=== PATIENT | female | born 1950 | race Caucasian/White ===

== ENCOUNTER → 2019-06-10 08:50 | Outpatient (BNVA) | payer MEDICARE, SELFPAY | PROVIDERS: Family Provider Electrodiagnostic Medicine; PCP Electrodiagnostic Medicine; Visit Provider Specialist | DX: Z48.89 Encounter for other specified surgical aftercare (principal); Z96.642 Presence of left artificial hip joint | CPT/HCPCS: 73502 ==

== ENCOUNTER 2019-07-02 06:00 | Outpatient (CLI) | payer MEDICARE, SELFPAY | END 2019-07-02 08:00 | disposition home or self-care (01) | LOC: CCL 01-14 12:26 | PROVIDERS: Family Provider Electrodiagnostic Medicine; PCP Electrodiagnostic Medicine; Visit Provider Internal Medicine Cardiovascular Disease | DX: I20.0 Unstable angina (principal); I10 Essential (primary) hypertension; E78.5 Hyperlipidemia, unspecified | CPT/HCPCS: J1644; J2001 ==

== ENCOUNTER 2019-07-02 12:22 | Observation (INO) | payer MEDICARE, SELFPAY ==
[2019-07-02] VITALS (30 sets, daily range): BP systolic 105–143; BP diastolic 52–80; PULSE 55–84; RESP 11–23; TEMP 36.7–36.9; O2SAT 89–98; BMI 26.9
--- NOTE | 2019-07-02 09:00 | XACV_ITS ---
Ht: 163 cm Wt: 71 kg BSA: 1.81 m2 Gender: Female : 1950 Any Known Allergies: No known allergies Exam Priority: Routine Procedure(s): Procedure Description: Diagnostic procedure Procedure Description: PCI procedure Procedure Description: Left Heart Catheterization Procedure Description: Drug Eluting Coronary Stent Procedure Description: PTCA Procedure Description: Miscellaneous Procedure Description: ACT Procedure Description: Coronary Angiography Diagnostic Cath Status: Elective Diagnostic Findings CX has 0% stenosis. RCA has 0% stenosis. LM: Mild 30% stenosis, ROSA: 3 flow. pLAD to Mid Left Anterior Descending Coronary Artery: Moderate 60% stenosis, ROSA: 3 flow. 1st Diagonal Coronary Artery: Severe 90% stenosis, ROSA: 2 flow. Coronary angiography shows right dominance. PCI Status: Elective PCI Indication: New Onset Angina <= 2 months Interventional Findings 1st Diagonal Coronary Artery: 90% stenosis treated with AB MINI TREK 2.00X6 RX BALLOON, T R BOBBY 2.25X8 SAMREEN, and MDT R BOBBY 2.25X12 SAMREEN. 0% residual stenosis, ROSA: 3 flow. Please note that these 2 stents were placed in overlapping fashion due to distal remnant significant stenosis after placing for stent. Both these stents were then postdilated with stent balloon at high MIRELLA. Wire was then crossed into mid LAD. Bifurcating mid LAD was then dilated with noncompliant M.D EUPHORA 2.5x6 millimeters balloon at 12 MIRELLA. Excellent angiographic result with ROSA-3 flow was achieved in both diagonal and mid to distal LAD. Conclusions There is moderate coronary artery disease with two vessel disease. 1st Diagonal Coronary Artery was treated with Balloon and two Drug Eluting Stent. Recommendations 1-Return to inpatient for close monitoring and routine cath care2-Risk factor modification for secondary prevention3-Statin and aspirin 81 mg life-long, if tolerated4-Continue Plavix 75mg p.o. daily for at least one year. We will assess at the end of one year again to continue if further or not5-Continue optimal medical management6-Follow up with Dr. Anna in four weeks and your primary care in 10 days. Pressures Phase:Rest AO : 95 mmHg / 64 mmHg ( 78 mmHg ) @ 5:16:00 AM 103 mmHg / 71 mmHg ( 86 mmHg ) @ 5:16:00 AM 93 mmHg / 59 mmHg ( 75 mmHg ) @ 5:19:00 AM 109 mmHg / 62 mmHg ( 81 mmHg ) @ 5:27:00 AM 92 mmHg / 60 mmHg ( 76 mmHg ) @ 5:42:00 AM 115 mmHg / 68 mmHg ( 88 mmHg ) @ 5:48:00 AM 106 mmHg / 61 mmHg ( 80 mmHg ) @ 5:57:00 AM Clinical Evaluation EBL: 5mL-10mL Procedural Details ns bolus stopped 142ml infused. Cardiovascular Instability: No. [facility] time/date stamp having techinal issues. All documentation and procudure done on 07/02/2019. Start time 0945. Correct Patient: Yes; Correct Procedure: Yes; Correct Site: Yes; Correct Patient Position: Yes; Correct Supplies: Yes; Dried Flammable Prep: Yes; Blood Products Available: No;. [id number]. Procedure Consent Obtained. Pre-Procedure Time Out. Identified patient by full name and date of as verbalized by the patient/guarantor. Does the consent match the physician's order: Yes. Accurate & Complete Informed Consent: Yes. Inpatient/Outpatient History & Physical on Chart: Yes. If H&P is completed, is and addenduem needed: N/A; If yes, is the addendum complete: N/A. Visualize and Verify Site with Patient/Guarantor: N/A. Relevant Radiology Images available: Yes. Pre-op teaching completed and patient verbalized understanding. The risks, benefits, and alternatives of sedation and/or procedure were discussed by physician. The patient agrees to continue. Procedure started. Current diagnosis: Unstable angina. PERRLA. 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 Lungs clear x 5 lobes. IV Site on Arrival: 20 gauge in the left anticubital. IV Fluids: 0.9% NaCl at KVO. 0 mL infused prior to analytical lab technician. Pre Procedural Pulses: bilateral dorsalis pedis was 2+. Pre Procedural Pulses: bilateral posterior tibial was 2+. Pre Procedural Pulses: bilateral radial was 2+. Oxygen started at 2liters/min via nasal canula. right groin was prepped with chloroprep then draped in the usual sterile fashion. right radial was prepped with chloroprep then draped in the usual sterile fashion. Physician notified. Correct patient, site and procedure confirmed by cath team. Physician arrived. Equipment: 6F - Radial. Cardiac Cath Pack. ACIST Manifold Kit Model BT 2000. Heparinized Saline (2 units/mL), 1000 mL bag. Baseline sample Acquired. HR: 60 BPM. Physician scrubbed in. Immediate Pre-Procedure Time Out. Lidocaine 1% infiltrated to the right radial. Arterial access obtained. A 5 [place] citizen TIG catheter in over wire. Multiple views taken of left coronary artery. Catheter redirected to the RCA. Multiple views taken of right coronary artery. Catheter out. Inventory is My Dentistgar XT .014 190cm [address] Guidewire. 6 [place] citizen XB 3 guide catheter was inserted over the wire. [place] guidewire was advanced through the guide catheter to lesion in the diaganol. Inflation number : 1 A AB MINI TREK 2.00X6 RX BALLOON was prepped and advanced across the 1st Diag , then inflated to 8 MIRELLA for 0:10 seconds. Inflation number: 2 The AB MINI TREK 2.00X6 RX BALLOON was reinflated across the 1st Diag, to 8 MIRELLA for 0:08 seconds. Inflation number: 3 The AB MINI TREK 2.00X6 RX BALLOON was reinflated across the 1st Diag, to 10 MIRELLA for 0:10 seconds. Inflation number: 4 The AB MINI TREK 2.00X6 RX BALLOON was reinflated across the 1st Diag, to 12 MIRELLA for 0:14 seconds. Patient's family updated. Results checked. Balloon out. Inflation Number : 5 A MDT R BOBBY 2.25X8 SAMREEN -Lot Number#[id number] exp 12-04-2020 was prepped and advanced across the 1st Diag. The stent was deployed at 12 MIRELLA for 0:08 seconds. Inflation number: 6 The stent balloon was then re-inflated across the 1st Diag to 12 MIRELLA for 0:06 seconds. Inflation number: 7 The stent balloon was then re-inflated across the 1st Diag to 14 MIRELLA for 0:11 seconds. Stent balloon out over wire. [place] repositioned to distal LAD. Wire out. Inflation number : 1 A MDT NC EUPHORA RX 2.66M50SW BALLOON was prepped and advanced across the Mid LAD , then inflated to 14 MIRELLA for 0:10 seconds. ACT drawn. Results 328 seconds. Therapeutic limits - pre-heparin administration 90-150 seconds and monitoring heparin during a vascular procedure >250 seconds. Inflation Number : 8 A MDT R BOBBY 2.25X12 SAMREEN -Lot Number#[id number] exp 03-07-2020 was prepped and advanced across the 1st Diag. The stent was deployed at 16 MIRELLA for 0:16 seconds. Inflation number: 9 The stent balloon was then re-inflated across the 1st Diag to 0 MIRELLA for 0:00 seconds. Inflation number: 10 The stent balloon was then re-inflated across the 1st Diag to 16 MIRELLA for 0:04 seconds. Guide catheter out. A TR Band was successful obtaining hemostatsis at the Right Radial artery insertion site. TR band placed. Hemostasis obtained. Post Procedure: Pulses reassessed and unchanged. PERRLA. 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 No VTE prophylaxis required. Total IV fluids: 209 mL. Fluoro: 15:40. Contrast type used: Omnipaque 300 mgI/mL, 500 mL bottle. Medication's Wasted: Nitro = 49.4 mg. Medication's Wasted: Heparin = 4000 units. Medication's Wasted: Lidocaine 1% = 18 mL. Complications: none. Estimated blood loss: 5mL-10mL. Procedure completed. Patient transferred by wheelchair to 1st floor. Post-op diagnosis: obstructive disease of diag. PCI Indication: New Onset Angina. [facility] Clinical Fraility Score: 4: Vulnerable. Librarian Helper Indications: New Onset Angina. Chest Pain Symptom Assessment: Typical Angina Symptoms. Vital chart was stopped. Site: Right Radial artery Sheath Size: 6 Fr Hemostasis Method: TR Band Hemostasis Success: Successful Procedure Medications Start: 11:03 AM Stop: : AM Medication: Versed Amount: 1 mg Route: I.V. Start: 11:03 AM Stop: : AM Medication: Fentanyl Amount: 25 mcg Route: I.V. Start: 11: AM Stop: : AM Medication: Versed Amount: 1 mg Route: I.V. Start: 11: AM Stop: : AM Medication: Fentanyl Amount: 25 mcg Route: I.V. Start: 11:15 AM Stop: :15 AM Medication: Heparin Amount: 5000 units Route: I.V. Start: 11:23 AM Stop: :23 AM Medication: Heparin Amount: 2000 units Route: I.V. Start: 11:27 AM Stop: :27 AM Medication: Versed Amount: 1 mg Route: I.V. Start: 11:27 AM Stop: 11:27 AM Medication: Fentanyl Amount: 25 mcg Route: I.V. Start: 11:38 AM Stop: 11:38 AM Medication: 0.9% Saline Amount: 250 ml Route: I.V. bolus Start: 11:48 AM Stop: 11:48 AM Medication: Nitrogylcerin Amount: 200 mcg Route: I.C. Start: 11:50 AM Stop: 11:50 AM Medication: Versed Amount: 1 mg Route: I.V. Start: 11:50 AM Stop: 11:50 AM Medication: Fentanyl Amount: 25 mcg Route: I.V. Start: 11:57 AM Stop: 11:57 AM Medication: Nitrogylcerin Amount: 200 mcg Route: I.C. I, the attending physician, have reviewed and verified all procedure medications. Yes, all medications given per verbal order History/Risk Factors Hypertension: Yes Dyslipidemia: Yes Peripheral Arterial Disease (PAD): No Myocardial Infarction (TN): No Obesity: No Renal Disease: No Tobacco Use: Never Prior Interventions PCI: Yes CABG: No Valve Surgery: No Date of PCI: 11/17/2017 Report Signatures Finalized by:Rafa Anna MD on 07/16/2019 1:10:57 PM
[2019-07-02] MEDS: diphenhydrAMINE 50 mg Capsule PO (09:38)
[2019-07-02 09:48] LABS: Hematocrit 39.5 % (37.0-47.0); Hemoglobin 12.9 g/dL (11.5-15.3); Mean Corpuscular HGB Conc 32.7 g/dL (30.0-36.0); Mean Corpuscular Hemoglobin 30.8 pg (28.0-34.0); Mean Corpuscular Volume 94.3 fL (81-99); Mean Platelet Volume 9.3 fL (7.4-10.4); Platelet Count 325 10^3/cmm (130-400); Red Blood Count 4.19 10^6/uL (4.1-5.3); Red Cell Distribution Width 13.4 % (12.1-15.1); White Blood Count 4.9 10^3/uL (4.0-10.0)
[2019-07-02 10:01] LABS: Anion Gap 16.3 (5-19); Blood Urea Nitrogen 24 mg/dL (8-23); Calcium 9.9 mg/dL (8.5-10.5); Carbon Dioxide 29 mmol/L (22-29); Chloride 97 mmol/L (98-107); Glucose 95 mg/dL (74-106); Osmolality Calculated 283 mOsm/kg (285-295); Potassium 4.3 mmol/L (3.5-5.1); Sodium 138 mmol/L (136-145)
[2019-07-02 10:18] LABS: INR 0.99 (0.8-1.2)
[2019-07-02 10:38] LABS: Absolute Eosinophils 0.1 10^3/cmm (0.0-0.7); Absolute Segmented Neutrophil 3.6 10/cmm (1.6-7.1); Band Neutrophils Absolute 0.2 10^3/cmm (0.0-1.2); Eosinophils 3 %; Lymphocytes 12 %; Monocytes Absolute 0.2 10^3/cmm (0.1-0.6); Platelet Estimate Normal (Normal); Segmented Neutrophils 75 %; Total Cells Counted 100 (0-100)
[2019-07-02] MEDS: sertraline 50 mg Tablet 25 MG PO (14:57)
[2019-07-02] MEDS: atorvastatin 40 mg Tablet 20 MG PO (14:58)
[2019-07-02] MEDS: meloxicam 7.5 mg tablet 15 MG PO (14:58)
[2019-07-02] MEDS: clopidogrel 75 mg Tablet PO (14:58)
[2019-07-02] MEDS: docusate sodium 100 mg Capsule PO (14:58)
[2019-07-02] MEDS: aspirin 81 mg EC Tablet PO (14:58)
[2019-07-02] MEDS: FUROsemide 40 mg Tablet PO (17:26)
[2019-07-02] MEDS: levETIRAcetam 500 mg Tablet PO (17:27)
--- NOTE | 2019-07-02 20:10 | PC.NURSE ---
2 CC REMOVED FROM TR BAND PER PROTOCOL FOR TR BAND REMOVAL, WILL CONTINUE TO MONITOR SITE. CALL LIGHT WITHIN REACH. CARE CONTINUED.
[2019-07-02] MEDS: ropinirole 1 mg Tablet 5 MG PO (21:01)
--- NOTE | 2019-07-02 21:30 | PC.NURSE ---
2 CC's of air removed from patient's TR band, patient tolerating well, no oozing or blood at site. Will continue to monitor patient and call light within reach. Care continued.
--- NOTE | 2019-07-02 22:30 | PC.NURSE ---
Removed 3 CC's of air from TR band, site is clean without blood, no swelling noted at this time. Call light within reach. Care continued.
--- NOTE | 2019-07-02 23:56 | PC.NURSE ---
Patient had small episode of emesis of what appeared orange in color and particles of food. Cool rag applied to forehead of patient, notified Dr. Byrd verbally, received new order for Zofran IVP. Call light within reach. Care Continued.
[2019-07-03] MEDS: ondansetron 2 mg/ML SDV 2 mL 4 MG IVP (00:12)
[2019-07-03 03:14] VITALS: BP 123/56; PULSE 65; RESP 19; TEMP 36.9; O2SAT 90
[2019-07-03] MEDS: isosorbide mononitrate ER 60 mg Tablet PO (06:01)
[2019-07-03 07:37] VITALS: BP 93/50; PULSE 67; RESP 18; TEMP 36.6; O2SAT 93
[2019-07-03] MEDS: docusate sodium 100 mg Capsule PO (08:55)
[2019-07-03] MEDS: meloxicam 7.5 mg tablet 15 MG PO (08:55)
[2019-07-03] MEDS: sertraline 50 mg Tablet 25 MG PO (08:56)
[2019-07-03] MEDS: pantoprazole DR 40 mg Tablet PO (08:56)
[2019-07-03] MEDS: metoprolol succinate ER (24 HR) 25 mg Tablet 12.5 MG PO (08:56)
[2019-07-03] MEDS: aspirin 81 mg EC Tablet PO (08:56)
[2019-07-03] MEDS: levETIRAcetam 500 mg Tablet PO (08:56)
[2019-07-03] MEDS: clopidogrel 75 mg Tablet PO (08:56)
[2019-07-03] MEDS: FUROsemide 40 mg Tablet PO (08:56)
[2019-07-03] MEDS: atorvastatin 40 mg Tablet 20 MG PO (08:57)
--- NOTE | 2019-07-03 11:04 | PC.CHAP ---
Pastoral Care Encounter/Spiritual Assessment Type of Contact [] Declined housing specialist visit [] Patient/Family/Request visit [] Outpatient visit [] Follow-up visit [] Physician referral [] Code/Alert [x] Routine visit [] Staff referral [] Actively dying [] Patient sleeping [] Family support [] [] Out of room [] Palliative care [] [] Receiving care in room [] Pre-surgical visit [] Trauma [] Long length of stay [] ICU visit [] Other: Relational/Emotional Strength [] Patient feels connected with others/family/visitors/staff [] Distress [] Loneliness/isolation [] Abandonment Spirituality of Patient [x] Person of Sarah [] Attends Shinto of their Sarah [x] Believes in Prayer [] Reads Bible or Scientologist materials [] There are Spiritual issues to be addressed Mechanical Laboratory Technician Interventions [x] Prayer [] Active listening [] Non-anxious presence [] Spiritual/emotional support [] Crisis/trauma care [] Spiritual counseling [] Bereavement support [] Provided bereavement packet [] Provided Bible/devotional materials [] Provided toy/stuffed animal, coloring book to patient or family member [] Provided Communion [] Anointing/[place] [] Salvation [x] Completed spiritual assessment [] Other: Impact on Illness or Injury [] Angry [] Fearful [] Anxious [] Often cries [] Exhaustion [] Unable to work [] Unable to attend cheondoism [] Unable to walk/stand [] Unable to read [] Unable to drive [] Unable to eat/drink [] Unable to sleep [] Unable to be with family [] Patient intubated [] Other: Summary Patient expecting to leave unit today. Patients sister present to help take her home. Time spent with patient 15 min
[2019-07-03 12:00] VITALS: BP 109/46; PULSE 71; RESP 18; O2SAT 91
--- NOTE | 2019-07-03 13:46 | P.SS_ITS ---
Short Stay Summary Providers Date of Admit/Discharge: 07/03/19 Attending Provider: Rafa Anna MD Primary Care Provider: Justin Chapman DO Chief Complaint: Unstable angina HPI History of Present Illness Karina Leija is a 69 year old female Past medical history significant for coronary artery disease history of prior proximal to mid LAD stent, history of nonobstructive disease of diagonal branch, History of hypertension, history of hyperlipidemia, history of aortic valve mild to moderate stenosis and mild insufficiency underwent coronary angiogram yesterday for Worsening of angina despite of optimization of medicine. She was found to have ostial and proximal significant 90 and 75% diagonal branch disease which has worsened from the prior coronary angiogram couple of years ago. She was treated with balloon angioplasty followed by 2 overlapping drug-eluting stent from ostial to proximal diagonal branch. Excellent angiographic result with ROSA-3 flow was achieved. LAD stent was widely patent. She has 30% distal left main. Circumflex and RCA has luminal irregularities. Patient tolerated procedure well without any post op complication. She was kept overnight for any possible complication. This morning she is doing fine from a cardiac perspective denies chest pain PND orthopnea. She has mild bruising of the right wrist otherwise stable. She is being discharged. Home Meds/Allergies Home Medications and Allergies Home Medications Medication Instructions Recorded Confirmed Type acetaminophen 500 mg tablet 1,000 mg PO .prn PRN tab 06/10/19 07/02/19 History aspirin 81 mg tablet,delayed 81 mg PO ONCE 06/10/19 07/02/19 History release clopidogrel 75 mg tablet 75 mg PO ONCE 06/10/19 07/02/19 History docusate sodium 100 mg capsule 100 mg PO ONCE cap 06/10/19 07/02/19 History isosorbide mononitrate 60 mg 60 mg PO QAM 06/10/19 07/02/19 History tablet,extended release 24 hr levetiracetam 500 mg tablet 500 mg PO BID 06/10/19 07/02/19 History magnesium 400 mg PO ONCE 06/10/19 07/02/19 History meloxicam 15 mg tablet 15 mg PO ONCE 06/10/19 07/02/19 History omeprazole 40 mg capsule,delayed 40 mg PO ONCE cap 06/10/19 07/02/19 History release potassium chloride 20 mEq 20 meq PO ONCE tab 06/10/19 07/02/19 History tablet,extended release sertraline 25 mg tablet 25 mg PO Q24H 06/10/19 07/02/19 History simvastatin 20 mg tablet 20 mg PO ONCE 06/10/19 07/02/19 History furosemide 40 mg tablet 40 mg PO BID 06/20/19 07/02/19 History ropinirole 5 mg tablet 5 mg PO QDAY 06/20/19 07/02/19 History Allergies Allergy/AdvReac Type Severity Reaction Status Date / Time No Known Allergies Allergy Verified 07/02/19 10:00 PFSH Acute PFSH: Statuses (acute, chronic, etc) shown below reflect problem list status as previously entered and may not be historically accurate Medical History (Updated 07/03/19 @ 13:54 by Rafa Anna MD) Angina pectoris (Acute) Status post PCI to diagonal branch. No more angina Aortic stenosis, mild (Acute) Stable CAD (coronary artery disease), [place] coronary artery (Acute) Diagonal branch for significant ostial and proximal diagonal lesion. It was treated with 2 overlapping drug-eluting stents Primary osteoarthritis of both hips (Acute) Surgical History History of total hip arthroplasty (Acute) Family History Grandmother CAD (coronary artery disease) Hypertension Father CAD (coronary artery disease) Cancer Diabetes Hypertension Lung disease Mother Cancer Dementia Diabetes Hypertension Daughter Chronic kidney disease (CKD) eldest Hypertension Daughter Chronic kidney disease (CKD) third child Sister Hyperlipidemia all sisters Hypertension Lung disease Unknown Suicide maternal aunt-GSW- mid 40s Denies family history of Clotting disorder Psychiatric illness Anesthesia complication Bleeding disorder Family history of premature coronary artery disease Stroke Social History Smoking and tobacco status: never smoked Second hand smoke exposure: No Alcohol intake: never Vitals/I&O/Wt Last Vital Signs Temp 97.8 F 07/03/19 07:37 Pulse 71 07/03/19 12:00 Resp 18 07/03/19 12:00 BP 109/46 07/03/19 12:00 Pulse Ox 91 07/03/19 12:00 07/02/19 07/03/19 07/03/19 22:59 06:59 14:59 Intake Total 240 / 240 0 / 240 360 / 360 Output Total 4 / 4 60 / 64 Balance 236 / 236 -60 / 176 360 / 360 Weight last 48 hrs Weight 157 lb Physical Exam Narrative: EXAM NARRATIVE: GENERAL: Patient is alert, awake and oriented x3. NECK: No jugular vein distension. HEENT: No cyanosis. No icterus. No pallor. HEART: Regular S1 and S2. 2/6 systolic and 80 diastolic murmur, rub or gallop. LUNGS: Clear to auscultate bilaterally. ABDOMEN: Soft, nontender and nondistended. Positive bowel sounds. No guarding, rebound or tenderness. CENTRAL NERVOUS SYSTEM: Grossly nonfocal. EXTREMITIES: Lower extremities without edema bilaterally. Right wrist mild bruising Hospital Course Admission Diagnoses: Angina unstable Coronary artery disease Hypertension Aortic stenosis Hospital Course: As above Discharge Summary: As above SSS Data Data Completed and Pending: Pending at discharge Category Date Time Status MATERIAL ATTENDANT request for service Routin e Exams 07/02/19 09:00 Taken Diagnoses at Discharge Discharge Diagnosis (1) CAD (coronary artery disease), [place] coronary artery: Status: Acute Problem details: Diagonal branch for significant ostial and proximal diagonal lesion. It was treated with 2 overlapping drug-eluting stents (2) Aortic stenosis, mild: Status: Acute Problem details: Stable (3) Angina pectoris: Status: Acute Problem details: Status post PCI to diagonal branch. No more angina Discharge Plan Discharge Patient Disposition: Home, Self-Care Condition: Stable Prescriptions: Continued ropinirole [Requip] 5 mg tablet 5 mg PO QDAY RF: 0 furosemide 40 mg tablet 40 mg PO BID RF: 0 metoprolol succinate 25 mg capsule,sprinkle,ER 24hr 12.5 mg PO QDAY Qty: 30 RF: 3 nitroglycerin 0.4 mg tablet, sublingual 0.4 mg SUBLINGUAL Q5M PRN (Reason: chest pain) Qty: 30 RF: 2 sertraline [Zoloft] 25 mg tablet 25 mg PO Q24H RF: 0 isosorbide mononitrate 60 mg tablet extended release 24 hr 60 mg PO QAM RF: 0 clopidogrel 75 mg tablet 75 mg PO ONCE RF: 0 potassium chloride 20 mEq tablet extended release 20 meq PO ONCE RF: 0 aspirin 81 mg tablet,delayed release (DR/EC) 81 mg PO ONCE RF: 0 magnesium 400 mg PO ONCE RF: 0 simvastatin 20 mg tablet 20 mg PO ONCE RF: 0 docusate sodium [Colace] 100 mg capsule 100 mg PO ONCE RF: 0 meloxicam 15 mg tablet 15 mg PO ONCE RF: 0 levetiracetam 500 mg tablet 500 mg PO BID RF: 0 omeprazole 40 mg capsule,delayed release(DR/EC) 40 mg PO ONCE RF: 0 acetaminophen [Tylenol Extra Strength] 500 mg tablet 1,000 mg PO .prn PRN (Reason: Pain) RF: 0 Discharge Orders: Discharge Order (Routine); Ordered 07/03/19 Ordered By: Rafa Anna Discharge Diet: Cardiac Discharge Activity: Resume usual activity Activity Restrictions/Additional Instructions: No lifting Or driving with right Hand next 2 days. Follow-up with Chelsie Gamble cardiology nurse Practitioner in [address] Anna in 3 months. Continue Plavix for at least 2 years Attestations Medical Necessity Statement*: Patient can be discharged home today Time Spent in Patient Care*: less than 30 min Quality Metrics Clinical Quality Measures: During this hospital stay, did patient experience: None Coding Level of Care Code New Pt Acute Utilization Management Um Nurse for Chg Fwd Patient Type New History Expanded Problem Focused Exam Expanded Problem Focused Medical Decision Making Moderate Complexity Diagnoses CAD (coronary artery disease), [place] coronary artery I25.10 Aortic stenosis, mild I35.0 Angina pectoris I20.9
[2019-07-03 14:40] VITALS: BP 109/46; PULSE 71; RESP 18; O2SAT 91
== END 2019-07-03 15:17 | disposition home or self-care (01) ==
LOC: CSU 12:24
PROVIDERS: Admitting Provider Internal Medicine Cardiovascular Disease; Family Provider Electrodiagnostic Medicine; PCP Electrodiagnostic Medicine; Visit Provider Internal Medicine Cardiovascular Disease
DX: I25.110 Atherosclerotic heart disease of native coronary artery with unstable angina pectoris (principal); I35.0 Nonrheumatic aortic (valve) stenosis; Z79.82 Long term (current) use of aspirin; Z82.49 Family history of ischemic heart disease and other diseases of the circulatory system; Z83.3 Family history of diabetes mellitus; I10 Essential (primary) hypertension
CPT/HCPCS: 12345; 36415; 80048; 85007; 85027; 85347; 85610; 93454; 96375; C1725; C1769; C1874; C1887; C1894; C9600; G0378; J1644; J2250; J2405; J3010; J3490; J7030; Q0163; Q9967

== ENCOUNTER → 2019-07-10 11:50 | Outpatient (BNVA) | payer MEDICARE, SELFPAY | PROVIDERS: Family Provider Electrodiagnostic Medicine; PCP Electrodiagnostic Medicine; Visit Provider Nurse Practitioner Family | DX: I25.10 Atherosclerotic heart disease of native coronary artery without angina pectoris (principal); I35.0 Nonrheumatic aortic (valve) stenosis; I20.9 Angina pectoris, unspecified | CPT/HCPCS: 80048 ==

== ENCOUNTER 2019-07-11 14:35 | Emergency (ER) | payer MEDICARE, SELFPAY ==
[2019-07-11 14:36] VITALS: BP 118/73; PULSE 75; RESP 18; TEMP 36.8; O2SAT 97; BMI 26.4
--- NOTE | 2019-07-11 14:40 | ED_ITS ---
Entered by Yulia Agustin, acting as scribe for Cinthia Newsome MD HPI - Chest Pain General: Chief Complaint: Chest Pain Stated Complaint: CHEST PRESSURE Time Seen by Provider: 07/11/19 14:39 Source: patient and RN notes reviewed Mode of arrival: EMS Limitations: no limitations History of Present Illness: HPI narrative: 69 yo female presents to ED with complaints of chest pain. She said the pain radiates up to L shoulder and into her L jaw. She states Nitro helped relieve the pain. She had 2 stents placed 2 weeks ago. She said she has tunnel vision. She said it began about 0900 this morning when she woke and the pain has worsened throughout day. She says that she has been having similar chest pain since the stents - but today it didn't go away as it normally does. complaint: chest pain Pertinent past history: coronary artery disease and other (stents placed 2 weeks ago) Onset (ago): hour(s) (5.5) Timing of current episode: constant Prior episodes: Yes Onset: during rest Pain location: substernal Pain radiation: jaw/teeth and left shoulder Severity: moderate Quality: similar to prior OK Relieving factors: nitroglycerin Exacerbating factors: exertion Context: recent surgery (2 stents placed 2 weeks ago) Associated symptoms: Reports abdominal pain; Deny diaphoresis, dyspnea or fever(s) Treatment prior to arrival: nitroglycerin Risk Factors: Thoracic aortic dissection risk factors: none Review of Systems Const: Denies: fever, chills, change in appetite, night sweats or diaphoresis Eyes: Denies: change in vision ENMT: Denies: throat pain or ear pain Card: Denies: swelling of feet/ankles, shortness of breath on exertion or shortness of breath when lying down Resp: Denies: shortness of breath or productive cough GI: Reports: abdominal pain : Denies: flank pain or difficulty urinating Musc: Denies: back pain Skin/Breast: Denies: rash Neuro: Denies: headache, numbness in extremities or weakness in extremities Psych: Denies: depression Endo: Denies: excessive thirst Clement/Lymph: Denies: easy bruising [facility] ED PFSH: Medical History (Updated 07/11/19 @ 17:50 by Cinthia Newsome MD) Angina pectoris Status post PCI to diagonal branch. No more angina Aortic stenosis, mild Stable CAD (coronary artery disease), [place] coronary artery Diagonal branch for significant ostial and proximal diagonal lesion. It was treated with 2 overlapping drug-eluting stents Primary osteoarthritis of both hips Surgical History (Updated 07/10/19 @ 11:04 by Monalisa Brown RN) History of total hip arthroplasty Social History (Updated 07/10/19 @ 11:04 by Monalisa Brown RN) Smoking and tobacco status: former smoker Second hand smoke exposure: Yes Alcohol intake: never Physical Exam Const: COMMON NORMALS: no apparent distress, oriented x3 and alert GENERAL APPEARANCE: cooperative and well developed; not in distress and not diaphoretic ORIENTATION/CONSCIOUSNESS: Yes awake, Yes oriented to person, Yes oriented to place and Yes oriented to time HENMT: COMMON NORMALS: normocephalic, head/scalp atraumatic, external ears normal, external nose normal and moist oral mucous membranes HEAD & SCALP: normocephalic and atraumatic FACE & SINUS: normal facial exam; no facial tenderness NOSE: external nose normal EXTERNAL EAR: Yes external ears normal MOUTH: oral and palatal mucosa normal, lip normal and tongue normal TEETH & GINGIVA: no abnormal tooth and associated gingiva THROAT: posterior oropharynx normal and uvula midline Eye: COMMON NORMALS: PERRL and EOMs intact bilaterally PUPIL: Yes PERRL Neck/C-Spine: COMMON NORMALS: full ROM, supple and no JVD GENERAL: Yes normal visual inspection and Yes trachea midline CERVICAL SPINE: No cervical spine tenderness Lymph: LYMPHATIC: no lymphadenopathy noted Chest: COMMONS NORMALS: inspection of chest normal Resp: COMMON NORMALS: normal respiratory effort, no use of accessory muscles and clear to auscultation bilaterally EFFORT & INSPECTION: Yes able to speak in complete sentences and Yes symmetric chest movement AUSCULTATION: clear to auscultation bilaterally Cardio: COMMON NORMALS: no JVD, regular rate, regular rhythm, no gallops and peripheral pulses 2+ throughout RATE: regular rate RHYTHM: regular rhythm HEART SOUNDS: murmur systolic (2) PERIPHERAL PULSES: pulses 2+ throughout GI: COMMON NORMALS: normal to inspection, nondistended, normoactive bowel sounds, soft to palpation and non-tender PALPATION: Yes soft Back/Pelvis: COMMON NORMALS: thoracic and lumbar spine normal to inspection and thoraco-lumbar ROM normal Extremity: COMMON NORMALS: normal to inspection, full ROM and normal capillary refill Neuro: COMMON NORMALS: oriented x3, CN's II-XII intact bilaterally, moves all extremities, no focal motor deficits and no sensory deficits noted SENSORIUM/ORIENTATION: Yes alert, Yes oriented to person, Yes oriented to place and Yes oriented to time Psych: COMMON NORMALS: mental status grossly normal, thought process normal, cooperative, affect normal, speech normal and activity/motor behavior normal SPEECH: Yes normal speech THOUGHT PROCESS: normal thought process Skin: COMMON NORMALS: no rashes or lesions noted and skin turgor normal GENERAL SKIN EXAM: no rashes or lesions noted and turgor normal Course ED course: Patient with recent stents. She has been having intermittent chest pains since then. She saw the DEVELOPMENT SCIENTIST for cardiology yesterday and things were fine. She is taking all of her medications as prescribed. Her EKGs and troponins here are reassuring and she is feeling better on re-evaluation. She will contact Dr. Anna if the symptoms continue. Vital Signs: Vital signs: Vital Signs Temperature 98.2 F 07/11/19 14:36 Pulse Rate 75 07/11/19 18:05 Respiratory Rate 20 H 07/11/19 18:05 Blood Pressure 108/52 07/11/19 18:05 Pulse Oximetry 94 07/11/19 18:05 MDM - Chest Pain Lab Data: Labs: Lab Results 07/11/19 07/11/19 07/11/19 Range/Units 14:22 14:22 14:22 WBC 4.8 (4.0-10.0) 10^3/ uL RBC 3.89 L (4.1-5.3) 10^6/u L Hgb 11.9 (11.5-15.3) g/dL Hct 36.9 L (37.0-47.0) % MCV 94.9 (81-99) fL MCH 30.6 (28.0-34.0) pg MCHC 32.2 (30.0-36.0) g/dL RDW 13.4 (12.1-15.1) % Plt Count 332 (130-400) 10^3/c mm MPV 9.3 (7.4-10.4) fL Neut % (Auto) 63.7 % Lymph % (Auto) 23.3 % Evangeline % (Auto) 8.7 % Eos % (Auto) 3.3 % Baso % (Auto) 0.8 % Neut # (Auto) 3.1 (1.8-7.7) 10^3/u L Lymph # (Auto) 1.1 (0.8-4.8) 10^3/u L Evangeline # (Auto) 0.4 (0.2-0.9) 10^3/u L Eos # (Auto) 0.2 (0.0-0.8) 10^3/u L Baso # (Auto) 0.0 (0.0-0.1) 10^3/u L Nucleated RBC % (a uto) 0 % Nucleated RBCs # 0.0 /100WBC PT 13.20 (10.5-13.3) SECO NDS INR 0.98 (0.8-1.2) Sodium 136 (136-145) mmol/L Potassium 4.7 (3.5-5.1) mmol/L Chloride 98 (98-107) mmol/L Carbon Dioxide 27 (22-29) mmol/L Anion Gap 15.7 (5-19) BUN 24 H (8-23) mg/dL Creatinine 1.2 H (0.5-0.9) mg/dL Glucose 82 (65-115) mg/dL Calcium 9.6 (8.5-10.5) mg/dL Total Bilirubin 0.2 (0.15-1.2) mg/dL AST 17 (0-32) U/L ALT 8 (0-33) U/L Alkaline Phosphata se 185 H (35-105) IU/L Troponin T Baselin e Troponin T 120 Min [place] (0-10) ng/mL Delta Troponin T (0-10) ABS# NT-Pro-B Natriuret Pep 584 H (0-125) pg/mL Total Protein 7.3 (6.6-8.7) g/dL Albumin 4.6 (3.5-5.2) g/dL Globulin 2.7 (1.3-4.6) g/dL Lipase 43 (13-60) U/L Urine Color (Yellow) Urine Appearance (CLEAR) Urine pH (5-7) Ur Specific Gravit y (1.005-1.030) Urine Protein (Negative) Urine Glucose (UA) (Normal) Urine Ketones (Negative) Urine Occult Blood (Negative) Urine Nitrate (Negative) Urine Bilirubin (NEGATIVE) Urine Urobilinogen (Negative) mg/dL Ur Leukocyte Sinai ase (Negative) 07/11/19 07/11/19 07/11/19 Range/Units 14:22 16:31 16:32 WBC (4.0-10.0) 10^3/ uL RBC (4.1-5.3) 10^6/u L Hgb (11.5-15.3) g/dL Hct (37.0-47.0) % MCV (81-99) fL MCH (28.0-34.0) pg MCHC (30.0-36.0) g/dL RDW (12.1-15.1) % Plt Count (130-400) 10^3/c mm MPV (7.4-10.4) fL Neut % (Auto) % Lymph % (Auto) % Evangeline % (Auto) % Eos % (Auto) % Baso % (Auto) % Neut # (Auto) (1.8-7.7) 10^3/u L Lymph # (Auto) (0.8-4.8) 10^3/u L Evangeline # (Auto) (0.2-0.9) 10^3/u L Eos # (Auto) (0.0-0.8) 10^3/u L Baso # (Auto) (0.0-0.1) 10^3/u L Nucleated RBC % (a uto) % Nucleated RBCs # /100WBC PT (10.5-13.3) SECO NDS INR (0.8-1.2) Sodium (136-145) mmol/L Potassium (3.5-5.1) mmol/L Chloride (98-107) mmol/L Carbon Dioxide (22-29) mmol/L Anion Gap (5-19) BUN (8-23) mg/dL Creatinine (0.5-0.9) mg/dL Glucose (65-115) mg/dL Calcium (8.5-10.5) mg/dL Total Bilirubin (0.15-1.2) mg/dL AST (0-32) U/L ALT (0-33) U/L Alkaline Phosphata se (35-105) IU/L Troponin T Heidi prieto 19.18 Troponin T 120 Min [place] 17.03 H (0-10) ng/mL Delta Troponin T -1.97 L (0-10) ABS# NT-Pro-B Natriuret Pep (0-125) pg/mL Total Protein (6.6-8.7) g/dL Albumin (3.5-5.2) g/dL Globulin (1.3-4.6) g/dL Lipase (13-60) U/L Urine Color Straw (Yellow) Urine Appearance Clear (CLEAR) Urine pH 5 (5-7) Ur Specific Gravit y 1.010 (1.005-1.030) Urine Protein Neg (Negative) Urine Glucose (UA) Norm (Normal) Urine Ketones Negative (Negative) Urine Occult Blood Neg (Negative) Urine Nitrate Negative (Negative) Urine Bilirubin Neg (NEGATIVE) Urine Urobilinogen Norm (Negative) mg/dL Ur Leukocyte Sinai ase Negative (Negative) Imaging Data^: CXR: Radiologist's impression: [place] [address] XRay Report Signed Patient: Karina Leija #: [id number] : 8Acct#:[id number] Age/Sex: 69 / FADM Date: 07/11/19 Loc: [facility]/Bed: Attending Dr: Ordering Provider/Ordering MD: Cinthia Newsome MD Date of Service: 07/11/19 Procedure(s): XR chest 1V portable [id number] Accession Number(s): [id number] Report Number: [id number] PROCEDURE INFORMATION: Exam: XR Chest, 1 View Exam date and time: 07/11/2019 3:02 PM Age: 69 years old Clinical indication: Pain; Chest pressure; Prior surgery; Surgery type: RT breast ca/removal; Additional info: Chest pain TECHNIQUE: Imaging protocol: XR of the chest Views: 1 view. COMPARISON: CR Chest 2 views* [id number] 03/15/2019 1:40 PM FINDINGS: Lungs: Nonspecific interstitial thickening. No consolidation. Pleural space: Unremarkable. No pleural effusion. No pneumothorax. Heart/Mediastinum: Unremarkable. No cardiomegaly. Vasculature: Tortuosity of the thoracic aorta. Bones/joints: No acute findings. XR/XR chest 1V portable [id number] IMPRESSION: No acute findings. Dictated By:Catracho Mackey MD Signed By:Catracho Mackey MDSigned Date/Time:07/11/19 1602 DD/ EKG Data^: EKG 1: EKG interpretation date: 07/11/19 EKG interpretation time: 14:54 Interpretation: 65 HR, normal intervals, normal axis, normal ST segments Discharge Plan Discharge Patient Disposition: Home, Self-Care Clinical Impression: Chest pain Condition: Stable Prescriptions: No Action ropinirole [Requip] 5 mg tablet 5 mg PO QDAY RF: 0 furosemide 40 mg tablet 40 mg PO BID RF: 0 metoprolol succinate 25 mg capsule,sprinkle,ER 24hr 12.5 mg PO QDAY Qty: 30 RF: 3 nitroglycerin 0.4 mg tablet, sublingual 0.4 mg SUBLINGUAL Q5M PRN (Reason: chest pain) Qty: 30 RF: 2 sertraline [Zoloft] 25 mg tablet 25 mg PO Q24H RF: 0 isosorbide mononitrate 60 mg tablet extended release 24 hr 60 mg PO QAM RF: 0 clopidogrel 75 mg tablet 75 mg PO ONCE RF: 0 potassium chloride 20 mEq tablet extended release 20 meq PO ONCE RF: 0 aspirin 81 mg tablet,delayed release (DR/EC) 81 mg PO ONCE RF: 0 magnesium 400 mg PO ONCE RF: 0 simvastatin 20 mg tablet 20 mg PO ONCE RF: 0 docusate sodium [Colace] 100 mg capsule 100 mg PO ONCE RF: 0 meloxicam 15 mg tablet 15 mg PO ONCE RF: 0 levetiracetam 500 mg tablet 500 mg PO BID RF: 0 omeprazole 40 mg capsule,delayed release(DR/EC) 40 mg PO ONCE RF: 0 acetaminophen [Tylenol Extra Strength] 500 mg tablet 1,000 mg PO .prn PRN (Reason: Pain) RF: 0 Referrals: Rafa Anna MD [Physician] - (Call if symptoms continue) Justin Chapman DO [Primary Care Provider] - Patient Instructions: Chest Pain (ED) Activity Restrictions/Additional Instructions: Continue the diet, medication and activities recommended after your stents. Call Dr. Anna's office if symptoms continue. Return to the ED if new or worse symptoms occur. Discharge Date/Time: 07/11/19 18:07 Coding Level of Care Code ED Patient Care for Chg Fwd Exam Problem Focused The documentation recorded by the Nikole marin Valerie R, accurately reflects the service I personally performed and the decisions made by , Cinthia Newsome MD
--- NOTE | 2019-07-11 14:45 | ECG_ITS ---
Measurements Intervals [place] Rate: 65 P: 37 TN: 152 QRS: 39 QRSD: 93 T: 57 QT: 384 QTc: 402 SINUS RHYTHM POSSIBLE LEFT ATRIAL ENLARGEMENT [-0.1mV P WAVE IN V1/V2] Compared to ECG 03/15/2019 13:02:19 No significant changes Electronically Signed On 07-11-2019 20:41:29 [employer] by Rafa Anna M.D. [id number] f
--- NOTE | 2019-07-11 14:45 | XRR_ITS ---
PROCEDURE INFORMATION: Exam: XR Chest, 1 View Exam date and time: 07/11/2019 3:02 PM Age: 69 years old Clinical indication: Pain; Chest pressure; Prior surgery; Surgery type: RT breast ca/removal; Additional info: Chest pain TECHNIQUE: Imaging protocol: XR of the chest Views: 1 view. COMPARISON: CR Chest 2 views* [id number] 03/15/2019 1:40 PM FINDINGS: Lungs: Nonspecific interstitial thickening. No consolidation. Pleural space: Unremarkable. No pleural effusion. No pneumothorax. Heart/Mediastinum: Unremarkable. No cardiomegaly. Vasculature: Tortuosity of the thoracic aorta. Bones/joints: No acute findings. XR/XR chest 1V portable [id number] IMPRESSION: No acute findings.
[2019-07-11 15:11] LABS: Basophils % 0.8 %; Eosinophils # 0.2 10^3/uL (0.0-0.8); Eosinophils % 3.3 %; Hematocrit 36.9 % (37.0-47.0); Hemoglobin 11.9 g/dL (11.5-15.3); Lymphocytes # 1.1 10^3/uL (0.8-4.8); Lymphocytes % 23.3 %; Mean Corpuscular HGB Conc 32.2 g/dL (30.0-36.0); Mean Corpuscular Hemoglobin 30.6 pg (28.0-34.0); Mean Corpuscular Volume 94.9 fL (81-99); Mean Platelet Volume 9.3 fL (7.4-10.4); Monocytes # 0.4 10^3/uL (0.2-0.9); Monocytes % 8.7 %; Neutrophils # 3.1 10^3/uL (1.8-7.7); Neutrophils % 63.7 %; Nucleated Red Blood Cells % 0 %; Platelet Count 332 10^3/cmm (130-400); Red Blood Count 3.89 10^6/uL (4.1-5.3); Red Cell Distribution Width 13.4 % (12.1-15.1); White Blood Count 4.8 10^3/uL (4.0-10.0)
[2019-07-11 15:18] VITALS: O2SAT 97
[2019-07-11 15:20] LABS: INR 0.98 (0.8-1.2)
[2019-07-11 15:31] LABS: Troponin(5th) Baseline 19.18
[2019-07-11 15:40] LABS: Alanine Aminotransferase 8 U/L (0-33); Albumin Level 4.6 g/dL (3.5-5.2); Alkaline Phosphatase 185 IU/L (35-105); Anion Gap 15.7 (5-19); Aspartate Amino Transferase 17 U/L (0-32); Blood Urea Nitrogen 24 mg/dL (8-23); Calcium 9.6 mg/dL (8.5-10.5); Carbon Dioxide 27 mmol/L (22-29); Chloride 98 mmol/L (98-107); Globulin 2.7 g/dL (1.3-4.6); Glucose 82 mg/dL (65-115); Lipase 43 U/L (13-60); NT Pro B Type Natriuretic Pept 584 pg/mL (0-125); Potassium 4.7 mmol/L (3.5-5.1); Sodium 136 mmol/L (136-145); Total Bilirubin 0.2 mg/dL (0.15-1.2); Total Protein 7.3 g/dL (6.6-8.7)
--- NOTE | 2019-07-11 16:45 | ECG_ITS ---
Measurements Intervals [place] Rate: 65 P: 31 KS: 167 QRS: 23 QRSD: 94 T: 52 QT: 410 QTc: 428 SINUS RHYTHM POSSIBLE LEFT ATRIAL ENLARGEMENT [-0.1mV P WAVE IN V1/V2] Compared to ECG 03/15/2019 13:02:19 No significant changes Electronically Signed On 07-11-2019 20:43:27 SIGN DESIGNER by Rafa Anna M.D. [id number] f
[2019-07-11 17:01] LABS: Troponin 5 2HR 17.03 ng/mL (0-10)
[2019-07-11 17:03] LABS: Add Urine Microscopic? NO
[2019-07-11 17:05] LABS: Bilirubin Urine Neg (NEGATIVE); Blood Urine Neg (Negative); Glucose Urine UA Norm (Normal); Ketones Urine Negative (Negative); Leukocyte Esterase Urine Negative (Negative); Nitrate Urine Negative (Negative); Protein Urine Neg (Negative); Urine Appearance Clear (CLEAR); Urine Color Straw (Yellow); Urobilinogen Urine Norm (Negative); pH Urine 5 (5-7)
[2019-07-11 17:09] LABS: Troponin 5 2HR Delta -1.97 ABS# (0-10)
[2019-07-11 18:05] VITALS: BP 108/52; PULSE 75; RESP 20; O2SAT 94
--- NOTE | 2019-07-12 15:15 | DCPLANNER ---
health safety manager had message to schedule a follow up appointment for patient with [facility]. health safety manager called [facility], spoke with Kelsea, and gave clinic patients information. Kelsea called rehabilitation caseworker back and stated that when clinic called patient to schedule appointment, that patient stated that she did not need to be seen at this time, but if patient felt like she needed to be seen she would call and make an appointment. Patient does have an appointment scheduled in September.
== END 2019-07-11 18:07 | disposition home or self-care (01) ==
PROVIDERS: Emergency Provider Emergency Medicine; Family Provider Electrodiagnostic Medicine; PCP Electrodiagnostic Medicine
DX: R07.9 Chest pain, unspecified (principal); I25.10 Atherosclerotic heart disease of native coronary artery without angina pectoris; Z87.891 Personal history of nicotine dependence; Z95.5 Presence of coronary angioplasty implant and graft
CPT/HCPCS: 36415; 71045; 80053; 81003; 83690; 83880; 84484; 85025; 85610; 93005; 99283; 99284; A9270

== ENCOUNTER 2019-08-06 12:10 | Outpatient (CLI) | payer MEDICARE, SELFPAY ==
--- NOTE | 2019-08-06 12:17 | XR_ITS ---
WS: [id number] THORACIC SPINE TECHNIQUE: 3 views of the thoracic spine CLINICAL INFORMATION: VERTEBRAL FRACTURE, BACK PAIN THORACIC REGION COMPARISON: None. FINDINGS: Osteopenia. Mild thoracic curve. Mild thoracic kyphosis. No acute appearing compression fractures. Di sc space heights vertebral body heights relatively well-preserved. Mild spondylitic changes cervical spine with anterolisthesis C3 on C4. XR/XR thoracic spine 3V* [id number] IMPRESSION: No acute thoracic spine findings
== END 2019-08-06 12:11 | disposition home or self-care (01) ==
LOC: RADWPI 12:14
PROVIDERS: Family Provider Electrodiagnostic Medicine; PCP Electrodiagnostic Medicine; Visit Provider Electrodiagnostic Medicine
DX: M54.6 Pain in thoracic spine (principal)
CPT/HCPCS: 72072

== ENCOUNTER 2019-08-14 13:29 | Observation (INO) | payer MEDICARE, SELFPAY ==
[2019-08-14] VITALS (11 sets, daily range): BP systolic 114–152; BP diastolic 60–87; PULSE 73–85; RESP 16–20; TEMP 36.4–36.9; O2SAT 91–97; BMI 25.7
--- NOTE | 2019-08-14 13:46 | CT_ITS ---
WS: [id number] CT HEAD TECHNIQUE: Noncontrast CT of the head obtained from the skullbase to the vertex. CLINICAL INFORMATION: syncope COMPARISON: January 22, 2017 DLP: 732.[address] scans at [facility] use at least one of these dose optimization techniques: automat ed exposure control; mA and/or kV adjustment per patient size (includes targeted exams where dose is matched to clinical indication); or iterative reconstruction. FINDINGS: No evidence of intracranial hemorrhage or mass effect. Ventricular system and basal cisterns are eugene nt. Mild small vessel changes with mild parenchymal volume loss. No extra-axial fluid collections. No evidence of mass or mass effect. Normal panda-white differentiation. Paranasal sinuses and mastoid air cells are well aerated. .Normal visualized soft tissues. Notified Daren Valdez MD at 08/14/2019 2:[address]/CT head wo con* [id number] IMPRESSION: 1. No evidence of intracranial hemorrhage or mass effect. 2. Mild small vessel changes with mild parenchymal volume loss. 3. No acute intracranial findings.
--- NOTE | 2019-08-14 13:46 | XR_ITS ---
WS: [id number] XR chest 1V portable [id number] REASON FOR EXAM: syncope FINDINGS: Elevation of the left hemidiaphragm. The heart is not enlarged interface with the mediastinum normal. The lung faith are clear there is no pneumonia, pleural effusion, pulmonary edema, pneumothorax, or mass effect. The hilum and apices normal. XR/XR chest 1V portable [id number] IMPRESSION: Negative chest for acute pathology. Elevation of the left hemidiaphragm.
--- NOTE | 2019-08-14 13:48 | ECG_ITS ---
Measurements Intervals [place] Rate: 78 P: 43 IN: 151 QRS: 12 QRSD: 94 T: 53 QT: 378 QTc: 433 SINUS RHYTHM POSSIBLE LEFT ATRIAL ENLARGEMENT [-0.1mV P WAVE IN V1/V2] Compared to ECG 07/11/2019 17:22:58 No significant changes Electronically Signed On 08-15-2019 12:41:31 CDT by Festus Anna [id number]
[2019-08-14 14:01] LABS: Basophils % 0.3 %; Eosinophils % 0.3 %; Hematocrit 37.1 % (37.0-47.0); Hemoglobin 12.2 g/dL (11.5-15.3); Lymphocytes # 0.7 10^3/uL (0.8-4.8); Lymphocytes % 9.4 %; Mean Corpuscular HGB Conc 32.9 g/dL (30.0-36.0); Mean Corpuscular Hemoglobin 30.7 pg (28.0-34.0); Mean Corpuscular Volume 93.5 fL (81-99); Mean Platelet Volume 8.9 fL (7.4-10.4); Monocytes # 0.1 10^3/uL (0.2-0.9); Monocytes % 1.6 %; Neutrophils # 6.6 10^3/uL (1.8-7.7); Neutrophils % 87.5 %; Nucleated Red Blood Cells % 0 %; Platelet Count 324 10^3/cmm (130-400); Red Blood Count 3.97 10^6/uL (4.1-5.3); Red Cell Distribution Width 13.2 % (12.1-15.1); White Blood Count 7.6 10^3/uL (4.0-10.0)
--- NOTE | 2019-08-14 14:01 | W.ED.GENADLT ---
HPI - General Adult General: Chief complaint: General Medical Stated complaint: SYNCOPE Time Seen by Provider: 08/14/19 13:32 Source: patient and EMS Mode of arrival: EMS Limitations: no limitations History of Present Illness: HPI narrative: Karina is a 69-year-old female who states she has had numbness to her right side of the last 5 to 6 days. She states she is also had some weakness and difficulty walking. Patient was at clinic today for a checkup and had a syncopal event where she passed out for 5 minutes. She states she had a mild headache and chest pain before the event. She has no symptoms currently besides the numbness. She states she had multiple syncopal events recently. She did have stents placed 2 months ago. Onset (ago): day(s) Radiation: non-radiation Severity: mild Relieving factors: none Exacerbating factors: none Associated symptoms: Deny chest pain, dyspnea, headache(s), nausea, rash or vomiting Review of Systems Const: Denies: fever, chills, body aches or change in appetite Eyes: Denies: blurry vision or eye discomfort ENMT: Denies: throat pain or dental pain Card: Denies: chest pain Resp: Denies: shortness of breath GI: Denies: abdominal pain, nausea, vomiting or diarrhea : Denies: painful urination Musc: Denies: neck pain or back pain Skin/Breast: Denies: rash Neuro: Reports: numbness in extremities; Denies: headache Psych: Denies: depression Clement/Lymph: Denies: easy bruising All/Imm: Denies: hives PFS ED PFSH: Medical History (Updated 08/14/19 @ 17:44 by Daren Valdez MD) Angina pectoris Status post PCI to diagonal branch. No more angina Aortic stenosis, mild Stable CAD (coronary artery disease), [place] coronary artery Diagonal branch for significant ostial and proximal diagonal lesion. It was treated with 2 overlapping drug-eluting stents HLD (hyperlipidemia) Obesity Primary osteoarthritis of both hips Surgical History (Updated 07/12/19 @ 12:40 by PAWAN Fernández) History of total hip arthroplasty Hx of appendectomy Hx of hysterectomy Hx of right mastectomy Social History Smoking and tobacco status: former smoker Second hand smoke exposure: Yes Alcohol intake: never Physical Exam Const: COMMON NORMALS: no apparent distress, oriented x3 and healthy appearing HENMT: COMMON NORMALS: normocephalic and head/scalp atraumatic HEAD & SCALP: normocephalic and atraumatic Eye: COMMON NORMALS: PERRL and EOMs intact bilaterally PUPIL: Yes PERRL Neck/C-Spine: COMMON NORMALS: full ROM and supple Chest: COMMONS NORMALS: inspection of chest normal and palpation of chest normal Resp: COMMON NORMALS: normal respiratory effort, no retractions, no use of accessory muscles and clear to auscultation bilaterally AUSCULTATION: clear to auscultation bilaterally Cardio: COMMON NORMALS: regular rate, regular rhythm and no murmurs RATE: regular rate RHYTHM: regular rhythm GI: COMMON NORMALS: normal to inspection, nondistended, normoactive bowel sounds, soft to palpation, non-tender and no masses PALPATION: Yes soft Extremity: COMMON NORMALS: normal to inspection and full ROM Neuro: COMMON NORMALS: oriented x3, moves all extremities and no focal motor deficits Psych: COMMON NORMALS: mental status grossly normal, thought process normal and cooperative THOUGHT PROCESS: normal thought process Skin: COMMON NORMALS: no rashes or lesions noted and no wounds GENERAL SKIN EXAM: no rashes or lesions noted Course Vital Signs: Vital signs: Vital Signs Temperature 98.4 F 08/14/19 13:31 Pulse Rate 82 08/14/19 14:12 Respiratory Rate 16 08/14/19 14:12 Blood Pressure 135/74 08/14/19 13:31 Pulse Oximetry 93 08/14/19 14:12 MDM - General Adult MDM Narrative: Medical decision making narrative: Patient presents here with paresthesias that have improved her right side with weakness. She also had a long syncopal event today as well. Her initial lab work and CT had all are normal. Her paresthesias been going on for 5 to 6 days and she is not a candidate for TPA. I spoke to hospitalist and will admit for observation. Lab Data: Labs: Lab Results 08/14/19 08/14/19 08/14/19 Range/Units 13:15 13:15 13:15 WBC 7.6 (4.0-10.0) 10^3/ uL RBC 3.97 L (4.1-5.3) 10^6/u L Hgb 12.2 (11.5-15.3) g/dL Hct 37.1 (37.0-47.0) % MCV 93.5 (81-99) fL MCH 30.7 (28.0-34.0) pg MCHC 32.9 (30.0-36.0) g/dL RDW 13.2 (12.1-15.1) % Plt Count 324 (130-400) 10^3/c mm MPV 8.9 (7.4-10.4) fL Neut % (Auto) 87.5 % Lymph % (Auto) 9.4 % [place] % (Auto) 1.6 % Eos % (Auto) 0.3 % Baso % (Auto) 0.3 % Neut # (Auto) 6.6 (1.8-7.7) 10^3/u L Lymph # (Auto) 0.7 L (0.8-4.8) 10^3/u L [place] # (Auto) 0.1 L (0.2-0.9) 10^3/u L Eos # (Auto) 0.0 (0.0-0.8) 10^3/u L Baso # (Auto) 0.0 (0.0-0.1) 10^3/u L Nucleated RBC % (a uto) 0 % Nucleated RBCs # 0.0 /100WBC PT 13.20 (10.5-13.3) SECO NDS INR 0.97 (0.8-1.2) Sodium 136 (136-145) mmol/L Potassium 4.3 (3.5-5.1) mmol/L Chloride 96 L (98-107) mmol/L Carbon Dioxide 26 (22-29) mmol/L Anion Gap 18.3 (5-19) BUN 17 (8-23) mg/dL Creatinine 1.0 H (0.5-0.9) mg/dL Glucose 139 H (65-115) mg/dL Calculated Osmolal ity 281 L (285-295) mOsm/k g Calcium 8.9 (8.5-10.5) mg/dL Total Bilirubin 0.2 (0.15-1.2) mg/dL AST 18 (0-32) U/L ALT 13 (0-33) U/L Alkaline Phosphata se 157 H (35-105) IU/L Troponin T Baselin e (0-10) ng/mL Troponin T 120 Min [place] (0-10) ng/mL Delta Troponin T (0-10) ABS# Total Protein 7.5 (6.6-8.7) g/dL Albumin 4.2 (3.5-5.2) g/dL Globulin 3.3 (1.3-4.6) g/dL 08/14/19 08/14/19 Range/Units 13:15 15:13 WBC (4.0-10.0) 10^3/ uL RBC (4.1-5.3) 10^6/u L Hgb (11.5-15.3) g/dL Hct (37.0-47.0) % MCV (81-99) fL MCH (28.0-34.0) pg MCHC (30.0-36.0) g/dL RDW (12.1-15.1) % Plt Count (130-400) 10^3/c mm MPV (7.4-10.4) fL Neut % (Auto) % Lymph % (Auto) % [place] % (Auto) % Eos % (Auto) % Baso % (Auto) % Neut # (Auto) (1.8-7.7) 10^3/u L Lymph # (Auto) (0.8-4.8) 10^3/u L [place] # (Auto) (0.2-0.9) 10^3/u L Eos # (Auto) (0.0-0.8) 10^3/u L Baso # (Auto) (0.0-0.1) 10^3/u L Nucleated RBC % (a uto) % Nucleated RBCs # /100WBC PT (10.5-13.3) SECO NDS INR (0.8-1.2) Sodium (136-145) mmol/L Potassium (3.5-5.1) mmol/L Chloride (98-107) mmol/L Carbon Dioxide (22-29) mmol/L Anion Gap (5-19) BUN (8-23) mg/dL Creatinine (0.5-0.9) mg/dL Glucose (65-115) mg/dL Calculated Osmolal ity (285-295) mOsm/k g Calcium (8.5-10.5) mg/dL Total Bilirubin (0.15-1.2) mg/dL AST (0-32) U/L ALT (0-33) U/L Alkaline Phosphata se (35-105) IU/L Troponin T Baselin e 8 (0-10) ng/mL Troponin T 120 Min [place] 7.37 (0-10) ng/mL Delta Troponin T -0.63 L (0-10) ABS# Total Protein (6.6-8.7) g/dL Albumin (3.5-5.2) g/dL Globulin (1.3-4.6) g/dL Imaging Data^: CXR: Radiologist's impression: [place] [address] XRay Report Signed Patient: Karina Leija Unit #: [id number] : 1950 Age/Sex: 69 / F ADM Date: 08/14/19 Loc: ER Room/Bed: Attending Dr: Ordering Provider/Ordering MD: Daren Valdez MD Date of Service: 08/14/19 Procedure(s): XR chest 1V portable 14142 Accession Number(s): [id number] Report Number: [id number] WS: [id number] XR chest 1V portable [id number] REASON FOR EXAM: syncope FINDINGS: Elevation of the left hemidiaphragm. The heart is not enlarged interface with the mediastinum normal. The lung faith are clear there is no pneumonia, pleural effusion, pulmonary edema, pneumothorax, or mass effect. The hilum and apices normal. XR/XR chest 1V portable [id number] IMPRESSION: Negative chest for acute pathology. Elevation of the left hemidiaphragm. CT Head: Attestation: I personally reviewed and interpreted this imaging study as follows: Radiologist's impression: [address] [address] [address] Scan Report Signed Patient: Karina Leija Unit #: [id number] : 1950 Age/Sex: 69 / F ADM Date: 08/14/19 Loc: ER Room/Bed: Attending Dr: Ordering Provider/Ordering MD: Daren Valdez MD Date of Service: 08/14/19 Procedure(s): CT head wo con* [id number] Accession Number(s): [id number] Report Number: [id number] WS: [id number] CT HEAD TECHNIQUE: Noncontrast CT of the head obtained from the skullbase to the vertex. CLINICAL INFORMATION: syncope COMPARISON: January 22, 2017 DLP: 732.[address] scans at [facility] use at least one of these dose optimization techniques: automated exposure control; mA and/or kV adjustment per patient size (includes targeted exams where dose is matched to clinical indication); or iterative reconstruction. FINDINGS: No evidence of intracranial hemorrhage or mass effect. Ventricular system and basal cisterns are patent. Mild small vessel changes with mild parenchymal volume loss. No extra-axial fluid collections. No evidence of mass or mass effect. Normal panda-white differentiation. Paranasal sinuses and mastoid air cells are well aerated. .Normal visualized soft tissues. Notified Daren Valdez MD at 08/14/2019 2:[address]/CT head wo con* [id number] IMPRESSION: 1. No evidence of intracranial hemorrhage or mass effect. 2. Mild small vessel changes with mild parenchymal volume loss. 3. No acute intracranial findings. CT Chest: Attestation: I personally reviewed and interpreted this imaging study as follows: Radiologist's impression: [place] [address] CT Scan Report Signed Patient: Karina Leija Unit #: [id number] : 1950 Age/Sex: 69 / F ADM Date: 08/14/19 Loc: ER Room/Bed: Attending Dr: Ordering Provider/Ordering MD: Daren Valdez MD Date of Service: 08/14/19 Procedure(s): CT abdomen pelvis w con* [id number] Accession Number(s): [id number] Report Number: [id number] PROCEDURE INFORMATION: Exam: CT Abdomen And Pelvis With Contrast Exam date and time: 08/14/2019 4:05 PM Age: 69 years old Clinical indication: Other: Knot under RT ribs; Prior surgery; Surgery date: 6+ months; Surgery type: Appy, hysto, adore hips; Additional info: Pain TECHNIQUE: Imaging protocol: Computed tomography of the abdomen and pelvis with intravenous contrast. Total DLP: 858.34 mGy-cm Radiation optimization: All CT scans at this facility use at least one of these dose optimization techniques: automated exposure control; mA and/or kV adjustment per patient size (includes targeted exams where dose is matched to clinical indication); or iterative reconstruction. 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 No follow-up needed. Bibasilar interseptal and interlobular thickening consistent with senile fibrosis. Heart: Cardiac size upper limits of normal. Liver: Unremarkable. No mass. Gallbladder and bile ducts: Gallbladder without cholelithiasis. No gallbladder wall thickening or pericholecystic fluid. No intra or extrahepatic biliary ectasia. Pancreas: Pancreas unremarkable. No visible pancreatic ductal ectasia. Spleen: Normal. No splenomegaly. Adrenals: Adrenal glands unremarkable. Kidneys and ureters: Kidneys unremarkable. No visible hydronephrosis or hydroureter. No visible nephrolithiasis or ureteral stone. Stomach and bowel: Nonobstructive bowel pattern. No visible evidence of significant diverticulosis coli or evidence acute diverticulitis. Markedly redundant colon. No visible adynamic or reactive ileus. Small hiatal hernia. Heavy fecal residue consistent with constipation. Appendix: Appendix not visualized presumed surgically absent. Intraperitoneal space: No visible free intraperitoneal ascites. No free fluid the pelvis. Vasculature: The abdominal aorta is nonaneurysmal. Moderately advanced arterial sclerotic disease. Lymph nodes: No visible panniculitis/mesenteritis or mesenteric lymphadenitis/lymphadenopathy. No visible retroperitoneal lymphadenopathy. Bladder: Bladder as imaged grossly unremarkable. No visible bladder stone. Reproductive: Status post hysterectomy. Bones/joints: Extensive metal artifact from bilateral hip prostheses limits assessment of the pelvis. No visible rib fracture within the field of view. No visible pathology at the site of ?knot under right ribs?. Rare bone island. Bilateral hip prostheses. Facet arthrosis L3 through S1 bilaterally. No visible osteolytic or osteoblastic destructive process. Soft tissues: Status post right mastectomy. CT/CT abdomen pelvis w con* [id number] IMPRESSION: 1. No visible evidence of acute abdominal or pelvic pathologic process. 2. Constipation. 3. Several non urgent, nonemergent, chronic, and age related findings discussed in text above. EKG Data^: EKG 1: Attestation: I personally reviewed and interpreted this EKG as follows: EKG interpretation date: 08/14/19 EKG interpretation time: 14:15 Interpretation: nsr hr [address] or t wave abnormalities qrs 94 qtc 412 Computer generated interpretation: Chest X-Ray 08/14/19 13:46 IMPRESSION: Negative chest for acute pathology. Elevation of the left hemidiaphragm. Head CT 08/14/19 13:46 IMPRESSION: 1. No evidence of intracranial hemorrhage or mass effect. 2. Mild small vessel changes with mild parenchymal volume loss. 3. No acute intracranial findings. Abdomen/Pelvis CT 08/14/19 15:47 IMPRESSION: 1. No visible evidence of acute abdominal or pelvic pathologic process. 2. Constipation. 3. Several non urgent, nonemergent, chronic, and age related findings discussed in text above. Radiation Dose CTDIVOL = (mGy): DLP = 858.34 (mGy-cm) EKG 2: Attestation: I personally reviewed and interpreted this EKG as follows: EKG interpretation date: 08/14/19 EKG interpretation time: 16:21 Interpretation: nsr hr [address] or t wave abnormalities qrs 89 qtc 418 Computer generated interpretation: Chest X-Ray 08/14/19 13:46 IMPRESSION: Negative chest for acute pathology. Elevation of the left hemidiaphragm. Head CT 08/14/19 13:46 IMPRESSION: 1. No evidence of intracranial hemorrhage or mass effect. 2. Mild small vessel changes with mild parenchymal volume loss. 3. No acute intracranial findings. Abdomen/Pelvis CT 08/14/19 15:47 IMPRESSION: 1. No visible evidence of acute abdominal or pelvic pathologic process. 2. Constipation. 3. Several non urgent, nonemergent, chronic, and age related findings discussed in text above. Radiation Dose CTDIVOL = (mGy): DLP = 858.34 (mGy-cm) Discharge Plan Discharge Patient Disposition: Home, Self-Care Clinical Impression: Paresthesia Syncope Qualifiers: Syncope type: unspecified Qualified Code(s): R55 - Syncope and collapse Condition: Stable Prescriptions: No Action ropinirole [Requip] 5 mg tablet 0.5 mg PO QDAY RF: 0 furosemide 40 mg tablet 40 mg PO BID RF: 0 nitroglycerin 0.4 mg tablet, sublingual 0.4 mg SUBLINGUAL Q5M PRN (Reason: chest pain) Qty: 30 RF: 2 isosorbide mononitrate 60 mg tablet extended release 24 hr 60 mg PO QAM RF: 0 clopidogrel 75 mg tablet 75 mg PO DAILY RF: 0 potassium chloride 20 mEq tablet extended release 10 meq PO DAILY RF: 0 aspirin 81 mg tablet,delayed release (DR/EC) 81 mg PO DAILY RF: 0 magnesium 400 mg PO DAILY RF: 0 simvastatin 20 mg tablet 20 mg PO DAILY RF: 0 docusate sodium [Colace] 100 mg capsule 100 mg PO DAILY RF: 0 meloxicam 15 mg tablet 15 mg PO DAILY RF: 0 levetiracetam 500 mg tablet 500 mg PO BID RF: 0 omeprazole 40 mg capsule,delayed release(DR/EC) 40 mg PO DAILY RF: 0 acetaminophen [Tylenol Extra Strength] 500 mg tablet 1,000 mg PO .prn PRN (Reason: Pain) RF: 0 sucralfate 1 gram Tablet 1 g PO DAILY RF: 0 prednisone 20 mg Tablet 20 mg PO BID RF: 0 tramadol 50 mg Tablet 50 mg PO TID PRN (Reason: Pain) RF: 0 hydrochlorothiazide 12.5 mg Tablet 12.5 mg PO DAILY RF: 0 metoprolol succinate 25 mg capsule,sprinkle,ER 24hr 12.5 mg PO DAILY RF: 0 Referrals: Justin Chapman DO [Primary Care Provider] - Coding Level of Care Code 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
[2019-08-14 14:12] LABS: INR 0.97 (0.8-1.2)
[2019-08-14 14:16] LABS: Troponin(5th) Baseline 8 ng/mL (0-10)
[2019-08-14 14:17] LABS: Alanine Aminotransferase 13 U/L (0-33); Albumin Level 4.2 g/dL (3.5-5.2); Alkaline Phosphatase 157 IU/L (35-105); Anion Gap 18.3 (5-19); Aspartate Amino Transferase 18 U/L (0-32); Blood Urea Nitrogen 17 mg/dL (8-23); Calcium 8.9 mg/dL (8.5-10.5); Carbon Dioxide 26 mmol/L (22-29); Chloride 96 mmol/L (98-107); Globulin 3.3 g/dL (1.3-4.6); Glucose 139 mg/dL (65-115); Osmolality Calculated 281 mOsm/kg (285-295); Potassium 4.3 mmol/L (3.5-5.1); Sodium 136 mmol/L (136-145); Total Bilirubin 0.2 mg/dL (0.15-1.2); Total Protein 7.5 g/dL (6.6-8.7)
[2019-08-14 15:33] LABS: Troponin 5 2HR 7.37 ng/mL (0-10)
[2019-08-14 15:45] LABS: Troponin 5 2HR Delta -0.63 ABS# (0-10)
--- NOTE | 2019-08-14 15:47 | CTR_ITS ---
PROCEDURE INFORMATION: Exam: CT Abdomen And Pelvis With Contrast Exam date and time: 08/14/2019 4:05 PM Age: 69 years old Clinical indication: Other: Knot under RT ribs; Prior surgery; Surgery date: 6+ months; Surgery type: Appy, hysto, adore hips; Additional info: Pain TECHNIQUE: Imaging protocol: Computed tomography of the abdomen and pelvis with intravenous contrast. Total DLP: 858.34 mGy-cm Radiation optimization: All CT scans at this facility use at least one of these dose optimization techniques: automated exposure control; mA and/or kV adjustment per patient size (includes targeted exams where dose is matched to clinical indication); or iterative reconstruction. 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 No follow-up needed. Bibasilar interseptal and interlobular thickening consistent with senile fibrosis. Heart: Cardiac size upper limits of normal. Liver: Unremarkable. No mass. Gallbladder and bile ducts: Gallbladder without cholelithiasis. No gallbladder wall thickening or pericholecystic fluid. No intra or extrahepatic biliary ectasia. Pancreas: Pancreas unremarkable. No visible pancreatic ductal ectasia. Spleen: Normal. No splenomegaly. Adrenals: Adrenal glands unremarkable. Kidneys and ureters: Kidneys unremarkable. No visible hydronephrosis or hydroureter. No visible nephrolithiasis or ureteral stone. Stomach and bowel: Nonobstructive bowel pattern. No visible evidence of significant diverticulosis coli or evidence acute diverticulitis. Markedly redundant colon. No visible adynamic or reactive ileus. Small hiatal hernia. Heavy fecal residue consistent with constipation. Appendix: Appendix not visualized presumed surgically absent. Intraperitoneal space: No visible free intraperitoneal ascites. No free fluid the pelvis. Vasculature: The abdominal aorta is nonaneurysmal. Moderately advanced arterial sclerotic disease. Lymph nodes: No visible panniculitis/mesenteritis or mesenteric lymphadenitis/lymphadenopathy. No visible retroperitoneal lymphadenopathy. Bladder: Bladder as imaged grossly unremarkable. No visible bladder stone. Reproductive: Status post hysterectomy. Bones/joints: Extensive metal artifact from bilateral hip prostheses limits assessment of the pelvis. No visible rib fracture within the field of view. No visible pathology at the site of ?knot under right ribs?. Rare bone island. Bilateral hip prostheses. Facet arthrosis L3 through S1 bilaterally. No visible osteolytic or osteoblastic destructive process. Soft tissues: Status post right mastectomy. CT/CT abdomen pelvis w con* [id number] IMPRESSION: 1. No visible evidence of acute abdominal or pelvic pathologic process. 2. Constipation. 3. Several non urgent, nonemergent, chronic, and age related findings discussed in text above. Radiation Dose CTDIVOL = (mGy): DLP = 858.34 (mGy-cm)
--- NOTE | 2019-08-14 15:48 | ECG_ITS ---
Measurements Intervals [place] Rate: 74 P: 17 NV: 148 QRS: 14 QRSD: 89 T: 49 QT: 391 QTc: 435 SINUS RHYTHM Compared to ECG 07/11/2019 17:22:58 No significant changes Electronically Signed On 08-15-2019 12:46:47 CDT by Festus Anna [email or web address]
[2019-08-14] MEDS: iodixanol 320 mg/mL 100mL Btl IV (16:24)
--- NOTE | 2019-08-14 18:08 | USCV_ITS ---
Karina Leija Age: 69 Gender: F : 1950 Exam Date: 08/14/2019 19:21 Ordering Phys: Maninder Byrd MD Technologist: Elva Henry [place] [facility] [place]NC[place] Risk Factors: Previous Vascular Surgery: Right Brachial BP: / Left Brachial BP: / Right Left Velocity (cm/s) Spectral Plaque Velocity (cm/s) Spectral Plaque Syst/Diast Broadening Syst/Diast Broadening 61.70/ 16.50 Prox CCA 72.90 / 19.20 59.50/ 15.40 Mid CCA 44.90 / 11.40 52.90/ 14.30 Distal CCA 40.60 / 8.60 50.40/ 16.60 Prox ICA 67.70 / 20.00 61.90/ 20.90 Mid ICA 56.30 / 20.00 66.20/ 20.90 Distal ICA 60.10 / 18.30 61.90 ECA 79.90 1.11 ICA/CCA 1.51 Antegrade Vertebral Antegrade 28.30/ 10.10 cm/s 23.10/ 9.60 cm/s Tri Subclavian Tri 73.90 73.80 CONCLUSIONS Right ICA stenosis <50%. Mild atheromatous plaque right carotid bulb/ICA. Left ICA stenosis <50%. Mild atheromatous plaque left carotid bulb/ICA. Normal antegrade Doppler flow noted in the right vertebral artery. Normal antegrade Doppler flow noted in the left vertebral artery. Savage Rodriguez MD (Electronically Signed) Final Date: 15 August 2019 11:57 S
--- NOTE | 2019-08-14 18:08 | USCV_ITS ---
Karina Leija Age: 69 Gender: F : 1950 Exam Date: 08/14/2019 19:09 Ordering Phys: Maninder Byrd MD Technologist: Elva Henry Exam Location: [facility] – [place] Indication: SYNCOPE BP: / HR: 75 Rhythm: Sinus Technical Quality: Adequate MEASUREMENTS (Male / Female) Normal Values 2D ECHO LV Diastolic Diameter PLAX 3.4 cm 4.2 - 5.9 / 3.9 - 5.3 cm LV Systolic Diameter PLAX 2.4 cm LV Chamber Size 3.5 cm IVS Diastolic Thickness 0.8 cm 0.6 - 1.0 / 0.6 - 0.9 cm IVS Systolic Thickness 1.2 cm LVPW Diastolic Thickness 1.6 cm 0.6 - 1.0 / 0.6 - 0.9 cm LVPW Systolic Thickness 1.7 cm RV Chamber Size 1.8 cm LVOT Diameter 2.0 cm LV Ejection Fraction 2D Teich 58.3 % LV Ejection Fraction MOD 2C 76.7 % LV Ejection Fraction 2C AL 77.9 % LA Diameter 4.2 cm LA Width 3.1 cm LA Height 3.6 cm RA Width 3.0 cm RA Height 4.0 cm Aorta at Sinotubular Diameter 3.0 cm M-MODE LV Diastolic Diameter MM 5.1 cm 4.2 - 5.9 / 3.9 - 5.3 cm LV Systolic Diameter MM 3.1 cm LV Ejection Fraction MM Teich 68.2 % IVS Diastolic Thickness MM 0.8 cm 0.6 - 1.0 / 0.6 - 0.9 cm IVS Systolic Thickness MM 1.1 cm LVPW Diastolic Thickness MM 0.6 cm 0.6 - 1.0 / 0.6 - 0.9 cm LVPW Systolic Thickness MM 1.1 cm Aortic Annulus Diameter 3.1 cm LA Ao Ratio MM 1.3 MV E Point Septal Separation 0.5 cm DOPPLER AV Peak Velocity 225.0 cm/s LVOT Peak Velocity 106.0 cm/s AV Area Cont Eq vti 1.9 cm squared AV Area Cont Eq pk 1.5 cm squared MV Area PHT 5.5 cm squared Mitral E to A Ratio 0.8 MV E' Velocity 11.0 cm/s Mitral E to MV E' Ratio 8.8 Mitral E to LV E' Lateral Ratio 8.1 Mitral E to LV E' Septal Ratio 9.8 TR Peak Velocity 313.0 cm/s TR Peak Gradient 39.2 mmHg TR Mean Velocity 202.8 cm/s TR Mean Gradient 17.6 mmHg TR Velocity Time Integral 97.2 cm TV Peak E Velocity 70.0 cm/s Right Atrial Pressure 3.0 mmHg Pulmonary Artery Systolic Pressu 42.2 mmHg PV Peak Velocity 80.0 cm/s RV Acceleration Time 0.2 s RV Ejection Time 0.5 s RV AcT/ET 0.4 FINDINGS Left Ventricle Normal left ventricular size, systolic function and wall thickness, with no regional wall motion abnormalities. Normal left ventricular wall thickness. Normal LV function 65% Right Ventricle The right ventricle is normal in size and function. Right Atrium The right atrium is normal in size. Left Atrium The left atrium is normal in size. Mitral Valve Structurally normal mitral valve without significant stenosis or prolapse. There is trace mitral regurgitation. Aortic Valve There is trace aortic regurgitation. Mild aortic valve calcification. Thickened aortic valve. Mild aortic valve stenosis. ZOYA 1.5 cm2 by continuity equation based on peak velocity. Tricuspid Valve Structurally normal tricuspid valve without significant stenosis or regurgitation. Pulmonary artery systolic pressure is normal. Pulmonic Valve Structurally normal pulmonic valve without significant stenosis. There is no pulmonic regurgitation. Pericardium Normal pericardium without effusion. Aorta Normal ascending aorta dimension. CONCLUSIONS Normal LV size and ejection fraction of 65 %. No gross wall motion abnormalities. No significant wall motion abnormalities. Mild aortic stenosis with trace aortic regurgitation No pericardial effusion Elizabeth Anna MD (Electronically Signed) Final Date: 15 August 2019 09:54 S
--- NOTE | 2019-08-14 18:09 | P.HP_ITS ---
Providers/Chief Complaint Primary Care Provider: Justin Chapman DO Chief Complaint: SYNCOPE History of Present Illness Karina Leija is a 69 year old female with a past medical history of CAD status post stenting to LAD D, recent history of stenting x2 to diagonal branch, hypertension, hyperlipidemia, mild to moderate aortic stenosis, mild aortic insufficiency, history of syncope, history of transient ischemic attacks, history of right-sided breast cancer status post chemo and radiation, chronic kidney disease, chronic venous insufficiency, chronic normocytic anemia, depression, history of seizure disorder who presents to the emergency room due to complaints of right-sided weakness, right-sided numbness, right-sided facial droop, slurring of her speech, right-sided blurry vision, syncopal episode. Patient presents with her sister, who helps in the history taking. Patient states that she lives in [facility], she lives in apartment complex, has nursing help once or twice a week, is quite independent. Of sign ificance her recent medical history, patient had a cardiac catheterization in June [address] Dennis due to chest pain, had stenting x2, overlap, of the diagonal artery. Patient states that last night at 2 AM, she woke up, and she had severe back pain, she got up to the side of the bed, she noticed that the right side of her face, the right arm, the right leg felt numb, numbness and tingling, felt weak, she had blurriness of her right eye. She thought nothing of her symptoms, and stayed in bed for about 30 minutes, then went up to use the bathroom, while getting to the bathroom, she used a wall for ambulation, felt unsteady on her feet, felt that right arm, right leg, the right side of her body, right face felt numb, weak, she felt that she had right facial droop, she used the bathroom without difficulty, got out of the bathroom, went to the living room, and sat in her chair. She stated that she had persistent right-sided weakness, right-sided facial droop, right-sided blurring of her vision, but again thought nothing of her symptoms. She stayed awake between 230 and 1130, stated that her symptoms wax and wane, but she was able to make coffee, watch TV, cleaning around the h ouse, able to meet with her friends, they had no issues in terms of slurring of her speech, no facial droop. When her daughter arrived at 1130, she may be noticed some slurring of her speech, but nothing out of the ordinary, she helped her on the house, they had lunch. Then due to her back pain, they made a appointment with her primary care physician, and they set up for the appointment, she was able to go to the car, she is able to get the car able to walk, but noticing some right-sided weakness, right-sided blurring of her vision, which she said that was probably the the most severe during the last few hours. But no falls, no stumbling. Patient's sister states that a few times when speaking to her over the phone, she is noticed slurring of her speech. This Monday, when she spoke to her sister over the phone, she noticed that she had slurring of her speech, she pleaded with her to come to the hospital, but patient refused. In the emergency room, patient reports that she still has some right-sided numbness, right-sided numbness of her face, she has blurry vision on the right side, no significant weakness, no trouble swallowing. Patient states that she has had transient ischemic attacks in the past, many, last transient ischemic attack was many years ago, she states that she has had this numbness and tingling on the right side of intermittently for the past year, the last significant episode was about a year ago, she did not seek medical attention. Syncopal episode: Patient states that she has had syncopal episodes in the past, last a couple episode she was actually admitted to [facility], she is not sure in terms of the work-up. She actually had syncopal episodes before and after her cardiac catheterization on June 2019. This syncopal episode, happened at her physician's office, in front of her the physician her sister. Patient stated that she felt that she was going to pass out, she felt lightheaded, felt dizzy, no chest pain, no palpitations, no vertigo, no diaphoresis, no sweating, no chest pain. Patient was sitting in the chair, when she passed out, she was caught by her sister, who slowly descended her to the floor, the episode lasted for 4 minutes, patient was not not responding, had a pulse, was breathing appropriately, no shaking, no tremor, no tongue biting, no urinary incontinence, no bowel incontinence, her eyes were closed, the ambulance was called, but after roughly 4 minutes, patient came to consciousness, no post ictal confusion, was answering all questions appropriately, and no significant complaints, was wondering what was happening. I am not sure if they measured a blood sugar. Patient has also been complaining of chest pain, and shortness of breath for the last few months. Patient does have a history of aortic stenosis, since her stent placement, she states that she is been having intermittent episodes substernal chest pain, shortness of breath with minimal exertion, she has not reported any of her symptoms to her physician or her sister. For her back pain, patient stated that about 2 weeks ago, she was reaching for object, which was heavy, she had sudden onset of lumbar pain, and since then she has had lower lumbar pain, states in the lower back, has spinal tenderness, no popping, no clicking, no sciatica, no urinary bowel incontinence, no saddle or perianal anesthesia. Review of Systems Const: Denies: fever, chills, fatigue or malaise Eyes: Reports: change in vision, blurry vision and blind spots ENMT: Denies: throat pain or nasal congestion Card: Reports: chest pain, palpitations and lightheadedness Resp: Reports: shortness of breath; Denies: productive cough, non-productive cough or wheezing GI: Denies: abdominal pain, nausea, vomiting, vomiting blood, diarrhea, constipation, blood in stool or black tarry stool : Denies: flank pain, painful urination or urinary frequency Musc: Denies: neck pain or back pain Skin/Breast: Denies: rash Neuro: Reports: numbness in extremities, weakness in extremities, changes in sensation, difficulty walking, dizziness and slurred speech; Denies: headache or vertigo Psych: Denies: anxiety or depression Endo: Denies: excessive urination or excessive thirst Medications/Allergies Home Medications Medication Instructions Recorded Confirmed Last Taken Type hydrochlorothiazide 12.5 mg PO DAILY 08/14/19 08/14/19 08/14/19 History metoprolol succinate 12.5 mg PO DAILY 08/14/19 08/14/19 08/14/19 History prednisone 20 mg PO BID 08/14/19 08/14/19 08/14/19 History sucralfate 1 g PO DAILY 08/14/19 08/14/19 08/14/19 History tramadol 50 mg PO TID PRN 08/14/19 08/14/19 08/14/19 History Allergies Allergy/AdvReac Type Severity Reaction Status Date / Time No Known Allergies Allergy Verified 07/02/19 10:00 PFSH Acute PFSH: Medical History (Updated 08/14/19 @ 18:36 by Maninder Byrd MD) Angina pectoris Status post PCI to diagonal branch. No more angina Aortic stenosis, mild Stable CAD (coronary artery disease), [place] coronary artery Diagonal branch for significant ostial and proximal diagonal lesion. It was treated with 2 overlapping drug-eluting stents HLD (hyperlipidemia) Obesity Primary osteoarthritis of both hips Surgical History (Updated 07/12/19 @ 12:40 by PAWAN Fernández) History of total hip arthroplasty Hx of appendectomy Hx of hysterectomy Hx of right mastectomy Social History Smoking and tobacco status: former smoker Second hand smoke exposure: Yes Alcohol intake: never Vitals/I&O/Wt Last Vital Signs Temp 98.4 F 08/14/19 13:31 Pulse 82 08/14/19 14:12 Resp 16 08/14/19 14:12 BP 135/74 08/14/19 13:31 Pulse Ox 93 08/14/19 14:12 Weight last 48 hrs Weight 68.039 kg Physical Exam Const: COMMON NORMALS: no apparent distress and oriented x3 GENERAL APPEAR ANCE: cooperative and comfortable HENMT: COMMON NORMALS: normocephalic HEAD & SCALP: normocephalic Eye: COMMON NORMALS: PERRL, EOMs intact bilaterally and no papilledema GENERAL EYE: normal appearance of both eyes PUPIL: Yes PERRL DIRECT OPHTHALMOSCOPY: Yes no papilledema Neck/C-Spine: COMMON NORMALS: full ROM, no lymphadenopathy, no JVD and thyroid normal THYROID: thyroid normal Lymph: LYMPHATIC: no lymphadenopathy noted Resp: COMMON NORMALS: normal respiratory effort, no retractions, no use of accessory muscles and clear to auscultation bilaterally AUSCULTATION: clear to auscultation bilaterally Cardio: COMMON NORMALS: no JVD, regular rate, regular rhythm, S1 normal heart sound, S2 normal heart sound, no gallops and no clicks RATE: regular rate RHYTHM: regular rhythm HEART SOUNDS: S1 normal, S2 normal and murmur continuous and systolic GI: COMMON NORMALS: normal to inspection, nondistended, normoactive bowel sounds, soft to palpation, non-tender and no hepatosplenomegaly PALPATION: Yes soft and Yes no hepatosplenomegaly Extremity: COMMON NORMALS: normal to inspection, full ROM and no pedal edema Neuro: COMMON NORMALS: oriented x3, CN's II-XII intact bilaterally, moves all extremities and no focal motor deficits SENSORIUM/ORIENTATION: Yes alert, Yes oriented to person, Yes oriented to place and Yes oriented to time COORDINATION/BALANCE: [id number] test normal, [id number] test normal and rapid alternating mvmt lower ext normal SPEECH: speech normal MOTOR EXAM: strength 5/5 throughout COORDINATION: [id number] test normal COMATOSE PATIENT: corneal reflex present OTHER: Has right facial droop, mild Has right facial numbness Has right homonymous hemianopsia Psych: COMMON NORMALS: mental status grossly normal, thought process normal and cooperative THOUGHT PROCESS: normal thought process Data : 08/14/19 13:15 08/14/19 13:15 A&P Assessment and plan (1) Left-sided cerebrovascular accident (CVA): -Has right facial numbness, has right facial droop, has right arm numbness hemianopsia -NIH stroke score of 4, greater than 12 hours since admission, not TPA candidate -Patient is on aspirin, Plavix -Patient symptoms along with syncope, sounds a lot like atrial fibrillation causing embolic strokes -No stroke code was called in the emergency room Plan: -Admit to general medical floors, stroke protocol -Bedside swallow eval, cardiac diet -CTA head and neck, carotid ultrasound, cardiac echo -Telemetry monitoring, and highly suspect of atrial fibrillation -Patient is on aspirin, Plavix -High-dose statin, atorvastatin 80 mg -Gentle IV hydration at 75 cc an hour -Allow for permissive hypertension for the next 48 to 72 hours, only treat if systolic blood pressure greater than 220, diastolic blood pressure greater than 120 -Physical therapy, observational therapy, case management consult -A1c, lipid panel -Patient is a full code, Lovenox for DVT prophylaxis Status: Acute Code(s): I63.9 - Cerebral infarction, unspecified (2) Syncope: -Patient has had multiple syncopal episodes -We will do orthostatic vitals tomorrow -Syncopal episodes could be related to atrial fibrillation and or aortic wes nosis -We will repeat echocardiogram to evaluate aortic valve as patient has been having syncope, angina, dyspnea -Continue telemetry monitoring, monitor troponins Status: Acute Code(s): R55 - Syncope and collapse (3) Right homonymous hemianopsia: Status: Acute Code(s): H53.461 - Homonymous bilateral field defects, right side (4) Aortic stenosis, mild: Status: Acute Code(s): I35.0 - Nonrheumatic aortic (valve) stenosis (5) Angina pectoris: Status: Acute Code(s): I20.9 - Angina pectoris, unspecified (6) CAD (coronary artery disease), [place] coronary artery: Status: Acute Qualifiers: [place] vs. transplanted heart: [place] heart Associated angina: angina presence unspecified Qualified Code(s): I25.10 - Atherosclerotic heart disease of [place] coronary artery without angina pectoris Code(s): I25.10 - Atherosclerotic heart disease of [place] coronary artery without angina pectoris (7) History of total hip arthroplasty: Status: Acute Qualifiers: Laterality: bilateral Qualified Code(s): Z96.643 - Presence of artificial hip joint, bilateral Code(s): Z96.649 - Presence of unspecified artificial hip joint (8) Primary osteoarthritis of both hips: Status: Acute Code(s): M16.0 - Bilateral primary osteoarthritis of hip (9) Acute back pain: -Has spinal tenderness -Pain control with morphine -We will do CT lumbar spine Status: Acute Code(s): M54.9 - Dorsalgia, unspecified Attestations Medical Necessity Statement*: Patient has hospitalization, outpatient with observation, for CVA, syncope Coding Level of Care Code Acute [employer] for [facility] Diagnoses Left-sided cerebrovascular accident (CVA) I63.9 Syncope R55 Right homonymous hemianopsia H53.461 Aortic stenosis, mild I35.0 Angina pectoris I20.9 CAD (coronary artery disease), [place] coronary artery I25.10 [place] vs. transplanted heart: [place] heart Associated angina: angina presence unspecified History of total hip arthroplasty Z96.643 Laterality: bilateral Primary osteoarthritis of both hips M16.0 Acute back pain M54.9
--- NOTE | 2019-08-14 19:48 | ECG_ITS ---
Measurements Intervals [place] Rate: 77 P: 50 NV: 164 QRS: 12 QRSD: 92 T: 50 QT: 371 QTc: 422 SINUS RHYTHM Compared to ECG 07/11/2019 17:22:58 No significant changes Electronically Signed On 08-17-2019 14:51:31 CDT by Rebecca Berger M.D. [email or web address]
[2019-08-14 19:59] LABS: Thyroid Stimulating Hormone 2.68 uIU/mL (0.27-4.20)
[2019-08-14] MEDS: ropinirole 1 mg Tablet 0.5 MG PO (21:04)
[2019-08-14] MEDS: sodium chloride 0.9% 1,000 ML 75 ML IV (21:04)
[2019-08-14] MEDS: atorvastatin 40 mg Tablet 80 MG PO (21:05)
[2019-08-14] MEDS: enoxaparin 40 mg/0.4 mL Syringe SUBCUT (21:05)
[2019-08-15 04:00] VITALS: BP 159/76; PULSE 73; RESP 20; TEMP 36.7; O2SAT 96
[2019-08-15 05:32] LABS: Basophils % 0.3 %; Eosinophils % 0.3 %; Hemoglobin 12.7 g/dL (11.5-15.3); Lymphocytes # 1.5 10^3/uL (0.8-4.8); Lymphocytes % 17.3 %; Mean Corpuscular HGB Conc 32.6 g/dL (30.0-36.0); Mean Corpuscular Hemoglobin 30.9 pg (28.0-34.0); Mean Corpuscular Volume 94.9 fL (81-99); Mean Platelet Volume 9.1 fL (7.4-10.4); Monocytes # 0.6 10^3/uL (0.2-0.9); Neutrophils # 6.7 10^3/uL (1.8-7.7); Neutrophils % 74.8 %; Nucleated Red Blood Cells % 0 %; Platelet Count 312 10^3/cmm (130-400); Red Blood Count 4.11 10^6/uL (4.1-5.3); Red Cell Distribution Width 13.3 % (12.1-15.1); White Blood Count 8.9 10^3/uL (4.0-10.0)
[2019-08-15 05:44] LABS: Alanine Aminotransferase 16 U/L (0-33); Albumin Level 4.3 g/dL (3.5-5.2); Alkaline Phosphatase 150 IU/L (35-105); Anion Gap 18.2 (5-19); Blood Urea Nitrogen 18 mg/dL (8-23); Calcium 9.8 mg/dL (8.5-10.5); Carbon Dioxide 24 mmol/L (22-29); Chloride 98 mmol/L (98-107); Creatinine Clr Calc Pharmacy 54.3378; Globulin 2.7 g/dL (1.3-4.6); Glucose 89 mg/dL (65-115); Magnesium 2.7 mg/dL (1.7-2.3); Osmolality Calculated 278 mOsm/kg (285-295); Phosphorus 3.3 mg/dL (2.5-4.5); Potassium 4.2 mmol/L (3.5-5.1); Sodium 136 mmol/L (136-145); Total Bilirubin 0.2 mg/dL (0.15-1.2)
[2019-08-15 05:50] LABS: Estmated Average Glucose 97
[2019-08-15 06:22] LABS: Chol HDL Ratio 4.59 mg/dL (0.0-4.40); Cholesterol 257 mg/dL (0-200); HDL Cholesterol 56 mg/dL (60-100); LDL Cholesterol Calculated 159 mg/dL (50-129); LDL HDL Ratio 2.84 RATIO (0.00-3.22); Triglycerides 209 mg/dL (0-150)
[2019-08-15 06:39] LABS: Aspartate Amino Transferase 22 U/L (0-32)
[2019-08-15 08:00] VITALS: BP 153/73; PULSE 82; RESP 20; TEMP 36.7; O2SAT 98
--- NOTE | 2019-08-15 09:00 | CT_ITS ---
WS: [id number] CTA HEAD AND NECK TECHNIQUE: Contrast enhanced CTA of the head and neck with coronal and sagittal reformatted images an d maximum intensity projection (MIP) images. NASCET criteria utilized. CLINICAL INFORMATION: CVA DLP: 2119.[address] scans at [facility] use at least one of these dose optimization techniques: automat ed exposure control; mA and/or kV adjustment per patient size (includes targeted exams where dose is matched to clinical indication); or iterative reconstruction. FINDINGS: RIGHT: Right common carotid artery is patent. No significant right ICA stenosis. ICA is patent to the skull base. LEFT: Left common carotid artery is patent. Left proximal ICA stenosis with calcified atheromatous di sease measuring approximately 40%. Left ICA is patent to the skull base. INTRACRANIAL CTA: Right dominant vertebral artery. Smaller but patent left vertebral artery. Basilar artery is patent. Normal vascularity to the [employer] territory bilaterally. Cavernous carotid calcification. Normal vascularity to the ANDREZ and MCA territories bilaterally. No ev idence of high-grade proximal stenosis or aneurysm. Dural venous sinuses are patent. Reversal normal cervical lordosis. Mastoid air cells are well aerated. Paranasal sinuses are well aerated. A few secretions in the left maxillary sinus. Fibrosis in the right greater than left lung apices. CT/CT angio headneck* [id number] IMPRESSION: 1. Left proximal ICA stenosis measuring 40%. Left ICA is patent to the skull b ase. 2. No significant right ICA stenosis. 3. Unremarkable intracranial [place] of [place]. 4. Vertebral arteries and proximal basilar artery are patent.
--- NOTE | 2019-08-15 09:00 | CT_ITS ---
WS: [id number] CT LUMBAR SPINE TECHNIQUE: Noncontrast CT of the lumbar spine with coronal and sagittal reformatted images. CLINICAL INFORMATION: back pain COMPARISON: None. DLP: 2216.[address] scans at [facility] use at least one of these dose optimization techniques: automat ed exposure control; mA and/or kV adjustment per patient size (includes targeted exams where dose is matched to clinical indication); or iterative reconstruction. FINDINGS: Mild lumbar curve. No acute compression. No high-grade central canal stenosis. L1-L2: Mild annular bulging. Small central protrusion. Slight effacement of ventral thecal sac. Spina l canal and foramen are patent. L2-L3: Mild annular bulging. Mild facet arthropathy. Spinal canal and foramen are patent. L3-L4: Mild annular bulging with mild central canal stenosis. Moderate facet arthropathy. Mild left a nd no significant right foraminal narrowing. L4-L5: Mild annular bulging. Moderate central canal stenosis. Moderate facet arthropathy. Foramen are patent. L5-S1: Mild annular bulging with slight effacement of ventral thecal sac. Left eccentric disc bulging with mild left and no significant right foraminal narrowing. Moderate facet arthropathy. Ligament fl avum hypertrophy. Visualized pelvic bony structures: Normal. Paravertebral soft tissues: Normal. CT/CT lumbar spine wo con* [id number] IMPRESSION: 1. No acute compression fractures. No high-grade central canal stenosis. 2. Mild central canal stenosis L3-L4 and moderate central canal stenosis L4-5. 3. Tiny central protrusion L1-2 with slight effacement of ventral thecal sac. 4. Mild left L3-4 foraminal narrowing. 5. Left eccentric disc osteophyte complex slightly encroaches on the far exiti ng left L5 nerve root. 6. Moderate facet arthropathy L3-L5.
[2019-08-15] MEDS: iodixanol 320 mg/mL 100mL Btl IV (09:03)
[2019-08-15] MEDS: aspirin 81 mg EC Tablet PO (09:38)
[2019-08-15] MEDS: magnesium oxide 400 mg tablet PO (09:38)
[2019-08-15] MEDS: sucralfate 1 gm Tablet PO (09:38)
[2019-08-15] MEDS: pantoprazole DR 40 mg Tablet PO (09:38)
[2019-08-15] MEDS: docusate sodium 100 mg Capsule PO (09:38)
[2019-08-15] MEDS: atorvastatin 40 mg Tablet 80 MG PO (09:38)
[2019-08-15] MEDS: clopidogrel 75 mg Tablet PO (09:38)
[2019-08-15] MEDS: levETIRAcetam 500 mg Tablet PO (09:38)
[2019-08-15] MEDS: sodium chloride 0.9% 1,000 ML 75 ML IV (11:29)
--- NOTE | 2019-08-15 11:48 | PM.MISC ---
Miscellaneous Note Note: Dr. Byrd called me because this patient is in the hospital with stroke symptoms of facial numbness. She had an episode of loss of consciousness that was observed at her family physician office. It does not sound like it was a seizure. She had a seizure many years ago that was generalized tonic-clonic and has been on Keppra ever since and that has never been reevaluated. Her CT angiogram shows 40% stenosis of the left carotid and her CT scan of the head shows white matter disease on the left. I agreed to see her within several weeks of discharge. I recommended an MRI of the brain and Dr. Byrd plans a event detector.
[2019-08-15 12:00] VITALS: BP 144/71; PULSE 82; RESP 18; TEMP 36.6; O2SAT 98
[2019-08-15 12:19] VITALS: BP 144/71; PULSE 82; RESP 18; TEMP 36.6; O2SAT 98
--- NOTE | 2019-08-15 18:47 | PM.DCS ---
Discharge Providers Date of Admission: 08/14/19 16:49 Date of Discharge: August 15, 2019 Attending Provider at Admission: Maninder Byrd MD Attending Provider at Discharge: Maninder Byrd MD Primary Care Provider: Justin Chapman DO Diagnoses at Discharge Discharge Diagnosis (1) Left-sided cerebrovascular accident (CVA): Status: Acute (2) Syncope: Status: Acute (3) Right homonymous hemianopsia: Status: Acute (4) Aortic stenosis, mild: Status: Acute Problem details: Stable (5) Angina pectoris: Status: Acute Problem details: Status post PCI to diagonal branch. No more angina (6) CAD (coronary artery disease), [place] coronary artery: Status: Acute Problem details: Diagonal branch for significant ostial and proximal diagonal lesion. It was treated with 2 overlapping drug-eluting stents Qualifiers: [place] vs. transplanted heart: [place] heart Associated angina: angina presence unspecified Qualified Code(s): I25.10 - Atherosclerotic heart disease of [place] coronary artery without angina pectoris (7) History of total hip arthroplasty: Status: Acute Qualifiers: Laterality: bilateral Qualified Code(s): Z96.643 - Presence of artificial hip joint, bilateral (8) Primary osteoarthritis of both hips: Status: Acute (9) Acute back pain: Status: Acute Reason for Visit Reason for Visit: Reason For Visit: SYNCOPE Hospital Course Discharge Summary: Karina Leija is a 69 year old female with a past medical history of CAD status post stenting to LAD D, recent history of stenting x2 to diagonal branch, hypertension, hyperlipidemia, mild to moderate aortic stenosis, mild aortic insufficiency, history of syncope, history of transient ischemic attacks, history of right-sided breast cancer status post chemo and radiation, chronic kidney disease, chronic venous insufficiency, chronic normocytic anemia, depression, history of seizure disorder who presents to the emergency room due to complaints of right-sided weakness, right-sided numbness, right-sided facial droop, slurring of her speech, right-sided blurry vision, syncopal episode. Patient presents with her sister, who helps in the history taking. Patient states that she lives in [facility], she lives in apartment complex, has nursing help once or twice a week, is quite independent. Of significance her recent medical history, patient had a cardiac catheterization in June [address] Dennis due to chest pain, had stenting x2, overlap, of the diagonal artery. Patient states that last night at 2 AM, she woke up, and she had severe back pain, she got up to the side of the bed, she noticed that the right side of her face, the right arm, the right leg felt numb, numbness and tingling, felt weak, she had blurriness of her right eye. She thought nothing of her symptoms, and stayed in bed for about 30 minutes, then went up to use the bathroom, while getting to the bathroom, she used a wall for ambulation, felt unsteady on her feet, felt that right arm, right leg, the right side of her body, right face felt numb, weak, she felt that she had right facial droop, she used the bathroom without difficulty, got out of the bathroom, went to the living room, and sat in her chair. She stated that she had persistent right-sided weakness, right-sided facial droop, right-sided blurring of her vision, but again thought nothing of her symptoms. She stayed awake between 230 and 1130, stated that her symptoms wax and wane, but she was able to make coffee, watch TV, cleaning around the house, able to meet with her friends, they had no issues in terms of slurring of her speech, no facial droop. When her daughter arrived at 1130, she may be noticed some slurring of her speech, but nothing out of the ordinary, she helped her on the house, they had lunch. Then due to her back pain, they made a appointment with her primary care physician, and they set up for the appointment, she was able to go to the car, she is able to get the car able to walk, but noticing some right-sided weakness, right-sided blurring of her vision, which she said that was probably the the most severe during the last few hours. But no falls, no stumbling. Patient's sister states that a few times when speaking to her over the phone, she is noticed slurring of her speech. This Monday, when she spoke to her sister over the phone, she noticed that she had slurring of her speech, she pleaded with her to come to the hospital, but patient refused. In the emergency room, patient reports that she still has some right-sided numbness, right-sided numbness of her face, she has blurry vision on the right side, no significant weakness, no trouble swallowing. Patient states that she has had transient ischemic attacks in the past, many, last transient ischemic attack was many years ago, she states that she has had this numbness and tingling on the right side of intermittently for the past year, the last significant episode was about a year ago, she did not seek medical attention. Syncopal episode: Patient states that she has had syncopal episodes in the past, last a couple episode she was actually admitted to [facility], she is not sure in terms of the work-up. She actually had syncopal episodes before and after her cardiac catheterization on June 2019. This syncopal episode, happened at her physician's office, in front of her the physician her sister. Patient stated that she felt that she was going to pass out, she felt lightheaded, felt dizzy, no chest pain, no palpitations, no vertigo, no diaphoresis, no sweating, no chest pain. Patient was sitting in the chair, when she passed out, she was caught by her sister, who slowly descended her to the floor, the episode lasted for 4 minutes, patient was not not responding, had a pulse, was breathing appropriately, no shaking, no tremor, no tongue biting, no urinary incontinence, no bowel incontinence, her eyes were closed, the ambulance was called, but after roughly 4 minutes, patient came to consciousness, no postictal confusion, was answering all questions appropriately, and no significant complaints, was wondering what was happening. I am not sure if they measured a blood sugar. Patient has also been complaining of chest pain, and shortness of breath for the last few months. Patient does have a history of aortic stenosis, since her stent placement, she states that she is been having intermittent episodes substernal chest pain, shortness of breath with minimal exertion, she has not reported any of her symptoms to her physician or her sister. For her back pain, patient stated that about 2 weeks ago, she was reaching for object, which was heavy, she had sudden onset of lumbar pain, and since then she has had lower lumbar pain, states in the lower back, has spinal tenderness, no popping, no clicking, no sciatica, no urinary bowel incontinence, no saddle or perianal anesthesia. Unfortunately no stroke was called in the emergency room, NIH stroke score was 4 during my examination, she had a mild right facial droop, right facial numbness, right homonymous hemianopsia, CT head was negative for intracranial bleed, unfortunately I could not do a CTA of the head and neck on her admission as patient had already received a CT of abdomen with contrast, and radiology advised that there is a high risk of contrast-induced nephropathy with a double doses of contrast in [address] head and neck showed left proximal ICA stenosis measuring 40%, carotid ultrasound showed right EAC stenosis less than 50%, left ICA stenosis less than 50%, echocardiogram showed ejection fraction 65%, no wall motion abnormalities, mild aortic stenosis. Patient's telemetry monitoring, EKG showed no evidence of atrial fibrillation or arrhythmia. Patient was admitted for 24 hours, received IV hydration, allowed for permissive hypertension, had telemetry monitoring, passed her swallow eval, received PT OT. Patient continues have right facial numbness, and right homonymous hemianopsia. Patient was discharged with instructions to hold blood pressure medications, and to allow for permissive hypertension for the next 24 hours, she can reinstitute her blood pressure medications tomorrow, if her systolic blood pressures greater than 220 or diastolic blood pressures greater than 120, she can take her metoprolol 12.5 mg once daily. Unfortunately patient's symptoms occurred on aspirin and Plavix, she was discharged on aspirin and Plavix, and high-dose statin. I did speak to Dr. Duncan about the case, who will kindly see the patient in the next week Patient had episodes of lightheadedness, dizziness, syncope, previous episodes of TIA, such as slurring of her speech, which I highly suspect are atrial fibrillation events, and embolic strokes. Patient was discharged with a 30-day event monitor, with close follow-up with cardiology in 1 month. Patient was advised that if she were to have recurrent syncope episode, strokelike symptoms call 911. For patient's syncopal episode, I highly suspect that this was an atrial fibrillation event, unfortunately no EKG was obtained, could also be related to her aortic stenosis, however echocardiogram only showed mild aortic stenosis. Patient was discharged with a threat monitoring analyst as above. Patient is on seizure medications, for a history of tonic-clonic seizures many years ago, has been on Keppra for many years, no reported seizure-like episode during her syncopal episode. For patient's back pain, CT of the lumbar spine showed . No acute compression fractures. No high-grade central canal stenosis. 2. Mild central canal stenosis L3-L4 and moderate central canal stenosis L4-5. 3. Tiny central protrusion L1-2 with slight effacement of ventral thecal sac. 4. Mild left L3-4 foraminal narrowing. 5. Left eccentric disc osteophyte complex slightly encroaches on the far exiting left L5 nerve root. 6. Moderate facet arthropathy L3-L5. Patient was advised to follow-up with her primary care provider for interventions for her back pain, is already on tramadol. Physical Exam Const: COMMON NORMALS: no apparent distress, oriented x3 and alert GENERAL APPEARANCE: cooperative and comfortable ORIENTATION/CONSCIOUSNESS: Yes oriented to person, Yes oriented to place and Yes oriented to time HENMT: COMMON NORMALS: normocephalic HEAD & SCALP: normocephalic Eye: COMMON NORMALS: PERRL, EOMs intact bilaterally and no papilledema GENERAL EYE: normal appearance of both eyes PUPIL: Yes PERRL DIRECT OPHTHALMOSCOPY: Yes no papilledema Neck/C-Spine: COMMON NORMALS: full ROM, no lymphadenopathy, no JVD and thyroid normal THYROID: thyroid normal Lymph: LYMPHATIC: no lymphadenopathy noted Resp: COMMON NORMALS: normal respiratory effort, no retractions, no use of accessory muscles and clear to auscultation bilaterally AUSCULTATION: clear to auscultation bilaterally Cardio: COMMON NORMALS: no JVD, regular rate, regular rhythm, S1 normal heart sound, S2 normal heart sound, no gallops and no clicks RATE: regular rate RHYTHM: regular rhythm HEART SOUNDS: S1 normal, S2 normal and murmur continuous and systolic GI: COMMON NORMALS: normal to inspection, nondistended, normoactive bowel sounds, soft to palpation, non-tender and no hepatosplenomegaly PALPATION: Yes soft and Yes no hepatosplenomegaly Extremity: COMMON NORMALS: normal to inspection, full ROM and no pedal edema Neuro: COMMON NORMALS: oriented x3, CN's II-XII intact bilaterally, moves all extremities and no focal motor deficits SENSORIUM/ORIENTATION: Yes alert, Yes oriented to person, Yes oriented to place and Yes oriented to time COORDINATION/BALANCE: awcedm-lr-tbls test normal, afte-ve-appl test normal and rapid alternating mvmt lower ext normal SPEECH: speech normal MOTOR EXAM: strength 5/5 throughout COORDINATION: iwjfpc-ez-vvmg test normal, iafo-jp-rzdb test normal and rapid alternating movement LE normal COMATOSE PATIENT: corneal reflex present OTHER: Has right facial numbness Has right homonymous hemianopsia Psych: COMMON NORMALS: mental status grossly normal, thought process normal and cooperative THOUGHT PROCESS: normal thought process Discharge Data Data Completed and Pending: Completed Studies During Hospitalization Category Date Time Status CT abdomen pelvis w con* [id number] Urge nt Cat Scan 08/14/19 15:[address] angio headneck * [id number] Urge nt Cat Scan 08/15/19 09:[address] head wo con* [id number] Urgent Cat Scan 08/14/19 13:[address] lumbar spine w o con* [id number] Urgen t Cat Scan 08/15/19 09:00 Completed XR chest 1V cyndy ble [id number] Urgent Exams 08/14/19 13:46 Completed CV carotid duplex BI* [id number] Urgent Ultrasound 08/14/19 18:08 Completed CV echo complete* [id number] Urgent Ultrasound 08/14/19 18:08 Completed Labs from last 24 hours 08/15/19 08/15/19 08/15/19 04:38 04:38 04:38 WBC RBC Hgb Hct MCV MCH MCHC RDW Plt Count MPV Neut % (Auto) Lymph % (Auto) [place] % (Auto) Eos % (Auto) Baso % (Auto) Neut # (Auto) Lymph # (Auto) [place] # (Auto) Eos # (Auto) Baso # (Auto) Nucleated RBC % (a uto) Nucleated RBCs # Sodium 136 Potassium 4.2 Chloride 98 Carbon Dioxide 24 Anion Gap 18.2 BUN 18 Creatinine 0.9 Glucose 89 Estimat Average Gl ucose 97 Hemoglobin A1c 5.0 Calculated Osmolal ity 278 L Calcium 9.8 Phosphorus 3.3 Magnesium 2.7 H Total Bilirubin 0.2 AST 22 ALT 16 Alkaline Phosphata se 150 H Total Protein 7.0 Albumin 4.3 Globulin 2.7 Triglycerides 209 H Cholesterol 257 H LDL Cholesterol, C alc 159 H HDL Cholesterol 56 L LDL/HDL Ratio 2.84 Cholesterol/HDL Ra chani 4.59 H TSH 08/15/19 08/14/19 04:38 15:13 WBC 8.9 RBC 4.11 Hgb 12.7 Hct 39.0 MCV 94.9 MCH 30.9 MCHC 32.6 RDW 13.3 Plt Count 312 MPV 9.1 Neut % (Auto) 74.8 Lymph % (Auto) 17.3 [place] % (Auto) 7.0 Eos % (Auto) 0.3 Baso % (Auto) 0.3 Neut # (Auto) 6.7 Lymph # (Auto) 1.5 [place] # (Auto) 0.6 Eos # (Auto) 0.0 Baso # (Auto) 0.0 Nucleated RBC % (a uto) 0 Nucleated RBCs # 0.0 Sodium Potassium Chloride Carbon Dioxide Anion Gap BUN Creatinine Glucose Estimat Average Gl ucose Hemoglobin A1c Calculated Osmolal ity Calcium Phosphorus Magnesium Total Bilirubin AST ALT Alkaline Phosphata se Total Protein Albumin Globulin Triglycerides Cholesterol LDL Cholesterol, C alc HDL Cholesterol LDL/HDL Ratio Cholesterol/HDL Ra chani TSH 2.68 Vitals: Last Vital Signs Temp 97.9 F 08/15/19 12:19 Pulse 82 08/15/19 12:19 Resp 18 08/15/19 12:19 BP 144/71 08/15/19 12:19 Pulse Ox 98 08/15/19 12:19 Discharge Plan Discharge Patient Disposition: Home, Self-Care Condition: Stable Prescriptions: New atorvastatin 40 mg Tablet 80 mg PO DAILY 30 Days Qty: 30 RF: 0 Continued ropinirole [Requip] 5 mg tablet 0.5 mg PO QDAY RF: 0 nitroglycerin 0.4 mg tablet, sublingual 0.4 mg SUBLINGUAL Q5M PRN (Reason: chest pain) Qty: 30 RF: 2 clopidogrel 75 mg tablet 75 mg PO DAILY RF: 0 potassium chloride 20 mEq tablet extended release 10 meq PO DAILY RF: 0 aspirin 81 mg tablet,delayed release (DR/EC) 81 mg PO DAILY RF: 0 magnesium 400 mg PO DAILY RF: 0 docusate sodium [Colace] 100 mg capsule 100 mg PO DAILY RF: 0 levetiracetam 500 mg tablet 500 mg PO BID RF: 0 omeprazole 40 mg capsule,delayed release(DR/EC) 40 mg PO DAILY RF: 0 acetaminophen [Tylenol Extra Strength] 500 mg tablet 1,000 mg PO .prn PRN (Reason: Pain) RF: 0 sucralfate 1 gram Tablet 1 g PO DAILY RF: 0 tramadol 50 mg Tablet 50 mg PO TID PRN (Reason: Pain) RF: 0 Held furosemide 40 mg tablet 40 mg PO BID RF: 0 Hold Instructions: Resume on 08/16/19. isosorbide mononitrate 60 mg tablet extended release 24 hr 60 mg PO QAM RF: 0 Hold Instructions: Resume on 08/16/19. hydrochlorothiazide 12.5 mg Tablet 12.5 mg PO DAILY RF: 0 Hold Instructions: Resume on 08/16/19. metoprolol succinate 25 mg capsule,sprinkle,ER 24hr 12.5 mg PO DAILY RF: 0 Hold Instructions: Resume on 08/16/19. Discontinued simvastatin 20 mg tablet 20 mg PO DAILY RF: 0 meloxicam 15 mg tablet 15 mg PO DAILY RF: 0 prednisone 20 mg Tablet 20 mg PO BID RF: 0 Discharge Orders: Discharge Order (Routine); Ordered 08/15/19 Ordered By: Maninder Byrd Other Ambulatory Orders: Complete Blood Count w/Auto (Routine) Timeframe: 1 Week Location: Determined by Patient Ordered By: Maninder Byrd Comprehensive Metabolic Panel (Routine) Timeframe: 1 Week Facility: [facility] - Location: Lab - Main Lab Ordered By: Maninder Byrd MR head wo con* [id number] (Routine) Timeframe: 1 Week Facility: [facility] - Location: Radiology [facility] Ordered By: Maninder Byrd Event Recorder, Cardiac (Routine) Timeframe: 1 Day Facility: [facility] - Location: [facility] Outpatients - Acute Ordered By: Maninder Byrd Referrals: Keara Duncan MD [Physician] - 08/27/19 8:30 am Jason Obrien MD [Physician] - 09/02/19 4:30 pm Rafa Anna MD [Physician] - 09/23/19 2:30 pm Justin Chapman DO [Primary Care Provider] - 08/22/19 10:50 am Discharge Diet: Cardiac Discharge Activity: Resume usual activity Patient Instructions: Atorvastatin (By mouth), Syncope (DC), Ischemic Stroke (GEN), Chronic Hypertension (GEN), Self Care Measures After a Stroke (GEN) Activity Restrictions/Additional Instructions: -Please follow-up with primary care provider next week -Please hold all blood pressure medications until tomorrow, and reinstitute tomorrow -If you have recurrent strokelike symptoms call 911 -Please wear event recorder for the next 30 days -Follow-up with Dr. Duncan in the next few weeks -Follow-up with Dr. Campa in 1 month Discharge Date/Time: 08/15/19 14:06 Discharge Attestations Time Spent in Discharge Care*: less than 30 min Quality Metrics Clinical Quality Measures During this hospital stay, did patient experience: Stroke Contraindication to Antithrombotic: Antithrombotic prescribed Contraindication to Anticoagulation: Overlap treatment not indicated Contraindication to Statin: Statin prescribed Coding Level of Care Code Acute [place] [employer] Specialist for Chg Fwd Diagnoses Left-sided cerebrovascular accident (CVA) I63.9 Syncope R55 Right homonymous hemianopsia H53.461 Aortic stenosis, mild I35.0 Angina pectoris I20.9 CAD (coronary artery disease), [place] coronary artery I25.10 [place] vs. transplanted heart: [place] heart Associated angina: angina presence unspecified History of total hip arthroplasty Z96.643 Laterality: bilateral Primary osteoarthritis of both hips M16.0 Acute back pain M54.9
== END 2019-08-15 14:06 | disposition home or self-care (01) ==
LOC: ER 17:44 → MEDSURG 18:42
PROVIDERS: Admitting Provider Family Medicine; Emergency Provider Emergency Medicine; Family Provider Electrodiagnostic Medicine; PCP Electrodiagnostic Medicine; Visit Provider Family Medicine
DX: I63.9 Cerebral infarction, unspecified (principal); R55 Syncope and collapse; H53.461 Homonymous bilateral field defects, right side; I25.119 Atherosclerotic heart disease of native coronary artery with unspecified angina pectoris; I35.0 Nonrheumatic aortic (valve) stenosis; Z96.649 Presence of unspecified artificial hip joint; Z96.643 Presence of artificial hip joint, bilateral; M16.0 Bilateral primary osteoarthritis of hip; M54.9 Dorsalgia, unspecified; E78.5 Hyperlipidemia, unspecified; E66.9 Obesity, unspecified; Z68.25 Body mass index [BMI] 25.0-25.9, adult; Z87.891 Personal history of nicotine dependence
CPT/HCPCS: 12345; 36415; 70450; 70496; 70498; 71045; 72131; 74177; 80053; 80061; 83036; 83735; 84100; 84443; 84484; 85025; 85610; 93005; 93010; 93306; 93880; 94664; 96372; 97116; 97161; 97165; 99283; G0378; J1650; J7030; Q9967

== ENCOUNTER 2019-08-16 13:20 | Inpatient (IN) | payer MEDICARE, SELFPAY ==
[2019-08-16] VITALS (10 sets, daily range): BP systolic 114–144; BP diastolic 61–71; PULSE 66–84; RESP 16; TEMP 36.8; O2SAT 95–96; BMI 25.7
--- NOTE | 2019-08-16 13:35 | ED_ITS ---
Entered by Carmen Leahy, acting as scribe for HPI - Neuro Symptoms/Deficit General: Chief Complaint: Chest Pain Stated Complaint: numbness rt side Time Seen by Provider: 08/16/19 13:36 Source: patient and family Mode of arrival: ambulatory Limitations: no limitations History of Present Illness: HPI Narrative: 69 yo female presents with numbness and weakness to the R side. pt states she was recently admitted and discharged yesterday for a CVA. pt has had three episodes of syncope in the last 24 hours. She is a very poor historian and spent the first part of her interview saying she has chest pain for 3 days and even pointed to her sternal region as where the pain is. She was worked up for a CVA during her admission and the most significant findi ng was mild internal carotid artery stenosis. Symptoms have been ongoing for 2 days. Onset (ago): day(s) (2 days ago) Timing confirmed by: family member Location: right arm and right leg History of same: No Severity: moderate Quality: weak (R sided) and numb (R side) Relieving factors: none Exacerbating factors: none Context: gradual onset Associated symptoms: Reports chest pain; Deny nausea or vomiting Treatments Prior to Arrival: none Review of Systems General: Reports: 10 or more systems reviewed and unremarkable except in HPI and below Const: Denies: fever, chills or body aches Eyes: Denies: change in vision or blurry vision ENMT: Denies: throat pain, enlarged tonsils, painful swallowing, hoarseness, mouth pain or swelling of lips/tongue Card: Reports: chest pain Resp: Denies: shortness of breath, productive cough or non-productive cough GI: Denies: abdominal pain, nausea or vomiting : Denies: flank pain, difficulty urinating, painful urination, urinary frequency, urinary urgency or urinary hesitancy Musc: Denies: neck pain, back pain or extremity swelling Skin/Breast: Denies: rash, itching or redness Neuro: Reports: numbness in extremities, weakness in extremities and dizziness Endo: Denies: excessive urination, excessive thirst or tired all the time [facility] ED PFSH: Medical History Angina pectoris Status post PCI to diagonal branch. No more angina Aortic stenosis, mild Stable CAD (coronary artery disease), mechoopda coronary artery Diagonal branch for significant ostial and proximal diagonal lesion. It was treated with 2 overlapping drug-eluting stents HLD (hyperlipidemia) Obesity Primary osteoarthritis of both hips Surgical History History of total hip arthroplasty Hx of appendectomy Hx of hysterectomy Hx of right mastectomy Family History Grandmother CAD (coronary artery disease) Hypertension Father CAD (coronary artery disease) Cancer Diabetes Hypertension Lung disease Mother Cancer Dementia Diabetes Hypertension Daughter Chronic kidney disease (CKD) eldest Hypertension Daughter Chronic kidney disease (CKD) third child Sister Hyperlipidemia all sisters Hypertension Lung disease Unknown Suicide maternal aunt-GSW- mid 40s Denies family history of Clotting disorder Psychiatric illness Anesthesia complication Bleeding disorder Family history of premature coronary artery disease Stroke Social History Smoking and tobacco status: former smoker Second hand smoke exposure: Yes Alcohol intake: never Physical Exam Const: COMMON NORMALS: no apparent distress, average body habitus, oriented x3, no limitations, healthy appearing, alert and well nourished HENMT: COMMON NORMALS: normocephalic, head/scalp atraumatic and moist oral mucous membranes HEAD & SCALP: normocephalic and atraumatic Eye: COMMON NORMALS: PERRL, EOMs intact bilaterally, conjunctivae normal and no scleral icterus CONJUNCTIVA: Yes conjunctivae normal PUPIL: Yes PERRL Neck/C-Spine: COMMON NORMALS: full ROM, supple, no meningeal signs, no JVD and no carotid bruits Chest: COMMONS NORMALS: inspection of chest normal and palpation of chest normal Resp: COMMON NORMALS: normal respiratory effort, no retractions, no use of accessory muscles, clear to auscultation bilaterally and percussion normal AUSCULTATION: clear to auscultation bilaterally PERCUSSION: percussion normal Cardio: COMMON NORMALS: no JVD, regular rate, regular rhythm, S1 normal heart sound, S2 normal heart sound, no gallops, no clicks, no murmurs, no rub and peripheral pulses 2+ throughout RATE: regular rate RHYTHM: regular rhythm HEART SOUNDS: S1 normal and S2 normal PERIPHERAL PULSES: pulses 2+ throughout GI: COMMON NORMALS: normal to inspection, nondistended, normoactive bowel sounds, soft to palpation, non-tender, no hepatosplenomegaly, no masses and no bruits PALPATION: Yes soft and Yes no hepatosplenomegaly : COMMON NORMALS: Yes no CVA tenderness BLADDER/KIDNEY EXAM: Yes no CVA tenderness Back/Pelvis: COMMON NORMALS: no CVA tenderness Extremity: COMMON NORMALS: normal to inspection, full ROM, normal capillary refill, no calf tenderness and no pedal edema Neuro: COMMON NORMALS: oriented x3 SENSORIUM/ORIENTATION: Yes alert MENINGEAL SIGNS: Yes no meningeal signs Skin: COMMON NORMALS: no rashes or lesions noted, no wounds, skin turgor normal, no jaundice, no petechiae and no mottling GENERAL SKIN EXAM: no rashes or lesions noted and turgor normal Course Consultations: Consultation #1: Dr. Eddy, hospitalist. She kindly accepted patient to her service Vital Signs: Vital signs: Vital Signs Temperature 98.2 F 08/16/19 13:32 Pulse Rate 66 08/16/19 22:59 Respiratory Rate 16 08/16/19 22:59 Blood Pressure 144/65 08/16/19 22:59 Pulse Oximetry 96 08/16/19 22:59 MDM - Neuro Symptoms/Deficit MDM Narrative: Medical decision making narrative: 69-year-old female patient who presents to the emergency department with right-sided numbness and chest pain. The patient symptoms are nonspecific but she has also had several syncopal episodes. She was admitted 2 days ago and discharged yesterday from this facility for the same symptoms. She had an extensive work-up and yielded unremarkable findings. The patient has an appointment with the neurologist next week. I attempted to discharge this patient home but she felt really unsafe going home by herself. After discussion with hospitalist it was agreed to admit her overnight for observation. The patient had symptomatic orthostatic signs. She felt very lightheaded when she was sitting up for her orthostatic vital signs. Medical Records: Attestation: I reviewed the patient's medical records. Lab Data: Attestation: I reviewed the patient's lab results. Labs: Lab Results 08/16/19 08/16/19 08/16/19 Range/Units 13:58 14:29 14:29 WBC 6.9 (4.0-10.0) 10^3/ uL RBC 4.07 L (4.1-5.3) 10^6/u L Hgb 12.4 (11.5-15.3) g/dL Hct 38.1 (37.0-47.0) % MCV 93.6 (81-99) fL MCH 30.5 (28.0-34.0) pg MCHC 32.5 (30.0-36.0) g/dL RDW 13.5 (12.1-15.1) % Plt Count 318 (130-400) 10^3/c mm MPV 8.9 (7.4-10.4) fL Neut % (Auto) 91.3 % Lymph % (Auto) 6.5 % Hemphill % (Auto) 1.3 % Eos % (Auto) 0.3 % Baso % (Auto) 0.3 % Neut # (Auto) 6.3 (1.8-7.7) 10^3/u L Lymph # (Auto) 0.5 L (0.8-4.8) 10^3/u L Hemphill # (Auto) 0.1 L (0.2-0.9) 10^3/u L Eos # (Auto) 0.0 (0.0-0.8) 10^3/u L Baso # (Auto) 0.0 (0.0-0.1) 10^3/u L Nucleated RBC % (a uto) 0 % Nucleated RBCs # 0.0 /100WBC D-Dimer 1.20 H (0-0.59) ug/mIFE U Sodium (136-145) mmol/L Potassium (3.5-5.1) mmol/L Chloride (98-107) mmol/L Carbon Dioxide (22-29) mmol/L Anion Gap (5-19) BUN (8-23) mg/dL Creatinine (0.5-0.9) mg/dL Glucose (65-115) mg/dL Calculated Osmolal ity (285-295) mOsm/k g Calcium (8.5-10.5) mg/dL Total Bilirubin (0.15-1.2) mg/dL AST (0-32) U/L ALT (0-33) U/L Alkaline Phosphata se (35-105) IU/L Troponin I 6 Hour (0-10) ng/mL Troponin I Hi Sens Del (0-12) ng/L Troponin T Baselin e (0-10) ng/mL Troponin T 120 Min [place] (0-10) ng/mL Delta Troponin T (0-10) ABS# Total Protein (6.6-8.7) g/dL Albumin (3.5-5.2) g/dL Globulin (1.3-4.6) g/dL Urine Color Straw (Yellow) Urine Appearance Clear (CLEAR) Urine pH 5 (5-7) Ur Specific Gravit y 1.005 (1.005-1.030) Urine Protein Neg (Negative) Urine Glucose (UA) Norm (Normal) Urine Ketones Negative (Negative) Urine Blood Neg (Negative) Urine Nitrate Negative (Negative) Urine Bilirubin Neg (NEGATIVE) Urine Urobilinogen Norm (Negative) mg/dL Ur Leukocyte Sinai ase Negative (Negative) 08/16/19 08/16/19 08/16/19 Range/Units 14:29 14:29 16:44 WBC (4.0-10.0) 10^3/ uL RBC (4.1-5.3) 10^6/u L Hgb (11.5-15.3) g/dL Hct (37.0-47.0) % MCV (81-99) fL MCH (28.0-34.0) pg MCHC (30.0-36.0) g/dL RDW (12.1-15.1) % Plt Count (130-400) 10^3/c mm MPV (7.4-10.4) fL Neut % (Auto) % Lymph % (Auto) % Hemphill % (Auto) % Eos % (Auto) % Baso % (Auto) % Neut # (Auto) (1.8-7.7) 10^3/u L Lymph # (Auto) (0.8-4.8) 10^3/u L Hemphill # (Auto) (0.2-0.9) 10^3/u L Eos # (Auto) (0.0-0.8) 10^3/u L Baso # (Auto) (0.0-0.1) 10^3/u L Nucleated RBC % (a uto) % Nucleated RBCs # /100WBC D-Dimer (0-0.59) ug/mIFE U Sodium 138 (136-145) mmol/L Potassium 4.5 (3.5-5.1) mmol/L Chloride 99 (98-107) mmol/L Carbon Dioxide 27 (22-29) mmol/L Anion Gap 16.5 (5-19) BUN 19 (8-23) mg/dL Creatinine 1.2 H (0.5-0.9) mg/dL Glucose 128 H (65-115) mg/dL Calculated Osmolal ity 284 L (285-295) mOsm/k g Calcium 9.2 (8.5-10.5) mg/dL Total Bilirubin 0.3 (0.15-1.2) mg/dL AST 18 (0-32) U/L ALT 15 (0-33) U/L Alkaline Phosphata se 139 H (35-105) IU/L Troponin I 6 Hour (0-10) ng/mL Troponin I Hi Sens Del (0-12) ng/L Troponin T Baselin e 11 H (0-10) ng/mL Troponin T 120 Min [place] 8.68 (0-10) ng/mL Delta Troponin T -2.32 L (0-10) ABS# Total Protein 6.7 (6.6-8.7) g/dL Albumin 4.3 (3.5-5.2) g/dL Globulin 2.4 (1.3-4.6) g/dL Urine Color (Yellow) Urine Appearance (CLEAR) Urine pH (5-7) Ur Specific Gravit y (1.005-1.030) Urine Protein (Negative) Urine Glucose (UA) (Normal) Urine Ketones (Negative) Urine Blood (Negative) Urine Nitrate (Negative) Urine Bilirubin (NEGATIVE) Urine Urobilinogen (Negative) mg/dL Ur Leukocyte Sinai ase (Negative) 08/16/19 Range/Units 20:45 WBC (4.0-10.0) 10^3/ uL RBC (4.1-5.3) 10^6/u L Hgb (11.5-15.3) g/dL Hct (37.0-47.0) % MCV (81-99) fL MCH (28.0-34.0) pg MCHC (30.0-36.0) g/dL RDW (12.1-15.1) % Plt Count (130-400) 10^3/c mm MPV (7.4-10.4) fL Neut % (Auto) % Lymph % (Auto) % Hemphill % (Auto) % Eos % (Auto) % Baso % (Auto) % Neut # (Auto) (1.8-7.7) 10^3/u L Lymph # (Auto) (0.8-4.8) 10^3/u L Hemphill # (Auto) (0.2-0.9) 10^3/u L Eos # (Auto) (0.0-0.8) 10^3/u L Baso # (Auto) (0.0-0.1) 10^3/u L Nucleated RBC % (a uto) % Nucleated RBCs # /100WBC D-Dimer (0-0.59) ug/mIFE U Sodium (136-145) mmol/L Potassium (3.5-5.1) mmol/L Chloride (98-107) mmol/L Carbon Dioxide (22-29) mmol/L Anion Gap (5-19) BUN (8-23) mg/dL Creatinine (0.5-0.9) mg/dL Glucose (65-115) mg/dL Calculated Osmolal ity (285-295) mOsm/k g Calcium (8.5-10.5) mg/dL Total Bilirubin (0.15-1.2) mg/dL AST (0-32) U/L ALT (0-33) U/L Alkaline Phosphata se (35-105) IU/L Troponin I 6 Hour 7.68 (0-10) ng/mL Troponin I Hi Sens Del -3.32 L (0-12) ng/L Troponin T Baselin e (0-10) ng/mL Troponin T 120 Min [place] (0-10) ng/mL Delta Troponin T (0-10) ABS# Total Protein (6.6-8.7) g/dL Albumin (3.5-5.2) g/dL Globulin (1.3-4.6) g/dL Urine Color (Yellow) Urine Appearance (CLEAR) Urine pH (5-7) Ur Specific Gravit y (1.005-1.030) Urine Protein (Negative) Urine Glucose (UA) (Normal) Urine Ketones (Negative) Urine Blood (Negative) Urine Nitrate (Negative) Urine Bilirubin (NEGATIVE) Urine Urobilinogen (Negative) mg/dL Ur Leukocyte Sinai ase (Negative) Imaging Data^: CXR: Radiologist's impression: [place] [address] XRay Report Signed Patient: Karina Leija #: [id number] : 1950cct#:[id number] Age/Sex: 69 / FADM Date: 08/16/19 Loc: ERRoom/Bed: Attending Dr: Ordering Provider/Ordering MD: Azam Godinez MD, [facility] Date of Service: 08/16/19 Procedure(s): XR chest 1V portable [id number] Accession Number(s): [id number] Report Number: [id number] WS: [id number] XR chest 1V portable [id number] REASON FOR EXAM: weakness FINDINGS: The cardiac silhouette is not enlarged. The lung faith are well aerated. There is no pneumonia, pleural effusion, pulmonary edema, mass effect, or pneumothorax. A monitor is seen across the chest wall. Line the hilum and apices normal. No osseous abnormalities. XR/XR chest 1V portable [id number] IMPRESSION: Negative chest for acute findings. Dictated By:Mumtaz Hutchison DO Signed By:Mumtaz Hutchison DOSigned Date/Time:08/16/[address] Head: Radiologist's impression: [place] [address] CT Scan Report Signed Patient: Karina Leija #: [id number] : 8Acct#:[id number] Age/Sex: 69 / FADM Date: 08/16/19 Loc: ERRoom/Bed: Attending Dr: Ordering Provider/Ordering MD: Azam Godinez MD, [facility] Date of Service: 08/16/19 Procedure(s): CT head wo con* [id number] Accession Number(s): [id number] Report Number: [id number] PROCEDURE INFORMATION: Exam: CT Head Without Contrast Exam date and time: 08/16/2019 1:51 PM Age: 69 years old Clinical indication: Syncope and collapse; Patient HX: Multiple syncopal episodes. C/O right side weakness. ; Additional info: Weakness, syncope TECHNIQUE: Imaging protocol: Computed tomography of the head without contrast. Total DLP: 721.07 mGy-cm Radiation optimization: All CT scans at this facility use at least one of these dose optimization techniques: automated exposure control; mA and/or kV adjustment per patient size (includes targeted exams where dose is matched to clinical indication); or iterative reconstruction. COMPARISON: CT head wo con* [id number] 08/14/2019 2:29 PM, CT head wo con* [id number] 01/22/2017 6:04:34 PM FINDINGS: Brain: There is no acute intracranial hemorrhage. No extra-axial fluid collection. No evidence of acute infarct. Church white differentiation is intact. There is no evidence of mass. There is no mass effect or midline shift. Ventricles: No ventriculomegaly. Bones/joints: No acute skull fracture. Small skull lucencies are stable, compared to 01/22/2017. Occipital lucency likely arachnoid granulation. Sinuses: Unremarkable as visualized. No acute sinusitis. Mastoid air cells: No significant mastoid effusion. Soft tissues: Unremarkable as visualized. CT/CT head wo con* [id number] IMPRESSION: No evidence of acute intracranial abnormality. Radiation Dose CTDIVOL = (mGy): DLP = 721.07 (mGy-cm) Dictated By:Kassidy Diaz MD Signed By:Kassidy Diaz MDSigned Date/Time:08/16/19 1429 EKG Data^: EKG 1: Attestation: I personally reviewed and interpreted this EKG as follows: EKG interpretation date: 08/16/19 EKG interpretation time: 13:36 Prior EKG tracings: not available for review Interpretation: Normal sinus rhythm. Heart rate [address] changes. Normal axis EKG 2: Attestation: I personally reviewed and interpreted this EKG as follows: EKG interpretation date: 08/16/19 EKG interpretation time: 15:36 Prior EKG tracings: available for review Interpretation: Unchanged from earlier today EKG 3: Attestation: I personally reviewed and interpreted this EKG as follows: EKG interpretation date: 08/16/19 EKG interpretation time: 20:03 Prior EKG tracings: available for review Interpretation: Unchanged from earlier today Discharge Plan Discharge Patient Disposition: Placed in Observation Clinical Impression: Syncope Qualifiers: Syncope type: unspecified Qualified Code(s): R55 - Syncope and collapse Coding Level of Care Code 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
--- NOTE | 2019-08-16 13:48 | ECG_ITS ---
Measurements Intervals [place] Rate: 82 P: 19 VT: 151 QRS: 8 QRSD: 101 T: 56 QT: 357 QTc: 417 SINUS RHYTHM POSSIBLE LEFT ATRIAL ENLARGEMENT [-0.1mV P WAVE IN V1/V2] Compared to ECG 08/14/2019 15:48:14 No significant changes Electronically Signed On 08-17-2019 8:03:52 CDT by Festus Anna [id number] f
--- NOTE | 2019-08-16 13:48 | XR_ITS ---
WS: [id number] XR chest 1V portable [id number] REASON FOR EXAM: weakness FINDINGS: The cardiac silhouette is not enlarged. The lung faith are well aerated. There is no pneumonia, pleural effusion, pulmonary edema, mass effe ct, or pneumothorax. A monitor is seen across the chest wall. Line the hilum and apices normal. No osseous abnormalities. XR/XR chest 1V portable [id number] IMPRESSION: Negative chest for acute findings.
--- NOTE | 2019-08-16 13:48 | CTR_ITS ---
PROCEDURE INFORMATION: Exam: CT Head Without Contrast Exam date and time: 08/16/2019 1:51 PM Age: 69 years old Clinical indication: Syncope and collapse; Patient HX: Multiple syncopal episodes. C/O right side weakness. ; Additional info: Weakness, syncope TECHNIQUE: Imaging protocol: Computed tomography of the head without contrast. Total DLP: 721.07 mGy-cm Radiation optimization: All CT scans at this facility use at least one of these dose optimization techniques: automated exposure control; mA and/or kV adjustment per patient size (includes targeted exams where dose is matched to clinical indication); or iterative reconstruction. COMPARISON: CT head wo con* [id number] 08/14/2019 2:29 PM, CT head wo con* [id number] 01/22/2017 6:04:34 PM FINDINGS: Brain: There is no acute intracranial hemorrhage. No extra-axial fluid collection. No evidence of acute infarct. Church white differentiation is intact. There is no evidence of mass. There is no mass effect or midline shift. Ventricles: No ventriculomegaly. Bones/joints: No acute skull fracture. Small skull lucencies are stable, compared to 01/22/2017. Occipital lucency likely arachnoid granulation. Sinuses: Unremarkable as visualized. No acute sinusitis. Mastoid air cells: No significant mastoid effusion. Soft tissues: Unremarkable as visualized. CT/CT head wo con* [id number] IMPRESSION: No evidence of acute intracranial abnormality. Radiation Dose CTDIVOL = (mGy): DLP = 721.07 (mGy-cm)
[2019-08-16 14:05] LABS: Add Urine Microscopic? NO
[2019-08-16 14:09] LABS: Bilirubin Urine Neg (NEGATIVE); Blood Urine Neg (Negative); Glucose Urine UA Norm (Normal); Ketones Urine Negative (Negative); Leukocyte Esterase Urine Negative (Negative); Nitrate Urine Negative (Negative); Protein Urine Neg (Negative); Specific Gravity, Urine 1.005 (1.005-1.030); Urine Appearance Clear (CLEAR); Urine Color Straw (Yellow); Urobilinogen Urine Norm (Negative); pH Urine 5 (5-7)
[2019-08-16 14:42] LABS: Basophils % 0.3 %; Eosinophils % 0.3 %; Hematocrit 38.1 % (37.0-47.0); Hemoglobin 12.4 g/dL (11.5-15.3); Lymphocytes # 0.5 10^3/uL (0.8-4.8); Lymphocytes % 6.5 %; Mean Corpuscular HGB Conc 32.5 g/dL (30.0-36.0); Mean Corpuscular Hemoglobin 30.5 pg (28.0-34.0); Mean Corpuscular Volume 93.6 fL (81-99); Mean Platelet Volume 8.9 fL (7.4-10.4); Monocytes # 0.1 10^3/uL (0.2-0.9); Monocytes % 1.3 %; Neutrophils # 6.3 10^3/uL (1.8-7.7); Neutrophils % 91.3 %; Nucleated Red Blood Cells % 0 %; Platelet Count 318 10^3/cmm (130-400); Red Blood Count 4.07 10^6/uL (4.1-5.3); Red Cell Distribution Width 13.5 % (12.1-15.1); White Blood Count 6.9 10^3/uL (4.0-10.0)
--- NOTE | 2019-08-16 14:50 | PC.NURSE ---
Pt unable to stand without dizziness and tunnel vision.
[2019-08-16 14:59] LABS: Alanine Aminotransferase 15 U/L (0-33); Albumin Level 4.3 g/dL (3.5-5.2); Alkaline Phosphatase 139 IU/L (35-105); Anion Gap 16.5 (5-19); Aspartate Amino Transferase 18 U/L (0-32); Blood Urea Nitrogen 19 mg/dL (8-23); Calcium 9.2 mg/dL (8.5-10.5); Carbon Dioxide 27 mmol/L (22-29); Chloride 99 mmol/L (98-107); Globulin 2.4 g/dL (1.3-4.6); Glucose 128 mg/dL (65-115); Osmolality Calculated 284 mOsm/kg (285-295); Potassium 4.5 mmol/L (3.5-5.1); Sodium 138 mmol/L (136-145); Total Bilirubin 0.3 mg/dL (0.15-1.2); Total Protein 6.7 g/dL (6.6-8.7)
[2019-08-16 15:01] LABS: Troponin(5th) Baseline 11 ng/mL (0-10)
--- NOTE | 2019-08-16 15:48 | ECG_ITS ---
Measurements Intervals [place] Rate: 75 P: 32 NH: 152 QRS: 4 QRSD: 102 T: 57 QT: 379 QTc: 423 SINUS RHYTHM POSSIBLE LEFT ATRIAL ENLARGEMENT [-0.1mV P WAVE IN V1/V2] Compared to ECG 08/14/2019 15:48:14 No significant changes Electronically Signed On 08-17-2019 8:10:55 CDT by Festus Anna [id number] f
[2019-08-16] MEDS: sodium chloride 0.9% 1,000 ML 999 ML IV (16:08)
[2019-08-16 17:05] LABS: Troponin 5 2HR 8.68 ng/mL (0-10)
--- NOTE | 2019-08-16 17:07 | CTR_ITS ---
PROCEDURE INFORMATION: Exam: CT Angiography Chest With Contrast Exam date and time: 08/16/2019 5:08 PM Age: 69 years old Clinical indication: Shortness of breath; Prior surgery; Surgery date: <1 month; Surgery type: Monitor; Patient HX: C/O SOB TECHNIQUE: Imaging protocol: Computed tomographic angiography of the chest with intravenous contrast. 3D rendering: MIP and/or 3D reconstructed images were created by the technologist. Total DLP: 496.29 mGy-cm Radiation optimization: All CT scans at this facility use at least one of these dose optimization techniques: automated exposure control; mA and/or kV adjustment per patient size (includes targeted exams where dose is matched to clinical indication); or iterative reconstruction. Contrast material: VISI 320; Contrast volume: 95 ml; Contrast route: 20G; COMPARISON: CTA Chest-Pulmonary Emb [id number] 08/31/2017 10:44 PM FINDINGS: Pulmonary arteries: There is no evidence of filling defects within the pulmonary arterial circulation to suggest pulmonary embolism. Aorta: Unremarkable. No aortic aneurysm. No aortic dissection. Lungs: There is mild dependent density in the lungs in keeping with atelectasis. Pleural space: There is mild apical pleural thickening on the right. Heart: There is moderate cardiomegaly. There is moderate atherosclerotic calcification of the coronary arteries. Intraperitoneal space: There is mild thickening of the interlobular septa which is suggestive of fluid overload or congestive failure. Lymph nodes: There are some calcified granulomas in the right middle lobe and some calcified mediastinal lymph nodes in keeping with old granulomatous disease. Bones/joints: Unremarkable. No acute fracture. Soft tissues: Unremarkable. CT/CT angio chest PE protcl [id number] IMPRESSION: 1. Findings suggesting mild CHF. 2. No evidence of pulmonary embolism. 3. Coronary artery disease Radiation Dose CTDIVOL = (mGy): DLP = 496.29 (mGy-cm)
[2019-08-16 17:11] LABS: Troponin 5 2HR Delta -2.32 ABS# (0-10)
--- NOTE | 2019-08-16 17:31 | PC.NURSE ---
Pt returned from CT
[2019-08-16] MEDS: iodixanol 320 mg/mL 100mL Btl IV (17:36)
--- NOTE | 2019-08-16 19:48 | ECG_ITS ---
Measurements Intervals [place] Rate: 71 P: 38 MO: 146 QRS: 42 QRSD: 97 T: 77 QT: 404 QTc: 439 SINUS RHYTHM INCOMPLETE RIGHT BUNDLE BRANCH BLOCK [90+ ms QRS DURATION, TERMINAL R IN V1/V2, 40 40 40 40+ ms S IN I/aVL/V4/V5/V6] Compared to ECG 08/14/2019 15:48:14 Incomplete right bundle-branch block now present Electronically Signed On 08-17-2019 8:10:37 CDT by Festus Anna [id number]
[2019-08-16 21:26] LABS: Troponin 5 6HR 7.68 ng/mL (0-10)
[2019-08-16 21:34] LABS: Troponin 5 6HR Delta -3.32 ng/L (0-12)
--- NOTE | 2019-08-16 22:38 | P.HP_ITS ---
Providers/Chief Complaint Admitting Physician: Swati Eddy MD Primary Care Provider: Justin Chapman DO Chief Complaint: numbness rt side History of Present Illness Karina Leija is a 69 year old female with a past medical history of CAD status post stenting to LAD D, recent history of stenting x2 to diagonal branch, hypertension, hyperlipidemia, mild to moderate aortic stenosis, mild aortic insufficiency, history of syncope, history of transient ischemic attacks, history of right-sided breast cancer status post chemo and radiation, chronic kidney disease, chronic venous insufficiency, chronic normocytic anemia, depression, history of seizure disorder who presents to the emergency room due to 3 episodes of witnessed syncope today. She as recently admitted for R sided w eakness and numbness and discharged on 08/14 with a holter monitor and advise to hold her BP medications. For details, please see discharge summary from 08/[address] Byrd. She returns with 3 episodes of witnessed syncope today while sitting. Holter monitor report from 08/14 shows sinus rhythm. No c/o chest pain/dyspnea. C/o palpitations. She did not stop her BP medications as instructed stating she did not understand the discharge instrcutions. Review of Systems General: Reports: 10 or more systems reviewed and unremarkable except in HPI and below Const: Denies: fever, chills or body aches Eyes: Denies: change in vision, blurry vision or photophobia ENMT: Reports: hoarseness; Denies: throat pain, enlarged tonsils, painful swallowing or nasal congestion Card: Denies: chest pain, palpitations, irregular heart rhythm, edema, swell ing of feet/ankles, lightheadedness, pre-syncope, shortness of breath on exertion or shortness of breath when lying down Resp: Denies: shortness of breath, productive cough, non-productive cough, wheezing, stridor, pain on inspiration, change in phlegm color, coughing up blood or chest congestion GI: Denies: abdominal pain, nausea, vomiting, vomiting blood, coffee grounds in vomit, difficulty swallowing, heartburn/indigestion, diarrhea, constipation, cramping, change in stool character, blood in stool or black tarry stool : Denies: flank pain, difficulty urinating, painful urination, urinary frequency, urinary urgency, urinary hesitancy or blood in urine Musc: Denies: neck pain, back pain, extremity pain, joint swelling, joint warmth or deformity Neuro: Reports: dizziness; Denies: headache, numbness in extremities, weakness in extremities, changes in sensation, difficulty walking, frequent falls, vertigo, behavioral changes, slurred speech or seizure-like activity Psych: Denies: anxiety, depression, suicidal ideation or homicidal ideation Endo: Denies: excessive urination, excessive thirst, tired all the time, cold intolerance or hot flashes Clement/Lymph: Denies: easy bruising or easy bleeding Medications/Allergies Home Medications Medication Instructions Recorded Confirmed Last Taken Type ferrous sulfate 325 mg PO DAILY 08/16/19 08/16/19 08/16/19 History furosemide [Lasix] 40 mg PO BID 08/16/19 08/16/19 08/16/19 History hydrochlorothiazide 12.5 mg PO DAILY 08/16/19 08/16/19 08/16/19 History isosorbide mononitrate 60 mg PO DAILY 08/16/19 08/16/19 08/16/19 History meloxicam 15 mg PO DAILY 08/16/19 08/16/19 08/16/19 History metoprolol succinate 12.5 mg PO DAILY 08/16/19 08/16/19 08/16/19 History sertraline 25 mg PO DAILY 08/16/19 08/16/19 08/16/19 History Allergies Allergy/AdvReac Type Severity Reaction Status Date / Time No Known Allergies Allergy Verified 07/02/19 10:00 PFSH Acute PFSH: Medical History Angina pectoris Status post PCI to diagonal branch. No more angina Aortic stenosis, mild Stable CAD (coronary artery disease), [place] coronary artery Diagonal branch for significant ostial and proximal diagonal lesion. It was treated with 2 overlapping drug-eluting stents HLD (hyperlipidemia) Obesity Primary osteoarthritis of both hips Surgical History History of total hip arthroplasty Hx of appendectomy Hx of hysterectomy Hx of right mastectomy Family History Grandmother CAD (coronary artery disease) Hypertension Father CAD (coronary artery disease) Cancer Diabetes Hypertension Lung disease Mother Cancer Dementia Diabetes Hypertension Daughter Chronic kidney disease (CKD) eldest Hypertension Daughter Chronic kidney disease (CKD) third child Sister Hyperlipidemia all sisters Hypertension Lung disease Unknown Suicide maternal aunt-GSW- mid 40s Denies family history of Clotting disorder Psychiatric illness Anesthesia complication Bleeding disorder Family history of premature coronary artery disease Stroke Social History Smoking and tobacco status: former smoker Second hand smoke exposure: Yes Alcohol intake: never Vitals/I&O/Wt Last Vital Signs Temp 98.2 F 08/16/19 13:32 Pulse 78 08/16/19 21:00 Resp 16 08/16/19 21:00 BP 114/63 08/16/19 21:00 Pulse Ox 95 08/16/19 20:00 Weight last 48 hrs Weight 68.039 kg Physical Exam Narrative: EXAM NARRATIVE: GEN: Awake, alert and oriented, no acute distress CVS: S1S2 N RS: CTA B/L except crackles over RUL Abd: Soft, nt/nd , bs+ SUSTAINABILITY PURCHASING AGENT: no focal neuro deficits Data : 08/16/19 14:29 08/16/19 14:29 A&P Assessment and plan (1) Syncope: Status: Acute Code(s): R55 - Syncope and collapse Additional A&P Information Observe in med/surg on telemetry I discussed extensively with the patient that she recently had an extensive work up for syncope without any gross abnormalities detected. On attempting to sit and principal research economist the ER patient was c/o dizziness to the point orthostatsic could not be measured. Suspect orthostatic hypotension. there are no acute St-t changes. troponins are with negative deltas. Electrolytes are WNL No fever. I discussed with the patient the option of going home and stopping BP medications and keeping her discharge plan since there does not appear to be any acutely worsened symptoms at this present time, however paient and family is extremely scared to return home and would wish to stay in the hospital to monitor overnight. 1. Recent CVA : continue ASA, Plavix 2.. HTN: Hold antihypertensives for now Contiue telemtery monitoring Mid aortic stenosis h/o CAD Full code Dvt ppx: Scd Attestations Medical Necessity Statement*: under observation, less than 2 midnight for above Coding Level of Care Code Acute Director Of Litigation for [facility] Fwd Diagnoses Syncope R55
[2019-08-17] VITALS (8 sets, daily range): BP systolic 110–161; BP diastolic 61–83; PULSE 60–79; RESP 16–18; TEMP 36.4–36.8; O2SAT 93–99
[2019-08-17] MEDS: sodium chloride 0.9% 1,000 ML 75 ML IV ×2 (02:25→16:08)
[2019-08-17] MEDS: docusate sodium 100 mg Capsule PO (10:00)
[2019-08-17] MEDS: clopidogrel 75 mg Tablet PO (10:00)
[2019-08-17] MEDS: magnesium oxide 400 mg tablet PO (10:00)
[2019-08-17] MEDS: pantoprazole DR 40 mg Tablet PO (10:00)
[2019-08-17] MEDS: sertraline 50 mg Tablet 25 MG PO (10:00)
[2019-08-17] MEDS: levETIRAcetam 500 mg Tablet 1000 MG PO (10:00)
[2019-08-17] MEDS: atorvastatin 40 mg Tablet 80 MG PO (10:00)
[2019-08-17] MEDS: sucralfate 1 gm Tablet PO (10:00)
[2019-08-17] MEDS: aspirin 81 mg EC Tablet PO (10:05)
--- NOTE | 2019-08-17 15:17 | PC.CHAP ---
Pastoral Care Encounter/Spiritual Assessment Type of Contact [] Declined pulper operator visit [] Patient/Family/Request visit [] Outpatient visit [] Follow-up visit [] Physician referral [] Code/Alert [X] Routine visit [] Staff referral [] Actively dying [] Patient sleeping [] Family support [] [] Out of room [] Palliative care [] [] Receiving care in room [] Pre-surgical visit [] Trauma [] Long length of stay [] ICU visit [] Other: Relational/Emotional Strength [] Patient feels connected with others/family/visitors/staff [] Distress [] Loneliness/isolation [] Abandonment Spirituality of Patient [] Person of Sarah [] Attends Episcopalian of their Sarah [] Believes in Prayer [] Reads Bible or Muslim materials [] There are Spiritual issues to be addressed Computer Security Specialist Interventions [] Prayer [] Active listening [] Non-anxious presence [] Spiritual/emotional support [] Crisis/trauma care [] Spiritual counseling [] Bereavement support [] Provided bereavement packet [] Provided Bible/devotional materials [] Provided toy/stuffed animal, coloring book to patient or family member [] Provided Communion [] Anointing/[place] [] Salvation [] Completed spiritual assessment [] Other: Impact on Illness or Injury [] Angry [] Fearful [] Anxious [] Often cries [] Exhaustion [] Unable to work [] Unable to attend yarsani [] Unable to walk/stand [] Unable to read [] Unable to drive [] Unable to eat/drink [] Unable to sleep [] Unable to be with family [] Patient intubated [] Other: Summary Time spent with patient
--- NOTE | 2019-08-17 15:46 | PM.PN ---
Subjective Subjective: Interval history: Patient stated that she passed 3 more times at home, and she forgot to hold her blood pressure medications, she does not remember passing out, no reported seizure-like activity, states that her facial droop is minimal, still has some paresthesias on the right side of her face, still has right homonymous hemianopsia Vitals/I&O/Wt Last Vital Signs Temp 98.2 F 08/17/19 15:41 Pulse 71 08/17/19 15:41 Resp 16 08/17/19 15:41 BP 122/62 08/17/19 15:41 Pulse Ox 94 08/17/19 15:41 08/17/19 08/17/19 08/17/19 06:59 14:59 22:59 Intake Total 240 / 240 240 / 240 Output Total Balance 239 / 239 240 / 240 Weight last 48 hrs Weight 68.039 kg Physical Exam Narrative: EXAM NARRATIVE: Right facial paresthesias, right homonymous hemianopsia Const: COMMON NORMALS: no apparent distress and oriented x3 HENMT: COMMON NORMALS: normocephalic HEAD & SCALP: normocephalic Neck/C-Spine: COMMON NORMALS: no JVD Resp: COMMON NORMALS: normal respiratory effort, no retractions, no use of accessory muscles and clear to auscultation bilaterally AUSCULTATION: clear to auscultation bilaterally Cardio: COMMON NORMALS: no JVD, regular rate, regular rhythm, S1 normal heart sound and S2 normal heart sound RATE: regular rate RHYTHM: regular rhythm HEART SOUNDS: S1 normal and S2 normal GI: COMMON NORMALS: normal to inspection, nondistended, normoactive bowel sounds, soft to palpation, non-tender, no hepatosplenomegaly, no masses and no bruits PALPATION: Yes soft and Yes no hepatosplenomegaly Extremity: COMMON NORMALS: normal capillary refill, no clubbing, cyanosis or edema, no calf tenderness and no pedal edema Neuro: COMMON NORMALS: oriented x3 Psych: COMMON NORMALS: mental status grossly normal Data : 08/16/19 14:29 08/16/19 14:29 A&P Assessment and plan (1) Syncope: -Etiology unclear at this time -We will order an MRI of the brain, EEG -Orthostatic vitals starting tomorrow -Seizure precautions, aspiration precautions, one-on-one sitter -We will see if I can get her event monitor interrogated Status: Acute Qualifiers: Syncope type: unspecified Qualified Code(s): R55 - Syncope and collapse Code(s): R55 - Syncope and collapse (2) Acute back pain: Continue pain control Status: Acute Code(s): M54.9 - Dorsalgia, unspecified (3) Right homonymous hemianopsia: Status: Acute Code(s): H53.461 - Homonymous bilateral field defects, right side (4) Left-sided cerebrovascular accident (CVA): Continue aspirin and Plavix pt ot Status: Acute Code(s): I63.9 - Cerebral infarction, unspecified (5) Paresthesia: Status: Acute Code(s): R20.2 - Paresthesia of skin (6) Aortic stenosis, mild: Status: Acute Code(s): I35.0 - Nonrheumatic aortic (valve) stenosis (7) Angina pectoris: Status: Acute Code(s): I20.9 - Angina pectoris, unspecified (8) CAD (coronary artery disease), [place] coronary artery: Status: Acute Qualifiers: [place] vs. transplanted heart: [place] heart Associated angina: angina presence unspecified Qualified Code(s): I25.10 - Atherosclerotic heart disease of [place] coronary artery without angina pectoris Code(s): I25.10 - Atherosclerotic heart disease of [place] coronary artery without angina pectoris (9) Seizure: -coutinue keppra Status: Acute Code(s): R56.9 - Unspecified convulsions Attestations Medical Necessity Statement*: Requires continued hospitalization due to syncope Coding Level of Care Code Acute Route Inspector for [facility] Fwd Diagnoses Syncope R55 Syncope type: unspecified Acute back pain M54.9 Right homonymous hemianopsia H53.461 Left-sided cerebrovascular accident (CVA) I63.9 Paresthesia R20.2 Aortic stenosis, mild I35.0 Angina pectoris I20.9 CAD (coronary artery disease), [place] coronary artery I25.10 [place] vs. transplanted heart: [place] heart Associated angina: angina presence unspecified Seizure R56.9
[2019-08-17] MEDS: ropinirole 0.25 mg Tablet 0.5 MG PO (22:46)
--- NOTE | 2019-08-17 23:13 | PC.NURSE ---
status pt told COMMERCIAL INTELLIGENCE MANAGER she had a pounding headache. by the time UNIQUE Jhaveri was able to walk out of room to tell this nurse about pt's headache, UNIQUE Jhaveri called back into room then notified this nurse that pt had fainted. this nurse entered room to find pt resting in bed, UNIQUE Howard sitting 1:1 stated pt had been out for one minute. this nurse addressed pt by name and pt immediately opened eyes. neurological check was done and everything WNL. this nurse asked pt if there was anything that had lead up to event. pt stated, My head started pounding then everything went dark and I had numbness in my face and tongue. this nurse touched different areas of pt's face. pt stated she had feeling on her forehead, however she was unable to feel this nurse touching her cheeks. pt stated she was unable to feel this nurse touching any of her right extremities but had feeling on her left side. after two minutes, pt was regaining feeling on her right side.
[2019-08-18] VITALS (10 sets, daily range): BP systolic 95–156; BP diastolic 54–89; PULSE 62–97; RESP 17–20; TEMP 36.4–37.3; O2SAT 65–96
[2019-08-18 06:27] LABS: Basophils % 0.5 %; Eosinophils # 0.1 10^3/uL (0.0-0.8); Hematocrit 36.5 % (37.0-47.0); Hemoglobin 12.1 g/dL (11.5-15.3); Lymphocytes # 0.9 10^3/uL (0.8-4.8); Lymphocytes % 14.6 %; Mean Corpuscular HGB Conc 33.2 g/dL (30.0-36.0); Mean Corpuscular Hemoglobin 30.3 pg (28.0-34.0); Mean Corpuscular Volume 91.5 fL (81-99); Mean Platelet Volume 9.3 fL (7.4-10.4); Monocytes # 0.4 10^3/uL (0.2-0.9); Monocytes % 5.5 %; Neutrophils # 4.9 10^3/uL (1.8-7.7); Neutrophils % 77.2 %; Nucleated Red Blood Cells % 0 %; Platelet Count 174 10^3/cmm (130-400); Red Blood Count 3.99 10^6/uL (4.1-5.3); Red Cell Distribution Width 13.3 % (12.1-15.1); White Blood Count 6.4 10^3/uL (4.0-10.0)
[2019-08-18 06:34] LABS: Alanine Aminotransferase 13 U/L (0-33); Albumin Level 3.9 g/dL (3.5-5.2); Alkaline Phosphatase 118 IU/L (35-105); Aspartate Amino Transferase 17 U/L (0-32); Blood Urea Nitrogen 16 mg/dL (8-23); Calcium 9.1 mg/dL (8.5-10.5); Carbon Dioxide 23 mmol/L (22-29); Chloride 103 mmol/L (98-107); Globulin 2.1 g/dL (1.3-4.6); Glucose 92 mg/dL (65-115); Magnesium 2.4 mg/dL (1.7-2.3); Osmolality Calculated 280 mOsm/kg (285-295); Phosphorus 3.9 mg/dL (2.5-4.5); Sodium 137 mmol/L (136-145); Total Bilirubin 0.4 mg/dL (0.15-1.2)
[2019-08-18] MEDS: levETIRAcetam 500 mg Tablet 1000 MG PO (08:18)
[2019-08-18] MEDS: docusate sodium 100 mg Capsule PO (08:18)
[2019-08-18] MEDS: pantoprazole DR 40 mg Tablet PO (08:19)
[2019-08-18] MEDS: aspirin 81 mg EC Tablet PO (08:19)
[2019-08-18] MEDS: atorvastatin 40 mg Tablet 80 MG PO (08:19)
[2019-08-18] MEDS: clopidogrel 75 mg Tablet PO (08:19)
[2019-08-18] MEDS: magnesium oxide 400 mg tablet PO (08:20)
[2019-08-18] MEDS: sertraline 50 mg Tablet 25 MG PO (08:20)
[2019-08-18] MEDS: sucralfate 1 gm Tablet PO (08:20)
[2019-08-18] MEDS: sodium chloride 0.9% 1,000 ML 75 ML IV (10:32)
--- NOTE | 2019-08-18 12:46 | P.PN_ITS ---
Subjective Subjective: Interval history: Patient this morning has no complaints, is doing well, no fevers, no chills, no nausea, vomiting Patient had one syncopal episode overnight, noticed by nursing staff, lasted about 2 minutes, no seizure-like episodes, no tongue biting, no urinary or bowel incontinence, on telemetric it seems as if she had SVT heart rate 130 but a bit irregular possibly atrial fibrillation, no falls, no injuries, also had some right facial numbness during the episode Vitals/I&O/Wt Last Vital Signs Temp 98.2 F 08/18/19 11:35 Pulse 69 08/18/19 11:35 Resp 18 08/18/19 11:35 BP 131/73 08/18/19 11:35 Pulse Ox 96 08/18/19 11:35 08/17/19 08/18/19 08/18/19 22:59 06:59 14:59 Intake Total 1240 / 1480 1120 / 2600 600 / 600 Output Total 0 / 0 625 / 625 250 / 250 Balance 1240 / 1480 495 / 1975 350 / 350 Weight last 48 hrs Weight 68.039 kg Physical Exam Const: COMMON NORMALS: no apparent distress and oriented x3 HENMT: COMMON NORMALS: normocephalic HEAD & SCALP: normocephalic Neck/C-Spine: COMMON NORMALS: no JVD Resp: COMMON NORMALS: normal respiratory effort, no retractions, no use of accessory muscles and clear to auscultation bilaterally AUSCULTATION: clear to auscultation bilaterally Cardio: COMMON NORMALS: no JVD, regular rate, regular rhythm, S1 normal heart sound and S2 normal heart sound RATE: regular rate RHYTHM: regular rhythm HEART SOUNDS: S1 normal and S2 normal GI: COMMON NORMALS: normal to inspection, nondistended, normoactive bowel sounds, soft to palpation, non-tender, no hepatosplenomegaly, no masses and no bruits PALPATION: Yes soft and Yes no hepatosplenomegaly Extremity: COMMON NORMALS: normal capillary refill, no clubbing, cyanosis or edema, no calf tenderness and no pedal edema Neuro: COMMON NORMALS: oriented x3 Psych: COMMON NORMALS: mental status grossly normal Data : 08/18/19 05:39 08/18/19 05:39 A&P Assessment and plan (1) Syncope: -One episode as inpatient, no seizure-like symptoms, not vasovagal, not orthostatic, telemetry monitoring showed what looked like SVT versus A. fib, did have right facial numbness, lasted 2 minutes -We will order an MRI of the brain, EEG will be performed tomorrow -Seizure precautions, aspiration precautions, one-on-one sitter -We will see if I can get her event monitor interrogated tomorrow and cardiac care opens Status: Acute Qualifiers: Syncope type: unspecified Qualified Code(s): R55 - Syncope and collapse Code(s): R55 - Syncope and collapse (2) Acute back pain: Continue pain control Status: Acute Code(s): M54.9 - Dorsalgia, unspecified (3) Right homonymous hemianopsia: Status: Acute Code(s): H53.461 - Homonymous bilateral field defects, right side (4) Left-sided cerebrovascular accident (CVA): Continue aspirin and Plavix pt ot Status: Acute Code(s): I63.9 - Cerebral infarction, unspecified (5) Paresthesia: Status: Acute Code(s): R20.2 - Paresthesia of skin (6) Aortic stenosis, mild: Status: Acute Code(s): I35.0 - Nonrheumatic aortic (valve) stenosis (7) Angina pectoris: Status: Acute Code(s): I20.9 - Angina pectoris, unspecified (8) CAD (coronary artery disease), [place] coronary artery: Status: Acute Qualifiers: [place] vs. transplanted heart: [place] heart Associated angina: angina presence unspecified Qualified Code(s): I25.10 - Atherosclerotic heart disease of [place] coronary artery without angina pectoris Code(s): I25.10 - Atherosclerotic heart disease of [place] coronary artery without angina pectoris (9) Seizure: -coutinue keppra Status: Acute Code(s): R56.9 - Unspecified convulsions Additional A&P Information 1. Recent CVA : continue ASA, Plavix 2.. HTN: We will start medications today Contiue telemtery monitoring Mid aortic stenosis h/o CAD Full code Dvt ppx: Scd Attestations Medical Necessity Statement*: Cards continued hospitalization for syncope Coding Level of Care Code Acute Enrollment Eligibility Representative for [facility] Fwd Diagnoses Syncope R55 Syncope type: unspecified Acute back pain M54.9 Right homonymous hemianopsia H53.461 Left-sided cerebrovascular accident (CVA) I63.9 Paresthesia R20.2 Aortic stenosis, mild I35.0 Angina pectoris I20.9 CAD (coronary artery disease), [place] coronary artery I25.10 [place] vs. transplanted heart: [place] heart Associated angina: angina presence unspecified Seizure R56.9
--- NOTE | 2019-08-18 13:32 | PC.NURSE ---
PATIENT STATUS PATIENT HAD EPISODE OF SYNCOPE WITNESSED BY JACIEL CALHOUN, WHILE SITTING WITH PATIENT 1:1. AT THIS TIME PATIENT WAS SITTING UP IN CHAIR. PIG CONVEYOR OPERATOR REPORTED THAT PATIENT STATES SHE WAS FEELING LIGHT HEADED AND EYES ROLLED BACK. PATIENT ALSO REPORTED THAT THE RIGHT SIDE OF HER FACE BECOMES NUMB DURING THESE EPISODES. PATIENT WAS HELPED BACK TO BED TO ENSURE PATIENT SAFETY AND VITAL SIGNS OBTAINED. ALL VITAL SIGNS WITHIN NORMAL LIMITS. WILL CONTINUE TO MONITOR.
[2019-08-18] MEDS: isosorbide mononitrate ER 60 mg Tablet PO (14:22)
[2019-08-18] MEDS: FUROsemide 40 mg Tablet PO (14:22)
[2019-08-18] MEDS: ropinirole 0.25 mg Tablet 0.5 MG PO (20:38)
[2019-08-19] VITALS (8 sets, daily range): BP systolic 97–144; BP diastolic 59–80; PULSE 65–93; RESP 16–18; TEMP 36.5–37.4; O2SAT 91–97
[2019-08-19 05:37] LABS: Basophils % 0.3 %; Eosinophils # 0.3 10^3/uL (0.0-0.8); Eosinophils % 4.2 %; Hematocrit 33.7 % (37.0-47.0); Mean Corpuscular HGB Conc 32.6 g/dL (30.0-36.0); Mean Corpuscular Hemoglobin 30.9 pg (28.0-34.0); Mean Corpuscular Volume 94.7 fL (81-99); Mean Platelet Volume 9.3 fL (7.4-10.4); Monocytes # 0.4 10^3/uL (0.2-0.9); Monocytes % 6.8 %; Neutrophils # 4.3 10^3/uL (1.8-7.7); Neutrophils % 71.4 %; Nucleated Red Blood Cells % 0 %; Platelet Count 247 10^3/cmm (130-400); Red Blood Count 3.56 10^6/uL (4.1-5.3); Red Cell Distribution Width 13.6 % (12.1-15.1)
[2019-08-19 06:18] LABS: Alanine Aminotransferase 12 U/L (0-33); Albumin Level 3.9 g/dL (3.5-5.2); Alkaline Phosphatase 115 IU/L (35-105); Anion Gap 16.7 (5-19); Aspartate Amino Transferase 16 U/L (0-32); Blood Urea Nitrogen 15 mg/dL (8-23); Calcium 9.2 mg/dL (8.5-10.5); Carbon Dioxide 25 mmol/L (22-29); Chloride 100 mmol/L (98-107); Globulin 2.4 g/dL (1.3-4.6); Glucose 87 mg/dL (65-115); Magnesium 2.2 mg/dL (1.7-2.3); Osmolality Calculated 282 mOsm/kg (285-295); Phosphorus 4.2 mg/dL (2.5-4.5); Potassium 3.7 mmol/L (3.5-5.1); Sodium 138 mmol/L (136-145); Total Bilirubin 0.4 mg/dL (0.15-1.2); Total Protein 6.3 g/dL (6.6-8.7)
[2019-08-19] MEDS: FUROsemide 40 mg Tablet PO (09:00)
[2019-08-19] MEDS: pantoprazole DR 40 mg Tablet PO (09:01)
[2019-08-19] MEDS: isosorbide mononitrate ER 60 mg Tablet PO (09:01)
[2019-08-19] MEDS: hydroCHLOROthiazide 25 mg Tablet 12.5 MG PO (09:01)
[2019-08-19] MEDS: clopidogrel 75 mg Tablet PO (09:01)
[2019-08-19] MEDS: magnesium oxide 400 mg tablet PO (09:01)
[2019-08-19] MEDS: sucralfate 1 gm Tablet PO (09:01)
[2019-08-19] MEDS: docusate sodium 100 mg Capsule PO (09:02)
[2019-08-19] MEDS: ferrous sulfate EC 325 mg Tablet PO (09:02)
[2019-08-19] MEDS: levETIRAcetam 500 mg Tablet 1000 MG PO (09:02)
[2019-08-19] MEDS: aspirin 81 mg EC Tablet PO (09:02)
[2019-08-19] MEDS: atorvastatin 40 mg Tablet 80 MG PO (09:02)
[2019-08-19] MEDS: metoprolol succinate ER (24 HR) 25 mg Tablet 12.5 MG PO (09:02)
--- NOTE | 2019-08-19 09:59 | PC.NURSE ---
[facility] TRANSPORT HERE TO TAKE PATIENT TO [place] FOR HER SCHEDULED MRI. PATIENT TRANSFERRED VIA WHEELCHAIR.
--- NOTE | 2019-08-19 10:15 | MR_ITS ---
WS: [id number] MRI HEAD WITHOUT CONTRAST TECHNIQUE: Sagittal T1, T2 axial, T2 axial FLAIR, axial and coronal T1 images, axial susceptibility w eighted imaging, axial diffusion weighted images, and coronal T2 images were obtained. CLINICAL INFORMATION: syncope COMPARISON: CT August 16, 2019 FINDINGS: No evidence of restricted diffusion to suggest acute ischemia. Mild small vessel changes. Moderate parenchymal volume loss. Periventricular white matter changes con sistent with small vessel disease. Small vessel changes in the rose. Normal vascular flow voids at th e skull base. Mastoid air cells are well aerated. Paranasal sinuses are well aerated. No hemosiderin on the susceptibility weighted images. Normal opti c chiasm and pituitary infundibulum. Normal temporal lobes hippocampal formations. MR/MR head wo con* [id number] IMPRESSION: 1. No evidence of restricted diffusion to suggest acute ischemia. 2. Mild small vessel changes with moderate parenchymal volume loss. 3. No hemosiderin on susceptibly weighted images. 4. Paranasal sinuses are well aerated. Mild mucosal thickening in the right gr eater than left mastoid air cells. 5. No other significant findings.
--- NOTE | 2019-08-19 10:16 | PC.NURSE ---
RADIOLOGY UNABLE TO PERFORM MRI WITH HOLTER MONITOR FROM [facility] IN PLACE AND CALLED ASKING IF IT CAN BE TAKEN OFF. I CALLED AN SPOKE TO MICAH AT [facility] AND SHE STATED IT WAS FINE FOR PATIENT TO REMOVE IT FOR THE TEST THAT SHE WOULD JUST BE UNABLE TO PLACE IT BACK. HOLTER MONITOR REMOVED FOR NEEDED TEST.
--- NOTE | 2019-08-19 17:17 | PM.MISC ---
Miscellaneous Note Purpose of Documentation: EEG Note: ORDERING PHYSICIAN: Maninder Call MD. REASON FOR STUDY: Syncope. STUDY: This was a 21 channel digital electroencephalogram performed using the 10-20 international system of electrode placement. This study was non-sleep deprived and the patient was awake, and drowsy and asleep. Photic stimulation and hyperventilation were included. This study was performed at the bedside in the hospital with many resultant artifacts. FINDINGS: The waking background was characterized by mixed fast activity superimposed upon theta. There was intermittent posterior alpha at 8 Hz. There was artifact in the O2 lead throughout the study. There were periods of drowsiness characterized by mild diffuse slowing. She did not fall asleep. Photic stimulation produced a bilateral driving response in the occipital leads without any evidence of a photoconvulsive response. Hyperventilation for three minutes was performed well and had an alerting effect. No focal, lateralizing or epileptiform activity was seen. IMPRESSION: This was a normal routine EEG, awake and drowsy, with no behavioral or electrographic epileptiform activity. A normal EEG does not exclude a diagnosis of epilepsy. A sleep deprived tracing is recommended if seizures are strongly suspected. Duration of EEG:
--- NOTE | 2019-08-19 17:59 | P.DS_ITS ---
Discharge Providers Date of Admission: 08/17/19 16:48 Date of Discharge: August 19, 2019 Attending Provider at Admission: Swati Eddy MD Attending Provider at Discharge: Jay Concepcion MD Primary Care Provider: Justin Chapman DO Diagnoses at Discharge Discharge Diagnosis (1) Syncope: Status: Acute Problem details: Concerned this might be orthostatic. Lasix has been discontinued. Encourage hydration. MRI, EEG negative. Qualifiers: Syncope type: unspecified Qualified Code(s): R55 - Syncope and collapse (2) Acute back pain: Status: Acute (3) Right homonymous hemianopsia: Status: Acute (4) Left-sided cerebrovascular accident (CVA): Status: Acute (5) Paresthesia: Status: Acute (6) Aortic stenosis, mild: Status: Acute Problem details: Stable (7) Angina pectoris: Status: Acute Problem details: Status post PCI to diagonal branch. No more angina (8) CAD (coronary artery disease), [place] coronary artery: Status: Acute Problem details: Diagonal branch for significant ostial and proximal diagonal lesion. It was treated with 2 overlapping drug-eluting stents Qualifiers: [place] vs. transplanted heart: [place] heart Associated angina: angina presence unspecified Qualified Code(s): I25.10 - Atherosclerotic heart disease of [place] coronary artery without angina pectoris (9) Seizure: Status: Acute Reason for Visit Reason for Visit: Reason For Visit: numbness rt side Hospital Course Hospital Course: 69-year-old white female who presented to the hospital with concern of syncope while setting. Recent Holter monitor demonstrated sinus rhythm. During her hospital stay her event monitor was continued. She did have one event while in the hospital but no obvious arrhythmia was detected. During her hospital stay an MRI, and EEG were performed which had no acute changes. She had had a previous extensive work-up for CVA including CTA of neck, CT head, carotid duplex. Overall, it is likely that her events may be related to orthostatic hypotension. She has history of underlying seizure disorder, and I suppose this is a secondary possibility even with her normal EEG. I did recommend to her to stop her tramadol as this could lessen seizure threshold. She will be discharged home with home health, staying with her sister for the time being to see if the medication changes lead to less events. She was encouraged to hydrate. She will follow-up with her primary care provider in the next 3 to 5 days. From my understanding she already has follow-up with neurology. She will follow-up with her event monitor as well. Of note, patient reports her Lasix was added for some lower extremity edema which occurred with hip replacement approximately 1 year ago. She reports no history of heart failure and last EF is 65%. Physical Exam Narrative: EXAM NARRATIVE: General exam is no apparent distress. Telemetry demonstrates no significant arrhythmias Cardiovascular regular rate and rhythm without murmur Lungs clear Abdomen is soft and positive bowel sounds Extremities no cyanosis clubbing. No edema. Discharge Data Data Completed and Pending: Completed Studies During Hospitalization Category Date Time Status CT angio chest PE protcl [id number] Stat Cat Scan 08/16/19 17:[address] head wo con* 7 0450 Urgent Cat Scan 08/16/19 13:48 Completed XR chest 1V cyndy ble [id number] Stat Exams 08/16/19 13:48 Completed MR head wo con* 7 0551 Routine MRI 08/19/19 10:15 Completed Pending at discharge Category Date Time Status EEG electroenceph alogram Routine Exams 08/17/19 15:50 Ordered Complete Blood Co unt w/Auto AM LABS Lab 08/20/19 04:00 Ordered Comprehensive Met abolic Panel AM LA BS Lab 08/20/19 04:00 Ordered Magnesium AM LABS Lab 08/20/19 04:00 Ordered Phosphorus AM LAB S Lab 08/20/19 04:00 Ordered Labs from last 24 hours 08/19/19 08/19/19 04:36 04:36 WBC 6.0 RBC 3.56 L Hgb 11.0 L Hct 33.7 L MCV 94.7 MCH 30.9 MCHC 32.6 RDW 13.6 Plt Count 247 MPV 9.3 Neut % (Auto) 71.4 Lymph % (Auto) 17.0 [place] % (Auto) 6.8 Eos % (Auto) 4.2 Baso % (Auto) 0.3 Neut # (Auto) 4.3 Lymph # (Auto) 1.0 [place] # (Auto) 0.4 Eos # (Auto) 0.3 Baso # (Auto) 0.0 Nucleated RBC % (a uto) 0 Nucleated RBCs # 0.0 Sodium 138 Potassium 3.7 Chloride 100 Carbon Dioxide 25 Anion Gap 16.7 BUN 15 Creatinine 1.1 H Glucose 87 Calculated Osmolal ity 282 L Calcium 9.2 Phosphorus 4.2 Magnesium 2.2 Total Bilirubin 0.4 AST 16 ALT 12 Alkaline Phosphata se 115 H Total Protein 6.3 L Albumin 3.9 Globulin 2.4 Vitals: Last Vital Signs Temp 97.7 F 08/19/19 09:00 Pulse 93 08/19/19 09:00 Resp 16 08/19/19 09:00 BP 123/76 08/19/19 09:00 Pulse Ox 94 08/19/19 09:00 Discharge Plan Discharge Patient Disposition: Home Health Service Condition: Stable Prescriptions: Continued ropinirole [Requip] 5 mg tablet 0.5 mg PO BEDTIME RF: 0 nitroglycerin 0.4 mg tablet, sublingual 0.4 mg SUBLINGUAL Q5M PRN (Reason: chest pain) Qty: 30 RF: 2 clopidogrel 75 mg tablet 75 mg PO DAILY RF: 0 potassium chloride 20 mEq tablet extended release 10 meq PO DAILY RF: 0 aspirin 81 mg tablet,delayed release (DR/EC) 81 mg PO DAILY RF: 0 magnesium 400 mg PO DAILY RF: 0 docusate sodium [Colace] 100 mg capsule 100 mg PO DAILY RF: 0 levetiracetam 500 mg tablet 1,000 mg PO DAILY RF: 0 omeprazole 40 mg capsule,delayed release(DR/EC) 40 mg PO DAILY RF: 0 acetaminophen [Tylenol Extra Strength] 500 mg tablet 1,000 mg PO .prn PRN (Reason: Pain) RF: 0 isosorbide mononitrate 60 mg Tablet Extended Release 24 Hr 60 mg PO DAILY RF: 0 ferrous sulfate 325 mg (65 mg iron) Tablet 325 mg PO DAILY RF: 0 sertraline 25 mg Tablet 25 mg PO DAILY RF: 0 hydrochlorothiazide 12.5 mg Tablet 12.5 mg PO DAILY RF: 0 metoprolol succinate 25 mg Capsule,Sprinkle,Er 24hr 12.5 mg PO DAILY RF: 0 sucralfate 1 gram Tablet 1 g PO DAILY RF: 0 atorvastatin 40 mg Tablet 80 mg PO DAILY 30 Days Qty: 30 RF: 0 Discontinued Lasix 40 mg Tablet 40 mg PO BID RF: 0 meloxicam 15 mg Tablet 15 mg PO DAILY RF: 0 tramadol 50 mg Tablet 50 mg PO TID PRN (Reason: Pain) RF: 0 Referrals: [facility] [Outside] Justin Chapman, DO [Primary Care Provider] - 4-7 days Discharge Diet: Cardiac Discharge Activity: Increase activity as tolerated Activity Restrictions/Additional Instructions: Fall precautions. Take all medicine as prescribed. Call your primary care provider if any progressive ankle swelling. Discharge Attestations Time Spent in Discharge Care*: greater than 30 min Quality Metrics Clinical Quality Measures During this hospital stay, did patient experience: None Coding Level of Care Code Acute Pricing Supervisor for miya Fwd Diagnoses Syncope R55 Syncope type: unspecified Acute back pain M54.9 Right homonymous hemianopsia H53.461 Left-sided cerebrovascular accident (CVA) I63.9 Paresthesia R20.2 Aortic stenosis, mild I35.0 Angina pectoris I20.9 CAD (coronary artery disease), [place] coronary artery I25.10 [place] vs. transplanted heart: [place] heart Associated angina: angina presence unspecified Seizure R56.9
== END 2019-08-19 20:26 | disposition home health service (06) | DRG 312 ==
LOC: ER 08-17 00:20 → MEDSURG 08-17 00:27
PROVIDERS: Family Medicine; Admitting Provider Student in an Organized Health Care Education/Training Program; Emergency Provider Family Medicine; Family Provider Electrodiagnostic Medicine; PCP Electrodiagnostic Medicine; Visit Provider Internal Medicine
DX: I95.1 Orthostatic hypotension (principal); I63.9 Cerebral infarction, unspecified; I25.110 Atherosclerotic heart disease of native coronary artery with unstable angina pectoris; M54.9 Dorsalgia, unspecified; H53.461 Homonymous bilateral field defects, right side; I35.0 Nonrheumatic aortic (valve) stenosis; R56.9 Unspecified convulsions; I10 Essential (primary) hypertension; I69.992 Facial weakness following unspecified cerebrovascular disease; R20.2 Paresthesia of skin; G89.29 Other chronic pain; F45.42 Pain disorder with related psychological factors; Z79.83 Long term (current) use of bisphosphonates; Z79.82 Long term (current) use of aspirin; Z79.899 Other long term (current) drug therapy; Z95.820 Peripheral vascular angioplasty status with implants and grafts
CPT/HCPCS: 12345; 36415; 70450; 70496; 70498; 70551; 71045; 71275; 72131; 74177; 80053; 80061; 81003; 83036; 83735; 84100; 84443; 84484; 85025; 85378; 85610; 93005; 93010; 93306; 93880; 94664; 96372; 97116; 97161; 97165; 97530; 99283; 99284; 99285; G0378; J1650; J7030; Q9967

== ENCOUNTER → 2019-08-27 08:08 | Outpatient (BNVA) | payer MEDICARE, SELFPAY | PROVIDERS: Family Provider Electrodiagnostic Medicine; PCP Electrodiagnostic Medicine; Referring Provider Family Medicine; Visit Provider Specialist | DX: R55 Syncope and collapse (principal); R56.9 Unspecified convulsions; Z87.891 Personal history of nicotine dependence | CPT/HCPCS: 99205 ==

== ENCOUNTER 2019-10-24 07:29 | Outpatient (CLI) | payer MEDICARE, SELFPAY ==
--- NOTE | 2019-10-24 07:53 | MM_ITS ---
WS: [id number] LEFT DIGITAL MAMMOGRAPHY WITH CAD CLINICAL INFORMATION: HX OF BREAST CANCER. PRIOR RIGHT MASTECTOMY. COMPARISON: 04/28/2017 and 07/13/2015. TECHNIQUE: 3 views of the left breast were obtained. FINDINGS: Scattered fibroglandular densities of the left breast. No suspicious focal mass, asymmetry, calcifications, or architectural distortion. No evidence of ida gnancy. Vascular calcification. MM/[place] [id number] IMPRESSION: BI-RADS: 2-Benign FOLLOW UP: 1 Year Follow-up Recommend return to annual diagnostic mammography.
[2019-10-24 08:50] LABS: Basophils # 0.1 10^3/uL (0.0-0.1); Basophils % 0.9 %; Eosinophils # 0.2 10^3/uL (0.0-0.8); Hematocrit 36.8 % (37.0-47.0); Hemoglobin 11.9 g/dL (11.5-15.3); Lymphocytes # 0.9 10^3/uL (0.8-4.8); Lymphocytes % 15.1 %; Mean Corpuscular HGB Conc 32.3 g/dL (30.0-36.0); Mean Corpuscular Hemoglobin 31.1 pg (28.0-34.0); Mean Corpuscular Volume 96.1 fL (81-99); Mean Platelet Volume 9.1 fL (7.4-10.4); Monocytes # 0.5 10^3/uL (0.2-0.9); Monocytes % 9.3 %; Neutrophils # 4.1 10^3/uL (1.8-7.7); Neutrophils % 71.3 %; Nucleated Red Blood Cells % 0 %; Platelet Count 308 10^3/cmm (130-400); Red Blood Count 3.83 10^6/uL (4.1-5.3); Red Cell Distribution Width 13.5 % (12.1-15.1); White Blood Count 5.7 10^3/uL (4.0-10.0)
[2019-10-24 09:09] LABS: Alanine Aminotransferase 22 U/L (0-33); Albumin Level 4.2 g/dL (3.5-5.2); Alkaline Phosphatase 153 IU/L (35-105); Anion Gap 14.5 (5-19); Aspartate Amino Transferase 24 U/L (0-32); Blood Urea Nitrogen 14 mg/dL (8-23); Carbon Dioxide 27 mmol/L (22-29); Chloride 96 mmol/L (98-107); Globulin 2.4 g/dL (1.3-4.6); Glucose 79 mg/dL (65-115); Osmolality Calculated 273 mOsm/kg (285-295); Potassium 3.5 mmol/L (3.5-5.1); Sodium 134 mmol/L (136-145); Total Bilirubin 0.4 mg/dL (0.15-1.2); Total Protein 6.6 g/dL (6.6-8.7)
== END 2019-10-24 07:30 | disposition home or self-care (01) ==
PROVIDERS: Family Medicine; PCP Electrodiagnostic Medicine; Visit Provider Internal Medicine Hematology & Oncology
DX: Z85.3 Personal history of malignant neoplasm of breast (principal)
CPT/HCPCS: 77065; 80053; 85025

== ENCOUNTER 2019-10-25 07:56 | Outpatient (CLI) | payer MEDICARE, SELFPAY ==
--- NOTE | 2019-10-25 10:07 | ONC FU_ITS ---
Dr. Reeder follow up note Patient: Karina Leija Unit #: [id number]: 1950 Dicatated By: Ariana Reeder M.D.Date of Visit:October 25, 2019 Onc Med Follow-up/Prog Note History of Present Illness: Mrs Karina Leija, 69 -year-old female with a history of DCIS involving the right breast per ultrasound-guided biopsy breast on 08/24/2015. 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 As per patient she underwent routine mammogram on 08/11/2015 and it showed large area of very suspicious calcification at 12:00 position extending to the nipple. Patient was referred to surgeon but patient decided not to go for surgery or further evaluation. And about 3 months ago she noticed milky, not bloody ,discharge from her right nipple a . And also noticed lump in her right axilla and under her nipple. No other complaints, no bony pains. On 05/17/2017 she underwent right breast biopsy and right axillary lymph node biopsy and it showed infiltrating ductal carcinoma grade 3 ER/VA negative HER-2/rekha negative lymph node biopsy from right axilla was positive for metastatic disease Status post adjuvant chemotherapy with Taxotere and Cytoxan ???4 from 07/26/2017 to 10/05/2017 s/p right hip pain for which hip replacementdone in June 2018 Recently underwent right chest wall wound excision and final pathology report shows chronic inflammation. Now with good healing. Due to lower extremity swellings she underwent venous Doppler study of lower extremity on 03/08/2018 which showed no DVT CT PET scan done on 05/12/2018 showed no evidence of recurrent or residual disease. Came for follow-up, denies any specific complaints, no fever or chills, no nausea or vomiting, no diarrhea constipation, no new bony pains, appetite is good. Medications: Aspirin 1 Tablet (of 81 mg) Tablet Oral daily, Atorvastatin Calcium 1 Tablet (of 80 mg) Oral daily, Benadryl 1 - 2 Tablet (of 25 mg) Oral q 4 to 6 hours PRN, Docusate Sodium 1 Tablet (of 100 mg) Oral daily, FeroSul 1 Tablet (of 325 (65 fe) mg) Oral b.i.d., hydroCHLOROthiazide 1 Capsule (of 12.5 mg) Oral daily, Hydrocodone-Acetaminophen 1 Tablet (of 7.5-325 mg) Oral q 4 to 6 hours PRN, Isosorbide Mononitrate 1 Tablet (of 60 mg) Oral daily, K-Tab 1 Tablet (of 10 meq) Tablet, controlled release Oral b.i.d., Lasix 1 Tablet (of 40 mg) Oral daily, LevETIRAcetam 1 Tablet (of 1000 mg) Oral b.i.d., LORazepam 0.5 - 1 Tablet (of 1 mg) Oral t.i.d. PRN, Meloxicam 1 Tablet (of 15 mg) Oral daily, Metoprolol Succinate ER 1 Tablet (of 25 mg) Tablet SR 24 HR Oral daily, Nitroglycerin 1 (0.4 mg) Tablet, sublingual Sublingual PRN, Omeprazole 1 Tablet (of 40 mg) Tablet, enteric coated Oral daily, Plavix 1 (75 mg) Tablet Oral daily, rOPINIRole HCl 1 Tablet (of 0.5 mg) Oral at bedtime, Sertraline HCl 1 Tablet (of 25 mg) Tablet Oral daily, Simvastatin 1 Tablet (of 20 mg) Oral daily, Sucralfate 1 Tablet (of 1 g) Oral t.i.d. PRN, traMADol HCl 1 Tablet (of 50 mg) Oral t.i.d. PRN Allergies: Silvadene Review of Systems: Constitutional - Appetite is fair. No fever, chills, hot flashes, or night sweats. Energy level is fair, ENMT - No sinus congestion/drainage. No mouth sores. No sore throat or difficulty swallowing, Hematologic/Lymphatic - No abnormal bruising or bleeding, Respiratory - No shortness of breath. No cough. No pleuritic pain or hemoptysis, Cardiovascular - No angina pain. No palpitations, Gastrointestinal - No nausea or vomiting. No heartburn or acid reflux. No diarrhea or constipation. No blood in the stool or black stools, Genitourinary (F) - No dysuria or hematuria. No urinary frequency. No urgency or incontinence, Musculoskeletal - Patient reports bilateral hip pain, Neurologic - No headache or dizziness. No numbness/paresthesias or other focal neurologic symptoms, Psychiatric - No anxiety or depression. No insomnia. Vital Signs: Performed on October 25, 2019 08:08 Height - 64.00 in Weight - 171.2 lbs (HIGH) BSA - 1.83 sq.m BMI - 29.39 Temperature - 97 F (LOW) Pulse - 80 /min Respiration - 17 /min BP - 113/66 mm(hg) O2 Sat - 97 % Pain - 9 Performance Status: 0 - Fully active, able to carry on all predisease activities without restrictions. (ECOG) Physical Examination: Respiratory - Lungs are clear, Cardiovascular - Regular rate and rhythm of heart, Extremities - trace edema, no rash. Lab/Imaging: Test performed on October 24, 2019 07:45 Glucose 79 mg/dL BUN 14 mg/dL Creatinine 0.9 mg/dL Cr Clearance (Est) 70.2900 mL/min Sodium 134 mmol/L Potassium 3.5 mmol/L Chloride 96 mmol/L CO2 27 mmol/L Calcium 9.0 mg/dL Protein, Total 6.6 g/dL Albumin 4.2 g/dL Globulin 2.4 g/dL Bilirubin, Total 0.4 mg/dL Alkaline Phosphatase 153 IU/L AST (SGOT) 24 IU/L ALT (SGPT) 22 IU/L WBC 5.7 10^9/L RBC 3.83 10^12/L HGB 11.9 g/dL HCT 36.8 % MCV 96.1 fl MCH 31.1 pg MCHC 32.3 g/dL RDW 13.5 % Platelet Count 308 10^9/L MPV 9.1 fL Neutrophils (Gran) 4.1 10^9/L Lymphocytes 0.9 10^9/L Monocytes 0.5 10^9/L Eosinophils 0.2 10^9/L Basophils 0.1 10^9/L Manual Lymphocytes 15.1 % Manual Monocytes 9.3 % Manual Eosinophils 3.0 % Manual Basophils 0.9 % Impression: 1. Infiltrating ductal carcinoma of right breast status post radical mastectomy with axillary dissection done on 06/22/2017 Size of invasive component 1.1 x 1 cm, grade 3, clear surgical margins pT1c 8 out of 15 axillary lymph nodes showed metastatic disease, tumor within capsule and extracapsular lymphatic spaces. pN2 ER negative VA negative and HER-2/rekha negative Ki-67 41% Stage IIIa Status post adjuvant chemotherapy with Taxotere and Cytoxan ???4 from 07/26/2017 through 10/05/2017 2.Right hip replacement in June 2018, now left hip replacement is under consideration X-ray hip done on 11/13/2017 showed advanced degenerative arthritis both hips with complete loss of joint space and [id number] articulation. Underlying sclerosis in the femoral heads suspicion for avascular necrosis CT PET scan done on 05/12/2018 showed no evidence of recurrent or residual disease Anemia normocytic normochromic etiology unclear could be underlying myelodysplasia or anemia of chronic disease patient has chronic arthritis involving bilateral hip right more than left. Resolved Plan: Discussed with patient regarding her labs white blood count 5.7 hemoglobin 11.9 hematocrit 36.8 platelets 300,000 CMP within normal limits and her mammogram done on 10/24/2019 showed benign findings and her left breast, patient is status post right mastectomy. Clinically, patient is doing well with no signs symptom suggestive of recurrence of disease but because of poor chronic back pain PMD order x-ray thoracic spine which was done on 08/06/2019 and it showed osteopenia but no acute appearing compression fractures. Patient was advised to start taking vitamin D/calcium supplement and we will consider DEXA scan to decide whether she will benefit from biphosphonate. X Return to clinic in 6 months with CBC CMP and DEXA scan. Signed By: Ariana Reeder M.D. <<Signature on File>>
== END 2019-10-25 07:57 | disposition home or self-care (01) ==
LOC: ONCMED 08:00
PROVIDERS: PCP Electrodiagnostic Medicine; Visit Provider Internal Medicine Hematology & Oncology
DX: Z08 Encounter for follow-up examination after completed treatment for malignant neoplasm (principal); Z85.3 Personal history of malignant neoplasm of breast; M85.88 Other specified disorders of bone density and structure, other site; M13.852 Other specified arthritis, left hip; M13.851 Other specified arthritis, right hip; Z90.11 Acquired absence of right breast and nipple; Z92.21 Personal history of antineoplastic chemotherapy; Z96.641 Presence of right artificial hip joint
CPT/HCPCS: G0463

== ENCOUNTER → 2019-11-27 09:41 | Outpatient (BNVA) | payer MEDICARE, SELFPAY | PROVIDERS: PCP Electrodiagnostic Medicine; Visit Provider Specialist | DX: R55 Syncope and collapse (principal); F44.5 Conversion disorder with seizures or convulsions; F44.6 Conversion disorder with sensory symptom or deficit | CPT/HCPCS: 99213 ==

== ENCOUNTER 2019-11-28 13:09 | Outpatient (CLI) | payer MEDICARE, SELFPAY ==
--- NOTE | 2019-11-28 13:21 | XR_ITS ---
WS: [id number] DEXA (DUAL ENERGY X-RAY ABSORPTIOMETRY) Bone mineral density was performed using a [employer] machine. HISTORY: OSTEOPOROSIS COMPARISON: None available. Lumbar spine BMD (L1-L4): 0.940 g/cm2 T score: -2.0 Z score: -0.6 Left forearm BMD: 0.650 g/cm2. T score: -2.6 Z score: -0.6 XR/XR DEXA axial skeleton* [id number] IMPRESSION: OSTEOPENIA based upon the WHO classification for females.
== END 2019-11-28 13:10 | disposition home or self-care (01) ==
LOC: RADWPI 13:13
PROVIDERS: PCP Electrodiagnostic Medicine; Visit Provider Internal Medicine Hematology & Oncology
DX: M81.0 Age-related osteoporosis without current pathological fracture (principal)
CPT/HCPCS: 77080

== ENCOUNTER 2019-12-11 10:00 | Outpatient (CLI) | payer MEDICARE, SELFPAY ==
--- NOTE | 2019-12-11 10:15 | USCV_ITS ---
Karina Leija Age: 69 Gender: F : 1950 Exam Date: 12/11/2019 10:38 Ordering Phys: Chelsie Gamble Technologist: Isidra Jacob [place]am Location: [facility] [place]: HISTORY: PROCEDURES: FINDINGS: The veins were found to be easily compressible with spontaneous blood flow. CONCLUSIONS 1. Significant venous reflux of greater than 500 ms was noted at the proximal greater saphenous vein segment on the right side. This segment of the vein was found to be 0.32 cm in diameter, at a depth of 1.66 cm from the surface 2. Significant venous reflux of greater than 500 ms(4220) was noted at the below-knee greater saphenous vein segment on the left side. This vein was found to be 0.45 cm in diameter at a depth of 1.46 cm from the surface 3. The venous dimensions, depth on the surface are as mentioned above. 4. No deep vein thrombosis was noted Dr Rebecca Berger MD [facility] (Electronically Signed) Final Date: 12 December 2019 08:55 S
== END 2019-12-11 10:01 | disposition home or self-care (01) ==
LOC: RAD 10:00
PROVIDERS: PCP Electrodiagnostic Medicine; Visit Provider Nurse Practitioner Family
DX: I87.2 Venous insufficiency (chronic) (peripheral) (principal)
CPT/HCPCS: 93970

== ENCOUNTER 2019-12-24 08:40 | Outpatient (CLI) | payer MEDICARE, SELFPAY ==
--- NOTE | 2019-12-24 08:46 | XR_ITS ---
WS: [id number] CHEST 2 VIEWS HISTORY: BRONCHITIS, CHRONIC COMPARISON: 08/16/2019 Lungs: Mild hyperexpansion and chronic emphysema. Mild biapical pleural thickening and scarring. No p neumonia. Normal vasculature. Cardiac size: Normal. Mediastinum/Aorta: Mild atherosclerosis aorta. Bones: Mild osteopenia. Degenerative changes at the AC joints. XR/XR chest 2V* [id number] IMPRESSION: Chronic emphysema with partially calcified aorta.
== END 2019-12-24 08:41 | disposition home or self-care (01) ==
LOC: RADWPI 08:44
PROVIDERS: Family Provider Electrodiagnostic Medicine; PCP Electrodiagnostic Medicine; Visit Provider Electrodiagnostic Medicine
DX: J42 Unspecified chronic bronchitis (principal); J43.9 Emphysema, unspecified; I70.0 Atherosclerosis of aorta
CPT/HCPCS: 71046

== ENCOUNTER 2020-01-17 11:32 | Emergency (ER) | payer MEDICARE, SELFPAY ==
[2020-01-17 11:35] VITALS: BP 141/76; PULSE 93; RESP 20; TEMP 37.2; O2SAT 96; BMI 29.7
--- NOTE | 2020-01-17 11:42 | W.ED.GENADLT ---
HPI - General Adult General: Chief complaint: General Medical Stated complaint: SWELLING Time Seen by Provider: 01/17/20 11:36 Source: patient Mode of arrival: ambulatory Limitations: no limitations History of Present Illness: HPI narrative: Ms. Leija is a very nice 69-year-old female who comes in complaining of abdominal pain and bilateral arm and leg pain for the past 3 days. She describes the pain is constant and waxes and wanes in intensity. She describes it as mild to moderate in discomfort. Her abdomen feels distended and she feels as though her legs are swollen. She denies any diarrhea or constipation, increased flatulence, nausea or vomiting, or chest pain or shortness of breath. She not had any urinary symptoms, fevers or chills, cough or dyspnea on exertion. She does not describe any orthopnea. The patient was concerned about her symptoms lasting this long and so she called her doctor who referred her to the ER for evaluation. She denies any chest pain orthopnea or paroxysmal nocturnal dyspnea. She also denies any dyspnea on exertion. Associated symptoms: Deny chest pain, confusion, diaphoresis, dyspnea, headache(s), malaise, nausea, rash, palpitations, syncope or vomiting Review of Systems Const: Denies: fever(s), chills, body aches, fatigue, malaise or diaphoresis Eyes: Denies: change in vision, blurry vision, photophobia, eye discomfort, eye discharge or eye redness ENMT: Denies: throat pain, odynophagia, hoarseness, swelling of lips/tongue, ear or mastoid pain, ear discharge, change in hearing or nasal discharge Card: Reports: edema and swelling of feet/ankles; Denies: chest pain, palpitations, irregular heart rhythm, lightheadedness, syncope, pre-syncope, dyspnea on exertion or orthopnea Resp: Denies: dyspnea, productive cough, non-productive cough, wheezing, hemoptysis or chest congestion GI: Reports: abdominal pain; Denies: nausea, vomiting, hematemesis, coffee ground emesis, heartburn, diarrhea, constipation, GI cramping, hematochezia or melena : Denies: flank pain, dysuria, urinary frequency, urinary urgency or hematuria Musc: Denies: neck pain, back pain, extremity pain, extremity swelling, joint pain, joint swelling, joint redness, joint warmth or joint stiffness Skin/Breast: Denies: rash, pruritus, erythema or skin tenderness Neuro: Denies: headache(s), numbness in extremities, weakness in extremities, sensory changes, lack of coordination, difficulty walking, dizziness, vertigo, confusion, Slurred speech present or seizure-like activity Clement/Lymph: Denies: easy bruising, easy bleeding, petechiae, purpura or enlarged lymph nodes All/Imm: Denies: urticaria, throat swelling, tongue swelling, facial swelling or acute wheezing PFSH ED PFSH: Medical History Angina pectoris Status post PCI to diagonal branch. No more angina Aortic stenosis, mild Stable CAD (coronary artery disease), citizen [place] coronary artery Diagonal branch for significant ostial and proximal diagonal lesion. It was treated with 2 overlapping drug-eluting stents HLD (hyperlipidemia) Obesity Primary osteoarthritis of both hips Varicose vein of leg Surgical History History of total hip arthroplasty Hx of appendectomy Hx of hysterectomy Hx of right mastectomy Family History Grandmother CAD (coronary artery disease) Hypertension Father CAD (coronary artery disease) Cancer Diabetes Hypertension Lung disease Mother Cancer Dementia Diabetes Hypertension Daughter Chronic kidney disease (CKD) eldest Hypertension Daughter Chronic kidney disease (CKD) third child Sister Hyperlipidemia all sisters Hypertension Lung disease Unknown Suicide maternal aunt-GSW- mid 40s Denies family history of Clotting disorder Psychiatric illness Anesthesia complication Bleeding disorder Family history of premature coronary artery disease Stroke Social History Smoking and tobacco status: former smoker Quit status (tobacco): has quit using tobacco Year quit tobacco: 2017 Second hand smoke exposure: Yes Alcohol intake: never History of recent travel: No Physical Exam Const: COMMON NORMALS: no acute distress, patient oriented x3, no limitations, healthy appearing and well nourished GENERAL APPEARANCE: cooperative, well kempt and well developed HENMT: COMMON NORMALS: normocephalic, atraumatic, external ears normal, EAC's normal and Normal external nose present HEAD & SCALP: normal to inspection, normocephalic and atraumatic FACE & SINUS: normal facial exam and face symmetric NOSE: Normal external nose present and Normal nares present EXTERNAL EAR: Yes external ears normal EXTERNAL AUDITORY CANAL: EAC's normal MOUTH: Normal oral and palatal mucosa present, lip normal and tongue normal Eye: COMMON NORMALS: Equal, round and reactive pupils present and conjunctivae normal GENERAL EYE: appearance normal, both eyes and all related structures ALIGNMENT: Yes alignment normal PERIORBITAL: periorbital findings normal EYELID: eyelids normal CONJUNCTIVA: Yes conjunctivae normal SCLERA: sclerae normal PUPIL: Yes Equal, round and reactive pupils present Neck/C-Spine: COMMON NORMALS: full ROM, no lymphadenopathy, supple, no meningeal signs and no JVD GENERAL: Yes normal visual inspection and Yes trachea midline Chest: COMMONS NORMALS: normal inspection of the chest and normal palpation of entire chest wall Resp: COMMON NORMALS: normal respiratory effort, No retractions, No use of accessory muscles and clear to auscultation bilaterally EFFORT & INSPECTION: Yes able to speak in complete sentences and Yes symmetric chest movement AUSCULTATION: clear to auscultation bilaterally, no crackles, no rales, no rhonchi and no wheezes Cardio: COMMON NORMALS: no JVD, regular rate, regular rhythm, S1 normal heart sound present and S2 normal heart sound present RATE: regular rate RHYTHM: regular rhythm HEART SOUNDS: S1 normal heart sound present, S2 normal heart sound present, no click, no gallops, no murmurs, no rubs and abnormal split S2 GI: COMMON NORMALS: Soft to palpation and No hepatosplenomegaly present PALPATION: Yes Soft to palpation, Yes Tenderness to palpation present (GI) (Mild diffusely without rebound, guarding or rigidity.), No Guarding due to palpation present (GI), No Rigid due to palpation, Yes No hepatosplenomegaly present, No Hernia present, No Palpable mass present and No Pulsatile mass present : COMMON NORMALS: Yes no CVA tenderness BLADDER/KIDNEY EXAM: Yes no CVA tenderness EXTERNAL FEMALE EXAM: No Hernia present Back/Pelvis: COMMON NORMALS: no CVA tenderness, thoracic and lumbar spine normal to inspection, no thoracic nor lumbar tenderness and thoraco-lumbar ROM normal Extremity: COMMON NORMALS: normal to inspection, full ROM, capillary refill normal, no joint enlargement and no calf tenderness NARRATIVE EXTREMITY EXAM: Minimal pretibial edema Neuro: COMMON NORMALS: patient oriented x3, CN's II-XII intact bilaterally, moves all extremities, no focal motor deficits and no sensory deficits noted MENINGEAL SIGNS: Yes no meningeal signs SPEECH: speech normal Psych: COMMON NORMALS: mental status grossly normal, Normal thought process present, cooperative, normal affect, speech normal and activity/motor behavior normal APPEARANCE: Yes well kempt SPEECH: Yes normal speech THOUGHT PROCESS: Normal thought process present Skin: COMMON NORMALS: no rashes or lesions noted, turgor normal, no jaundice, no petechiae and no mottling GENERAL SKIN EXAM: no rashes or lesions noted and turgor normal Course Vital Signs: Vital signs: Vital Signs Temperature 98.9 F 01/17/20 11:35 Pulse Rate 69 01/17/20 13:10 Respiratory Rate 20 H 01/17/20 13:10 Blood Pressure 134/68 01/17/20 12:10 Pulse Oximetry 94 01/17/20 13:10 MDM - General Adult MDM Narrative: Medical decision making narrative: Ms. Leija is a nice 69-year-old female who comes in complaining of abdominal pain described as a distention feeling and lower extremity swelling. There is no sign of congestive heart failure and her swelling in her lower extremities is minimal. Her CT scan of her abdomen pelvis is unremarkable but she does test positive for he will back to pylori. This could be causing her discomfort. The patient does not take anything for ulcers or gastroesophageal reflux. I will go ahead and start her on triple therapy for her infection and have her follow-up with her doctor for recheck. Also refer her to Dr. Antonio as an outpatient in case he believes she may need a EGD. Lab Data: Labs: Lab Results 01/17/20 01/17/20 01/17/20 Range/Units 11:50 12:00 12:00 WBC 5.7 (4.0-10.0) 10^3/ uL RBC 4.09 L (4.1-5.3) 10^6/u L Hgb 12.6 (11.5-15.3) g/dL Hct 38.0 (37.0-47.0) % MCV 92.9 (81-99) fL MCH 30.8 (28.0-34.0) pg MCHC 33.2 (30.0-36.0) g/dL RDW 13.7 (12.1-15.1) % Plt Count 315 (130-400) 10^3/c mm MPV 8.7 (7.4-10.4) fL Neut % (Auto) 71.6 % Lymph % (Auto) 18.7 % [place] % (Auto) 6.5 % Eos % (Auto) 2.3 % Baso % (Auto) 0.7 % Neut # (Auto) 4.10 (1.8-7.7) 10^3/u L Lymph # (Auto) 1.1 (0.8-4.8) 10^3/u L [place] # (Auto) 0.4 (0.2-0.9) 10^3/u L Eos # (Auto) 0.1 (0.0-0.8) 10^3/u L Baso # (Auto) 0.0 (0.0-0.1) 10^3/u L Nucleated RBC % (a uto) 0 % Nucleated RBCs # 0.0 /100WBC Sodium (136-145) mmol/L Potassium (3.5-5.1) mmol/L Chloride (98-107) mmol/L Carbon Dioxide (22-29) mmol/L Anion Gap (5-19) BUN (8-23) mg/dL Creatinine (0.5-0.9) mg/dL GFR Calculation Glucose (65-115) mg/dL Calculated Osmolal ity (285-295) mOsm/k g Calcium (8.5-10.5) mg/dL Magnesium (1.7-2.3) mg/dL Total Bilirubin (0.15-1.2) mg/dL AST (0-32) U/L ALT (0-33) U/L Alkaline Phosphata se (35-105) IU/L Troponin T Baselin e (0-10) ng/L NT-Pro-B Natriuret Pep (0-125) pg/mL Total Protein (6.6-8.7) g/dL Albumin (3.5-5.2) g/dL Globulin (1.3-4.6) g/dL Lipase (13-60) U/L Urine Color Straw (Yellow) Urine Appearance Clear (CLEAR) Urine pH 5 (5-7) Ur Specific Gravit y 1.005 (1.005-1.030) Urine Protein Neg (Negative) Urine Glucose (UA) Norm (Normal) Urine Ketones Negative (Negative) Urine Blood Neg (Negative) Urine Nitrate Negative (Negative) Urine Bilirubin Neg (NEGATIVE) Urine Urobilinogen Neg (Negative) mg/dL Ur Leukocyte Sinai ase Negative (Negative) Urine RBC 0-4 H (0-2) /hpf Urine WBC None (0-5) /hpf Ur Squamous Epith Cells None (0-5) Amorphous Sediment Not Reportable Urine Bacteria Trace (NONE) H. pylori IgG Anti body Positive H (Negative) 01/17/20 01/17/20 Range/Units 12:00 12:00 WBC (4.0-10.0) 10^3/ uL RBC (4.1-5.3) 10^6/u L Hgb (11.5-15.3) g/dL Hct (37.0-47.0) % MCV (81-99) fL MCH (28.0-34.0) pg MCHC (30.0-36.0) g/dL RDW (12.1-15.1) % Plt Count (130-400) 10^3/c mm MPV (7.4-10.4) fL Neut % (Auto) % Lymph % (Auto) % [place] % (Auto) % Eos % (Auto) % Baso % (Auto) % Neut # (Auto) (1.8-7.7) 10^3/u L Lymph # (Auto) (0.8-4.8) 10^3/u L [place] # (Auto) (0.2-0.9) 10^3/u L Eos # (Auto) (0.0-0.8) 10^3/u L Baso # (Auto) (0.0-0.1) 10^3/u L Nucleated RBC % (a uto) % Nucleated RBCs # /100WBC Sodium 136 (136-145) mmol/L Potassium 3.6 (3.5-5.1) mmol/L Chloride 96 L (98-107) mmol/L Carbon Dioxide 30 H (22-29) mmol/L Anion Gap 13.6 (5-19) BUN 13 (8-23) mg/dL Creatinine 1.0 H (0.5-0.9) mg/dL GFR Calculation Not Reportable Glucose 102 (65-115) mg/dL Calculated Osmolal ity 278 L (285-295) mOsm/k g Calcium 9.3 (8.5-10.5) mg/dL Magnesium 2.0 (1.7-2.3) mg/dL Total Bilirubin 0.3 (0.15-1.2) mg/dL AST 19 (0-32) U/L ALT 16 (0-33) U/L Alkaline Phosphata se 186 H (35-105) IU/L Troponin T Baselin e 9 (0-10) ng/L NT-Pro-B Natriuret Pep 161 H (0-125) pg/mL Total Protein 7.6 (6.6-8.7) g/dL Albumin 4.6 (3.5-5.2) g/dL Globulin 3.0 (1.3-4.6) g/dL Lipase 37 (13-60) U/L Urine Color (Yellow) Urine Appearance (CLEAR) Urine pH (5-7) Ur Specific Gravit y (1.005-1.030) Urine Protein (Negative) Urine Glucose (UA) (Normal) Urine Ketones (Negative) Urine Blood (Negative) Urine Nitrate (Negative) Urine Bilirubin (NEGATIVE) Urine Urobilinogen (Negative) mg/dL Ur Leukocyte Sinai ase (Negative) Urine RBC (0-2) /hpf Urine WBC (0-5) /hpf Ur Squamous Epith Cells (0-5) Amorphous Sediment Urine Bacteria (NONE) H. pylori IgG Anti body (Negative) Imaging Data^: CT Abd/Pel: Radiologist's impression: [place] [address] CT Scan Report Signed Patient: Karina Leija Unit #: [id number] : 1950 Age/Sex: 69 / F ADM Date: 01/17/20 Loc: ER Room/Bed: Attending Dr: Ordering Provider/Ordering MD: Jordyn Navas DO Date of Service: 01/17/20 Procedure(s): CT abdomen pelvis w con* [id number] Accession Number(s): [id number] Report Number: [id number] WS: [id number] CT ABDOMEN AND PELVIS WITH CONTRAST HISTORY: Abdominal pain TECHNIQUE: Imaging performed of the abdomen and pelvis with IV contrast. Single phase imaging of the abdomen. Coronal and sagittal reformats are submitted. All CT scans at [facility] use at least one of these dose optimization techniques: automated exposure control; mA and/or kV adjustment per patient size (includes targeted exams where dose is matched to clinical indication); or iterative reconstruction. IV CONTRAST: Visipaque 320; 95 mL IV. Oral contrast: No DLP: 917.32 mGy.cm COMPARISON: 08/14/2019 Lower thorax: Chronic emphysematous changes at the lung bases. Mildly enlarged heart. Small hiatal hernia. Liver/biliary system: Normal size with no intrahepatic dilatation. Gallbladder: Normal. No gallstones or wall thickening. No pericholecystic fluid. Pancreas: Normal. Spleen: Normal. Adrenal glands: Normal. Right kidney: Normal. Left kidney: Normal. Aorta: Moderate atherosclerosis. No aneurysm. Lymphadenopathy: None. Free fluid: None. GI tract: The appendix is not visualized. Moderate fecal retention throughout the entire colon. Similar to prior examinations. No site of obstruction. No acute diverticulitis. The distal colon is obscured by artifact from the patient's bilateral hip prostheses. Abdominal wall: Unremarkable abdominal wall. No hernia. Pelvis: Large portions of the pelvis are obscured by artifact from the bilateral hip prostheses. Distal ureters, urinary bladder and distal colon are not well visualized. Bones: No osteoblastic or osteolytic bone disease. Bilateral hip prostheses. Notified Jordyn Croft Yosef at 01/17/2020 1:[address]/CT abdomen pelvis w con* [id number] IMPRESSION: 1. Diffuse moderate constipation. No evidence for acute diverticulitis or colitis. 2. Moderate atherosclerosis aorta with no aneurysm. 3. The appendix is not visualized. Dictated By: Shea Hastings DO Signed By: Shea Hastings DO Signed Date/Time: 01/17/20 1323 DD/ 1314 EKG Data^: EKG 1: Attestation: I personally reviewed and interpreted this EKG as follows: EKG interpretation date: 01/17/20 EKG interpretation time: 12:08 Interpretation: Normal sinus rhythm at 84 beats a minute, normal axis, no acute ST-T wave changes. Computer generated interpretation: Abdomen/Pelvis CT 01/17/20 11:44 IMPRESSION: 1. Diffuse moderate constipation. No evidence for acute diverticulitis or colitis. 2. Moderate atherosclerosis aorta with no aneurysm. 3. The appendix is not visualized. Chest X-Ray 01/17/20 11:44 IMPRESSION: Chronic lung changes. No acute pulmonary disease. Discharge Plan Discharge Patient Disposition: Home Clinical Impression: H. pylori infection Abdominal pain Qualifiers: Abdominal location: upper abdomen, unspecified Qualified Code(s): R10.10 - Upper abdominal pain, unspecified Condition: Stable Prescriptions: New amoxicillin 500 mg capsule 1,000 mg PO BID 14 Days Qty: 56 RF: 0 clarithromycin 500 mg tablet 500 mg PO BID 14 Days Qty: 28 RF: 0 Protonix 40 mg tablet,delayed release (DR/EC) 40 mg PO BID 14 Days Qty: 28 RF: 0 ondansetron HCl [Zofran] 4 mg tablet 4 mg PO Q6H PRN (Reason: nausea and vomiting) Qty: 20 RF: 0 No Action ropinirole [Requip] 5 mg tablet See Rx Instructions PO BEDTIME RF: 0 metoprolol succinate 25 mg capsule,sprinkle,ER 24hr 25 mg PO DAILY 90 Days Qty: 90 RF: 3 clopidogrel 75 mg tablet 75 mg PO DAILY RF: 0 aspirin 81 mg tablet,delayed release (DR/EC) 81 mg PO DAILY RF: 0 magnesium 400 mg PO DAILY RF: 0 docusate sodium [Colace] 100 mg capsule 100 mg PO DAILY RF: 0 levetiracetam 500 mg tablet 1,000 mg PO DAILY RF: 0 omeprazole 40 mg capsule,delayed release(DR/EC) 40 mg PO DAILY RF: 0 acetaminophen [Tylenol Extra Strength] 500 mg tablet 1,000 mg PO .prn PRN (Reason: Pain) RF: 0 calcium carbonate-vitamin D3 [Calcium 600 with Vitamin D3] 600 mg(1,500mg) -500 unit capsule PO RF: 0 calcium carbonate [Calcium 500] 500 mg calcium (1,250 mg) tablet,chewable 500 mg PO DAILY RF: 0 atorvastatin 80 mg tablet 80 mg PO DAILY RF: 0 nitroglycerin 0.4 mg tablet, sublingual 0.4 mg SUBLINGUAL Q5M PRN (Reason: chest pain) Qty: 30 RF: 2 isosorbide mononitrate 60 mg Tablet Extended Release 24 Hr 60 mg PO DAILY RF: 0 hydrochlorothiazide 12.5 mg Tablet 12.5 mg PO DAILY RF: 0 sucralfate 1 gram Tablet 1 g PO DAILY RF: 0 Discharge Orders: Discharge Order (Routine); Ordered 01/17/20 Ordered By: Jordyn Navas Referrals: Justin Chapman DO [Primary Care Provider] - 1-3 days Discharge Diet: Advance as tolerated and Clear Liquid Discharge Activity: Increase activity as tolerated Patient Instructions: Helicobacter Pylori (ED), Abdominal Pain (ED) Activity Restrictions/Additional Instructions: Please return to the ER immediately for any of the signs or symptoms listed on your discharge instruction sheets, worsening/changing of your symptoms, you are not getting better as quickly as expected, or for ANY other cause or concerns. Take the medications that I have prescribed you. For the next 2 weeks while you are taking these medications stop the omeprazole and atorvastatin as there may be an interaction. You may resume them after you have finished the medicines I have given you for the next 2 weeks. Be certain to follow-up with your doctor for recheck and referral to a surgeon if he feels necessary. Return to the ER if your symptoms worsen, change or you have any other cause for concern Coding Level of Care Code ED Contracting Executive for Phillip 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
--- NOTE | 2020-01-17 11:44 | CT_ITS ---
WS: [id number] CT ABDOMEN AND PELVIS WITH CONTRAST HISTORY: Abdominal pain TECHNIQUE: Imaging performed of the abdomen and pelvis with IV contrast. Single phase imaging of the abdomen. Coronal and sagittal reformats are submitted. All CT scans at [facility] use at least one of these dose optimization techniques: automated exposure control; mA and/or kV adjustment per patient size (includes targeted exams where dose is matched to clinical indication); or iterativ e reconstruction. IV CONTRAST: Visipaque 320; 95 mL IV. Oral contrast: No DLP: 917.32 mGy.cm COMPARISON: 08/14/2019 Lower thorax: Chronic emphysematous changes at the lung bases. Mildly enlarged heart. Small hiatal he rnia. Liver/biliary system: Normal size with no intrahepatic dilatation. Gallbladder: Normal. No gallstones or wall thickening. No pericholecystic fluid. Pancreas: Normal. Spleen: Normal. Adrenal glands: Normal. Right kidney: Normal. Left kidney: Normal. Aorta: Moderate atherosclerosis. No aneurysm. Lymphadenopathy: None. Free fluid: None. GI tract: The appendix is not visualized. Moderate fecal retention throughout the entire colon. Simil ar to prior examinations. No site of obstruction. No acute diverticulitis. The distal colon is obscur ed by artifact from the patient's bilateral hip prostheses. Abdominal wall: Unremarkable abdominal wall. No hernia. Pelvis: Large portions of the pelvis are obscured by artifact from the bilateral hip prostheses. Dist al ureters, urinary bladder and distal colon are not well visualized. Bones: No osteoblastic or osteolytic bone disease. Bilateral hip prostheses. Notified Jordyn Navas at 01/17/2020 1:[address]/CT abdomen pelvis w con* [id number] IMPRESSION: 1. Diffuse moderate constipation. No evidence for acute diverticulitis or coli tis. 2. Moderate atherosclerosis aorta with no aneurysm. 3. The appendix is not visualized.
--- NOTE | 2020-01-17 11:44 | XR_ITS ---
WS: [id number] EXAM: AP CHEST: PORTABLE UPRIGHT DATE OF EXAM: 01/17/2020, 1220 hours COMPARISON: Chest x-ray from 12/24/2019 HISTORY: Patient is 69 years old with upper abdominal pain and shortness of breath.. FINDINGS: The cardiac silhouette is stable. Considered within normal limits. The mediastinal contours are si milar. Slight calcified plaque in the aorta. The pulmonary vascularity is normal. Chronic lung chris nges seen. Apical capping is seen bilaterally right worse than left. Calcified granulomas changes see n. Slight coarse markings suggesting fibrosis are seen bilaterally. Lungs are clear of consolidation. There is no effusion or pneumothorax. Bone density is decreased. Scattered degenerative changes ar e seen in the spine XR/XR chest 1V portable [id number] IMPRESSION: Chronic lung changes. No acute pulmonary disease.
--- NOTE | 2020-01-17 11:45 | ECG_ITS ---
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 Measurements Intervals [place] Rate: 84 P: 21 DC: 166 QRS: 13 QRSD: 93 T: 29 QT: 373 QTc: 443 Interpretive Statements SINUS RHYTHM POSSIBLE LEFT ATRIAL ENLARGEMENT [-0.1mV P WAVE IN V1/V2] Compared to ECG 08/16/2019 20:02:26 Incomplete right bundle-branch block no longer present Electronically Signed On 01-18-2020 19:41:41 CDT by Dutch Enciso M.D. [id number]
[2020-01-17 12:03] VITALS: RESP 18
[2020-01-17] MEDS: sodium chloride 0.9% 1,000 ML 100 ML IV (12:03)
[2020-01-17] MEDS: ondansetron 2 mg/ML SDV 2 mL 4 MG IVP ×2 (12:03→14:13)
[2020-01-17] MEDS: morphine 4 mg/mL SDV 1 mL IVP (12:03)
[2020-01-17 12:07] LABS: Basophils % 0.7 %; Eosinophils # 0.1 10^3/uL (0.0-0.8); Eosinophils % 2.3 %; Hemoglobin 12.6 g/dL (11.5-15.3); Lymphocytes # 1.1 10^3/uL (0.8-4.8); Lymphocytes % 18.7 %; Mean Corpuscular HGB Conc 33.2 g/dL (30.0-36.0); Mean Corpuscular Hemoglobin 30.8 pg (28.0-34.0); Mean Corpuscular Volume 92.9 fL (81-99); Mean Platelet Volume 8.7 fL (7.4-10.4); Monocytes # 0.4 10^3/uL (0.2-0.9); Monocytes % 6.5 %; Neutrophils % 71.6 %; Nucleated Red Blood Cells % 0 %; Platelet Count 315 10^3/cmm (130-400); Red Blood Count 4.09 10^6/uL (4.1-5.3); Red Cell Distribution Width 13.7 % (12.1-15.1); White Blood Count 5.7 10^3/uL (4.0-10.0)
[2020-01-17 12:10] VITALS: BP 134/68; PULSE 85; RESP 20; O2SAT 94
[2020-01-17 12:26] LABS: Troponin(5th) Baseline 9 ng/L (0-10)
[2020-01-17 12:27] LABS: Bilirubin Urine Neg (NEGATIVE); Blood Urine Neg (Negative); Glucose Urine UA Norm (Normal); Ketones Urine Negative (Negative); Leukocyte Esterase Urine Negative (Negative); Nitrate Urine Negative (Negative); Protein Urine Neg (Negative); Specific Gravity, Urine 1.005 (1.005-1.030); Urine Appearance Clear (CLEAR); Urine Color Straw (Yellow); Urobilinogen Urine Neg (Negative); pH Urine 5 (5-7)
[2020-01-17 12:28] LABS: Bacteria Urine TRACE; RBC Urine 0-4 /hpf (0-2)
[2020-01-17 12:29] LABS: Add Urine Culture? No
[2020-01-17 12:31] LABS: H. Pylori IgG Antibody Positive (Negative)
[2020-01-17 12:35] LABS: Alanine Aminotransferase 16 U/L (0-33); Albumin Level 4.6 g/dL (3.5-5.2); Alkaline Phosphatase 186 IU/L (35-105); Anion Gap 13.6 (5-19); Aspartate Amino Transferase 19 U/L (0-32); Blood Urea Nitrogen 13 mg/dL (8-23); Calcium 9.3 mg/dL (8.5-10.5); Carbon Dioxide 30 mmol/L (22-29); Chloride 96 mmol/L (98-107); Glucose 102 mg/dL (65-115); Lipase 37 U/L (13-60); NT Pro B Type Natriuretic Pept 161 pg/mL (0-125); Osmolality Calculated 278 mOsm/kg (285-295); Potassium 3.6 mmol/L (3.5-5.1); Sodium 136 mmol/L (136-145); Total Bilirubin 0.3 mg/dL (0.15-1.2); Total Protein 7.6 g/dL (6.6-8.7)
[2020-01-17] MEDS: iodixanol 320 mg/mL 100mL Btl IV (13:01)
[2020-01-17 13:10] VITALS: PULSE 69; RESP 20; O2SAT 94
[2020-01-17] MEDS: clarithromycin 500 mg Tablet PO (14:11)
[2020-01-17] MEDS: amoxicillin 500 mg Capsule 1000 MG PO (14:11)
[2020-01-17] MEDS: pantoprazole 40 mg SDV 80 MG IVP (14:12)
[2020-01-17 14:25] VITALS: BP 127/74; PULSE 68; RESP 18; O2SAT 98
== END 2020-01-17 14:25 | disposition home or self-care (01) ==
PROVIDERS: Emergency Provider Emergency Medicine; PCP Electrodiagnostic Medicine
DX: A04.8 Other specified bacterial intestinal infections (principal); Z79.02 Long term (current) use of antithrombotics/antiplatelets; Z79.82 Long term (current) use of aspirin; I25.10 Atherosclerotic heart disease of native coronary artery without angina pectoris; E78.5 Hyperlipidemia, unspecified; Z87.891 Personal history of nicotine dependence
CPT/HCPCS: 12345; 71045; 74177; 80053; 81001; 83690; 83735; 83880; 84484; 85025; 86677; 93005; 96360; 96361; 96374; 96375; 99283; 99284; C9113; J2270; J2405; J7030; Q9967

== ENCOUNTER 2020-01-19 10:35 | Emergency (ER) | payer MEDICARE, SELFPAY ==
[2020-01-19 10:36] VITALS: BP 153/67; PULSE 81; RESP 15; TEMP 36.9; O2SAT 96
--- NOTE | 2020-01-19 10:39 | ECG_ITS ---
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 Measurements Intervals [place] Rate: 68 P: 29 OH: 155 QRS: 19 QRSD: 94 T: 18 QT: 399 QTc: 425 Interpretive Statements SINUS RHYTHM Compared to ECG 01/17/2020 12:08:06 No significant changes Electronically Signed On 01-19-2020 18:19:35 CDT by Dutch Enciso M.D. [id number] f
--- NOTE | 2020-01-19 10:40 | XR_ITS ---
WS: [id number] EXAM: AP CHEST: PORTABLE UPRIGHT DATE OF EXAM: 01/19/2020, 1050 hours COMPARISON: Chest x-rays from 12/24/2019 and 01/17/2020 HISTORY: Patient is 69 years old with chest pain radiating into the back. History of breast cancer.. FINDINGS: The cardiac silhouette is stable. Considered within normal limits. The mediastinal contours are si milar. Slight calcified plaque in the aorta. The pulmonary vascularity is minimally congested. Sli ght chronic lung changes are again seen. Multiple overlying densities are seen overlying both sides of the chest, left worse than right which appears to have a pattern to the dots felt to represent ove rlying shirt or other garment. No effusion or pneumothorax. No acute bony abnormality is seen. XR/XR chest 1V portable [id number] IMPRESSION: Chronic lung changes. No acute pulmonary disease.
[2020-01-19 11:17] LABS: Basophils % 0.9 %; Eosinophils # 0.1 10^3/uL (0.0-0.8); Eosinophils % 2.2 %; Hemoglobin 11.9 g/dL (11.5-15.3); Lymphocytes # 0.9 10^3/uL (0.8-4.8); Lymphocytes % 19.6 %; Mean Corpuscular HGB Conc 32.2 g/dL (30.0-36.0); Mean Corpuscular Hemoglobin 30.7 pg (28.0-34.0); Mean Corpuscular Volume 95.4 fL (81-99); Mean Platelet Volume 9.1 fL (7.4-10.4); Monocytes # 0.4 10^3/uL (0.2-0.9); Monocytes % 9.1 %; Neutrophils # 3.16 10^3/uL (1.8-7.7); Nucleated Red Blood Cells % 0 %; Platelet Count 315 10^3/cmm (130-400); Red Blood Count 3.88 10^6/uL (4.1-5.3); Red Cell Distribution Width 13.8 % (12.1-15.1); White Blood Count 4.6 10^3/uL (4.0-10.0)
[2020-01-19 11:32] LABS: Slide Review Slide Review Perform
[2020-01-19 11:35] LABS: Alanine Aminotransferase 15 U/L (0-33); Albumin Level 3.8 g/dL (3.5-5.2); Alkaline Phosphatase 154 IU/L (35-105); Aspartate Amino Transferase 20 U/L (0-32); Blood Urea Nitrogen 15 mg/dL (8-23); Calcium 8.9 mg/dL (8.5-10.5); Carbon Dioxide 27 mmol/L (22-29); Chloride 98 mmol/L (98-107); Globulin 2.8 g/dL (1.3-4.6); Glucose 97 mg/dL (65-115); Lipase 36 U/L (13-60); Osmolality Calculated 276 mOsm/kg (285-295); Sodium 135 mmol/L (136-145); Total Bilirubin 0.4 mg/dL (0.15-1.2); Total Protein 6.6 g/dL (6.6-8.7)
[2020-01-19 11:35] LABS: Fibrinogen 500 mg/dL (174-498)
[2020-01-19 11:37] LABS: D Dimer 1.53 ug/mIFEU (0-0.59)
[2020-01-19 11:38] LABS: Troponin(5th) Baseline 9 ng/L (0-10)
[2020-01-19 11:40] LABS: Anion Gap 13.8 (5-19); Potassium 3.8 mmol/L (3.5-5.1)
[2020-01-19 11:50] LABS: NT Pro B Type Natriuretic Pept 449 pg/mL (0-125); Procalcitonin 0.02 ng/mL (0-0.5)
[2020-01-19 12:01] LABS: C Reactive Protein 3.5 mg/L (0.0-4.9); Lactate Dehydrogenase 166 U/L (135-214)
[2020-01-19 12:24] LABS: Lactic Sepsis W/Reflex 0.9 mmol/L (0.5-2.2)
[2020-01-19 12:38] LABS: SARS Covid-2 Antigen Negative (Negative)
--- NOTE | 2020-01-19 12:39 | ECG_ITS ---
[facility] Test Date: 2020-01-19 Pat Name: Karina Leija Department: Room: Gender: Female Customer Agent: : 1950 Requested By: Cinthia Miranda Order Number: [id number] Chloe MD: Dutch Enciso M.D. Measurements Intervals [place] Rate: 68 P: 29 DC: 155 QRS: 19 QRSD: 94 T: 18 QT: 399 QTc: 425 Interpretive Statements SINUS RHYTHM Compared to ECG 01/17/2020 12:08:06 No significant changes Electronically Signed On 01-20-2020 12:07:19 CDT by Dutch Enciso M.D. [id number]
[2020-01-19 12:48] LABS: Influenza A by IFA Negative (Negative); Influenza B by IFA Negative (Negative)
[2020-01-19 13:57] LABS: Troponin 5 2HR 11.55 ng/L (0-10); Troponin 5 2HR Delta 2.55 ABS# (0-10)
--- NOTE | 2020-01-19 14:03 | CT_ITS ---
WS: [id number] EXAM: CT PULMONARY ANGIOGRAM DATE OF EXAMINATION: 01/19/2020, 1430 hours COMPARISON: CTA exam from 08/16/2019. HISTORY: 69 years old with chest tightness, shortness of breath and nonproductive cough. History of breast can cer. Status post right mastectomy. TECHNIQUE: Transaxial computed tomography images obtained through the chest utilizing 95 mL of Omnipaque 350 IV contrast with images acquired in the pulmonary arterial phase. Images viewed in multiple windows with reconstructions. DLP: 521.[address] scans at [facility] use at least one of these dose optimization techniques: automat ed exposure control; mA and/or kV adjustment per patient size (includes targeted exams where dose is matched to clinical indication); or iterative reconstruction. FINDINGS: The pulmonary artery is well opacified. No filling defects of a pulmonary embolus are identified. Sma ll amount of postinflammatory changes seen in the right lung apex. Slight chronic lung changes are de monstrated bilaterally. Scattered calcified granulomas are demonstrated in the lungs. No area of infi ltrate is seen. No noncalcified pulmonary nodules. No effusion or pneumothorax is seen. No mediastina l mass or adenopathy is demonstrated. The heart size is within normal limits. The ascending aorta is borderline for slight dilatation. Otherwise unremarkable. Descending thoracic aorta and upper abdomin al aorta is normal in caliber and opacifies normal. Upper abdomen solid organ attenuation is unremark able. Scattered changes of arthritis are seen in the spine. CT/CT angio chest PE protcl [id number] IMPRESSION: No findings of pulmonary embolus. Slight chronic lung changes demonstrated. No consolidative infiltrate, effusion or pneumothorax. Other nonemergent findings as described in the body of the report.
[2020-01-19] MEDS: iodixanol 320 mg/mL 100mL Btl IV (14:34)
--- NOTE | 2020-01-19 14:57 | W.ED.CHESTPA ---
HPI - Chest Pain General: Chief Complaint: Chest Pain Stated Complaint: CHEST TIGHTNESS Time Seen by Provider: 01/19/20 10:39 History of Present Illness: HPI narrative: This patient is a 69-year-old female presenting today with chest tightness. She said this started yesterday and has been off and on. It is been worse this morning. She describes a feeling of her spine being paralyzed. She said this feeling runs up and down her spine and she has weakness in her arms and legs with it. She said she is never had anything like that before. She also denies having had chest tightness before. She has had 3 stents placed. She has a history of breast cancer with chemo and radiation about 2 years ago. 1 of her stents was placed 2 years ago and the other 2 were more recent than that. She is also had a stroke a few months ago. She also complains of feeling short of breath and like she cannot take a deep breath in. Her pain is worse with a deep breath. She said the pain has been getting better and worse but with no pattern to it. She denies fever. She said she has emphysema and a chronic cough. She continues to smoke. MD complaint: chest pain Pertinent past history: coronary artery disease Onset (ago): day(s) (1) Timing of current episode: episodic Onset: during rest and during exertion Pain location: other (Entire chest) Pain radiation: back Severity: moderate Quality: tightness Relieving factors: nothing Exacerbating factors: nothing Associated symptoms: Reports dyspnea; Deny abdominal pain, fever(s), nausea or vomiting Review of Systems General: Reports: 10 or more systems reviewed and unremarkable except in HPI and below Const: Reports: malaise; Denies: fever(s), chills or fatigue Eyes: Denies: change in vision ENMT: Denies: odynophagia Card: Reports: chest pain, dyspnea on exertion and orthopnea; Denies: swelling of feet/ankles Resp: Reports: dyspnea and productive cough (Chronic, due to smoking per patient) GI: Denies: abdominal pain, nausea or vomiting : Denies: flank pain or difficulty voiding Musc: Reports: back pain; Denies: neck pain Skin/Breast: Denies: rash Neuro: Reports: numbness in extremities and weakness in extremities; Denies: headache(s) Clement/Lymph: Denies: easy bruising or easy bleeding [facility] PFSH: Medical History Angina pectoris Status post PCI to diagonal branch. No more angina Aortic stenosis, mild Stable CAD (coronary artery disease), [place] coronary artery Diagonal branch for significant ostial and proximal diagonal lesion. It was treated with 2 overlapping drug-eluting stents HLD (hyperlipidemia) Obesity Primary osteoarthritis of both hips Varicose vein of leg Surgical History History of total hip arthroplasty Hx of appendectomy Hx of hysterectomy Hx of right mastectomy Family History Grandmother CAD (coronary artery disease) Hypertension Father CAD (coronary artery disease) Cancer Diabetes Hypertension Lung disease Mother Cancer Dementia Diabetes Hypertension Daughter Chronic kidney disease (CKD) eldest Hypertension Daughter Chronic kidney disease (CKD) third child Sister Hyperlipidemia all sisters Hypertension Lung disease Unknown Suicide maternal aunt-GSW- mid 40s Denies family history of Clotting disorder Psychiatric illness Anesthesia complication Bleeding disorder Family history of premature coronary artery disease Stroke Social History Smoking and tobacco status: former smoker Quit status (tobacco): has quit using tobacco Year quit tobacco: 2017 Second hand smoke exposure: Yes Alcohol intake: never History of recent travel: No Physical Exam Const: COMMON NORMALS: no acute distress, patient oriented x3, no limitations and alert GENERAL APPEARANCE: cooperative HENMT: HEAD & SCALP: normal to inspection FACE & SINUS: normal facial exam Eye: GENERAL EYE: appearance normal, both eyes and all related structures Neck/C-Spine: COMMON NORMALS: supple, no meningeal signs and no JVD Chest: COMMONS NORMALS: normal inspection of the chest Resp: COMMON NORMALS: normal respiratory effort, No use of accessory muscles and clear to auscultation bilaterally AUSCULTATION: clear to auscultation bilaterally Cardio: COMMON NORMALS: no JVD, regular rate and regular rhythm RATE: regular rate RHYTHM: regular rhythm HEART SOUNDS: Murmur heart sound present (1/6, right sternal border) systolic GI: COMMON NORMALS: Normal to inspection, nondistended, normoactive bowel sounds present, Soft to palpation and non-tender INSPECTION: Yes normal to inspection AUSCULTATION: Yes normoactive bowel sounds PALPATION: Yes Soft to palpation Back/Pelvis: COMMON NORMALS: thoracic and lumbar spine normal to inspection Extremity: COMMON NORMALS: normal to inspection Neuro: COMMON NORMALS: patient oriented x3, moves all extremities, no focal motor deficits and no sensory deficits noted SENSORIUM/ORIENTATION: Yes alert MENINGEAL SIGNS: Yes no meningeal signs Psych: COMMON NORMALS: mental status grossly normal, cooperative and normal affect Skin: COMMON NORMALS: no rashes or lesions noted and turgor normal GENERAL SKIN EXAM: no rashes or lesions noted and turgor normal Course ED course: Patient presents with some vague complaints of weakness, extremity numbness and weakness, chest pain and shortness of breath. Work-up was essentially negative. Her d-dimer was elevated but a CT of her chest was negative for PE. Troponins and EKGs were unremarkable serially. I reviewed her prior medical records and she had a presentation in July which was somewhat similar to this only with that she did have actual neuro findings. Those resolved and were actually felt to be due to orthostatic hypotension rather than stroke. The patient normally ambulates with a walker and has home health. Her sister is with her today and said she can take her home tonight to keep an eye on her. The patient also has seen Dr. 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 On evaluation the patient was eager to go home. She was sitting up on the side of the bed, bright and cheerful. I had her ambulate at the bedside initially without a walker as I was unaware that she normally used 1. She actually did pretty well. She will follow-up with her primary care for further evaluation and her sister will bring her back if she is having further symptoms. The patient is also on a regimen for H. pylori which she started on Monday. This could be contributing to her having some unusual symptoms. Vital Signs: Vital signs: Vital Signs Temperature 98.4 F 01/19/20 10:36 Pulse Rate 72 01/19/20 16:17 Respiratory Rate 15 01/19/20 10:36 Blood Pressure 148/92 01/19/20 16:17 Pulse Oximetry 96 01/19/20 10:36 MDM - Chest Pain MDM Narrative: Medical decision making narrative: Doubt stroke given the bilateral nature of the symptoms. Very non-physiologic distribution of her numbness complaints. Chest pain in the face of a history of coronary artery disease. Also some pleuritic nature with an elevated d-dimer. Rule out PE. COVID testing also obtained and was negative. Lab Data: Labs: Lab Results 01/19/20 01/19/20 01/19/20 Range/Units 10:10 10:10 11:03 WBC (4.0-10.0) 10^3/ uL RBC (4.1-5.3) 10^6/u L Hgb (11.5-15.3) g/dL Hct (37.0-47.0) % MCV (81-99) fL MCH (28.0-34.0) pg MCHC (30.0-36.0) g/dL RDW (12.1-15.1) % Plt Count (130-400) 10^3/c mm MPV (7.4-10.4) fL Neut % (Auto) % Lymph % (Auto) % Barry % (Auto) % Eos % (Auto) % Baso % (Auto) % Neut # (Auto) (1.8-7.7) 10^3/u L Lymph # (Auto) (0.8-4.8) 10^3/u L Barry # (Auto) (0.2-0.9) 10^3/u L Eos # (Auto) (0.0-0.8) 10^3/u L Baso # (Auto) (0.0-0.1) 10^3/u L Nucleated RBC % (a uto) % Nucleated RBCs # /100WBC Fibrinogen 500 H (174-498) mg/dL D-Dimer 1.53 H (0-0.59) ug/mIFE U Sodium (136-145) mmol/L Potassium (3.5-5.1) mmol/L Chloride (98-107) mmol/L Carbon Dioxide (22-29) mmol/L Anion Gap (5-19) BUN (8-23) mg/dL Creatinine (0.5-0.9) mg/dL GFR Calculation Glucose (65-115) mg/dL Calculated Osmolal ity (285-295) mOsm/k g Lactic Acid (0.5-2.2) mmol/L Calcium (8.5-10.5) mg/dL Total Bilirubin (0.15-1.2) mg/dL AST (0-32) U/L ALT (0-33) U/L Alkaline Phosphata se (35-105) IU/L Lactate Dehydrogen ase 166 (135-214) U/L Troponin T Baselin e 9 (0-10) ng/L Troponin T 120 Min [place] (0-10) ng/L Delta Troponin T (0-10) ABS# C-Reactive Protein 3.5 (0.0-4.9) mg/L NT-Pro-B Natriuret Pep 449 H (0-125) pg/mL Total Protein (6.6-8.7) g/dL Albumin (3.5-5.2) g/dL Globulin (1.3-4.6) g/dL Lipase (13-60) U/L Procalcitonin 0.02 (0-0.5) ng/mL Influenza Type A A g (Negative) Influenza Type B A g (Negative) SARS-CoV-2 Ag (Rap id) (Negative) 01/19/20 01/19/20 01/19/20 Range/Units 11:03 11:03 12:00 WBC 4.6 (4.0-10.0) 10^3/ uL RBC 3.88 L (4.1-5.3) 10^6/u L Hgb 11.9 (11.5-15.3) g/dL Hct 37.0 (37.0-47.0) % MCV 95.4 (81-99) fL MCH 30.7 (28.0-34.0) pg MCHC 32.2 (30.0-36.0) g/dL RDW 13.8 (12.1-15.1) % Plt Count 315 (130-400) 10^3/c mm MPV 9.1 (7.4-10.4) fL Neut % (Auto) 68.0 % Lymph % (Auto) 19.6 % Barry % (Auto) 9.1 % Eos % (Auto) 2.2 % Baso % (Auto) 0.9 % Neut # (Auto) 3.16 (1.8-7.7) 10^3/u L Lymph # (Auto) 0.9 (0.8-4.8) 10^3/u L Barry # (Auto) 0.4 (0.2-0.9) 10^3/u L Eos # (Auto) 0.1 (0.0-0.8) 10^3/u L Baso # (Auto) 0.0 (0.0-0.1) 10^3/u L Nucleated RBC % (a uto) 0 % Nucleated RBCs # 0.0 /100WBC Fibrinogen (174-498) mg/dL D-Dimer (0-0.59) ug/mIFE U Sodium 135 L (136-145) mmol/L Potassium 3.8 (3.5-5.1) mmol/L Chloride 98 (98-107) mmol/L Carbon Dioxide 27 (22-29) mmol/L Anion Gap 13.8 (5-19) BUN 15 (8-23) mg/dL Creatinine 1.1 H (0.5-0.9) mg/dL GFR Calculation Not Reportable Glucose 97 (65-115) mg/dL Calculated Osmolal ity 276 L (285-295) mOsm/k g Lactic Acid (0.5-2.2) mmol/L Calcium 8.9 (8.5-10.5) mg/dL Total Bilirubin 0.4 (0.15-1.2) mg/dL AST 20 (0-32) U/L ALT 15 (0-33) U/L Alkaline Phosphata se 154 H (35-105) IU/L Lactate Dehydrogen ase (135-214) U/L Troponin T Baselin e (0-10) ng/L Troponin T 120 Min [place] (0-10) ng/L Delta Troponin T (0-10) ABS# C-Reactive Protein (0.0-4.9) mg/L NT-Pro-B Natriuret Pep (0-125) pg/mL Total Protein 6.6 (6.6-8.7) g/dL Albumin 3.8 (3.5-5.2) g/dL Globulin 2.8 (1.3-4.6) g/dL Lipase 36 (13-60) U/L Procalcitonin (0-0.5) ng/mL Influenza Type A A g (Negative) Influenza Type B A g (Negative) SARS-CoV-2 Ag (Rap id) Negative (Negative) 01/19/20 01/19/20 01/19/20 Range/Units 12:00 12:00 13:14 WBC (4.0-10.0) 10^3/ uL RBC (4.1-5.3) 10^6/u L Hgb (11.5-15.3) g/dL Hct (37.0-47.0) % MCV (81-99) fL MCH (28.0-34.0) pg MCHC (30.0-36.0) g/dL RDW (12.1-15.1) % Plt Count (130-400) 10^3/c mm MPV (7.4-10.4) fL Neut % (Auto) % Lymph % (Auto) % Barry % (Auto) % Eos % (Auto) % Baso % (Auto) % Neut # (Auto) (1.8-7.7) 10^3/u L Lymph # (Auto) (0.8-4.8) 10^3/u L Barry # (Auto) (0.2-0.9) 10^3/u L Eos # (Auto) (0.0-0.8) 10^3/u L Baso # (Auto) (0.0-0.1) 10^3/u L Nucleated RBC % (a uto) % Nucleated RBCs # /100WBC Fibrinogen (174-498) mg/dL D-Dimer (0-0.59) ug/mIFE U Sodium (136-145) mmol/L Potassium (3.5-5.1) mmol/L Chloride (98-107) mmol/L Carbon Dioxide (22-29) mmol/L Anion Gap (5-19) BUN (8-23) mg/dL Creatinine (0.5-0.9) mg/dL GFR Calculation Glucose (65-115) mg/dL Calculated Osmolal ity (285-295) mOsm/k g Lactic Acid 0.9 (0.5-2.2) mmol/L Calcium (8.5-10.5) mg/dL Total Bilirubin (0.15-1.2) mg/dL AST (0-32) U/L ALT (0-33) U/L Alkaline Phosphata se (35-105) IU/L Lactate Dehydrogen ase (135-214) U/L Troponin T Baselin e (0-10) ng/L Troponin T 120 Min [place] 11.55 H (0-10) ng/L Delta Troponin T 2.55 (0-10) ABS# C-Reactive Protein (0.0-4.9) mg/L NT-Pro-B Natriuret Pep (0-125) pg/mL Total Protein (6.6-8.7) g/dL Albumin (3.5-5.2) g/dL Globulin (1.3-4.6) g/dL Lipase (13-60) U/L Procalcitonin (0-0.5) ng/mL Influenza Type A A g Negative (Negative) Influenza Type B A g Negative (Negative) SARS-CoV-2 Ag (Rap id) (Negative) Discharge Plan Discharge Patient Disposition: Home Clinical Impression: Weakness Chest pain Qualifiers: Chest pain type: unspecified Qualified Code(s): R07.9 - Chest pain, unspecified Condition: Stable Prescriptions: No Action ropinirole [Requip] 5 mg tablet See Rx Instructions PO BEDTIME RF: 0 metoprolol succinate 25 mg capsule,sprinkle,ER 24hr 25 mg PO DAILY 90 Days Qty: 90 RF: 3 clopidogrel 75 mg tablet 75 mg PO DAILY RF: 0 aspirin 81 mg tablet,delayed release (DR/EC) 81 mg PO DAILY RF: 0 magnesium 400 mg PO DAILY RF: 0 docusate sodium [Colace] 100 mg capsule 100 mg PO DAILY RF: 0 levetiracetam 500 mg tablet 1,000 mg PO DAILY RF: 0 omeprazole 40 mg capsule,delayed release(DR/EC) 40 mg PO DAILY RF: 0 acetaminophen [Tylenol Extra Strength] 500 mg tablet 1,000 mg PO .prn PRN (Reason: Pain) RF: 0 calcium carbonate-vitamin D3 [Calcium 600 with Vitamin D3] 600 mg(1,500mg) -500 unit capsule 1 cap PO DAILY RF: 0 atorvastatin 80 mg tablet 80 mg PO DAILY RF: 0 nitroglycerin 0.4 mg tablet, sublingual 0.4 mg SUBLINGUAL Q5M PRN (Reason: chest pain) Qty: 30 RF: 2 isosorbide mononitrate 60 mg Tablet Extended Release 24 Hr 60 mg PO DAILY RF: 0 hydrochlorothiazide 12.5 mg Tablet 12.5 mg PO DAILY RF: 0 amoxicillin 500 mg capsule 1,000 mg PO BID 14 Days Qty: 56 RF: 0 clarithromycin 500 mg tablet 500 mg PO BID 14 Days Qty: 28 RF: 0 pantoprazole [Protonix] 40 mg tablet,delayed release (DR/EC) 40 mg PO BID 14 Days Qty: 28 RF: 0 ondansetron HCl [Zofran] 4 mg tablet 4 mg PO Q6H PRN (Reason: nausea and vomiting) Qty: 20 RF: 0 albuterol sulfate 2.5 mg /3 mL (0.083 %) solution for nebulization See Rx Instructions .ROUTE .COMPLEX PRN (Reason: shsortness of breath) RF: 0 albuterol sulfate 90 mcg/actuation HFA aerosol inhaler 2 puff INHALATION Q4H PRN (Reason: Shortness Of Breath) RF: 0 Spiriva with HandiHaler 18 mcg capsule, w/inhalation device See Rx Instructions .ROUTE .COMPLEX RF: 0 Breo Ellipta 100-25 mcg/dose blister with device 1 inh INHALATION DAILY RF: 0 Zoloft 25 mg Tablet 25 mg PO DAILY RF: 0 sucralfate 1 gram Tablet 1 g PO DAILY RF: 0 Discharge Orders: Discharge Order (Routine); Ordered 01/19/20 Ordered By: Cinthia Newsome Referrals: Justin Chapman DO [Primary Care Provider] - Discharge Diet: Usual diet Discharge Activity: Resume usual activity Patient Instructions: Chest Pain (ED) Activity Restrictions/Additional Instructions: Stay with your sister sera. If you are feeling better in the morning you can go back to your own house. Any new, worse, concerning symptoms, please return to the emergency room immediately. Follow-up with your primary care provider. 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
[2020-01-19 16:17] VITALS: BP 146/78; BP 148/92; BP 161/78; PULSE 72; PULSE 75; PULSE 80
--- NOTE | 2020-01-19 16:39 | ECG_ITS ---
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 Measurements Intervals Logan Rate: 65 P: 37 SD: 156 QRS: 22 QRSD: 97 T: 20 QT: 409 QTc: 426 Interpretive Statements SINUS RHYTHM POSSIBLE RIGHT VENTRICULAR CONDUCTION DELAY [RSR (QR) IN V1/V2] Compared to ECG 01/19/2020 12:52:24 No significant changes Electronically Signed On 01-20-2020 12:07:14 CDT by Dutch Enciso M.D. [id number]
[2020-01-19 17:47] VITALS: BP 128/86; PULSE 70; RESP 16; O2SAT 97
[2020-01-19 18:11] LABS: Troponin 5 6HR 10.93 ng/L (0-10); Troponin 5 6HR Delta 1.93 ng/L (0-12)
== END 2020-01-19 17:47 | disposition home or self-care (01) ==
PROVIDERS: Emergency Provider Emergency Medicine; PCP Electrodiagnostic Medicine
DX: R07.9 Chest pain, unspecified (principal); R53.1 Weakness; Z79.02 Long term (current) use of antithrombotics/antiplatelets; Z79.82 Long term (current) use of aspirin; I25.10 Atherosclerotic heart disease of native coronary artery without angina pectoris; E78.5 Hyperlipidemia, unspecified; Z87.891 Personal history of nicotine dependence
CPT/HCPCS: 12345; 36415; 71045; 71275; 80053; 83605; 83615; 83690; 83880; 84145; 84484; 85025; 85378; 85384; 86140; 87040; 87426; 87804; 93005; 99284; Q9967

== ENCOUNTER → 2020-01-31 09:01 | Outpatient (BNVA) | payer MEDICARE, SELFPAY | PROVIDERS: PCP Electrodiagnostic Medicine; Visit Provider Internal Medicine | DX: Z11.59 Encounter for screening for other viral diseases (principal) | CPT/HCPCS: 87635 ==

== ENCOUNTER 2020-02-05 07:21 | Outpatient (CLI) | payer MEDICARE, SELFPAY ==
--- NOTE | 2020-02-05 08:00 | PFTS_ITS ---
Date of Study:02/05/20 Date of Dictation: 02/07/2020 MECHANICS: Forced vital capacity (FVC) is . Reduced Forced expiratory volume in one second (FEV1) is . Normal FEV1/FVC is . Normal FLOW VOLUME LOOP: Normal No postbronchodilator study to comment on bronchodilator response LUNG VOLUMES: Total lung capacity (TLC) is reduced. Residual volume (RV) is . Normal DIFFUSING CAPACITY FOR CARBON MONOXIDE: Normal . INTERPRETATION: Overall poor effort. Difficult to comment on the test. If clinically indicated repeat the study MTDD
== END 2020-02-05 07:22 | disposition home or self-care (01) ==
LOC: RT 07:21
PROVIDERS: PCP Electrodiagnostic Medicine; Visit Provider Electrodiagnostic Medicine
DX: J44.9 Chronic obstructive pulmonary disease, unspecified (principal)
CPT/HCPCS: 94010; 94726; 94729

== ENCOUNTER 2020-05-01 08:01 | Outpatient (CLI) | payer MEDICARE, SELFPAY ==
[2020-05-01 08:51] LABS: Basophils # 0.1 10^3/uL (0.0-0.1); Basophils % 0.8 %; Eosinophils # 0.1 10^3/uL (0.0-0.8); Eosinophils % 1.1 %; Hematocrit 34.8 % (37.0-47.0); Hemoglobin 11.5 g/dL (11.5-15.3); Lymphocytes # 0.9 10^3/uL (0.8-4.8); Lymphocytes % 13.7 %; Mean Corpuscular Hemoglobin 30.8 pg (28.0-34.0); Mean Corpuscular Volume 93.3 fL (81-99); Mean Platelet Volume 8.8 fL (7.4-10.4); Monocytes # 0.4 10^3/uL (0.2-0.9); Neutrophils # 5.07 10^3/uL (1.8-7.7); Neutrophils % 78.1 %; Nucleated Red Blood Cells % 0 %; Platelet Count 291 10^3/cmm (130-400); Red Blood Count 3.73 10^6/uL (4.1-5.3); Red Cell Distribution Width 13.5 % (12.1-15.1); White Blood Count 6.5 10^3/uL (4.0-10.0)
[2020-05-01 09:23] LABS: Alanine Aminotransferase 19 U/L (0-33); Albumin Level 4.1 g/dL (3.5-5.2); Alkaline Phosphatase 149 IU/L (35-105); Anion Gap 12.8 (5-19); Aspartate Amino Transferase 16 U/L (0-32); Blood Urea Nitrogen 16 mg/dL (8-23); Calcium 8.9 mg/dL (8.5-10.5); Carbon Dioxide 29 mmol/L (22-29); Chloride 95 mmol/L (98-107); Globulin 2.5 g/dL (1.3-4.6); Glucose 95 mg/dL (65-115); Osmolality Calculated 277 mOsm/kg (285-295); Potassium 3.8 mmol/L (3.5-5.1); Sodium 133 mmol/L (136-145); Total Bilirubin 0.4 mg/dL (0.15-1.2); Total Protein 6.6 g/dL (6.6-8.7)
--- NOTE | 2020-05-01 12:07 | ONC FU_ITS ---
Dr. Reeder follow up note Patient: Karina Leija Unit #: [id number]: 1950 Dicatated By: Ariana Reeder M.D.Date of Visit:May 01, 2020 Onc Med Follow-up/Prog Note History of Present Illness: Mrs Karina Leija, 70 -year-old female with a history of DCIS involving the right breast per ultrasound-guided biopsy breast on 08/24/2015. 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 As per patient she underwent routine mammogram on 08/11/2015 and it showed large area of very suspicious calcification at 12:00 position extending to the nipple. Patient was referred to surgeon but patient decided not to go for surgery or further evaluation. And about 3 months ago she noticed milky, not bloody ,discharge from her right nipple a . And also noticed lump in her right axilla and under her nipple. No other complaints, no bony pains. On 05/17/2017 she underwent right breast biopsy and right axillary lymph node biopsy and it showed infiltrating ductal carcinoma grade 3 ER/OR negative HER-2/rekha negative lymph node biopsy from right axilla was positive for metastatic disease Status post adjuvant chemotherapy with Taxotere and Cytoxan ???4 from 07/26/2017 to 10/05/2017 s/p right hip pain for which hip replacementdone in June 2018 Recently underwent right chest wall wound excision and final pathology report shows chronic inflammation. Now with good healing. Due to lower extremity swellings she underwent venous Doppler study of lower extremity on 03/08/2018 which showed no DVT CT PET scan done on 05/12/2018 showed no evidence of recurrent or residual disease. DEXA scan done on November 28, 2019 showed osteopenia Came for follow-up, denies any specific complaints except now recovering from stomach flu. But no fever chills, no nausea or vomiting, no diarrhea or constipation, no new bony pains, no jaundice, no headaches or blurred vision. Tolerating vitamin D and calcium well Medications: Aspirin 1 Tablet (of 81 mg) Tablet Oral daily, Atorvastatin Calcium 1 Tablet (of 80 mg) Oral daily, Benadryl 1 - 2 Tablet (of 25 mg) Oral q 4 to 6 hours PRN, Docusate Sodium 1 Tablet (of 100 mg) Oral daily, FeroSul 1 Tablet (of 325 (65 fe) mg) Oral b.i.d., hydroCHLOROthiazide 1 Capsule (of 12.5 mg) Oral daily, Hydrocodone-Acetaminophen 1 Tablet (of 7.5-325 mg) Oral q 4 to 6 hours PRN, Isosorbide Mononitrate 1 Tablet (of 60 mg) Oral daily, K-Tab 1 Tablet (of 10 meq) Tablet, controlled release Oral b.i.d., Lasix 1 Tablet (of 40 mg) Oral daily, LevETIRAcetam 1 Tablet (of 1000 mg) Oral b.i.d., LORazepam 0.5 - 1 Tablet (of 1 mg) Oral t.i.d. PRN, Meloxicam 1 Tablet (of 15 mg) Oral daily, Metoprolol Succinate ER 1 Tablet (of 25 mg) Tablet SR 24 HR Oral daily, Nitroglycerin 1 (0.4 mg) Tablet, sublingual Sublingual PRN, Omeprazole 1 Tablet (of 40 mg) Tablet, enteric coated Oral daily, Plavix 1 (75 mg) Tablet Oral daily, rOPINIRole HCl 1 Tablet (of 0.5 mg) Oral at bedtime, Sertraline HCl 1 Tablet (of 25 mg) Tablet Oral daily, Simvastatin 1 Tablet (of 20 mg) Oral daily, Sucralfate 1 Tablet (of 1 g) Oral t.i.d. PRN, traMADol HCl 1 Tablet (of 50 mg) Oral t.i.d. PRN Allergies: Silvadene Review of Systems: Constitutional - Appetite is fair. No fever, chills, hot flashes, or night sweats. Energy level is fair, ENMT - No sinus congestion/drainage. No mouth sores. No sore throat or difficulty swallowing, Hematologic/Lymphatic - No abnormal bruising or bleeding, Respiratory - No shortness of breath. No cough. No pleuritic pain or hemoptysis, Cardiovascular - No angina pain. No palpitations, Gastrointestinal - No nausea or vomiting. No heartburn or acid reflux. No diarrhea or constipation. No blood in the stool or black stools, Genitourinary (F) - No dysuria or hematuria. No urinary frequency. No urgency or incontinence, Musculoskeletal - Patient reports bilateral hip pain, Neurologic - No headache or dizziness. No numbness/paresthesias or other focal neurologic symptoms, Psychiatric - No anxiety or depression. No insomnia. Vital Signs: Performed on May 01, 2020 09:34 Height - 64.00 in Weight - 147.6 lbs (LOW) BSA - 1.72 sq.m BMI - 25.34 Temperature - 97.5 F (LOW) Pulse - 69 /min Respiration - 16 /min BP - 123/64 mm(hg) O2 Sat - 100 % Pain - 0 Performance Status: 1 - No physically strenuous activity, but ambulatory and able to carry out light or sedentary work (e.g. office work, light house work). (ECOG) Physical Examination: Respiratory - Lungs are clear to auscultation, Cardiovascular - Regular rate and rhythm of heart, Gastrointestinal - Soft, bowel sounds present, Extremities - Trace edema bilaterally. Lab/Imaging: Most recent lab results are not available for this patient. Impression: 1. Infiltrating ductal carcinoma of right breast status post radical mastectomy with axillary dissection done on 06/22/2017 Size of invasive component 1.1 x 1 cm, grade 3, clear surgical margins pT1c 8 out of 15 axillary lymph nodes showed metastatic disease, tumor within capsule and extracapsular lymphatic spaces. pN2 ER negative OR negative and HER-2/rekha negative Ki-67 41% Stage IIIa Status post adjuvant chemotherapy with Taxotere and Cytoxan ???4 from 07/26/2017 through 10/05/2017 2.Right hip replacement in June 2018, now left hip replacement is under consideration X-ray hip done on 11/13/2017 showed advanced degenerative arthritis both hips with complete loss of joint space and syoq-lb-ifbr articulation. Underlying sclerosis in the femoral heads suspicion for avascular necrosis CT PET scan done on 05/12/2018 showed no evidence of recurrent or residual disease Anemia normocytic normochromic etiology unclear could be underlying myelodysplasia or anemia of chronic disease patient has chronic arthritis involving bilateral hip right more than left. Resolved Plan: Discussed with patient regarding her labs white blood count 6.5 hemoglobin 11.5 hematocrit 34.8 platelets 291,000 and her DEXA scan report which showed osteopenia Clinically, patient doing reasonably well with no new signs symptoms just of recurrence of her breast cancer. Her follow-up DEXA scan should confirmed osteopenia, patient was started on vitamin D and calcium supplement and now we will consider low-dose Fosamax 35 mg p.o. every week. All the side effects possible benefits associated with the Fosamax were discussed and patient will return to clinic in 6 months with CBC CMP. Signed By: Ariana Reeder M.D. <<Signature on File>>
== END 2020-05-01 08:02 | disposition home or self-care (01) ==
LOC: ONCMED 08:05
PROVIDERS: PCP Electrodiagnostic Medicine; Visit Provider Internal Medicine Hematology & Oncology
DX: Z08 Encounter for follow-up examination after completed treatment for malignant neoplasm (principal); Z85.3 Personal history of malignant neoplasm of breast; M85.80 Other specified disorders of bone density and structure, unspecified site; M16.0 Bilateral primary osteoarthritis of hip; Z92.21 Personal history of antineoplastic chemotherapy; Z79.899 Other long term (current) drug therapy; Z86.2 Personal history of diseases of the blood and blood-forming organs and certain disorders involving the immune mechanism
CPT/HCPCS: 36415; 80053; 85025; 99214

== ENCOUNTER 2020-05-05 08:41 | Outpatient (CLI) | payer MEDICARE, SELFPAY ==
[2020-05-05 09:04] VITALS: BMI 27.4
--- NOTE | 2020-05-05 09:05 | ECG_ITS ---
[facility] Test Date: 2020-05-05 Pat Name: Karina Leija Department: Room: Gender: Female Web Communications Specialist: : 1950 Requested By: Rafa Anna Order Number: [id number] Chloe MD: RAFA ANNA Interpretive Statements NAME OF STUDY: EXERCISE SESTAMIBI STRESS TEST INDICATION: Shortness of Breath NOTE: Please note that this is the electrocardiogram portion of the Lexiscan/Sestamibi stress test. The perfusion scan will be documented separately. DATA: Baseline heart rate was 96 beats per minute. Baseline blood pressure was 137/78 millimeters of mercury. Target heart rate was 148. Maximum heart rate achieved was 167. which was 112% of the predicted target heart rate. Maximum blood pressure was 201/100 millimeters of mercury. The reason for ending the test was completion of the protocol. The patient did not experience any symptoms. ELECTROCARDIOGRAM: BASELINE: Sinus rhythm. Normal axis. Otherwise, no ST-T changes suggestive of ischemia noted. No arrhythmia noted. EXERCISE: After Lexiscan injection, no ST-T changes suggestive of ischemic noted. No arrhythmia noted. CONCLUSION: Please note due to baseline abnormality of the EKG specificity and sensitivity of the EKG portion of LexiScan MIBI stress test will be low 1. EKG not suggestive of ischemia 2. Lexiscan injection unremarkable. 3. Perfusion scan will be documented separately. Electronically Signed On 05-07-2020 18:14:59 FIREPERSON by RAFA ANNA [id number]
--- NOTE | 2020-05-05 09:06 | NMCV_ITS ---
NM jordan perf SPECT r/s* [id number] Karina Leija Age: 70 Gender: F : 1950 Exam Date: 05/05/2020 09:51 Ordering Phys: Rafa Anna MD ([email or web address]) Technologist: LUIS FERNANDO Nobles Exam Location: [facility] Indications: SOB STRESS TEST Please see separate stress test report in [facility] for full findings IMAGE PROTOCOL Rest/Stress 1 Exercise Day Radiopharmaceutical Dose (mCi) Administration Site Administered by Rest: Tc-99m 10.1 IV LUIS FERNANDO Nobles Sestamibi Stress:Tc-99m 32.1 IV LUIS FERNANDO Nobles Sestamisigifredo Rest: 05-May-2020 60 Discovery 630 Stress: 05-May-2020 45 Discovery 630 Radiopharmaceutical was injected at 100 % maximum heart rate. Images obtained in supine and prone position. SPECT RESULTS Technical Quality: Good Raw Data Analysis: Normal Image Corrections: No attenuation or motion correction applied Summed Stress Score: 2 Summed Rest Score: 2 Summed Difference Score: 1 PERFUSION FINDINGS SPECT images demonstrate homogeneous tracer distribution throughout the myocardium. FUNCTIONAL RESULTS (calculated via Gated SPECT) Stress Image LV EF (%): 68 Stress EDV (mL):69 TID: 1.05 Stress ESV (mL):22 Rest Image LV EF (%): 73 FUNCTIONAL FINDINGS: There is normal left ventricular systolic function. IMPRESSIONS Myocardial perfusion imaging is normal. EKG segment will be documented separately. Rafa Anna MD (Electronically Signed) Final Date: 05 May 2020 20:22 S
--- NOTE | 2020-05-05 10:39 | SUR.PREOP ---
Patient reports no pain or discomfort prior to the start of the procedure.
[2020-05-05 10:54] VITALS: BP 160/83; PULSE 93
== END 2020-05-05 08:42 | disposition home or self-care (01) ==
LOC: CDL 08:42
PROVIDERS: PCP Electrodiagnostic Medicine; Visit Provider Internal Medicine Cardiovascular Disease
DX: R06.02 Shortness of breath (principal)
CPT/HCPCS: 78452; 93017; A9500

== ENCOUNTER 2020-06-22 15:42 | Inpatient (IN) | payer MEDICARE, SELFPAY ==
[2020-06-22] VITALS (7 sets, daily range): BP systolic 110–135; BP diastolic 59–77; PULSE 60–78; RESP 14–25; TEMP 36.6–36.9; O2SAT 94–98; BMI 27.4
--- NOTE | 2020-06-22 15:50 | XR_ITS ---
WS: [id number] Exam: XR chest 1V portable [id number] Date/Time of Exam: 06/22/2020 3:51 PM Reason For Exam: chest pain Comparison 01/19/2020. Findings: The lungs are clear and fully expanded. Costophrenic angles are sharp. No infiltrates. Bronchovascula r relief appears normal. Cardiac silhouette is unremarkable. Bony elements are intact. XR/XR chest 1V portable [id number] IMPRESSION: Unremarkable chest radiograph.
--- NOTE | 2020-06-22 15:50 | ECG_ITS ---
[facility] Test Date: 2020-06-22 Pat Name: Karina Leija Department: Room: Gender: Female Dental Laboratory Technician Apprentice: : 1950 Requested By: Thad Miranda Order Number: [id number] Reading MD: RICKI YANG Measurements Intervals [place] Rate: 65 P: 29 [place]: 161 QRS: 25 QRSD: 88 T: 52 QT: 378 QTc: 395 Interpretive Statements SINUS RHYTHM POSSIBLE RIGHT VENTRICULAR CONDUCTION DELAY [RSR (QR) IN V1/V2] Compared to ECG 01/19/2020 16:33:17 No significant changes Electronically Signed On 06-22-2020 18:31:29 BARREL COOPER by RICKI YANG [email or web address] [email or web address] [facility] hospitalopentabscleveland [facility] [email or web address].[email or web address]/store/NU/[id number] f
--- NOTE | 2020-06-22 16:10 | ED_ITS ---
HPI - Chest Pain General: Chief Complaint: Chest Pain Stated Complaint: CHEST PAIN Time Seen by Provider: 06/22/20 15:49 History of Present Illness: HPI narrative: 70-year-old female presents emergency room with complaints of chest pain. She been having chest pain several times a day lately she had chest pain this morning that woke up around 3 AM she took a nitro and it got better it stayed resolved for the most part until around 1:00 this afternoon she another episode of chest pain he took a nitro that improved the remainder of the pain slowly defervesced over time to the point when she came here she is having no pain whatsoever. She has a known hist ory of coronary disease states she had a stress test done approximately 10 or 11 months ago. The episodes have been getting more intense and more frequent in nature they always occur while at rest. She is diabetic has a known history of heart disease with previous stents as well. MD complaint: chest pain Pertinent past history: coronary artery disease Onset (ago): week(s) Timing of current episode: episodic and increasing Prior episodes: Yes Onset: during rest Pain location: substernal and left chest Pain radiation: back Severity: moderate Quality: tightness and heaviness Relieving factors: nitroglycerin Exacerbating factors: nothing Associated symptoms: Reports dyspnea; Deny abdominal pain, diaphoresis, fever(s), leg edema, nausea, palpitations, sense of impending doom, syncope or vomiting Treatment prior to arrival: nitroglycerin Review of Systems Const: Denies: fever(s) or diaphoresis ENMT: Denies: throat pain, ear or mastoid pain, nasal discharge or nasal congestion Card: Denies: palpitations or syncope Resp: Reports: dyspnea GI: Denies: abdominal pain, nausea or vomiting : Denies: flank pain, difficulty voiding, dysuria, urinary frequency or urinary urgency Skin/Breast: Denies: rash or pruritus PFSH ED PFSH: Medical History Angina pectoris Status post PCI to diagonal branch. No more angina Aortic stenosis, mild Stable CAD (coronary artery disease), [place] coronary artery Diagonal branch for significant ostial and proximal diagonal lesion. It was treated with 2 overlapping drug-eluting stents HLD (hyperlipidemia) Obesity Primary osteoarthritis of both hips Varicose vein of leg Surgical History History of total hip arthroplasty Hx of appendectomy Hx of hysterectomy Hx of right mastectomy Family History Grandmother CAD (coronary artery disease) Hypertension Father CAD (coronary artery disease) Cancer Diabetes Hypertension Lung disease Mother Cancer Dementia Diabetes Hypertension Daughter Chronic kidney disease (CKD) eldest Hypertension Daughter Chronic kidney disease (CKD) third child Sister Hyperlipidemia all sisters Hypertension Lung disease Unknown Suicide maternal aunt-GSW- mid 40s Denies family history of Clotting disorder Psychiatric illness Anesthesia complication Bleeding disorder Family history of premature coronary artery disease Stroke Social History Smoking and tobacco status: former smoker Quit status (tobacco): has quit using tobacco Year quit tobacco: 2017 Second hand smoke exposure: Yes Alcohol intake: never History of recent travel: No Physical Exam Const: COMMON NORMALS: average body habitus, patient oriented x3 and alert GENERAL APPEARANCE: cooperative, comfortable, well kempt and well developed NUTRITIONAL APPEARANCE: obese ORIENTATION/CONSCIOUSNESS: Yes awake, Yes oriented to person and Yes oriented to place HENMT: COMMON NORMALS: normocephalic and atraumatic HEAD & SCALP: normocephalic and atraumatic Neck/C-Spine: COMMON NORMALS: no meningeal signs Resp: COMMON NORMALS: normal respiratory effort, No retractions, No use of accessory muscles and clear to auscultation bilaterally AUSCULTATION: clear to auscultation bilaterally Cardio: COMMON NORMALS: regular rate and regular rhythm RATE: regular rate RHYTHM: regular rhythm HEART SOUNDS: no murmurs GI: COMMON NORMALS: Normal to inspection, nondistended, normoactive bowel sounds present, Soft to palpation and No hepatosplenomegaly present PALPATION: Yes Soft to palpation and Yes No hepatosplenomegaly present : COMMON NORMALS: Yes no CVA tenderness BLADDER/KIDNEY EXAM: Yes no CVA tenderness Back/Pelvis: COMMON NORMALS: no CVA tenderness LUMBAR SPINE/LOWER BACK: Yes normal to inspection Extremity: COMMON NORMALS: no clubbing, cyanosis or edema, no calf tenderness and no pedal edema Neuro: COMMON NORMALS: patient oriented x3 SENSORIUM/ORIENTATION: Yes alert, Yes oriented to person and Yes oriented to place MENINGEAL SIGNS: Yes no meningeal signs Psych: APPEARANCE: Yes well kempt Skin: COMMON NORMALS: no rashes or lesions noted and turgor normal GENERAL SKIN EXAM: no rashes or lesions noted and turgor normal Course Vital Signs: Vital signs: Vital Signs Temperature 97.6 F 06/23/20 07:19 Pulse Rate 63 06/23/20 07:19 Respiratory Rate 12 06/23/20 07:19 Blood Pressure 143/74 06/23/20 07:19 Pulse Oximetry 95 06/23/20 07:19 MDM - Chest Pain MDM Narrative: Medical decision making narrative: EKG is unremarkable initial troponin is negative we will go and admit based on her increasing episodes of angina at rest relieved by nitro along with her past medical history of known coronary disease and previous stenting. She did have any sestamibi stress test in July of last year which was read as negative. Lab Data: Labs: Lab Results 06/22/20 06/22/20 06/22/20 Range/Units 16:00 16:00 16:00 WBC 5.6 (4.0-10.0) 10^3/ uL RBC 3.73 L (4.1-5.3) 10^6/u L Hgb 11.5 (11.5-15.3) g/dL Hct 35.7 L (37.0-47.0) % MCV 95.7 (81-99) fL MCH 30.8 (28.0-34.0) pg MCHC 32.2 (30.0-36.0) g/dL RDW 14.1 (12.1-15.1) % Plt Count 294 (130-400) 10^3/c mm MPV 9.7 (7.4-10.4) fL Neut % (Auto) 67.7 % Lymph % (Auto) 22.5 % [place] % (Auto) 7.3 % Eos % (Auto) 1.4 % Baso % (Auto) 0.9 % Neut # (Auto) 3.78 (1.8-7.7) 10^3/u L Lymph # (Auto) 1.3 (0.8-4.8) 10^3/u L [place] # (Auto) 0.4 (0.2-0.9) 10^3/u L Eos # (Auto) 0.1 (0.0-0.8) 10^3/u L Baso # (Auto) 0.1 (0.0-0.1) 10^3/u L Nucleated RBC % (a uto) 0 % Nucleated RBCs # 0.0 /100WBC Sodium 137 (136-145) mmol/L Potassium 4.1 (3.5-5.1) mmol/L Chloride 100 (98-107) mmol/L Carbon Dioxide 29 (22-29) mmol/L Anion Gap 12.1 (5-19) BUN 18 (8-23) mg/dL Creatinine 1.0 H (0.5-0.9) mg/dL GFR Calculation Not Reportable Glucose 89 (65-115) mg/dL Calculated Osmolal ity 285 (285-295) mOsm/k g Calcium 8.6 (8.5-10.5) mg/dL Total Bilirubin 0.2 (0.15-1.2) mg/dL AST 20 (0-32) U/L ALT 25 (0-33) U/L Alkaline Phosphata se 135 H (35-105) IU/L Troponin T Baselin e 8 (0-10) ng/L Total Protein 6.0 L (6.6-8.7) g/dL Albumin 3.6 (3.5-5.2) g/dL Globulin 2.4 (1.3-4.6) g/dL Discharge Plan Discharge Patient Disposition: Placed in Observation Admit Provider: Maninder Byrd Clinical Impression: Angina pectoris, unstable, CAD (coronary artery disease), [place] coronary artery, Aortic stenosis, mild Coding Level of Care Code ED Product Development Worker for g 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
[2020-06-22 16:46] LABS: Basophils # 0.1 10^3/uL (0.0-0.1); Basophils % 0.9 %; Eosinophils # 0.1 10^3/uL (0.0-0.8); Eosinophils % 1.4 %; Hematocrit 35.7 % (37.0-47.0); Hemoglobin 11.5 g/dL (11.5-15.3); Lymphocytes # 1.3 10^3/uL (0.8-4.8); Lymphocytes % 22.5 %; Mean Corpuscular HGB Conc 32.2 g/dL (30.0-36.0); Mean Corpuscular Hemoglobin 30.8 pg (28.0-34.0); Mean Corpuscular Volume 95.7 fL (81-99); Mean Platelet Volume 9.7 fL (7.4-10.4); Monocytes # 0.4 10^3/uL (0.2-0.9); Monocytes % 7.3 %; Neutrophils # 3.78 10^3/uL (1.8-7.7); Neutrophils % 67.7 %; Nucleated Red Blood Cells % 0 %; Platelet Count 294 10^3/cmm (130-400); Red Blood Count 3.73 10^6/uL (4.1-5.3); Red Cell Distribution Width 14.1 % (12.1-15.1); White Blood Count 5.6 10^3/uL (4.0-10.0)
[2020-06-22 17:07] LABS: Alanine Aminotransferase 25 U/L (0-33); Albumin Level 3.6 g/dL (3.5-5.2); Alkaline Phosphatase 135 IU/L (35-105); Anion Gap 12.1 (5-19); Aspartate Amino Transferase 20 U/L (0-32); Blood Urea Nitrogen 18 mg/dL (8-23); Calcium 8.6 mg/dL (8.5-10.5); Carbon Dioxide 29 mmol/L (22-29); Chloride 100 mmol/L (98-107); Globulin 2.4 g/dL (1.3-4.6); Glucose 89 mg/dL (65-115); Osmolality Calculated 285 mOsm/kg (285-295); Potassium 4.1 mmol/L (3.5-5.1); Sodium 137 mmol/L (136-145); Total Bilirubin 0.2 mg/dL (0.15-1.2)
[2020-06-22 17:10] LABS: Creatinine Clr Calc Pharmacy 49.6518
[2020-06-22 17:11] LABS: Troponin(5th) Baseline 8 ng/L (0-10)
--- NOTE | 2020-06-22 17:50 | ECG_ITS ---
[facility] Test Date: 2020-06-22 Pat Name: Karina Leija Department: Room: 112 Gender: Female Driver Engineer: : 1950 Requested By: Thad Miranda Order Number: [id number] Reading MD: RICKI YANG Measurements Intervals [place] Rate: 60 P: 38 [place]: 155 QRS: 28 QRSD: 91 T: 55 QT: 419 QTc: 421 Interpretive Statements SINUS RHYTHM POSSIBLE RIGHT VENTRICULAR CONDUCTION DELAY [RSR (QR) IN V1/V2] Compared to ECG 06/22/2020 15:49:23 No significant changes Electronically Signed On 06-22-2020 18:36:57 EARTH SCIENCES PROFESSOR by RICKI YANG [email or web address] [email or web address] Limitedlackey memorial hospitalCollaxcleveland clinic medina hospital.BuildFax/store/OM/[id number]/[id number]
--- NOTE | 2020-06-22 17:53 | P.HP_ITS ---
Providers/Chief Complaint Primary Care Provider: Justin Chapman DO Chief Complaint: CHEST PAIN History of Present Illness Karina Leija is a 70 year old female with past medical history of CAD status post stenting to LAD and diagonal branch, hypertension, hyperlipidemia, history of TIAs, history of syncope, history of right-sided breast cancer status post chemoradiation, CKD, chronic venous insufficiency, chronic normocytic anemia, depression, history of seizure disorder who presents [facility] due to complaints of chest pain. Patient has been seen by cardiology as outpatient, has had 2 stents placed in the past, recently was complaining of chest pain, and had a stress test done in April 2020 which was low probability of obstructive CAD. She is on optimal medical therapy aspirin, statin, Plavix, beta-raisa, Imdur. Patient tells me that she continues to have chest pain, with change now is that the frequency of chest pain is becoming much more frequent, much more pronounced, much more severe, radiating down both arms, describes as a sharp pain, sometimes associate with shortness of breath, no lightheadedness, dizziness, no nausea, no vomiting, no diaphoresis Review of Systems Const: Denies: fever(s), chills, fatigue or malaise Eyes: Denies: change in vision or blurry vision ENMT: Denies: nasal congestion Card: Reports: chest pain; Denies: edema or pre-syncope Resp: Denies: dyspnea, productive cough, non-productive cough or wheezing GI: Denies: abdominal pain, nausea, vomiting, hematemesis, diarrhea, constipation, hematochezia or melena : Denies: flank pain, dysuria or urinary frequency Musc: Denies: neck pain or back pain Skin/Breast: Denies: rash Neuro: Denies: headache(s), dizziness or vertigo Psych: Denies: anxiety or depression Endo: Denies: polyuria or polydipsia Medications/Allergies Home Medications Medication Instructions Recorded Confirmed Last Taken Type acetaminophen 500 mg tablet 1,000 mg PO .prn PRN tab 06/10/19 06/22/20 01/19/20 History aspirin 81 mg tablet,delayed 81 mg PO DAILY@06/10/19 06/22/20 06/22/20 History release clopidogrel 75 mg tablet 75 mg PO DAILY@06/10/19 06/22/20 06/21/20 History docusate sodium 100 mg capsule 100 mg PO BID@, cap 06/10/19 06/22/20 06/22/20 History levetiracetam 500 mg tablet 500 mg PO BID@06/10/19 06/22/20 06/22/20 History magnesium 400 mg PO DAILY@06/10/19 06/22/20 06/21/20 History omeprazole 40 mg capsule,delayed 40 mg PO DAILY@06/10/19 06/22/20 06/22/20 History release hydrochlorothiazide 12.5 mg PO DAILY@08/16/19 06/22/20 06/22/20 History atorvastatin 80 mg tablet 80 mg PO DAILY@11/07/19 06/22/20 06/21/20 History nitroglycerin 0.4 mg sublingual 0.4 mg SUBLINGUAL Q5M PRN #30 tab 11/07/19 06/22/20 06/22/20 Rx tablet ropinirole 5 mg tablet See Rx Instructions PO BEDTIME 11/07/19 06/22/20 06/21/20 History calcium carbonate 600 mg (1,500 1 cap PO DAILY@12/16/19 06/22/20 06/21/20 History mg)-vitamin D3 500 unit capsule ondansetron HCl [Zofran] 4 mg PO Q6H PRN #20 tab 01/17/20 06/22/20 Unknown Rx albuterol sulfate 2 puff INHALATION Q4H PRN 01/19/20 06/22/20 06/22/20 History albuterol sulfate See Rx Instructions .ROUTE 01/19/20 06/22/20 01/18/20 History .COMPLEX PRN fluticasone furoate-vilanterol 1 inh INHALATION DAILY@01/19/20 06/22/20 06/22/20 History [Breo Ellipta] sertraline [Zoloft] 25 mg PO DAILY@199901/19/20 06/22/20 06/21/20 History furosemide 20 mg tablet 20 mg PO DAILY PRN #90 tab 03/25/20 06/22/20 Unknown Rx hydrocodone 7.5 mg-acetaminophen 1 tab PO BID PRN 03/25/20 06/22/20 Unknown History 325 mg tablet potassium chloride 10 mEq 10 meq PO DAILY PRN #90 tab 03/25/20 06/22/20 Unknown Rx tablet,extended release alendronate 35 mg PO Q7D 06/22/20 06/22/20 06/22/20 History isosorbide mononitrate 60 mg PO DAILY@06/22/20 06/22/20 06/22/20 History metoprolol succinate 25 mg PO DAILY@06/22/20 06/22/20 06/22/20 History pantoprazole 40 mg PO DAILY 06/22/20 06/22/20 Unknown History tiotropium bromide [Spiriva with 1 cap INHALATION DAILY@06/22/20 06/22/20 06/22/20 History HandiHaler] Allergies Allergy/AdvReac Type Severity Reaction Status Date / Time No Known Allergies Allergy Verified 05/05/20 07:02 PFSH Acute PFSH: Medical History Angina pectoris Status post PCI to diagonal branch. No more angina Aortic stenosis, mild Stable CAD (coronary artery disease), [place] coronary artery Diagonal branch for significant ostial and proximal diagonal lesion. It was treated with 2 overlapping drug-eluting stents HLD (hyperlipidemia) Obesity Primary osteoarthritis of both hips Varicose vein of leg Surgical History History of total hip arthroplasty Hx of appendectomy Hx of hysterectomy Hx of right mastectomy Family History Grandmother CAD (coronary artery disease) Hypertension Father CAD (coronary artery disease) Cancer Diabetes Hypertension Lung disease Mother Cancer Dementia Diabetes Hypertension Daughter Chronic kidney disease (CKD) eldest Hypertension Daughter Chronic kidney disease (CKD) third child Sister Hyperlipidemia all sisters Hypertension Lung disease Unknown Suicide maternal aunt-GSW- mid 40s Denies family history of Clotting disorder Psychiatric illness Anesthesia complication Bleeding disorder Family history of premature coronary artery disease Stroke Social History Smoking and tobacco status: former smoker Quit status (tobacco): has quit using tobacco Year quit tobacco: 2017 Second hand smoke exposure: Yes Alcohol intake: never History of recent travel: No Vitals/I&O/Wt Last Vital Signs Temp 98.5 F 06/22/20 15:45 Pulse 63 06/22/20 16:49 Resp 22 H 06/22/20 16:49 BP 119/59 06/22/20 16:49 Pulse Ox 94 06/22/20 16:49 Weight last 48 hrs Weight 72.575 kg Physical Exam Const: COMMON NORMALS: no acute distress and patient oriented x3 HENMT: COMMON NORMALS: normocephalic HEAD & SCALP: normocephalic Neck/C-Spine: COMMON NORMALS: no JVD Resp: COMMON NORMALS: normal respiratory effort, No retractions, No use of accessory muscles and clear to auscultation bilaterally AUSCULTATION: clear to auscultation bilaterally Cardio: COMMON NORMALS: no JVD, regular rate, regular rhythm, S1 normal heart sound present and S2 normal heart sound present RATE: regular rate RHYTHM: regular rhythm HEART SOUNDS: S1 normal heart sound present and S2 normal heart sound present GI: COMMON NORMALS: Normal to inspection, nondistended, normoactive bowel sounds present, Soft to palpation, non-tender, No hepatosplenomegaly present, no masses and no bruits PALPATION: Yes Soft to palpation and Yes No hepatosplenomegaly present Extremity: COMMON NORMALS: capillary refill normal, no clubbing, cyanosis or edema, no calf tenderness and no pedal edema Neuro: COMMON NORMALS: patient oriented x3 Psych: COMMON NORMALS: mental status grossly normal Data : 06/22/20 16:00 06/22/20 16:00 A&P Assessment and plan (1) Angina pectoris: -Status post stenting to LAD, diagonal branch -Had a low probability cardiac stress test on April 2020 -Is on optimal medical therapy aspirin, statin, Plavix, Imdur, beta-raisa -Chest pain is concerning for cardiac etiology -Initial troponin negative, EKG normal sinus rhythm, no current chest pain Plan: -Admit to cardiac stepdown unit -Aspirin, statin, Plavix, Imdur, beta-raisa -Nitro as needed for chest pain -Serial EKGs, serial troponins, telemetry monitoring, monitor for chest pain -Keep patient n.p.o. midnight -Depending on further work-up, will decide if to talk to cardiology about pursuing coronary angiogram versus adding Ranexa -Lovenox for DVT prophylaxis -DNR/DNI Status: Acute (2) Aortic stenosis, mild: Status: Acute (3) CAD (coronary artery disease), [place] coronary artery: Status: Acute (4) Seizure: Status: Acute (5) Syncope: Status: Acute Qualifiers: Syncope type: unspecified Qualified Code(s): R55 - Syncope and collapse (6) Left-sided cerebrovascular accident (CVA): Status: Acute Attestations Medical Necessity Statement*: Patient requires hospitalization, outpatient with observation, for chest pain Coding Level of Care Code Acute Network Support Administrator for [facility] Fwd Diagnoses Angina pectoris I20.9 Aortic stenosis, mild I35.0 CAD (coronary artery disease), [place] coronary artery I25.10 Seizure R56.9 Syncope R55 Syncope type: unspecified Left-sided cerebrovascular accident (CVA) I63.9
[2020-06-22 18:47] LABS: Troponin 5 2HR 6.92 ng/L (0-10)
[2020-06-22 18:50] LABS: Troponin 5 2HR Delta -1.08 ABS# (0-10)
[2020-06-22] MEDS: calcium carb-vit d 600mg/400unit 1 Tablet 1 EACH PO (21:14)
[2020-06-22] MEDS: docusate sodium 100 mg Capsule PO (21:14)
[2020-06-22] MEDS: clopidogrel 75 mg Tablet PO (21:15)
[2020-06-22] MEDS: levETIRAcetam 500 mg Tablet PO (21:15)
[2020-06-22] MEDS: magnesium oxide 400 mg tablet PO (21:15)
[2020-06-22] MEDS: sertraline 50 mg Tablet 25 MG PO (21:15)
[2020-06-22] MEDS: ropinirole 0.25 mg Tablet 0.5 MG PO (21:16)
[2020-06-22] MEDS: atorvastatin 40 mg Tablet 80 MG PO (21:16)
[2020-06-22] MEDS: enoxaparin 40 mg/0.4 mL Syringe SUBCUT (21:17)
--- NOTE | 2020-06-22 21:50 | ECG_ITS ---
[facility] Test Date: 2020-06-22 Pat Name: Karina Leija Department: Room: 112 Gender: Female Goodyear Welter: : 1950 Requested By: Thad Miranda Order Number: [id number] Chloe MD: Dutch Enciso M.D. Measurements Intervals [place] Rate: 62 P: 38 [place]: 172 QRS: 23 QRSD: 92 T: 45 QT: 401 QTc: 408 Interpretive Statements SINUS RHYTHM Compared to ECG 06/22/2020 18:05:03 No significant changes Electronically Signed On 06-23-2020 17:15:35 ADMINISTRATIVE AIDE by Dutch Enciso M.D. [email or web address] county [email or web address] county [email or web address]/store/OM/[id number]
[2020-06-22 21:57] LABS: Troponin 5 6HR 7.33 ng/L (0-10)
[2020-06-23] VITALS (14 sets, daily range): BP systolic 103–144; BP diastolic 50–97; PULSE 55–81; RESP 12–23; TEMP 36.4–36.8; O2SAT 93–97
[2020-06-23] MEDS: diphenhydrAMINE 25 mg Capsule PO (01:45)
[2020-06-23 05:21] LABS: Basophils # 0.1 10^3/uL (0.0-0.1); Basophils % 1.1 %; Eosinophils # 0.1 10^3/uL (0.0-0.8); Eosinophils % 2.3 %; Hematocrit 38.2 % (37.0-47.0); Hemoglobin 12.6 g/dL (11.5-15.3); Lymphocytes # 1.2 10^3/uL (0.8-4.8); Lymphocytes % 22.2 %; Mean Corpuscular Volume 93.9 fL (81-99); Mean Platelet Volume 9.7 fL (7.4-10.4); Monocytes # 0.4 10^3/uL (0.2-0.9); Neutrophils # 3.74 10^3/uL (1.8-7.7); Nucleated Red Blood Cells % 0 %; Platelet Count 294 10^3/cmm (130-400); Red Blood Count 4.07 10^6/uL (4.1-5.3); Red Cell Distribution Width 13.8 % (12.1-15.1); White Blood Count 5.6 10^3/uL (4.0-10.0)
[2020-06-23 06:01] LABS: Alanine Aminotransferase 25 U/L (0-33); Albumin Level 4.1 g/dL (3.5-5.2); Alkaline Phosphatase 142 IU/L (35-105); Anion Gap 12.9 (5-19); Aspartate Amino Transferase 19 U/L (0-32); Blood Urea Nitrogen 16 mg/dL (8-23); Calcium 9.6 mg/dL (8.5-10.5); Carbon Dioxide 29 mmol/L (22-29); Chloride 100 mmol/L (98-107); Globulin 2.5 g/dL (1.3-4.6); Glucose 93 mg/dL (65-115); Osmolality Calculated 287 mOsm/kg (285-295); Potassium 3.9 mmol/L (3.5-5.1); Sodium 138 mmol/L (136-145); Total Bilirubin 0.4 mg/dL (0.15-1.2); Total Protein 6.6 g/dL (6.6-8.7)
[2020-06-23 06:18] LABS: Creatinine Clr Calc Pharmacy 49.6518
[2020-06-23 06:22] LABS: Magnesium 2.3 mg/dL (1.7-2.3)
[2020-06-23 06:23] LABS: Cholesterol 160 mg/dL (0-200); HDL Cholesterol 50 mg/dL (60-100); LDL Cholesterol Calculated 85 mg/dL (50-129); NT Pro B Type Natriuretic Pept 584 pg/mL (0-125); Triglycerides 125 mg/dL (0-150)
--- NOTE | 2020-06-23 08:26 | PC.NURSE ---
dr sneed at bedside and gave verbal order for patient to have cardiac diet.
[2020-06-23] MEDS: levETIRAcetam 500 mg Tablet PO ×2 (09:03→20:26)
[2020-06-23] MEDS: pantoprazole DR 40 mg Tablet PO (09:03)
[2020-06-23] MEDS: docusate sodium 100 mg Capsule PO ×2 (09:03→20:27)
[2020-06-23] MEDS: aspirin 81 mg EC Tablet PO (09:03)
[2020-06-23] MEDS: metoprolol succinate ER (24 HR) 25 mg Tablet PO (09:03)
[2020-06-23] MEDS: hydroCHLOROthiazide 25 mg Tablet 12.5 MG PO (09:03)
[2020-06-23] MEDS: isosorbide mononitrate ER 60 mg Tablet PO (09:03)
--- NOTE | 2020-06-23 09:08 | PC.CHAP ---
Pastoral Care Encounter/Spiritual Assessment Type of Contact [] Declined landscape architect and planner visit [] Patient/Family/Request visit [] Outpatient visit [] Follow-up visit [] Physician referral [] Code/Alert [x] Routine visit [] Staff referral [] Actively dying [] Patient sleeping [] Family support [] [] Out of room [] Palliative care [] [] Receiving care in room [] Pre-surgical visit [] Trauma [] Long length of stay [] ICU visit [] Other: Relational/Emotional Strength [] Patient feels connected with others/family/visitors/staff [] Distress [] Loneliness/isolation [] Abandonment Spirituality of Patient [x] Person of Sarah [] Attends Adventism of their Sarah [] Believes in Prayer [] Reads Bible or Advent materials [] There are Spiritual issues to be addressed Loader Interventions [x] Prayer [x] Active listening [x] Non-anxious presence [x] Spiritual/emotional support [] Crisis/trauma care [] Spiritual counseling [] Bereavement support [] Provided bereavement packet [] Provided Bible/devotional materials [] Provided toy/stuffed animal, coloring book to patient or family member [] Provided Communion [] Anointing/[place] [] Salvation [x] Completed spiritual assessment [] Other: Impact on Illness or Injury [] Angry [] Fearful [] Anxious [] Often cries [] Exhaustion [] Unable to work [] Unable to attend latter-day [] Unable to walk/stand [] Unable to read [] Unable to drive [] Unable to eat/drink [] Unable to sleep [] Unable to be with family [] Patient intubated [] Other: Summary delightful patient.. feeling better, but issues not addressed yet... Time spent with patient 10 min
[2020-06-23] MEDS: albuterol 8 gm MDI 2 PUFF INHALATION ×2 (10:17→14:37)
--- NOTE | 2020-06-23 11:23 | P.CONIM_ITS ---
Providers/Reason For Consult Consulting Physican/Specialty*: Cardiology Reason for Consult*: Chest pain, coronary disease Attending Physician: Maninder Byrd MD Primary Care Provider: Justin Chapman DO History of Present Illness History of Present Illness Karina Leija is a 70 year old female with medical history significant for coronary artery disease status post stent to LAD and diagonal branch, hypertension hyperlipidemia history of anemia chronic kidney disease who is known to me from my clinic has been struggling with chest pain or worsening of shortness of breath despite of optimal medical management underwent stress test which did not show significant ischemia. Her medicines were further optimized despite of that for the past 6 weeks patient continues to do worse with chest pain and now admitted through the ER for worsening episodes of waxing and waning chest pain pattern. She admits that corrector of the pain is similar when she had her stents. She thinks that mild to moderate exertion brings her chest pain on occasionally she had a at rest now. She admits that it improve after taking nitroglycerin. She denies PND orthopnea presyncope syncope. Review of Systems Const: Denies: fever(s), chills, fatigue, malaise or diaphoresis Eyes: Denies: change in vision, blurry vision or photophobia ENMT: Denies: throat pain, enlarged tonsils, ear or mastoid pain, nasal discharge or nasal congestion Card: Reports: chest pain; Denies: palpitations, edema, syncope or pre-syncope Resp: Denies: dyspnea, productive cough, non-productive cough or wheezing GI: Denies: abdominal pain, nausea, vomiting, hematemesis, diarrhea, constipation, hematochezia or melena : Denies: flank pain, difficulty voiding, dysuria, urinary frequency or urinary urgency Musc: Denies: neck pain, back pain or joint warmth Skin/Breast: Denies: rash or pruritus Neuro: Denies: headache(s), dizziness or vertigo Psych: Denies: anxiety or depression Endo: Denies: polyuria or polydipsia All/Imm: Denies: acute wheezing Meds/Allergies Home Medications and Allergies Home Medications Medication Instructions Recorded Confirmed Last Taken Type acetaminophen 500 mg tablet 1,000 mg PO .prn PRN tab 06/10/19 06/22/20 01/19/20 History aspirin 81 mg tablet,delayed 81 mg PO DAILY@06/10/19 06/22/2025/21 History release clopidogrel 75 mg tablet 75 mg PO DAILY@06/10/19 06/22/20 06/21/20 History docusate sodium 100 mg capsule 100 mg PO BID@ cap 06/10/19 06/22/20 06/22/20 History levetiracetam 500 mg tablet 500 mg PO BID@06/10/19 06/22/20 06/22/20 History magnesium 400 mg PO DAILY@06/10/19 06/22/20 06/21/20 History omeprazole 40 mg capsule,delayed 40 mg PO DAILY@ cap 06/10/19 06/22/20 06/22/20 History release hydrochlorothiazide 12.5 mg PO DAILY@08/16/19 06/22/20 06/22/20 History atorvastatin 80 mg tablet 80 mg PO DAILY@11/07/19 06/22/20 06/21/20 History nitroglycerin 0.4 mg sublingual 0.4 mg SUBLINGUAL Q5M PRN #30 tab 11/07/19 06/22/20 06/22/20 Rx tablet ropinirole 5 mg tablet See Rx Instructions PO BEDTIME 11/07/19 06/22/20 06/21/20 History calcium carbonate 600 mg (1,500 1 cap PO DAILY@12/16/19 06/22/20 06/21/20 History mg)-vitamin D3 500 unit capsule ondansetron HCl [Zofran] 4 mg PO Q6H PRN #20 tab 01/17/20 06/22/20 Unknown Rx albuterol sulfate 2 puff INHALATION Q4H PRN 01/19/20 06/22/20 06/22/20 History albuterol sulfate See Rx Instructions .ROUTE 01/19/20 06/22/20 01/18/20 History .COMPLEX PRN fluticasone furoate-vilanterol 1 inh INHALATION DAILY@01/19/20 06/22/20 06/22/20 History [Breo Ellipta] sertraline [Zoloft] 25 mg PO DAILY@199901/19/20 06/22/20 06/21/20 History furosemide 20 mg tablet 20 mg PO DAILY PRN #90 tab 03/25/20 06/22/20 Unknown Rx hydrocodone 7.5 mg-acetaminophen 1 tab PO BID PRN 03/25/20 06/22/20 Unknown History 325 mg tablet potassium chloride 10 mEq 10 meq PO DAILY PRN #90 tab 03/25/20 06/22/20 Unknown Rx tablet,extended release alendronate 35 mg PO Q7D 06/22/20 06/22/20 06/22/20 History isosorbide mononitrate 60 mg PO DAILY@06/22/20 06/22/20 06/22/20 History metoprolol succinate 25 mg PO DAILY@06/22/20 06/22/20 06/22/20 History pantoprazole 40 mg PO DAILY 06/22/20 06/22/20 Unknown History tiotropium bromide [Spiriva with 1 cap INHALATION DAILY@06/22/20 06/22/20 06/22/20 History HandiHaler] Allergies Allergy/AdvReac Type Severity Reaction Status Date / Time No Known Allergies Allergy Verified 05/05/20 07:02 Current Medications Current Medications Generic Name Dose Route Start Last Admin Trade Name Freq PRN Reason Stop Dose Admin Albuterol Sulfate 2 puff 06/22/20 18:39 06/23/20 10:17 Albuterol 8 Gm Mdi INHALATION 2 puff Q4H.RESPIRATORY PRN Administration Shortness Of Breath Aspirin 81 mg 06/23/20 09:00 06/23/20 09:03 Aspirin 81 Mg Ec Tablet PO 81 mg DAILY@09 NIKOLAI Administration Atorvastatin Calcium 80 mg 06/22/20 20:00 06/22/20 21:16 Atorvastatin 40 Mg Tablet PO 80 mg DAILY@20 NIKOLAI Administration Calcium Carbonate 1 each 06/22/20 20:00 06/22/20 21:14 Calcium Carb-Vit D 600mg/400unit 1 Tablet PO 1 each DAILY@20 NIKOLAI Administration Clopidogrel Bisulfate 75 mg 06/22/20 20:00 06/22/20 21:15 Clopidogrel 75 Mg Tablet PO 75 mg DAILY@20 NIKOLAI Administration Docusate Sodium 100 mg 06/22/20 20:00 06/23/20 09:03 Docusate Sodium 100 Mg Capsule PO 100 mg BID@09,20 NIKOLAI Administration Enoxaparin Sodium 40 mg 06/22/20 20:00 06/22/20 21:17 Enoxaparin 40 Mg/0.4 Ml Syringe SUBCUT 40 mg Q24H NIKOLAI Administration Hydrochlorothiazide 12.5 mg 06/23/20 09:00 06/23/20 09:03 Hydrochlorothiazide 25 Mg Tablet PO 12.5 mg DAILY@ NIKOLAI Administration Isosorbide Mononitrate 60 mg 06/23/20 09:00 06/23/20 09:03 Isosorbide Mononitrate Er 60 Mg Tablet PO 60 mg DAILY@ NIKOLAI Administration Levetiracetam 500 mg 06/22/20 20:00 06/23/20 09:03 Levetiracetam 500 Mg Tablet PO 500 mg BID@ NIKOLAI Administration Magnesium Oxide 400 mg 06/22/20 20:00 06/22/20 21:15 Magnesium Oxide 400 Mg Tablet PO 400 mg DAILY@ NIKOLAI Administration Metoprolol Succinate 25 mg 06/23/20 09:00 06/23/20 09:03 Metoprolol Succinate Er (24 Hr) 25 Mg Tablet PO 25 mg DAILY NIKOLAI Administration Pantoprazole Sodium 40 mg 06/23/20 09:00 06/23/20 09:[address] 40 Mg Tablet PO 40 mg DAILY NIKOLAI Administration Ropinirole HCl 0.5 mg 06/22/20 21:00 06/22/20 21:16 Ropinirole 0.25 Mg Tablet PO 0.5 mg BEDTIME NIKOLAI Administration Sertraline HCl 25 mg 06/22/20 20:00 06/22/20 21:15 Sertraline 50 Mg Tablet PO 25 mg DAILY@1999 NIKOLAI Administration Tiotropium [place] 18 mcg 06/23/20 08:00 06/23/20 10:18 Tiotropium 18 Mcg Mdi INHALATION 1 inhalation DAILY.RESPIRATORY NIKOLAI Administration PFSH Acute PFSH: Medical History (Updated 06/23/20 @ 19:39 by Rafa Anna MD) Angina pectoris Status post PCI to diagonal branch. No more angina Aortic stenosis, mild Stable CAD (coronary artery disease), [place] coronary artery Diagonal branch for significant ostial and proximal diagonal lesion. It was treated with 2 overlapping drug-eluting stents HLD (hyperlipidemia) Obesity Primary osteoarthritis of both hips Varicose vein of leg Surgical History History of total hip arthroplasty Hx of appendectomy Hx of hysterectomy Hx of right mastectomy Family History Grandmother CAD (coronary artery disease) Hypertension Father CAD (coronary artery disease) Cancer Diabetes Hypertension Lung disease Mother Cancer Dementia Diabetes Hypertension Daughter Chronic kidney disease (CKD) eldest Hypertension Daughter Chronic kidney disease (CKD) third child Sister Hyperlipidemia all sisters Hypertension Lung disease Unknown Suicide maternal aunt-GSW- mid 40s Denies family history of Clotting disorder Psychiatric illness Anesthesia complication Bleeding disorder Family history of premature coronary artery disease Stroke Social History Smoking and tobacco status: former smoker Quit status (tobacco): has quit using tobacco Year quit tobacco: 2017 Second hand smoke exposure: Yes Alcohol intake: never History of recent travel: No Dietary Habits: Current diet type/program: regular Caffeine: Yes Exercise: What type of physical activity do you participate in?: none Safety: Seatbelt use: always Drive intoxicated or ride with intoxicated helper/driver?: never Home Safety: Working smoke detector in home: Yes Fire extinguisher in home: Yes Carbon monoxide detector in home: No Firearms in home: No Personal Safety: Do you feel safe at home: Yes Victim of physical abuse: No Victim of emotional abuse: No Victim of sexual abuse: No Would you like help information on resources?: No Vitals/I&O/Wt Last Vital Signs Temp 97.6 F 06/23/20 07:19 Pulse 76 06/23/20 10:24 Resp 15 06/23/20 10:24 BP 143/74 06/23/20 07:19 Pulse Ox 96 06/23/20 10:24 Weight last 48 hrs Weight 160 lb Physical Exam Narrative: EXAM NARRATIVE: GENERAL: Patient is alert, awake and oriented x3. NECK: No jugular vein distension. HEENT: No cyanosis. No icterus. No pallor. HEART: Regular S1 and S2. No murmur, rub or gallop. LUNGS: Clear to auscultate bilaterally. ABDOMEN: Soft, nontender and nondistended. Positive bowel sounds. No guarding, rebound or tenderness. CENTRAL NERVOUS SYSTEM: Grossly nonfocal. EXTREMITIES: Lower extremities without edema bilaterally. A&P Assessment and plan (1) Angina pectoris: Worsening of chest pain with shortness of breath which has increased over the period of last 4 weeks despite of optimization of medicine is suspicious for unstable angina patient has history of coronary artery disease with stent to LAD and diagonal branch in the past. We would therefore proceed with left heart cath and PCI if indicated. Patient has been explained all risk benefit and alternative for the procedure she would like to proceed with it. We have problem with our Remote Medical Coder and I am not sure whether Remote Medical Coder will be functional tomorrow we will continue to manage her medically until then. Continue aspirin statin beta-raisa nitroglycerin isosorbide mononitrate. Continue Lovenox or heparin for anticoagulation Status: Acute (2) CAD (coronary artery disease), [place] coronary artery: As above we will proceed with a left heart catheter possible unstable angina. Status: Acute Qualifiers: [place] vs. transplanted heart: [place] heart Associated angina: with unstable angina Qualified Code(s): I25.110 - Atherosclerotic heart disease of [place] coronary artery with unstable angina pectoris (3) Aortic stenosis, mild: Remained stable. Continue medicine Status: Acute Coding Level of Care Code New Pt Acute Interventional Radiology Tech for [facility] Patient Type New History Detailed Exam Detailed Medical Decision Making Moderate Complexity Diagnoses Angina pectoris I20.9 CAD (coronary artery disease), [place] coronary artery I25.110 [place] vs. transplanted heart: [place] heart Associated angina: with unstable angina Aortic stenosis, mild I35.0
--- NOTE | 2020-06-23 11:54 | P.PN_ITS ---
Subjective Subjective: Interval history: Patient is doing well this morning, no repeat episodes of chest pain overnight, no nausea, no vomiting, no diaphoresis, no shortness of breath Vitals/I&O/Wt Last Vital Signs Temp 97.6 F 06/23/20 07:19 Pulse 76 06/23/20 10:24 Resp 15 06/23/20 10:24 BP 143/74 06/23/20 07:19 Pulse Ox 96 06/23/20 10:24 Weight last 48 hrs Weight 72.575 kg Physical Exam Const: COMMON NORMALS: no acute distress and patient oriented x3 HENMT: COMMON NORMALS: normocephalic HEAD & SCALP: normocephalic Neck/C-Spine: COMMON NORMALS: no JVD Resp: COMMON NORMALS: normal respiratory effort, No retractions, No use of accessory muscles and clear to auscultation bilaterally AUSCULTATION: clear to auscultation bilaterally Cardio: COMMON NORMALS: no JVD, regular rate, regular rhythm, S1 normal heart sound present and S2 normal heart sound present RATE: regular rate RHYTHM: regular rhythm HEART SOUNDS: S1 normal heart sound present and S2 normal heart sound present GI: COMMON NORMALS: Normal to inspection, nondistended, normoactive bowel sounds present, Soft to palpation, non-tender, No hepatosplenomegaly present, no masses and no bruits PALPATION: Yes Soft to palpation and Yes No hepatosplenomegaly present Extremity: COMMON NORMALS: capillary refill normal, no clubbing, cyanosis or edema, no calf tenderness and no pedal edema Neuro: COMMON NORMALS: patient oriented x3 Psych: COMMON NORMALS: mental status grossly normal Data : 06/23/20 04:20 06/23/20 04:20 A&P Assessment and plan (1) Angina pectoris: -Status post stenting to LAD, diagonal branch -Had a low probability cardiac stress test on April 2020 -Is on optimal medical therapy aspirin, statin, Plavix, Imdur, beta-raisa -Chest pain is concerning for cardiac etiology -Troponin series without any significant delta, EKG normal sinus rhythm, no current chest pain Plan: -Admit to cardiac stepdown unit -Aspirin, statin, Plavix, Imdur, beta-raisa -Nitro as needed for chest pain - telemetry monitoring, monitor for chest pain -Cardiac diet, n.p.o. midnight -I have consulted the cardiology team for potential coronary angiogram -Lovenox for DVT prophylaxis -DNR/DNI Status: Acute (2) Aortic stenosis, mild: Status: Acute (3) CAD (coronary artery disease), [place] coronary artery: Status: Acute (4) Seizure: Status: Acute (5) Syncope: Status: Acute Qualifiers: Syncope type: unspecified Qualified Code(s): R55 - Syncope and collapse (6) Left-sided cerebrovascular accident (CVA): Status: Acute Attestations Medical Necessity Statement*: Patient requires hospitalization for recurrent angina Coding Level of Care Code Acute Equipment Operator Wage Hand for [facility] Fwd Diagnoses Angina pectoris I20.9 Aortic stenosis, mild I35.0 CAD (coronary artery disease), [place] coronary artery I25.10 Seizure R56.9 Syncope R55 Syncope type: unspecified Left-sided cerebrovascular accident (CVA) I63.9
[2020-06-23] MEDS: HYDROcodone-acetaminophen 7.5-325 mg Tablet 1 TAB PO (15:00)
--- NOTE | 2020-06-23 17:40 | PC.NURSE ---
patient had an uneventful shift. patient is sitting in bed eating dinner at this time. no needs identified at this time. call light within reach.
[2020-06-23] MEDS: magnesium oxide 400 mg tablet PO (20:26)
[2020-06-23] MEDS: ropinirole 0.25 mg Tablet 0.5 MG PO (20:26)
[2020-06-23] MEDS: calcium carb-vit d 600mg/400unit 1 Tablet 1 EACH PO (20:26)
[2020-06-23] MEDS: sertraline 50 mg Tablet 25 MG PO (20:27)
[2020-06-23] MEDS: clopidogrel 75 mg Tablet PO (20:27)
[2020-06-23] MEDS: atorvastatin 40 mg Tablet 80 MG PO (20:27)
[2020-06-23] MEDS: enoxaparin 40 mg/0.4 mL Syringe SUBCUT (20:27)
--- NOTE | 2020-06-23 20:37 | PC.NURSE ---
Received report from Zahira Mc. Patient resting in bed. Patient denies chest pain at this time. No distress osbserved.
[2020-06-24] VITALS (15 sets, daily range): BP systolic 104–144; BP diastolic 56–72; PULSE 53–78; RESP 12–22; TEMP 36.4–36.8; O2SAT 91–96
[2020-06-24 05:09] LABS: Basophils # 0.1 10^3/uL (0.0-0.1); Basophils % 1.1 %; Eosinophils # 0.1 10^3/uL (0.0-0.8); Eosinophils % 2.8 %; Hematocrit 37.3 % (37.0-47.0); Hemoglobin 12.2 g/dL (11.5-15.3); Lymphocytes # 1.1 10^3/uL (0.8-4.8); Lymphocytes % 23.6 %; Mean Corpuscular HGB Conc 32.7 g/dL (30.0-36.0); Mean Corpuscular Hemoglobin 31.3 pg (28.0-34.0); Mean Corpuscular Volume 95.6 fL (81-99); Mean Platelet Volume 9.6 fL (7.4-10.4); Monocytes # 0.4 10^3/uL (0.2-0.9); Monocytes % 7.9 %; Neutrophils # 3.04 10^3/uL (1.8-7.7); Neutrophils % 64.6 %; Nucleated Red Blood Cells % 0 %; Platelet Count 269 10^3/cmm (130-400); Red Cell Distribution Width 14.3 % (12.1-15.1); White Blood Count 4.7 10^3/uL (4.0-10.0)
[2020-06-24 05:32] LABS: Alanine Aminotransferase 19 U/L (0-33); Albumin Level 3.8 g/dL (3.5-5.2); Alkaline Phosphatase 131 IU/L (35-105); Anion Gap 12.2 (5-19); Aspartate Amino Transferase 16 U/L (0-32); Blood Urea Nitrogen 18 mg/dL (8-23); Calcium 8.9 mg/dL (8.5-10.5); Carbon Dioxide 30 mmol/L (22-29); Chloride 95 mmol/L (98-107); Creatinine Clr Calc Pharmacy 49.6518; Globulin 2.7 g/dL (1.3-4.6); Glucose 96 mg/dL (65-115); Osmolality Calculated 278 mOsm/kg (285-295); Potassium 4.2 mmol/L (3.5-5.1); Sodium 133 mmol/L (136-145); Total Bilirubin 0.4 mg/dL (0.15-1.2); Total Protein 6.5 g/dL (6.6-8.7)
[2020-06-24 05:45] LABS: Magnesium 2.1 mg/dL (1.7-2.3); NT Pro B Type Natriuretic Pept 327 pg/mL (0-125); Phosphorus 4.6 mg/dL (2.5-4.5)
[2020-06-24] MEDS: albuterol 8 gm MDI 2 PUFF INHALATION ×2 (07:47→19:20)
[2020-06-24] MEDS: isosorbide mononitrate ER 60 mg Tablet PO (08:44)
[2020-06-24] MEDS: docusate sodium 100 mg Capsule PO ×2 (08:44→20:29)
[2020-06-24] MEDS: pantoprazole DR 40 mg Tablet PO (08:44)
[2020-06-24] MEDS: hydroCHLOROthiazide 25 mg Tablet 12.5 MG PO (08:44)
[2020-06-24] MEDS: levETIRAcetam 500 mg Tablet PO ×2 (08:44→20:29)
[2020-06-24] MEDS: aspirin 81 mg EC Tablet PO (08:44)
[2020-06-24] MEDS: metoprolol succinate ER (24 HR) 25 mg Tablet PO (08:44)
[2020-06-24] MEDS: sodium chloride 0.9% 1,000 ML 50 ML IV (09:46)
--- NOTE | 2020-06-24 10:15 | PC.NURSE ---
patient resting in bed. consent signed and fluids started for cath procedure.
--- NOTE | 2020-06-24 11:50 | P.PN_ITS ---
Subjective Subjective: Interval history: Patient was examined this morning, no episodes of chest pain overnight, no fevers, chills, nausea, vomiting, no shortness of breath, is awaiting her cardiac catheterization Vitals/I&O/Wt Last Vital Signs Temp 97.7 F 06/24/20 07:20 Pulse 74 06/24/20 08:31 Resp 16 06/24/20 08:31 BP 144/72 06/24/20 08:31 Pulse Ox 94 06/24/20 08:31 06/23/20 06/24/20 06/24/20 22:59 06:59 14:59 Intake Total 240 / 600 Balance 240 / 600 Weight last 48 hrs Weight 72.575 kg Physical Exam Const: COMMON NORMALS: no acute distress and patient oriented x3 HENMT: COMMON NORMALS: normocephalic HEAD & SCALP: normocephalic Neck/C-Spine: COMMON NORMALS: no JVD Resp: COMMON NORMALS: normal respiratory effort, No retractions, No use of accessory muscles and clear to auscultation bilaterally AUSCULTATION: clear to auscultation bilaterally Cardio: COMMON NORMALS: no JVD, regular rate, regular rhythm, S1 normal heart sound present and S2 normal heart sound present RATE: regular rate RHYTHM: regular rhythm HEART SOUNDS: S1 normal heart sound present and S2 normal heart sound present GI: COMMON NORMALS: Normal to inspection, nondistended, normoactive bowel sounds present, Soft to palpation, non-tender, No hepatosplenomegaly present, no masses and no bruits PALPATION: Yes Soft to palpation and Yes No hepatosplenomegaly present Extremity: COMMON NORMALS: capillary refill normal, no clubbing, cyanosis or edema, no calf tenderness and no pedal edema Neuro: COMMON NORMALS: patient oriented x3 Psych: COMMON NORMALS: mental status grossly normal Data : 06/24/20 04:27 06/24/20 04:27 A&P Assessment and plan (1) Angina pectoris: -Status post stenting to LAD, diagonal branch -Had a low probability cardiac stress test on April 2020 -Is on optimal medical therapy aspirin, statin, Plavix, Imdur, beta-raisa -Chest pain is concerning for cardiac etiology -Troponin series without any significant delta, EKG normal sinus rhythm, no current chest pain Plan: -Admit to cardiac stepdown unit -Aspirin, statin, Plavix, Imdur, beta-raisa -Nitro as needed for chest pain - telemetry monitoring, monitor for chest pain -Cardiac diet, n.p.o. midnight -will have a coronary angiogram -Cardiology on consult -Lovenox for DVT prophylaxis -DNR/DNI Status: Acute (2) Aortic stenosis, mild: Status: Acute (3) CAD (coronary artery disease), [place] coronary artery: Status: Acute Qualifiers: [place] vs. transplanted heart: [place] heart Associated angina: with unstable angina Qualified Code(s): I25.110 - Atherosclerotic heart disease of [place] coronary artery with unstable angina pectoris (4) Seizure: Status: Acute (5) Syncope: Status: Acute Qualifiers: Syncope type: unspecified Qualified Code(s): R55 - Syncope and collapse (6) Left-sided cerebrovascular accident (CVA): Status: Acute Attestations Medical Necessity Statement*: Patient requires hospitalization for angina, requiring cardiac catheterization Coding Level of Care Code Acute Test Man for [facility] Diagnoses Angina pectoris I20.9 Aortic stenosis, mild I35.0 CAD (coronary artery disease), [place] coronary artery I25.110 [place] vs. transplanted heart: [place] heart Associated angina: with unstable angina Seizure R56.9 Syncope R55 Syncope type: unspecified Left-sided cerebrovascular accident (CVA) I63.9
--- NOTE | 2020-06-24 12:00 | PC.NURSE ---
fluids dc due to not going for cardiac cath today.
--- NOTE | 2020-06-24 18:08 | PM.PN ---
Subjective Subjective: Interval history: Denies any chest pain appear to be stable for now. Medications: Reviewed: Yes Vitals/I&O/Wt Last Vital Signs Temp 97.6 F 06/24/20 15:05 Pulse 67 06/24/20 15:05 Resp 20 H 06/24/20 15:05 BP 107/61 06/24/20 15:05 Pulse Ox 95 06/24/20 15:05 06/24/20 06/24/20 06/24/20 06:59 14:59 22:59 Intake Total 351.667 / 351.667 Balance 351.667 / 351.667 Physical Exam Narrative: EXAM NARRATIVE: GENERAL: Patient is alert, awake and oriented x3. NECK: No jugular vein distension. HEENT: No cyanosis. No icterus. No pallor. HEART: Regular S1 and S2. No murmur, rub or gallop. LUNGS: Clear to auscultate bilaterally. ABDOMEN: Soft, nontender and nondistended. Positive bowel sounds. No guarding, rebound or tenderness. CENTRAL NERVOUS SYSTEM: Grossly nonfocal. EXTREMITIES: Lower extremities without edema bilaterally. Data : 06/24/20 04:27 06/24/20 04:27 A&P Assessment and plan (1) Angina pectoris: Worsening of chest pain with shortness of breath which has increased over the period of last 4 weeks despite of optimization of medicine is suspicious for unstable angina patient has history of coronary artery disease with stent to LAD and diagonal branch in the past. We would therefore proceed with left heart cath and PCI if indicated. Patient has been explained all risk benefit and alternative for the procedure she would like to proceed with it. We have problem with our Zigzag Elastic Attacher and I am not sure whether Zigzag Elastic Attacher will be functional tomorrow we will continue to manage her medically until then. Continue aspirin statin beta-raisa nitroglycerin isosorbide mononitrate. Continue Lovenox or heparin for anticoagulation Patient remained stable patient was supposed to undergo left heart cath today however in-house Zigzag Elastic Attacher has broken down most likely it will be back into service by Monday on 26 June. I have discussed with the patient and given her choices. She will think about it but that she want to go outside hospital and she would like to wait. Further plan will be advised continue current regimen. Status: Acute (2) CAD (coronary artery disease), [place] coronary artery: As above we will proceed with a left heart catheter possible unstable angina. Status: Acute Qualifiers: [place] vs. transplanted heart: [place] heart Associated angina: with unstable angina Qualified Code(s): I25.110 - Atherosclerotic heart disease of [place] coronary artery with unstable angina pectoris (3) Aortic stenosis, mild: Remained stable. Continue medicine Status: Acute Attestations Medical Necessity Statement*: Require continuation hospitalization for above defined care. 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 transplanted heart: [place] heart Associated angina: with unstable angina Aortic stenosis, mild I35.0
--- NOTE | 2020-06-24 19:33 | PC.NURSE ---
Received report from DENISHA Mc. Patient resting in bed watching tv. Discussed plan for left heart catheterization. Patient verbalized understanding. Denies chest pain reporting i have not had any chest pain while I have been here. Denies other needs. No distress observed.
[2020-06-24] MEDS: enoxaparin 40 mg/0.4 mL Syringe SUBCUT (20:28)
[2020-06-24] MEDS: ropinirole 0.25 mg Tablet 0.5 MG PO (20:28)
[2020-06-24] MEDS: magnesium oxide 400 mg tablet PO (20:28)
[2020-06-24] MEDS: calcium carb-vit d 600mg/400unit 1 Tablet 1 EACH PO (20:29)
[2020-06-24] MEDS: sertraline 50 mg Tablet 25 MG PO (20:29)
[2020-06-24] MEDS: clopidogrel 75 mg Tablet PO (20:29)
[2020-06-24] MEDS: atorvastatin 40 mg Tablet 80 MG PO (20:29)
[2020-06-25] VITALS (31 sets, daily range): BP systolic 89–155; BP diastolic 52–77; PULSE 60–82; RESP 10–32; TEMP 36.5–36.7; O2SAT 86–97
[2020-06-25 05:19] LABS: Basophils # 0.1 10^3/uL (0.0-0.1); Basophils % 0.8 %; Eosinophils # 0.2 10^3/uL (0.0-0.8); Eosinophils % 2.9 %; Hematocrit 41.3 % (37.0-47.0); Hemoglobin 13.4 g/dL (11.5-15.3); Lymphocytes # 1.1 10^3/uL (0.8-4.8); Lymphocytes % 18.1 %; Mean Corpuscular HGB Conc 32.4 g/dL (30.0-36.0); Mean Corpuscular Hemoglobin 31.2 pg (28.0-34.0); Mean Platelet Volume 9.7 fL (7.4-10.4); Monocytes # 0.4 10^3/uL (0.2-0.9); Monocytes % 6.5 %; Neutrophils # 4.51 10^3/uL (1.8-7.7); Neutrophils % 71.5 %; Nucleated Red Blood Cells % 0 %; Platelet Count 283 10^3/cmm (130-400); White Blood Count 6.3 10^3/uL (4.0-10.0)
[2020-06-25 06:07] LABS: Alanine Aminotransferase 19 U/L (0-33); Alkaline Phosphatase 145 IU/L (35-105); Aspartate Amino Transferase 18 U/L (0-32); Blood Urea Nitrogen 19 mg/dL (8-23); Calcium 9.9 mg/dL (8.5-10.5); Carbon Dioxide 28 mmol/L (22-29); Chloride 95 mmol/L (98-107); Creatinine Clr Calc Pharmacy 49.6518; Globulin 2.9 g/dL (1.3-4.6); Glucose 93 mg/dL (65-115); Osmolality Calculated 280 mOsm/kg (285-295); Sodium 134 mmol/L (136-145); Total Bilirubin 0.4 mg/dL (0.15-1.2); Total Protein 6.9 g/dL (6.6-8.7)
[2020-06-25 06:14] LABS: Magnesium 2.3 mg/dL (1.7-2.3); NT Pro B Type Natriuretic Pept 240 pg/mL (0-125); Phosphorus 4.6 mg/dL (2.5-4.5)
[2020-06-25 06:16] LABS: Anion Gap 15.3 (5-19); Potassium 4.3 mmol/L (3.5-5.1)
[2020-06-25] MEDS: pantoprazole DR 40 mg Tablet PO (08:43)
[2020-06-25] MEDS: docusate sodium 100 mg Capsule PO (08:43)
[2020-06-25] MEDS: aspirin 81 mg EC Tablet PO (08:43)
[2020-06-25] MEDS: hydroCHLOROthiazide 25 mg Tablet 12.5 MG PO (08:43)
[2020-06-25] MEDS: levETIRAcetam 500 mg Tablet PO (08:43)
[2020-06-25] MEDS: metoprolol succinate ER (24 HR) 25 mg Tablet PO (08:43)
[2020-06-25] MEDS: isosorbide mononitrate ER 60 mg Tablet PO (08:43)
[2020-06-25] MEDS: albuterol 8 gm MDI 2 PUFF INHALATION (08:51)
--- NOTE | 2020-06-25 10:26 | XACV_ITS ---
Exam Room: [facility] Ht: 163 cm Wt: 73 kg BSA: 1.83 m2 Gender: Female : 1950 Any Known Allergies: No known allergies Exam Priority: Routine Procedure(s): Procedure Description: Diagnostic procedure Procedure Description: Coronary Angiography Diagnostic Cath Status: Urgent Diagnostic Findings * CX has 0% stenosis. * RCA has 0% stenosis. * LM: Mild 20% stenosis, ROSA: 3 flow. * pLAD: Mild 30% stenosis, ROSA: 3 flow. * Coronary angiography shows right dominance. Conclusions 1. There is mild coronary artery disease with two vessel disease. Recommendations * Continue current medical management and risk factor modification. Pressures Phase:Rest AO : 71 / 47 ( 56 ) @ 5:57:00 AM 82 / 49 ( 63 ) @ 6:03:00 AM Clinical Evaluation EBL: 5mL-10mL Procedural Details Procedure Consent Obtained. Pre-Procedure Time Out. Identified patient by full name and date of as verbalized by the patient/guarantor. Does the consent match the physician's order: Yes. Accurate & Complete Informed Consent: Yes. Inpatient/Outpatient History & Physical on Chart: Yes. If H&P is completed, is and addenduem needed: No; If yes, is the addendum complete: N/A. Visualize and Verify Site with Patient/Guarantor: N/A. Relevant Radiology Images available: N/A. Pre-op teaching completed and patient verbalized understanding. The risks, benefits, and alternatives of sedation and/or procedure were discussed by physician. The patient agrees to continue. Trudy Euceda RN, CAFETERIA DIRECTOR was relieved by Viktor Hernández RRT as monitoring person. Procedure started. [facility] Clinical Fraility Score: 4: Vulnerable. Mainframe Systems Administrator Indications: New Onset Angina. Chest Pain Symptom Assessment: Typical Angina Symptoms. Cardiovascular Instability: No. Correct patient, site and procedure confirmed by cath team. PERRLA. Strong, equal hand creping machine operator helper bilaterally. Lungs clear x 5 lobes. IV Site on Arrival: 20 gauge in the right anticubital. IV Fluids: 0.9% NaCl at KVO. 150 mL infused prior to quality assurance qa lab analyst. Oxygen started at 2liters/min via nasal canula. bilateral groins was prepped with chloroprep then draped in the usual sterile fashion. right radial was prepped with chloroprep then draped in the usual sterile fashion. Physician notified. Baseline sample Acquired. HR: 66 BPM. Physician arrived. Equipment: 6F - Radial. Cardiac Cath Pack. ACIST Manifold Kit Model BT 2000. Heparinized Saline (2 units/mL), 1000 mL bag. Physician scrubbed in. Immediate Pre-Procedure Time Out. Correct Patient: Yes; Correct Procedure: Yes; Correct Site: Yes; Correct Patient Position: Yes; Correct Supplies: Yes; Dried Flammable Prep: Yes; Blood Products Available: N/A;. Lidocaine 1% infiltrated to the right radial. Arterial access obtained. A 5 albanian TIG catheter in over wire. Multiple views taken of left coronary artery. Catheter redirected to the RCA. Catheter removed over the exchange wire. A 5 [place] JL4 catheter in over wire. Catheter removed over the exchange wire. Physician scrubbed out. A TR Band was successful obtaining hemostatsis at the Right Radial artery insertion site. TR band placed. Hemostasis obtained. Post Procedure: Pulses reassessed and unchanged. PERRLA. Strong, equal hand creping machine operator helper bilaterally. No VTE prophylaxis required. Total IV fluids: 250 mL. Contrast type used: Omnipaque 300 mgI/mL, 500 mL bottle. Medication's Wasted: Lidocaine 1% = 18 mL. Medication's Wasted: Nitro = 49.8 mg. Medication's Wasted: Heparin = 1000 units. Complications: none. Estimated blood loss: 5mL-10mL. Procedure completed. Patient transferred by wheelchair to 1st floor. Vital chart was stopped. Access Site Site: Right Radial artery Sheath Size: 6 Fr Hemostasis Method: TR Band Hemostasis Success: Successful Procedure Medications Start: 11:40 AM Stop: 11:40 AM Medication: Versed Amount: 1 mg Route: I.V. Start: 11:40 AM Stop: 11:40 AM Medication: Fentanyl Amount: 50 mcg Route: I.V. Start: 11:48 AM Stop: 11:48 AM Medication: Versed Amount: 1 mg Route: I.V. Start: 11:48 AM Stop: 11:48 AM Medication: Fentanyl Amount: 50 mcg Route: I.V. Start: 11:55 AM Stop: 11:55 AM Medication: 0.9% Saline Amount: 500 ml Route: I.V. bolus Start: 11:56 AM Stop: 11:56 AM Medication: Nitrogylcerin Amount: 200 mcg Route: I.A. I, the attending physician, have reviewed and verified all procedure medications. Yes, all medications given per verbal order History/Risk Factors Hypertension: Yes Dyslipidemia: Yes Peripheral Arterial Disease (PAD): No Myocardial Infarction (DC): No Obesity: No Renal Disease: No Prior Interventions PCI: Yes CABG: No Valve Surgery: No Date of PCI: 12/03/2017 Report Signatures Finalized by Rafa Anna MD on 07/07/2020 06:37 PM
[2020-06-25 11:01] LABS: SARS Covid-2 Antigen Negative (Negative)
--- NOTE | 2020-06-25 11:34 | W.PM.OPSUD ---
Surgery/Procedure H&P Update DATE OF PROCEDURE: June 25, 2020 DATE H&P PERFORMED: 06/23/20 H&P UPDATE INFORMATION: I have reviewed H&P completed within last 30 days, I have examined patient prior to procedure and No changes to prior documentation PREOP DIAGNOSIS: Unstable angina PLANNED PROCEDURE: Operation Date: 06/25/20 10:00 Proposed Procedures p Cardiac Catheterization(Not Applicable) - Rafa Anna MD PATIENT REASSESSED PRIOR TO SEDATION, WITH NO CHANGE NOTED: Yes PHYSICAL EXAM: alert, oriented x 3 and clear to auscultation bilaterally AIRWAY EVAL/ANESTHESIA PLAN: ASA II, Risks, benefits & alternatives of sedation and/or procedure discussed and Patient agrees to continue as planned
--- NOTE | 2020-06-25 12:15 | P.PN_ITS ---
Subjective Subjective: Interval history: Status post angiogram of coronaries which did not show any significant stenosis previously placed mid LAD and diagonal stents are patent. Patient has endothelial dysfunction evident in the RCA. Medications: Reviewed: Yes Vitals/I&O/Wt Last Vital Signs Temp 97.8 F 06/25/20 07:39 Pulse 71 06/25/20 08:54 Resp 18 06/25/20 08:54 BP 154/75 06/25/20 07:39 Pulse Ox 97 06/25/20 08:54 06/24/20 06/25/20 06/25/20 22:59 06:59 14:59 Intake Total 360 / 711.667 Balance 360 / 711.667 Physical Exam Narrative: EXAM NARRATIVE: GENERAL: Patient is alert, awake and oriented x3. NECK: No jugular vein distension. HEENT: No cyanosis. No icterus. No pallor. HEART: Regular S1 and S2. No murmur, rub or gallop. LUNGS: Clear to auscultate bilaterally. ABDOMEN: Soft, nontender and nondistended. Positive bowel sounds. No guarding, rebound or tenderness. CENTRAL NERVOUS SYSTEM: Grossly nonfocal. EXTREMITIES: Lower extremities without edema bilaterally. Const: COMMON NORMALS: alert Resp: COMMON NORMALS: clear to auscultation bilaterally AUSCULTATION: clear to auscultation bilaterally Neuro: SENSORIUM/ORIENTATION: Yes alert Data : 06/25/20 04:53 06/25/20 04:53 A&P Assessment and plan (1) Angina pectoris: Worsening of chest pain with shortness of breath which has increased over the period of last 4 weeks despite of optimization of medicine is suspicious for unstable angina patient has history of coronary artery disease with stent to LAD and diagonal branch in the past. We would therefore proceed with left heart cath and PCI if indicated. Patient has been explained all risk benefit and alternative for the procedure she would like to proceed with it. We have problem with our Tunnel Kiln Operator and I am not sure whether Tunnel Kiln Operator will be functional tomorrow we will continue to manage her medically until then. Continue aspirin statin beta-raisa nitroglycerin isosorbide mononitrate. Continue Lovenox or heparin for anticoagulation Patient remained stable patient was supposed to undergo left heart cath today however in-house Tunnel Kiln Operator has broken down most likely it will be back into service by Monday on 26 June. I have discussed with the patient and given her choices. She will think about it but that she want to go outside hospital and she would like to wait. Further plan will be advised continue current regimen. On today's visit dated June 25, 2020 patient underwent coronary angiogram which revealed patent previously placed mid LAD and diagonal stents. Proximal LAD has 30 % stenosis circumflex is nondominant vessel wall RCA did not show any significant stenosis but endothelial dysfunction. Possible cause for chest pain could be extracardiac cannot rule out coronary spasm. Patient is already on high-dose of isosorbide mononitrate. Status: Acute (2) CAD (coronary artery disease), [place] coronary artery: Stable as defined above. Continue current regimen after bedrest complete we will discharge her home today Status: Acute Qualifiers: [place] vs. transplanted heart: [place] heart Associated angina: with unstable angina Qualified Code(s): I25.110 - Atherosclerotic heart disease of [place] coronary artery with unstable angina pectoris (3) Aortic stenosis, mild: Remained stable. 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 transplanted heart: [place] heart Associated angina: with unstable angina Aortic stenosis, mild I35.0
--- NOTE | 2020-06-25 12:48 | PM.DCS ---
Discharge Providers Date of Admission: 06/23/20 17:04 Date of Discharge: June 25, 2020 Attending Provider at Admission: Maninder Byrd MD Attending Provider at Discharge: Maninder Byrd MD Primary Care Provider: Justin Chapman DO Diagnoses at Discharge Discharge Diagnosis (1) Angina pectoris: Status: Acute Permanent problem details: Status post PCI to diagonal branch. No more angina (2) CAD (coronary artery disease), [place] coronary artery: Status: Acute Permanent problem details: Diagonal branch for significant ostial and proximal diagonal lesion. It was treated with 2 overlapping drug-eluting stents Qualifiers: [place] vs. transplanted heart: [place] heart Associated angina: with unstable angina Qualified Code(s): I25.110 - Atherosclerotic heart disease of [place] coronary artery with unstable angina pectoris (3) Aortic stenosis, mild: Status: Acute Permanent problem details: Stable Reason for Visit Reason for Visit: CHEST PAIN Hospital Course Hospital Course Karina Leija is a 70 year old female with past medical history of CAD status post stenting to LAD and diagonal branch, hypertension, hyperlipidemia, history of TIAs, history of syncope, history of right-sided breast cancer status post chemoradiation, CKD, chronic venous insufficiency, chronic normocytic anemia, depression, history of seizure disorder who presents [facility] due to complaints of chest pain. Patient was admitted to [facility] for chest pain: Angina pectoris: -Status post stenting to LAD, diagonal branch -Had a low probability cardiac stress test on April 2020 -Is on optimal medical therapy aspirin, statin, Plavix, Imdur, beta-raisa -Chest pain is concerning for cardiac etiology -Troponin series without any significant delta, EKG normal sinus rhythm, no current chest pain Patient was admitted to the cardiac stepdown unit -Aspirin, statin, Plavix, Imdur, beta-raisa -Nitro as needed for chest pain - telemetry monitoring, monitor for chest pain, one episode of chest pain as inpatient, no episode chest pain on discharge -Cardiology was consulted, patient underwent a coronary angiogram by Dr. Dennis coronary angiogram showed patent stent in mid LAD and and diagonal stents, proximal LAD has 30 % stenosis circumflex is nondominant vessel wall RCA did not show any significant stenosis. Likely cause of chest pain is musculoskeletal in nature, Tylenol ibuprofen as needed, however cannot rule out coronary spasm. Patient will be discharged on her home aspirin, statin, Plavix, Imdur, beta-raisa, with a close follow-up with cardiology as outpatient. Physical Exam Const: COMMON NORMALS: no acute distress and patient oriented x3 HENMT: COMMON NORMALS: normocephalic HEAD & SCALP: normocephalic Neck/C-Spine: COMMON NORMALS: no JVD Resp: COMMON NORMALS: normal respiratory effort, No retractions, No use of accessory muscles and clear to auscultation bilaterally AUSCULTATION: clear to auscultation bilaterally Cardio: COMMON NORMALS: no JVD, regular rate, regular rhythm, S1 normal heart sound present and S2 normal heart sound present RATE: regular rate RHYTHM: regular rhythm HEART SOUNDS: S1 normal heart sound present and S2 normal heart sound present GI: COMMON NORMALS: Normal to inspection, nondistended, normoactive bowel sounds present, Soft to palpation, non-tender, No hepatosplenomegaly present, no masses and no bruits PALPATION: Yes Soft to palpation and Yes No hepatosplenomegaly present Extremity: COMMON NORMALS: capillary refill normal, no clubbing, cyanosis or edema, no calf tenderness and no pedal edema Neuro: COMMON NORMALS: patient oriented x3 Psych: COMMON NORMALS: mental status grossly normal Discharge Data Data Completed and Pending: Completed Studies During Hospitalization Category Date Time Status XR chest 1V cyndy ble [id number] Stat Exams 06/22/20 15:50 Completed Pending at discharge Category Date Time Status SENIOR TRAINING SPECIALIST request for service Routin e Exams 06/25/20 10:26 Ordered Complete Blood Co unt w/Auto AM LABS Lab 06/26/20 04:00 Ordered Comprehensive Met abolic Panel AM LA BS Lab 06/26/20 04:00 Ordered Labs from last 24 hours 06/25/20 06/25/20 06/25/20 09:40 04:53 04:53 WBC RBC Hgb Hct MCV MCH MCHC RDW Plt Count MPV Neut % (Auto) Lymph % (Auto) [place] % (Auto) Eos % (Auto) Baso % (Auto) Neut # (Auto) Lymph # (Auto) [place] # (Auto) Eos # (Auto) Baso # (Auto) Nucleated RBC % (a uto) Nucleated RBCs # Sodium 134 L Potassium 4.3 Chloride 95 L Carbon Dioxide 28 Anion Gap 15.3 BUN 19 Creatinine 1.0 H GFR Calculation Not Reportable Glucose 93 Calculated Osmolal ity 280 L Calcium 9.9 Phosphorus 4.6 H Magnesium 2.3 Total Bilirubin 0.4 AST 18 ALT 19 Alkaline Phosphata se 145 H NT-Pro-B Natriuret Pep 240 H Total Protein 6.9 Albumin 4.0 Globulin 2.9 SARS-CoV-2 Ag (Rap id) Negative 06/25/20 04:53 WBC 6.3 RBC 4.30 Hgb 13.4 Hct 41.3 MCV 96.0 MCH 31.2 MCHC 32.4 RDW 14.0 Plt Count 283 MPV 9.7 Neut % (Auto) 71.5 Lymph % (Auto) 18.1 [place] % (Auto) 6.5 Eos % (Auto) 2.9 Baso % (Auto) 0.8 Neut # (Auto) 4.51 Lymph # (Auto) 1.1 [place] # (Auto) 0.4 Eos # (Auto) 0.2 Baso # (Auto) 0.1 Nucleated RBC % (a uto) 0 Nucleated RBCs # 0.0 Sodium Potassium Chloride Carbon Dioxide Anion Gap BUN Creatinine GFR Calculation Glucose Calculated Osmolal ity Calcium Phosphorus Magnesium Total Bilirubin AST ALT Alkaline Phosphata se NT-Pro-B Natriuret Pep Total Protein Albumin Globulin SARS-CoV-2 Ag (Rap id) Vitals: Last Vital Signs Temp 97.7 F 06/25/20 12:24 Pulse 60 06/25/20 12:30 Resp 10 L 06/25/20 12:30 BP 116/60 06/25/20 12:30 Pulse Ox 93 06/25/20 12:24 Discharge Plan Discharge Patient Disposition: Home Condition: Stable Prescriptions: Continued ropinirole [Requip] 5 mg tablet See Rx Instructions PO BEDTIME RF: 0 clopidogrel 75 mg tablet 75 mg PO DAILY@20 RF: 0 aspirin 81 mg tablet,delayed release (DR/EC) 81 mg PO DAILY@09 RF: 0 magnesium 400 mg PO DAILY@20 RF: 0 docusate sodium [Colace] 100 mg capsule 100 mg PO BID@ RF: 0 levetiracetam 500 mg tablet 500 mg PO BID@, RF: 0 omeprazole 40 mg capsule,delayed release(DR/EC) 40 mg PO DAILY@09 RF: 0 acetaminophen [Tylenol Extra Strength] 500 mg tablet 1,000 mg PO .prn PRN (Reason: Pain) RF: 0 calcium carbonate-vitamin D3 [Calcium 600 with Vitamin D3] 600 mg(1,500mg) -500 unit capsule 1 cap PO DAILY@20 RF: 0 atorvastatin 80 mg tablet 80 mg PO DAILY@20 RF: 0 nitroglycerin 0.4 mg tablet, sublingual 0.4 mg SUBLINGUAL Q5M PRN (Reason: chest pain) Qty: 30 RF: 2 hydrocodone-acetaminophen 7.5-325 mg tablet 1 tab PO BID PRN (Reason: Pain) RF: 0 potassium chloride 10 mEq tablet extended release 10 meq PO DAILY PRN (Reason: Take with Lasix as needed for swelling) Qty: 90 RF: 3 furosemide 20 mg tablet 20 mg PO DAILY PRN (Reason: weight gain) Qty: 90 RF: 3 hydrochlorothiazide 12.5 mg Tablet 12.5 mg PO DAILY@09 RF: 0 ondansetron HCl [Zofran] 4 mg tablet 4 mg PO Q6H PRN (Reason: nausea and vomiting) Qty: 20 RF: 0 albuterol sulfate 2.5 mg /3 mL (0.083 %) solution for nebulization See Rx Instructions .ROUTE .COMPLEX PRN (Reason: shsortness of breath) RF: 0 albuterol sulfate 90 mcg/actuation HFA aerosol inhaler 2 puff INHALATION Q4H PRN (Reason: Shortness Of Breath) RF: 0 Breo Ellipta 100-25 mcg/dose blister with device 1 inh INHALATION DAILY@09 RF: 0 sertraline [Zoloft] 25 mg Tablet 25 mg PO DAILY@1999 RF: 0 isosorbide mononitrate 60 mg tablet extended release 24 hr 60 mg PO DAILY@ RF: 0 metoprolol succinate 25 mg capsule,sprinkle,ER 24hr 25 mg PO DAILY@ RF: 0 alendronate 35 mg Tablet 35 mg PO Q7D RF: 0 pantoprazole 40 mg Tablet,Delayed Release (Dr/Ec) 40 mg PO DAILY RF: 0 Spiriva with HandiHaler 18 mcg Capsule, W/Inhalation Device 1 cap INHALATION DAILY@09 RF: 0 Discharge Orders: Discharge Order (Routine); Ordered 06/25/20 Ordered By: Maninder Byrd Referrals: Rafa Anna MD [Physician] - 2 weeks Justin Chapman DO [Primary Care Provider] - Discharge Diet: Cardiac Discharge Activity: Resume usual activity Discharge Attestations Time Spent in Discharge Care*: greater than 30 min Quality Metrics Clinical Quality Measures During this hospital stay, did patient experience: None Coding Level of Care Code Acute Insight Leader for Harmonyg Fwd Diagnoses Angina pectoris I20.9 CAD (coronary artery disease), [place] coronary artery I25.110 [place] vs. transplanted heart: [place] heart Associated angina: with unstable angina Aortic stenosis, mild I35.0
== END 2020-06-25 18:49 | disposition home or self-care (01) | DRG 287 ==
LOC: ER 17:20 → CSU 18:09
PROVIDERS: Internal Medicine Cardiovascular Disease; Admitting Provider Family Medicine; Emergency Provider Family Medicine; PCP Electrodiagnostic Medicine; Visit Provider Family Medicine
PROC: B2111ZZ Fluoroscopy of Multiple Coronary Arteries using Low Osmolar Contrast (ICD-10-PCS; principal; 2020-06-25 10:00)
DX: I25.110 Atherosclerotic heart disease of native coronary artery with unstable angina pectoris (principal); I12.9 Hypertensive chronic kidney disease with stage 1 through stage 4 chronic kidney disease, or unspecified chronic kidney disease; N18.9 Chronic kidney disease, unspecified; E78.5 Hyperlipidemia, unspecified; Z86.73 Personal history of transient ischemic attack (TIA), and cerebral infarction without residual deficits; Z85.3 Personal history of malignant neoplasm of breast; Z92.21 Personal history of antineoplastic chemotherapy; Z92.3 Personal history of irradiation; I87.2 Venous insufficiency (chronic) (peripheral); D64.9 Anemia, unspecified; F32.9 Major depressive disorder, single episode, unspecified; G40.909 Epilepsy, unspecified, not intractable, without status epilepticus; I35.0 Nonrheumatic aortic (valve) stenosis; E66.9 Obesity, unspecified; Z68.27 Body mass index [BMI] 27.0-27.9, adult; M16.0 Bilateral primary osteoarthritis of hip; Z96.649 Presence of unspecified artificial hip joint; Z90.11 Acquired absence of right breast and nipple; Z87.891 Personal history of nicotine dependence; R55 Syncope and collapse; Z79.891 Long term (current) use of opiate analgesic; Z79.82 Long term (current) use of aspirin; Z66 Do not resuscitate
CPT/HCPCS: 12345; 36415; 71045; 80053; 80061; 83735; 83880; 84100; 84484; 85025; 87426; 93005; 93454; 94640; 96372; 99282; C1769; C1887; C1894; G0378; J1644; J1650; J2250; J3010; J3490; J3535; J7030; Q9967

== ENCOUNTER 2020-10-27 10:08 | Outpatient (CLI) | payer MEDICARE, SELFPAY ==
--- NOTE | 2020-10-27 10:14 | MM_ITS ---
WS: [id number] DIAGNOSTIC LEFT DIGITAL MAMMOGRAM WITH CAD HISTORY: HX OF BREAST CA;RT MASTECTOMY COMPARISON: 10/24/2019 Technique: CC, MLO and ML views. Breast composition: There are scattered areas of fibroglandular density. Breast arterial calcificati ons. No suspicious masses. Benign-appearing lymph nodes in the axilla. MM/[id number] IMPRESSION: BI-RADS: 2-Benign FOLLOW UP: 1 Year Follow-up
== END 2020-10-27 10:09 | disposition home or self-care (01) ==
LOC: RADSHAW 10:11
PROVIDERS: PCP Electrodiagnostic Medicine; Visit Provider Electrodiagnostic Medicine
DX: Z85.3 Personal history of malignant neoplasm of breast (principal); Z90.11 Acquired absence of right breast and nipple
CPT/HCPCS: 77065

== ENCOUNTER 2020-11-18 11:31 | Outpatient (CLI) | payer MEDICARE, SELFPAY ==
[2020-11-18 12:45] LABS: Basophils # 0.1 10^3/uL (0.0-0.1); Basophils % 0.8 %; Eosinophils # 0.1 10^3/uL (0.0-0.8); Hematocrit 37.3 % (37.0-47.0); Hemoglobin 12.2 g/dL (11.5-15.3); Lymphocytes # 1.1 10^3/uL (0.8-4.8); Lymphocytes % 17.9 %; Mean Corpuscular HGB Conc 32.7 g/dL (30.0-36.0); Mean Corpuscular Hemoglobin 30.9 pg (28.0-34.0); Mean Corpuscular Volume 94.4 fL (81-99); Mean Platelet Volume 9.6 fL (7.4-10.4); Monocytes # 0.4 10^3/uL (0.2-0.9); Monocytes % 5.9 %; Neutrophils # 4.36 10^3/uL (1.8-7.7); Neutrophils % 73.1 %; Nucleated Red Blood Cells % 0 %; Platelet Count 307 10^3/cmm (130-400); Red Blood Count 3.95 10^6/uL (4.1-5.3); Red Cell Distribution Width 14.2 % (12.1-15.1)
[2020-11-18 13:10] LABS: Alanine Aminotransferase 15 U/L (0-33); Albumin Level 4.3 g/dL (3.5-5.2); Alkaline Phosphatase 133 IU/L (35-105); Anion Gap 13.2 (5-19); Aspartate Amino Transferase 18 U/L (0-32); Blood Urea Nitrogen 14 mg/dL (8-23); Calcium 8.5 mg/dL (8.5-10.5); Carbon Dioxide 28 mmol/L (22-29); Chloride 99 mmol/L (98-107); Globulin 2.1 g/dL (1.3-4.6); Glucose 73 mg/dL (65-115); Osmolality Calculated 281 mOsm/kg (285-295); Potassium 4.2 mmol/L (3.5-5.1); Sodium 136 mmol/L (136-145); Total Bilirubin 0.4 mg/dL (0.15-1.2); Total Protein 6.4 g/dL (6.6-8.7)
--- NOTE | 2020-11-19 09:12 | ONC FU_ITS ---
Dr. Reeder follow up note Patient: Karina Leija Unit #: [id number]: [id number] Dicatated By: Ariana Reeder M.D.Date of Visit:Nov 18, 2020 Onc Med Follow-up/Prog Note History of Present Illness: Mrs Karina Leija, 70 -year-old female with a history of DCIS involving the right breast per ultrasound-guided biopsy breast on 08/24/2015. 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 As per patient she underwent routine mammogram on 08/11/2015 and it showed large area of very suspicious calcification at 12:00 position extending to the nipple. Patient was referred to surgeon but patient decided not to go for surgery or further evaluation. And about 3 months ago she noticed milky, not bloody ,discharge from her right nipple a . And also noticed lump in her right axilla and under her nipple. No other complaints, no bony pains. On 05/17/2017 she underwent right breast biopsy and right axillary lymph node biopsy and it showed infiltrating ductal carcinoma grade 3 ER/CT negative HER-2/rekha negative lymph node biopsy from right axilla was positive for metastatic disease Status post adjuvant chemotherapy with Taxotere and Cytoxan ???4 from 07/26/2017 to 10/05/2017 s/p right hip pain for which hip replacementdone in June 2018 Recently underwent right chest wall wound excision and final pathology report shows chronic inflammation. Now with good healing. Due to lower extremity swellings she underwent venous Doppler study of lower extremity on 03/08/2018 which showed no DVT CT PET scan done on 05/12/2018 showed no evidence of recurrent or residual disease. DEXA scan done on November 28, 2019 showed osteopenia Came for follow-up, denies any specific complaints, no fever chills, no nausea or vomiting, no diarrhea constipation, no new bony pains, no weight loss, appetite is good, no jaundice, no abdominal pain, tolerating weekly Fosamax along with vitamin D and calcium well Medications: Antacid Calcium (500 mg) Tablet, chewable Oral daily, Aspirin 1 Tablet (of 81 mg) Tablet Oral daily, Atorvastatin Calcium 1 Tablet (of 80 mg) Oral daily, Benadryl 1 - 2 Tablet (of 25 mg) Oral q 4 to 6 hours PRN, Docusate Sodium 1 Tablet (of 100 mg) Oral daily, FLUoxetine HCl (10 mg) Capsule Oral daily, hydroCHLOROthiazide 1 Capsule (of 12.5 mg) Oral daily, Hydrocodone-Acetaminophen 1 Tablet (of 7.5-325 mg) Oral q 4 to 6 hours PRN, Isosorbide Mononitrate 1 Tablet (of 60 mg) Oral daily, LevETIRAcetam 1 Tablet (of 1000 mg) Oral b.i.d., Magnesium (400 mg) Tablet Oral daily, Metoprolol Succinate ER 1 Tablet (of 25 mg) Tablet SR 24 HR Oral daily, Nitroglycerin 1 (0.4 mg) Tablet, sublingual Sublingual PRN, Pantoprazole Sodium (40 mg) Tablet, enteric coated Oral b.i.d., Plavix 1 (75 mg) Tablet Oral daily, rOPINIRole HCl 1 Tablet (of 0.5 mg) Oral at bedtime, Sucralfate 1 Tablet (of 1 g) Oral t.i.d. PRN Allergies: Silvadene Review of Systems: Review of Systems is not available for this patient. Vital Signs: Performed on Nov 18, 2020 16:41 Height - 64.00 in Weight - 170.8 lbs (HIGH) BSA - 1.83 sq.m BMI - 29.32 Temperature - 97.4 F (LOW) Pulse - 67 /min Respiration - 18 /min BP - 97/59 mm(hg) O2 Sat - 96 % Pain - 0 Fatigue - 0 Performance Status: 1 - No physically strenuous activity, but ambulatory and able to carry out light or sedentary work (e.g. office work, light house work). (ECOG) Physical Examination: Respiratory - Lungs are clear to auscultation, Cardiovascular - Regular rate and rhythm of heart, Gastrointestinal - Soft, bowel sounds present, Extremities - No visible edema or rash. Lab/Imaging: Most recent lab results are not available for this patient. Impression: 1. Infiltrating ductal carcinoma of right breast status post radical mastectomy with axillary dissection done on 06/22/2017 Size of invasive component 1.1 x 1 cm, grade 3, clear surgical margins pT1c 8 out of 15 axillary lymph nodes showed metastatic disease, tumor within capsule and extracapsular lymphatic spaces. pN2 ER negative CT negative and HER-2/rekha negative Ki-67 41% Stage IIIa Status post adjuvant chemotherapy with Taxotere and Cytoxan ???4 from 07/26/2017 through 10/05/2017 2.Right hip replacement in June 2018, now left hip replacement is under consideration X-ray hip done on 11/13/2017 showed advanced degenerative arthritis both hips with complete loss of joint space and [id number] articulation. Underlying sclerosis in the femoral heads suspicion for avascular necrosis CT PET scan done on 05/12/2018 showed no evidence of recurrent or residual disease Anemia normocytic normochromic etiology unclear could be underlying myelodysplasia or anemia of chronic disease patient has chronic arthritis involving bilateral hip right more than left. Resolved Osteopenia per DEXA scan done on November 28, 2019, on weekly Fosamax along with vitamin D and calcium Follow-up mammogram done on October 27, 2020 showed BI-RADS 2, benign Plan: Discussed with patient regarding her labs white blood count 6 hemoglobin 12.2 hematocrit 37.3 platelets 307,000 CMP within normal limits Clinically, patient doing well with no new signs symptoms history of recurrence of disease, tolerating weekly Fosamax/vitamin D/calcium well, her lab work-up is within normal range her follow-up mammogram done recently showed benign findings. We will continue to monitor she will return to clinic in 6 months with CBC CMP in the meantime continue with weekly Fosamax/vitamin D and calcium and, patient was also advised to maintain active lifestyle and regular exercise Signed By: Ariana Reeder M.D. <<Signature on File>>
== END 2020-11-18 11:32 | disposition home or self-care (01) ==
LOC: ONCMED 11:35
PROVIDERS: PCP Electrodiagnostic Medicine; Visit Provider Internal Medicine Hematology & Oncology
DX: C50.811 Malignant neoplasm of overlapping sites of right female breast (principal); Z90.11 Acquired absence of right breast and nipple; Z92.21 Personal history of antineoplastic chemotherapy; M85.80 Other specified disorders of bone density and structure, unspecified site; E55.9 Vitamin D deficiency, unspecified; Z79.899 Other long term (current) drug therapy; Z17.1 Estrogen receptor negative status [ER-]
CPT/HCPCS: 80053; 85025; 99214

== ENCOUNTER 2021-03-30 16:20 | Emergency (ER) | payer MEDICARE, SELFPAY ==
[2021-03-30 16:24] VITALS: BP 147/84; PULSE 67; RESP 14; TEMP 36.7; O2SAT 93; BMI 29.8
--- NOTE | 2021-03-30 17:00 | XRR_ITS ---
PROCEDURE INFORMATION: Exam: XR Chest Exam date and time: 03/30/2021 5:00 PM Age: 71 years old Clinical indication: Other: Rapid heart rate; Prior surgery; Surgery date: 6+ months; Surgery type: Stents; Additional info: Chest pain TECHNIQUE: Imaging protocol: XR of the chest. Views: 1 view. COMPARISON: CR XR chest 1V portable [id number] 06/22/2020 3:49 PM FINDINGS: Lungs: Stable mild elevation of the left hemidiaphragm. No focal consolidation. No pulmonary edema. Calcified granuloma in the right lower lobe. Pleural spaces: No pleural effusion. No pneumothorax. Heart/Mediastinum: Stable mild enlargement of the cardiac silhouette. Mediastinal contours are unremarkable. Vasculature: Stable vascular calcifications in the aorta. Stable tortuosity of the aorta. Bones/joints: Unremarkable for age. XR/XR chest 1V portable [id number] IMPRESSION: 1. No acute cardiopulmonary process. 2. Incidental/nonacute findings are listed in the report. Radiation Dose CTDIVOL = (mGy): DLP = (mGy-cm)
--- NOTE | 2021-03-30 17:01 | ECG_ITS ---
[facility] Test Date: 2021-03-30 Pat Name: Karina Leija Department: Room: Gender: Female Rn Telemetry: : 1950 Requested By: Thad Miranda Order Number: [id number] Chloe MD: Zee Zavaleta M.D. Measurements Intervals [place] Rate: 68 P: 59 MD: 175 QRS: 54 QRSD: 92 T: 55 QT: 391 QTc: 417 Interpretive Statements SINUS RHYTHM POSSIBLE RIGHT VENTRICULAR CONDUCTION DELAY [RSR (QR) IN V1/V2] Compared to ECG 06/22/2020 21:19:26 No significant changes Electronically Signed On 03-30-2021 21:56:40 CDT by Zee Zavaleta M.D. [id number]
--- NOTE | 2021-03-30 17:02 | W.ED.CHESTPA ---
Documented by User: Thad Yan DO 04/02/21 18:30 HPI - Chest Pain General: Chief Complaint: Chest Pain Stated Complaint: SYNCOPE Time Seen by Provider: 03/30/21 16:26 History of Present Illness: HPI narrative: 71-year-old female presents emergency room from heart clinic. She was noted to be seen for chest discomfort. She had x-rays however palpitations and have a 21-day event monitor on her. Evidently she had episode of chest pain yesterday was at the clinic to be seen for this. While she was at the clinic she had an episode where she reportedly passed out for 2 minutes. She is not having any chest pain now. She has a good recollection of the events. She denies any shortness of breath or radiation of discomfort into the neck or the arms. MD complaint: chest pain Onset (ago): day(s) Onset: during rest Pain location: left chest Pain radiation: none Severity: mild Relieving factors: nothing Exacerbating factors: nothing Associated symptoms: Deny abdominal pain, diaphoresis, dyspnea, fever(s), leg edema, nausea, palpitations, sense of impending doom, syncope or vomiting Treatment prior to arrival: none Review of Systems Const: Denies: fever(s) or diaphoresis ENMT: Denies: throat pain, ear or mastoid pain, nasal discharge or nasal congestion Card: Denies: palpitations or syncope Resp: Denies: dyspnea GI: Denies: abdominal pain, nausea or vomiting : Denies: flank pain, difficulty voiding, dysuria, urinary frequency or urinary urgency Skin/Breast: Denies: rash or pruritus PFSH ED PFSH: Medical History Angina pectoris Status post PCI to diagonal branch. No more angina Aortic stenosis, mild Stable CAD (coronary artery disease), [place] coronary artery Diagonal branch for significant ostial and proximal diagonal lesion. It was treated with 2 overlapping drug-eluting stents HLD (hyperlipidemia) Obesity Primary osteoarthritis of both hips Varicose vein of leg Surgical History History of total hip arthroplasty Hx of appendectomy Hx of hysterectomy Hx of right mastectomy Family History Grandmother CAD (coronary artery disease) Hypertension Father CAD (coronary artery disease) Cancer Diabetes Hypertension Lung disease Mother Cancer Dementia Diabetes Hypertension Daughter Chronic kidney disease (CKD) eldest Hypertension Daughter Chronic kidney disease (CKD) third child Sister Hyperlipidemia all sisters Hypertension Lung disease Unknown Suicide maternal aunt-GSW- mid 40s Denies family history of Clotting disorder Psychiatric illness Anesthesia complication Bleeding disorder Family history of premature coronary artery disease Stroke Social History Quit status (tobacco): has quit using tobacco Year quit tobacco: 2017 Second hand smoke exposure: Yes Alcohol intake: never History of recent travel: No Physical Exam Const: COMMON NORMALS: no acute distress GENERAL APPEARANCE: cooperative and comfortable ORIENTATION/CONSCIOUSNESS: Yes awake, Yes oriented to person, Yes oriented to place and Yes oriented to time HENMT: COMMON NORMALS: normocephalic, atraumatic and hearing grossly normal bilaterally HEAD & SCALP: normocephalic and atraumatic Neck/C-Spine: COMMON NORMALS: no JVD Resp: COMMON NORMALS: normal respiratory effort, No retractions, No use of accessory muscles and clear to auscultation bilaterally AUSCULTATION: clear to auscultation bilaterally Cardio: COMMON NORMALS: no JVD, regular rate, regular rhythm and No murmurs present (Cardio) RATE: regular rate RHYTHM: regular rhythm GI: COMMON NORMALS: Soft to palpation and No hepatosplenomegaly present AUSCULTATION: Yes normoactive bowel sounds PALPATION: Yes Soft to palpation, No Tenderness to palpation present (GI), No Guarding due to palpation present (GI) and Yes No hepatosplenomegaly present Extremity: COMMON NORMALS: normal to inspection, capillary refill normal, no clubbing, cyanosis or edema, no calf tenderness and no pedal edema Neuro: SENSORIUM/ORIENTATION: Yes oriented to person, Yes oriented to place and Yes oriented to time Skin: COMMON NORMALS: no rashes or lesions noted GENERAL SKIN EXAM: no rashes or lesions noted Course Vital Signs: Vital signs: Vital Signs Temperature 98.1 F 03/30/21 16:24 Pulse Rate 63 03/30/21 17:38 Respiratory Rate 21 H 03/30/21 17:38 Blood Pressure 147/84 03/30/21 16:24 Pulse Oximetry 97 03/30/21 17:38 MDM - Chest Pain MDM Narrative: Medical decision making narrative: Care turned over Dr. Valdez at change of see his note for diagnosis disposition Lab Data: Labs: Lab Results 03/30/21 03/30/21 03/30/21 17:35 17:35 17:35 WBC 6.7 10^3/uL 10^3/ uL (4.0-10.0) RBC 4.14 10^6/uL 10^6 /uL (4.1-5.3) Hgb 12.6 g/dL g/dL (11.5-15.3) Hct 39.3 % % (37.0-47.0) MCV 94.9 fl fl (81-99) MCH 30.4 pg pg (28.0-34.0) MCHC 32.1 g/dL g/dL (30.0-36.0) RDW 13.5 % % (12.1-15.1) Plt Count 255 10^3/cmm 10^3 /cmm (130-400) MPV 9.5 fL fL (7.4-10.4) Neut % (Auto) 75.4 % % Lymph % (Auto) 15.2 % % [place] % (Auto) 7.5 % % Eos % (Auto) 1.0 % % Baso % (Auto) 0.6 % % Neut # (Auto) 5.05 10^3/uL 10^3 /uL (1.8-7.7) Lymph # (Auto) 1.0 10^3/uL 10^3/ uL (0.8-4.8) [place] # (Auto) 0.5 10^3/uL 10^3/ uL (0.2-0.9) Eos # (Auto) 0.1 10^3/uL 10^3/ uL (0.0-0.8) Baso # (Auto) 0.0 10^3/uL 10^3/ uL (0.0-0.1) Nucleated RBC % (a uto) 0 % % Nucleated RBCs # 0.0 /100WBC /100W BC Sodium 137 mmol/L mmol/L (136-145) Potassium 4.2 mmol/L mmol/L (3.5-5.1) Chloride 102 mmol/L mmol/L (98-107) Carbon Dioxide 24 mmol/L mmol/L (22-29) Anion Gap 15.2 (5-19) BUN 15 mg/dL mg/dL (8-23) Creatinine 0.9 mg/dL mg/dL (0.5-0.9) GFR Calculation Not Reportable Glucose 84 mg/dL mg/dL (65-115) Calculated Osmolal ity 284 mOsm/kg L mOs m/kg (285-295) Calcium 8.8 mg/dL mg/dL (8.5-10.5) Total Bilirubin 0.3 mg/dL mg/dL (0.15-1.2) AST 14 U/L U/L (0-32) ALT 12 U/L U/L (0-33) Alkaline Phosphata se 132 IU/L H IU/L (35-105) Troponin T Baselin e 9 ng/L ng/L (0-10) Troponin T [address] [place] Troponin T Total Protein 6.6 g/dL g/dL (6.6-8.7) Albumin 4.2 g/dL g/dL (3.5-5.2) Globulin 2.4 g/dL g/dL (1.3-4.6) 03/30/21 19:07 WBC RBC Hgb Hct MCV MCH MCHC RDW Plt Count MPV Neut % (Auto) Lymph % (Auto) [place] % (Auto) Eos % (Auto) Baso % (Auto) Neut # (Auto) Lymph # (Auto) [place] # (Auto) Eos # (Auto) Baso # (Auto) Nucleated RBC % (a uto) Nucleated RBCs # Sodium Potassium Chloride Carbon Dioxide Anion Gap BUN Creatinine GFR Calculation Glucose Calculated Osmolal ity Calcium Total Bilirubin AST ALT Alkaline Phosphata se Troponin T Baselin e Troponin T [address] [place] 8.63 ng/L ng/L (0-10) Delta Troponin T -0.37 ABS# L ABS# (0-10) Total Protein Albumin Globulin Discharge Plan Discharge Patient Disposition: Home Clinical Impression: Chest pain Condition: Stable Prescriptions: No Action fluoxetine 20 mg capsule 20 mg PO BEDTIME RF: 0 clopidogrel 75 mg tablet 75 mg PO DAILY@20 Qty: 90 RF: 3 aspirin 81 mg tablet,delayed release (DR/EC) 81 mg PO QAM RF: 0 docusate sodium [Colace] 100 mg capsule 100 mg PO BID RF: 0 calcium carbonate-vitamin D3 [Calcium 600 with Vitamin D3] 600 mg(1,500mg) -500 unit capsule 1 cap PO DAILY@20 RF: 0 atorvastatin 80 mg tablet 80 mg PO DAILY@20 RF: 0 nitroglycerin 0.4 mg tablet, sublingual 0.4 mg SUBLINGUAL Q5M PRN (Reason: chest pain) Qty: 30 RF: 2 potassium chloride 10 mEq tablet extended release 10 meq PO DAILY PRN (Reason: Take with Lasix as needed for swelling) Qty: 90 RF: 3 furosemide 20 mg tablet 20 mg PO DAILY PRN (Reason: weight gain) Qty: 90 RF: 3 ondansetron HCl [Zofran] 4 mg tablet 4 mg PO Q6H PRN (Reason: nausea and vomiting) Qty: 20 RF: 0 albuterol sulfate 2.5 mg /3 mL (0.083 %) solution for nebulization 2.5 mg inhalation Q4H PRN (Reason: Shortness Of Breath) RF: 0 albuterol sulfate 90 mcg/actuation HFA aerosol inhaler 2 puff INHALATION Q4H PRN (Reason: Shortness Of Breath) RF: 0 Breo Ellipta 100-25 mcg/dose blister with device 1 inh INHALATION DAILY@09 RF: 0 isosorbide mononitrate 60 mg tablet extended release 24 hr 60 mg PO QAM RF: 0 alendronate 35 mg Tablet 35 mg PO Q7D RF: 0 Spiriva with HandiHaler 18 mcg Capsule, W/Inhalation Device 1 cap INHALATION DAILY PRN (Reason: rx last filled 06/04/20) RF: 0 hydrocodone-acetaminophen 5-325 mg tablet 1 tab PO Q8H PRN (Reason: Pain) RF: 0 sucralfate 1 gram tablet 1 g PO QID PRN (Reason: ulcers) RF: 0 ropinirole 0.5 mg tablet 0.5 mg PO BEDTIME RF: 0 levetiracetam 750 mg tablet 750 mg PO BID RF: 0 metoprolol tartrate 25 mg tablet 12.5 mg PO BID RF: 0 magnesium Tablet 1 tab PO BEDTIME RF: 0 pantoprazole 40 mg tablet,delayed release (DR/EC) 40 mg PO QAM RF: 0 Discharge Orders: Discharge ED (Routine); Ordered 03/30/21 Ordered By: Daren Valdez Referrals: Justin Chapman DO [Primary Care Provider] - Discharge Diet: Advance as tolerated Discharge Activity: Resume usual activity Patient Instructions: Chest Pain (ED) Coding Level of Care Code ED Wound/Ostomy Nurse for Chg Fwd Documented by User: Daren Valdez MD 03/30/21 19:43 HPI - Chest Pain General: Chief Complaint: Chest Pain Stated Complaint: SYNCOPE Time Seen by Provider: 03/30/21 16:26 PFSH ED PFSH: Medical History Angina pectoris Status post PCI to diagonal branch. No more angina Aortic stenosis, mild Stable CAD (coronary artery disease), [place] coronary artery Diagonal branch for significant ostial and proximal diagonal lesion. It was treated with 2 overlapping drug-eluting stents HLD (hyperlipidemia) Obesity Primary osteoarthritis of both hips Varicose vein of leg Surgical History History of total hip arthroplasty Hx of appendectomy Hx of hysterectomy Hx of right mastectomy Family History Grandmother CAD (coronary artery disease) Hypertension Father CAD (coronary artery disease) Cancer Diabetes Hypertension Lung disease Mother Cancer Dementia Diabetes Hypertension Daughter Chronic kidney disease (CKD) eldest Hypertension Daughter Chronic kidney disease (CKD) third child Sister Hyperlipidemia all sisters Hypertension Lung disease Unknown Suicide maternal aunt-GSW- mid 40s Denies family history of Clotting disorder Psychiatric illness Anesthesia complication Bleeding disorder Family history of premature coronary artery disease Stroke Social History Quit status (tobacco): has quit using tobacco Year quit tobacco: 2017 Second hand smoke exposure: Yes Alcohol intake: never History of recent travel: No Course Vital Signs: Vital signs: Vital Signs Temperature 98.1 F 03/30/21 16:24 Pulse Rate 63 11/02/21 17:38 Respiratory Rate 21 H 03/30/21 17:38 Blood Pressure 147/84 03/30/21 16:24 Pulse Oximetry 97 03/30/21 17:38 MDM - Chest Pain MDM Narrative: Medical decision making narrative: Patient presents with chest pain with normal troponins and EKG here. Her event monitor was normal as well she feels improved she is stable for discharge she is to follow-up with Dr. Anna and return if worsening she understands agrees to plan. Lab Data: Labs: Lab Results 03/30/21 03/30/21 03/30/21 17:35 17:35 17:35 WBC 6.7 10^3/uL 10^3/ uL (4.0-10.0) RBC 4.14 10^6/uL 10^6 /uL (4.1-5.3) Hgb 12.6 g/dL g/dL (11.5-15.3) Hct 39.3 % % (37.0-47.0) MCV 94.9 fl fl (81-99) MCH 30.4 pg pg (28.0-34.0) MCHC 32.1 g/dL g/dL (30.0-36.0) RDW 13.5 % % (12.1-15.1) Plt Count 255 10^3/cmm 10^3 /cmm (130-400) MPV 9.5 fL fL (7.4-10.4) Neut % (Auto) 75.4 % % Lymph % (Auto) 15.2 % % [place] % (Auto) 7.5 % % Eos % (Auto) 1.0 % % Baso % (Auto) 0.6 % % Neut # (Auto) 5.05 10^3/uL 10^3 /uL (1.8-7.7) Lymph # (Auto) 1.0 10^3/uL 10^3/ uL (0.8-4.8) [place] # (Auto) 0.5 10^3/uL 10^3/ uL (0.2-0.9) Eos # (Auto) 0.1 10^3/uL 10^3/ uL (0.0-0.8) Baso # (Auto) 0.0 10^3/uL 10^3/ uL (0.0-0.1) Nucleated RBC % (a uto) 0 % % Nucleated RBCs # 0.0 /100WBC /100W BC Sodium 137 mmol/L mmol/L (136-145) Potassium 4.2 mmol/L mmol/L (3.5-5.1) Chloride 102 mmol/L mmol/L (98-107) Carbon Dioxide 24 mmol/L mmol/L (22-29) Anion Gap 15.2 (5-19) BUN 15 mg/dL mg/dL (8-23) Creatinine 0.9 mg/dL mg/dL (0.5-0.9) GFR Calculation Not Reportable Glucose 84 mg/dL mg/dL (65-115) Calculated Osmolal ity 284 mOsm/kg L mOs m/kg (285-295) Calcium 8.8 mg/dL mg/dL (8.5-10.5) Total Bilirubin 0.3 mg/dL mg/dL (0.15-1.2) AST 14 U/L U/L (0-32) ALT 12 U/L U/L (0-33) Alkaline Phosphata se 132 IU/L H IU/L (35-105) Troponin T Baselin e 9 ng/L ng/L (0-10) Troponin T [address] [place] Troponin T Total Protein 6.6 g/dL g/dL (6.6-8.7) Albumin 4.2 g/dL g/dL (3.5-5.2) Globulin 2.4 g/dL g/dL (1.3-4.6) 03/30/21 19:07 WBC RBC Hgb Hct MCV MCH MCHC RDW Plt Count MPV Neut % (Auto) Lymph % (Auto) [place] % (Auto) Eos % (Auto) Baso % (Auto) Neut # (Auto) Lymph # (Auto) [place] # (Auto) Eos # (Auto) Baso # (Auto) Nucleated RBC % (a uto) Nucleated RBCs # Sodium Potassium Chloride Carbon Dioxide Anion Gap BUN Creatinine GFR Calculation Glucose Calculated Osmolal ity Calcium Total Bilirubin AST ALT Alkaline Phosphata se Troponin T Baselin e Troponin T [address] [place] 8.63 ng/L ng/L (0-10) Delta Troponin T -0.37 ABS# L ABS# (0-10) Total Protein Albumin Globulin Imaging Data^: CXR: Attestation: I personally reviewed and interpreted this imaging study as follows: Radiologist's impression: [address] [place] [address] XRay Report Signed Patient: Karina Leija Unit #: [id number] : 1950 Age/Sex: 71 / F ADM Date: 03/30/21 Loc: ER Room/Bed: Attending Dr: Ordering Provider/Ordering MD: Thad Yan DO Date of Service: 03/30/21 Procedure(s): XR chest 1V portable [id number] Accession Number(s): [id number] Report Number: [id number] PROCEDURE INFORMATION: Exam: XR Chest Exam date and time: 03/30/2021 5:00 PM Age: 71 years old Clinical indication: Other: Rapid heart rate; Prior surgery; Surgery date: 6+ months; Surgery type: Stents; Additional info: Chest pain TECHNIQUE: Imaging protocol: XR of the chest. Views: 1 view. COMPARISON: CR XR chest 1V portable [id number] 06/22/2020 3:49 PM FINDINGS: Lungs: Stable mild elevation of the left hemidiaphragm. No focal consolidation. No pulmonary edema. Calcified granuloma in the right lower lobe. Pleural spaces: No pleural effusion. No pneumothorax. Heart/Mediastinum: Stable mild enlargement of the cardiac silhouette. Mediastinal contours are unremarkable. Vasculature: Stable vascular calcifications in the aorta. Stable tortuosity of the aorta. Bones/joints: Unremarkable for age. XR/XR chest 1V portable [id number] IMPRESSION: 1. No acute cardiopulmonary process. 2. Incidental/nonacute findings are listed in the report. Radiation Dose CTDIVOL = (mGy): DLP = (mGy-cm) Dictated By: Irena Kimball MD Signed By: Irena Kimball MD Signed Date/Time: 03/30/217 DD/ 1700 EKG Data^: EKG 1: Attestation: I personally reviewed and interpreted this EKG as follows: EKG interpretation date: 03/30/21 EKG interpretation time: 16:47 Interpretation: nsr hr [address] or t wave abnormalities qrs 92 qtc 408 EKG 2: Attestation: I personally reviewed and interpreted this EKG as follows: EKG interpretation date: 03/30/21 EKG interpretation time: 19:40 Interpretation: nsr hr [address] or t wave abnormalities qrs 97 qtc 428 Discharge Plan Discharge Patient Disposition: Home Clinical Impression: Chest pain Condition: Stable Prescriptions: No Action fluoxetine 20 mg capsule 20 mg PO BEDTIME RF: 0 clopidogrel 75 mg tablet 75 mg PO DAILY@20 Qty: 90 RF: 3 aspirin 81 mg tablet,delayed release (DR/EC) 81 mg PO QAM RF: 0 docusate sodium [Colace] 100 mg capsule 100 mg PO BID RF: 0 calcium carbonate-vitamin D3 [Calcium 600 with Vitamin D3] 600 mg(1,500mg) -500 unit capsule 1 cap PO DAILY@20 RF: 0 atorvastatin 80 mg tablet 80 mg PO DAILY@20 RF: 0 nitroglycerin 0.4 mg tablet, sublingual 0.4 mg SUBLINGUAL Q5M PRN (Reason: chest pain) Qty: 30 RF: 2 potassium chloride 10 mEq tablet extended release 10 meq PO DAILY PRN (Reason: Take with Lasix as needed for swelling) Qty: 90 RF: 3 furosemide 20 mg tablet 20 mg PO DAILY PRN (Reason: weight gain) Qty: 90 RF: 3 ondansetron HCl [Zofran] 4 mg tablet 4 mg PO Q6H PRN (Reason: nausea and vomiting) Qty: 20 RF: 0 albuterol sulfate 2.5 mg /3 mL (0.083 %) solution for nebulization 2.5 mg inhalation Q4H PRN (Reason: Shortness Of Breath) RF: 0 albuterol sulfate 90 mcg/actuation HFA aerosol inhaler 2 puff INHALATION Q4H PRN (Reason: Shortness Of Breath) RF: 0 Breo Ellipta 100-25 mcg/dose blister with device 1 inh INHALATION DAILY@09 RF: 0 isosorbide mononitrate 60 mg tablet extended release 24 hr 60 mg PO QAM RF: 0 alendronate 35 mg Tablet 35 mg PO Q7D RF: 0 Spiriva with HandiHaler 18 mcg Capsule, W/Inhalation Device 1 cap INHALATION DAILY PRN (Reason: rx last filled 06/04/20) RF: 0 hydrocodone-acetaminophen 5-325 mg tablet 1 tab PO Q8H PRN (Reason: Pain) RF: 0 sucralfate 1 gram tablet 1 g PO QID PRN (Reason: ulcers) RF: 0 ropinirole 0.5 mg tablet 0.5 mg PO BEDTIME RF: 0 levetiracetam 750 mg tablet 750 mg PO BID RF: 0 metoprolol tartrate 25 mg tablet 12.5 mg PO BID RF: 0 magnesium Tablet 1 tab PO BEDTIME RF: 0 pantoprazole 40 mg tablet,delayed release (DR/EC) 40 mg PO QAM RF: 0 Discharge Orders: Discharge ED (Routine); Ordered 03/30/21 Ordered By: Daren Valdez Referrals: Justin Chapman DO [Primary Care Provider] - Discharge Diet: Advance as tolerated Discharge Activity: Resume usual activity Patient Instructions: Chest Pain (ED) Coding Level of Care Code ED Wound/Ostomy Nurse for Phlilip Flores
--- NOTE | 2021-03-30 17:28 | PC.PHAR ---
pts sister justo ruvalcaba verified the pts medications-states the hctz was put on hold 2-3 weeks ago-states the metoprolol tartrate 25mg takes 12.5mg bid rx last filled on 02/10/21 30d/s for 25mg bid-notes are made in the pharmacy comments
[2021-03-30 17:38] VITALS: PULSE 63; RESP 21; O2SAT 97
[2021-03-30 17:43] LABS: Basophils % 0.6 %; Eosinophils # 0.1 10^3/uL (0.0-0.8); Hematocrit 39.3 % (37.0-47.0); Hemoglobin 12.6 g/dL (11.5-15.3); Lymphocytes % 15.2 %; Mean Corpuscular HGB Conc 32.1 g/dL (30.0-36.0); Mean Corpuscular Hemoglobin 30.4 pg (28.0-34.0); Mean Corpuscular Volume 94.9 fl (81-99); Mean Platelet Volume 9.5 fL (7.4-10.4); Monocytes # 0.5 10^3/uL (0.2-0.9); Monocytes % 7.5 %; Neutrophils # 5.05 10^3/uL (1.8-7.7); Neutrophils % 75.4 %; Nucleated Red Blood Cells % 0 %; Platelet Count 255 10^3/cmm (130-400); Red Blood Count 4.14 10^6/uL (4.1-5.3); Red Cell Distribution Width 13.5 % (12.1-15.1); White Blood Count 6.7 10^3/uL (4.0-10.0)
[2021-03-30 18:10] LABS: Troponin(5th) Baseline 9 ng/L (0-10)
[2021-03-30 18:12] LABS: Alanine Aminotransferase 12 U/L (0-33); Albumin Level 4.2 g/dL (3.5-5.2); Alkaline Phosphatase 132 IU/L (35-105); Anion Gap 15.2 (5-19); Aspartate Amino Transferase 14 U/L (0-32); Blood Urea Nitrogen 15 mg/dL (8-23); Calcium 8.8 mg/dL (8.5-10.5); Carbon Dioxide 24 mmol/L (22-29); Chloride 102 mmol/L (98-107); Globulin 2.4 g/dL (1.3-4.6); Glucose 84 mg/dL (65-115); Osmolality Calculated 284 mOsm/kg (285-295); Potassium 4.2 mmol/L (3.5-5.1); Sodium 137 mmol/L (136-145); Total Bilirubin 0.3 mg/dL (0.15-1.2); Total Protein 6.6 g/dL (6.6-8.7)
--- NOTE | 2021-03-30 18:22 | PC.NURSE ---
WHILE AT BEDSIDE PT REPORTED THAT SHE WANTED TO GO TO SLEEP AND NOT WAKE UP BUT STATED, I DON'T WANT TO HURT MYSELF AND I DON'T WANT TO STAY . INFORMED DR. MANCIA. DR MANCIA AT BEDSIDE SPEAKING WITH PT. HE VERBALIZED AFTERWARD TO CONTINUE WITH DC AFTER MEDICATION ADM. INFORMED PT THAT SHE
--- NOTE | 2021-03-30 18:32 | PC.NURSE ---
INFORMED BY CHARGE THAT PT WAS SEEN LEAVING INFORMED DR. MANCIA NO FURTHER ORDERS.
--- NOTE | 2021-03-30 18:58 | PC.NURSE ---
REPORT GIVEN TO [facility] ASSUMED CARE.
--- NOTE | 2021-03-30 19:02 | PC.NURSE ---
WHILE AT BEDSIDE PT IS IN NAD PT DOES NOT VERBALIZE ANY NEEDS AT THIS TIME.
[2021-03-30 19:27] LABS: Troponin 5 2HR 8.63 ng/L (0-10)
[2021-03-30 19:30] LABS: Troponin 5 2HR Delta -0.37 ABS# (0-10)
== END 2021-03-30 18:37 | disposition home or self-care (01) ==
PROVIDERS: Family Medicine; Emergency Provider Emergency Medicine; PCP Electrodiagnostic Medicine
DX: R07.89 Other chest pain (principal); Z87.891 Personal history of nicotine dependence; Z79.891 Long term (current) use of opiate analgesic; Z79.82 Long term (current) use of aspirin; I25.10 Atherosclerotic heart disease of native coronary artery without angina pectoris
CPT/HCPCS: 71045; 80053; 84484; 85025; 93005; 99283

== ENCOUNTER 2021-05-26 12:11 | Outpatient (CLI) | payer MEDICARE, SELFPAY ==
[2021-05-26 13:13] LABS: Basophils % 0.8 %; Eosinophils # 0.1 10^3/uL (0.0-0.8); Eosinophils % 1.4 %; Hematocrit 37.3 % (37.0-47.0); Hemoglobin 12.3 g/dL (11.5-15.3); Lymphocytes # 0.9 10^3/uL (0.8-4.8); Lymphocytes % 17.9 %; Mean Corpuscular Hemoglobin 31.1 pg (28.0-34.0); Mean Corpuscular Volume 94.2 fl (81-99); Mean Platelet Volume 9.7 fL (7.4-10.4); Monocytes # 0.3 10^3/uL (0.2-0.9); Monocytes % 5.8 %; Neutrophils # 3.57 10^3/uL (1.8-7.7); Neutrophils % 73.7 %; Nucleated Red Blood Cells % 0 %; Platelet Count 278 10^3/cmm (130-400); Red Blood Count 3.96 10^6/uL (4.1-5.3); White Blood Count 4.9 10^3/uL (4.0-10.0)
[2021-05-26 13:24] LABS: Alanine Aminotransferase 12 U/L (0-33); Albumin Level 4.2 g/dL (3.5-5.2); Alkaline Phosphatase 120 IU/L (35-105); Anion Gap 16.1 (5-19); Aspartate Amino Transferase 13 U/L (0-32); Blood Urea Nitrogen 9 mg/dL (8-23); Calcium 8.2 mg/dL (8.5-10.5); Carbon Dioxide 24 mmol/L (22-29); Chloride 104 mmol/L (98-107); Globulin 2.2 g/dL (1.3-4.6); Glucose 86 mg/dL (65-115); Osmolality Calculated 288 mOsm/kg (285-295); Potassium 4.1 mmol/L (3.5-5.1); Sodium 140 mmol/L (136-145); Total Bilirubin 0.4 mg/dL (0.15-1.2); Total Protein 6.4 g/dL (6.6-8.7)
--- NOTE | 2021-05-26 15:23 | ONC FU_ITS ---
Dr. Reeder follow up note Patient: Karina Leija Unit #: [id number]: 1950 Dicatated By: Ariana Reeder M.D.Date of Visit:May 26, 2021 Onc Med Follow-up/Prog Note History of Present Illness: Mrs Karina Leija, 71 -year-old female with a history of DCIS involving the right breast per ultrasound-guided biopsy breast on 08/24/2015. 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 As per patient she underwent routine mammogram on 08/11/2015 and it showed large area of very suspicious calcification at 12:00 position extending to the nipple. Patient was referred to surgeon but patient decided not to go for surgery or further evaluation. And about 3 months ago she noticed milky, not bloody ,discharge from her right nipple a . And also noticed lump in her right axilla and under her nipple. No other complaints, no bony pains. On 05/17/2017 she underwent right breast biopsy and right axillary lymph node biopsy and it showed infiltrating ductal carcinoma grade 3 ER/[place] negative HER-2/rekha negative lymph node biopsy from right axilla was positive for metastatic disease Status post adjuvant chemotherapy with Taxotere and Cytoxan ???4 from 07/26/2017 to 10/05/2017 s/p right hip pain for which hip replacementdone in June 2018 Recently underwent right chest wall wound excision and final pathology report shows chronic inflammation. Now with good healing. Due to lower extremity swellings she underwent venous Doppler study of lower extremity on 03/08/2018 which showed no DVT CT PET scan done on 05/12/2018 showed no evidence of recurrent or residual disease. DEXA scan done on November 28, 2019 showed osteopenia Came for follow-up, denies any specific complaint except pain in sternal area, she underwent cardiac monitoring, as per patient did not show any abnormality but still has discomfort/pain in sternal area, she denies any trauma to the anterior chest, denies any overlying skin changes, denies any cough or sore throat denies any fever chills denies any hemoptysis hematemesis, tolerating weekly Fosamax along with vitamin D and calcium well Medications: Antacid Calcium (500 mg) Tablet, chewable Oral daily, Aspirin 1 Tablet (of 81 mg) Tablet Oral daily, Atorvastatin Calcium 1 Tablet (of 80 mg) Oral daily, Benadryl 1 - 2 Tablet (of 25 mg) Oral q 4 to 6 hours PRN, Docusate Sodium 1 Tablet (of 100 mg) Oral daily, FLUoxetine HCl (10 mg) Capsule Oral daily, hydroCHLOROthiazide 1 Capsule (of 12.5 mg) Oral daily, Hydrocodone-Acetaminophen 1 Tablet (of 7.5-325 mg) Oral q 4 to 6 hours PRN, Isosorbide Mononitrate 1 Tablet (of 60 mg) Oral daily, LevETIRAcetam 1 Tablet (of 1000 mg) Oral b.i.d., Magnesium (400 mg) Tablet Oral daily, Metoprolol Succinate ER 1 Tablet (of 25 mg) Tablet SR 24 HR Oral daily, Nitroglycerin 1 (0.4 mg) Tablet, sublingual Sublingual PRN, Pantoprazole Sodium (40 mg) Tablet, enteric coated Oral b.i.d., Plavix 1 (75 mg) Tablet Oral daily, rOPINIRole HCl 1 Tablet (of 0.5 mg) Oral at bedtime, Sucralfate 1 Tablet (of 1 g) Oral t.i.d. PRN Allergies: Silvadene Review of Systems: Review of Systems is not available for this patient. Vital Signs: Vitals are not available for this patient. Performance Status: 1 - No physically strenuous activity, but ambulatory and able to carry out light or sedentary work (e.g. office work, light house work). (ECOG) Physical Examination: Respiratory - Lungs are clear to auscultation, Cardiovascular - Regular rate and rhythm of heart, Gastrointestinal - Soft, bowel sounds present, Extremities - No visible edema. Lab/Imaging: Most recent lab results are not available for this patient. Impression: 1. Infiltrating ductal carcinoma of right breast status post radical mastectomy with axillary dissection done on 06/22/2017 Size of invasive component 1.1 x 1 cm, grade 3, clear surgical margins pT1c 8 out of 15 axillary lymph nodes showed metastatic disease, tumor within capsule and extracapsular lymphatic spaces. pN2 ER negative [place] negative and HER-2/rekha negative Ki-67 41% Stage IIIa Status post adjuvant chemotherapy with Taxotere and Cytoxan ???4 from 07/26/2017 through 10/05/2017 2.Right hip replacement in June 2018, now left hip replacement is under consideration X-ray hip done on 11/13/2017 showed advanced degenerative arthritis both hips with complete loss of joint space and lvhg-vs-uiip articulation. Underlying sclerosis in the femoral heads suspicion for avascular necrosis CT PET scan done on 05/12/2018 showed no evidence of recurrent or residual disease Anemia normocytic normochromic etiology unclear could be underlying myelodysplasia or anemia of chronic disease patient has chronic arthritis involving bilateral hip right more than left. Resolved Osteopenia per DEXA scan done on November 28, 2019, on weekly Fosamax along with vitamin D and calcium Follow-up mammogram done on October 27, 2020 showed BI-RADS 2, benign Patient has history of seizure-like disorder since age 5, now being treated with Keppra, being managed by PMD Dr. Chapman Plan: Discussed with patient regarding her labs white blood count 4.9 hemoglobin 12.3 hematocrit 37.3 platelets 278,000 CMP within normal limit except alk phos 120 Clinically, patient is doing well with no new signs symptom except sternal pain, which could be due to arthritis/musculoskeletal or metastatic disease,, her alk phos is also elevated which could be multifactorial. At this point, will consider bone scan and she will return to clinic in 1 month with a bone scan for further discussion. Otherwise continue with weekly Fosamax along with vitamin D and calcium. Signed By: Ariana Reeder M.D. <<Signature on File>>
== END 2021-05-26 12:12 | disposition home or self-care (01) ==
LOC: ONCMED 12:15
PROVIDERS: PCP Electrodiagnostic Medicine; Visit Provider Internal Medicine Hematology & Oncology
DX: Z08 Encounter for follow-up examination after completed treatment for malignant neoplasm (principal); Z85.3 Personal history of malignant neoplasm of breast; M85.80 Other specified disorders of bone density and structure, unspecified site; Z79.83 Long term (current) use of bisphosphonates
CPT/HCPCS: 36415; 80053; 85025; 99214

== ENCOUNTER 2021-06-03 08:54 | Outpatient (CLI) | payer MEDICARE, SELFPAY ==
--- NOTE | 2021-06-03 09:01 | NM_ITS ---
WS: [id number] NUCLEAR MEDICINE WHOLE BODY BONE SCAN HISTORY: STERNAL PAIN INCREASED ALKALINE PHOSPHATASE. COMPARISON: 03/30/2021 chest radiograph. TECHNIQUE: The patient was injected with 25.6 mCi of Technetium 99m HDP and serial whole-body scintig gladis have been performed with anterior and posterior images. No areas of abnormal uptake throughout the spine or ribs. Photopenic defects at the femoral heads fro m prior arthroplasties. There is focal moderate increased uptake involving the RIGHT AC joint and RIG HT humeral head. These are most typical for distributions of degenerative joint disease. On recent ch est radiograph there were some cystic changes in the humeral head. Mild AC joint arthritis on the LEF T. Normal soft tissue uptake. Activity noted within the kidneys. NM/NM bone scan whole body* [id number] IMPRESSION: 1. No definite evidence for metastatic bone disease. 2. There is a single focus of increased uptake within the RIGHT humeral head w hich may be degenerative in etiology. On a recent chest radiograph no sclerotic changes were present. There are a few lytic changes in the humeral head which have been present on prior studies. This may be degenerative. This would be unu sual for single focus of metastatic disease. There is also moderate RIGHT AC denisha int arthritis.
== END 2021-06-03 08:55 | disposition home or self-care (01) ==
LOC: RAD 08:58
PROVIDERS: PCP Electrodiagnostic Medicine; Visit Provider Internal Medicine Hematology & Oncology
DX: R07.9 Chest pain, unspecified (principal); R74.8 Abnormal levels of other serum enzymes
CPT/HCPCS: 78306; A9561

== ENCOUNTER 2021-06-22 13:20 | Outpatient (CLI) | payer MEDICARE, SELFPAY ==
--- NOTE | 2021-06-22 13:30 | USCV_ITS ---
Karina Leija Age: 71 Gender: F : 1950 Exam Date: 06/22/2021 13:52 Ordering Phys: Chelsie Gamble Technologist: TONY Exam Location: [facility] [place] Indication: nonrhuematic aortic stenosis BP: 148 / 70 HR: 74 Rhythm: Sinus Technical Quality: Adequate MEASUREMENTS (Male / Female) Normal Values 2D ECHO LV Diastolic Diameter PLAX 4.6 cm 4.2 - 5.9 / 3.9 - 5.3 cm LV Systolic Diameter PLAX 3.1 cm IVS Diastolic Thickness 0.9 cm 0.6 - 1.0 / 0.6 - 0.9 cm IVS Systolic Thickness 1.3 cm LVPW Diastolic Thickness 1.1 cm 0.6 - 1.0 / 0.6 - 0.9 cm LVPW Systolic Thickness 1.2 cm LVOT Diameter 2.0 cm LV Ejection Fraction 2D Teich 62.5 % LV Ejection Fraction MOD 2C 52.9 % LV Ejection Fraction 2C AL 53.3 % LA Diameter 3.5 cm Aorta at Sinotubular Diameter 2.6 cm M-MODE Aortic Annulus Diameter 2.4 cm LA Ao Ratio MM 1.5 MV E Point Septal Separation 0.8 cm DOPPLER AV Peak Velocity 219.0 cm/s LVOT Peak Velocity 102.0 cm/s AV Area Cont Eq vti 1.4 cm squared AV Area Cont Eq pk 1.5 cm squared MV Peak Velocity 99.0 cm/s MV Area PHT 5.6 cm squared Mitral E to A Ratio 0.9 MV E' Velocity 51.0 cm/s Mitral E to MV E' Ratio 14.5 Mitral E to LV E' Lateral Ratio 12.3 Mitral E to LV E' Septal Ratio 18.1 TR Peak Velocity 230.0 cm/s TR Peak Gradient 21.2 mmHg TR Mean Velocity 170.8 cm/s TR Mean Gradient 12.8 mmHg TR Velocity Time Integral 71.9 cm TV Peak E Velocity 51.0 cm/s Right Atrial Pressure 3.0 mmHg Pulmonary Artery Systolic Pressu 24.2 mmHg PV Peak Velocity 74.0 cm/s RV Acceleration Time 0.1 s RV Ejection Time 0.3 s RV AcT/ET 0.4 FINDINGS Left Ventricle Normal left ventricular cavity size. Normal left ventricular systolic function. No regional wall motion abnormalities. Left ventricular ejection fraction is estimated at 60%. Grade I/IV diastolic dysfunction (abnormal relaxation filling pattern), normal to mildly elevated filling pressures. Right Ventricle The right ventricle is normal in size and function. Right Atrium The right atrium is normal in size. Left Atrium The left atrium is normal in size. Mitral Valve Structurally normal mitral valve without significant stenosis or prolapse. There is no mitral regurgitation. Aortic Valve Severe aortic valve calcification. Moderate aortic valve stenosis, mean gradient 10.4 mmHg, ZOYA 1.4 cm squared. Mild aortic valve regurgitation. Tricuspid Valve [id number]-ah-vabawwrn tricuspid valve regurgitation. Pulmonic Valve Structurally normal pulmonic valve without significant stenosis. There is no pulmonic regurgitation. Pericardium Normal pericardium without effusion. Aorta Normal ascending aorta dimension. CONCLUSIONS 1-Normal left ventricular cavity size. Normal left ventricular systolic function. No regional wall motion abnormalities. Left ventricular ejection fraction is estimated at 60%. Grade I/IV diastolic dysfunction (abnormal relaxation filling pattern), normal to mildly elevated filling pressures. 2-Severe aortic valve calcification. Moderate aortic valve stenosis, mean gradient 10.4 mmHg, ZOYA 1.4 cm squared. Mild aortic valve regurgitation. 9-Gqij-ln-moderate tricuspid valve regurgitation. 4-There is no pericardial effusion. 5-Right atrial pressure is around 5 mm of mercury. 6-When compared to the prior echocardiogram dated 15 August 2019 there is slight deterioration of aortic valve from 1.5 cm2 to 1.4 cm2 with worsening of aortic regurgitation to mild to moderate. Rafa Anna MD (Electronically Signed) Final Date: 23 June 2021 19:30 S
== END 2021-06-22 13:21 | disposition home or self-care (01) ==
PROVIDERS: PCP Electrodiagnostic Medicine; Visit Provider Nurse Practitioner Family
DX: I35.0 Nonrheumatic aortic (valve) stenosis (principal); I07.1 Rheumatic tricuspid insufficiency
CPT/HCPCS: 93306

== ENCOUNTER 2021-06-25 08:25 | Outpatient (CLI) | payer MEDICARE, SELFPAY ==
--- NOTE | 2021-06-25 09:38 | ONC FU_ITS ---
Dr. Reeder follow up note Patient: Karina Leija Unit #: [id number]: 1950 Dicatated By: Ariana Reeder M.D.Date of Visit:Jun 25, 2021 Onc Med Follow-up/Prog Note History of Present Illness: Mrs Karina Leija, 71 -year-old female with a history of DCIS involving the right breast per ultrasound-guided biopsy breast on 08/24/2015. 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 As per patient she underwent routine mammogram on 08/11/2015 and it showed large area of very suspicious calcification at 12:00 position extending to the nipple. Patient was referred to surgeon but patient decided not to go for surgery or further evaluation. And about 3 months ago she noticed milky, not bloody ,discharge from her right nipple a . And also noticed lump in her right axilla and under her nipple. No other complaints, no bony pains. On 05/17/2017 she underwent right breast biopsy and right axillary lymph node biopsy and it showed infiltrating ductal carcinoma grade 3 ER/[place] negative HER-2/rekha negative lymph node biopsy from right axilla was positive for metastatic disease Status post adjuvant chemotherapy with Taxotere and Cytoxan ???4 from 07/26/2017 to 10/05/2017 s/p right hip pain for which hip replacementdone in June 2018 Recently underwent right chest wall wound excision and final pathology report shows chronic inflammation. Now with good healing. Due to lower extremity swellings she underwent venous Doppler study of lower extremity on 03/08/2018 which showed no DVT CT PET scan done on 05/12/2018 showed no evidence of recurrent or residual disease. DEXA scan done on November 28, 2019 showed osteopenia Bone scan done on June 03, 2021 showed no definite evidence of metastatic disease. There is a single focus of increased uptake within the right humeral head which may be degenerative in etiology. And right AC joint arthritis, there are a few lytic lesions in the humeral head which have been present on prior studies. And this may be degenerative. tolerating weekly Fosamax along with vitamin D and calcium well Came for follow-up, denies any specific complaint except mild, off-and-on discomfort in sternal area, recently underwent bone scan and she is here to discuss the findings. Denies any fever chills denies any nausea or vomiting denies any diarrhea constipation denies any headaches blurred vision or double vision denies any chest pain or palpitation or dyspnea exertion.Patient denies any pain in her right shoulder or arm Medications: Antacid Calcium (500 mg) Tablet, chewable Oral daily, Aspirin 1 Tablet (of 81 mg) Tablet Oral daily, Atorvastatin Calcium 1 Tablet (of 80 mg) Oral daily, Benadryl 1 - 2 Tablet (of 25 mg) Oral q 4 to 6 hours PRN, Docusate Sodium 1 Tablet (of 100 mg) Oral daily, FLUoxetine HCl (10 mg) Capsule Oral daily, hydroCHLOROthiazide 1 Capsule (of 12.5 mg) Oral daily, Hydrocodone-Acetaminophen 1 Tablet (of 7.5-325 mg) Oral q 4 to 6 hours PRN, Isosorbide Mononitrate 1 Tablet (of 60 mg) Oral daily, LevETIRAcetam 1 Tablet (of 1000 mg) Oral b.i.d., LORazepam (0.5 mg) Tablet Oral Take as Directed, Magnesium (400 mg) Tablet Oral daily, Metoprolol Succinate ER 1 Tablet (of 25 mg) Tablet SR 24 HR Oral daily, Nitroglycerin 1 (0.4 mg) Tablet, sublingual Sublingual PRN, Pantoprazole Sodium (40 mg) Tablet, enteric coated Oral b.i.d., Plavix 1 (75 mg) Tablet Oral daily, rOPINIRole HCl 1 Tablet (of 0.5 mg) Oral at bedtime, Sucralfate 1 Tablet (of 1 g) Oral t.i.d. PRN Allergies: Silvadene Review of Systems: Review of Systems is not available for this patient. Vital Signs: Performed on Jun 25, 2021 08:35 Height - 64.00 in Weight - 175.4 lbs (HIGH) BSA - 1.85 sq.m BMI - 30.11 (HIGH) Temperature - 97.8 F (LOW) Pulse - 91 /min Respiration - 18 /min BP - 138/77 mm(hg) O2 Sat - 95 % (LOW) Pain - 0 Fatigue - 6 Performance Status: 0 - Fully active, able to carry on all predisease activities without restrictions. (ECOG) Physical Examination: Respiratory - Lungs are clear to auscultation, Cardiovascular - Regular rate and rhythm of heart with Systolic/Diastolic murmurs,, Gastrointestinal - Soft, bowel sounds present, Extremities - No visible edema. Lab/Imaging: Most recent lab results are not available for this patient. Impression: 1. Infiltrating ductal carcinoma of right breast status post radical mastectomy with axillary dissection done on 06/22/2017 Size of invasive component 1.1 x 1 cm, grade 3, clear surgical margins pT1c 8 out of 15 axillary lymph nodes showed metastatic disease, tumor within capsule and extracapsular lymphatic spaces. pN2 ER negative [place] negative and HER-2/rekha negative Ki-67 41% Stage IIIa Status post adjuvant chemotherapy with Taxotere and Cytoxan ???4 from 07/26/2017 through 10/05/2017 2.Right hip replacement in June 2018, now left hip replacement is under consideration X-ray hip done on 11/13/2017 showed advanced degenerative arthritis both hips with complete loss of joint space and xgxm-[id number] articulation. Underlying sclerosis in the femoral heads suspicion for avascular necrosis CT PET scan done on 05/12/2018 showed no evidence of recurrent or residual disease Anemia normocytic normochromic etiology unclear could be underlying myelodysplasia or anemia of chronic disease patient has chronic arthritis involving bilateral hip right more than left. Resolved Osteopenia per DEXA scan done on November 28, 2019, on weekly Fosamax along with vitamin D and calcium Follow-up mammogram done on October 27, 2020 showed BI-RADS 2, benign Because of sternal discomfort and elevated alk phos , bone scan done on June 03, 2021 which shows no definite evidence of metastatic bone disease. A single focus of increased uptake within the right humeral head may represent degenerative changes. There are a few lytic changes in the humeral head which have been present on prior studies, may be degenerative. Moderate right AC joint arthritis. Plan: Discussed with patient regarding her bone scan done on June 03, 2021 which shows no definite evidence of metastatic bone disease. A single focus of increased uptake within the right humeral head may represent degenerative changes. There are a few lytic changes in the humeral head which have been present on prior studies, may be degenerative. Moderate right AC joint arthritis. Clinically, patient has no worsening of symptoms except off and on sternal discomfort her bone scan shows no abnormality in sternal area for other bones causing concern regarding metastatic disease. So her symptoms could be cardiac related, now being evaluated by PMD, as patient recently underwent echocardiogram ordered by her PMD on June 23, 2021 which showed ejection fraction 60% patient has severe aortic valve calcification moderate aortic valve stenosis, mild to moderate tricuspid valve regurgitation , At this point, we will continue to monitor and she will return to clinic in 6 months with follow-up mammogram and CMP Signed By: Ariana Reeder M.D. <<Signature on File>>
== END 2021-06-25 08:26 | disposition home or self-care (01) ==
PROVIDERS: PCP Electrodiagnostic Medicine; Visit Provider Internal Medicine Hematology & Oncology
DX: Z08 Encounter for follow-up examination after completed treatment for malignant neoplasm (principal); Z85.3 Personal history of malignant neoplasm of breast; Z90.11 Acquired absence of right breast and nipple; Z96.641 Presence of right artificial hip joint; M85.80 Other specified disorders of bone density and structure, unspecified site
CPT/HCPCS: 99214

== ENCOUNTER 2021-09-02 16:56 | Emergency (ER) | payer MEDICARE, SELFPAY ==
[2021-09-02 17:11] VITALS: BP 180/82; PULSE 77; RESP 18; TEMP 36.8; O2SAT 92; BMI 29.8
--- NOTE | 2021-09-02 17:20 | W.ED.FALL ---
HPI - Fall General: Chief Complaint: Fall Stated Complaint: fall/facial injury Time Seen by Provider: 09/02/21 17:20 History of Present Illness: 71-year-old female comes in today for complaints of injuries to the face secondary to a fall. Patient also reports some neck and low back pain. Patient moves all extremities well. Patient ambulates with minimal to no difficulty. Patient reports that sister had removed a piece of glass from her laceration above the eye, and has some tenderness to the right lateral eyelid. Patient denies any loss of consciousness. Patient reports that tetanus is up-to-date. complaint: fall Onset (ago): hour(s) Fall from: standing Fall witnessed: yes, by family Place fall occurred: home Loss of consciousness: None Prolonged down time: no Symptoms prior to fall: none Location of injury: face, neck and back Associated symptoms-after fall: Denies chest pain Review of Systems General: Reports: 10 or more systems reviewed and unremarkable except in HPI and below Const: Denies: fever(s) Eyes: Reports: eye discomfort Card: Denies: chest pain Resp: Denies: dyspnea Musc: Reports: back pain Skin/Breast: Reports: new lesions [facility] ED PFSH: Medical History (Updated 09/02/21 @ 18:18 by PAWAN Posey) Angina pectoris Status post PCI to diagonal branch. No more angina Aortic stenosis, mild Stable CAD (coronary artery disease), [place] coronary artery Diagonal branch for significant ostial and proximal diagonal lesion. It was treated with 2 overlapping drug-eluting stents HLD (hyperlipidemia) Obesity Primary osteoarthritis of both hips Varicose vein of leg Surgical History History of total hip arthroplasty Hx of appendectomy Hx of hysterectomy Hx of right mastectomy Family History Grandmother CAD (coronary artery disease) Hypertension Father CAD (coronary artery disease) Cancer Diabetes Hypertension Lung disease Mother Cancer Dementia Diabetes Hypertension Daughter Chronic kidney disease (CKD) eldest Hypertension Daughter Chronic kidney disease (CKD) third child Sister Hyperlipidemia all sisters Hypertension Lung disease Unknown Suicide maternal aunt-GSW- mid 40s Denies family history of Clotting disorder Psychiatric illness Anesthesia complication Bleeding disorder Family history of premature coronary artery disease Stroke Social History Quit status (tobacco): has quit using tobacco Year quit tobacco: 2017 Second hand smoke exposure: Yes Alcohol intake: never History of recent travel: No Physical Exam Const: COMMON NORMALS: alert HENMT: COMMON NORMALS: TM's normal bilaterally and Normal external nose present FACE & SINUS: abrasion (Right periorbital area) and laceration (Irregular 1 cm right lateral eyebrow) NOSE: Normal external nose present TYMPANIC MEMBRANE: TM's normal bilaterally MOUTH: Normal oral and palatal mucosa present TEETH & GINGIVA: Yes edentulous THROAT: posterior oropharynx normal Neck/C-Spine: CERVICAL SPINE: Yes Cervical spine tenderness, No step off deformity and Yes Paracervical muscle tenderness Chest: COMMONS NORMALS: normal palpation of entire chest wall Resp: COMMON NORMALS: normal respiratory effort and clear to auscultation bilaterally AUSCULTATION: clear to auscultation bilaterally Cardio: COMMON NORMALS: regular rate and regular rhythm RATE: regular rate RHYTHM: regular rhythm GI: COMMON NORMALS: Soft to palpation and non-tender PALPATION: Yes Soft to palpation Back/Pelvis: COMMON NORMALS: straight leg raise negative bilaterally LUMBAR SPINE/LOWER BACK: Yes lumbar spinal tenderness and Yes paraspinal muscle tenderness Extremity: COMMON NORMALS: normal to inspection Neuro: SENSORIUM/ORIENTATION: Yes alert Psych: COMMON NORMALS: cooperative Skin: COMMON NORMALS: no rashes or lesions noted GENERAL SKIN EXAM: no rashes or lesions noted Procedures FB Removal Eye Location: eye (R) Topical anesthetic used: tetracaine Foreign body: other Evidence of corneal penetration: No Technique: irrigation Procedure performed under: direct visualization with magnification Post-procedure medication: ophthalmic antibiotic Patient tolerated procedure: well Laceration Laceration 1: Site: face Side (If applicable): right Size (cm): 1 Description: irregular Depth: simple, single layer Pre-repair: wound explored and irrigated extensively Skin layer closed with: other (skin adhesive) Course Vital Signs: Vital signs: Vital Signs Temperature 98.3 F 09/02/21 17:11 Pulse Rate 77 09/02/21 17:11 Respiratory Rate 18 09/02/21 17:11 Blood Pressure 180/82 09/02/21 17:11 Pulse Oximetry 92 09/02/21 17:11 MDM - Fall Medical Decision Making 71-year-old female comes in today with injury to the right brow, neck pain and back pain, and foreign body eye sensation after a fall today. Patient first gone to her primary care clinic but was referred to the ER due to concerns of injury. On exam patient has some tenderness in the cervical spine and the lumbar spine. Patient has abrasion with ecchymosis to the right periorbital region with a 1 cm irregular superficial laceration. Patient also reports some discomfort to the lateral eye. Under fluorescein stain no foreign body or significant corneal injury was noted. Differential diagnosis includes fracture of the neck or low back, intracranial bleeding, corneal abrasion, laceration, need for prophylaxis tetanus. Patient's tetanus was up-to-date. CT of the head indicated no fracture or intracranial bleeding. X-rays of the neck and low back noted some degenerative disc disease but no acute fractures. Wound was thoroughly irrigated and closed with skin adhesive. Patient will be continued on Maxitrol eyedrops 1 drop 4 times a day for the next 7 days. Recommended patient follow-up with eye patient care nursing assistant in 2 to 3 days for recheck of the eye. Recommended patient follow-up with primary care as needed. Discussed reasons to return to the ER for further evaluation and treatment. Patient reported understanding. Lab Data Radiology Impressions Cervical Spine X-Ray 09/02/21 17:26 IMPRESSION: 1. No fracture identified. 2. Anterior subluxation of C3 on C4 is most likely degenerative. Head CT 09/02/21 17:26 IMPRESSION: 1. No acute intracranial abnormality. Lumbar Spine X-Ray 09/02/21 17:26 IMPRESSION: No fracture or acute finding. Discharge Plan Discharge Patient Disposition: Home Clinical Impression: Sensation of foreign body in eye, Neck pain Fall Qualifiers: Encounter type: initial encounter Qualified Code(s): W19.XXXA - Unspecified fall, initial encounter Acute back pain Qualifiers: Back pain location: low back pain Back pain laterality: unspecified Sciatica presence: without sciatica Qualified Code(s): M54.50 - Low back pain, unspecified Laceration of brow without complication Qualifiers: Encounter type: initial encounter Qualified Code(s): S01.81XA - Laceration without foreign body of other part of head, initial encounter Condition: Stable Prescriptions: No Action fluoxetine 20 mg capsule 20 mg PO BEDTIME 0RF clopidogrel 75 mg tablet 75 mg PO DAILY@20 Qty: 90 3RF aspirin 81 mg tablet,delayed release (DR/EC) 81 mg PO QAM 0RF docusate sodium [Colace] 100 mg capsule 100 mg PO BID 0RF calcium carbonate-vitamin D3 [Calcium 600 with Vitamin D3] 600 mg(1,500mg) -500 unit capsule 1 cap PO DAILY@20 0RF atorvastatin 80 mg tablet 80 mg PO DAILY@20 0RF nitroglycerin 0.4 mg tablet, sublingual 0.4 mg SUBLINGUAL Q5M PRN (Reason: chest pain) Qty: 30 2RF Rx Instructions: until response; do not exceed 3 doses per episode potassium chloride 10 mEq tablet extended release 10 meq PO DAILY PRN (Reason: Take with Lasix as needed for swelling) Qty: 90 3RF furosemide 20 mg tablet 20 mg PO DAILY PRN (Reason: weight gain) Qty: 90 3RF ferrous sulfate 325 mg (65 mg iron) tablet 325 mg PO DAILY 0RF hydrochlorothiazide 12.5 mg capsule 12.5 mg PO DAILY 0RF ondansetron HCl [Zofran] 4 mg tablet 4 mg PO Q6H PRN (Reason: nausea and vomiting) Qty: 20 0RF albuterol sulfate 2.5 mg /3 mL (0.083 %) solution for nebulization 2.5 mg inhalation Q4H PRN (Reason: Shortness Of Breath) 0RF albuterol sulfate 90 mcg/actuation HFA aerosol inhaler 2 puff INHALATION Q4H PRN (Reason: Shortness Of Breath) 0RF Breo Ellipta 100-25 mcg/dose blister with device 1 inh INHALATION DAILY@09 0RF isosorbide mononitrate 60 mg tablet extended release 24 hr 60 mg PO QAM 0RF alendronate 35 mg Tablet 35 mg PO Q7D 0RF Rx Instructions: on monday Spiriva with HandiHaler 18 mcg Capsule, W/Inhalation Device 1 cap INHALATION DAILY PRN (Reason: rx last filled 06/04/20) 0RF hydrocodone-acetaminophen 5-325 mg tablet 1 tab PO Q8H PRN (Reason: Pain) 0RF sucralfate 1 gram tablet 1 g PO QID PRN (Reason: ulcers) 0RF ropinirole 0.5 mg tablet 0.5 mg PO BEDTIME 0RF levetiracetam 750 mg tablet 750 mg PO BID 0RF metoprolol tartrate 25 mg tablet 12.5 mg PO BID 0RF magnesium Tablet 1 tab PO BEDTIME 0RF pantoprazole 40 mg tablet,delayed release (DR/EC) 40 mg PO QAM 0RF Discharge Orders: Discharge ED (Routine); Ordered 09/02/21 Ordered By: Noel Graves Referrals: Justin Chapman DO [Primary Care Provider] - Discharge Diet: Usual diet Discharge Activity: Increase activity as tolerated Patient Instructions: Skin Adhesive Care (ED), Fall Prevention (ED) Activity Restrictions/Additional Instructions: Use antibiotic eyedrops 1 drop to the affected eye 4 times a day for the next 7 days. Follow-up with eye patient care nursing assistant in 2 to 3 days for recheck. Follow-up with primary care as needed. Return to ER for new concerns or worsening symptoms. Coding Level of Care Code ED Rehabilitation Tech for Phillip 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
--- NOTE | 2021-09-02 17:26 | XRR_ITS ---
PROCEDURE INFORMATION: Exam: XR Cervical Spine Exam date and time: 09/02/2021 5:31 PM Age: 71 years old Clinical indication: Injury or trauma; Fall; Blunt trauma; Additional info: Fall, normal rom TECHNIQUE: Imaging protocol: XR of the cervical spine. Views: 2 or 3 views. COMPARISON: [place] bone scan whole body* [id number] 06/03/2021 9:01 AM FINDINGS: Bones/joints: The vertebral body stature is maintained. Anterior subluxation of C3 on C4. Disc space narrowing at C4-C5 and C5-C6 with degenerative endplate changes. The facets are intact with degenerative changes. Soft tissues: Unremarkable. XR/XR cervical spine 3V* [id number] IMPRESSION: 1. No fracture identified. 2. Anterior subluxation of C3 on C4 is most likely degenerative.
--- NOTE | 2021-09-02 17:26 | XRR_ITS ---
PROCEDURE INFORMATION: Exam: XR Lumbosacral Spine Exam date and time: 09/02/2021 5:31 PM Age: 71 years old Clinical indication: Injury or trauma; Fall; Blunt trauma (contusions or hematomas); Additional info: Fall, injury TECHNIQUE: Imaging protocol: XR of the lumbosacral spine. Views: 2 or 3 views. COMPARISON: CT lumbar spine wo con* [id number] 08/15/2019 8:58 AM FINDINGS: Bones/joints: The vertebral body stature is intact. Mild degenerative endplate changes. The facets are intact. Partially visualized hip arthroplasty screw. Soft tissues: Unremarkable. Vasculature: Arterial calcifications. XR/XR lumbar spine 2-3V* [id number] IMPRESSION: No fracture or acute finding.
--- NOTE | 2021-09-02 17:26 | CTR_ITS ---
PROCEDURE INFORMATION: Exam: CT Head Without Contrast Exam date and time: 09/02/2021 5:38 PM Age: 71 years old Clinical indication: Injury or trauma; Fall; Blunt trauma (contusions or hematomas); Without loss of consciousness; Additional info: Fall injury TECHNIQUE: Imaging protocol: Computed tomography of the head without contrast. Radiation optimization: All CT scans at this facility use at least one of these dose optimization techniques: automated exposure control; mA and/or kV adjustment per patient size (includes targeted exams where dose is matched to clinical indication); or iterative reconstruction. COMPARISON: MR head wo con* [id number] 08/19/2019 10:24 AM RADIATION DOSE METRICS: Total DLP (mGy-cm): 765.4 FINDINGS: Brain: Mild cortical volume loss. Mild hypodensities in supratentorial periventricular and subcortical white matter, consistent with microangiopathy. No intracranial hemorrhage. Cerebral ventricles: No ventriculomegaly. Paranasal sinuses: Visualized sinuses are unremarkable. No fluid levels. Mastoid air cells: Visualized mastoid air cells are well aerated. Orbital cavities: Prior cataract surgery. Vasculature: No hyperdense artery. Bones/joints: Unremarkable. No acute fracture. Soft tissues: Unremarkable. CT/CT head wo con* [id number] IMPRESSION: 1. No acute intracranial abnormality.
[2021-09-02] MEDS: eye irrigation 30 mL Btl EYE-RIGHT (17:46)
[2021-09-02] MEDS: fluorescein 1 mg Strip EYE-RIGHT (17:47)
[2021-09-02] MEDS: tetracaine 0.5% Op Soln 4 mL Btl 1 DROP EYE-RIGHT (17:47)
[2021-09-02] MEDS: neomycin-poly-dex Op 5 mL Btl 2 DROP EYE-RIGHT (17:49)
== END 2021-09-02 18:29 | disposition home or self-care (01) ==
PROVIDERS: Emergency Provider Nurse Practitioner Family; PCP Electrodiagnostic Medicine
DX: S01.111A Laceration without foreign body of right eyelid and periocular area, initial encounter (principal); W19.XXXA Unspecified fall, initial encounter; M54.50 Low back pain, unspecified
CPT/HCPCS: 12011; 70450; 72040; 72100; 99283

== ENCOUNTER 2021-12-08 08:22 | Outpatient (CLI) | payer MEDICARE, SELFPAY ==
--- NOTE | 2021-12-08 08:38 | MM_ITS ---
WS: [id number] DIAGNOSTIC LEFT DIGITAL BREAST TOMOSYNTHESIS MAMMOGRAPHY WITH CAD. HISTORY: HX OF BREAST CA;RT MAST COMPARISON: 10/27/2020, 10/24/2019 and 04/28/2017 Technique: CC, MLO and ML views. Breast composition: The breasts are heterogeneously dense, which may obscure small masses. Asymmetri es are stable. No nipple retraction. Benign vascular calcifications. MM/[place] [id number] IMPRESSION: BI-RADS: 2-Benign FOLLOW UP: 1 Year Follow-up
== END 2021-12-08 08:23 | disposition home or self-care (01) ==
PROVIDERS: PCP Electrodiagnostic Medicine; Visit Provider Internal Medicine Hematology & Oncology
DX: Z85.3 Personal history of malignant neoplasm of breast (principal); Z90.11 Acquired absence of right breast and nipple
CPT/HCPCS: 77061

== ENCOUNTER 2021-12-24 13:18 | Outpatient (CLI) | payer MEDICARE, SELFPAY ==
--- NOTE | 2021-12-24 13:42 | MR_ITS ---
WS: [id number] MRI HEAD WITHOUT CONTRAST TECHNIQUE: Sagittal T1, T2 axial, T2 axial FLAIR, axial and coronal T1 images, axial susceptibility w eighted imaging, axial diffusion weighted images, and coronal T2 images were obtained. CLINICAL INFORMATION: BULBAR PALSY COMPARISON: MRI August 19, 2019 FINDINGS: No evidence of restricted diffusion to suggest acute ischemia. Ventricular system and basal cisterns are patent. Mild supratentorial white matter changes consistent with small vessel disease in a patien t this age stable compared to August 19, 2019. Only mild parenchymal volume loss. Normal posterior fos sa. No extra-axial fluid collections. Paranasal sinuses and mastoid air cells appear well aerated. Noncontrast IACs appear normal. Normal trigeminal nerve root entry zones. Normal brain stem. Mild sma ll vessel changes in the rose. No hemosiderin on susceptibly weighted images. Normal optic chiasm and pituitary infundibulum. Tempor al lobes and hippocampal formations appear normal. No other remarkable findings. MR/MR head wo con* [id number] IMPRESSION: 1. No evidence of restricted diffusion to suggest acute ischemia. 2. Mild small vessel changes with minimal parenchymal volume loss. Mild small vessel changes in the rose. This appears stable compared to previous. 3. Brain stem signal appears normal. 4. No hemosiderin on susceptibly weighted images. 5. Temporal lobes and hippocampal formations demonstrate mild symmetric atroph y. No signal abnormalities. 6. No other remarkable findings. MRI head without contrast was performed. Scan was terminated due to seizure act ivity prior to administration of gadolinium. Rapid response was called and ronan ent was stable and coherent after 1 to 2 minutes seizure activity. Patient [place] sferred to the ER for further evaluation Notified Dr Easton in ER at time of examination 12/24/2021 3:04 PM Notified Jovanny Brown MD at 12/24/2021 3:02 PM.
== END 2021-12-24 13:19 | disposition home or self-care (01) ==
PROVIDERS: PCP Electrodiagnostic Medicine; Visit Provider Family Medicine
DX: G12.22 Progressive bulbar palsy (principal)
CPT/HCPCS: 70551

== ENCOUNTER 2021-12-24 14:50 | Emergency (ER) | payer MEDICARE, SELFPAY ==
[2021-12-24] VITALS (8 sets, daily range): BP systolic 141–175; BP diastolic 64–88; PULSE 60–65; RESP 10–26; O2SAT 74–95; BMI 29.0
--- NOTE | 2021-12-24 14:58 | W.ED.SEIZURE ---
Documented by User: Luke Easton MD 01/04/22 04:10 HPI - Seizure General: Chief Complaint: Seizure Stated Complaint: SEIZURE Time Seen by Provider: 12/24/21 14:58 History of Present Illness: HPI Narrative: Ms. Leija is a 71-year-old lady with history of stroke, CAD, seizures who presents to the emergency department due to seizure activity as a rapid response from MRI. She reports a few day history of generalized infectious viral syndrome with sore throat, cough, diarrhea, generalized malaise. She was seen by PCP and had MRI. [facility] through imaging, prior to administration of gadolinium, patient began to have a tingling numb feeling which felt like pressure throughout her entire body. She subsequently had loss of consciousness and reported seizure. Upon initial assessment patient is not postictal. She reports history of seizures but is unsure if she has been diagnosed previously with epilepsy. She is on Keppra which she has been taking and has not missed any. Typically seizures are well controlled and she reports feel different though are reported to be tonic-clonic in nature. Overall course of symptoms has improved. Difficult to quantify maximum intensity. No other specific changes in health, exacerbating, or alleviating factors identified. Onset (ago): day(s) Description of Episode: loss of consciousness Witnessed: Yes - by Other Trauma: No Seizure History: Yes Place: Hospital Possible Precipitating Event: other Review of Systems General: Reports: 10 or more systems reviewed and unremarkable except in HPI and below PFSH ED PFSH: Medical History Angina pectoris Status post PCI to diagonal branch. No more angina Aortic stenosis, mild Stable CAD (coronary artery disease), false pass coronary artery Diagonal branch for significant ostial and proximal diagonal lesion. It was treated with 2 overlapping drug-eluting stents HLD (hyperlipidemia) Obesity Primary osteoarthritis of both hips Varicose vein of leg Surgical History History of total hip arthroplasty Hx of appendectomy Hx of hysterectomy Hx of right mastectomy Family History Grandmother CAD (coronary artery disease) Hypertension Father CAD (coronary artery disease) Cancer Diabetes Hypertension Lung disease Mother Cancer Dementia Diabetes Hypertension Daughter Chronic kidney disease (CKD) eldest Hypertension Daughter Chronic kidney disease (CKD) third child Sister Hyperlipidemia all sisters Hypertension Lung disease Unknown Suicide maternal aunt-GSW- mid 40s Denies family history of Clotting disorder Psychiatric illness Anesthesia complication Bleeding disorder Family history of premature coronary artery disease Stroke Social History Smoking and tobacco status: former smoker (Quit 5 years ago) Quit status (tobacco): has quit using tobacco Year quit tobacco: 2017 Second hand smoke exposure: Yes Alcohol intake: never History of recent travel: No Physical Exam Const: COMMON NORMALS: patient oriented x3 and alert GENERAL APPEARANCE: cooperative and well developed HENMT: COMMON NORMALS: normocephalic and atraumatic HEAD & SCALP: normocephalic and atraumatic THROAT: posterior oropharynx normal Eye: COMMON NORMALS: conjunctivae normal CONJUNCTIVA: Yes conjunctivae normal SCLERA: sclerae normal Neck/C-Spine: COMMON NORMALS: supple GENERAL: Yes trachea midline Resp: COMMON NORMALS: normal respiratory effort and clear to auscultation bilaterally EFFORT & INSPECTION: Yes able to speak in complete sentences AUSCULTATION: clear to auscultation bilaterally Cardio: COMMON NORMALS: regular rate and regular rhythm RATE: regular rate RHYTHM: regular rhythm GI: COMMON NORMALS: Soft to palpation PALPATION: Yes Soft to palpation and No Tenderness to palpation present (GI) Extremity: GENERAL: Yes normal exam except as noted and No edema Neuro: COMMON NORMALS: patient oriented x3, CN's II-XII intact bilaterally, moves all extremities, no focal motor deficits and no sensory deficits noted SENSORIUM/ORIENTATION: Yes alert and No Orientation impaired Psych: COMMON NORMALS: mental status grossly normal and Normal thought process present THOUGHT PROCESS: Normal thought process present Course ED course: - Patient was seen and evaluated by me at bedside - Patient placed on cardiac monitors, IV access obtained - Initial evaluation notable for exam as above. EKG reviewed showing sinus bradycardia, no STEMI - Labs and xrays personally interpreted by me - Labs notable for no leukocytosis, normal hemoglobin. Metabolic panel without acute derangement to explain symptoms. Delta troponin negative. Urinalysis not concerning for urinary tract infection. - Imaging notable for no acute pathology identified on chest x-ray. - Upon serial reexamination after treatment the patient was similar - Based on patient history, evaluation, and testing as interpreted the most likely cause of the patient's condition is recurrent seizure. - Patient care handed off to Dr. Valdez pending completion of CTA and chest CT. Patient already had an MRI though she did not receive gadolinium contrast for completion of study there is no evidence of acute ischemia Vital Signs: Vital signs: Vital Signs Pulse Rate 60 12/24/21 19:41 Respiratory Rate 20 H 12/24/21 19:41 Blood Pressure 162/88 12/24/21 19:41 Pulse Oximetry 95 12/24/21 19:41 Oxygen Delivery Me thod 12/24/21 16:00 Oxygen Flow Rate 2 12/24/21 16:00 MDM - Seizure MDM Narrative Medical decision making narrative: 71-year-old lady presenting with seizure while getting MRI prior to gadolinium administration. Upon assessment patient is back to baseline. She does have a history of seizure disorder. No focal neurologic deficits. ED evaluation largely unremarkable with patient care handed off to Dr. Valdez pending completion of ED evaluation specifically completion of additional imaging. Patient presents here with a seizure patient has follow-up with [facility] on Monday patient CT angio here is normal everything is well-appearing she is stable for discharge she is to follow-up as scheduled return if worsening she understands agrees to plan. Medical Records Attestation: I reviewed the patient's medical records. Lab Data Attestation: I reviewed the patient's lab results. Result diagrams: 12/24/21 15:10 12/24/21 15:10 Labs: Radiology Impressions Chest X-Ray 12/24/21 15:10 IMPRESSION: 1. No acute cardiopulmonary finding. No change. Head/Neck CTA 12/24/21 17:03 IMPRESSION: 1. Stable mild atherosclerotic disease at the cavernous segments of the right and left internal carotid arteries. No occlusion, thrombosis, stenosis, extravasation, dissection, or aneurysm. 2. The right posterior cerebral artery arises from the supraclinoid segment of the right internal carotid artery. 3. The posterior communicating arteries are not visualized. The posterior communicating arteries may be congenitally absent, or may be too small for the resolution capabilities of this study. IMPRESSION: 1. Stable [id number] atherosclerotic disease. Stable 40% stenosis at the origin of the left internal carotid artery. No occlusion, thrombosis, extravasation, dissection, or aneurysm. 2. Incidental/nonacute findings are listed in the report. REFERENCES: NASCET CRITERIA. The degree of internal carotid artery stenosis is based on NASCET criteria. Normal is no stenosis. Mild is less than 50% stenosis. Moderate is 50-69% stenosis. Severe is 70% to 99% stenosis. Total occlusion is no detectable patent lumen. Chest CT 12/24/21 17:17 IMPRESSION: Negative for acute pulmonary disease. Laboratory Results WBC 5.7 10^3/uL (4.0-10.0) 12/24/21 15:10 RBC 3.82 10^6/uL (4.1-5.3) L 12/24/21 15:10 Hgb 11.9 g/dL (11.5-15.3) 12/24/21 15:10 Hct 36.4 % (37.0-47.0) L 12/24/21 15:10 MCV 95.3 fl (81-99) 12/24/21 15:10 MCH 31.2 pg (28.0-34.0) 12/24/21 15:10 MCHC 32.7 g/dL (30.0-36.0) 12/24/21 15:10 RDW 13.5 % (12.1-15.1) 12/24/21 15:10 Plt Count 257 10^3/cmm (130-400) 12/24/21 15:10 MPV 9.9 fL (7.4-10.4) 12/24/21 15:10 Neut % (Auto) 69.6 % 12/24/21 15:10 Lymph % (Auto) 21.0 % 12/24/21 15:10 [place] % (Auto) 5.6 % 12/24/21 15:10 Eos % (Auto) 2.5 % 12/24/21 15:10 Baso % (Auto) 0.9 % 12/24/21 15:10 Neut # (Auto) 3.95 10^3/uL (1.8-7.7) 12/24/21 15:10 Lymph # (Auto) 1.2 10^3/uL (0.8-4.8) 12/24/21 15:10 [place] # (Auto) 0.3 10^3/uL (0.2-0.9) 12/24/21 15:10 Eos # (Auto) 0.1 10^3/uL (0.0-0.8) 12/24/21 15:10 Baso # (Auto) 0.1 10^3/uL (0.0-0.1) 12/24/21 15:10 Nucleated RBC % (auto) 0 % 12/24/21 15:10 Nucleated RBCs # 0.0 /100WBC 12/24/21 15:10 Sodium 136 mmol/L (136-145) 12/24/21 15:10 Potassium 4.1 mmol/L (3.5-5.1) 12/24/21 15:10 Chloride 99 mmol/L (98-107) 12/24/21 15:10 Carbon Dioxide 26 mmol/L (22-29) 12/24/21 15:10 Anion Gap 15.1 (5-19) 12/24/21 15:10 BUN 14 mg/dL (8-23) 12/24/21 15:10 Creatinine 1.0 mg/dL (0.5-0.9) H 12/24/21 15:10 GFR Calculation Not Reportable 12/24/21 15:10 Glucose 84 mg/dL (65-115) 12/24/21 15:10 Calculated Osmolality 282 mOsm/kg (285-295) L 12/24/21 15:10 Calcium 8.9 mg/dL (8.5-10.5) 12/24/21 15:10 Total Bilirubin 0.3 mg/dL (0.15-1.2) 12/24/21 15:10 AST 20 U/L (0-32) 12/24/21 15:10 ALT 17 U/L (0-33) 12/24/21 15:10 Alkaline Phosphatase 136 IU/L (35-105) H 12/24/21 15:10 Creatine Kinase 62 U/L (26-192) 12/24/21 15:10 Troponin T Baseline 9 ng/L (0-10) 12/24/21 15:10 Troponin T 120 Minute 7.31 ng/L (0-10) 12/24/21 17:12 Delta Troponin T -1.69 ABS# (0-10) L 12/24/21 17:12 Total Protein 6.0 g/dL (6.6-8.7) L 12/24/21 15:10 Albumin 4.0 g/dL (3.5-5.2) 12/24/21 15:10 Globulin 2.0 g/dL (1.3-4.6) 12/24/21 15:10 TSH 3.60 uIU/mL (0.27-4.20) 12/24/21 15:10 Urine Color Yellow (Yellow) 12/24/21 16:20 Urine Appearance Clear (CLEAR) 12/24/21 16:20 Urine pH 7 (5-7) 12/24/21 16:20 Ur Specific [place] 1.005 (1.005-1.030) 12/24/21 16:20 Urine Protein Neg (Negative) 12/24/21 16:20 Urine Glucose (UA) Norm (Normal) 12/24/21 16:20 Urine Ketones Negative (Negative) 12/24/21 16:20 Urine Blood Neg (Negative) 12/24/21 16:20 Urine Nitrate Negative (Negative) 12/24/21 16:20 Urine Bilirubin Neg (Negative) 12/24/21 16:20 Urine Urobilinogen Norm mg/dL (Negative) 12/24/21 16:20 Ur Leukocyte Esterase Negative (Negative) 12/24/21 16:20 Group A Strep Rapid Negative (Negative) 12/24/21 16:20 Discharge Plan Discharge Patient Disposition: Home Clinical Impression: Generalized seizure Condition: Stable Prescriptions: New diazepam 10 mg/spray (0.1 mL) spray,non-aerosol 10 mg intranasal Q5MIN PRN (Reason: seizures) Qty: 2 0RF Rx Instructions: seizure longer than 5 minutes or multiple without return to baseline. No Action aspirin 81 mg tablet,delayed release (DR/EC) 81 mg PO QAM docusate sodium [Colace] 100 mg capsule 100 mg PO BID calcium carbonate-vitamin D3 [Calcium 600 with Vitamin D3] 600 mg(1,500mg) -500 unit capsule 1 cap PO DAILY@20 atorvastatin 80 mg tablet 80 mg PO DAILY@20 levetiracetam 1,000 mg tablet 1,000 mg PO BID Qty: 60 2RF Rx Instructions: Take 1 tablet twice daily nitroglycerin 0.4 mg tablet, sublingual 0.4 mg SUBLINGUAL Q5M PRN (Reason: chest pain) Qty: 30 2RF Rx Instructions: until response; do not exceed 3 doses per episode clopidogrel 75 mg tablet 75 mg PO DAILY@20 Qty: 90 1RF albuterol sulfate 2.5 mg /3 mL (0.083 %) solution for nebulization 2.5 mg inhalation Q4H PRN (Reason: Shortness Of Breath) albuterol sulfate 90 mcg/actuation HFA aerosol inhaler 2 puff INHALATION Q4H PRN (Reason: Shortness Of Breath) fluticasone furoate-vilanterol [Breo Ellipta] 100-25 mcg/dose blister with device 1 inh INHALATION DAILY@09 isosorbide mononitrate 60 mg tablet extended release 24 hr 60 mg PO QAM Spiriva with HandiHaler 18 mcg Capsule, W/Inhalation Device 1 cap INHALATION DAILY PRN (Reason: Shortness Of Breath) ropinirole 0.5 mg tablet 0.5 mg PO BEDTIME metoprolol tartrate 25 mg tablet 12.5 mg PO BID pantoprazole 40 mg tablet,delayed release (DR/EC) 40 mg PO QAM citalopram 20 mg tablet 20 mg PO DAILY Discharge Orders: Discharge ED (Routine); Ordered 12/24/21 Ordered By: Daren Valdez Referrals: Keara Duncan MD [Physician] - 1-3 days Justin Chapman DO [Primary Care Provider] - Discharge Diet: Usual diet Discharge Activity: Limit activity as instructed Patient Instructions: Recurrent Seizures in Adults (ED), Opioid Safety Activity Restrictions/Additional Instructions: Thank you for visiting the emergency department. You were seen and evaluated for seizure. The exact cause of your seizure is unclear. As discussed with your primary care doctor you do need further follow-up. Please go to Dr. Duncan's office on Monday. Please continue all seizure precautions and all of your medications. I will also prescribe nasal diazepam for seizures lasting longer than 5 minutes or multiple seizures without return to baseline in between. If you need to use this medication please also call 911. Please return to the emergency department for recurrent seizures, any new neurologic symptoms, or anything else that you are concerned about a feel needs emergency department evaluation. Coding Level of Care Code ED Multimedia Programmer for Chg Fwd Documented by User: Daren Valdez MD 12/24/21 19:28 HPI - Seizure General: Chief Complaint: Seizure Stated Complaint: SEIZURE Time Seen by Provider: 12/24/21 14:58 PFSH ED PFSH: Medical History Angina pectoris Status post PCI to diagonal branch. No more angina Aortic stenosis, mild Stable CAD (coronary artery disease), false pass coronary artery Diagonal branch for significant ostial and proximal diagonal lesion. It was treated with 2 overlapping drug-eluting stents HLD (hyperlipidemia) Obesity Primary osteoarthritis of both hips Varicose vein of leg Surgical History History of total hip arthroplasty Hx of appendectomy Hx of hysterectomy Hx of right mastectomy Family History Grandmother CAD (coronary artery disease) Hypertension Father CAD (coronary artery disease) Cancer Diabetes Hypertension Lung disease Mother Cancer Dementia Diabetes Hypertension Daughter Chronic kidney disease (CKD) eldest Hypertension Daughter Chronic kidney disease (CKD) third child Sister Hyperlipidemia all sisters Hypertension Lung disease Unknown Suicide maternal aunt-GSW- mid 40s Denies family history of Clotting disorder Psychiatric illness Anesthesia complication Bleeding disorder Family history of premature coronary artery disease Stroke Social History Smoking and tobacco status: former smoker (Quit 5 years ago) Quit status (tobacco): has quit using tobacco Year quit tobacco: 2017 Second hand smoke exposure: Yes Alcohol intake: never History of recent travel: No Course Vital Signs: Vital signs: Vital Signs Pulse Rate 60 12/24/21 19:41 Respiratory Rate 20 H 12/24/21 19:41 Blood Pressure 162/88 12/24/21 19:41 Pulse Oximetry 95 12/24/21 19:41 Oxygen Delivery Me thod 12/24/21 16:00 Oxygen Flow Rate 2 12/24/21 16:00 MDM - Seizure MDM Narrative Medical decision making narrative: Patient presents here with a seizure patient has follow-up with [facility] on [place] patient CT angio here is normal everything is well-appearing she is stable for discharge she is to follow-up as scheduled return if worsening she understands agrees to plan. Lab Data Result diagrams: 12/24/21 15:10 12/24/21 15:10 Labs: Radiology Impressions Chest X-Ray 12/24/21 15:10 IMPRESSION: 1. No acute cardiopulmonary finding. No change. Head/Neck CTA 12/24/21 17:03 IMPRESSION: 1. Stable mild atherosclerotic disease at the cavernous segments of the right and left internal carotid arteries. No occlusion, thrombosis, stenosis, extravasation, dissection, or aneurysm. 2. The right posterior cerebral artery arises from the supraclinoid segment of the right internal carotid artery. 3. The posterior communicating arteries are not visualized. The posterior communicating arteries may be congenitally absent, or may be too small for the resolution capabilities of this study. IMPRESSION: 1. Stable behu-wu-rnexjnbr atherosclerotic disease. Stable 40% stenosis at the origin of the left internal carotid artery. No occlusion, thrombosis, extravasation, dissection, or aneurysm. 2. Incidental/nonacute findings are listed in the report. REFERENCES: NASCET CRITERIA. The degree of internal carotid artery stenosis is based on NASCET criteria. Normal is no stenosis. Mild is less than 50% stenosis. Moderate is 50-69% stenosis. Severe is 70% to 99% stenosis. Total occlusion is no detectable patent lumen. Chest CT 12/24/21 17:17 IMPRESSION: Negative for acute pulmonary disease. Laboratory Results WBC 5.7 10^3/uL (4.0-10.0) 12/24/21 15:10 RBC 3.82 10^6/uL (4.1-5.3) L 12/24/21 15:10 Hgb 11.9 g/dL (11.5-15.3) 12/24/21 15:10 Hct 36.4 % (37.0-47.0) L 12/24/21 15:10 MCV 95.3 fl (81-99) 12/24/21 15:10 MCH 31.2 pg (28.0-34.0) 12/24/21 15:10 MCHC 32.7 g/dL (30.0-36.0) 12/24/21 15:10 RDW 13.5 % (12.1-15.1) 12/24/21 15:10 Plt Count 257 10^3/cmm (130-400) 12/24/21 15:10 MPV 9.9 fL (7.4-10.4) 12/24/21 15:10 Neut % (Auto) 69.6 % 12/24/21 15:10 Lymph % (Auto) 21.0 % 12/24/21 15:10 [place] % (Auto) 5.6 % 12/24/21 15:10 Eos % (Auto) 2.5 % 12/24/21 15:10 Baso % (Auto) 0.9 % 12/24/21 15:10 Neut # (Auto) 3.95 10^3/uL (1.8-7.7) 12/24/21 15:10 Lymph # (Auto) 1.2 10^3/uL (0.8-4.8) 12/24/21 15:10 [place] # (Auto) 0.3 10^3/uL (0.2-0.9) 12/24/21 15:10 Eos # (Auto) 0.1 10^3/uL (0.0-0.8) 12/24/21 15:10 Baso # (Auto) 0.1 10^3/uL (0.0-0.1) 12/24/21 15:10 Nucleated RBC % (auto) 0 % 12/24/21 15:10 Nucleated RBCs # 0.0 /100WBC 12/24/21 15:10 Sodium 136 mmol/L (136-145) 12/24/21 15:10 Potassium 4.1 mmol/L (3.5-5.1) 12/24/21 15:10 Chloride 99 mmol/L (98-107) 12/24/21 15:10 Carbon Dioxide 26 mmol/L (22-29) 12/24/21 15:10 Anion Gap 15.1 (5-19) 12/24/21 15:10 BUN 14 mg/dL (8-23) 12/24/21 15:10 Creatinine 1.0 mg/dL (0.5-0.9) H 12/24/21 15:10 GFR Calculation Not Reportable 12/24/21 15:10 Glucose 84 mg/dL (65-115) 12/24/21 15:10 Calculated Osmolality 282 mOsm/kg (285-295) L 12/24/21 15:10 Calcium 8.9 mg/dL (8.5-10.5) 12/24/21 15:10 Total Bilirubin 0.3 mg/dL (0.15-1.2) 12/24/21 15:10 AST 20 U/L (0-32) 12/24/21 15:10 ALT 17 U/L (0-33) 12/24/21 15:10 Alkaline Phosphatase 136 IU/L (35-105) H 12/24/21 15:10 Creatine Kinase 62 U/L (26-192) 12/24/21 15:10 Troponin T Baseline 9 ng/L (0-10) 12/24/21 15:10 Troponin T 120 Minute 7.31 ng/L (0-10) 12/24/21 17:12 Delta Troponin T -1.69 ABS# (0-10) L 12/24/21 17:12 Total Protein 6.0 g/dL (6.6-8.7) L 12/24/21 15:10 Albumin 4.0 g/dL (3.5-5.2) 12/24/21 15:10 Globulin 2.0 g/dL (1.3-4.6) 12/24/21 15:10 TSH 3.60 uIU/mL (0.27-4.20) 12/24/21 15:10 Urine Color Yellow (Yellow) 12/24/21 16:20 Urine Appearance Clear (CLEAR) 12/24/21 16:20 Urine pH 7 (5-7) 12/24/21 16:20 Ur Specific [place] 1.005 (1.005-1.030) 12/24/21 16:20 Urine Protein Neg (Negative) 12/24/21 16:20 Urine Glucose (UA) Norm (Normal) 12/24/21 16:20 Urine Ketones Negative (Negative) 12/24/21 16:20 Urine Blood Neg (Negative) 12/24/21 16:20 Urine Nitrate Negative (Negative) 12/24/21 16:20 Urine Bilirubin Neg (Negative) 12/24/21 16:20 Urine Urobilinogen Norm mg/dL (Negative) 12/24/21 16:20 Ur Leukocyte Esterase Negative (Negative) 12/24/21 16:20 Group A Strep Rapid Negative (Negative) 12/24/21 16:20 Discharge Plan Discharge Patient Disposition: Home Clinical Impression: Generalized seizure Condition: Stable Prescriptions: New diazepam 10 mg/spray (0.1 mL) spray,non-aerosol 10 mg intranasal Q5MIN PRN (Reason: seizures) Qty: 2 0RF Rx Instructions: seizure longer than 5 minutes or multiple without return to baseline. No Action aspirin 81 mg tablet,delayed release (DR/EC) 81 mg PO QAM docusate sodium [Colace] 100 mg capsule 100 mg PO BID calcium carbonate-vitamin D3 [Calcium 600 with Vitamin D3] 600 mg(1,500mg) -500 unit capsule 1 cap PO DAILY@20 atorvastatin 80 mg tablet 80 mg PO DAILY@20 levetiracetam 1,000 mg tablet 1,000 mg PO BID Qty: 60 2RF Rx Instructions: Take 1 tablet twice daily nitroglycerin 0.4 mg tablet, sublingual 0.4 mg SUBLINGUAL Q5M PRN (Reason: chest pain) Qty: 30 2RF Rx Instructions: until response; do not exceed 3 doses per episode clopidogrel 75 mg tablet 75 mg PO DAILY@20 Qty: 90 1RF albuterol sulfate 2.5 mg /3 mL (0.083 %) solution for nebulization 2.5 mg inhalation Q4H PRN (Reason: Shortness Of Breath) albuterol sulfate 90 mcg/actuation HFA aerosol inhaler 2 puff INHALATION Q4H PRN (Reason: Shortness Of Breath) fluticasone furoate-vilanterol [Breo Ellipta] 100-25 mcg/dose blister with device 1 inh INHALATION DAILY@09 isosorbide mononitrate 60 mg tablet extended release 24 hr 60 mg PO QAM Spiriva with HandiHaler 18 mcg Capsule, W/Inhalation Device 1 cap INHALATION DAILY PRN (Reason: Shortness Of Breath) ropinirole 0.5 mg tablet 0.5 mg PO BEDTIME metoprolol tartrate 25 mg tablet 12.5 mg PO BID pantoprazole 40 mg tablet,delayed release (DR/EC) 40 mg PO QAM citalopram 20 mg tablet 20 mg PO DAILY Discharge Orders: Discharge ED (Routine); Ordered 12/24/21 Ordered By: Korby Courtney Referrals: Keara Duncan MD [Physician] - 1-3 days Justin Chapman DO [Primary Care Provider] - Discharge Diet: Usual diet Discharge Activity: Limit activity as instructed Patient Instructions: Recurrent Seizures in Adults (ED), Opioid Safety Activity Restrictions/Additional Instructions: Thank you for visiting the emergency department. You were seen and evaluated for seizure. The exact cause of your seizure is unclear. As discussed with your primary care doctor you do need further follow-up. Please go to Dr. Duncan's office on Monday. Please continue all seizure precautions and all of your medications. I will also prescribe nasal diazepam for seizures lasting longer than 5 minutes or multiple seizures without return to baseline in between. If you need to use this medication please also call 911. Please return to the emergency department for recurrent seizures, any new neurologic symptoms, or anything else that you are concerned about a feel needs emergency department evaluation. Coding Level of Care Code ED Multimedia Programmer for Phillip Flores
--- NOTE | 2021-12-24 15:10 | XR_ITS ---
WS: [id number] Exam: XR chest 1V portable [id number] Date/Time of Exam: 12/24/2021 3:27 PM Reason For Exam: cough, cp Comparison 03/30/2021. The lungs are clear and fully expanded. Normal cardiomediastinal structures for technique. Bony struc tures are intact. No pleural effusions. XR/XR chest 1V portable [id number] IMPRESSION: 1. No acute cardiopulmonary finding. No change.
--- NOTE | 2021-12-24 15:10 | ECG_ITS ---
[facility] Test Date: 2021-12-24 Pat Name: Karina Leija Department: Room: Gender: Female Edge Kitter: : 1950 Requested By: Luke Easton Order Number: [id number] Corona MD: Zee Zavaleta M.D. Measurements Intervals Elliott Rate: 58 P: 33 GA: 161 QRS: 18 QRSD: 89 T: 30 QT: 422 QTc: 417 Interpretive Statements SINUS BRADYCARDIA Compared to ECG 03/30/2021 16:47:25 Sinus rhythm no longer present Electronically Signed On 12-24-2021 17:14:34 CDT by Zee Zavaleta M.D. [id number]
--- NOTE | 2021-12-24 15:12 | PC.NURSE ---
RAPID RESPONSE NOTE: Rapid response to MRI initiated at 14:42. Upon arrival to MRI patient found to be on MRI [facility]. Eyes open, awake and alert. Answers orientation questions appropriately with the exception of place. Patient states MRI but could not answer which town or facility. Oriented to self, situation, and president. Patient states she has had seizures before but not as severe. Patient states she takes keppra but no dose or frequency verbalized. No facial asymmetry noted. Bilateral communications tech equal. Patient complains of dizziness. Moved to [facility] via staff assist. Transported to ED for follow up. Patient placed in ED room 11 in timely fashion.
[2021-12-24 15:37] LABS: Basophils # 0.1 10^3/uL (0.0-0.1); Basophils % 0.9 %; Eosinophils # 0.1 10^3/uL (0.0-0.8); Eosinophils % 2.5 %; Hematocrit 36.4 % (37.0-47.0); Hemoglobin 11.9 g/dL (11.5-15.3); Lymphocytes # 1.2 10^3/uL (0.8-4.8); Mean Corpuscular HGB Conc 32.7 g/dL (30.0-36.0); Mean Corpuscular Hemoglobin 31.2 pg (28.0-34.0); Mean Corpuscular Volume 95.3 fl (81-99); Mean Platelet Volume 9.9 fL (7.4-10.4); Monocytes # 0.3 10^3/uL (0.2-0.9); Monocytes % 5.6 %; Neutrophils # 3.95 10^3/uL (1.8-7.7); Neutrophils % 69.6 %; Nucleated Red Blood Cells % 0 %; Platelet Count 257 10^3/cmm (130-400); Red Blood Count 3.82 10^6/uL (4.1-5.3); Red Cell Distribution Width 13.5 % (12.1-15.1); White Blood Count 5.7 10^3/uL (4.0-10.0)
[2021-12-24 15:56] LABS: Troponin(5th) Baseline 9 ng/L (0-10)
[2021-12-24 16:01] LABS: Alanine Aminotransferase 17 U/L (0-33); Alkaline Phosphatase 136 IU/L (35-105); Anion Gap 15.1 (5-19); Aspartate Amino Transferase 20 U/L (0-32); Blood Urea Nitrogen 14 mg/dL (8-23); Calcium 8.9 mg/dL (8.5-10.5); Carbon Dioxide 26 mmol/L (22-29); Chloride 99 mmol/L (98-107); Creatine Phosphokinase 62 U/L (26-192); Glucose 84 mg/dL (65-115); Osmolality Calculated 282 mOsm/kg (285-295); Potassium 4.1 mmol/L (3.5-5.1); Sodium 136 mmol/L (136-145); Total Bilirubin 0.3 mg/dL (0.15-1.2)
[2021-12-24 16:44] LABS: Add Urine Microscopic? NO; Charge for UA Resulting for Rev
[2021-12-24 16:50] LABS: Bilirubin Urine Neg (Negative); Blood Urine Neg (Negative); Glucose Urine UA Norm (Normal); Ketones Urine Negative (Negative); Leukocyte Esterase Urine Negative (Negative); Nitrate Urine Negative (Negative); Protein Urine Neg (Negative); Specific Gravity, Urine 1.005 (1.005-1.030); Urine Appearance Clear (CLEAR); Urine Color Yellow (Yellow); Urobilinogen Urine Norm (Negative); pH Urine 7 (5-7)
--- NOTE | 2021-12-24 17:03 | CTR_ITS ---
PROCEDURE INFORMATION: Exam: CTA Head With Contrast, Arteriography Exam date and time: 12/24/2021 6:34 PM Age: 71 years old Clinical indication: Patient HX: Seizure episode during mri; Additional info: Seizure like episode, nystagmus, worsening weakness r>l TECHNIQUE: Imaging protocol: Computed tomographic angiography of the head with contrast. Exam focused on the arteries. Sagittal and coronal reformatted images were created and reviewed. 3D rendering (Not supervised by radiologist): MIP and/or 3D reconstructed images were created by the technologist. Radiation optimization: All CT scans at this facility use at least one of these dose optimization techniques: automated exposure control; mA and/or kV adjustment per patient size (includes targeted exams where dose is matched to clinical indication); or iterative reconstruction. Contrast material: OMNI 350; Contrast volume: 95 ml; Contrast route: INTRAVENOUS (IV); COMPARISON: CT angio headneck* [id number] 08/15/2019 9:03 AM RADIATION DOSE METRICS: Total DLP (mGy-cm): 407.64 FINDINGS: ANTERIOR CIRCULATION: Right internal carotid artery: Stable mild calcified plaque at the cavernous segment. No occlusion, thrombosis, stenosis, extravasation, dissection, or aneurysm. Right middle cerebral artery: Unremarkable. No occlusion, thrombosis, stenosis, extravasation, dissection, or aneurysm. Right anterior cerebral artery: Unremarkable. No occlusion, thrombosis, stenosis, extravasation, dissection, or aneurysm. Anterior communicating artery: The anterior communicating artery is unremarkable. Left internal carotid artery: Stable mild calcified at cavernous. Unremarkable. No occlusion, thrombosis, stenosis, extravasation, dissection, or aneurysm. Left middle cerebral artery: Unremarkable. No occlusion, thrombosis, stenosis, extravasation, dissection, or aneurysm. Left anterior cerebral artery: Unremarkable. No occlusion, thrombosis, stenosis, extravasation, dissection, or aneurysm. POSTERIOR CIRCULATION: Right vertebral artery: Unremarkable. No occlusion, thrombosis, stenosis, extravasation, dissection, or aneurysm. Left vertebral artery: Unremarkable. No occlusion, thrombosis, stenosis, extravasation, dissection, or aneurysm. Basilar artery: Unremarkable. No occlusion, thrombosis, stenosis, extravasation, dissection, or aneurysm. Right posterior cerebral artery: Unremarkable. Arises from the supraclinoid segment of the right internal carotid artery. No occlusion, thrombosis, stenosis, dissection, or aneurysm. Left posterior cerebral artery: Unremarkable. Arises from the basilar artery. No occlusion, thrombosis, stenosis, extravasation, dissection, or aneurysm. Right posterior communicating artery: The right posterior communicating artery is not visualized. The right posterior communicating artery may be congenitally absent, or may be too small for the resolution capabilities of this study. Left posterior communicating artery: The left posterior communicating artery is not visualized. The left posterior communicating artery may be congenitally absent, or may be too small for the resolution capabilities of this study. Veins: The dural sinuses and deep cerebral veins are patent. Brain: No definite mass, mass effect, or midline shift. Cerebral ventricles: No ventriculomegaly. Orbital cavities: Globes and lenses, extraocular muscles, and optic nerves are intact bilaterally. No acute intraorbital abnormality. Mastoid air cells: Mastoid air cells are clear bilaterally. Paranasal sinuses: Paranasal sinuses are clear. Nasal cavity: Mild right nasal septal deviation. Bones/joints: Unremarkable. No acute fracture. Soft tissues: No acute abnormality of the extracranial soft tissues. PROCEDURE INFORMATION: Exam: CTA Neck With Contrast Exam date and time: 12/24/2021 6:34 PM Age: 71 years old Clinical indication: Patient HX: Seizure episode during mri; Additional info: Seizure like episode, nystagmus, worsening weakness r>l TECHNIQUE: Imaging protocol: Computed tomographic angiography of the neck with contrast. Sagittal and coronal reformatted images were created and reviewed. 3D rendering (Not supervised by radiologist): MIP and/or 3D reconstructed images were created by the technologist. Radiation optimization: All CT scans at this facility use at least one of these dose optimization techniques: automated exposure control; mA and/or kV adjustment per patient size (includes targeted exams where dose is matched to clinical indication); or iterative reconstruction. Contrast material: OMNI 350; Contrast volume: 95 ml; Contrast route: INTRAVENOUS (IV); COMPARISON: CT angio headneck* [id number] 08/15/2019 9:03 AM RADIATION DOSE METRICS: Total DLP (mGy-cm): 407.64 FINDINGS: Right common carotid artery: Unremarkable. No occlusion, thrombosis, stenosis, extravasation, dissection, or aneurysm. Right internal carotid artery: Stable mild calcified and noncalcified plaque at the origin. No occlusion, thrombosis, stenosis, extravasation, dissection, or aneurysm. Right external carotid artery: Unremarkable. No occlusion, thrombosis, stenosis, extravasation, dissection, or aneurysm. Left common carotid artery: Stable moderate calcified plaque at the carotid bulb. No occlusion, thrombosis, stenosis, extravasation, dissection, or aneurysm. Left internal carotid artery: Stable moderate calcified and noncalcified plaque at the origin with 40% stenosis using NASCET criteria. No occlusion, thrombosis, extravasation, dissection, or aneurysm. Left external carotid artery: Unremarkable. No occlusion, thrombosis, stenosis, extravasation, dissection, or aneurysm. Right vertebral artery: Unremarkable. No occlusion, thrombosis, stenosis, extravasation, dissection, or aneurysm. Left vertebral artery: Unremarkable. No occlusion, thrombosis, stenosis, extravasation, dissection, or aneurysm. Brachiocephalic artery: Unremarkable. No occlusion, thrombosis, stenosis, extravasation, dissection, or aneurysm. Subclavian arteries: Unremarkable. No occlusion, thrombosis, stenosis, extravasation, dissection, or aneurysm. Aorta: Aortic: Stable mild calcified and noncalcified plaque. No occlusion, thrombosis, stenosis, extravasation, dissection, or aneurysm. Lymph nodes: No lymphadenopathy. Soft tissues: No soft tissue swelling. No radiopaque foreign body. Bones/joints: Bones are diffusely osteopenic. Multilevel degenerative changes of varying severity in the visualized spine. Lungs: Dependent atelectasis in the visualized lungs bilaterally. Pleural spaces: Bilateral apical pleural thickening. CT/CT angio headneck* [id number] IMPRESSION: 1. Stable mild atherosclerotic disease at the cavernous segments of the right and left internal carotid arteries. No occlusion, thrombosis, stenosis, extravasation, dissection, or aneurysm. 2. The right posterior cerebral artery arises from the supraclinoid segment of the right internal carotid artery. 3. The posterior communicating arteries are not visualized. The posterior communicating arteries may be congenitally absent, or may be too small for the resolution capabilities of this study. IMPRESSION: 1. Stable njit-ze-ijbxtsoj atherosclerotic disease. Stable 40% stenosis at the origin of the left internal carotid artery. No occlusion, thrombosis, extravasation, dissection, or aneurysm. 2. Incidental/nonacute findings are listed in the report. REFERENCES: NASCET CRITERIA. The degree of internal carotid artery stenosis is based on NASCET criteria. Normal is no stenosis. Mild is less than 50% stenosis. Moderate is 50-69% stenosis. Severe is 70% to 99% stenosis. Total occlusion is no detectable patent lumen.
--- NOTE | 2021-12-24 17:10 | ECG_ITS ---
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 Measurements Intervals [place] Rate: 56 P: 25 NC: 163 QRS: 13 QRSD: 98 T: 15 QT: 450 QTc: 438 Interpretive Statements SINUS BRADYCARDIA POSSIBLE RIGHT VENTRICULAR CONDUCTION DELAY [RSR (QR) IN V1/V2] Compared to ECG 12/24/2021 15:22:59 No significant changes Electronically Signed On 12-24-2021 17:36:55 CDT by Zee Zavaleta M.D. [email or web address] [email or web address] woman[facility] hospitalNexgate[facility].[employer]/store/OM/[id number]
[2021-12-24 17:15] LABS: Rapid Strep A Test Negative (Negative)
--- NOTE | 2021-12-24 17:17 | CTR_ITS ---
PROCEDURE INFORMATION: Exam: CT Chest Without Contrast; Diagnostic Exam date and time: 12/24/2021 6:30 PM Age: 71 years old Clinical indication: Shortness of breath; Prior surgery; Surgery date: 6+ months; Surgery type: R mast; Patient HX: Sob/hypoxia seizure during mri TECHNIQUE: Imaging protocol: Diagnostic computed tomography of the chest without contrast. Radiation optimization: All CT scans at this facility use at least one of these dose optimization techniques: automated exposure control; mA and/or kV adjustment per patient size (includes targeted exams where dose is matched to clinical indication); or iterative reconstruction. COMPARISON: CT angio chest PE protcl [id number] 01/19/2020 2:25 PM RADIATION DOSE METRICS: Total DLP (mGy-cm): 292.06 FINDINGS: Lungs: Mild reticular changes of pulmonary interstitium. Negative for pulmonary consolidation. Negative for endobronchial obstruction. Smoothly marginated right middle lobe calcified granulomas. No peripheral honeycombing. Negative for bronchiectasis. Pleural spaces: Unremarkable. No pneumothorax. No pleural effusion. Heart: Unremarkable. No cardiomegaly. No pericardial effusion. Lymph nodes: Unremarkable. No enlarged lymph nodes. Vasculature: Unremarkable. No aortic aneurysm. Bones/joints: Unremarkable. No acute fracture. Soft tissues: Right-sided mastectomy. Unremarkable chest wall soft tissues. CT/CT chest [facility] [id number] IMPRESSION: Negative for acute pulmonary disease.
[2021-12-24 17:47] LABS: Troponin 5 2HR 7.31 ng/L (0-10)
[2021-12-24 18:13] LABS: Troponin 5 2HR Delta -1.69 ABS# (0-10)
[2021-12-24] MEDS: iohexol 350 mg/mL 100 mL Btl IV (18:48)
== END 2021-12-24 19:40 | disposition home or self-care (01) ==
PROVIDERS: Emergency Medicine; Emergency Provider Emergency Medicine; PCP Electrodiagnostic Medicine
DX: G40.409 Other generalized epilepsy and epileptic syndromes, not intractable, without status epilepticus (principal); Z79.82 Long term (current) use of aspirin; Z79.02 Long term (current) use of antithrombotics/antiplatelets; I25.10 Atherosclerotic heart disease of native coronary artery without angina pectoris; E78.5 Hyperlipidemia, unspecified; Z87.891 Personal history of nicotine dependence; Z86.73 Personal history of transient ischemic attack (TIA), and cerebral infarction without residual deficits
CPT/HCPCS: 70496; 70498; 71045; 71250; 80053; 81003; 82550; 84443; 84484; 85025; 87081; 87880; 93005; 99285; Q9967

== ENCOUNTER → 2021-12-27 07:39 | Outpatient (BNVA) | payer MEDICARE, SELFPAY | PROVIDERS: PCP Electrodiagnostic Medicine; Visit Provider Specialist | DX: R56.9 Unspecified convulsions (principal); R53.1 Weakness; Z96.643 Presence of artificial hip joint, bilateral; I25.110 Atherosclerotic heart disease of native coronary artery with unstable angina pectoris; I35.0 Nonrheumatic aortic (valve) stenosis; R55 Syncope and collapse; Z87.891 Personal history of nicotine dependence | CPT/HCPCS: 99205; 99214 ==

== ENCOUNTER 2021-12-31 13:48 | Outpatient (CLI) | payer MEDICARE, SELFPAY ==
--- NOTE | 2021-12-31 13:57 | MM_ITS ---
WS: [id number] DIAGNOSTIC LEFT DIGITAL BREAST TOMOSYNTHESIS MAMMOGRAPHY WITH CAD. HISTORY: HX OF BREAST Ca; rt MAST Palpable area LEFT breast at 12:00. Prior RIGHT mastectomy. COMPARISON: 12/08/2021, 10/27/2020 and 10/24/2019 Technique: CC, MLO and ML views. Spot compression LEFT CC and MLO Breast composition: There are scattered areas of fibroglandular density. Triangular marker is placed at 12:00 on the anterior breast. No underlying mass identified. There is slight nipple retraction which is similar to prior studies. MM/[place] [id number] IMPRESSION: BI-RADS: 0-Incomplete: Need additional imaging evaluation FOLLOW UP: Need Additional Imaging Recommend LEFT breast ultrasound evaluation of the palpable area at 12:00.
== END 2021-12-31 13:49 | disposition home or self-care (01) ==
LOC: RAD 13:52
PROVIDERS: PCP Electrodiagnostic Medicine; Visit Provider Internal Medicine Hematology & Oncology
DX: Z85.3 Personal history of malignant neoplasm of breast (principal); Z90.11 Acquired absence of right breast and nipple
CPT/HCPCS: 77061

== ENCOUNTER → 2022-01-06 12:52 | Outpatient (BNVA) | payer MEDICARE, SELFPAY | PROVIDERS: Absent Provider Specialist; PCP Electrodiagnostic Medicine; Visit Provider Specialist | DX: R53.1 Weakness (principal); R56.9 Unspecified convulsions | CPT/HCPCS: 95816 ==

== ENCOUNTER 2022-01-07 09:21 | Outpatient (CLI) | payer MEDICARE, SELFPAY ==
--- NOTE | 2022-01-07 09:32 | US_ITS ---
WS: [id number] ULTRASOUND LEFT BREAST HISTORY: Palpable area LEFT breast. COMPARISON: Diagnostic mammogram 12/31/2021 TECHNIQUE: 2-D and Doppler. Hypoechoic nodule without increased vascularity measures 4 x 4 mm at 12:00, 1 cm from the nipple. The re are nonspecific in appearance. US/US breast LT limited* [id number] IMPRESSION: BI-RADS: 3-Probably Benign FOLLOW-UP: 6 Month Follow-up Recommend follow-up ultrasound LEFT breast palpable area at 12:00 in 6 months.
== END 2022-01-07 09:22 | disposition home or self-care (01) ==
PROVIDERS: PCP Electrodiagnostic Medicine; Visit Provider Internal Medicine Hematology & Oncology
DX: C50.811 Malignant neoplasm of overlapping sites of right female breast (principal)
CPT/HCPCS: 76642

== ENCOUNTER 2022-01-24 12:56 | Oncology outpatient (recurring) (ONCR) | payer MEDICARE, SELFPAY ==
[2022-01-24 13:27] LABS: Alanine Aminotransferase 15 U/L (0-33); Alkaline Phosphatase 136 U/L (35-105); Anion Gap 14.1 (5-19); Aspartate Amino Transferase 18 U/L (0-32); Blood Urea Nitrogen 9 mg/dL (8-23); Calcium 8.6 mg/dL (8.5-10.5); Carbon Dioxide 26 mmol/L (22-29); Chloride 103 mmol/L (98-107); Globulin 2.8 g/dL (1.3-4.6); Glucose 91 mg/dL (65-115); Osmolality Calculated 286 mOsm/kg (285-295); Potassium 4.1 mmol/L (3.5-5.1); Sodium 139 mmol/L (136-145); Total Bilirubin 0.4 mg/dL (0.15-1.2); Total Protein 6.8 g/dL (6.6-8.7)
== END 2022-01-26 23:59 | disposition home or self-care (01) ==
PROVIDERS: Internal Medicine Hematology & Oncology; PCP Electrodiagnostic Medicine; Visit Provider Internal Medicine Medical Oncology
DX: C50.811 Malignant neoplasm of overlapping sites of right female breast (principal); Z17.1 Estrogen receptor negative status [ER-]; M85.80 Other specified disorders of bone density and structure, unspecified site; M19.011 Primary osteoarthritis, right shoulder; Z79.818 Long term (current) use of other agents affecting estrogen receptors and estrogen levels; Z79.899 Other long term (current) drug therapy; Z87.891 Personal history of nicotine dependence
CPT/HCPCS: 80053; 99214

== ENCOUNTER → 2022-02-08 13:27 | Outpatient (BNVA) | payer MEDICARE, SELFPAY | PROVIDERS: PCP Electrodiagnostic Medicine; Visit Provider Nurse Practitioner Family | DX: R53.1 Weakness (principal) | CPT/HCPCS: 99213 ==

== ENCOUNTER → 2022-02-28 08:32 | Outpatient (BNVA) | payer MEDICARE, SELFPAY | PROVIDERS: PCP Electrodiagnostic Medicine; Referring Provider Family Medicine; Visit Provider Specialist | DX: F44.6 Conversion disorder with sensory symptom or deficit (principal); R53.1 Weakness | CPT/HCPCS: 99213; 99214 ==

== ENCOUNTER 2022-03-13 14:23 | Emergency (ER) | payer MEDICARE, SELFPAY ==
[2022-03-13 14:27] VITALS: BP 144/74; PULSE 78; RESP 18; TEMP 36.8; O2SAT 93; BMI 29.2
--- NOTE | 2022-03-13 14:35 | CTR_ITS ---
PROCEDURE INFORMATION: Exam: CT Head Without Contrast Exam date and time: 03/13/2022 2:43 PM Age: 72 years old Clinical indication: Stroke-like symptoms; RT upper extremity and RT lower extremity weakness; Additional info: Symptoms of acute stroke TECHNIQUE: Imaging protocol: Computed tomography of the head without contrast. Radiation optimization: All CT scans at this facility use at least one of these dose optimization techniques: automated exposure control; mA and/or kV adjustment per patient size (includes targeted exams where dose is matched to clinical indication); or iterative reconstruction. Other technique: STROKE PROTOCOL was implemented. COMPARISON: MR head wo con* [id number] 12/24/2021 2:01 PM RADIATION DOSE METRICS: Total DLP (mGy-cm): 1077.3 FINDINGS: Brain: There is mild periventricular white matter lucency consistent with mild chronic microvascular disease. No evidence of acute infarct. No hemorrhage or extra-axial collection. No mass. Cerebral ventricles: There is no hydrocephalus. Paranasal sinuses: Visualized sinuses are unremarkable. No fluid levels. Mastoid air cells: Visualized mastoid air cells are well aerated. Bones/joints: Unremarkable. No acute fracture. Soft tissues: Unremarkable. CT/CT head wo con* [id number] IMPRESSION: 1. Mild chronic microvascular disease. 2. No acute intracranial lesion or injury and no change from prior scan. ASSESSMENT: ASPECTS ([place] Stroke Program Early CT Score) is 10.
--- NOTE | 2022-03-13 14:35 | ECG_ITS ---
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 Measurements Intervals [place] Rate: 62 P: 28 HI: 149 QRS: 24 QRSD: 91 T: 48 QT: 398 QTc: 406 Interpretive Statements SINUS RHYTHM Compared to ECG 12/24/2021 16:55:38 Sinus bradycardia no longer present Electronically Signed On 03-13-2022 21:57:18 CDT by Dutch Enciso M.D. [email or web address] medical centerNirvanixshel[facility].[email or web address]/store/OM/[id number]
--- NOTE | 2022-03-13 15:31 | CTR_ITS ---
PROCEDURE INFORMATION: Exam: CTA Head With Contrast, Arteriography Exam date and time: 03/13/2022 4:38 PM Age: 72 years old Clinical indication: Weakness; Additional info: Right sided weakness, numbness TECHNIQUE: Imaging protocol: Computed tomographic angiography of the head with contrast. Exam focused on the arteries. 3D rendering (Not supervised by radiologist): MIP and/or 3D reconstructed images were created by the technologist. Radiation optimization: All CT scans at this facility use at least one of these dose optimization techniques: automated exposure control; mA and/or kV adjustment per patient size (includes targeted exams where dose is matched to clinical indication); or iterative reconstruction. Contrast material: OMNIPAQUE 350; Contrast volume: 100 ml; Contrast route: INTRA-ARTERIAL (ARTERIAL); COMPARISON: CT angio headneck* [id number] 12/24/2021 6:34 PM , head CT 03/13/2020 RADIATION DOSE METRICS: Total DLP (mGy-cm): 487.64 FINDINGS: ANTERIOR CIRCULATION: Right internal carotid artery: Intracranial segment is patent with no significant stenosis. No aneurysm. Right middle cerebral artery: No occlusion or significant stenosis. No aneurysm. Right anterior cerebral artery: No occlusion or significant stenosis. No aneurysm. Left internal carotid artery: Intracranial segment is patent with no significant stenosis. No aneurysm. Left middle cerebral artery: No occlusion or significant stenosis. No aneurysm. Left anterior cerebral artery: No occlusion or significant stenosis. No aneurysm. POSTERIOR CIRCULATION: Right vertebral artery: No occlusion or significant stenosis. No aneurysm. Left vertebral artery: No occlusion or significant stenosis. No aneurysm. Basilar artery: No occlusion or significant stenosis. No aneurysm. Right posterior cerebral artery: No occlusion or significant stenosis. No aneurysm. Left posterior cerebral artery: No occlusion or significant stenosis. No aneurysm. Brain: See head CT PROCEDURE INFORMATION: Exam: CTA Neck With Contrast Exam date and time: 03/13/2022 4:38 PM Age: 72 years old Clinical indication: Weakness; Additional info: Right sided weakness, numbness TECHNIQUE: Imaging protocol: Computed tomographic angiography of the neck with contrast. 3D rendering (Not supervised by radiologist): MIP and/or 3D reconstructed images were created by the technologist. Radiation optimization: All CT scans at this facility use at least one of these dose optimization techniques: automated exposure control; mA and/or kV adjustment per patient size (includes targeted exams where dose is matched to clinical indication); or iterative reconstruction. Contrast material: OMNIPAQUE 350; Contrast volume: 100 ml; Contrast route: INTRA-ARTERIAL (ARTERIAL); COMPARISON: CT angio headneck* [id number] 12/24/2021 6:34 PM RADIATION DOSE METRICS: Total DLP (mGy-cm): 487.64 FINDINGS: Right common carotid artery: No stenosis. No dissection or occlusion. Right internal carotid artery: No stenosis of the extracranial segment. No dissection or occlusion. Right external carotid artery: No occlusion or stenosis of the origin. Left common carotid artery: No stenosis. No dissection or occlusion. Left internal carotid artery: There is calcified plaque in the proximal left internal carotid artery resulting in mild, less than 40%, stenosis. Left external carotid artery: No occlusion or stenosis of the origin. Right vertebral artery: No stenosis. No dissection or occlusion. Left vertebral artery: No stenosis. No dissection or occlusion. Soft tissues: Normal. No significant soft tissue swelling. Bones/joints: There is spondylosis and disc space narrowing at C4-C5 and C5-C6. Lungs: Biapical fibrosis more extensive on the right. Mosaic pattern of ventilation consistent with air trapping . CT/CT angio headne* [id number] IMPRESSION: No intracranial stenosis or occlusion IMPRESSION: 1. Less than 40% stenosis of the proximal left internal carotid artery. No right carotid stenosis. 2. No vertebral artery stenosis REFERENCES: NASCET CRITERIA. The degree of stenosis in the cervical segment of the internal carotid artery is based on NASCET criteria. Normal is no stenosis. Mild is less than 50% stenosis. Moderate is 50-69% stenosis. Severe is 70% to 99% stenosis. Total occlusion is no detectable patent lumen.
--- NOTE | 2022-03-13 15:31 | W.ED.AMS ---
HPI - Altered Mental Status General: Chief Complaint: Altered Mental Status Stated Complaint: Possible stroke Time Seen by Provider: 03/13/22 15:13 History of Present Illness: 72-year-old female presenting today with transient right-sided weakness and tingling. Patient notes this morning she woke up. When started to have sudden onset of right upper and right lower extremity numbness tingling and weakness. Noted weakness was so profound she could not walk. Was able to make it to a chair. And sat there for several hours. Before symptoms resolved. Has had mini strokes in the past. Has never had such profound symptoms that lasted quite so long. Upon presenting to the ED she has residual numbness and tingling. But all her weakness is resolved. [facility] ED PFSH: Medical History Angina pectoris Status post PCI to diagonal branch. No more angina Aortic stenosis, mild Stable CAD (coronary artery disease), [place] coronary artery Diagonal branch for significant ostial and proximal diagonal lesion. It was treated with 2 overlapping drug-eluting stents HLD (hyperlipidemia) Malignant neoplasm of overlapping sites of right female breast Obesity Primary osteoarthritis of both hips Varicose vein of leg Surgical History History of total hip arthroplasty Hx of appendectomy Hx of hysterectomy Hx of right mastectomy Family History Grandmother CAD (coronary artery disease) Hypertension Father CAD (coronary artery disease) Cancer Diabetes Hypertension Lung disease Mother Cancer Dementia Diabetes Hypertension Daughter Chronic kidney disease (CKD) eldest Hypertension Daughter Chronic kidney disease (CKD) third child Sister Hyperlipidemia all sisters Hypertension Lung disease Unknown Suicide maternal aunt-GSW- mid 40s Denies family history of Clotting disorder Psychiatric illness Anesthesia complication Bleeding disorder Family history of premature coronary artery disease Stroke Social History Smoking and tobacco status: never smoked Quit status (tobacco): has quit using tobacco Year quit tobacco: 2017 Second hand smoke exposure: Yes Alcohol intake: never History of recent travel: No Physical Exam Const: COMMON NORMALS: no acute distress, patient oriented x3 and alert ORIENTATION/CONSCIOUSNESS: Yes oriented to person and Yes oriented to time HENMT: COMMON NORMALS: normocephalic HEAD & SCALP: normocephalic Eye: GENERAL EYE: appearance normal, both eyes and all related structures Neck/C-Spine: COMMON NORMALS: no JVD Lymph: LYMPHATIC: no lymphadenopathy noted Chest: CHEST: Yes Symmetrical chest wall rise Resp: COMMON NORMALS: normal respiratory effort, No retractions, No use of accessory muscles and clear to auscultation bilaterally AUSCULTATION: clear to auscultation bilaterally Cardio: COMMON NORMALS: no JVD, regular rate, regular rhythm, S1 normal heart sound present and S2 normal heart sound present RATE: regular rate RHYTHM: regular rhythm HEART SOUNDS: S1 normal heart sound present and S2 normal heart sound present GI: COMMON NORMALS: Normal to inspection, nondistended, normoactive bowel sounds present, Soft to palpation, non-tender, No hepatosplenomegaly present, no masses and no bruits PALPATION: Yes Soft to palpation and Yes No hepatosplenomegaly present : BLADDER/KIDNEY EXAM: No CVA tenderness Back/Pelvis: GENERAL BACK: No CVA tenderness and No tenderness Extremity: COMMON NORMALS: capillary refill normal, no clubbing, cyanosis or edema, no calf tenderness and no pedal edema Neuro: COMMON NORMALS: patient oriented x3 SENSORIUM/ORIENTATION: Yes alert, Yes oriented to person and Yes oriented to time CRANIAL NERVES: Yes CN normal except as noted COORDINATION/BALANCE: [id number] test normal, uvus-dr-ebto test normal and tandem gait normal SPEECH: speech normal GAIT: Yes Normal gait present SENSORY EXAM: Yes other (Decreased sensation to the upper and lower extremity on the right side) MOTOR EXAM: 5/5 motor strength present throughout COORDINATION: hxbztj-[id number] test normal, tskd-nu-tbht test normal and tandem gait normal PUPIL EXAM: Normal pupillary reactivity/response: right, left and bilateral Psych: COMMON NORMALS: mental status grossly normal Course Vital Signs: Vital signs: Vital Signs Temperature 98.3 F 03/13/22 14:27 Pulse Rate 78 03/13/22 14:27 Respiratory Rate 18 03/13/22 14:27 Blood Pressure 144/74 03/13/22 14:27 Pulse Oximetry 93 03/13/22 14:27 Oxygen Delivery Me thod 03/13/22 14:27 MDM - Altered Mental Status Medical Decision Making 72-year-old female presenting today with right-sided numbness tingling and weakness. Last normal was 08 100 this morning. Symptoms have mostly resolved at this point. Would be classified as a class II stroke. CT head without acute abnormality. Labs are unremarkable. Will admit to the hospital for further evaluation of TIA. Lab Data : 03/13/22 15:30 03/13/22 15:[address] 03/13/22 14:35 IMPRESSION: 1. Mild chronic microvascular disease. 2. No acute intracranial lesion or injury and no change from prior scan. ASSESSMENT: ASPECTS ([place] Stroke Program Early CT Score) is 10. Laboratory Results WBC 5.9 10^3/uL (4.0-10.0) 03/13/22 15:30 RBC 3.81 10^6/uL (4.1-5.3) L 03/13/22 15:30 Hgb 11.9 g/dL (11.5-15.3) 03/13/22 15:30 Hct 36.4 % (37.0-47.0) L 03/13/22 15:30 MCV 95.5 fl (81-99) 03/13/22 15:30 MCH 31.2 pg (28.0-34.0) 03/13/22 15:30 MCHC 32.7 g/dL (30.0-36.0) 03/13/22 15:30 RDW 14.5 % (12.1-15.1) 03/13/22 15:30 Plt Count 270 10^3/cmm (130-400) 03/13/22 15:30 MPV 9.3 fL (7.4-10.4) 03/13/22 15:30 Neut % (Auto) 64.5 % 03/13/22 15:30 Lymph % (Auto) 23.5 % 03/13/22 15:30 Smith % (Auto) 7.7 % 03/13/22 15:30 Eos % (Auto) 3.1 % 03/13/22 15:30 Baso % (Auto) 0.9 % 03/13/22 15:30 Neut # (Auto) 3.80 10^3/uL (1.8-7.7) 03/13/22 15:30 Lymph # (Auto) 1.4 10^3/uL (0.8-4.8) 03/13/22 15:30 Smith # (Auto) 0.5 10^3/uL (0.2-0.9) 03/13/22 15:30 Eos # (Auto) 0.2 10^3/uL (0.0-0.8) 03/13/22 15:30 Baso # (Auto) 0.1 10^3/uL (0.0-0.1) 03/13/22 15:30 Nucleated RBC % (auto) 0 % 03/13/22 15:30 Nucleated RBCs # 0.0 /100WBC 03/13/22 15:30 PT 13.30 SECONDS (12.1-14.9) 03/13/22 15:30 INR 0.98 (0.8-1.2) 03/13/22 15:30 APTT 28.2 SECONDS (23.9-36.7) 03/13/22 15:30 Sodium 136 mmol/L (136-145) 03/13/22 15:30 Potassium 4.7 mmol/L (3.5-5.1) 03/13/22 15:30 Chloride 99 mmol/L (98-107) 03/13/22 15:30 Carbon Dioxide 26 mmol/L (22-29) 03/13/22 15:30 Anion Gap 15.7 (5-19) 03/13/22 15:30 BUN 19 mg/dL (8-23) 03/13/22 15:30 Creatinine 1.0 mg/dL (0.5-0.9) H 03/13/22 15:30 GFR Calculation Not Reportable 03/13/22 15:30 Glucose 90 mg/dL (65-115) 03/13/22 15:30 POC Glucose 97 mg/dL (70-110) 03/13/22 16:01 Calculated Osmolality 284 mOsm/kg (285-295) L 03/13/22 15:30 Calcium 9.2 mg/dL (8.5-10.5) 03/13/22 15:30 Total Bilirubin 0.4 mg/dL (0.15-1.2) 03/13/22 15:30 AST 26 U/L (0-32) 03/13/22 15:30 ALT 28 U/L (0-33) 03/13/22 15:30 Alkaline Phosphatase 113 U/L (35-105) H 03/13/22 15:30 Total Protein 7.0 g/dL (6.6-8.7) 03/13/22 15:30 Albumin 4.1 g/dL (3.5-5.2) 03/13/22 15:30 Globulin 2.9 g/dL (1.3-4.6) 03/13/22 15:30 Discharge Plan Discharge Patient Disposition: Admitted As Inpatient Clinical Impression: Brain TIA Condition: Stable Prescriptions: No Action aspirin 81 mg tablet,delayed release (DR/EC) 81 mg PO QAM docusate sodium [Colace] 100 mg capsule 100 mg PO BID calcium carbonate-vitamin D3 [Calcium 600 with Vitamin D3] 600 mg(1,500mg) -500 unit capsule 1 cap PO DAILY@20 atorvastatin 80 mg tablet 80 mg PO DAILY@20 doxycycline hyclate 100 mg tablet 100 mg PO DAILY benzonatate 100 mg capsule 100 mg PO TID levetiracetam 1,000 mg tablet 1,000 mg PO BID Qty: 60 2RF Rx Instructions: Take 1 tablet twice daily nitroglycerin 0.4 mg tablet, sublingual 0.4 mg SUBLINGUAL Q5M PRN (Reason: chest pain) Qty: 30 2RF Rx Instructions: until response; do not exceed 3 doses per episode clopidogrel 75 mg tablet 75 mg PO DAILY@20 Qty: 90 1RF isosorbide mononitrate 30 mg tablet extended release 24 hr 15 mg PO DIRECTED Qty: 90 3RF Rx Instructions: 15mg daily; May take extra 15mg is BP <140/90 albuterol sulfate 2.5 mg /3 mL (0.083 %) solution for nebulization 2.5 mg inhalation Q4H PRN (Reason: Shortness Of Breath) albuterol sulfate 90 mcg/actuation HFA aerosol inhaler 2 puff INHALATION Q4H PRN (Reason: Shortness Of Breath) fluticasone furoate-vilanterol [Breo Ellipta] 100-25 mcg/dose blister with device 1 inh INHALATION DAILY@09 Spiriva with HandiHaler 18 mcg Capsule, W/Inhalation Device 1 cap INHALATION DAILY PRN (Reason: Shortness Of Breath) ropinirole 0.5 mg tablet 0.5 mg PO BEDTIME metoprolol tartrate 25 mg tablet 12.5 mg PO BID pantoprazole 40 mg tablet,delayed release (DR/EC) 40 mg PO QAM citalopram 20 mg tablet 20 mg PO DAILY diazepam 10 mg/spray (0.1 mL) spray,non-aerosol 10 mg intranasal Q5MIN PRN (Reason: seizures) Qty: 2 0RF Rx Instructions: seizure longer than 5 minutes or multiple without return to baseline. Referrals: Justin Chapman DO [Primary Care Provider] - Coding Level of Care Code ED [employer] for [place] [facility]
[2022-03-13 15:35] LABS: Basophils # 0.1 10^3/uL (0.0-0.1); Basophils % 0.9 %; Eosinophils # 0.2 10^3/uL (0.0-0.8); Eosinophils % 3.1 %; Hematocrit 36.4 % (37.0-47.0); Hemoglobin 11.9 g/dL (11.5-15.3); Lymphocytes # 1.4 10^3/uL (0.8-4.8); Lymphocytes % 23.5 %; Mean Corpuscular HGB Conc 32.7 g/dL (30.0-36.0); Mean Corpuscular Hemoglobin 31.2 pg (28.0-34.0); Mean Corpuscular Volume 95.5 fl (81-99); Mean Platelet Volume 9.3 fL (7.4-10.4); Monocytes # 0.5 10^3/uL (0.2-0.9); Monocytes % 7.7 %; Neutrophils % 64.5 %; Nucleated Red Blood Cells % 0 %; Platelet Count 270 10^3/cmm (130-400); Red Blood Count 3.81 10^6/uL (4.1-5.3); Red Cell Distribution Width 14.5 % (12.1-15.1); White Blood Count 5.9 10^3/uL (4.0-10.0)
[2022-03-13 15:45] LABS: INR 0.98 (0.8-1.2)
[2022-03-13 15:46] LABS: Partial Thromboplastin Time 28.2 SECONDS (23.9-36.7)
[2022-03-13 16:04] LABS: Glucose Point of Care 97 mg/dL (70-110)
[2022-03-13 16:05] LABS: Alanine Aminotransferase 28 U/L (0-33); Albumin Level 4.1 g/dL (3.5-5.2); Alkaline Phosphatase 113 U/L (35-105); Anion Gap 15.7 (5-19); Aspartate Amino Transferase 26 U/L (0-32); Blood Urea Nitrogen 19 mg/dL (8-23); Calcium 9.2 mg/dL (8.5-10.5); Carbon Dioxide 26 mmol/L (22-29); Chloride 99 mmol/L (98-107); Creatinine Clr Calc Pharmacy 49.6052; Globulin 2.9 g/dL (1.3-4.6); Glucose 90 mg/dL (65-115); Osmolality Calculated 284 mOsm/kg (285-295); Potassium 4.7 mmol/L (3.5-5.1); Sodium 136 mmol/L (136-145); Total Bilirubin 0.4 mg/dL (0.15-1.2)
[2022-03-13] MEDS: iohexol 350 mg/mL 100 mL Btl IV (16:43)
--- NOTE | 2022-03-13 16:45 | PM.HP ---
Providers/Chief Complaint Primary Care Provider: Justin Chapman DO Chief Complaint: Possible stroke History of Present Illness Karina Leija is a 72 year old female Medications/Allergies Home Medications Medication Instructions Recorded Confirmed Last Taken Type aspirin 81 mg tablet,delayed 81 mg PO QAM 06/10/19 02/28/22 03/30/21 08:00 History release docusate sodium 100 mg capsule 100 mg PO BID 06/10/19 02/28/22 03/30/21 08:00 History (Colace) atorvastatin 80 mg tablet 80 mg PO DAILY@11/07/19 02/28/22 03/29/21 History calcium carbonate 600 mg-vitamin 1 cap PO DAILY@12/16/19 02/28/22 03/29/21 History D3 12.5 mcg (500 unit) capsule (Calcium 600 with Vitamin D3) albuterol sulfate 2.5 mg/3 mL 2.5 mg inhalation Q4H PRN 01/19/20 02/28/22 01/18/20 History (0.083 %) solution for nebulization Shortness Of Breath albuterol sulfate 90 mcg/actuation 2 puff inhalation Q4H PRN 01/19/20 02/28/22 06/22/20 History aerosol inhaler Shortness Of Breath fluticasone furoate 100 1 inh inhalation DAILY@01/19/20 02/28/22 03/30/21 History mcg-vilanterol 25 mcg/dose inhalation powder (Breo Ellipta) tiotropium bromide 18 mcg capsule 1 cap inhalation DAILY PRN 06/22/20 02/28/22 06/22/20 History with inhalation device (Spiriva Shortness Of Breath with HandiHaler) metoprolol tartrate 25 mg tablet 12.5 mg PO BID 03/30/21 02/28/22 03/30/21 08:00 History pantoprazole 40 mg tablet,delayed 40 mg PO QAM 03/30/21 02/28/22 03/30/21 08:00 History release ropinirole 0.5 mg tablet 0.5 mg PO BEDTIME 03/30/21 02/28/22 03/29/21 History nitroglycerin 0.4 mg sublingual 0.4 mg sublingual Q5M PRN chest 09/13/21 02/28/22 Unknown Rx tablet pain #30 tabs clopidogrel 75 mg tablet 75 mg PO DAILY@20 #90 tabs 10/05/21 02/28/22 Unknown Rx citalopram 20 mg tablet 20 mg PO DAILY 12/24/21 02/28/22 Unknown History diazepam 10 mg/spray (0.1 mL) 10 mg (0.1 mL) intranasal Q5MIN 12/24/21 02/28/22 Unknown Rx nasal spray PRN seizures #2 sprays levetiracetam 1,000 mg tablet 1,000 mg PO BID #60 tabs 12/27/21 02/28/22 Unknown Rx isosorbide mononitrate 30 mg 15 mg PO DIRECTED #90 tabs 01/17/22 02/28/22 Unknown Rx tablet,extended release 24 hr benzonatate 100 mg capsule 100 mg PO TID 02/28/22 02/28/22 Unknown History doxycycline hyclate 100 mg tablet 100 mg PO DAILY 02/28/22 02/28/22 Unknown History Allergies Allergy/AdvReac Type Severity Reaction Status Date / Time No Known Allergies Allergy Verified 02/28/22 08:44 PFSH Acute PFSH: Medical History Angina pectoris Status post PCI to diagonal branch. No more angina Aortic stenosis, mild Stable CAD (coronary artery disease), [place] coronary artery Diagonal branch for significant ostial and proximal diagonal lesion. It was treated with 2 overlapping drug-eluting stents HLD (hyperlipidemia) Malignant neoplasm of overlapping sites of right female breast Obesity Primary osteoarthritis of both hips Varicose vein of leg Surgical History History of total hip arthroplasty Hx of appendectomy Hx of hysterectomy Hx of right mastectomy Family History Grandmother CAD (coronary artery disease) Hypertension Father CAD (coronary artery disease) Cancer Diabetes Hypertension Lung disease Mother Cancer Dementia Diabetes Hypertension Daughter Chronic kidney disease (CKD) eldest Hypertension Daughter Chronic kidney disease (CKD) third child Sister Hyperlipidemia all sisters Hypertension Lung disease Unknown Suicide maternal aunt-GSW- mid 40s Denies family history of Clotting disorder Psychiatric illness Anesthesia complication Bleeding disorder Family history of premature coronary artery disease Stroke Social History Smoking and tobacco status: never smoked Quit status (tobacco): has quit using tobacco Year quit tobacco: 2016 Second hand smoke exposure: Yes Alcohol intake: never History of recent travel: No Vitals/I&O/Wt Last Vital Signs Temp 98.3 F 03/13/22 14:27 Pulse 78 03/13/22 14:27 Resp 18 03/13/22 14:27 BP 144/74 03/13/22 14:27 Pulse Ox 93 03/13/22 14:27 O2 Del Method 03/13/22 14:27 Weight last 48 hrs Weight 77.111 kg Data : 03/13/22 15:30 03/13/22 15:30 Coding Level of Care Code Acute Channel [employer] for [facility] Mark
[2022-03-13 17:27] LABS: Add Urine Microscopic? NO; Charge for UA Resulting for Rev
[2022-03-13 17:30] LABS: Bilirubin Urine Neg (Negative); Blood Urine Neg (Negative); Glucose Urine UA Norm (Normal); Ketones Urine Negative (Negative); Leukocyte Esterase Urine Negative (Negative); Nitrate Urine Negative (Negative); Protein Urine Neg (Negative); Specific Gravity, Urine 1.005 (1.005-1.030); Urine Appearance Clear (CLEAR); Urine Color Yellow (Yellow); Urobilinogen Urine Norm (Negative); pH Urine 7 (5-7)
[2022-03-13 17:39] LABS: Amphetamines Screen Urine Negative (Negative); Barbiturates Screen Urine Negative (Negative); Benzodiazepines Screen Urine Negative (Negative); Cocaine Screen Urine Negative (Negative); Opiate Screen Urine Negative (Negative); PCP Screen Urine Negative (Negative); THC Screen Urine Negative (Negative)
[2022-03-13 17:44] VITALS: BP 175/60; PULSE 62; RESP 16; O2SAT 98
== END 2022-03-13 17:50 | disposition home or self-care (01) ==
PROVIDERS: Emergency Medicine; Emergency Provider Emergency Medicine; PCP Electrodiagnostic Medicine
DX: G45.9 Transient cerebral ischemic attack, unspecified (principal); Z79.82 Long term (current) use of aspirin; Z79.02 Long term (current) use of antithrombotics/antiplatelets; Z87.891 Personal history of nicotine dependence; I25.10 Atherosclerotic heart disease of native coronary artery without angina pectoris; E78.5 Hyperlipidemia, unspecified; Z85.3 Personal history of malignant neoplasm of breast
CPT/HCPCS: 36416; 70450; 70496; 70498; 80053; 80306; 81003; 82962; 85025; 85610; 85730; 93005; 99285; Q9967

== ENCOUNTER → 2022-07-11 14:53 | Outpatient (BNVA) | payer MEDICARE, SELFPAY | PROVIDERS: PCP Electrodiagnostic Medicine; Visit Provider Nurse Practitioner Family | DX: I25.110 Atherosclerotic heart disease of native coronary artery with unstable angina pectoris (principal); I35.0 Nonrheumatic aortic (valve) stenosis | CPT/HCPCS: 93005; 99214 ==

== ENCOUNTER 2022-08-16 15:43 | Inpatient (IN) | payer MEDICARE, SELFPAY ==
[2022-08-16 15:44] VITALS: BP 142/75; PULSE 104; RESP 18; TEMP 39.2; O2SAT 94; BMI 27.1
--- NOTE | 2022-08-16 15:50 | ECG_ITS ---
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 Measurements Intervals [place] Rate: 97 P: 63 ID: [id number] QRS: 48 QRSD: 96 T: 30 QT: 344 QTc: 437 Interpretive Statements SINUS RHYTHM MINIMAL ST DEPRESSION [0.025+ mV ST DEPRESSION] Compared to ECG 03/13/2022 15:35:33 ST (T wave) deviation now present Electronically Signed On 08-16-2022 23:10:58 CDT by Rebecca Berger M.D. [email or web address]
--- NOTE | 2022-08-16 16:04 | XRR_ITS ---
PROCEDURE INFORMATION: Exam: XR Chest Exam date and time: 08/16/2022 4:08 PM Age: 72 years old Clinical indication: Cough and dyspnea; Additional info: Dyspnea/cough TECHNIQUE: Imaging protocol: Radiologic exam of the chest. Views: 1 view. COMPARISON: CT chest [facility] [id number] 12/24/2021 6:30 PM FINDINGS: Lungs: Unremarkable. No consolidation. Pleural spaces: Unremarkable. No pleural effusion. No pneumothorax. Heart/Mediastinum: Unremarkable. No cardiomegaly. Bones/joints: Unremarkable for age. XR/XR chest 1V portable [id number] IMPRESSION: Negative chest
--- NOTE | 2022-08-16 16:16 | ED_ITS ---
Documented by User: Thad Yan DO 08/17/22 05:50 HPI - URI/Sore Throat General: Chief Complaint: Upper Respiratory Infection Stated Complaint: fever/coughing Time Seen by Provider: 08/16/22 18:02 Source: patient Mode of arrival: ambulatory History of Present Illness: 72 yo female present to the ER with complaints of weakness cough and fever. Patient states she has been congested the last se veral days nonproductive cough very weak myalgias flulike symptoms no vomiting no diarrhea no chest pain no abdominal pain no dysuria urgency or frequency. She has had headache myalgias nonproductive cough MD elicited complaint: fever and cough Consistency: constant Able to tolerate fluids by mouth: Yes Exacerbating factors: nothing Relieving factors: nothing Associated symptoms: Reports congestion, cough, fever(s) and myalgias; Deny abdominal pain, change in voice, chills, chest pain, diarrhea, epistaxis, ear or mastoid pain, headache(s), nasal congestion, nausea, rash, rhinorrhea, short of breath, sinus pain, stiffness, sore throat or vomiting Treatments prior to arrival: none Review of Systems Const: Reports: fever(s), body aches, change in appetite, fatigue and malaise; Denies: chills ENMT: Denies: ear or mastoid pain, nasal congestion, epistaxis or sinus pain Card: Denies: chest pain, palpitations, irregular heart rhythm, edema or swelling of feet/ankles Resp: Reports: non-productive cough; Denies: dyspnea or productive cough GI: Denies: abdominal pain, nausea, vomiting or diarrhea : Denies: flank pain, difficulty voiding, dysuria, urinary frequency or urinary urgency Skin/Breast: Denies: rash or pruritus Neuro: Denies: headache(s) PFS ED PFSH: Medical History Angina pectoris Status post PCI to diagonal branch. No more angina Aortic stenosis, mild Stable CAD (coronary artery disease), seminole coronary artery Diagonal branch for significant ostial and proximal diagonal lesion. It was treated with 2 overlapping drug-eluting stents HLD (hyperlipidemia) Malignant neoplasm of overlapping sites of right female breast Obesity Primary osteoarthritis of both hips Varicose vein of leg Surgical History History of total hip arthroplasty Hx of appendectomy Hx of hysterectomy Hx of right mastectomy Family History Grandmother CAD (coronary artery disease) Hypertension Father CAD (coronary artery disease) Cancer Diabetes Hypertension Lung disease Mother Cancer Dementia Diabetes Hypertension Daughter Chronic kidney disease (CKD) eldest Hypertension Daughter Chronic kidney disease (CKD) third child Sister Hyperlipidemia all sisters Hypertension Lung disease Unknown Suicide maternal aunt-GSW- mid 40s Denies family history of Clotting disorder Psychiatric illness Anesthesia complication Bleeding disorder Family history of premature coronary artery disease Stroke Social History Smoking and tobacco status: former smoker Quit status (tobacco): has quit using tobacco Year quit tobacco: 2017 Second hand smoke exposure: Yes Alcohol intake: never Physical Exam Const: GENERAL APPEARANCE: cooperative and comfortable ORIENTATION/CONSCIOUSNESS: Yes awake, Yes oriented to person, Yes oriented to place and Yes oriented to time HENMT: COMMON NORMALS: normocephalic, atraumatic and hearing grossly normal bilaterally HEAD & SCALP: normocephalic and atraumatic Resp: COMMON NORMALS: normal respiratory effort, No retractions, No use of accessory muscles and clear to auscultation bilaterally AUSCULTATION: clear to auscultation bilaterally Cardio: COMMON NORMALS: regular rate, regular rhythm and No murmurs present (Cardio) RATE: regular rate RHYTHM: regular rhythm GI: COMMON NORMALS: Soft to palpation and No hepatosplenomegaly present AUSCULTATION: Yes normoactive bowel sounds PALPATION: Yes Soft to palpation, No Tenderness to palpation present (GI), No Guarding due to palpation present (GI) and Yes No hepatosplenomegaly present Extremity: COMMON NORMALS: normal to inspection, capillary refill normal, no c lubbing, cyanosis or edema, no calf tenderness and no pedal edema Neuro: SENSORIUM/ORIENTATION: Yes oriented to person, Yes oriented to place and Yes oriented to time Skin: COMMON NORMALS: no rashes or lesions noted GENERAL SKIN EXAM: no rashes or lesions noted Course Vital Signs: Vital signs: Vital Signs Temperature 97.7 F 08/17/22 04:00 Pulse Rate 64 08/17/22 04:00 Respiratory Rate 16 08/17/22 04:00 Blood Pressure 113/69 08/17/22 04:00 Pulse Oximetry 93 08/17/22 04:00 Oxygen Delivery Me thod 08/17/22 04:00 Oxygen Flow Rate 2 08/17/22 04:00 MDM - URI/Sore Throat Medical Decision Making Urinary COVID are pending. Patient has fever over 102 this point. Care signed out to Dr. Valdez at change of shift. See final notes for diagnosis and di sposition. Patient presents here with cough high fever along with generalized weakness she is positive for COVID-19 spoke to hospitalist will admit as she is having shortness of breath and weakness due to her COVID infection with a high fevers other blood work is normal Lab Data 08/16/22 15:27 08/16/22 15: Radiology Impressions Chest X-Ray 08/16/22 16:04 IMPRESSION: Negative chest Laboratory Results WBC 8.0 10^3/uL (4.0-10.0) 08/16/22 15: RBC 3.95 10^6/uL (4.1-5.3) L 08/16/22 15: Hgb 12.4 g/dL (11.5-15.3) 08/16/22 15: Hct 37.3 % (37.0-47.0) 08/16/22 15: MCV 94.4 fl (81-99) 08/16/22 15: MCH 31.4 pg (28.0-34.0) 08/16/22 15: MCHC 33.2 g/dL (30.0-36.0) 08/16/22 15: RDW 14.2 % (12.1-15.1) 08/16/22 15: Plt Count 254 10^3/cmm (130-400) 08/16/22 15: MPV 9.7 fL (7.4-10.4) 08/16/22 15: Neut % (Auto) 78.5 % 08/16/22 15: Lymph % (Auto) 10.9 % 08/16/22 15: Cedar % (Auto) 8.9 % 08/16/22 15: Eos % (Auto) 0.9 % 08/16/22 15: Baso % (Auto) 0.5 % 08/16/22 15:27 Neut # (Auto) 6.29 10^3/uL (1.8-7.7) 08/16/22 15: Lymph # (Auto) 0.9 10^3/uL (0.8-4.8) 08/16/22 15: Cedar # (Auto) 0.7 10^3/uL (0.2-0.9) 08/16/22 15: Eos # (Auto) 0.1 10^3/uL (0.0-0.8) 08/16/22 15: Baso # (Auto) 0.0 10^3/uL (0.0-0.1) 08/16/22 15: Nucleated RBC % (auto) 0 % 08/16/22 15: Nucleated RBCs # 0.0 /100WBC 08/16/22 15:27 Sodium 136 mmol/L (136-145) 08/16/22 15:27 Potassium 3.8 mmol/L (3.5-5.1) 08/16/22 15: Chloride 101 mmol/L (98-107) 08/16/22 15: Carbon Dioxide 24 mmol/L (22-29) 08/16/22 15:27 Anion Gap 14.8 (5-19) 08/16/22 15:27 BUN 21 mg/dL (8-23) 08/16/22 15:27 Creatinine 1.2 mg/dL (0.5-0.9) H 08/16/22 15:27 GFR Calculation Not Reportable 08/16/22 15:27 Glucose 97 mg/dL (65-115) 08/16/22 15:27 Calculated Osmolality 285 mOsm/kg (285-295) 08/16/22 15:27 Lactate 1.0 mmol/L (0.5-2.2) 08/16/22 19:55 Calcium 9.3 mg/dL (8.5-10.5) 08/16/22 15:27 Total Bilirubin 0.5 mg/dL (0.15-1.2) 08/16/22 15:27 AST 19 U/L (0-32) 08/16/22 15:27 ALT 13 U/L (0-33) 08/16/22 15:27 Alkaline Phosphatase 113 U/L (35-105) H 08/16/22 15:27 Total Protein 7.2 g/dL (6.6-8.7) 08/16/22 15: Albumin 4.1 g/dL (3.5-5.2) 08/16/22 15: Globulin 3.1 g/dL (1.3-4.6) 08/16/22 15:27 Urine Color Light yellow (Yellow) 08/16/22 18:05 Urine Appearance Cloudy (CLEAR) A 08/16/22 18:05 Urine pH 8 (5-7) H 08/16/22 18:05 Ur Specific [place] 1.010 (1.005-1.030) 08/16/22 18:05 Urine Protein Neg (Negative) 08/16/22 18:05 Urine Glucose (UA) Norm (Normal) 08/16/22 18:05 Urine Ketones Negative (Negative) 08/16/22 18:05 Urine Blood 2+ (Negative) H 08/16/22 18:05 Urine Nitrate Negative (Negative) 08/16/22 18:05 Urine Bilirubin Neg (Negative) 08/16/22 18:05 Prot Sulfosalicylic Acd Negative (Negative) 08/16/22 18:05 Urine Urobilinogen Neg mg/dL (Negative) 08/16/22 18:05 Ur Leukocyte Esterase Negative (Negative) 08/16/22 18:05 Urine RBC 0-4 /hpf (0-2) H 08/16/22 18:05 Urine WBC None /hpf (0-5) 08/16/22 18:05 Ur Squamous Epith Cells 10-15 /hpf (0-5) H 08/16/22 18:05 Amorphous Sediment 3+ /hpf 08/16/22 18:05 Urine Bacteria 1+ /hpf (NONE) H 08/16/22 18:05 Ur Random Sodium 153 mmol/L 08/16/22 18:05 Urine Creatinine 163 mg/dL (28-217) 08/16/22 18:05 Coronavirus 229E (PCR) Not detected (NOT DETECT) 08/16/22 16:47 Influenza Type A Ag negative (Negative) 08/16/22 16:47 Influenza Type B Ag negative (Negative) 08/16/22 16:47 SARS-CoV-2 (PCR) Detected (NOT DETECT) A 08/16/22 16:47 Discharge Plan Discharge Patient Disposition: Admitted As Inpatient Admit Provider: Tony Stringer Clinical Impression: COVID-19 Condition: Stable Coding Level of Care Code 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 No more angina Aortic stenosis, mild Stable CAD (coronary artery disease), seminole coronary artery Diagonal branch for significant ostial and proximal diagonal lesion. It was treated with 2 overlapping drug-eluting stents HLD (hyperlipidemia) Malignant neoplasm of overlapping sites of right female breast Obesity Primary osteoarthritis of both hips Varicose vein of leg Surgical History History of total hip arthroplasty Hx of appendectomy Hx of hysterectomy Hx of right mastectomy Family History Grandmother CAD (coronary artery disease) Hypertension Father CAD (coronary artery disease) Cancer Diabetes Hypertension Lung disease Mother Cancer Dementia Diabetes Hypertension Daughter Chronic kidney disease (CKD) eldest Hypertension Daughter Chronic kidney disease (CKD) third child Sister Hyperlipidemia all sisters Hypertension Lung disease Unknown Suicide maternal aunt-GSW- mid 40s Denies family history of Clotting disorder Psychiatric illness Anesthesia complication Bleeding disorder Family history of premature coronary artery disease Stroke Social History Smoking and tobacco status: former smoker Quit status (tobacco): has quit using tobacco Year quit tobacco: 2016 Second hand smoke exposure: Yes Alcohol intake: never Course Vital Signs: Vital signs: Vital Signs Temperature 97.7 F 03/22/23 04:00 Pulse Rate 64 08/17/22 04:00 Respiratory Rate 16 08/17/22 04:00 Blood Pressure 113/69 08/17/22 04:00 Pulse Oximetry 93 08/17/22 04:00 Oxygen Delivery Me thod 08/17/22 04:00 Oxygen Flow Rate 2 08/17/22 04:00 MDM - URI/Sore Throat Medical Decision Making Patient presents here with cough high fever along with generalized weakness she is positive for COVID-19 spoke to hospitalist will admit as she is having shortness of breath and weakness due to her COVID infection with a high fevers other blood work is normal Lab Data 08/16/22 15:27 08/16/22 15: Radiology Impressions Chest X-Ray 08/16/22 16:04 IMPRESSION: Negative chest Laboratory Results WBC 8.0 10^3/uL (4.0-10.0) 08/16/22 15: RBC 3.95 10^6/uL (4.1-5.3) L 08/16/22 15: Hgb 12.4 g/dL (11.5-15.3) 08/16/22 15: Hct 37.3 % (37.0-47.0) 08/16/22 15: MCV 94.4 fl (81-99) 08/16/22 15: MCH 31.4 pg (28.0-34.0) 08/16/22 15: MCHC 33.2 g/dL (30.0-36.0) 08/16/22 15: RDW 14.2 % (12.1-15.1) 08/16/22 15: Plt Count 254 10^3/cmm (130-400) 08/16/22 15: MPV 9.7 fL (7.4-10.4) 08/16/22 15: Neut % (Auto) 78.5 % 08/16/22 15: Lymph % (Auto) 10.9 % 08/16/22 15: Cedar % (Auto) 8.9 % 08/16/22 15: Eos % (Auto) 0.9 % 08/16/22 15: Baso % (Auto) 0.5 % 08/16/22 15:27 Neut # (Auto) 6.29 10^3/uL (1.8-7.7) 08/16/22 15: Lymph # (Auto) 0.9 10^3/uL (0.8-4.8) 08/16/22 15: Cedar # (Auto) 0.7 10^3/uL (0.2-0.9) 08/16/22 15: Eos # (Auto) 0.1 10^3/uL (0.0-0.8) 08/16/22 15: Baso # (Auto) 0.0 10^3/uL (0.0-0.1) 08/16/22 15: Nucleated RBC % (auto) 0 % 08/16/22 15: Nucleated RBCs # 0.0 /100WBC 08/16/22 15:27 Sodium 136 mmol/L (136-145) 08/16/22 15: Potassium 3.8 mmol/L (3.5-5.1) 08/16/22 15: Chloride 101 mmol/L (98-107) 08/16/22 15: Carbon Dioxide 24 mmol/L (22-29) 08/16/22 15: Anion Gap 14.8 (5-19) 08/16/22 15:27 BUN 21 mg/dL (8-23) 08/16/22 15:27 Creatinine 1.2 mg/dL (0.5-0.9) H 08/16/22 15:27 GFR Calculation Not Reportable 08/16/22 15: Glucose 97 mg/dL (65-115) 08/16/22 15: Calculated Osmolality 285 mOsm/kg (285-295) 08/16/22 15: Lactate 1.0 mmol/L (0.5-2.2) 08/16/22 19:55 Calcium 9.3 mg/dL (8.5-10.5) 08/16/22 15: Total Bilirubin 0.5 mg/dL (0.15-1.2) 08/16/22 15:27 AST 19 U/L (0-32) 08/16/22 15:27 ALT 13 U/L (0-33) 08/16/22 15:27 Alkaline Phosphatase 113 U/L (35-105) H 08/16/22 15:27 Total Protein 7.2 g/dL (6.6-8.7) 08/16/22 15: Albumin 4.1 g/dL (3.5-5.2) 08/16/22 15: Globulin 3.1 g/dL (1.3-4.6) 08/16/22 15:27 Urine Color Light yellow (Yellow) 08/16/22 18:05 Urine Appearance Cloudy (CLEAR) A 08/16/22 18:05 Urine pH 8 (5-7) H 08/16/22 18:05 Ur Specific [place] 1.010 (1.005-1.030) 08/16/22 18:05 Urine Protein Neg (Negative) 08/16/22 18:05 Urine Glucose (UA) Norm (Normal) 08/16/22 18:05 Urine Ketones Negative (Negative) 08/16/22 18:05 Urine Blood 2+ (Negative) H 08/16/22 18:05 Urine Nitrate Negative (Negative) 08/16/22 18:05 Urine Bilirubin Neg (Negative) 08/16/22 18:05 Prot Sulfosalicylic Acd Negative (Negative) 08/16/22 18:05 Urine Urobilinogen Neg mg/dL (Negative) 08/16/22 18:05 Ur Leukocyte Esterase Negative (Negative) 08/16/22 18:05 Urine RBC 0-4 /hpf (0-2) H 08/16/22 18:05 Urine WBC None /hpf (0-5) 08/16/22 18:05 Ur Squamous Epith Cells 10-15 /hpf (0-5) H 08/16/22 18:05 Amorphous Sediment 3+ /hpf 08/16/22 18:05 Urine Bacteria 1+ /hpf (NONE) H 08/16/22 18:05 Ur Random Sodium 153 mmol/L 08/16/22 18:05 Urine Creatinine 163 mg/dL (28-217) 08/16/22 18:05 Coronavirus 229E (PCR) Not detected (NOT DETECT) 08/16/22 16:47 Influenza Type A Ag negative (Negative) 08/16/22 16:47 Influenza Type B Ag negative (Negative) 08/16/22 16:47 SARS-CoV-2 (PCR) Detected (NOT DETECT) A 03/21/23 16:47 EKG Data EKG 1: I personally reviewed and interpreted this EKG as follows: EKG interpretation date: 08/16/22 EKG interpretation time: 15:56 Interpretation: nsr hr [address] or t wave abnormalities qrs 96 qtc 398 Discharge Plan Discharge Patient Disposition: Admitted As Inpatient Admit Provider: Tony Stringer Clinical Impression: COVID-19 Condition: Stable Coding Level of Care 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
--- NOTE | 2022-08-16 16:28 | PC.NURSE ---
PT PLACED ON CONTINUOUS SPO2, NIBP, AND CM.
[2022-08-16 16:49] LABS: Basophils % 0.5 %; Eosinophils # 0.1 10^3/uL (0.0-0.8); Eosinophils % 0.9 %; Hematocrit 37.3 % (37.0-47.0); Hemoglobin 12.4 g/dL (11.5-15.3); Lymphocytes # 0.9 10^3/uL (0.8-4.8); Lymphocytes % 10.9 %; Mean Corpuscular HGB Conc 33.2 g/dL (30.0-36.0); Mean Corpuscular Hemoglobin 31.4 pg (28.0-34.0); Mean Corpuscular Volume 94.4 fl (81-99); Mean Platelet Volume 9.7 fL (7.4-10.4); Monocytes # 0.7 10^3/uL (0.2-0.9); Monocytes % 8.9 %; Neutrophils # 6.29 10^3/uL (1.8-7.7); Neutrophils % 78.5 %; Nucleated Red Blood Cells % 0 %; Platelet Count 254 10^3/cmm (130-400); Red Blood Count 3.95 10^6/uL (4.1-5.3); Red Cell Distribution Width 14.2 % (12.1-15.1)
[2022-08-16 17:18] LABS: Alanine Aminotransferase 13 U/L (0-33); Albumin Level 4.1 g/dL (3.5-5.2); Alkaline Phosphatase 113 U/L (35-105); Anion Gap 14.8 (5-19); Aspartate Amino Transferase 19 U/L (0-32); Blood Urea Nitrogen 21 mg/dL (8-23); Calcium 9.3 mg/dL (8.5-10.5); Carbon Dioxide 24 mmol/L (22-29); Chloride 101 mmol/L (98-107); Globulin 3.1 g/dL (1.3-4.6); Glucose 97 mg/dL (65-115); Osmolality Calculated 285 mOsm/kg (285-295); Potassium 3.8 mmol/L (3.5-5.1); Sodium 136 mmol/L (136-145); Total Bilirubin 0.5 mg/dL (0.15-1.2); Total Protein 7.2 g/dL (6.6-8.7)
[2022-08-16 17:34] LABS: Influenza A by IFA negative (Negative); Influenza B by IFA negative (Negative)
[2022-08-16 18:53] LABS: Add Urine Microscopic? YES; Bilirubin Urine Neg (Negative); Blood Urine 2+ (Negative); Glucose Urine UA Norm (Normal); Ketones Urine Negative (Negative); Leukocyte Esterase Urine Negative (Negative); Nitrate Urine Negative (Negative); Protein Urine Neg (Negative); RBC Urine 0-4 /hpf (0-2); Sulfosalicylic Acid Urine Negative (Negative); Urine Appearance Cloudy (CLEAR); Urine Color Light yellow (Yellow); Urobilinogen Urine Neg (Negative); pH Urine 8 (5-7)
[2022-08-16 18:54] LABS: Add Urine Culture? No; Amorphous Sediment Urine 3+ /hpf; Bacteria Urine 1+ /hpf
[2022-08-16 19:03] LABS: Adenovirus Not Detected (NOT DETECT); Chlamydia Pneumoniae Not Detected (NOT DETECT); Coronavirus 229E,HKU1,NL63,OC4 Not Detected (NOT DETECT); Human Metapneumovirus Not Detected (NOT DETECT); Human Rhinovirus/Enterovirus Not Detected (NOT DETECT); Influenza A Not Detected (NOT DETECT); Influenza A H1 Not Detected (NOT DETECT); Influenza A H1-2009 Not Detected (NOT DETECT); Influenza A H3 Not Detected (NOT DETECT); Influenza B Not Detected (NOT DETECT); Mycoplasma Pneumoniae Not Detected (NOT DETECT); Parainfluenza Virus Type 1 Not Detected (NOT DETECT); Parainfluenza Virus Type 2 Not Detected (NOT DETECT); Parainfluenza Virus Type 3 Not Detected (NOT DETECT); Parainfluenza Virus Type 4 Not Detected (NOT DETECT); Respiratory Syncytial Virus A Not Detected (NOT DETECT); Respiratory Syncytial Virus B Not Detected (NOT DETECT); SARS-COV-2 Detected (NOT DETECT)
[2022-08-16] MEDS: acetaminophen 500 mg Tablet 1000 MG PO (19:35)
[2022-08-16] MEDS: dexamethasone 4 mg/mL INJ 8 MG IVP (19:35)
--- NOTE | 2022-08-16 19:59 | P.HP_ITS ---
Providers/Chief Complaint Primary Care Provider: Justin Chapman DO Chief Complaint: fever/coughing History of Present Illness 72-year-old lady with CAD, stent x3, history of breast cancer, obesity, mild aortic stenosis, other comorbidities, former smoker, has been feeling weak, having a fever, in ER 102.6, sinus tachycardia 104. ESTELLA, creatinine 1.2. Found positive for COVID. In ER saturation is 92% on room air, but she is too weak to try to return home currently. Lives alone. Review of Systems Const: Reports: fever(s), fatigue and malaise ENMT: Denies: throat pain, oral sores or ear or mastoid pain Card: Denies: chest pain, edema, pre-syncope or dyspnea on exertion Resp: Reports: non-productive cough; Denies: dyspnea, productive cough, change in phlegm color or hemoptysis GI: Denies: abdominal pain, nausea, vomiting, diarrhea, constipation, hematochezia or melena : Denies: flank pain, urinary frequency or hematuria Musc: Denies: back pain, joint swelling or joint redness Skin/Breast: Denies: rash or new lesions Neuro: Denies: headache(s), numbness in extremities, weakness in extremities, dizziness, confusion or seizure-like activity Endo: Denies: polyuria or polydipsia Clement/Lymph: Denies: easy bleeding or tender lymph nodes All/Imm: Denies: urticaria Medications/Allergies Home Medications Medication Instructions Recorded Confirmed Last Taken Type aspirin 81 mg tablet,delayed 81 mg PO QAM 06/10/19 07/11/22 03/30/21 08:00 Histo ry release docusate sodium 100 mg capsule 100 mg PO BID 06/10/19 07/11/22 03/30/21 08:00 History (Colace) atorvastatin 80 mg tablet 80 mg PO DAILY@11/07/19 07/11/22 03/29/21 History calcium carbonate 600 mg-vitamin 1 cap PO DAILY@12/16/19 07/11/22 03/29/21 History D3 12.5 mcg (500 unit) capsule (Calcium 600 with Vitamin D3) albuterol sulfate 2.5 mg/3 mL 2.5 mg inhalation Q4H PRN 01/19/20 07/11/22 01/18/20 History (0.083 %) solution for nebulization Shortness Of Breath albuterol sulfate 90 mcg/actuation 2 puff inhalation Q4H PRN 01/19/20 07/11/22 06/22/20 History aerosol inhaler Shortness Of Breath fluticasone furoate 100 1 inh inhalation DAILY@09 01/19/20 07/11/22 03/30/21 History mcg-vilanterol 25 mcg/dose inhalation powder (Breo Ellipta) tiotropium bromide 18 mcg capsule 1 cap inhalation DAILY PRN 06/22/20 07/11/22 06/22/20 History with inhalation device (Spiriva Shortness Of Breath with HandiHaler) metoprolol tartrate 25 mg tablet 12.5 mg PO BID 03/30/21 07/11/22 03/30/21 08:00 History pantoprazole 40 mg tablet,delayed 40 mg PO QAM 03/30/21 07/11/22 03/30/21 08:00 History release ropinirole 0.5 mg tablet 0.5 mg PO BEDTIME 03/30/21 07/11/22 03/29/21 History nitroglycerin 0.4 mg sublingual 0.4 mg sublingual Q5M PRN chest 09/13/21 07/11/22 Unknown Rx tablet pain #30 tabs citalopram 20 mg tablet 20 mg PO DAILY 12/24/21 07/11/22 Unknown History diazepam 10 mg/spray (0.1 mL) 10 mg (0.1 mL) intranasal Q5MIN 12/24/21 07/11/22 Unknown Rx nasal spray PRN seizures #2 sprays isosorbide mononitrate 30 mg 15 mg PO DIRECTED #90 tabs 01/17/22 07/11/22 Unknown Rx tablet,extended release 24 hr benzonatate 100 mg capsule 100 mg PO TID 02/28/22 07/11/22 Unknown History clopidogrel 75 mg tablet 75 mg PO DAILY@20 #90 tabs 03/18/22 07/11/22 Unknown Rx levetiracetam 1,000 mg tablet See Rx Instructions .Route 06/21/22 07/11/22 Unknown Rx .COMPLEX #60 tabs quetiapine 50 mg tablet 50 mg PO DAILY 07/11/22 07/11/22 Unknown History Allergies Allergy/AdvReac Type Severity Reaction Status Date / Time No Known Allergies Allergy Verified 07/11/22 15:13 PFSH Acute PFSH: Medical History Angina pectoris Status post PCI to diagonal branch. No more angina Aortic stenosis, mild Stable CAD (coronary artery disease), [place] coronary artery Diagonal branch for significant ostial and proximal diagonal lesion. It was treated with 2 overlapping drug-eluting stents HLD (hyperlipidemia) Malignant neoplasm of overlapping sites of right female breast Obesity Primary osteoarthritis of both hips Varicose vein of leg Surgical History History of total hip arthroplasty Hx of appendectomy Hx of hysterectomy Hx of right mastectomy Family History Grandmother CAD (coronary artery disease) Hypertension Father CAD (coronary artery disease) Cancer Diabetes Hypertension Lung disease Mother Cancer Dementia Diabetes Hypertension Daughter Chronic kidney disease (CKD) eldest Hypertension Daughter Chronic kidney disease (CKD) third child Sister Hyperlipidemia all sisters Hypertension Lung disease Unknown Suicide maternal aunt-GSW- mid 40s Denies family history of Clotting disorder Psychiatric illness Anesthesia complication Bleeding disorder Family history of premature coronary artery disease Stroke Social History Smoking and tobacco status: former smoker Quit status (tobacco): has quit using tobacco Year quit tobacco: 2016 Second hand smoke exposure: Yes Alcohol intake: never Vitals/I&O/Wt Last Vital Signs Temp 102.6 F H 08/16/22 15:44 Pulse 104 H 08/16/22 15:44 Resp 18 08/16/22 15:44 BP 142/75 08/16/22 15:44 Pulse Ox 94 08/16/22 15:44 O2 Del Method 08/16/22 15:44 Weight last 48 hrs Weight 71.668 kg Physical Exam Const: COMMON NORMALS: patient oriented x3 and alert GENERAL APPEARANCE: cooperative ORIENTATION/CONSCIOUSNESS: Yes awake HENMT: COMMON NORMALS: oropharynx normal Neck/C-Spine: COMMON NORMALS: no JVD Resp: COMMON NORMALS: normal respiratory effort and clear to auscultation bilaterally AUSCULTATION: clear to auscultation bilaterally Cardio: COMMON NORMALS: no JVD, regular rhythm, S1 normal heart sound present and S2 normal heart sound present RHYTHM: regular rhythm HEART SOUNDS: S1 normal heart sound present and S2 normal heart sound present OTHER: Aortic systolic murmur GI: COMMON NORMALS: Normal to inspection, nondistended, normoactive bowel sounds present, Soft to palpation and non-tender PALPATION: Yes Soft to palpation Extremity: COMMON NORMALS: no joint enlargement and no pedal edema Neuro: COMMON NORMALS: patient oriented x3 and moves all extremities SENSORIUM/ORIENTATION: Yes alert Skin: COMMON NORMALS: no rashes or lesions noted GENERAL SKIN EXAM: no rashes or lesions noted Data 08/16/22 15:27 08/16/22 15:27 A&P Assessment and plan (1) COVID-19: Moderate COVID-19 with fever, dry cough, soreness of the bilateral lower chest, upper abdomen especially with coughing, sometimes with bending down. She is feeling very weak, too weak to return home currently. Does have risk factors for severe disease. Discussed with her consideration of return home, bu t she does not feel that she would be able to manage at home at all. Lives alone. Discussed consideration of monitoring versus treatment with remdesivir, she would like to start remdesivir. Follow-up D-dimer. With generalized weakness at risk of DVT, with DVT prophylaxis. Isolation. Oxygen saturation currently 92%, monitor saturation. X-ray reviewed, no suggestion of superimposed bacterial pneumonia at this time. Fever, sinus tachycardia, but does not have any additional sources of possible bacterial infection. Reassess symptoms. PT eval. Case management consultation. Discussed with ER physician. ER records reviewed. Plan Reports history of COPD and asthma CAD Mild aortic stenosis History of breast cancer Obesity Former smoker Other medical problems. Requested medications to be confirmed. Please reconcile once available. Attestations Medical Necessity Statement*: Place in observation for assessment management of COVID-19 of moderate severity with risk of progression to severe illness, severe fatigue, currently unable to manage at home due to lack of social support. Diagnoses COVID-19 U07.1
--- NOTE | 2022-08-16 20:11 | US_ITS ---
WS: [id number] RENAL ULTRASOUND REASON FOR EXAM: ESTELLA COMPARISON: None available. ORDER DATE: 08/16/2022 1:29 AM TECHNIQUE: Grayscale and Doppler ultrasound examination of the kidneys. FINDINGS: Right kidney: Right kidney measures 9.3 cm x 5.4 cm x 5.5 cm. Cortical width 12.9 mm Left kidney: Left kidney measures 9.1 cm x 5.5 cm x 4.8 cm. Cortical width 12.5 mm Renal vascularity unremarkable bilaterally without focal parenchymal change Urinary bladder under distended due to fluid restriction. US/US renal BI* [id number] IMPRESSION: Unremarkable renal sonogram evaluation.
[2022-08-16 20:28] VITALS: BP 101/71; PULSE 91; RESP 14; TEMP 37.3; O2SAT 91
[2022-08-16 20:45] LABS: Urine Creatinine 163 mg/dL (28-217); Urine Random Sodium 153 mmol/L
[2022-08-16 20:48] VITALS: BP 120/69; PULSE 87; RESP 15; O2SAT 91
[2022-08-16 21:15] VITALS: BP 131/77; PULSE 86; RESP 17; TEMP 36.8; O2SAT 92
[2022-08-16 21:55] VITALS: BMI 30.5
[2022-08-16] MEDS: remdesivir 200 MG in sodium chloride 0.9% (100 ml) 60 ML 100 MG IV (22:41)
[2022-08-16] MEDS: enoxaparin 40 mg/0.4 mL Syringe SUBCUT (22:41)
[2022-08-17] VITALS (10 sets, daily range): BP systolic 98–131; BP diastolic 62–72; PULSE 64–82; RESP 15–18; TEMP 36.3–36.8; O2SAT 91–96
--- NOTE | 2022-08-17 00:49 | PC.NURSE ---
SOFT HAT BINDER informed nurse that patient's oxygen saturations were in high 80s. 2L NC were applied to patient at this time.
[2022-08-17 05:14] LABS: Basophils % 0.1 %; Hematocrit 36.5 % (37.0-47.0); Hemoglobin 11.9 g/dL (11.5-15.3); Lymphocytes # 0.6 10^3/uL (0.8-4.8); Lymphocytes % 9.1 %; Mean Corpuscular HGB Conc 32.6 g/dL (30.0-36.0); Mean Corpuscular Hemoglobin 30.6 pg (28.0-34.0); Mean Corpuscular Volume 93.8 fl (81-99); Mean Platelet Volume 9.5 fL (7.4-10.4); Monocytes # 0.1 10^3/uL (0.2-0.9); Neutrophils # 6.21 10^3/uL (1.8-7.7); Neutrophils % 88.5 %; Nucleated Red Blood Cells % 0 %; Platelet Count 235 10^3/cmm (130-400); Red Blood Count 3.89 10^6/uL (4.1-5.3); Red Cell Distribution Width 13.7 % (12.1-15.1)
[2022-08-17 05:27] LABS: D Dimer 1.84 ug/mIFEU (0-0.59)
[2022-08-17 05:31] LABS: Alanine Aminotransferase 13 U/L (0-33); Albumin Level 3.7 g/dL (3.5-5.2); Alkaline Phosphatase 106 U/L (35-105); Anion Gap 15.1 (5-19); Aspartate Amino Transferase 20 U/L (0-32); Blood Urea Nitrogen 20 mg/dL (8-23); Calcium 8.6 mg/dL (8.5-10.5); Carbon Dioxide 24 mmol/L (22-29); Chloride 105 mmol/L (98-107); Glucose 142 mg/dL (65-115); Osmolality Calculated 295 mOsm/kg (285-295); Potassium 4.1 mmol/L (3.5-5.1); Sodium 140 mmol/L (136-145); Total Bilirubin 0.3 mg/dL (0.15-1.2); Total Protein 6.7 g/dL (6.6-8.7)
[2022-08-17] MEDS: ascorbic acid 500 mg Tablet PO ×2 (09:02→18:33)
[2022-08-17] MEDS: dexamethasone 10 mg/mL INJ 6 MG IVP (09:03)
[2022-08-17] MEDS: metoprolol tartrate 25 mg Tablet 12.5 MG PO ×2 (09:03→20:19)
[2022-08-17] MEDS: cholecalciferol (vitamin D3) 1,000 unit Tablet 1000 UNIT PO (09:03)
[2022-08-17] MEDS: docusate sodium 100 mg Capsule PO ×2 (09:03→18:33)
[2022-08-17] MEDS: quetiapine 25 mg Tablet 50 MG PO (09:03)
[2022-08-17] MEDS: isosorbide mononitrate ER 30 mg Tablet 15 MG PO (09:03)
[2022-08-17] MEDS: citalopram 20 mg Tablet PO (09:04)
[2022-08-17] MEDS: clopidogrel 75 mg Tablet PO (09:04)
[2022-08-17] MEDS: aspirin 81 mg EC Tablet PO (09:04)
[2022-08-17] MEDS: levETIRAcetam 500 mg Tablet 1000 MG PO ×2 (10:02→18:33)
--- NOTE | 2022-08-17 10:43 | CT_ITS ---
WS: [id number] CTA OF THE CHEST WITH PULMONARY EMBOLISM PROTOCOL TECHNIQUE: High-resolution contrast enhanced CTA of the chest with coronal and sagittal reformatted i mages with pulmonary embolism protocol. MIP images are also reviewed. CLINICAL INFORMATION: sob COMPARISON: CT chest 2021 DLP: 336.[address] scans at [facility] use at least one of these dose optimization techniques: automated e xposure control; mA and/or kV adjustment per patient size (includes targeted exams where dose is matc hed to clinical indication); or iterative reconstruction. FINDINGS: Proximal main pulmonary arteries appear normal. Normal segmental and subsegmental pulmonary arteries. No evidence of pulmonary embolus. Moderate chronic emphysematous changes. A few calcified granulomas. No focal pneumonia or pleural flu id. Slight bibasilar atelectasis. Coronary calcification. Normal caliber thoracic aorta. Normal desce nding thoracic aorta. No mediastinal or hilar lymphadenopathy. No axillary lymphadenopathy. Small eso phageal hiatal hernia. Air-fluid level in the stomach. Fluid distended stomach. Adrenal glands are no rmal. CT/CT angio chest PE protcl [id number] IMPRESSION: 1. Proximal main pulmonary arteries are normal. No evidence of pulmonary embol us. 2. Chronic emphysematous changes. No acute pulmonary infiltrates. 3. Small esophageal hiatal hernia. 4. No other acute findings.
[2022-08-17] MEDS: iohexol 350 mg/mL 500 mL Btl (per mL) IV (11:29)
--- NOTE | 2022-08-17 12:59 | P.PN_ITS ---
Subjective Subjective: Patient was seen this morning, she tells me that she is having some chest discomfort, she feels short of breath, she is on 2 L, she does not use oxygen at home, she feels weak, nonproductive cough I was also able to speak to patient's sister over the phone, in detail about COVID-19 also spoke to p atient about it, she feels weak she thinks that she needs to potentially get rehab Vitals/I&O/Wt Last Vital Signs Temp 97.7 F 08/17/22 12:06 Pulse 82 08/17/22 12:06 Resp 17 08/17/22 12:06 BP 116/66 08/17/22 12:06 Pulse Ox 96 08/17/22 12:06 O2 Del Method 08/17/22 12:06 O2 Flow Rate 2 08/17/22 12:06 FiO2 3 08/17/22 09:46 08/16/22 08/17/22 08/17/22 22:59 06:59 14:59 Intake Total 0 / 0 100 / 100 Balance 0 / 0 100 / 100 Weight last 48 hrs Weight 80.739 kg Weight 71.668 kg Physical Exam Const: COMMON NORMALS: no acute distress and patient oriented x3 Resp: COMMON NORMALS: normal respiratory effort, No retractions and No use of accessory muscles OTHER: Decreased breath sounds bilateral lung bases Cardio: COMMON NORMALS: regular rate, regular rhythm, S1 normal heart sound present and S2 normal heart sound present RATE: regular rate RHYTHM: regular rhythm HEART SOUNDS: S1 normal heart sound present and S2 normal heart sound present GI: COMMON NORMALS: Normal to inspection, nondistended, normoactive bowel sounds present and non-tender Extremity: COMMON NORMALS: no pedal edema Neuro: COMMON NORMALS: patient oriented x3 Psych: COMMON NORMALS: mental status grossly normal Data 08/17/22 04:57 08/17/22 04:57 Micro: Microbiology 08/16/22 19:55 Blood Culture - Preliminary Blood SPECIMEN COLLECTED 08/16/22 19:55 Blood Culture - Preliminary Blood SPECIMEN COLLECTED A&P Assessment and plan (1) COVID-19: (2) Acute respiratory failure with hypoxia: (3) Chest pain: (4) Muscular deconditioning: (5) Protein calorie malnutrition: (6) Emphysema lung: (7) Generalized weakness: Plan Acute hypoxic respiratory failure secondary to COVID-19, COPD exacerbation Plan -Admit to general medical floors -Isolation precautions -Vitamin D, vitamin C -Continue DuoNebs, budesonide -Decadron 6 mg IV push every 12 hours -Continue remdesivir -Monitor respiratory status closely -Follow blood cultures, sputum cultures -Patient is DNR/DNI -Lovenox for DVT prophylaxis Chest pain complaints -CT angiogram of the chest to evaluate for possible pulmonary embolism -Serial EKGs, serial troponins, telemetry monitoring -Continue aspirin, continue statin Protein calorie malnutrition, mild -Consult nutrition -Protein shakes Physical deconditioning, PT OT Creatinine 1.0, IV fluids history of COPD and asthma CAD Mild aortic stenosis History of breast cancer Obesity Former smoker Other medical problems. Requested medications to be confirmed. Please reconcile once available. Attestations Medical Necessity Statement*: Patient requires hospitalization for acute hypoxic respiratory failure second COVID-19 pneumonia. COPD exacerbation Diagnoses COVID-19 U07.1 Acute respiratory failure with hypoxia J96.01 Chest pain R07.9 Muscular deconditioning R29.898 Protein calorie malnutrition E46 Emphysema lung J43.9 Generalized weakness R53.1
--- NOTE | 2022-08-17 13:32 | ECG_ITS ---
[facility] Test Date: 2022-08-17 Pat Name: Karina Leija Department: Room: 269 Gender: Female Antenna Specialist: : 1950 Requested By: Maninder Byrd Order Number: [id number] Chloe MD: Dutch Enciso M.D. Measurements Intervals [place] Rate: 66 P: 57 [place]: 170 QRS: 51 QRSD: 93 T: 50 QT: 407 QTc: 429 Interpretive Statements SINUS RHYTHM Compared to ECG 08/16/2022 15:56:37 ST (T wave) deviation no longer present Electronically Signed On 08-17-2022 16:31:56 CDT by Dutch Enciso M.D. [id number]
[2022-08-17] MEDS: sodium chloride 0.9% 1,000 ML 50 ML IV (13:56)
[2022-08-17 14:47] LABS: Troponin(5th) Baseline 6 ng/L (0-10)
--- NOTE | 2022-08-17 15:01 | ECG_ITS ---
[facility] Test Date: 2022-08-17 Pat Name: Karina Leija Department: Room: 269 Gender: Female Machine Compositor: : 1950 Requested By: Maninder Byrd Order Number: [id number] Chloe MD: Dutch Enciso M.D. Measurements Intervals [place] Rate: 59 P: 51 [place]: 149 QRS: 58 QRSD: 100 T: 46 QT: 439 QTc: 438 Interpretive Statements SINUS BRADYCARDIA Compared to ECG 08/17/2022 13:32:23 Sinus rhythm no longer present Electronically Signed On 08-17-2022 16:46:04 CDT by Dutch Enciso M.D. [email or web address].[email or web address]/store/[id number]
[2022-08-17 17:32] LABS: Troponin 5 2HR 6.27 ng/L (0-10)
[2022-08-17 17:37] LABS: Troponin 5 2HR Delta 0.27 ABS# (0-10)
[2022-08-17] MEDS: remdesivir 100 MG in sodium chloride 0.9% (100 ml) 80 ML IV (18:33)
--- NOTE | 2022-08-17 19:01 | ECG_ITS ---
[facility] Test Date: 2022-08-17 Pat Name: Karina Leija Department: Room: 269 Gender: Female Rn Picu: : 1950 Requested By: Maninder Byrd Order Number: [id number] Chloe MD: Dutch Enciso M.D. Measurements Intervals [place] Rate: 68 P: 68 [place]: 171 QRS: 63 QRSD: 101 T: 52 QT: 342 QTc: 366 Interpretive Statements SINUS RHYTHM NONSPECIFIC T-WAVE ABNORMALITY Compared to ECG 08/17/2022 15:15:45 T-wave abnormality now present Sinus bradycardia no longer present Electronically Signed On 08-18-2022 7:43:22 CDT by Dutch Enciso M.D. [email or web address].[email or web address].[email or web address]/store/[id number]
[2022-08-17] MEDS: ropinirole 0.25 mg Tablet 0.5 MG PO (20:19)
[2022-08-17] MEDS: benzonatate 100 mg Capsule PO (20:19)
[2022-08-17] MEDS: enoxaparin 40 mg/0.4 mL Syringe SUBCUT (21:35)
[2022-08-17 21:52] LABS: Troponin 5 6HR Delta 0 ng/L (0-12)
--- NOTE | 2022-08-17 23:47 | PC.NURSE ---
Assumed pt care at this time.
[2022-08-18] VITALS (13 sets, daily range): BP systolic 97–139; BP diastolic 61–72; PULSE 57–94; RESP 16–19; TEMP 36.3–36.7; O2SAT 92–99
[2022-08-18] MEDS: quetiapine 25 mg Tablet 50 MG PO ×2 (00:37→20:38)
[2022-08-18] MEDS: pantoprazole DR 40 mg Tablet PO (05:40)
[2022-08-18 06:07] LABS: Basophils % 0.1 %; Hematocrit 32.8 % (37.0-47.0); Hemoglobin 10.8 g/dL (11.5-15.3); Lymphocytes # 0.9 10^3/uL (0.8-4.8); Lymphocytes % 9.3 %; Mean Corpuscular HGB Conc 32.9 g/dL (30.0-36.0); Mean Corpuscular Hemoglobin 30.7 pg (28.0-34.0); Mean Corpuscular Volume 93.2 fl (81-99); Mean Platelet Volume 10.2 fL (7.4-10.4); Monocytes # 0.6 10^3/uL (0.2-0.9); Monocytes % 5.8 %; Neutrophils # 8.12 10^3/uL (1.8-7.7); Neutrophils % 84.3 %; Nucleated Red Blood Cells % 0 %; Platelet Count 219 10^3/cmm (130-400); Red Blood Count 3.52 10^6/uL (4.1-5.3); Red Cell Distribution Width 13.7 % (12.1-15.1); White Blood Count 9.6 10^3/uL (4.0-10.0)
[2022-08-18 06:37] LABS: Alanine Aminotransferase 13 U/L (0-33); Albumin Level 3.4 g/dL (3.5-5.2); Alkaline Phosphatase 92 U/L (35-105); Blood Urea Nitrogen 20 mg/dL (8-23); Carbon Dioxide 24 mmol/L (22-29); Chloride 108 mmol/L (98-107); Globulin 2.5 g/dL (1.3-4.6); Glucose 117 mg/dL (65-115); Osmolality Calculated 300 mOsm/kg (285-295); Sodium 143 mmol/L (136-145); Total Bilirubin 0.2 mg/dL (0.15-1.2); Total Protein 5.9 g/dL (6.6-8.7)
[2022-08-18 06:53] LABS: Aspartate Amino Transferase 26 U/L (0-32)
[2022-08-18] MEDS: ipratropium-albuterol 3 mL Neb INHALATION ×3 (07:51→20:20)
[2022-08-18] MEDS: budesonide 0.5 mg/2 mL Neb INHALATION ×2 (07:51→20:21)
[2022-08-18] MEDS: dexamethasone 10 mg/mL INJ 6 MG IVP (09:43)
[2022-08-18] MEDS: clopidogrel 75 mg Tablet PO (09:43)
[2022-08-18] MEDS: cholecalciferol (vitamin D3) 1,000 unit Tablet 1000 UNIT PO (09:43)
[2022-08-18] MEDS: ascorbic acid 500 mg Tablet PO ×2 (09:43→18:08)
[2022-08-18] MEDS: docusate sodium 100 mg Capsule PO ×2 (09:43→18:08)
[2022-08-18] MEDS: citalopram 20 mg Tablet PO (09:43)
[2022-08-18] MEDS: levETIRAcetam 500 mg Tablet 1000 MG PO ×2 (09:44→18:08)
[2022-08-18] MEDS: isosorbide mononitrate ER 30 mg Tablet 15 MG PO (09:44)
[2022-08-18] MEDS: aspirin 81 mg EC Tablet PO (09:44)
[2022-08-18] MEDS: metoprolol tartrate 25 mg Tablet 12.5 MG PO ×2 (09:44→20:38)
[2022-08-18] MEDS: sodium chloride 0.9% 1,000 ML 50 ML IV (09:46)
--- NOTE | 2022-08-18 10:39 | PC.CHAP ---
Pastoral Care Encounter/Spiritual Assessment Type of Contact [] Declined dry house worker visit [] Patient/Family/Request visit [] Outpatient visit [] Follow-up visit [] Physician referral [] Code/Alert [x] Routine visit [] Staff referral [] Actively dying [] Patient sleeping [] Family support [] [] Out of room [] Palliative care [] [x] Receiving care in room [] Pre-surgical visit [] Trauma [] Long length of stay [] ICU visit [x] Other: covid Relational/Emotional Strength [] Patient feels connected with others/family/visitors/staff [] Distress [] Loneliness/isolation [] Abandonment Spirituality of Patient [] Person of Sarah [] Attends Uatsdin of their Sarah [] Believes in Prayer [] Reads Bible or Pentecostalism materials [] There are Spiritual issues to be addressed [employer] Cutter [employer] Interventions [] Prayer [] Active listening [] Non-anxious presence [] Spiritual/emotional support [] Crisis/trauma care [] Spiritual counseling [] Bereavement support [] Provided bereavement packet [] Provided Bible/devotional materials [] Provided toy/stuffed animal, coloring book to patient or family member [] Provided Communion [] Anointing/[place] [] Salvation [] Completed spiritual assessment [] Other: Impact on Illness or Injury [] Angry [] Fearful [] Anxious [] Often cries [] Exhaustion [] Unable to work [] Unable to attend taoism [] Unable to walk/stand [] Unable to read [] Unable to drive [] Unable to eat/drink [] Unable to sleep [] Unable to be with family [] Patient intubated [] Other: Summary covid Time spent with patient 5 mins
--- NOTE | 2022-08-18 14:21 | P.PN_ITS ---
Subjective Subjective: Patient was seen this morning, she tells me that she continues to feel short of breath, no fevers, no chills Vitals/I&O/Wt Last Vital Signs Temp 97.8 F 08/18/22 12:00 Pulse 72 08/18/22 12:00 Resp 16 08/18/22 12:00 BP 102/61 08/18/22 12:00 Pulse Ox 96 08/18/22 12:00 O2 Del Method 08/18/22 12:00 O2 Flow Rate 2 08/18/22 12:00 FiO2 3 08/17/22 09:46 08/17/22 08/18/22 08/18/22 22:59 06:59 14:59 Intake Total 930 / 930 120 / 1050 1111.667 / 1111.667 Balance 930 / 930 120 / 1050 1111.667 / 1111.667 Weight last 48 hrs Weight 80.739 kg Weight 71.668 kg Physical Exam Const: COMMON NORMALS: no acute distress and patient oriented x3 Neck/C-Spine: COMMON NORMALS: no JVD Resp: COMMON NORMALS: normal respiratory effort, No retractions, No use of accessory muscles and clear to auscultation bilaterally AUSCULTATION: clear to auscultation bilaterally Cardio: COMMON NORMALS: no JVD, regular rate, regular rhythm, S1 normal heart sound present and S2 normal heart sound present RATE: regular rate RHYTHM: regular rhythm HEART SOUNDS: S1 normal heart sound present and S2 normal heart sound present GI: COMMON NORMALS: Normal to inspection, nondistended, normoactive bowel sounds present and non-tender Extremity: COMMON NORMALS: no pedal edema Neuro: COMMON NORMALS: patient oriented x3 Psych: COMMON NORMALS: mental status grossly normal Data 08/18/22 05:11 08/18/22 05:11 Micro: Microbiology 08/16/22 19:55 Blood Culture - Preliminary Blood NEGATIVE TO DATE 08/16/22 19:55 Blood Culture - Preliminary Blood NEGATIVE TO DATE A&P Assessment and plan (1) COVID-19: (2) Acute respiratory failure with hypoxia: (3) Chest pain: (4) Muscular deconditioning: (5) Protein calorie malnutrition: (6) Emphysema lung: (7) Generalized weakness: Plan Acute hypoxic respiratory failure secondary to COVID-19, COPD exacerbation Plan -Admit to general medical floors -Isolation precautions -Vitamin D, vitamin C -Continue DuoNebs, budesonide -Decadron 6 mg IV push every 12 hours -Continue remdesivir -Monitor respiratory status closely -Follow blood cultures, sputum cultures -Patient is DNR/DNI -Lovenox for DVT prophylaxis Chest pain complaints -CT angiogram negative for pulmonary embolism -Serial EKGs, serial troponins 6-hour troponin 6 6, telemetry monitoring -Continue aspirin, continue statin Protein calorie malnutrition, mild -Consult nutrition -Protein shakes Physical deconditioning, PT OT Creatinine 0.8, stop fluids history of COPD and asthma CAD Mild aortic stenosis History of breast cancer Obesity Former smoker Other medical problems. Requested medications to be confirmed. Please reconcile once available. Attestations Medical Necessity Statement*: Patient requires hospitalization for COVID-19 pneumonia Diagnoses COVID-19 U07.1 Acute respiratory failure with hypoxia J96.01 Chest pain R07.9 Muscular deconditioning R29.898 Protein calorie malnutrition E46 Emphysema lung J43.9 Generalized weakness R53.1
[2022-08-18] MEDS: remdesivir 100 MG in sodium chloride 0.9% (100 ml) 80 ML IV (18:08)
[2022-08-18] MEDS: ropinirole 0.25 mg Tablet 0.5 MG PO (20:38)
[2022-08-18] MEDS: enoxaparin 40 mg/0.4 mL Syringe SUBCUT (22:27)
[2022-08-19] VITALS (12 sets, daily range): BP systolic 96–139; BP diastolic 56–72; PULSE 62–86; RESP 16–19; TEMP 36.6–37.1; O2SAT 95–97
[2022-08-19] MEDS: ipratropium-albuterol 3 mL Neb INHALATION ×5 (00:39→19:59)
[2022-08-19] MEDS: pantoprazole DR 40 mg Tablet PO (05:29)
[2022-08-19 06:10] LABS: Basophils % 0.1 %; Hematocrit 31.2 % (37.0-47.0); Hemoglobin 10.3 g/dL (11.5-15.3); Lymphocytes # 0.9 10^3/uL (0.8-4.8); Lymphocytes % 11.9 %; Mean Corpuscular Hemoglobin 31.4 pg (28.0-34.0); Mean Corpuscular Volume 95.1 fl (81-99); Mean Platelet Volume 10.1 fL (7.4-10.4); Monocytes # 0.4 10^3/uL (0.2-0.9); Monocytes % 5.7 %; Neutrophils # 6.31 10^3/uL (1.8-7.7); Neutrophils % 81.9 %; Nucleated Red Blood Cells % 0 %; Platelet Count 221 10^3/cmm (130-400); Red Blood Count 3.28 10^6/uL (4.1-5.3); Red Cell Distribution Width 13.8 % (12.1-15.1); White Blood Count 7.7 10^3/uL (4.0-10.0)
[2022-08-19 06:32] LABS: Alanine Aminotransferase 14 U/L (0-33); Albumin Level 3.1 g/dL (3.5-5.2); Alkaline Phosphatase 82 U/L (35-105); Anion Gap 11.5 (5-19); Aspartate Amino Transferase 21 U/L (0-32); Blood Urea Nitrogen 20 mg/dL (8-23); Calcium 8.1 mg/dL (8.5-10.5); Carbon Dioxide 25 mmol/L (22-29); Chloride 109 mmol/L (98-107); Globulin 2.6 g/dL (1.3-4.6); Glucose 135 mg/dL (65-115); Osmolality Calculated 299 mOsm/kg (285-295); Potassium 3.5 mmol/L (3.5-5.1); Sodium 142 mmol/L (136-145); Total Bilirubin 0.2 mg/dL (0.15-1.2); Total Protein 5.7 g/dL (6.6-8.7)
[2022-08-19] MEDS: budesonide 0.5 mg/2 mL Neb INHALATION ×2 (08:04→19:59)
[2022-08-19] MEDS: isosorbide mononitrate ER 30 mg Tablet 15 MG PO (10:04)
[2022-08-19] MEDS: levETIRAcetam 500 mg Tablet 1000 MG PO ×2 (10:04→18:01)
[2022-08-19] MEDS: clopidogrel 75 mg Tablet PO (10:04)
[2022-08-19] MEDS: ascorbic acid 500 mg Tablet PO ×2 (10:04→18:01)
[2022-08-19] MEDS: dexamethasone 10 mg/mL INJ 6 MG IVP (10:05)
[2022-08-19] MEDS: citalopram 20 mg Tablet PO (10:05)
[2022-08-19] MEDS: cholecalciferol (vitamin D3) 1,000 unit Tablet 1000 UNIT PO (10:05)
[2022-08-19] MEDS: docusate sodium 100 mg Capsule PO ×2 (10:05→18:01)
[2022-08-19] MEDS: aspirin 81 mg EC Tablet PO (10:05)
[2022-08-19] MEDS: metoprolol tartrate 25 mg Tablet 12.5 MG PO ×2 (10:06→20:04)
--- NOTE | 2022-08-19 15:11 | PM.PN ---
Subjective Subjective: Patient was seen this morning, she continues to complains of shortness of breath, she feels anxious at times Vitals/I&O/Wt Last Vital Signs Temp 98.8 F 08/19/22 11:25 Pulse 62 08/19/22 15:10 Resp 16 08/19/22 15:10 BP 98/56 08/19/22 11:25 Pulse Ox 96 08/19/22 15:10 O2 Del Method 08/19/22 15:10 O2 Flow Rate 2 08/19/22 15:10 FiO2 3 08/17/22 09:46 08/19/22 08/19/22 08/19/22 06:59 14:59 22:59 Intake Total 120 19911521.971 1335 / 1280 Balance 120 19919827.073 6869 / 1280 Physical Exam Const: COMMON NORMALS: no acute distress and patient oriented x3 Resp: COMMON NORMALS: normal respiratory effort, No retractions, No use of accessory muscles and clear to auscultation bilaterally AUSCULTATION: clear to auscultation bilaterally Cardio: COMMON NORMALS: regular rate, regular rhythm, S1 normal heart sound present and S2 normal heart sound present RATE: regular rate RHYTHM: regular rhythm HEART SOUNDS: S1 normal heart sound present and S2 normal heart sound present GI: COMMON NORMALS: Normal to inspection, nondistended, normoactive bowel sounds present and non-tender Extremity: COMMON NORMALS: no pedal edema Neuro: COMMON NORMALS: patient oriented x3 Psych: COMMON NORMALS: mental status grossly normal Data 08/19/22 05:34 08/19/22 05:34 A&P Assessment and plan (1) COVID-19: (2) Acute respiratory failure with hypoxia: (3) Chest pain: (4) Muscular deconditioning: (5) Protein calorie malnutrition: (6) Emphysema lung: (7) Generalized weakness: Plan Acute hypoxic respiratory failure secondary to COVID-19, COPD exacerbation Plan -Admit to general medical floors -Isolation precautions -Vitamin D, vitamin C -Continue DuoNebs, budesonide -Decadron 6 mg IV push every 12 hours -Continue remdesivir -Monitor respiratory status closely -Follow blood cultures, sputum cultures -Patient is DNR/DNI -Lovenox for DVT prophylaxis Chest pain complaints -CT angiogram negative for pulmonary embolism -Serial EKGs, serial troponins 6-hour troponin 6 6, telemetry monitoring -Continue aspirin, continue statin Protein calorie malnutrition, mild -Consult nutrition -Protein shakes Physical deconditioning, PT OT Creatinine 0.8, Anxiety, Klonopin as needed history of COPD and asthma CAD Mild aortic stenosis History of breast cancer Obesity Former smoker Other medical problems. Attestations Medical Necessity Statement*: Patient requires hospitalization for acute respiratory failure secondary to COVID-19 Diagnoses COVID-19 U07.1 Acute respiratory failure with hypoxia J96.01 Chest pain R07.9 Muscular deconditioning R29.898 Protein calorie malnutrition E46 Emphysema lung J43.9 Generalized weakness R53.1
[2022-08-19] MEDS: acetaminophen 325 mg Tablet 650 MG PO (18:01)
[2022-08-19] MEDS: CLONazepam 0.5 mg Tablet 0.25 MG PO (18:09)
[2022-08-19] MEDS: remdesivir 100 MG in sodium chloride 0.9% (100 ml) 80 ML IV (18:29)
--- NOTE | 2022-08-19 18:32 | PC.NURSE ---
DR. WILLIAM NOTIFIED THAT PATIENT HAD A NEW ONSET COMPLAINT OF BACK PAIN THAT IS RADIATING DOWN BOTH LEGS. PATIENT STATED IT STARTED AROUND 1600 AND HAD GOTTEN PROGRESSIVELY WORSE OVER THE LAST TWO HOURS. TYLENOL ADMINISTERED AND DR. WILLIAM NOTIFIED VIA VOALTE MESSAGE, WITH NO RESPONSE.
[2022-08-19] MEDS: quetiapine 25 mg Tablet 50 MG PO (20:03)
[2022-08-19] MEDS: ropinirole 0.25 mg Tablet 0.5 MG PO (20:04)
[2022-08-19] MEDS: enoxaparin 40 mg/0.4 mL Syringe SUBCUT (23:55)
[2022-08-20] VITALS (8 sets, daily range): BP systolic 113–137; BP diastolic 68–80; PULSE 61–76; RESP 14–18; TEMP 36.1–37.1; O2SAT 92–96
[2022-08-20] MEDS: ipratropium-albuterol 3 mL Neb INHALATION ×2 (03:28→08:49)
[2022-08-20 04:55] LABS: Basophils % 0.2 %; Hematocrit 31.9 % (37.0-47.0); Hemoglobin 10.6 g/dL (11.5-15.3); Lymphocytes # 1.2 10^3/uL (0.8-4.8); Lymphocytes % 19.6 %; Mean Corpuscular HGB Conc 33.2 g/dL (30.0-36.0); Mean Corpuscular Hemoglobin 31.1 pg (28.0-34.0); Mean Corpuscular Volume 93.5 fl (81-99); Mean Platelet Volume 10.4 fL (7.4-10.4); Monocytes # 0.4 10^3/uL (0.2-0.9); Neutrophils % 73.4 %; Nucleated Red Blood Cells % 0 %; Platelet Count 225 10^3/cmm (130-400); Red Blood Count 3.41 10^6/uL (4.1-5.3); Red Cell Distribution Width 14.1 % (12.1-15.1); White Blood Count 6.1 10^3/uL (4.0-10.0)
[2022-08-20 05:07] LABS: Blood Urea Nitrogen 21 mg/dL (8-23); Calcium 8.4 mg/dL (8.5-10.5); Carbon Dioxide 26 mmol/L (22-29); Chloride 105 mmol/L (98-107); Glucose 102 mg/dL (65-115); Osmolality Calculated 293 mOsm/kg (285-295); Sodium 140 mmol/L (136-145)
[2022-08-20 05:08] LABS: Anion Gap 13.5 (5-19); Potassium 4.5 mmol/L (3.5-5.1)
[2022-08-20 05:11] LABS: Slide Review Slide Review Perform
[2022-08-20] MEDS: pantoprazole DR 40 mg Tablet PO (05:36)
[2022-08-20] MEDS: budesonide 0.5 mg/2 mL Neb INHALATION (08:49)
[2022-08-20] MEDS: isosorbide mononitrate ER 30 mg Tablet 15 MG PO (09:30)
[2022-08-20] MEDS: cholecalciferol (vitamin D3) 1,000 unit Tablet 1000 UNIT PO (09:30)
[2022-08-20] MEDS: aspirin 81 mg EC Tablet PO (09:30)
[2022-08-20] MEDS: citalopram 20 mg Tablet PO (09:31)
[2022-08-20] MEDS: levETIRAcetam 500 mg Tablet 1000 MG PO (09:31)
[2022-08-20] MEDS: docusate sodium 100 mg Capsule PO (09:31)
[2022-08-20] MEDS: clopidogrel 75 mg Tablet PO (09:31)
[2022-08-20] MEDS: ascorbic acid 500 mg Tablet PO (09:31)
[2022-08-20] MEDS: dexamethasone 10 mg/mL INJ 6 MG IVP (09:32)
--- NOTE | 2022-08-20 09:35 | PC.SOCIAL ---
IMM update IMM updated with patient. Verbalized an understanding. Initialled, dated, timed, and placed in chart.
--- NOTE | 2022-08-20 10:50 | PM.DCS ---
Discharge Providers Date of Admission: 08/17/22 08:08 Date of Discharge: August 20, 2022 Attending Provider at Admission: Tony Stringer Attending Provider at Discharge: Maninder Byrd MD Primary Care Provider: Justin Chapman DO Diagnoses at Discharge Discharge Diagnosis (1) COVID-19: Status: Acute (2) Acute respiratory failure with hypoxia: Status: Acute (3) Chest pain: Status: Acute (4) Muscular deconditioning: Status: Acute (5) Protein calorie malnutrition: Status: Acute (6) Emphysema lung: Status: Acute (7) Generalized weakness: Status: Acute Reason for Visit Reason for Visit: fever/coughing Hospital Course Hospital Course 72-year-old lady with CAD, stent x3, history of breast cancer, obesity, mild aortic stenosis, other comorbidities, former smoker, has been feeling weak, having a fever, in ER 102.6, sinus tachycardia 104.? ESTELLA, creatinine 1.2.? Found positive for COVID.? In ER saturation is 92% on room air, but she is too weak to try to return home currently.? Patient was admitted to [facility] for acute hypoxic respiratory failure secondary to COVID-19, COPD exacerbation, received remdesivir, Decadron, overall clinically monitored, patient's clinical condition improved, ambulating without symptomatology, remained afebrile, on room air, discharged home, with close follow-up with primary care provider Physical Exam Const: COMMON NORMALS: no acute distress and patient oriented x3 Resp: COMMON NORMALS: normal respiratory effort, No retractions, No use of accessory muscles and clear to auscultation bilaterally AUSCULTATION: clear to auscultation bilaterally Cardio: COMMON NORMALS: regular rate, regular rhythm, S1 normal heart sound present and S2 normal heart sound present RATE: regular rate RHYTHM: regular rhythm HEART SOUNDS: S1 normal heart sound present and S2 normal heart sound present GI: COMMON NORMALS: Normal to inspection, nondistended, normoactive bowel sounds present and non-tender Extremity: COMMON NORMALS: no pedal edema Neuro: COMMON NORMALS: patient oriented x3 Psych: COMMON NORMALS: mental status grossly normal Discharge Data Studies Completed and Pending Completed Studies During Hospitalization Category Date Time Status CT angio chest PE protcl [id number] Routine Cat Scan 08/17/22 10:43 Completed XR chest 1V portable [id number] Stat Exams 08/16/22 16:04 Completed US renal BI* [id number] Stat Ultrasound 08/16/22 20:11 Completed Pending at discharge Category Date Time Status Basic Metabolic Panel AM LABS Lab 08/21/22 04:00 Ordered Basic Metabolic Panel AM LABS Lab 08/22/22 04:00 Ordered Blood Culture Stat Lab 08/16/22 19:55 Results Complete Blood Count w/Auto AM LABS Lab 08/21/22 04:00 Ordered Complete Blood Count w/Auto AM LABS Lab 08/22/22 04:00 Ordered Radiology Impressions Chest X-Ray 08/16/22 16:04 IMPRESSION: Negative chest Renal Ultrasound 08/16/22 20:11 IMPRESSION: Unremarkable renal sonogram evaluation. Chest CTA 08/17/22 10:43 IMPRESSION: 1. Proximal main pulmonary arteries are normal. No evidence of pulmonary embolus. 2. Chronic emphysematous changes. No acute pulmonary infiltrates. 3. Small esophageal hiatal hernia. 4. No other acute findings. Laboratory Results WBC 6.1 10^3/uL (4.0-10.0) 08/20/22 03:58 RBC 3.41 10^6/uL (4.1-5.3) L 08/20/22 03:58 Hgb 10.6 g/dL (11.5-15.3) L 08/20/22 03:58 Hct 31.9 % (37.0-47.0) L 08/20/22 03:58 MCV 93.5 fl (81-99) 08/20/22 03:58 MCH 31.1 pg (28.0-34.0) 08/20/22 03:58 MCHC 33.2 g/dL (30.0-36.0) 08/20/22 03:58 RDW 14.1 % (12.1-15.1) 08/20/22 03:58 Plt Count 225 10^3/cmm (130-400) 08/20/22 03:58 MPV 10.4 fL (7.4-10.4) 08/20/22 03:58 Neut % (Auto) 73.4 % 08/20/22 03:58 Lymph % (Auto) 19.6 % 08/20/22 03:58 [place] % (Auto) 6.0 % 08/20/22 03:58 Eos % (Auto) 0.0 % 08/20/22 03:58 Baso % (Auto) 0.2 % 08/20/22 03:58 Neut # (Auto) 4.50 10^3/uL (1.8-7.7) 08/20/22 03:58 Lymph # (Auto) 1.2 10^3/uL (0.8-4.8) 08/20/22 03:58 [place] # (Auto) 0.4 10^3/uL (0.2-0.9) 08/20/22 03:58 Eos # (Auto) 0.0 10^3/uL (0.0-0.8) 08/20/22 03:58 Baso # (Auto) 0.0 10^3/uL (0.0-0.1) 08/20/22 03:58 Nucleated RBC % (auto) 0 % 08/20/22 03:58 Nucleated RBCs # 0.0 /100WBC 08/20/22 03:58 D-Dimer 1.84 ug/mIFEU (0-0.59) H 08/17/22 04:57 Sodium 140 mmol/L (136-145) 08/20/22 03:58 Potassium 4.5 mmol/L (3.5-5.1) 08/20/22 03:58 Chloride 105 mmol/L (98-107) 08/20/22 03:58 Carbon Dioxide 26 mmol/L (22-29) 08/20/22 03:58 Anion Gap 13.5 (5-19) 08/20/22 03:58 BUN 21 mg/dL (8-23) 08/20/22 03:58 Creatinine 0.8 mg/dL (0.5-0.9) 08/20/22 03:58 GFR Calculation Not Reportable 08/20/22 03:58 Glucose 102 mg/dL (65-115) 08/20/22 03:58 Calculated Osmolality 293 mOsm/kg (285-295) 08/20/22 03:58 Lactate 1.0 mmol/L (0.5-2.2) 08/16/22 19:55 Calcium 8.4 mg/dL (8.5-10.5) L 08/20/22 03:58 Total Bilirubin 0.2 mg/dL (0.15-1.2) 08/19/22 05:34 AST 21 U/L (0-32) 08/19/22 05:34 ALT 14 U/L (0-33) 08/19/22 05:34 Alkaline Phosphatase 82 U/L (35-105) 08/19/22 05:34 Troponin T Baseline 6 ng/L (0-10) 08/17/22 14:00 Troponin T 120 Minute 6.27 ng/L (0-10) 08/17/22 16:45 Delta Troponin T 0.27 ABS# (0-10) 08/17/22 16:45 Troponin T Hi Sens 6Hr 6.00 ng/L (0-10) 08/17/22 21:07 Troponin T Hi Sens 6Hr Delta 0 ng/L (0-12) 08/17/22 21:07 Total Protein 5.7 g/dL (6.6-8.7) L 08/19/22 05:34 Albumin 3.1 g/dL (3.5-5.2) L 08/19/22 05:34 Globulin 2.6 g/dL (1.3-4.6) 08/19/22 05:34 Urine Color Light yellow (Yellow) 08/16/22 18:05 Urine Appearance Cloudy (CLEAR) A 08/16/22 18:05 Urine pH 8 (5-7) H 08/16/22 18:05 Ur Specific [place] 1.010 (1.005-1.030) 08/16/22 18:05 Urine Protein Neg (Negative) 08/16/22 18:05 Urine Glucose (UA) Norm (Normal) 08/16/22 18:05 Urine Ketones Negative (Negative) 08/16/22 18:05 Urine Blood 2+ (Negative) H 08/16/22 18:05 Urine Nitrate Negative (Negative) 08/16/22 18:05 Urine Bilirubin Neg (Negative) 08/16/22 18:05 Prot Sulfosalicylic Acd Negative (Negative) 08/16/22 18:05 Urine Urobilinogen Neg mg/dL (Negative) 08/16/22 18:05 Ur Leukocyte Esterase Negative (Negative) 08/16/22 18:05 Urine RBC 0-4 /hpf (0-2) H 08/16/22 18:05 Urine WBC None /hpf (0-5) 08/16/22 18:05 Ur Squamous Epith Cells 10-15 /hpf (0-5) H 08/16/22 18:05 Amorphous Sediment 3+ /hpf 08/16/22 18:05 Urine Bacteria 1+ /hpf (NONE) H 08/16/22 18:05 Ur Random Sodium 153 mmol/L 08/16/22 18:05 Urine Creatinine 163 mg/dL (28-217) 08/16/22 18:05 Coronavirus 229E (PCR) Not detected (NOT DETECT) 08/16/22 16:47 Influenza Type A Ag negative (Negative) 08/16/22 16:47 Influenza Type B Ag negative (Negative) 08/16/22 16:47 SARS-CoV-2 (PCR) Detected (NOT DETECT) A 08/16/22 16:47 Vitals Last Vital Signs Temp 98.8 F 08/20/22 08:00 Pulse 75 08/20/22 08:57 Resp 16 08/20/22 08:57 BP 137/80 08/20/22 08:00 Pulse Ox 96 08/20/22 08:57 O2 Del Method 08/20/22 08:57 O2 Flow Rate 2.5 08/20/22 08:00 FiO2 3 08/17/22 09:46 Discharge Plan Discharge Patient Disposition: Home Health Service Condition: Stable Prescriptions: New benzonatate 100 mg capsule 100 mg PO TID PRN (Reason: cough) 7 Days Qty: 21 0RF Continued aspirin 81 mg tablet,delayed release (DR/EC) 81 mg PO QAM docusate sodium [Colace] 100 mg capsule 100 mg PO BID calcium carbonate-vitamin D3 [Calcium 600 with Vitamin D3] 600 mg(1,500mg) -500 unit capsule 1 cap PO DAILY@20 atorvastatin 80 mg tablet 80 mg PO DAILY@20 nitroglycerin 0.4 mg tablet, sublingual 0.4 mg SUBLINGUAL Q5M PRN (Reason: chest pain) Qty: 30 2RF Rx Instructions: until response; do not exceed 3 doses per episode isosorbide mononitrate 30 mg tablet extended release 24 hr 15 mg PO DIRECTED Qty: 90 3RF Rx Instructions: 15mg daily; May take extra 15mg is BP <140/90 clopidogrel 75 mg tablet 75 mg PO DAILY@20 Qty: 90 2RF levetiracetam 1,000 mg tablet See Rx Instructions .ROUTE .COMPLEX Qty: 60 2RF Dose Instruction: TAKE 1 TABLET BY MOUTH TWICE DAILY Rx Instructions: TAKE 1 TABLET BY MOUTH TWICE DAILY albuterol sulfate 2.5 mg /3 mL (0.083 %) solution for nebulization 2.5 mg inhalation Q4H PRN (Reason: Shortness Of Breath) albuterol sulfate 90 mcg/actuation HFA aerosol inhaler 2 puff INHALATION Q4H PRN (Reason: Shortness Of Breath) fluticasone furoate-vilanterol [Breo Ellipta] 100-25 mcg/dose blister with device 1 inh INHALATION DAILY@09 ropinirole 0.5 mg tablet 0.5 mg PO BEDTIME metoprolol tartrate 25 mg tablet 12.5 mg PO BID pantoprazole 40 mg tablet,delayed release (DR/EC) 40 mg PO QAM citalopram 20 mg tablet 20 mg PO DAILY diazepam 10 mg/spray (0.1 mL) spray,non-aerosol 10 mg intranasal Q5MIN PRN (Reason: seizures) Qty: 2 0RF Rx Instructions: seizure longer than 5 minutes or multiple without return to baseline. hydrocodone-acetaminophen 5-325 mg tablet 1 tab PO BID PRN (Reason: Pain) Seroquel 100 mg Tablet 100 mg PO BEDTIME Discontinued benzonatate 100 mg capsule 100 mg PO TID Discharge Orders: Discharge Order (Routine); Ordered 08/20/22 Ordered By: Maninder Byrd Referrals: [facility] [Outside] Justin Chapman DO [Primary Care Provider] - 09/12/22 11:00 am Discharge Diet: Cardiac Discharge Activity: Resume usual activity Patient Instructions: COVID-19 (Coronavirus Disease 2019) (DC), Opioid Safety Activity Restrictions/Additional Instructions: - Continue to be ambulatory at home -Monitor for signs of blood clot including but not limited to calf pain, calf swelling, sudden onset shortness of breath hemoptysis, chest pain if so go to emergency room -Continue to self isolate, socially distance, facemask, hand wash for at least 2 weeks -See your primary care provider in 1 to 2 weeks Discharge Attestations Time Spent in Discharge Care*: greater than 30 min Quality Metrics Clinical Quality Measures [ No reported AMI, CVA or VTE this stay] Coding Level of Care Code 01127 Total time (in minutes) for Discharge: 40 Diagnoses COVID-19 U07.1 Acute respiratory failure with hypoxia J96.01 Chest pain R07.9 Muscular deconditioning R29.898 Protein calorie malnutrition E46 Emphysema lung J43.9 Generalized weakness R53.1
== END 2022-08-20 12:40 | disposition home health service (06) | DRG 177 ==
LOC: ER 19:28 → MEDSURG 20:35
PROVIDERS: Family Medicine; Admitting Provider Internal Medicine; Emergency Provider Emergency Medicine; PCP Electrodiagnostic Medicine; Visit Provider Family Medicine
DX: U07.1 COVID-19 (principal); J96.01 Acute respiratory failure with hypoxia; N17.9 Acute kidney failure, unspecified; E46 Unspecified protein-calorie malnutrition; I25.10 Atherosclerotic heart disease of native coronary artery without angina pectoris; Z95.5 Presence of coronary angioplasty implant and graft; Z85.3 Personal history of malignant neoplasm of breast; I35.0 Nonrheumatic aortic (valve) stenosis; Z87.891 Personal history of nicotine dependence; J43.9 Emphysema, unspecified; Z79.82 Long term (current) use of aspirin; Z79.02 Long term (current) use of antithrombotics/antiplatelets; Z79.51 Long term (current) use of inhaled steroids; Z79.891 Long term (current) use of opiate analgesic; Z90.11 Acquired absence of right breast and nipple; Z66 Do not resuscitate; Z68.30 Body mass index [BMI] 30.0-30.9, adult
CPT/HCPCS: 36415; 71045; 71275; 76770; 76857; 80048; 80053; 81001; 82570; 83605; 84300; 84484; 85025; 85378; 87040; 87635; 87804; 93005; 94640; 94664; 94760; 96372; 96374; 97110; 97116; 97161; 99285; G0378; J0248; J1100; J1650; J7030; J7626; Q9967

== ENCOUNTER 2022-10-04 07:56 | Outpatient (CLI) | payer MEDICARE, SELFPAY ==
--- NOTE | 2022-10-04 08:10 | US_ITS ---
WS: [id number] ULTRASOUND LEFT BREAST HISTORY: L BREAST PALPABLE AREA AT 12:00 COMPARISON: 01/07/2022 TECHNIQUE: 2-D and Doppler. Hypoechoic nodule LEFT breast at 12:00, 1 cm from the nipple is reidentified. No increased vascularit y. Nodule measures 6 x 4 x 6 mm. Very slight increase in size since the prior examination. This could be due to difference in imaging technique. Suggest continued six-month ultrasound follow-up. US/US breast LT limited* [id number] IMPRESSION: BI-RADS: 3-Probably Benign FOLLOW-UP: 6 Month Follow-up Very minimal increase in size of the hypoechoic mass at 12:00. Recommend contin ued close imaging surveillance.
== END 2022-10-04 07:57 | disposition home or self-care (01) ==
PROVIDERS: PCP Electrodiagnostic Medicine; Visit Provider Internal Medicine Hematology & Oncology
DX: N63.25 Unspecified lump in the left breast, overlapping quadrants (principal)
CPT/HCPCS: 76642

== ENCOUNTER → 2023-01-09 14:41 | Outpatient (BNVA) | payer MEDICARE, SELFPAY | PROVIDERS: PCP Electrodiagnostic Medicine; Visit Provider Internal Medicine Cardiovascular Disease | DX: R00.2 Palpitations (principal); R53.1 Weakness; I25.110 Atherosclerotic heart disease of native coronary artery with unstable angina pectoris; I35.0 Nonrheumatic aortic (valve) stenosis; Z87.891 Personal history of nicotine dependence | CPT/HCPCS: 93005; 93225; 99214 ==

== ENCOUNTER 2023-01-27 09:39 | Outpatient (CLI) | payer MEDICARE, SELFPAY ==
--- NOTE | 2023-01-27 10:30 | USCV_ITS ---
Karina Leija Age: 72 Gender: F : 1950 Exam Date: 01/27/2023 10:38 Ordering Phys: Zee Zavaleta MD ([email or web address]) Technologist: Antonino Musa Exam Location[place] [facility] [place]ication: SOB BP: 136 / 84 HR: 68 Rhythm: Sinus Technical Quality: Adequate MEASUREMENTS (Male / Female) Normal Values 2D ECHO LVOT Diameter 2.0 cm LV Ejection Fraction MOD 2C 66.0 % LV Ejection Fraction 2C AL 67.6 % LA Diameter 3.6 cm LA Width 3.1 cm LA Height 5.0 cm RA Width 3.0 cm RA Height 4.2 cm Aorta at Sinotubular Diameter 2.3 cm IVC Diameter 1.6 cm M-MODE Aortic Annulus Diameter 2.6 cm LA Ao Ratio MM 1.3 MV E Point Septal Separation 1.1 cm DOPPLER AV Peak Velocity 273.0 cm/s LVOT Peak Velocity 121.0 cm/s AV Area Cont Eq vti 1.2 cm squared AV Area Cont Eq pk 1.4 cm squared MV Area PHT 4.4 cm squared Mitral E to A Ratio 0.8 MV E' Velocity 41.5 cm/s Mitral E to MV E' Ratio 9.4 Mitral E to LV E' Lateral Ratio 9.2 Mitral E to LV E' Septal Ratio 9.7 TR Peak Velocity 270.1 cm/s TR Peak Gradient 29.2 mmHg TR Mean Velocity 201.1 cm/s TR Mean Gradient 17.6 mmHg TR Velocity Time Integral 76.7 cm Right Atrial Pressure 3.0 mmHg Pulmonary Artery Systolic Pressu 32.2 mmHg PV Peak Velocity 94.7 cm/s RV Acceleration Time 0.1 s RV Ejection Time 0.3 s RV AcT/ET 0.3 FINDINGS Left Ventricle Normal left ventricular size, systolic function and wall thickness, with no regional wall motion abnormalities. Left ventricular ejection fraction is estimated at 65-70 %. Normal diastolic function. Right Ventricle Normal right ventricular size and systolic function. Right ventricular systolic pressure 37 mmHg. Right Atrium Normal right atrial size. Left Atrium Mildly increased left atrial size. Mitral Valve Structurally normal mitral valve. No mitral valve stenosis. Mild mitral valve regurgitation. Aortic Valve Moderately thickened and calcified trileaflet aortic valve. Mild to moderate aortic valve stenosis velocity 2.7 m/s, peak gradient 30 mmHg, mean gradient 19 mm Hg and aortic valve area 1.2 cm squared. Moderate aortic valve regurgitation. Tricuspid Valve Structurally normal tricuspid valve. No tricuspid valve stenosis. Mild tricuspid valve regurgitation. Pulmonic Valve Pulmonic valve not well visualized. No pulmonary valve stenosis. No pulmonary valve regurgitation. Pericardium No pericardial effusion. Aorta Normal sized aortic root. IVC Normal IVC dimension with >50% respiratory change of the inferior vena cava. CONCLUSIONS 1. Normal left ventricular size, systolic function and wall thickness, with no regional wall motion abnormalities. Left ventricular ejection fraction is estimated at 65-70 %. Normal diastolic function. 2. Mild to moderate aortic valve stenosis velocity 2.7 m/s, peak gradient 30 mmHg, mean gradient 19 mm Hg and aortic valve area 1.2 cm squared. Moderate aortic valve regurgitation. 3. Mild mitral and tricuspid valve regurgitation. 4. Mild pulmonary hypertension with pulmonary pressure estimated at 37 mmHg. 5. Compared to study dated 06/22/21, valve regurgitation seems to have worsened. Zee Zavaleta MD (Electronically Signed) Final Date: 06 February 2023 17:57 S
== END 2023-01-27 09:40 | disposition home or self-care (01) ==
LOC: RAD 09:41
PROVIDERS: PCP Electrodiagnostic Medicine; Visit Provider Internal Medicine Cardiovascular Disease
DX: I63.9 Cerebral infarction, unspecified (principal); R06.02 Shortness of breath; I08.3 Combined rheumatic disorders of mitral, aortic and tricuspid valves
CPT/HCPCS: 93306

== ENCOUNTER 2023-04-11 09:46 | Outpatient (CLI) | payer MEDICARE, SELFPAY ==
--- NOTE | 2023-04-11 10:00 | MM_ITS ---
WS: [id number] DIAGNOSTIC LEFT DIGITAL TOMOSYNTHESIS MAMMOGRAPHY WITH CAD. LEFT breast ultrasound, limited HISTORY: Left Breast Palpable area at 12:00 COMPARISON: 12/08/2021, 12/31/2021 and 10/27/2020 Technique: CC, MLO and ML views. Spot compression LEFT MLO and CC. Breast composition: There are scattered areas of fibroglandular density. No discrete mass or nodule i s identified at 12:00 posterior to the nipple. Slight increase in soft tissue at the nipple. No disto rtion or mass. There is slight retraction of the nipple. LEFT breast ultrasound, limited. Reidentified is a hypoechoic mass at 12:00, 1 cm from the nipple measuring 5 x 4 x 4 mm. Slightly dec reased in size as compared to the prior study. No increased vascularity. IMPRESSION: MM/[place] [id number] BI-RADS: 3-Probably Benign FOLLOW UP: 6 Month Follow-up Patient to return in 6 months for ultrasound only LEFT breast mass at 12:00. St able since last examination with no increase in size.
--- NOTE | 2023-04-11 10:42 | US_ITS ---
WS: [id number] DIAGNOSTIC LEFT DIGITAL TOMOSYNTHESIS MAMMOGRAPHY WITH CAD. LEFT breast ultrasound, limited HISTORY: Left Breast Palpable area at 12:00 COMPARISON: 12/08/2021, 12/31/2021 and 10/27/2020 Technique: CC, MLO and ML views. Spot compression LEFT MLO and CC. Breast composition: There are scattered areas of fibroglandular density. No discrete mass or nodule i s identified at 12:00 posterior to the nipple. Slight increase in soft tissue at the nipple. No disto rtion or mass. There is slight retraction of the nipple. LEFT breast ultrasound, limited. Reidentified is a hypoechoic mass at 12:00, 1 cm from the nipple measuring 5 x 4 x 4 mm. Slightly dec reased in size as compared to the prior study. No increased vascularity. IMPRESSION: US/US breast LT limited* [id number] BI-RADS: 3-Probably Benign FOLLOW UP: 6 Month Follow-up Patient to return in 6 months for ultrasound only LEFT breast mass at 12:00. St able since last examination with no increase in size.
== END 2023-04-11 09:47 | disposition home or self-care (01) ==
PROVIDERS: PCP Electrodiagnostic Medicine; Visit Provider Electrodiagnostic Medicine
DX: N63.20 Unspecified lump in the left breast, unspecified quadrant (principal); Z85.3 Personal history of malignant neoplasm of breast
CPT/HCPCS: 76642; 77061; G0279

== ENCOUNTER 2023-04-12 11:20 | Oncology outpatient (recurring) (ONCR) | payer MEDICARE, SELFPAY ==
[2023-04-12 12:00] VITALS: BP 123/68; PULSE 93; RESP 16; TEMP 36.7; O2SAT 95
[2023-04-12 12:14] LABS: Basophils # 0.1 10^3/uL (0.0-0.1); Eosinophils # 0.3 10^3/uL (0.0-0.8); Eosinophils % 4.5 %; Hematocrit 33.3 % (36-47); Lymphocytes % 16.6 %; Mean Corpuscular HGB Conc 33.9 g/dL (30-55); Mean Corpuscular Hemoglobin 31.2 pg (27-33); Mean Platelet Volume 8.9 fL (7.4-10.4); Monocytes # 0.4 10^3/uL (0.2-0.9); Monocytes % 7.1 %; Neutrophils # 4.38 10^3/uL (1.8-7.7); Neutrophils % 70.5 %; Nucleated Red Blood Cells % 0 %; Platelet Count 321 10^3/cmm (157-399); Red Blood Count 3.62 10^6/uL (3.85-5.65); Red Cell Distribution Width 14.5 % (12.1-15.1); White Blood Count 6.21 10^3/uL (3.29-11.43)
[2023-04-12 12:25] LABS: Alanine Aminotransferase 27 U/L (0-33); Albumin Level 3.8 g/dL (3.5-5.2); Alkaline Phosphatase 148 U/L (35-105); Anion Gap 11.4 (5-19); Aspartate Amino Transferase 29 U/L (0-32); Blood Urea Nitrogen 16 mg/dL (8-23); Calcium 8.9 mg/dL (8.5-10.5); Carbon Dioxide 26 mmol/L (22-29); Chloride 105 mmol/L (98-107); Globulin 2.8 g/dL (1.3-4.6); Glucose 126 mg/dL (65-115); Osmolality Calculated 289 mOsm/kg (285-295); Potassium 4.4 mmol/L (3.5-5.1); Sodium 138 mmol/L (136-145); Total Bilirubin 0.3 mg/dL (0.15-1.2); Total Protein 6.6 g/dL (6.6-8.7)
== END 2023-04-27 23:59 | disposition home or self-care (01) ==
PROVIDERS: Nurse Practitioner Family; PCP Electrodiagnostic Medicine; Visit Provider Internal Medicine Medical Oncology
DX: Z85.3 Personal history of malignant neoplasm of breast (principal); R51.9 Headache, unspecified; R40.0 Somnolence; Z79.899 Other long term (current) drug therapy; Z78.0 Asymptomatic menopausal state; R29.898 Other symptoms and signs involving the musculoskeletal system; Z17.0 Estrogen receptor positive status [ER+]
CPT/HCPCS: 36415; 80053; 85025; 99214

== ENCOUNTER 2023-04-24 06:50 | Outpatient (CLI) | payer MEDICARE, SELFPAY ==
[2023-04-24] MEDS: iohexol 350 mg/mL 500 mL Btl (per mL) PO (07:08)
--- NOTE | 2023-04-24 07:18 | CT_ITS ---
WS: [id number] CT HEAD TECHNIQUE: Noncontrast and contrast-enhanced CT of the head. CLINICAL INFORMATION: FALL, HIGH RISK MEDICATION COMPARISON: CT 03/13/2022 DLP: 1007.[address] scans at [facility] use at least one of these dose optimization techniques: automated e xposure control; mA and/or kV adjustment per patient size (includes targeted exams where dose is matc hed to clinical indication); or iterative reconstruction. FINDINGS: No evidence intracranial hemorrhage or mass effect. Ventricular system and basal cisterns are patent. Mild small vessel changes. Mild parenchymal volume loss. No extra-axial fluid collections. No abnormal intracranial enhancement. Mastoid air cells are well aerated. Mild mucosal thickening in the paranasal sinuses. IMPRESSION: 1. No evidence intracranial hemorrhage or mass effect. 2. Mild small vessel changes with mild parenchymal volume loss. 3. No abnormal intracranial enhancement. 4. No other suspicious findings or significant change from previous
--- NOTE | 2023-04-24 08:30 | CT_ITS ---
WS: [id number] CT ABDOMEN PELVIS TECHNIQUE: Contrast-enhanced CT of the abdomen and pelvis with coronal and sagittal reformatted image s. CLINICAL INFORMATION: fall, on high risk medication COMPARISON: 2019 DLP: 607.[address] scans at [facility] use at least one of these dose optimization techniques: automated e xposure control; mA and/or kV adjustment per patient size (includes targeted exams where dose is matc hed to clinical indication); or iterative reconstruction. FINDINGS: Mild diffuse fatty infiltration of the liver. Mild hepatomegaly. Normal gallbladder. Normal portal ve in and splenic vein. Normal spleen. Small esophageal hernia. Slight bibasal atelectasis. Normal pancreas. Normal caliber abdominal aorta. Vascular calcification. Adrenal glands are normal. N o hydronephrosis in either kidney. Bilateral THAs degrade images in the pelvis. Tiny fat-containing u mbilical hernia. Mild constipation. IMPRESSION: 1. Prior hysterectomy and appendectomy. 2. Bilateral THAs degrade images in the pelvis. 3. Mild diffuse fatty infiltration of the liver. Mild hepatomegaly. 4. Small esophageal hernia. 5. Small fat-containing umbilical hernia. 6. Mild colonic constipation. 7. No other acute findings.
[2023-04-24] MEDS: iohexol 350 mg/mL 500 mL Btl (per mL) IV (09:15)
== END 2023-04-24 06:51 | disposition home or self-care (01) ==
LOC: RAD 06:51
PROVIDERS: PCP Electrodiagnostic Medicine; Visit Provider Nurse Practitioner Family
DX: Z79.899 Other long term (current) drug therapy (principal); R29.898 Other symptoms and signs involving the musculoskeletal system; W19.XXXA Unspecified fall, initial encounter; Z90.89 Acquired absence of other organs; Z90.710 Acquired absence of both cervix and uterus; K76.0 Fatty (change of) liver, not elsewhere classified; R16.0 Hepatomegaly, not elsewhere classified; K44.9 Diaphragmatic hernia without obstruction or gangrene; K42.9 Umbilical hernia without obstruction or gangrene; K59.00 Constipation, unspecified
CPT/HCPCS: 70470; 74177; Q9967

== ENCOUNTER 2023-05-15 12:10 | Oncology outpatient (recurring) (ONCR) | payer MEDICARE, SELFPAY ==
[2023-05-15 12:27] VITALS: BP 118/67; PULSE 78; RESP 18; TEMP 35.6; O2SAT 93
[2023-05-15 13:09] LABS: Basophils % 0.9 %; Eosinophils # 0.3 10^3/uL (0.0-0.8); Eosinophils % 6.9 %; Hematocrit 36.3 % (36-47); Lymphocytes # 1.3 10^3/uL (0.8-4.8); Mean Corpuscular HGB Conc 33.1 g/dL (30-55); Mean Corpuscular Hemoglobin 31.1 pg (27-33); Mean Platelet Volume 9.2 fL (7.4-10.4); Monocytes # 0.3 10^3/uL (0.2-0.9); Monocytes % 6.9 %; Neutrophils # 2.59 10^3/uL (1.8-7.7); Neutrophils % 56.1 %; Nucleated Red Blood Cells % 0 %; Platelet Count 274 10^3/cmm (157-399); Red Blood Count 3.86 10^6/uL (3.85-5.65); Red Cell Distribution Width 14.6 % (12.1-15.1); White Blood Count 4.62 10^3/uL (3.29-11.43)
[2023-05-15 13:31] LABS: Alanine Aminotransferase 17 U/L (0-33); Albumin Level 4.1 g/dL (3.5-5.2); Alkaline Phosphatase 149 U/L (35-105); Blood Urea Nitrogen 17 mg/dL (8-23); Calcium 9.2 mg/dL (8.5-10.5); Carbon Dioxide 27 mmol/L (22-29); Chloride 102 mmol/L (98-107); Creatinine Clr Calc Pharmacy 46.9438; Globulin 2.9 g/dL (1.3-4.6); Glucose 73 mg/dL (65-115); Osmolality Calculated 286 mOsm/kg (285-295); Sodium 138 mmol/L (136-145); Total Bilirubin 0.4 mg/dL (0.15-1.2)
[2023-05-15 13:35] LABS: Anion Gap 13.5 (5-19); Aspartate Amino Transferase 27 U/L (0-32); Potassium 4.5 mmol/L (3.5-5.1)
== END 2023-05-28 23:59 | disposition home or self-care (01) ==
PROVIDERS: Nurse Practitioner Family; PCP Electrodiagnostic Medicine; Visit Provider Internal Medicine Medical Oncology
DX: Z85.3 Personal history of malignant neoplasm of breast (principal); R51.9 Headache, unspecified; R40.0 Somnolence; Z79.899 Other long term (current) drug therapy; Z78.0 Asymptomatic menopausal state; R29.898 Other symptoms and signs involving the musculoskeletal system; Z17.0 Estrogen receptor positive status [ER+]
CPT/HCPCS: 36415; 80053; 85025; 99214

== ENCOUNTER 2023-06-17 18:36 | Emergency (ER) | payer MEDICARE, SELFPAY ==
[2023-06-17 18:38] VITALS: BP 132/74; PULSE 92; RESP 14; TEMP 37.1; O2SAT 95
--- NOTE | 2023-06-17 18:56 | USR_ITS ---
PROCEDURE INFORMATION: Exam: US Duplex Right Lower Extremity Veins, Limited Exam date and time: 06/17/2023 7:27 PM Age: 73 years old Clinical indication: Pain; Leg, lower; Right; Additional info: Swelling TECHNIQUE: Imaging protocol: Real-time duplex ultrasound of the right extremity with 2-D panda scale, color Doppler flow and spectral waveform analysis including responses to compression and other maneuvers (when performed) with image documentation. Limited exam was focused on the right lower extremity veins. COMPARISON: US renal BI* [id number] 08/17/2022 1:37 AM FINDINGS: Right deep veins: Unremarkable. The common femoral, femoral, proximal profunda femoral, popliteal, posterior tibial and peroneal veins are patent without thrombus. Normal Doppler waveforms. Normal compressibility and/or augmentation response. Superficial veins: Unremarkable. Saphenofemoral junction is patent without thrombus. Soft tissues: Mild subcutaneous edema in the calf. US/[place] [id number] IMPRESSION: No sonographic evidence of deep vein thrombosis.
--- NOTE | 2023-06-17 19:48 | ED_ITS ---
HPI - Extremity Problem 2 General: Chief complaint: Extremity Problem,Nontraumatic Stated complaint: RIGHT LEG PAIN/SWELLING Time Seen by Provider: 06/17/23 19:43 Source: patient Mode of arrival: ambulatory Limitations: no limitations History of Present Illness: Patient presents emergency department today for evaluation treatment of red, blistery rash noted to the distal medial lower extremities bilaterally. Patient states that the rash is quite itchy. She has been ill recently with upper respiratory symptoms the last couple of weeks. She was seen by her her doctor and was treated with antibiotics and steroids. However, patient's last doses of medication was approximately 6 days ago. Patient states she had resolution of her symptoms including any fevers at that time. Patient otherwise does not feel unwell. She does take a blood thinner. Review of Systems 2 General: Reports: 10 or more systems reviewed and unremarkable except in HPI and below PFSH ED 2 PFSH: Medical History Malignant neoplasm of overlapping sites of right female breast Varicose vein of leg Obesity HLD (hyperlipidemia) Aortic stenosis, mild Stable Angina pectoris Status post PCI to diagonal branch. No more angina CAD (coronary artery disease), [place] coronary artery Diagonal branch for significant ostial and proximal diagonal lesion. It was treated with 2 overlapping drug-eluting stents Primary osteoarthritis of both hips Surgical History Hx of hysterectomy Hx of appendectomy Hx of right mastectomy History of total hip arthroplasty Family History Grandmother CAD (coronary artery disease) Hypertension Father CAD (coronary artery disease) Cancer Diabetes Hypertension Lung disease Mother Cancer Dementia Diabetes Hypertension Daughter Chronic kidney disease (CKD) eldest Hypertension Daughter Chronic kidney disease (CKD) third child Sister Hyperlipidemia all sisters Hypertension Lung disease Unknown Suicide maternal aunt-GSW- mid 40s Social History Smoking and tobacco/nicotine status: former use of tobacco/nicotine Quit status (tobacco/nicotine): has quit using Year quit tobacco: 2017 Second hand smoke exposure: Yes Alcohol intake: never Substance/Drug Use: never Physical Exam 2 Const: COMMON NORMALS: no acute distress, average body habitus and patient oriented x3 HENMT: COMMON NORMALS: normocephalic, atraumatic, hearing grossly normal bilaterally, Normal external nose present and moist oral mucous membranes H EAD & SCALP: normocephalic and atraumatic NOSE: Normal external nose present Eye: COMMON NORMALS: Equal, round and reactive pupils present, EOMs intact bilaterally and conjunctivae normal CONJUNCTIVA: Yes conjunctivae normal P UPIL: Yes Equal, round and reactive pupils present Neck/C-Spine: COMMON NORMALS: no JVD Lymph: LYMPHATIC: no lymphadenopathy noted Resp: COMMON NORMALS: normal respiratory effort, No retractions and No use of accessory muscles Cardio: COMMON NORMALS: no JVD, regular rate and regular rhythm RATE: r egular rate RHYTHM: regular rhythm GI: COMMON NORMALS: Normal to inspection, nondistended, normoactive bowel sounds present : COMMON NORMALS: Yes no CVA tenderness BLADDER/KIDNEY EXAM: Yes no CVA tenderness Back/Pelvis: COMMON NORMALS: no CVA tenderness and thoraco-lumbar ROM normal Extremity: COMMON NORMALS: normal to inspection, full ROM and capillary refill normal Neuro: COMMON NORMALS: patient oriented x3 Psych: COMMON NORMALS: mental status grossly normal, Normal thought process present, cooperative, normal affect and activity/motor behavior normal T HOUGHT PROCESS: Normal thought process present Skin: NARRATIVE SKIN EXAM: No obvious edema or pitting edema in the lower extremities. Patient's rash is comprised of pinpoint, bright red, raised bumps. These do not bishop. They are confluent together affecting the distal medial lower extremities bilaterally with various groupings of similar rash diffusely spread in the mid and upper portion of the lower leg. Rash does not affect above the knees and does not affect the upper extremities. Rash does not affect the feet or toes. Course 2 Vital Signs: Vital signs: Vital Signs Temperature 98.8 F 06/17/23 22:49 Pulse Rate 92 06/17/23 22:49 Respiratory Rate 14 06/17/23 22:49 Blood Pressure 132/74 06/17/23 22:49 Pulse Oximetry 95 06/17/23 22:49 Oxygen Delivery Me thod Room Air 06/17/23 18:38 MDM - Extremity (Nontraumatic) Medical Decision Making Patient presented to the emergency department today for evaluation treatment of spotty red and itchy rash affecting the lower extremities bilaterally. Patient has been ill the last couple of weeks and was on antibiotics and steroids but the last dose was approximately 6 days ago. Patient reported resolution of symptoms at that time. Patient has remained afebrile. As this does appear to be a vascular rash we proceeded on with lab work. While patient had minimally elevated inflammatory marker she showed no signs of any endorgan damage including concerns for kidney. Urinalysis was clear. After discussion with Dr. Valdez, will treat with a prednisone burst and taper. Patient does have a primary care doctor we discussed the importance of having a follow-up appointment next week for a recheck. However, strict return precautions for any change or worsening in condition were given for which she should be seen and reevaluated here in the ER. Patient verbalizes understanding and agreement to treatment plan. Differential Diagnosis Unlikely herpes zoster, gout, cellulitis, superficial thrombophlebitis, lower extremity edema or deep vein thrombosis of lower extremity Lab Data 06/17/23 21:45 06/17/23 21:45 Radiology Impressions Venous Duplex 06/17/23 18:56 IMPRESSION: No sonographic evidence of deep vein thrombosis. Laboratory Results WBC 7.51 10^3/uL (3.29-11.43) 06/17/23 21:45 RBC 3.80 10^6/uL (3.85-5.65) L 06/17/23 21:45 Hgb 11.60 g/dL (11.27-16.99) 06/17/23 21:45 Hct 35.2 % (36-47) L 06/17/23 21:45 MCV 92.6 fl (85-98) 06/17/23 21:45 MCH 30.5 pg (27-33) 06/17/23 21:45 MCHC 33.0 g/dL (30-55) 06/17/23 21:45 RDW 14.0 % (12.1-15.1) 06/17/23 21:45 Plt Count 315 10^3/cmm (157-399) 06/17/23 21:45 MPV 9.1 fL (7.4-10.4) 06/17/23 21:45 Neut % (Auto) 73.2 % 06/17/23 21:45 Lymph % (Auto) 15.6 % 06/17/23 21:45 [place] % (Auto) 5.6 % 06/17/23 21:45 Eos % (Auto) 4.4 % 06/17/23 21:45 Baso % (Auto) 0.8 % 06/17/23 21:45 Neut # (Auto) 5.50 10^3/uL (1.8-7.7) 06/17/23 21:45 Lymph # (Auto) 1.2 10^3/uL (0.8-4.8) 06/17/23 21:45 [place] # (Auto) 0.4 10^3/uL (0.2-0.9) 06/17/23 21:45 Eos # (Auto) 0.3 10^3/uL (0.0-0.8) 06/17/23 21:45 Baso # (Auto) 0.1 10^3/uL (0.0-0.1) 06/17/23 21:45 Nucleated RBC % (auto) 0 % 06/17/23 21:45 Nucleated RBCs # 0.0 /100WBC 06/17/23 21:45 ESR 15 mm/hr (0-15) 06/17/23 21:45 PT 13.80 SECONDS (12.1-14.9) 06/17/23 21:45 INR 1.03 (0.8-1.2) 06/17/23 21:45 APTT 32.3 SECONDS (23.9-36.7) 06/17/23 21:45 Sodium 138 mmol/L (136-145) 06/17/23 21:45 Potassium 4.5 mmol/L (3.5-5.1) 06/17/23 21:45 Chloride 101 mmol/L (98-107) 06/17/23 21:45 Carbon Dioxide 27 mmol/L (22-29) 06/17/23 21:45 Anion Gap 14.5 (5-19) 06/17/23 21:45 BUN 18 mg/dL (8-23) 06/17/23 21:45 Creatinine 1.1 mg/dL (0.5-0.9) H 06/17/23 21:45 GFR Calculation Not Reportable 06/17/23 21:45 Glucose 126 mg/dL (65-115) H 06/17/23 21:45 Calculated Osmolality 289 mOsm/kg (285-295) 06/17/23 21:45 Calcium 9.5 mg/dL (8.5-10.5) 06/17/23 21:45 Total Bilirubin 0.2 mg/dL (0.15-1.2) 06/17/23 21:45 AST 18 U/L (0-32) 06/17/23 21:45 ALT 14 U/L (0-33) 06/17/23 21:45 Alkaline Phosphatase 147 U/L (35-105) H 06/17/23 21:45 C-Reactive Protein 9.0 mg/L (0.0-4.9) H 06/17/23 21:45 Total Protein 6.9 g/dL (6.6-8.7) 06/17/23 21:45 Albumin 4.0 g/dL (3.5-5.2) 06/17/23 21:45 Globulin 2.9 g/dL (1.3-4.6) 06/17/23 21:45 Urine Color Dark yellow (Yellow) 06/17/23 20:23 Urine Appearance Clear (CLEAR) 06/17/23 20:23 Urine pH 5 (5-7) 06/17/23 20:23 Ur Specific [place] 1.020 (1.005-1.030) 06/17/23 20:23 Urine Protein Neg (Negative) 06/17/23 20:23 Urine Glucose (UA) Norm (Normal) 06/17/23 20:23 Urine Ketones Negative (Negative) 06/17/23 20:23 Urine Blood Neg (Negative) 06/17/23 20:23 Urine Nitrate Negative (Negative) 06/17/23 20:23 Urine Bilirubin Neg (Negative) 06/17/23 20:23 Urine Urobilinogen Norm mg/dL (Negative) 06/17/23 20:23 Ur Leukocyte Esterase Negative (Negative) 06/17/23 20:23 No radiology studies performed this visit Discharge Plan Discharge Patient Disposition: Home Clinical Impression: Cutaneous vasculitis Condition: Stable Prescriptions: New prednisone 20 mg tablet See Rx Instructions .ROUTE .COMPLEX Qty: 21 0RF Rx Instructions: Take 3 tabs daily for 3 days. Then take 2 tabs daily for 5 days. Then take one tab daily until gone. No Action aspirin 81 mg tablet,delayed release (DR/EC) 81 mg PO QAM docusate sodium [Colace] 100 mg capsule 100 mg PO BID calcium carbonate-vitamin D3 [Calcium 600 with Vitamin D3] 600 mg(1,500mg) - 500 unit capsule 1 cap PO DAILY@20 atorvastatin 80 mg tablet 80 mg PO DAILY@20 Spiriva Respimat 1.25 mcg/actuation mist 2 puff inhalation DAILY PRN hydrochlorothiazide 12.5 mg tablet 12.5 mg PO DAILY PRN (Reason: edema) Qty: 90 0RF nitroglycerin 0.4 mg tablet, sublingual 0.4 mg SUBLINGUAL Q5M PRN (Reason: chest pain) Qty: 30 2RF Rx Instructions: until response; do not exceed 3 doses per episode clopidogrel 75 mg tablet 75 mg PO DAILY@20 Qty: 90 2RF isosorbide mononitrate 30 mg tablet extended release 24 hr 15 mg PO DIRECTED Qty: 90 3RF Rx Instructions: 15mg daily; May take extra 15mg is BP <140/90 levetiracetam 1,000 mg tablet See Rx Instructions .ROUTE .COMPLEX Qty: 60 0RF Dose Instruction: TAKE 1 TABLET BY MOUTH TWICE DAILY Rx Instructions: TAKE 1 TABLET BY MOUTH TWICE DAILY albuterol sulfate 2.5 mg /3 mL (0.083 %) solution for nebulization 2.5 mg inhalation Q4H PRN (Reason: Shortness Of Breath) albuterol sulfate 90 mcg/actuation HFA aerosol inhaler 2 puff INHALATION Q4H PRN (Reason: Shortness Of Breath) fluticasone furoate-vilanterol [Breo Ellipta] 100-25 mcg/dose blister with device 1 inh INHALATION DAILY@09 ropinirole 0.5 mg tablet 0.5 mg PO BEDTIME metoprolol tartrate 25 mg tablet 12.5 mg PO BID pantoprazole 40 mg tablet,delayed release (DR/EC) 40 mg PO QAM citalopram 20 mg tablet 20 mg PO DAILY hydrocodone-acetaminophen 5-325 mg tablet 1 tab PO BID PRN (Reason: Pain) Seroquel 100 mg Tablet 100 mg PO BEDTIME Discharge Orders: Discharge ED (Routine); Ordered 06/17/23 Ordered By: Beatris Ortiz Referrals: Justin Chapman DO [Primary Care Provider] - Discharge Diet: Usual diet Discharge Activity: Resume usual activity Activity Restrictions/Additional Instructions: On examination the red rash to your lower extremities is consistent with a vasculitis. It does appear to be limited to the skin as lab work and urinalysis today revealed no signs of any acute organ dysfunction. We are providing you medication to help with your symptoms but I would still like you to have a follow-up appointment with your primary care doctor in the next few days for an overall recheck. However, if you develop new spots-especially affecting her trunk, chest, or upper extremities, you begin having symptoms of fever, abdominal pains, or any urinary symptoms we recommend you be seen and reevaluated back in the emergency department. Coding Level of Care Code ED [employer] Apprentice for Phillip Flores
[2023-06-17 20:31] LABS: Add Urine Microscopic? NO; Charge for UA Resulting for Rev
[2023-06-17 20:36] LABS: Bilirubin Urine Neg (Negative); Blood Urine Neg (Negative); Glucose Urine UA Norm (Normal); Ketones Urine Negative (Negative); Leukocyte Esterase Urine Negative (Negative); Nitrate Urine Negative (Negative); Protein Urine Neg (Negative); Urine Appearance Clear (CLEAR); Urine Color Dark Yellow (Yellow); Urobilinogen Urine Norm (Negative); pH Urine 5 (5-7)
[2023-06-17 22:00] LABS: Basophils # 0.1 10^3/uL (0.0-0.1); Basophils % 0.8 %; Eosinophils # 0.3 10^3/uL (0.0-0.8); Eosinophils % 4.4 %; Hematocrit 35.2 % (36-47); Lymphocytes # 1.2 10^3/uL (0.8-4.8); Lymphocytes % 15.6 %; Mean Corpuscular Hemoglobin 30.5 pg (27-33); Mean Corpuscular Volume 92.6 fl (85-98); Mean Platelet Volume 9.1 fL (7.4-10.4); Monocytes # 0.4 10^3/uL (0.2-0.9); Monocytes % 5.6 %; Neutrophils % 73.2 %; Nucleated Red Blood Cells % 0 %; Platelet Count 315 10^3/cmm (157-399); White Blood Count 7.51 10^3/uL (3.29-11.43)
[2023-06-17 22:05] LABS: Erythrocyte Sedimentation Rate 15 mm/hr (0-15)
[2023-06-17 22:09] LABS: INR 1.03 (0.8-1.2)
[2023-06-17 22:10] LABS: Partial Thromboplastin Time 32.3 SECONDS (23.9-36.7)
[2023-06-17 22:16] LABS: Alanine Aminotransferase 14 U/L (0-33); Alkaline Phosphatase 147 U/L (35-105); Anion Gap 14.5 (5-19); Aspartate Amino Transferase 18 U/L (0-32); Blood Urea Nitrogen 18 mg/dL (8-23); Calcium 9.5 mg/dL (8.5-10.5); Carbon Dioxide 27 mmol/L (22-29); Chloride 101 mmol/L (98-107); Globulin 2.9 g/dL (1.3-4.6); Glucose 126 mg/dL (65-115); Osmolality Calculated 289 mOsm/kg (285-295); Potassium 4.5 mmol/L (3.5-5.1); Sodium 138 mmol/L (136-145); Total Bilirubin 0.2 mg/dL (0.15-1.2); Total Protein 6.9 g/dL (6.6-8.7)
[2023-06-17] MEDS: predniSONE 20 mg Tablet 60 MG PO (22:43)
[2023-06-17 22:49] VITALS: BP 132/74; PULSE 92; RESP 14; TEMP 37.1; O2SAT 95
== END 2023-06-17 22:50 | disposition home or self-care (01) ==
PROVIDERS: Emergency Medicine; Emergency Provider Physician Assistant; PCP Electrodiagnostic Medicine
DX: L95.9 Vasculitis limited to the skin, unspecified (principal); M79.661 Pain in right lower leg; Z79.02 Long term (current) use of antithrombotics/antiplatelets; Z79.82 Long term (current) use of aspirin; Z87.891 Personal history of nicotine dependence; Z85.3 Personal history of malignant neoplasm of breast; E78.5 Hyperlipidemia, unspecified; I25.10 Atherosclerotic heart disease of native coronary artery without angina pectoris; R60.0 Localized edema
CPT/HCPCS: 36415; 80053; 81003; 85025; 85610; 85651; 85730; 86140; 93971; 99284; J7512

== ENCOUNTER → 2023-07-13 09:30 | Outpatient (BNVA) | payer MEDICARE, SELFPAY | PROVIDERS: PCP Electrodiagnostic Medicine; Visit Provider Nurse Practitioner Family | DX: I25.110 Atherosclerotic heart disease of native coronary artery with unstable angina pectoris (principal); I35.0 Nonrheumatic aortic (valve) stenosis; Z87.891 Personal history of nicotine dependence | CPT/HCPCS: 99214 ==

== ENCOUNTER 2023-08-17 13:30 | Oncology outpatient (recurring) (ONCR) | payer MEDICARE, SELFPAY ==
[2023-08-10 10:30] LABS: Basophils # 0.1 10^3/uL (0.0-0.1); Basophils % 0.8 %; Eosinophils # 0.2 10^3/uL (0.0-0.8); Eosinophils % 2.8 %; Hematocrit 37.4 % (36-47); Lymphocytes # 1.2 10^3/uL (0.8-4.8); Lymphocytes % 15.6 %; Mean Corpuscular HGB Conc 32.4 g/dL (30-55); Mean Corpuscular Hemoglobin 30.3 pg (27-33); Mean Corpuscular Volume 93.5 fl (85-98); Mean Platelet Volume 9.5 fL (7.4-10.4); Monocytes # 0.5 10^3/uL (0.2-0.9); Monocytes % 6.3 %; Neutrophils # 5.82 10^3/uL (1.8-7.7); Neutrophils % 74.2 %; Nucleated Red Blood Cells % 0 %; Platelet Count 292 10^3/cmm (157-399); Red Cell Distribution Width 14.8 % (12.1-15.1); White Blood Count 7.83 10^3/uL (3.29-11.43)
[2023-08-10 10:53] LABS: Alanine Aminotransferase 13 U/L (0-33); Albumin Level 4.2 g/dL (3.5-5.2); Alkaline Phosphatase 139 U/L (35-105); Anion Gap 14.3 (5-19); Aspartate Amino Transferase 23 U/L (0-32); Blood Urea Nitrogen 19 mg/dL (8-23); Calcium 9.4 mg/dL (8.5-10.5); Carbon Dioxide 27 mmol/L (22-29); Chloride 103 mmol/L (98-107); Globulin 2.7 g/dL (1.3-4.6); Glucose 119 mg/dL (65-115); Osmolality Calculated 293 mOsm/kg (285-295); Potassium 4.3 mmol/L (3.5-5.1); Sodium 140 mmol/L (136-145); Total Bilirubin 0.3 mg/dL (0.15-1.2); Total Protein 6.9 g/dL (6.6-8.7)
== END 2023-08-27 23:59 | disposition home or self-care (01) ==
PROVIDERS: PCP Electrodiagnostic Medicine; Visit Provider Internal Medicine Medical Oncology
DX: Z85.3 Personal history of malignant neoplasm of breast; R51.9 Headache, unspecified; Z53.9 Procedure and treatment not carried out, unspecified reason
CPT/HCPCS: 36415; 80053; 85025; 99214

== ENCOUNTER 2023-08-29 11:52 | Outpatient (CLI) | payer MEDICARE, SELFPAY ==
--- NOTE | 2023-08-29 13:30 | XR_ITS ---
WS: [email or web address] SCREENING DEXA SCAN [facility] CLINICAL INFORMATION: history of osteopenia COMPARISON: 2019 FINDINGS: The L1-L4 bone mineral density measures 1.007 g/cm2. This corresponds to a T score score of -1.4 and Z score of -0.3. Left forearm bone mineral density measures 0.67. This corresponds to a T score of -2.3 and Z score of 0.0. IMPRESSION: Osteopenia lumbar spine. Osteopenia LEFT forearm. Bone mineral density lumbar spine increased 7.1% Bone mineral density LEFT forearm increased 4.3%
== END 2023-08-29 11:53 | disposition home or self-care (01) ==
LOC: RAD 11:53
PROVIDERS: PCP Electrodiagnostic Medicine; Visit Provider Nurse Practitioner Family
DX: M85.80 Other specified disorders of bone density and structure, unspecified site (principal); Z78.0 Asymptomatic menopausal state; M85.832 Other specified disorders of bone density and structure, left forearm; M85.88 Other specified disorders of bone density and structure, other site
CPT/HCPCS: 77080

== ENCOUNTER 2023-10-16 09:48 | Outpatient (CLI) | payer MEDICARE, SELFPAY ==
--- NOTE | 2023-10-16 09:45 | US_ITS ---
WS: [id number] ULTRASOUND LEFT BREAST HISTORY: surveillance left breast mass, hx breast ca COMPARISON: 01/07/2022, 10/04/2022 and 04/11/2023 TECHNIQUE: 2-D and Doppler. No interval change in slightly complex cystic mass at 12:00, 1 cm from the nipple. Mass measures 0.4 x 0.3 cm. US/US breast LT limited* [id number] IMPRESSION: BI-RADS: 2-Benign FOLLOW-UP: See Report No interval change in the complex cyst LEFT breast since 01/07/2022. Return to a nnual diagnostic mammography.
== END 2023-10-16 09:49 | disposition home or self-care (01) ==
LOC: RAD 09:48
PROVIDERS: PCP Electrodiagnostic Medicine; Visit Provider Nurse Practitioner Family
DX: C50.811 Malignant neoplasm of overlapping sites of right female breast (principal); N60.02 Solitary cyst of left breast
CPT/HCPCS: 76642

== ENCOUNTER → 2024-01-11 15:19 | Outpatient (BNVA) | payer MEDICARE, SELFPAY | PROVIDERS: PCP Electrodiagnostic Medicine; Visit Provider Internal Medicine | DX: R07.9 Chest pain, unspecified (principal) | CPT/HCPCS: 93005 ==

== ENCOUNTER 2024-01-11 15:55 | Observation (INO) | payer MEDICARE, SELFPAY ==
[2024-01-11] VITALS (29 sets, daily range): BP systolic 131–148; BP diastolic 76–80; PULSE 67–88; RESP 15–35; TEMP 36.6–37; O2SAT 92–98; BMI 31.6
--- NOTE | 2024-01-11 16:27 | ECG_ITS ---
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 Measurements Intervals [place] Rate: 72 P: 69 NV: 177 QRS: 19 QRSD: 93 T: 31 QT: 406 QTc: 446 Interpretive Statements SINUS RHYTHM Compared to ECG 01/11/2024 15:24:11 No significant changes Electronically Signed On 01-11-2024 16:53:34 CDT by Dutch Enciso M.D. [email or web address]
[2024-01-11] MEDS: nitroglycerin 0.4 mg sublingual Tablet SUBLINGUAL (16:41)
--- NOTE | 2024-01-11 17:14 | USCV_ITS ---
Karina Leija Age: 73 Gender: F : 1950 Exam Date: 01/11/2024 18:03 Ordering Phys: Dutch Enciso M.D ([email or web address]) Technologist: MELY Exam Location: [facility] [place] Indication: chest pain, history of multiple cardiac stents. BP: 148 / 80 HR: 71 Rhythm: Sinus Technical Quality: Adequate MEASUREMENTS (Male / Female) Normal Values 2D ECHO LV Diastolic Diameter PLAX 4.0 cm 4.2 - 5.9 / 3.9 - 5.3 cm IVS Diastolic Thickness 1.2 cm 0.6 - 1.0 / 0.6 - 0.9 cm IVS Systolic Thickness 1.6 cm LVPW Diastolic Thickness 1.3 cm 0.6 - 1.0 / 0.6 - 0.9 cm LVPW Systolic Thickness 1.9 cm LVOT Diameter 2.4 cm LV Ejection Fraction 2D Teich 67.1 % LV Ejection Fraction MOD 4C 50.3 % LV Ejection Fraction MOD 2C 68.8 % LV Ejection Fraction 2C AL 70.4 % LA Diameter 4.0 cm LA Sys Volume AL 57.0 cm cubed LA Sys Volume Index AL 28.9 cm cubed/m squared Aorta at Sinotubular Diameter 3.0 cm IVC Diameter 0.9 cm M-MODE LA Ao Ratio MM 1.5 AV Cusp Separation MM 1.3 cm DOPPLER AV Peak Velocity 244.0 cm/s LVOT Peak Velocity 106.0 cm/s AV Area Cont Eq vti 2.0 cm squared AV Area Cont Eq pk 2.0 cm squared MV Peak Velocity 95.0 cm/s MV Area PHT 4.8 cm squared Mitral E to A Ratio 0.8 TV Peak Velocity 272.7 cm/s TR Peak Velocity 288.0 cm/s TR Peak Gradient 33.2 mmHg TV Peak E Velocity 50.0 cm/s Right Atrial Pressure 10.0 mmHg Pulmonary Artery Systolic Pressu 43.2 mmHg PV Peak Velocity 89.0 cm/s FINDINGS Left Ventricle Left ventricle is normal in size. LV systolic function is normal with EF of 55-60%. No regional wall motion abnormalities are seen. Grade 1 diastolic dysfunction. Right Ventricle Normal size and function. Right Atrium Normal in size Left Atrium Normal in size Mitral Valve Structurally normal mitral valve. Mild mitral regurgitation. Aortic Valve Aortic valve is thickened. Moderate aortic regurgitation. Mild aortic stenosis with ZOYA of 1.95cm2 and mean gradient of 11mmHg. Tricuspid Valve Mild tricuspid regurgitation. RVSP is 40 to 45 mmHg. This is consistent with mild pulmonary hypertension. Pulmonic Valve Mild pulmonic regurgitation Pericardium Normal Aorta Normal in size IVC Appears to be normal CONCLUSIONS LV systolic function is normal with EF of 55-60% Grade 1 diastolic dysfunction Mild mitral regurgitation Aortic valve is thickened. Moderate aortic regurgitation. Mild aortic stenosis Mild pulmonic regurgitation Mild tricuspid regurgitation Mild pulmonary hypertension Compared to prior echocardiogram from 2022, no significant changes are seen Dutch Enciso MD (Electronically Signed) Final Date: 12 January 2024 10:46 S
--- NOTE | 2024-01-11 17:16 | P.HP_ITS ---
Providers/Chief Complaint 2 Admitting Physician: Dutch Enciso M.D Primary Care Provider: Justin Chapman DO Chief Complaint: unstable ingina History of Present Illness Karina Leija is a 73 year old female with past medical history of CAD with multiple stents who has been having on and off substernal heartburn sensation for the last 3 days. Is both exertional and resting. Has noticed worsening. Similar to her discomfort when she had severe CAD and required intervention. EKG not showing acute ST-T wave changes. Also has been having dyspnea on exertion. Review of Systems 2 General: Reports: 10 or more systems reviewed and unremarkable except in HPI and below Const: Denies: fever(s) or chills Card: Reports: chest pain, palpitations, irregular heart rhythm, swelling of feet/ankles, lightheadedness, pre-syncope and dyspnea on exertion; Denies: syncope, orthopnea or leg pain with exertion Resp: Reports: dyspnea; Denies: productive cough or non-productive cough Musc: Reports: back pain; Denies: neck pain Neuro: Denies: headache(s) or dizziness Psych: Denies: anxiety, depression, suicidal ideation or homicidal ideation Clement/Lymph: Reports: easy bruising and easy bleeding Medications/Allergies Home Medications Medication Instructions Recorded Confirmed Last Taken Type aspirin 81 mg tablet,delayed 81 mg PO QAM 06/10/19 01/11/24 01/11/24 History release docusate sodium 100 mg capsule 100 mg PO BID 06/10/19 01/11/24 03/30/21 08:00 History (Colace) atorvastatin 80 mg tablet 80 mg PO DAILY@11/07/19 01/11/24 01/11/24 History calcium carbonate 600 mg-vitamin 1 cap PO DAILY@12/16/19 01/11/24 01/11/24 History D3 12.5 mcg (500 unit) capsule (Calcium 600 with Vitamin D3) albuterol sulfate 2.5 mg/3 mL 2.5 mg inhalation Q4H PRN 01/19/20 01/11/24 01/18/20 History (0.083 %) solution for nebulization Shortness Of Breath albuterol sulfate 90 mcg/actuation 2 puff inhalation Q4H PRN 01/19/20 01/11/24 06/22/20 History aerosol inhaler Shortness Of Breath fluticasone furoate 100 1 inh inhalation DAILY@09 01/19/20 01/11/24 03/30/21 History mcg-vilanterol 25 mcg/dose inhalation powder (Breo Ellipta) metoprolol tartrate 25 mg tablet 12.5 mg PO BID 03/30/21 01/11/24 01/11/24 History pantoprazole 40 mg tablet,delayed 40 mg PO QAM 03/30/21 01/11/24 01/11/24 History release ropinirole 0.5 mg tablet 0.5 mg PO BEDTIME 03/30/21 01/11/24 01/10/24 History nitroglycerin 0.4 mg sublingual 0.4 mg sublingual Q5M PRN chest 09/13/21 01/11/24 01/11/24 14:00 Rx tablet pain #30 tabs citalopram 20 mg tablet 20 mg PO DAILY 12/24/21 01/11/24 01/11/24 History hydrocodone 5 mg-acetaminophen 325 1 tab PO BID PRN Pain 08/17/22 01/11/24 Unknown History mg tablet quetiapine 100 mg tablet (Seroquel) 100 mg PO BEDTIME 08/17/22 01/11/24 01/10/24 History clopidogrel 75 mg tablet 75 mg PO DAILY@20 #90 tabs 12/16/22 01/11/24 01/11/24 Rx hydrochlorothiazide 12.5 mg tablet 12.5 mg PO DAILY PRN edema #90 tabs 01/09/23 01/11/24 Unknown Rx tiotropium bromide 1.25 2 puff inhalation DAILY PRN 01/09/23 01/11/24 Unknown History mcg/actuation mist for inhalation Shortness Of Breath (Spiriva Respimat) isosorbide mononitrate 30 mg 15 mg (1/2 x 30 mg) PO DIRECTED 02/07/23 01/11/24 01/11/24 Rx tablet,extended release 24 hr #90 tabs levetiracetam 1,000 mg tablet See Rx Instructions .Route 05/30/23 01/11/24 01/11/24 Rx .COMPLEX #60 tabs ascorbic acid (vitamin C) 500 mg 250 mg PO DAILY 01/11/24 01/11/24 01/11/24 History tablet cholecalciferol (vitamin D3) 25 25 mcg PO DAILY 01/11/24 01/11/24 01/11/24 History mcg (1,000 unit) capsule [id number] 4 mg-folic acid See Rx Instructions .Route .COMPLEX 01/11/24 01/11/24 01/11/24 History 200 mcg-vit K 25 mcg-lutein tablet (Centrum Minis Women 50 Plus) sucralfate 1 gram tablet 1 g PO TID PRN Stomach Upset 01/11/24 01/11/24 Unknown History Allergies Allergy/AdvReac Type Severity Reaction Status Date / Time No Known Allergies Allergy Verified 01/11/24 14:40 PFSH Acute 2 PFSH: Medical History Malignant neoplasm of overlapping sites of right female breast Varicose vein of leg Obesity HLD (hyperlipidemia) Aortic stenosis, mild Stable Angina pectoris Status post PCI to diagonal branch. No more angina CAD (coronary artery disease), [place] coronary artery Diagonal branch for significant ostial and proximal diagonal lesion. It was treated with 2 overlapping drug-eluting stents Primary osteoarthritis of both hips Surgical History Hx of hysterectomy Hx of appendectomy Hx of right mastectomy History of total hip arthroplasty Family History Grandmother CAD (coronary artery disease) Hypertension Father CAD (coronary artery disease) Cancer Diabetes Hypertension Lung disease Mother Cancer Dementia Diabetes Hypertension Daughter Chronic kidney disease (CKD) eldest Hypertension Daughter Chronic kidney disease (CKD) third child Sister Hyperlipidemia all sisters Hypertension Lung disease Unknown Suicide maternal aunt-GSW- mid 40s Social History Smoking and tobacco/nicotine status: former use of tobacco/nicotine Quit status (tobacco/nicotine): has quit using Year quit tobacco: 2017 Second hand smoke exposure: Yes Alcohol intake: never Substance/Drug Use: never Vitals/I&O/Wt Last Vital Signs O2 Del Method Room Air 01/11/24 16:22 Weight last 48 hrs Weight 184 lb 3 oz Physical Exam 2 Narrative: GENERAL: Patient is alert, awake and oriented x3. [] NECK: No jugular vein distension. [] HEENT: No cyanosis. No icterus. No pallor. [] HEART: Regular S1 and S2. No murmur, rub or gallop. [] LUNGS: Clear to auscultate bilaterally. [] CENTRAL NERVOUS SYSTEM: Grossly nonfocal. [] EXTREMITIES: Lower extremities with 1+ edema bilaterally Data 01/12/24 03:51 01/12/24 03:51 A&P Assessment and plan (1) Worsening angina: (2) Aortic stenosis, mild: (3) CAD (coronary artery disease), [place] coronary artery: Qualifiers: [place] vs. transplanted heart: [place] heart Associated angina: with unstable angina Qualified Code(s): I25.110 - Atherosclerotic heart disease of [place] coronary artery with unstable angina pectoris Plan Patient has presented with chest pain symptoms that are concerning for unstable angina. Feels similar to when she had prior interventions. N.p.o. after midnight. Will trend troponins. EKG not showing acute ST changes. Anticoagulation with Lovenox. Continue aspirin. Plavix loaded. Plan for coronary angiogram with possible PCI tomorrow. Risks and benefits of the procedure were discussed. She understands these and wants to proceed. We will obtain echocardiogram We will consult medicine team for evaluation and treatment of medical non- cardiac issues. Appreciate recommendations. Attestations 2 Medical Necessity Statement*: Care expected to cross 2 midnights. Patient admitted with possible unstable angina with plans for coronary angiogram with possible PCI. Coding Level of Care Code Acute Code for Chg Fwd Diagnoses Worsening angina I20.0 Aortic stenosis, mild I35.0 Coronary artery disease involving [place] coronary artery of [place] heart with unstable angina pectoris I25.110 [place] vs. transplanted heart: [place] heart Associated angina: with unstable angina
--- NOTE | 2024-01-11 17:16 | PC.NURSE ---
Patient is a direct admit from Dr. Enciso's office. Arrived on the floor at approximately 1600 via wheelchair/ At that time, patient reported a 5/[address] Enciso notified and instructed nurse to give sublingual nitro 0.4. 0.4 nitro given and patient assessed 5 min later where she reported feeling better and a pain level of 3/10. I asked her if she wanted another nitro and she declined. Vitals are currently within normal limits.
[2024-01-11 18:03] LABS: Basophils # 0.1 10^3/uL (0.0-0.1); Basophils % 0.7 %; Eosinophils # 0.1 10^3/uL (0.0-0.8); Eosinophils % 1.3 %; Hematocrit 37.5 % (36-47); Lymphocytes # 1.3 10^3/uL (0.8-4.8); Lymphocytes % 17.5 %; Mean Corpuscular HGB Conc 33.6 g/dL (30-55); Mean Corpuscular Volume 92.4 fl (85-98); Mean Platelet Volume 8.8 fL (7.4-10.4); Monocytes # 0.4 10^3/uL (0.2-0.9); Monocytes % 5.4 %; Neutrophils # 5.55 10^3/uL (1.8-7.7); Neutrophils % 74.8 %; Nucleated Red Blood Cells % 0 %; Platelet Count 344 10^3/cmm (157-399); Red Blood Count 4.06 10^6/uL (3.85-5.65); Red Cell Distribution Width 14.4 % (12.1-15.1); White Blood Count 7.42 10^3/uL (3.29-11.43)
[2024-01-11] MEDS: sodium chloride 0.9% 1,000 ML 75 ML IV (18:12)
[2024-01-11] MEDS: enoxaparin 80 mg/0.8 mL Syringe SUBCUT (18:12)
--- NOTE | 2024-01-11 18:22 | P.CONIM_ITS ---
Providers/Reason For Consult 2 Consulting Physician/Specialty*: Cardiology Reason for Consult*: Medical management Attending Physician: Dutch Enciso M.D Primary Care Provider: Justin Chapman DO History of Present Illness History of Present Illness Pleasant 73-year-old lady with history of coronary disease, stenting, she is directly admitted from cardiology clinic after presenting there with bothersome chest pressure symptoms for about 3 days, with some heartburn sensation, describing the symptoms to be similar to the ones she has had previously with a heart attack at which point she required intervention. She has a history of breast cancer, obesity, mild to moderate aortic stenosis, COPD, epilepsy, functional seizure-like events, psychiatric history among other medical problems. She reports she has also had some cough and some mild chills. Has not had a fever. No nausea vomiting or diarrhea. Not bringing up any phlegm no hemoptysis. Mild lower extremity edema. Review of Systems 2 Const: Reports: chills; Denies: fever(s), body aches or malaise ENMT: Denies: throat pain Card: Reports: chest pain and edema; Denies: pre-syncope or dyspnea on exertion Resp: Reports: non-productive cough; Denies: dyspnea, productive cough, change in phlegm color or hemoptysis GI: Denies: abdominal pain, nausea, vomiting, diarrhea, constipation, hematochezia or melena : Denies: flank pain, urinary frequency or hematuria Musc: Denies: back pain, joint swelling or joint redness Skin/Breast: Denies: rash or new lesions Neuro: Denies: headache(s) Medications/Allergies Home Medications Medication Instructions Recorded Confirmed Last Taken Type aspirin 81 mg tablet,delayed 81 mg PO QAM 06/10/19 01/11/24 01/11/24 History release docusate sodium 100 mg capsule 100 mg PO BID 06/10/19 01/11/24 03/30/21 08:00 History (Colace) atorvastatin 80 mg tablet 80 mg PO DAILY@11/07/19 01/11/24 01/11/24 History calcium carbonate 600 mg-vitamin 1 cap PO DAILY@12/16/19 01/11/24 01/11/24 History D3 12.5 mcg (500 unit) capsule (Calcium 600 with Vitamin D3) albuterol sulfate 2.5 mg/3 mL 2.5 mg inhalation Q4H PRN 01/19/20 08/17/23 01/18/20 History (0.083 %) solution for nebulization Shortness Of Breath albuterol sulfate 90 mcg/actuation 2 puff inhalation Q4H PRN 01/19/20 01/11/24 06/22/20 History aerosol inhaler Shortness Of Breath fluticasone furoate 100 1 inh inhalation DAILY@09 01/19/20 01/11/24 03/30/21 History mcg-vilanterol 25 mcg/dose inhalation powder (Breo Ellipta) metoprolol tartrate 25 mg tablet 12.5 mg PO BID 03/30/21 01/11/24 03/30/21 08:00 History pantoprazole 40 mg tablet,delayed 40 mg PO QAM 03/30/21 01/11/24 03/30/21 08:00 History release ropinirole 0.5 mg tablet 0.5 mg PO BEDTIME 03/30/21 01/11/24 03/29/21 History nitroglycerin 0.4 mg sublingual 0.4 mg sublingual Q5M PRN chest 09/13/21 01/11/24 Unknown Rx tablet pain #30 tabs citalopram 20 mg tablet 20 mg PO DAILY 12/24/21 01/11/24 01/11/24 History hydrocodone 5 mg-acetaminophen 325 1 tab PO BID PRN Pain 08/17/22 01/11/24 Unknown History mg tablet quetiapine 100 mg tablet (Seroquel) 100 mg PO BEDTIME 08/17/22 01/11/24 Unknown History clopidogrel 75 mg tablet 75 mg PO DAILY@20 #90 tabs 12/16/22 01/11/24 01/11/24 Rx hydrochlorothiazide 12.5 mg tablet 12.5 mg PO DAILY PRN edema #90 tabs 01/09/23 01/11/24 Unknown Rx tiotropium bromide 1.25 2 puff inhalation DAILY PRN 01/09/23 01/11/24 Unknown History mcg/actuation mist for inhalation (Spiriva Respimat) isosorbide mononitrate 30 mg 15 mg (1/2 x 30 mg) PO DIRECTED 02/07/23 01/11/24 Unknown Rx tablet,extended release 24 hr #90 tabs levetiracetam 1,000 mg tablet See Rx Instructions .Route 05/30/23 01/11/24 Unknown Rx .COMPLEX #60 tabs ascorbic acid (vitamin C) 500 mg 250 mg PO DAILY 01/11/24 01/11/24 01/11/24 History tablet cholecalciferol (vitamin D3) 25 25 mcg PO DAILY 01/11/24 01/11/24 01/11/24 History mcg (1,000 unit) capsule [id number] 4 mg-folic acid tab PO 01/11/24 01/11/24 Unknown History 200 mcg-vit K 25 mcg-lutein tablet (Centrum Minis Women 50 Plus) sucralfate 1 gram tablet 1 g PO TID PRN 01/11/24 01/11/24 Unknown History Allergies Allergy/AdvReac Type Severity Reaction Status Date / Time No Known Allergies Allergy Verified 01/11/24 14:40 Current Medications Generic Name Dose Route Start Last Admin Trade Name Freq PRN Reason Stop Dose Admin Sodium Chloride 1,000 mls @ 75 mls/hr 01/11/24 17:15 01/11/24 18:12 Sodium Chloride 0.9% IV 75 mls/hr .[id number] Administration Nitroglycerin 0.4 mg 01/11/24 16:22 01/11/24 16:41 Nitroglycerin 0.4 Mg Sublingual Tablet SUBLINGUAL 0.4 mg Q5M PRN Administration CHEST PAIN PFSH Acute 2 PFSH: Medical History Malignant neoplasm of overlapping sites of right female breast Varicose vein of leg Obesity HLD (hyperlipidemia) Aortic stenosis, mild Stable Angina pectoris Status post PCI to diagonal branch. No more angina CAD (coronary artery disease), [place] coronary artery Diagonal branch for significant ostial and proximal diagonal lesion. It was treated with 2 overlapping drug-eluting stents Primary osteoarthritis of both hips Surgical History Hx of hysterectomy Hx of appendectomy Hx of right mastectomy History of total hip arthroplasty Family History Grandmother CAD (coronary artery disease) Hypertension Father CAD (coronary artery disease) Cancer Diabetes Hypertension Lung disease Mother Cancer Dementia Diabetes Hypertension Daughter Chronic kidney disease (CKD) eldest Hypertension Daughter Chronic kidney disease (CKD) third child Sister Hyperlipidemia all sisters Hypertension Lung disease Unknown Suicide maternal aunt-GSW- mid 40s Social History Smoking and tobacco/nicotine status: former use of tobacco/nicotine Quit status (tobacco/nicotine): has quit using Year quit tobacco: 2017 Second hand smoke exposure: Yes Alcohol intake: never Substance/Drug Use: never Vitals/I&O/Wt Last Vital Signs Pulse 72 01/11/24 17:23 O2 Del Method Room Air 01/11/24 17:24 Weight last 48 hrs Weight 83.546 kg Weight 83.546 kg Physical Exam 2 Const: COMMON NORMALS: patient oriented x3 and alert GENERAL APPEARANCE: c ooperative ORIENTATION/CONSCIOUSNESS: Yes awake HENMT: COMMON NORMALS: oropharynx normal Neck/C-Spine: COMMON NORMALS: no JVD Resp: COMMON NORMALS: normal respiratory effort and clear to auscultation bilaterally AUSCULTATION: clear to auscultation bilaterally Cardio: COMMON NORMALS: no JVD, regular rhythm, S1 normal heart sound present, S2 normal heart sound present and No murmurs present (Cardio) RHYTHM: regular rhythm HEART SOUNDS: S1 normal heart sound present and S2 normal heart sound present GI: COMMON NORMALS: Normal to inspection, nondistended, normoactive bowel sounds present, Soft to palpation and non-tender PALPATION: Yes Soft to palpation Extremity: COMMON NORMALS: no joint enlargement GENERAL: Yes edema (Trace) Neuro: COMMON NORMALS: patient oriented x3 and moves all extremities S ENSORIUM/ORIENTATION: Yes alert Skin: COMMON NORMALS: no rashes or lesions noted GENERAL SKIN EXAM: no rashes or lesions noted Data 01/11/24 17:52 01/11/24 17:52 A&P Assessment and plan (1) Worsening angina: Persistent chest pressure symptoms and heartburn similar to prior symptoms at which time she required cardiac intervention for significant coronary disease. Symptoms without any improvement over the last 3 days. Possible unstable angina. Reviewed vitals, CBC, EKG, troponin, BNP is pending. Reviewed cardiology note from office. 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 She received a dose of Lovenox, continue aspirin, Plavix. Beta-raisa, statin. Obtain chest x-ray, D-dimer. She endorses some dry cough, some chills, will obtain respiratory viral panel. Continue Protonix, will increase to twice daily. Additional cardiac assessment underway, monitor on telemetry with risk of arrhythmia. Undergoing TTE. Given history, symptoms, cardiovascular risk, likely cardiac angiographic evaluation in the morning. With risk of contrast- induced nephropathy. Receiving IV fluid hydration, monitor for risk of fluid overload with IV fluids. Monitor oxygenation. Nitroglycerin as needed, morphine IV as needed for severe breakthrough. Plan Mild to moderate aortic stenosis, Pending reassessment by CT COPD, Not in exacerbation. Albuterol nebulization. Inhaled steroid. Epilepsy, Continue Keppra Functional seizure-like events, Psychiatric history: Hold dose of citalopram for now, reassess blood counts with increased risk of bleeding with dual antiplatelet with Plavix loading, anticoagulation with Lovenox. Former smoker: States quit cold turkey Hx breast cancer, Status post adjuvant chemo, excision in remission as of 2021. Obesity, Degenerative joint disease Other medical problems Consult Attestations 2 Medical Necessity Statement: Being placed in observation for additional assessment and management of possible unstable angina in a lady with known coronary disease, prior stenting, multiple underlying comorbidities as above. Diagnoses Worsening angina I20.0
[2024-01-11 18:24] LABS: Troponin(5th) Baseline < 6 ng/L (0-10)
[2024-01-11 18:27] LABS: Blood Urea Nitrogen 12 mg/dL (8-23); Calcium 9.2 mg/dL (8.5-10.5); Carbon Dioxide 26 mmol/L (22-29); Chloride 94 mmol/L (98-107); Creatinine Clr Calc Pharmacy 50.8288; Glucose 109 mg/dL (65-115); Osmolality Calculated 278 mOsm/kg (285-295); Sodium 134 mmol/L (136-145)
[2024-01-11 18:35] LABS: Anion Gap 17.8 (5-19); Potassium 3.8 mmol/L (3.5-5.1)
--- NOTE | 2024-01-11 18:54 | XRR_ITS ---
PROCEDURE INFORMATION: Exam: XR Chest Exam date and time: 01/11/2024 8:27 PM Age: 73 years old Clinical indication: Pain; Cough; Chest pressure; Additional info: Chest pressure, cough, chills TECHNIQUE: Imaging protocol: Radiologic exam of the chest. Views: 1 view. COMPARISON: CT angio chest PE protcl [id number] 08/17/2022 11:21 AM FINDINGS: Lungs: Central vascular prominence with bilateral hazy and interstitial opacities likely representing pulmonary edema. Pleural spaces: Unremarkable. No pleural effusion. No pneumothorax. Heart/Mediastinum: Cardiomegaly. Bones/joints: Unremarkable. XR/XR chest 1V portable [id number] IMPRESSION: Central vascular prominence with bilateral hazy and interstitial opacities likely representing pulmonary edema.
[2024-01-11] MEDS: ropinirole 1 mg Tablet 0.5 MG PO (20:17)
[2024-01-11] MEDS: pantoprazole DR 40 mg Tablet PO (20:17)
[2024-01-11] MEDS: atorvastatin 40 mg Tablet 80 MG PO (20:17)
[2024-01-11 21:00] LABS: Troponin 5 2HR Delta 0.00001 ABS# (0-10)
[2024-01-11] MEDS: albuterol 2.5 mg/3 mL Neb INHALATION (21:24)
[2024-01-11] MEDS: budesonide 0.5 mg/2 mL Neb 0.25 MG INHALATION (21:25)
--- NOTE | 2024-01-11 21:39 | PC.NURSE ---
Messaged regarding results of patients chest xray, the patient sounds congested. The patient currently has IV fluids running at 75ml/hr. ordered to stop IV fluids.
[2024-01-11 22:25] LABS: Adenovirus Not Detected (NOT DETECT); Chlamydia Pneumoniae Not Detected (NOT DETECT); Coronavirus 229E,HKU1,NL63,OC4 Not Detected (NOT DETECT); Human Metapneumovirus Not Detected (NOT DETECT); Human Rhinovirus/Enterovirus Not Detected (NOT DETECT); Influenza A Not Detected (NOT DETECT); Influenza A H1 Not Detected (NOT DETECT); Influenza A H1-2009 Not Detected (NOT DETECT); Influenza A H3 Not Detected (NOT DETECT); Influenza B Not Detected (NOT DETECT); Mycoplasma Pneumoniae Not Detected (NOT DETECT); Parainfluenza Virus Type 1 Not Detected (NOT DETECT); Parainfluenza Virus Type 2 Not Detected (NOT DETECT); Parainfluenza Virus Type 3 Not Detected (NOT DETECT); Parainfluenza Virus Type 4 Not Detected (NOT DETECT); Respiratory Syncytial Virus A Not Detected (NOT DETECT); Respiratory Syncytial Virus B Not Detected (NOT DETECT); SARS-COV-2 Not Detected (NOT DETECT)
[2024-01-12] VITALS (14 sets, daily range): BP systolic 121–135; BP diastolic 62–77; PULSE 68–89; RESP 15–27; TEMP 36.4–36.9; O2SAT 90–95
[2024-01-12] MEDS: albuterol 2.5 mg/3 mL Neb INHALATION ×3 (00:25→11:06)
[2024-01-12 00:48] LABS: Troponin 5 6HR Delta 0 ng/L (0-12)
[2024-01-12 04:32] LABS: Basophils # 0.1 10^3/uL (0.0-0.1); Basophils % 0.9 %; Eosinophils # 0.1 10^3/uL (0.0-0.8); Eosinophils % 1.4 %; Hematocrit 34.6 % (36-47); Lymphocytes # 1.4 10^3/uL (0.8-4.8); Lymphocytes % 20.6 %; Mean Corpuscular HGB Conc 33.5 g/dL (30-55); Mean Corpuscular Hemoglobin 31.1 pg (27-33); Mean Corpuscular Volume 92.8 fl (85-98); Mean Platelet Volume 8.8 fL (7.4-10.4); Monocytes # 0.4 10^3/uL (0.2-0.9); Monocytes % 6.1 %; Neutrophils # 4.89 10^3/uL (1.8-7.7); Neutrophils % 70.9 %; Nucleated Red Blood Cells % 0 %; Platelet Count 310 10^3/cmm (157-399); Red Blood Count 3.73 10^6/uL (3.85-5.65); Red Cell Distribution Width 14.3 % (12.1-15.1)
[2024-01-12 04:45] LABS: Anion Gap 16.9 (5-19); Blood Urea Nitrogen 13 mg/dL (8-23); Calcium 8.5 mg/dL (8.5-10.5); Carbon Dioxide 25 mmol/L (22-29); Chloride 98 mmol/L (98-107); Creatinine Clr Calc Pharmacy 46.2348; Glucose 103 mg/dL (65-115); Osmolality Calculated 282 mOsm/kg (285-295); Potassium 3.9 mmol/L (3.5-5.1); Sodium 136 mmol/L (136-145)
[2024-01-12] MEDS: diphenhydrAMINE 50 mg Capsule PO (05:56)
[2024-01-12] MEDS: sodium chloride 0.9% 1,000 ML 50 ML IV (05:58)
[2024-01-12] MEDS: aspirin 325 mg Tablet PO (05:58)
[2024-01-12] MEDS: clopidogrel 300 mg Tablet 600 MG PO (05:58)
--- NOTE | 2024-01-12 06:56 | XACV_ITS ---
Exam Room: [facility] Ht: 163 cm Wt: 83 kg BSA: 1.97 m2 Gender: Female : 1950 Any Known Allergies: No known allergies Exam Priority: Routine Procedure(s): Procedure Description: Diagnostic procedure Procedure Description: Coronary Angiography Diagnostic Cath Status: Urgent Diagnostic Findings * INDICATION: 73 year old female with past medical history of CAD with multiple stents who has been having on and off substernal heartburn sensation for the last 3 days. Is both exertional and resting. Has noticed worsening. Similar to her discomfort when she had severe CAD and required intervention. * Left Main has no significant disease. * Circumflex has mild luminal irregularities. * Proximal Left Anterior Descending: minimal 30% stenosis, ROSA: 3 flow. Patent prior proximal to mid LAD stent. Patent stent in diagonal artery. * Right Coronary Artery has no disease. * Coronary angiography shows right dominance. Conclusions 1. Mild proximal LAD stenosis. Otherwise nonobstructive CAD. Patent prior LAD and diagonal artery stents. . Recommendations * Aggressive risk factor modification. * Outpatient cardiology follow up in 2-4 weeks. Interventional RX Recommendation: medical therapy and/or counseling Diagnostic RX Recommendation: medical therapy and/or counseling Anticoagulation: Heparin Pressures Phase:Rest AO : 110 / 82 ( 96 ) @ 8:35:00 AM Clinical Evaluation EBL: 5mL-10mL Procedural Details Procedure Consent Obtained. Pre-Procedure Time Out. Identified patient by full name and date of as verbalized by the patient/guarantor. Does the consent match the physician's order: Yes. Accurate & Complete Informed Consent: Yes. Inpatient/Outpatient History & Physical on Chart: Yes. If H&P is completed, is and addenduem needed: No; If yes, is the addendum complete: N/A. Visualize and Verify Site with Patient/Guarantor: N/A. Relevant Radiology Images available: Yes. Pre-op teaching completed and patient verbalized understanding. The risks, benefits, and alternatives of sedation and/or procedure were discussed by physician. The patient agrees to continue. Procedure started. Current Diagnosis : Chest Pain. [facility] Clinical Fraility Score: 4: Vulnerable. 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 Chest Pain Symptom Assessment: Atypical Angina. Current diagnosis: Chest Pain. PERRLA. Strong, equal hand video effects editor bilaterally. Lungs clear x 5 lobes. IV Site on Arrival: 20 gauge in the left anticubital. IV Fluids: 0.9% NaCl at KVO. 0 mL infused prior to entry level lab technician. Oxygen started at 2liters/min via nasal canula. right groin was prepped with chloroprep then draped in the usual sterile fashion. right radial was prepped with chloroprep then draped in the usual sterile fashion. Physician notified. Baseline sample Acquired. HR: 91 BPM. Physician arrived. Lidocaine 1% infiltrated to the right radial. Arterial access obtained. A 5 cro[place] TIG catheter in over wire. Multiple views taken of right coronary artery. Catheter redirected to the LCA. Multiple views taken of left coronary artery. Catheter removed over the exchange wire. A 5 [place] Angled Pig catheter in over wire. Catheter removed over the exchange wire. A TR Band was successful obtaining hemostatsis at the Right Radial artery insertion site. Physician scrubbed in. Immediate Pre-Procedure Time Out. Correct Patient: Yes; Correct Procedure: Yes; Correct Site: Yes; Correct Patient Position: Yes; Correct Supplies: Yes; Dried Flammable Prep: Yes; Blood Products Available: N/A;. PERRLA. Strong, equal hand video effects editor bilaterally. No VTE prophylaxis required. Medication's Wasted: Lidocaine 1% = 18 mL. Medication's Wasted: Nitro = 49.8 mcg. Medication's Wasted: Heparin = 1000 units. Vital chart was stopped. Total IV fluids: 50 mL. Post-op diagnosis: Non-obstructive CAD. Complications: None. Estimated blood loss: 5mL-10mL. Responsiveness - Normal response to verbal stimuli; alert and oriented, PERRLA. Airway - Unaffected, no intervention required; spontaneous ventilation. Circulation: W/N/L, pulses unchanged. Nausea/Vomiting: No. Procedure completed. Patient transferred by bed to CPRU. Access Site Site: Right Radial artery Sheath Size: 6 Fr Hemostasis Method: TR Band Hemostasis Success: Successful Procedure Medications Start: 7:18 AM Stop: 7:18 AM Medication: Fentanyl Amount: 50 mcg Route: I.V. Start: 7:26 AM Stop: 7:26 AM Medication: Versed Amount: 1 mg Route: I.V. Start: 7:29 AM Stop: 7:29 AM Medication: Nitrogylcerin Amount: 200 mcg Route: I.A. Start: 7:31 AM Stop: 7:31 AM Medication: Heparin Amount: 5000 units Route: I.V. Start: 7:35 AM Stop: 7:35 AM Medication: Versed Amount: 1 mg Route: I.V. Start: 7:35 AM Stop: 7:35 AM Medication: Fentanyl Amount: 50 mcg Route: I.V. I, the attending physician, have reviewed and verified all procedure medications. Yes, all medications given per verbal order History/Risk Factors Hypertension: No Dyslipidemia: Yes Peripheral Arterial Disease (PAD): No Myocardial Infarction (MO): No Obesity: No Renal Disease: No Tobacco Use: Former Prior Interventions PCI: Yes CABG: No Valve Surgery: No Date of PCI: 07/02/2019 Report Signatures Finalized by Dutch Enciso MD on 01/21/2024 09:47 AM
--- NOTE | 2024-01-12 07:23 | W.PM.OPSUD ---
Surgery/Procedure H&P Update DATE OF PROCEDURE: January 12, 2024 DATE H&P PERFORMED: 01/11/24 H&P UPDATE INFORMATION: I have reviewed H&P completed within last 30 days, I have examined patient prior to procedure and No changes to prior documentation PREOP DIAGNOSIS: Unstable angina PRIMARY INDICATION FOR PROCEDURE: Unstable angina PLANNED PROCEDURE: Left heart cath with possible percutaneous coronary intervention PATIENT REASSESSED PRIOR TO SEDATION, WITH NO CHANGE NOTED: Yes PHYSICAL EXAM: alert, oriented x 3, clear to auscultation bilaterally and regular rate & rhythm AIRWAY EVAL/ANESTHESIA PLAN: normal airway, ASA III, Local Anesthesia, Risks, benefits & alternatives of sedation and/or procedure discussed and Patient agrees to continue as planned ADDITIONAL INFORMATION: Moderate sedation
[2024-01-12 08:45] LABS: NT Pro B Type Natriuretic Pept 448 pg/mL (0-450)
--- NOTE | 2024-01-12 09:03 | PC.NURSE ---
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 denies any chest pain or discomfort. tr band intact on right wrist. no hematoma, swelling or bleeding. 12 ml of air in tr band. educated pt on act. restrictions to her right wrist and arm. call light provided.
[2024-01-12] MEDS: metoprolol tartrate 25 mg Tablet 12.5 MG PO (09:19)
[2024-01-12] MEDS: pantoprazole DR 40 mg Tablet PO (09:20)
--- NOTE | 2024-01-12 09:37 | USR_ITS ---
PROCEDURE INFORMATION: Exam: US Duplex Lower Extremity Veins, Bilateral Exam date and time: 01/12/2024 1:22 PM Age: 73 years old Clinical indication: Screening exam; Additional info: Assess for dvt TECHNIQUE: Imaging protocol: Real-time duplex ultrasound of the bilateral extremities with 2-D panda scale, color Doppler flow and spectral waveform analysis including responses to compression and other maneuvers (when performed) with image documentation. Complete exam focused on the lower extremity veins. COMPARISON: [place] [id number] 06/17/2023 7:27 PM FINDINGS: Right deep veins: Unremarkable. The common femoral, femoral, proximal profunda femoral and popliteal veins are patent without thrombus. Normal Doppler waveforms. Normal compressibility and/or augmentation response. Left deep veins: Unremarkable. The common femoral, femoral, proximal profunda femoral and popliteal veins are patent without thrombus. Normal Doppler waveforms. Normal compressibility and/or augmentation response. Superficial veins: Greater saphenous veins at the saphenofemoral junctions are patent bilaterally without thrombus. Soft tissues: Unremarkable. US/[place] [id number] IMPRESSION: No evidence of deep vein thrombosis.
[2024-01-12] MEDS: levETIRAcetam 500 mg Tablet 1000 MG PO (10:29)
--- NOTE | 2024-01-12 11:51 | CT_ITS ---
WS: [id number] CT CHEST ANGIOGRAPHY WITH REFORMATS HISTORY: assess for PE TECHNIQUE: Contiguous axial images are obtained through the chest during arterial injection of intrav enous contrast. Images are reconstructed to evaluate the pulmonary arteries. MIP imaging also reviewe d. All CT scans at [facility] use at least one of these dose optimization techniques: automat ed exposure control; mA and/or kV adjustment per patient size (includes targeted exams where dose is matched to clinical indication); or iterative reconstruction. CONTRAST: Omnipaque 350; 100 mL IV. DLP: 345.62 mGy.cm COMPARISON: 08/17/2022 Adequate opacification of the pulmonary arteries. No central pulmonary emboli. Focal occlusive pulmon leonarda emboli in a subsegmental branch of the RIGHT upper lobe. Normal size main pulmonary artery. No RI GHT heart strain. Heart is slightly enlarged. No pericardial effusion. Mild atherosclerosis aorta. No aneurysm. Mild chronic interstitial thickening throughout both lungs. No mass or nodule. No pneumonia. Prior RIGHT mastectomy. Small hiatal hernia. Hepatic steatosis. No adrenal mass. CT/CT angio chest PE protcl [id number] IMPRESSION: 1. Age-indeterminate occlusive RIGHT upper lobe subsegmental emboli. 2. No central pulmonary emboli. 3. No RIGHT heart strain. 4. Mild prominence of the interstitium. There may be a small component of flui d overload. 5. Prior RIGHT mastectomy.
--- NOTE | 2024-01-12 12:10 | PC.SOCIAL ---
IMM UPATED IMM dated and initialed and placed in chart and copy given to patient
[2024-01-12] MEDS: iohexol 350 mg/mL 500 mL Btl (per mL) IV (13:00)
--- NOTE | 2024-01-12 13:39 | P.PN_ITS ---
Subjective 2 Subjective: She is doing better today, but still with some dry cough. Chest pressure has abated. Vitals/I&O/Wt Last Vital Signs Temp 97.5 F L 01/12/24 11:58 Pulse 76 01/12/24 11:58 Resp 22 H 01/12/24 11:58 BP 135/68 01/12/24 11:58 Pulse Ox 91 01/12/24 11:58 O2 Del Method Room Air 01/12/24 11:58 01/11/24 01/12/24 01/12/24 22:59 06:59 14:59 Intake Total 258.75 / 258.75 0 / 258.75 460 / 460 Balance 258.75 / 258.75 0 / 258.75 460 / 460 Weight last 48 hrs Weight 83.642 kg Weight 83.546 kg Weight 83.546 kg Physical Exam 2 Const: COMMON NORMALS: patient oriented x3 and alert GENERAL APPEARANCE: c ooperative ORIENTATION/CONSCIOUSNESS: Yes awake HENMT: COMMON NORMALS: oropharynx normal Neck/C-Spine: COMMON NORMALS: no JVD Resp: COMMON NORMALS: normal respiratory effort and clear to auscultation bilaterally AUSCULTATION: clear to auscultation bilaterally Cardio: COMMON NORMALS: no JVD, regular rhythm, S1 normal heart sound present, S2 normal heart sound present and No murmurs present (Cardio) RHYTHM: regular rhythm HEART SOUNDS: S1 normal heart sound present and S2 normal heart sound present GI: COMMON NORMALS: Normal to inspection, nondistended, normoactive bowel sounds present, Soft to palpation and non-tender PALPATION: Yes Soft to palpation Extremity: COMMON NORMALS: no joint enlargement GENERAL: Yes edema (Trace) Neuro: COMMON NORMALS: patient oriented x3 and moves all extremities S ENSORIUM/ORIENTATION: Yes alert Skin: COMMON NORMALS: no rashes or lesions noted GENERAL SKIN EXAM: no rashes or lesions noted Data 01/12/24 03:51 01/12/24 03:51 A&P Assessment and plan (1) Worsening angina: Reviewed vitals, CBC, BMP, NT proBNP. Echocardiogram. Discussed with cardiology, nursing, manager rn case. She underwent coronary angiography which did not reveal coronary obstruction. We discussed with cardiology and with her regarding elevated D-dimer. Venous duplex of lower extremities obtained, and negative. We discussed there is a shortage of VQ scan medium, otherwise discussed risk of kidney injury with CTA. Cardiology used a light load of contrast dye for the coronary angiogram, she is agreeable and CT angiogram chest is obtained with finding of age-indeterminate occlusive right upper lobe subsegmental emboli, discussed findings with cardiology and with her, and she is started on Eliquis and continued on aspirin. She otherwise has been saturating well on room air, without hemodynamic compromise or tachycardia. Does not require oxygen on home O2 evaluation. Plan PE: Finding of new PE as above. Starting anticoagulation. Without obvious trigger. Mild to moderate aortic stenosis, moderate regurgitation, mild stenosis noted on repeat TTE. COPD, Not in exacerbation. Albuterol nebulization. Inhaled steroid. Epilepsy, Continue Keppra Functional seizure-like events, Psychiatric history: Hold dose of citalopram for now, reassess blood counts with increased risk of bleeding with dual antiplatelet with Plavix loading, anticoagulation with Lovenox. Former smoker: States quit cold turkey Hx breast cancer, Status post adjuvant chemo, excision in remission as of 2021. Obesity, Degenerative joint disease Other medical problems Attestations 2 Medical Necessity Statement*: Returning home. and High MDM includes amount and/or complexity of data reviewed/ordered [ resulted lab(s)/test(s), ordered lab(s)/test(s) and other healthcare professional discussion] and described risk of complication, morbidity or mortality of management as documented Diagnoses Worsening angina I20.0
--- NOTE | 2024-01-12 13:47 | PM.DCS ---
Discharge Providers Date of Admission: 01/11/24 15:55 Date of Discharge: January 12, 2024 Attending Provider at Admission: Dutch Enciso M.D Attending Provider at Discharge: Dutch Enciso M.D Primary Care Provider: Justin Chapman DO Diagnoses at Discharge Discharge Diagnosis (1) Worsening angina: Status: Acute (2) Aortic stenosis, mild: Status: Acute Permanent problem details: Stable (3) CAD (coronary artery disease), [place] coronary artery: Status: Acute Qualifiers: Associated angina: with unstable angina [place] vs. transplanted heart: [place] heart Qualified Code(s): I25.110 - Atherosclerotic heart disease of [place] coronary artery with unstable angina pectoris Reason for Visit Reason for Visit: unstable ingina Discharge Data Studies Completed and Pending Completed Studies During Hospitalization Category Date Time Status CTA PE [CT angio chest PE protcl [id number]] Routine Cat Scan 01/12/24 11:51 Completed CXRP [XR chest 1V portable [id number]] Routine Exams 01/11/24 18:54 Completed CV. 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 Chest CTA 01/12/24 11:51 IMPRESSION: 1. Age-indeterminate occlusive RIGHT upper lobe subsegmental emboli. 2. No central pulmonary emboli. 3. No RIGHT heart strain. 4. Mild prominence of the interstitium. There may be a small component of fluid overload. 5. Prior RIGHT mastectomy. Laboratory Results WBC 6.90 10^3/uL (3.29-11.43) 01/12/24 03:51 RBC 3.73 10^6/uL (3.85-5.65) L 01/12/24 03:51 Hgb 11.60 g/dL (11.27-16.99) 01/12/24 03:51 Hct 34.6 % (36-47) L 01/12/24 03:51 MCV 92.8 fl (85-98) 01/12/24 03:51 MCH 31.1 pg (27-33) 01/12/24 03:51 MCHC 33.5 g/dL (30-55) 01/12/24 03:51 RDW 14.3 % (12.1-15.1) 01/12/24 03:51 Plt Count 310 10^3/cmm (157-399) 01/12/24 03:51 MPV 8.8 fL (7.4-10.4) 01/12/24 03:51 Neut % (Auto) 70.9 % 01/12/24 03:51 Lymph % (Auto) 20.6 % 01/12/24 03:51 [place] % (Auto) 6.1 % 01/12/24 03:51 Eos % (Auto) 1.4 % 01/12/24 03:51 Baso % (Auto) 0.9 % 01/12/24 03:51 Neut # (Auto) 4.89 10^3/uL (1.8-7.7) 01/12/24 03:51 Lymph # (Auto) 1.4 10^3/uL (0.8-4.8) 01/12/24 03:51 [place] # (Auto) 0.4 10^3/uL (0.2-0.9) 01/12/24 03:51 Eos # (Auto) 0.1 10^3/uL (0.0-0.8) 01/12/24 03:51 Baso # (Auto) 0.1 10^3/uL (0.0-0.1) 01/12/24 03:51 Nucleated RBC % (auto) 0 % 01/12/24 03:51 Nucleated RBCs # 0.0 /100WBC 01/12/24 03:51 D-Dimer 1.80 ug/mLFEU (0-0.59) H 01/11/24 19:06 Sodium 136 mmol/L (136-145) 01/12/24 03:51 Potassium 3.9 mmol/L (3.5-5.1) 01/12/24 03:51 Chloride 98 mmol/L (98-107) 01/12/24 03:51 Carbon Dioxide 25 mmol/L (22-29) 01/12/24 03:51 Anion Gap 16.9 (5-19) 01/12/24 03:51 BUN 13 mg/dL (8-23) 01/12/24 03:51 Creatinine 1.1 mg/dL (0.5-0.9) H 01/12/24 03:51 GFR Calculation Not Reportable 01/12/24 03:51 Glucose 103 mg/dL (65-115) 01/12/24 03:51 Calculated Osmolality 282 mOsm/kg (285-295) L 01/12/24 03:51 Calcium 8.5 mg/dL (8.5-10.5) 01/12/24 03:51 Troponin T Baseline < 6 ng/L (0-10) 01/11/24 17:52 Troponin T 120 Minute 6.00 ng/L (0-10) 01/11/24 20:03 Delta Troponin T 0.13299 ABS# (0-10) 01/11/24 20:03 Troponin T Hi Sens 6Hr 6.00 ng/L (0-10) 01/11/24 00:09 Troponin T Hi Sens 6Hr Delta 0 ng/L (0-12) 01/11/24 00:09 NT-Pro-B Natriuret Pep 448 pg/mL (0-450) 01/12/24 04:38 Coronavirus 229E (PCR) Not detected (NOT DETECT) 01/11/24 20:22 SARS-CoV-2 (PCR) Not detected (NOT DETECT) 01/11/24 20:22 Vitals Last Vital Signs Temp 97.5 F L 01/12/24 11:58 Pulse 76 01/12/24 11:58 Resp 22 H 01/12/24 11:58 BP 135/68 01/12/24 11:58 Pulse Ox 91 01/12/24 11:58 O2 Del Method Room Air 01/12/24 11:58 Discharge Plan Discharge Patient Disposition: Home Condition: Stable Prescriptions: Continued aspirin 81 mg tablet,delayed release (DR/EC) 81 mg PO QAM docusate sodium [Colace] 100 mg capsule 100 mg PO BID calcium carbonate-vitamin D3 [Calcium 600 with Vitamin D3] 600 mg(1,500mg) -500 unit capsule 1 cap PO DAILY@20 atorvastatin 80 mg tablet 80 mg PO DAILY@20 Spiriva Respimat 1.25 mcg/actuation mist 2 puff inhalation DAILY PRN (Reason: Shortness Of Breath) hydrochlorothiazide 12.5 mg tablet 12.5 mg PO DAILY PRN (Reason: edema) Qty: 90 0RF cholecalciferol (vitamin D3) 25 mcg (1,000 unit) capsule 25 mcg PO DAILY ascorbic acid (vitamin C) 500 mg tablet 250 mg PO DAILY Centrum Minis Women 50 Plus 4 mg iron-200 mcg-25 mcg tablet See Rx Instructions .ROUTE .COMPLEX Rx Instructions: 4mg iron, 200mcg-25mcg sucralfate 1 gram tablet 1 g PO TID PRN (Reason: Stomach Upset) nitroglycerin 0.4 mg tablet, sublingual 0.4 mg SUBLINGUAL Q5M PRN (Reason: chest pain) Qty: 30 2RF Rx Instructions: until response; do not exceed 3 doses per episode isosorbide mononitrate 30 mg tablet extended release 24 hr 15 mg PO DIRECTED Qty: 90 3RF Rx Instructions: 15mg daily; May take extra 15mg is BP <140/90 levetiracetam 1,000 mg tablet See Rx Instructions .ROUTE .COMPLEX Qty: 60 0RF Dose Instruction: TAKE 1 TABLET BY MOUTH TWICE DAILY Rx Instructions: TAKE 1 TABLET BY MOUTH TWICE DAILY albuterol sulfate 2.5 mg /3 mL (0.083 %) solution for nebulization 2.5 mg inhalation Q4H PRN (Reason: Shortness Of Breath) albuterol sulfate 90 mcg/actuation HFA aerosol inhaler 2 puff INHALATION Q4H PRN (Reason: Shortness Of Breath) fluticasone furoate-vilanterol [Breo Ellipta] 100-25 mcg/dose blister with device 1 inh INHALATION DAILY@09 ropinirole 0.5 mg tablet 0.5 mg PO BEDTIME metoprolol tartrate 25 mg tablet 12.5 mg PO BID pantoprazole 40 mg tablet,delayed release (DR/EC) 40 mg PO QAM citalopram 20 mg tablet 20 mg PO DAILY hydrocodone-acetaminophen 5-325 mg tablet 1 tab PO BID PRN (Reason: Pain) quetiapine [Seroquel] 100 mg Tablet 100 mg PO BEDTIME Discontinued clopidogrel 75 mg tablet 75 mg PO DAILY@20 Qty: 90 2RF No Action Eliquis 5 mg tablet 5 mg PO BID Qty: 180 3RF Discharge Orders: Discharge Order (Routine); Ordered 01/12/24 Ordered By: Dutch Enciso Referrals: Chelsie Gamble FNP [Nurse Practitioner] - 7-10 days Justin Chapman DO [Primary Care Provider] - 4-7 days Discharge Diet: Cardiac Discharge Activity: Increase activity as tolerated Patient Instructions: Anticoagulation Therapy, Apixaban (By mouth), Pulmonary Embolism (GEN), Safe Use of Anticoagulants (DC), Opioid Safety, Post Angiogram Home Care Instructions Activity Restrictions/Additional Instructions: Follow-up with your primary provider for reassessment after finding of pulmonary embolism in the right upper lung. Continue anticoagulation with Eliquis. Avoid any injury as Eliquis is a blood thinner increases risk of bleeding. In case of bleeding that is not resolving or any concerning bleeding, blood in your stool, urine, etc. seek medical attention. Hydrate and increase fluid intake. Seek medical attention in case of any worsening or new concerning symptoms. Discharge Attestations Time Spent in Discharge Care*: greater than 30 min Quality Metrics Clinical Quality Measures [ Venous Thromboembolism { Contraindication to Overlap Therapy: Other (Patient discharged on eliquis); VTE Discharge Education: Follow-up arranged; Deep Vein Thrombosis/Pulmonary Embolism Present on Admission: Yes;}] Coding Level of Care Code Acute Code for [facility] Fwd Diagnoses Worsening angina I20.0 Aortic stenosis, mild I35.0 Coronary artery disease involving [place] coronary artery of [place] heart with unstable angina pectoris I25.110 Associated angina: with unstable angina [place] vs. transplanted heart: [place] heart
--- NOTE | 2024-01-12 14:37 | PC.NURSE ---
ANTICOAGULANT THERAPY Spoke to Dr Enciso in regards to when the pt starts her Eliquis first dose for her PE and she is post angiogram with right radial access. Dr Enciso stated to let her start the Eliquis this evening at 5 pm. Instructed and educated pt and her sister at bedside.
--- NOTE | 2024-01-12 14:41 | PC.NURSE ---
meds to bed pt chooses [facility].
--- NOTE | 2024-01-12 15:52 | PC.NURSE ---
Discharge Note Patient discharged to home via private vehicle accompanied by sister. Discharge instructions reviewed with patient and/or support representative. Mobile pharmacy medications and/or prescriptions provided. Belongings/home medications returned. Education discussed about pulmonary embolism s/s, treatments, follow up appointments, bleeding risks and s/s of bleeding and when to call 911. Discharge instructions and education packet provided to pt.
[2024-01-12] MEDS: apixaban 5 mg Tablet 10 MG PO (16:57)
== END 2024-01-12 15:42 | disposition home or self-care (01) ==
PROVIDERS: Internal Medicine; Admitting Provider Internal Medicine; PCP Electrodiagnostic Medicine; Visit Provider Internal Medicine
DX: I25.110 Atherosclerotic heart disease of native coronary artery with unstable angina pectoris (principal); I35.0 Nonrheumatic aortic (valve) stenosis; Z95.5 Presence of coronary angioplasty implant and graft; J44.9 Chronic obstructive pulmonary disease, unspecified; G40.909 Epilepsy, unspecified, not intractable, without status epilepticus; Z79.01 Long term (current) use of anticoagulants; Z87.891 Personal history of nicotine dependence; Z85.3 Personal history of malignant neoplasm of breast; E66.9 Obesity, unspecified; Z68.31 Body mass index [BMI] 31.0-31.9, adult; Z79.82 Long term (current) use of aspirin
CPT/HCPCS: 36415; 71045; 71275; 80048; 83880; 84484; 85025; 85378; 87635; 93005; 93306; 93454; 93970; 94640; 94760; 96372; 96374; 96375; 99152; 99153; 99215; C1769; C1887; C1894; G0378; G0379; J1644; J1650; J2250; J3010; J3490; J7030; J7613; J7626; Q0163; Q9967

== ENCOUNTER → 2024-01-23 12:50 | Outpatient (BNVA) | payer MEDICARE, SELFPAY | PROVIDERS: PCP Electrodiagnostic Medicine; Visit Provider Nurse Practitioner Family | DX: I25.10 Atherosclerotic heart disease of native coronary artery without angina pectoris (principal); Z87.891 Personal history of nicotine dependence | CPT/HCPCS: 36415; 80048; 99214 ==

== ENCOUNTER 2024-02-12 10:55 | Oncology outpatient (recurring) (ONCR) | payer MEDICARE, SELFPAY ==
[2024-02-12 11:51] LABS: Basophils % 0.8 %; Eosinophils # 0.1 10^3/uL (0.0-0.8); Eosinophils % 2.9 %; Hematocrit 35.6 % (36-47); Lymphocytes # 1.2 10^3/uL (0.8-4.8); Lymphocytes % 26.1 %; Mean Corpuscular HGB Conc 33.1 g/dL (30-55); Mean Corpuscular Hemoglobin 30.6 pg (27-33); Mean Corpuscular Volume 92.2 fl (85-98); Mean Platelet Volume 8.9 fL (7.4-10.4); Monocytes # 0.4 10^3/uL (0.2-0.9); Neutrophils # 2.93 10^3/uL (1.8-7.7); Neutrophils % 61.8 %; Nucleated Red Blood Cells % 0 %; Platelet Count 311 10^3/cmm (157-399); Red Blood Count 3.86 10^6/uL (3.85-5.65); Red Cell Distribution Width 14.3 % (12.1-15.1); White Blood Count 4.75 10^3/uL (3.29-11.43)
[2024-02-12 12:08] LABS: Alanine Aminotransferase 24 U/L (0-33); Albumin Level 4.1 g/dL (3.5-5.2); Alkaline Phosphatase 144 U/L (35-105); Anion Gap 14.8 (5-19); Aspartate Amino Transferase 24 U/L (0-32); Blood Urea Nitrogen 17 mg/dL (8-23); Calcium 9.1 mg/dL (8.5-10.5); Carbon Dioxide 27 mmol/L (22-29); Chloride 100 mmol/L (98-107); Globulin 2.8 g/dL (1.3-4.6); Glucose 132 mg/dL (65-115); Osmolality Calculated 289 mOsm/kg (285-295); Potassium 3.8 mmol/L (3.5-5.1); Sodium 138 mmol/L (136-145); Total Bilirubin 0.4 mg/dL (0.15-1.2); Total Protein 6.9 g/dL (6.6-8.7)
[2024-02-12 14:03] LABS: 25 Hydroxy Vitamin D 53 ng/mL (30-100)
== END 2024-02-26 23:59 | disposition home or self-care (01) ==
PROVIDERS: Nurse Practitioner; Nurse Practitioner Family; PCP Electrodiagnostic Medicine; Visit Provider Internal Medicine Medical Oncology
DX: Z85.3 Personal history of malignant neoplasm of breast (principal); Z79.899 Other long term (current) drug therapy; Z53.9 Procedure and treatment not carried out, unspecified reason; Z08 Encounter for follow-up examination after completed treatment for malignant neoplasm; M85.80 Other specified disorders of bone density and structure, unspecified site; Z92.21 Personal history of antineoplastic chemotherapy; I73.9 Peripheral vascular disease, unspecified; R10.9 Unspecified abdominal pain; I25.110 Atherosclerotic heart disease of native coronary artery with unstable angina pectoris; Z87.891 Personal history of nicotine dependence
CPT/HCPCS: 36415; 80053; 82306; 85025; 99214

== ENCOUNTER 2024-02-23 13:52 | Outpatient (CLI) | payer MEDICARE, SELFPAY ==
--- NOTE | 2024-02-23 13:45 | CT_ITS ---
WS: [id number] CT ABDOMEN AND PELVIS WITH CONTRAST HISTORY: persistent generalized abdominal pain, history of RIGHT breast cancer. TECHNIQUE: Imaging performed of the abdomen and pelvis with IV contrast. Single phase imaging of the abdomen. Coronal and sagittal reformats are submitted. All CT scans at [facility] use at [address] one of these dose optimization techniques: automated exposure control; mA and/or kV adjustment per patient size (includes targeted exams where dose is matched to clinical indication); or iterative re construction. IV CONTRAST: Omnipaque 350; 100 mL IV. Oral contrast: Yes. DLP: 586.01 mGy.cm COMPARISON: 04/24/2023 Lower thorax: Groundglass attenuation at the lung bases is probably due to poor inspiration. Crowding of the lung markings but no mass. Prior RIGHT mastectomy. Heart is normal size. No hiatal hernia. Liver/biliary system: Normal size with no intrahepatic dilatation. Gallbladder: Contracted gallbladder with no adjacent inflammation. Pancreas: Normal size pancreas and pancreatic duct. No adjacent inflammation. Spleen: Normal size spleen. No mass or infarct. Adrenal glands: Normal. Right kidney: Normal size kidney. Stable cortical hypodensity. No solid mass. No obstruction. Left kidney: Normal. Aorta: Mild atherosclerosis with no aneurysm. Lymphadenopathy: None. Free fluid: None. GI tract: Prior appendectomy. Stomach is well distended with oral contrast. Moderate diffuse constipa tion. No small bowel obstruction or ischemic changes. Within the cecum there is an area of moderate e nhancement which is masslike near the cecal valve measuring 1.8 x 1.1 cm. This is surrounded by small amount of fluid. This could potentially represent a small polyp closely associated with the terminal ileum. Abdominal wall: Unremarkable abdominal wall. No hernia. Pelvis: No free fluid or adenopathy within the pelvis. Bones: Bilateral hip arthroplasties. No destructive bone lesions. CT/CT abdomen pelvis w con* [id number] IMPRESSION: 1. No evidence for metastatic disease within the liver or adrenal glands. 2. No acute abdominal wall abnormality to explain patient's discomfort. 3. Focal area of intermediate enhancement centered near the terminal ileum and the cecum. Focal area of enhancement measures 1.8 x 1.1 cm. This should be fur ther evaluated for possible neoplasm or polyp. If colonoscopy is not performed recommend a follow-up CT of the abdomen and pelvis with IV and oral contrast in 6 weeks. 4. Prior mastectomy.
[2024-02-23] MEDS: iohexol 350 mg/mL 500 mL Btl (per mL) IV (14:30)
== END 2024-02-23 13:53 | disposition home or self-care (01) ==
LOC: RAD 13:52
PROVIDERS: PCP Electrodiagnostic Medicine; Visit Provider Nurse Practitioner
DX: I73.9 Peripheral vascular disease, unspecified (principal); R93.89 Abnormal findings on diagnostic imaging of other specified body structures; K59.00 Constipation, unspecified; R10.9 Unspecified abdominal pain; Z90.49 Acquired absence of other specified parts of digestive tract; Z90.11 Acquired absence of right breast and nipple
CPT/HCPCS: 74177

== ENCOUNTER 2024-02-26 13:16 | Outpatient (CLI) | payer MEDICARE, SELFPAY ==
--- NOTE | 2024-02-26 14:00 | USCV_ITS ---
Karina Leija Age: 74 Gender: F : 1950 Exam Date: 02/26/2024 13:48 Ordering Phys: Karolina Valderrama NP Technologist: CT [place]am [place] [facility] [place]: Risk Factors: Previous Vascular Surgery: RIGHT LEFT BP: 136.0 / 81.00 BP: 132.0/ 80.00 0 0 Waveform Velocity (cm/s) Velocity (cm/s) Waveform Triphasic 126.8 Iliac Prox 109.2 Triphasic Triphasic 133.3 Iliac Mid 120.3 Triphasic Triphasic Iliac Distal Triphasic 142.3 118.4 Triphasic 133.0 ROLL SCALE MAN 123.0 Triphasic Triphasic 114.0 SFA Prox 120.0 Triphasic Triphasic 105.0 SFA Mid 84.0 Triphasic Triphasic 90.0 SFA Dist 68.0 Triphasic Biphasic 59.0 POP 80.0 Triphasic Biphasic 115.0 TELLER HEAD 93.0 Biphasic Biphasic 56.0 DPA 64.0 Biphasic 0.9 ABDOULAYE 0.9 FINDINGS Resting ABDOULAYE of 0.9 bilaterally. Minimal plaques in the iliac and femoral arteries bilaterally CONCLUSIONS 1. Borderline low resting ABIs bilaterally suggesting mild peripheral artery disease 2. Minimal plaques in the iliac and femoral arteries bilaterally Dr Rebecca Berger MD [facility] (Electronically Signed) Final Date: 26 February 2024 22:30 S
== END 2024-02-26 13:17 | disposition home or self-care (01) ==
LOC: RAD 13:16
PROVIDERS: PCP Electrodiagnostic Medicine; Visit Provider Nurse Practitioner
DX: I25.110 Atherosclerotic heart disease of native coronary artery with unstable angina pectoris (principal); R10.9 Unspecified abdominal pain; I73.9 Peripheral vascular disease, unspecified
CPT/HCPCS: 93925

== ENCOUNTER → 2024-04-09 14:19 | Outpatient (BNVA) | payer MEDICARE, SELFPAY | PROVIDERS: PCP Electrodiagnostic Medicine; Visit Provider Internal Medicine Cardiovascular Disease | DX: I73.9 Peripheral vascular disease, unspecified (principal); Z87.891 Personal history of nicotine dependence; I10 Essential (primary) hypertension; I35.0 Nonrheumatic aortic (valve) stenosis; Z86.73 Personal history of transient ischemic attack (TIA), and cerebral infarction without residual deficits; R56.9 Unspecified convulsions | CPT/HCPCS: 99214 ==

== ENCOUNTER 2024-04-23 10:56 | Oncology outpatient (recurring) (ONCR) | payer MEDICARE, SELFPAY | END 2024-04-27 23:59 | disposition home or self-care (01) | LOC: ONCMED 10:57 | PROVIDERS: PCP Electrodiagnostic Medicine; Visit Provider Internal Medicine Medical Oncology | DX: L03.113 Cellulitis of right upper limb (principal); Z85.3 Personal history of malignant neoplasm of breast | CPT/HCPCS: 99214 ==

== ENCOUNTER 2024-05-07 11:02 | Oncology outpatient (recurring) (ONCR) | payer MEDICARE, SELFPAY | END 2024-05-28 23:59 | disposition home or self-care (01) | PROVIDERS: PCP Electrodiagnostic Medicine; Visit Provider Internal Medicine Medical Oncology | DX: L03.113 Cellulitis of right upper limb (principal); Z85.3 Personal history of malignant neoplasm of breast; Z79.899 Other long term (current) drug therapy; Z92.21 Personal history of antineoplastic chemotherapy; Z87.891 Personal history of nicotine dependence | CPT/HCPCS: 99214 ==

== ENCOUNTER 2024-06-14 09:55 | Emergency (ER) | payer MEDICARE, SELFPAY ==
[2024-06-14 10:23] VITALS: BP 131/75; PULSE 85; RESP 17; TEMP 36.8; O2SAT 92; BMI 31.6
--- NOTE | 2024-06-14 14:40 | ED_ITS ---
HPI - Epistaxis General: Chief complaint: Epistaxis Stated complaint: nose bleed Time Seen by Provider: 06/14/24 14:40 Source: patient and family Mode of arrival: ambulatory Limitations: no limitations History of Present Illness: Patient is a 74-year-old female presents to ED today with complaint of epistaxis involving her right nare. Patient states she initially had a nosebleed on Monday. She was seen by her primary care provider, Dr. Chapman. Patient states bleeding persisted intermittently throughout Monday before subsiding on its own. She had no further bleeding throughout Monday and . She states earlier today after bending over her right nare began to bleed again. She is on anticoagulation, apixaban. Upon arrival to the emergency department bleeding is extremely minimal. MD complaint: epistaxis Location: right nostril Onset (ago): hour(s) Duration: intermittent Context: other anticoagulant use Associated symptoms: Reports no associated symptoms; Deny fever(s), headache(s), sinus pain or vomiting Treatment prior to arrival: nose pinching Related Data Home Medications Medication Instructions Recorded Confirmed aspirin 81 mg tablet,delayed 81 mg PO QAM 06/10/19 05/07/24 release docusate sodium 100 mg capsule 100 mg PO BID 06/10/19 05/07/24 (Colace) atorvastatin 80 mg tablet 80 mg PO DAILY@11/07/19 05/07/24 calcium 600 mg (as 1 cap PO DAILY@12/16/19 05/07/24 carbonate)-vitamin D3 12.5 mcg (500 unit) capsule (Calcium with Vit D3) albuterol sulfate 2.5 mg/3 mL 2.5 mg inhalation Q4H PRN 01/19/20 05/07/24 (0.083 %) solution for nebulization Shortness Of Breath albuterol sulfate 90 mcg/actuation 2 puff inhalation Q4H PRN 01/19/20 05/07/24 aerosol inhaler Shortness Of Breath fluticasone furoate 100 1 inh inhalation DAILY@01/19/20 05/07/24 mcg-vilanterol 25 mcg/dose inhalation powder (Breo Ellipta) metoprolol tartrate 25 mg tablet 12.5 mg PO BID 03/30/21 05/07/24 pantoprazole 40 mg tablet,delayed 40 mg PO QAM 03/30/21 05/07/24 release ropinirole 0.5 mg tablet 0.5 mg PO BEDTIME 03/30/21 05/07/24 citalopram 20 mg tablet 20 mg PO DAILY 12/24/21 05/07/24 hydrocodone 5 mg-acetaminophen 325 1 tab PO BID PRN Pain 08/17/22 05/07/24 mg tablet quetiapine 100 mg tablet (Seroquel) 100 mg PO BEDTIME 08/17/22 05/07/24 tiotropium bromide 1.25 2 puff inhalation DAILY PRN 01/09/23 05/07/24 mcg/actuation mist for inhalation Shortness Of Breath (Spiriva Respimat) ascorbic acid (vitamin C) 500 mg 250 mg PO DAILY 01/11/24 05/07/24 tablet cholecalciferol (vitamin D3) 25 25 mcg PO DAILY 01/11/24 05/07/24 mcg (1,000 unit) capsule [id number] 4 mg-folic acid See Rx Instructions .Route .COMPLEX 01/11/24 05/07/24 200 mcg-vit K 25 mcg-lutein tablet (Centrum Minis Women 50 Plus) sucralfate 1 gram tablet 1 g PO TID PRN Stomach Upset 01/11/24 05/07/24 levetiracetam 1,000 mg tablet 750 mg .Route BID 04/09/24 05/07/24 Previous Rx's Medication Instructions Recorded nitroglycerin 0.4 mg sublingual 0.4 mg sublingual Q5M PRN chest 09/13/21 tablet pain #30 tabs hydrochlorothiazide 12.5 mg tablet 12.5 mg PO DAILY PRN edema #90 tabs 01/09/23 apixaban 5 mg tablet (Eliquis) 5 mg PO BID #180 tabs 01/17/24 isosorbide mononitrate 30 mg 15 mg (1/2 x 30 mg) PO DIRECTED 02/12/24 tablet,extended release 24 hr #90 tabs cephalexin 500 mg capsule 500 mg PO TID 10 days #30 caps 04/23/24 methylprednisolone 4 mg tablets in See Rx Instructions PO PER PKG DIR 04/23/24 a dose pack (Medrol (Aguila)) #21 ea cephalexin 500 mg capsule 500 mg PO DAILY prevention of 05/07/24 infection 30 days #30 caps Allergies Allergy/AdvReac Type Severity Reaction Status Date / Time No Known Allergies Allergy Verified 05/07/24 15:41 Review of Systems Const: Denies: fever(s) ENMT: Reports: epistaxis (Monday, today); Denies: nasal discharge, nasal congestion or sinus pain GI: Denies: nausea or vomiting Neuro: Denies: headache(s) PFSH ED PFSH: Medical History Malignant neoplasm of overlapping sites of right female breast Varicose vein of leg Obesity HLD (hyperlipidemia) Aortic stenosis, mild Stable Angina pectoris Status post PCI to diagonal branch. No more angina CAD (coronary artery disease), [place] coronary artery Primary osteoarthritis of both hips Surgical History Hx of hysterectomy Hx of appendectomy Hx of right mastectomy History of total hip arthroplasty Family History Grandmother CAD (coronary artery disease) Hypertension Father CAD (coronary artery disease) Cancer Diabetes Hypertension Lung disease Mother Cancer Dementia Diabetes Hypertension Daughter Chronic kidney disease (CKD) eldest Hypertension Daughter Chronic kidney disease (CKD) third child Sister Hyperlipidemia all sisters Hypertension Lung disease Unknown Suicide maternal aunt-GSW- mid 40s Social History Smoking and tobacco/nicotine status: former use of tobacco/nicotine Quit status (tobacco/nicotine): has quit using Year quit tobacco: 2017 Second hand smoke exposure: Yes Alcohol intake: never Substance/Drug Use: never Physical Exam Const: COMMON NORMALS: no acute distress, average body habitus, no limitations, healthy appearing, alert and well nourished HENMT: COMMON NORMALS: Normal external nose present NOSE: Normal external nose present, No nasal polyps present and Epistaxis present on the right (scant oozing from right Kiesselbach plexus) anterior source; no clots present THROAT: posterior oropharynx normal Neuro: SENSORIUM/ORIENTATION: Yes alert Procedures Epistaxis Control Nostril: right Nose Prepped With: oxymetazoline Direct Inspection: yes Clots Removed by: manually Cautery Used: silver nitrate Patient Tolerated Procedure: well Course Vital Signs: Vital signs: Vital Signs Temperature 98.3 F 06/14/24 10:23 Pulse Rate 85 06/14/24 10:23 Respiratory Rate 17 06/14/24 10:23 Blood Pressure 131/75 06/14/24 10:23 Pulse Oximetry 92 06/14/24 10:23 Oxygen Delivery Me thod Room Air 06/14/24 10:23 MDM - Epistaxis Medical Decision Making Patient was initially treated with Afrin/nasal clamp but bleeding returned after clamp was removed. She was noted to have a clot that was then removed. Small amount of cauterization performed with silver nitrate. She was monitored for approximately 30 minutes following this with no further bleeding. She will be allowed discharge with return precautions. Differential Diagnosis Likely anterior epistaxis Medical Records I reviewed the patient's medical records. No radiology studies performed this visit Discharge Plan Discharge Patient Disposition: Home Clinical Impression: Acute anterior epistaxis Condition: Stable Prescriptions: No Action aspirin 81 mg tablet,delayed release (DR/EC) 81 mg PO QAM docusate sodium [Colace] 100 mg capsule 100 mg PO BID calcium carbonate-vitamin D3 [Calcium 600 with Vitamin D3] 600 mg(1,500mg) - 500 unit capsule 1 cap PO DAILY@20 atorvastatin 80 mg tablet 80 mg PO DAILY@20 Spiriva Respimat 1.25 mcg/actuation mist 2 puff inhalation DAILY PRN (Reason: Shortness Of Breath) hydrochlorothiazide 12.5 mg tablet 12.5 mg PO DAILY PRN (Reason: edema) Qty: 90 0RF cholecalciferol (vitamin D3) 25 mcg (1,000 unit) capsule 25 mcg PO DAILY ascorbic acid (vitamin C) 500 mg tablet 250 mg PO DAILY Centrum Minis Women 50 Plus 4 mg iron-200 mcg-25 mcg tablet See Rx Instructions .ROUTE .COMPLEX Rx Instructions: 4mg iron, 200mcg-25mcg sucralfate 1 gram tablet 1 g PO TID PRN (Reason: Stomach Upset) levetiracetam 1,000 mg tablet 750 mg .ROUTE BID Rx Instructions: 750 mg twice a day; cephalexin 500 mg capsule 500 mg PO DAILY 30 Days Qty: 30 1RF cephalexin 500 mg capsule 500 mg PO TID 10 Days Qty: 30 0RF methylprednisolone [Medrol (Aguila)] 4 mg tablets,dose pack See Rx Instructions PO PER PKG DIR Qty: 21 0RF Rx Instructions: PO PER PKG DIR for 6 days nitroglycerin 0.4 mg tablet, sublingual 0.4 mg SUBLINGUAL Q5M PRN (Reason: chest pain) Qty: 30 2RF Rx Instructions: until response; do not exceed 3 doses per episode Eliquis 5 mg tablet 5 mg PO BID Qty: 180 3RF isosorbide mononitrate 30 mg tablet extended release 24 hr 15 mg PO DIRECTED Qty: 90 3RF Rx Instructions: 15mg daily; May take extra 15mg is BP <140/90 albuterol sulfate 2.5 mg /3 mL (0.083 %) solution for nebulization 2.5 mg inhalation Q4H PRN (Reason: Shortness Of Breath) albuterol sulfate 90 mcg/actuation HFA aerosol inhaler 2 puff INHALATION Q4H PRN (Reason: Shortness Of Breath) fluticasone furoate-vilanterol [Breo Ellipta] 100-25 mcg/dose blister with device 1 inh INHALATION DAILY@09 ropinirole 0.5 mg tablet 0.5 mg PO BEDTIME metoprolol tartrate 25 mg tablet 12.5 mg PO BID pantoprazole 40 mg tablet,delayed release (DR/EC) 40 mg PO QAM citalopram 20 mg tablet 20 mg PO DAILY hydrocodone-acetaminophen 5-325 mg tablet 1 tab PO BID PRN (Reason: Pain) quetiapine [Seroquel] 100 mg Tablet 100 mg PO BEDTIME Discharge Orders: Discharge ED (Routine); Ordered 06/14/24 Ordered By: Khushboo Seymour Referrals: Justin Chapman DO [Primary Care Provider] - Patient Instructions: Nosebleed (ED), Epistaxis - Adult Activity Restrictions/Additional Instructions: As we discussed, be very careful throughout the evening not to touch your nose. Avoid lying flat. Try not to cough. If you sneeze, please keep your mouth open. Avoid bending or straining. If bleeding does begin again, you have been instructed on Afrin use as well as nasal clamp. If you are unable to control bleeding at home, you may return to the emergency department. Coding Level of Care Code ED Neon Glass Bender for Phillip Flores
[2024-06-14] MEDS: oxymetazoline 0.05% Nasal Spray 15 mL 2 SPRAY NOSTRIL-R (15:06)
== END 2024-06-14 16:37 | disposition home or self-care (01) ==
PROVIDERS: Emergency Provider Physician Assistant; PCP Electrodiagnostic Medicine
DX: R04.0 Epistaxis (principal); Z79.82 Long term (current) use of aspirin; Z79.01 Long term (current) use of anticoagulants; Z87.891 Personal history of nicotine dependence; E78.5 Hyperlipidemia, unspecified; I25.10 Atherosclerotic heart disease of native coronary artery without angina pectoris
CPT/HCPCS: 99283

== ENCOUNTER 2024-09-02 10:58 | Oncology outpatient (recurring) (ONCR) | payer MEDICARE, SELFPAY ==
[2024-09-02 11:15] LABS: Basophils % 0.6 %; Eosinophils # 0.1 10^3/uL (0.0-0.8); Eosinophils % 2.2 %; Hematocrit 33.8 % (36-47); Lymphocytes % 17.9 %; Mean Corpuscular Hemoglobin 27.1 pg (27-33); Mean Corpuscular Volume 84.9 fl (85-98); Mean Platelet Volume 8.7 fL (7.4-10.4); Monocytes # 0.4 10^3/uL (0.2-0.9); Monocytes % 7.9 %; Neutrophils # 3.81 10^3/uL (1.8-7.7); Neutrophils % 71.2 %; Nucleated Red Blood Cells % 0 %; Platelet Count 374 10^3/cmm (157-399); Red Blood Count 3.98 10^6/uL (3.85-5.65); Red Cell Distribution Width 16.4 % (12.1-15.1); White Blood Count 5.35 10^3/uL (3.29-11.43)
[2024-09-02 11:33] LABS: Alanine Aminotransferase 19 U/L (0-33); Albumin Level 4.1 g/dL (3.5-5.2); Alkaline Phosphatase 126 U/L (35-105); Anion Gap 14.2 (5-19); Aspartate Amino Transferase 25 U/L (0-32); Blood Urea Nitrogen 12 mg/dL (8-23); Calcium 9.2 mg/dL (8.5-10.5); Carbon Dioxide 26 mmol/L (22-29); Chloride 95 mmol/L (98-107); Creatinine Clr Calc Pharmacy 6.5114; Glucose 92 mg/dL (65-115); Osmolality Calculated 271 mOsm/kg (285-295); Potassium 4.2 mmol/L (3.5-5.1); Sodium 131 mmol/L (136-145); Total Bilirubin 0.4 mg/dL (0.15-1.2); Total Protein 7.1 g/dL (6.6-8.7)
== END 2024-09-25 23:59 | disposition home or self-care (01) ==
PROVIDERS: Internal Medicine Medical Oncology; PCP Electrodiagnostic Medicine; Visit Provider Internal Medicine Medical Oncology
DX: Z53.9 Procedure and treatment not carried out, unspecified reason (principal); Z08 Encounter for follow-up examination after completed treatment for malignant neoplasm; Z85.3 Personal history of malignant neoplasm of breast; D50.9 Iron deficiency anemia, unspecified; M85.80 Other specified disorders of bone density and structure, unspecified site; Z87.891 Personal history of nicotine dependence; Z92.21 Personal history of antineoplastic chemotherapy; Z90.11 Acquired absence of right breast and nipple
CPT/HCPCS: 36415; 80053; 85025; 99214

== ENCOUNTER 2024-09-24 13:32 | Emergency (ER) | payer MEDICARE, SELFPAY ==
[2024-09-24 13:33] VITALS: BP 131/59; PULSE 85; RESP 18; TEMP 36.6; O2SAT 95
--- NOTE | 2024-09-24 13:44 | XRR_ITS ---
PROCEDURE INFORMATION: Exam: XR Chest Exam date and time: 09/24/2024 1:58 PM Age: 74 years old Clinical indication: Other: Weakness; Prior surgery; Surgery date: 6+ months; Surgery type: Mastectomy; HX of breast cancer. No history of recent trauma or surgery is otherwise provided. TECHNIQUE: Imaging protocol: Radiologic exam of the chest. 1image(s) are provided. Views: 1 view. COMPARISON: 1. CR XR chest 2V* [id number] 05/31/2024 12:29 PM 2. CR XR chest 1V portable [id number] 01/11/2024 8:27 PM FINDINGS: Lungs: No lobar consolidation is appreciated.There is some subsegmental atelectasis versus post inflammatory reticulonodular similar scarring demonstrated. There is some air trapping well as granulomatous appearance with some similar. There is some apical fibronodular scarring similar overall. Pleural spaces: There is some minimal costophrenic angle blunting.No pneumothorax is appreciated. Heart/Mediastinum: The cardiomediastinal silhouette is upper normal in size.This can be seen with central averaging as well as divine enlargement.No cardiac decompensation is appreciated. Atherosclerotic vascular changes are demonstrated. Diaphragm: The hemidiaphragms are relatively symmetric. Bones/joints: No interval displaced fracture or dislocation is appreciated.There are some degenerative changes of the shoulders and spine overall present. There is slightly decreased bone mineralization overall. Soft tissues: No radiopaque foreign body or subcutaneous emphysema is appreciated. There is asymmetry of the chest wall soft tissues suggestive of previous right chest wall surgery. No other significant interval changes are appreciated. XR/XR chest 1V portable [id number] IMPRESSION: No interval lobar consolidation or cardiac decompensation is appreciated.No significant change of parenchymal aeration is appreciated.
--- NOTE | 2024-09-24 13:50 | W.ED.SEIZURE ---
HPI - Seizure General: Chief Complaint: Seizure Stated Complaint: Seizure Like Time Seen by Provider: 09/24/24 13:40 History of Present Illness: HPI Narrative: 74-year-old female with a history of coronary artery disease status post stents on Plavix, hypertension, hyperlipidemia and obesity who presents to the emergency room with complaint of seizure . She says she has had 2 episodes that lasted over an hour where she was shaking. She was awake and can talk. Discussed that that might not be a seizure that it could be some sort of tremor or may be rigors from a fever. She says she does not feel bad. She says she feels fine now. No chest pain. No altered mental status. No focal motor deficits. No abdominal pain. No nausea or vomiting. No known fevers. No dysuria Seizure History: Yes Related Data Home Medications ?Medication ?Instructions ?Recorded ?Confirmed docusate sodium 100 mg capsule 100 mg PO BID 06/10/19 09/24/24 (Colace) calcium 600 mg (as 1 cap PO DAILY@20 12/16/19 09/24/24 carbonate)-vitamin D3 12.5 mcg (500 unit) capsule (Calcium with Vit D3) metoprolol tartrate 25 mg tablet 12.5 mg PO BID 03/30/21 09/24/24 pantoprazole 40 mg tablet,delayed 40 mg PO QAM 03/30/21 09/24/24 release hydrocodone 5 mg-acetaminophen 325 1 tab PO BID PRN Pain 08/17/22 09/24/24 mg tablet quetiapine 100 mg tablet (Seroquel) 100 mg PO BEDTIME 08/17/22 09/24/24 ascorbic acid (vitamin C) 500 mg 250 mg PO DAILY 01/11/24 09/24/24 tablet cholecalciferol (vitamin D3) 25 25 mcg PO DAILY 01/11/24 09/24/24 mcg (1,000 unit) capsule [id number] 4 mg-folic acid 1 tab PO DAILY 01/11/24 09/24/24 200 mcg-vit K 25 mcg-lutein tablet (Centrum Minis Women 50 Plus) sucralfate 1 gram tablet 1 g PO TID PRN Stomach Upset 01/11/24 09/24/24 acyclovir 800 mg tablet 800 mg PO .5XD PRN zoster 09/24/24 09/24/24 clopidogrel 75 mg tablet 75 mg PO DAILY 09/24/24 09/24/24 fluticasone fur. 200 mcg-umeclid 1 inh inhalation DAILY 09/24/24 09/24/24 62.5 mcg-vilant 25 mcg inhalat.powder (Trelegy Ellipta) gabapentin 300 mg capsule 300 mg PO BID 09/24/24 09/24/24 isosorbide mononitrate 30 mg See Rx Instructions .Route .COMPLEX 09/24/24 09/24/24 tablet,extended release 24 hr levetiracetam 750 mg tablet 750 mg PO BID 09/24/24 09/24/24 ropinirole 1 mg tablet 1 mg PO QPM 09/24/24 09/24/24 tizanidine 2 mg tablet 2 mg PO DAILY PRN Back Pain 09/24/24 09/24/24 vitamin B complex 1 tab PO DAILY 09/24/24 09/24/24 Previous Rx's ?Medication ?Instructions ?Recorded nitroglycerin 0.4 mg sublingual 0.4 mg sublingual Q5M PRN chest 09/13/21 tablet pain #30 tabs hydrochlorothiazide 12.5 mg tablet 12.5 mg PO DAILY PRN edema #90 tabs 01/09/23 apixaban 5 mg tablet (Eliquis) 5 mg PO BID #180 tabs 01/17/24 ferrous gluconate 324 mg (37.5 mg 324 mg PO DAILY #30 tabs 09/02/24 iron) tablet cephalexin 500 mg tablet 500 mg PO TID 7 days #21 tabs 09/24/24 Allergies Allergy/AdvReac Type Severity Reaction Status Date / Time No Known Allergies Allergy Verified 09/02/24 11:15 Review of Systems Narrative: Constitutional symptoms: Negative except as documented in HPI. Skin symptoms: Negative except as documented in HPI. Eye symptoms: Negative except as documented in HPI. ENMT symptoms: Negative except as documented in HPI. Respiratory symptoms: Negative except as documented in HPI. Cardiovascular symptoms: Negative except as documented in HPI. Gastrointestinal symptoms: Negative except as documented in HPI. Genitourinary symptoms: Negative except as documented in HPI. Musculoskeletal symptoms: Negative except as documented in HPI. Neurologic symptoms: Negative except as documented in HPI. Psychiatric symptoms: Negative except as documented in HPI. Endocrine symptoms: Negative except as documented in HPI. PFSH ED PFSH: Medical History Malignant neoplasm of overlapping sites of right female breast Varicose vein of leg Obesity HLD (hyperlipidemia) Aortic stenosis, mild Stable Angina pectoris Status post PCI to diagonal branch. No more angina CAD (coronary artery disease), [place] coronary artery Primary osteoarthritis of both hips Surgical History Hx of hysterectomy Hx of appendectomy Hx of right mastectomy History of total hip arthroplasty Family History Grandmother CAD (coronary artery disease) Hypertension Father CAD (coronary artery disease) Cancer Diabetes Hypertension Lung disease Mother Cancer Dementia Diabetes Hypertension Daughter Chronic kidney disease (CKD) eldest Hypertension Daughter Chronic kidney disease (CKD) third child Sister Hyperlipidemia all sisters Hypertension Lung disease Unknown Suicide maternal aunt-GSW- mid 40s Social History Smoking and tobacco/nicotine status: former use of tobacco/nicotine Quit status (tobacco/nicotine): has quit using Year quit tobacco: 2017 Second hand smoke exposure: Yes Alcohol intake: never Substance/Drug Use: never Physical Exam Narrative: EXAM NARRATIVE: General: Alert, no acute distress. Skin: Warm, dry. Head: Normocephalic, atraumatic. Neck: Supple, trachea midline. Eye: Extraocular movements are intact. Ears, nose, mouth and throat: mucosa moist. Cardiovascular: Regular, Normal peripheral perfusion. Respiratory: Lungs are clear to auscultation, respirations are non-labored, breath sounds are equal, Symmetrical chest wall expansion. Gastrointestinal: Soft, Nontender, Non distended Musculoskeletal: Normal ROM, no deformity. Neurological: Alert and oriented, No focal neurological deficit observed. Psychiatric: Cooperative, appropriate mood & affect. Course Vital Signs: Vital signs: Vital Signs Temperature 97.9 F 09/24/24 13:33 Pulse Rate 75 09/24/24 16:00 Respiratory Rate 71 H 09/24/24 14:30 Blood Pressure 127/64 09/24/24 16:00 Pulse Oximetry 94 09/24/24 16:00 Oxygen Delivery Me thod Room Air 09/24/24 16:00 MDM - Seizure MDM Narrative Medical decision making narrative: Medical decision making: Differential diagnosis including but not limited to and based on the above HPI, review of systems and physical exam: Orders placed to evaluate differential diagnosis based on the above differential, HPI and physical exam. In this patient who had shaking I will check a lactate although I have very low suspicion that she had a true seizure. Also will check for infection as she might of had rigors. Lab Review: Laboratory results were reviewed and interpreted by myself the emergency room physician. No leukocytosis. No anemia. No renal failure. Flu COVID and RSV are negative. Urine has a few whites and 2+ bacteria so maybe she is developing a bit of urinary tract infection which might of caused some rigors which would be my best bet on the symptoms she was having at home. CT head: No acute intracranial process. no intracranial hemorrhage, no evidence of infarct. no evidence of acute fracture.This was reviewed and interpreted by myself the ER physician. Chest x-ray: No acute process. No infiltrate. No pneumothorax. This was reviewed and interpreted by myself the emergency room physician. I also reviewed the radiology report. I reviewed the patient's medical record. Reexamination: Patient remained stable. No increased work of breathing. No altered mental status. No focal motor deficits. Assessment and plan: Urinary tract infection Rigors ? Rocephin in the emergency room - Discharged home - Discussed plan with patient. Answered any questions. - Evaluation and treatment of this problem were appropriate in the emergency setting. Lab Data 09/24/24 13:53 09/24/24 13:53 Labs: Radiology Impressions Chest X-Ray 09/24/24 13:44 IMPRESSION: No interval lobar consolidation or cardiac decompensation is appreciated.No significant change of parenchymal aeration is appreciated. Head CT 09/24/24 14:10 IMPRESSION: 1. Stable noncontrast head CT since 04/24/2023. 2. No acute intracranial hemorrhage or edema. 3. Mild cerebral atrophy. Laboratory Results WBC 5.90 10^3/uL (3.29-11.43) 09/24/24 13:53 RBC 3.96 10^6/uL (3.85-5.65) 09/24/24 13:53 Hgb 11.10 g/dL (11.27-16.99) L 09/24/24 13:53 Hct 34.2 % (36-47) L 09/24/24 13:53 MCV 86.4 fl (85-98) 09/24/24 13:53 MCH 28.0 pg (27-33) 09/24/24 13:53 MCHC 32.5 g/dL (30-55) 09/24/24 13:53 RDW 18.4 % (12.1-15.1) H 09/24/24 13:53 Plt Count 313 10^3/cmm (157-399) 09/24/24 13:53 MPV 9.1 fL (7.4-10.4) 09/24/24 13:53 Neut % (Auto) 68.3 % 09/24/24 13:53 Lymph % (Auto) 21.7 % 09/24/24 13:53 [place] % (Auto) 7.1 % 09/24/24 13:53 Eos % (Auto) 2.0 % 09/24/24 13:53 Baso % (Auto) 0.7 % 09/24/24 13:53 Neut # (Auto) 4.03 10^3/uL (1.8-7.7) 09/24/24 13:53 Lymph # (Auto) 1.3 10^3/uL (0.8-4.8) 09/24/24 13:53 [place] # (Auto) 0.4 10^3/uL (0.2-0.9) 09/24/24 13:53 Eos # (Auto) 0.1 10^3/uL (0.0-0.8) 09/24/24 13:53 Baso # (Auto) 0.0 10^3/uL (0.0-0.1) 09/24/24 13:53 Nucleated RBC % (auto) 0 % 09/24/24 13:53 Nucleated RBCs # 0.0 /100WBC 09/24/24 13:53 Sodium 131 mmol/L (136-145) L 09/24/24 13:53 Potassium 3.8 mmol/L (3.5-5.1) 09/24/24 13:53 Chloride 94 mmol/L (98-107) L 09/24/24 13:53 Carbon Dioxide 29 mmol/L (22-29) 09/24/24 13:53 Anion Gap 11.8 (5-19) 09/24/24 13:53 BUN 15 mg/dL (8-23) 09/24/24 13:53 Creatinine 1.0 mg/dL (0.5-0.9) H 09/24/24 13:53 GFR Calculation Not Reportable 09/24/24 13:53 Glucose 112 mg/dL (65-115) 09/24/24 13:53 Calculated Osmolality 274 mOsm/kg (285-295) L 09/24/24 13:53 Lactic Acid 0.8 mmol/L (0.5-2.2) 09/24/24 13:53 Calcium 8.7 mg/dL (8.5-10.5) 09/24/24 13:53 Total Bilirubin 0.3 mg/dL (0.15-1.2) 09/24/24 13:53 AST 22 U/L (0-32) 09/24/24 13:53 ALT 15 U/L (0-33) 09/24/24 13:53 Alkaline Phosphatase 131 U/L (35-105) H 09/24/24 13:53 C-Reactive Protein 4.1 mg/L (0.0-4.9) 09/24/24 13:53 Total Protein 6.7 g/dL (6.6-8.7) 09/24/24 13:53 Albumin 3.8 g/dL (3.5-5.2) 09/24/24 13:53 Globulin 2.9 g/dL (1.3-4.6) 09/24/24 13:53 Urine Color Yellow (Yellow) 09/24/24 14:24 Urine Appearance Clear (CLEAR) 09/24/24 14:24 Urine pH 7.0 (5-7) 09/24/24 14:24 Ur Specific [place] 1.014 (1.005-1.030) 09/24/24 14:24 Urine Protein Negative (Negative) 09/24/24 14:24 Urine Glucose (UA) Negative (Normal) 09/24/24 14:24 Urine Ketones Negative (Negative) 09/24/24 14:24 Urine Blood Negative (Negative) 09/24/24 14:24 Urine Nitrate Negative (Negative) 09/24/24 14:24 Urine Bilirubin Negative (Negative) 09/24/24 14:24 Urine Urobilinogen 0.2 mg/dL (Negative) 09/24/24 14:24 Ur Leukocyte Esterase Negative (Negative) 09/24/24 14:24 Urine RBC 6-10 /hpf (0-2) 09/24/24 14:24 Urine WBC 0-5 /hpf (0-5) 09/24/24 14:24 Ur Squamous Epith Cells 0-5 /hpf (0-5) 09/24/24 14:24 Amorphous Sediment Not Reportable 09/24/24 14:24 Urine Bacteria 2+ /hpf (NONE) H 09/24/24 14:24 Hyaline Casts 0.40 /lpf 09/24/24 14:24 Influenza A (PCR) Negative (Negative) 09/24/24 14:00 Influenza Type B (PCR) Negative (Negative) 09/24/24 14:00 RSV (PCR) Negative (Negative) 09/24/24 14:00 SARS-CoV-2 (PCR) Negative (Negative) 09/24/24 14:00 All radiology interpretation(s) finalized by discharge Discharge Plan Discharge Patient Disposition: Home Clinical Impression: Rigors, UTI (urinary tract infection) Condition: Stable Prescriptions: New cephalexin 500 mg tablet 500 mg PO TID 7 Days Qty: 21 0RF No Action docusate sodium [Colace] 100 mg capsule 100 mg PO BID calcium carbonate-vitamin D3 [Calcium 600 with Vitamin D3] 600 mg(1,500mg) -500 unit capsule 1 cap PO DAILY@20 hydrochlorothiazide 12.5 mg tablet 12.5 mg PO DAILY PRN (Reason: edema) Qty: 90 0RF cholecalciferol (vitamin D3) 25 mcg (1,000 unit) capsule 25 mcg PO DAILY ascorbic acid (vitamin C) 500 mg tablet 250 mg PO DAILY Centrum Minis Women 50 Plus 4 mg iron-200 mcg-25 mcg tablet 1 tab PO DAILY sucralfate 1 gram tablet 1 g PO TID PRN (Reason: Stomach Upset) ferrous gluconate 324 mg (37.5 mg iron) tablet 324 mg PO DAILY Qty: 30 6RF nitroglycerin 0.4 mg tablet, sublingual 0.4 mg SUBLINGUAL Q5M PRN (Reason: chest pain) Qty: 30 2RF Rx Instructions: until response; do not exceed 3 doses per episode Eliquis 5 mg tablet 5 mg PO BID Qty: 180 3RF metoprolol tartrate 25 mg tablet 12.5 mg PO BID pantoprazole 40 mg tablet,delayed release (DR/EC) 40 mg PO QAM hydrocodone-acetaminophen 5-325 mg tablet 1 tab PO BID PRN (Reason: Pain) quetiapine [Seroquel] 100 mg Tablet 100 mg PO BEDTIME ropinirole 1 mg tablet 1 mg PO QPM levetiracetam 750 mg tablet 750 mg PO BID isosorbide mononitrate 30 mg tablet extended release 24 hr See Rx Instructions .ROUTE .COMPLEX Rx Instructions: Take 15mg daily; May take extra 15mg is BP <140/90. tizanidine 2 mg tablet 2 mg PO DAILY PRN (Reason: Back Pain) clopidogrel 75 mg tablet 75 mg PO DAILY acyclovir 800 mg tablet 800 mg PO .5XD PRN (Reason: zoster) gabapentin 300 mg capsule 300 mg PO BID Trelegy Ellipta 200-62.5-25 mcg blister with device 1 inh INHALATION DAILY vitamin B complex Tablet 1 tab PO DAILY Discharge Orders: Discharge ED (Routine); Ordered 09/24/24 Ordered By: Nery De Luna Referrals: Justin Chapman DO [Primary Care Provider] - Discharge Diet: Usual diet Discharge Activity: Increase activity as tolerated Patient Instructions: Urinary Tract Infection in Older Adults (ED), Opioid Safety, Pain Management Activity Restrictions/Additional Instructions: Thank you for choosing [facility] for your healthcare needs today. You have been screened and evaluated and felt safe for discharge. Health conditions do change or evolve sometimes and as such it is important that you follow up with your Primary Doctor to be re checked, 3-5 days is a general good time frame for follow up. You are always welcome to return to the ED for re assessment if your symptoms are worsening or you have new concerns Print Language: Bulgarian Coding Level of Care Code ED Brush Trimming Machine Setter for Phillip Flores
[2024-09-24 14:02] LABS: Basophils % 0.7 %; Eosinophils # 0.1 10^3/uL (0.0-0.8); Hematocrit 34.2 % (36-47); Lymphocytes # 1.3 10^3/uL (0.8-4.8); Lymphocytes % 21.7 %; Mean Corpuscular HGB Conc 32.5 g/dL (30-55); Mean Corpuscular Volume 86.4 fl (85-98); Mean Platelet Volume 9.1 fL (7.4-10.4); Monocytes # 0.4 10^3/uL (0.2-0.9); Monocytes % 7.1 %; Neutrophils # 4.03 10^3/uL (1.8-7.7); Neutrophils % 68.3 %; Nucleated Red Blood Cells % 0 %; Platelet Count 313 10^3/cmm (157-399); Red Blood Count 3.96 10^6/uL (3.85-5.65); Red Cell Distribution Width 18.4 % (12.1-15.1)
--- NOTE | 2024-09-24 14:06 | PHA.FALL ---
A Pharmacy Consult Was Conducted For Karina Leija Due To: Mcclure Fall Scale Risk Level: Low Fall Risk On 09/24/24 13:33 And A Medication Fall Risk Score Greater Than 10. The Recommendations Are As Follows:Pt's
--- NOTE | 2024-09-24 14:06 | PC.PHAR ---
Pts' sister, More [phone], takes care of her medications and sets them up in her pill office workforce planner. Pt took all meds yesterday but has taken nothing today.
--- NOTE | 2024-09-24 14:10 | CT_ITS ---
WS: [id number] CT HEAD NONCONTRAST HISTORY: possible seizure TECHNIQUE: Contiguous axial imaging performed through the brain. Bone and soft tissue windows. Sagittal and coronal reformats reviewed. All CT scans at [facility] use at least one of these dose optimization techniques: automated exposure control; mA and/or kV adjustment per patient size (includes targeted exams where dose is matched to clinical indication); or iterative reconstruction. DLP: 978.78 mGy.cm COMPARISON: 04/24/2023 No acute intracranial hemorrhage, midline shift or mass effect. Mild atrophy and minimal small vessel disease. No prior infarct. Ventricles: Normal size with no hydrocephalus. No inferior displacement of the cerebellar tonsils. Paranasal sinuses: As visualized are clear. Mastoid air cells: Well pneumatized. Calvarium and scalp: Skull is intact with no soft tissue edema or swelling. Mild intracranial carotid artery calcification. CT/CT head wo con* [id number] IMPRESSION: 1. Stable noncontrast head CT since 04/24/2023. 2. No acute intracranial hemorrhage or edema. 3. Mild cerebral atrophy.
[2024-09-24 14:17] LABS: Lactic Sepsis W/Reflex 0.8 mmol/L (0.5-2.2)
[2024-09-24 14:18] LABS: Alanine Aminotransferase 15 U/L (0-33); Albumin Level 3.8 g/dL (3.5-5.2); Alkaline Phosphatase 131 U/L (35-105); Anion Gap 11.8 (5-19); Aspartate Amino Transferase 22 U/L (0-32); Blood Urea Nitrogen 15 mg/dL (8-23); C Reactive Protein 4.1 mg/L (0.0-4.9); Calcium 8.7 mg/dL (8.5-10.5); Carbon Dioxide 29 mmol/L (22-29); Chloride 94 mmol/L (98-107); Creatinine Clr Calc Pharmacy 49.3357; Globulin 2.9 g/dL (1.3-4.6); Glucose 112 mg/dL (65-115); Osmolality Calculated 274 mOsm/kg (285-295); Potassium 3.8 mmol/L (3.5-5.1); Sodium 131 mmol/L (136-145); Total Bilirubin 0.3 mg/dL (0.15-1.2); Total Protein 6.7 g/dL (6.6-8.7)
[2024-09-24 14:29] VITALS: BP 106/58; PULSE 68; O2SAT 97
[2024-09-24 14:30] VITALS: BP 128/54; RESP 71; O2SAT 95
[2024-09-24 14:39] LABS: Bilirubin Urine Negative (Negative); Blood Urine Negative (Negative); Glucose Urine UA Negative (Normal); Ketones Urine Negative (Negative); Leukocyte Esterase Urine Negative (Negative); Nitrate Urine Negative (Negative); Protein Urine Negative (Negative); Specific Gravity, Urine 1.014 (1.005-1.030); Urine Appearance Clear (CLEAR); Urine Color Yellow (Yellow); Urobilinogen Urine 0.2 mg/dL (Negative)
[2024-09-24 14:41] LABS: Bacteria Urine 2+ /hpf; Squamous Epithelial Cell Urine 0-5 /hpf (0-5); WBC Urine 0-5 /hpf (0-5)
[2024-09-24] MEDS: cefTRIAXone 1,000 mg SDV 1000 MG IVP (15:03)
[2024-09-24 15:04] VITALS: BP 134/52; PULSE 76; O2SAT 95
[2024-09-24 16:00] VITALS: BP 127/64; PULSE 75; O2SAT 94
[2024-09-24 16:03] LABS: Influenza A NEGATIVE (Negative); Influenza B NEGATIVE (Negative); Respiratory Syncytial Virus Ce NEGATIVE (Negative); SARS-CoV-2 PCR NEGATIVE (Negative)
[2024-09-24 16:21] VITALS: BP 127/64; PULSE 76; O2SAT 94
[2024-09-25 10:04] LABS: Staphylococcus species Detected (NOT DETECT)
--- NOTE | 2024-09-25 18:31 | PC.NURSE ---
Dr. De Luna notified of blood culture results. Dr. De Luna requested nurse call and check on pt status. Unable to reach pt via phone. Pt sister, More [place] contacted via phone, she stated pt is feeling much better, denies fever, and is taking prescription. Dr. De Luna notified, no further orders.
== END 2024-09-24 16:22 | disposition home or self-care (01) ==
PROVIDERS: Emergency Provider Emergency Medicine; PCP Electrodiagnostic Medicine
DX: R68.89 Other general symptoms and signs (principal); N39.0 Urinary tract infection, site not specified; Z11.52 Encounter for screening for COVID-19; Z79.01 Long term (current) use of anticoagulants; Z79.02 Long term (current) use of antithrombotics/antiplatelets; Z87.891 Personal history of nicotine dependence; I25.10 Atherosclerotic heart disease of native coronary artery without angina pectoris; E78.5 Hyperlipidemia, unspecified; Z85.3 Personal history of malignant neoplasm of breast; I10 Essential (primary) hypertension
CPT/HCPCS: 36415; 70450; 71045; 80053; 81001; 83605; 85025; 86140; 87040; 87150; 87205; 87637; 96374; 99285; J0696

== ENCOUNTER → 2024-10-08 09:20 | Outpatient (BNVA) | payer MEDICARE, SELFPAY | PROVIDERS: PCP Electrodiagnostic Medicine; Visit Provider Nurse Practitioner Family | DX: R07.82 Intercostal pain (principal); I35.0 Nonrheumatic aortic (valve) stenosis; I83.11 Varicose veins of right lower extremity with inflammation; I83.12 Varicose veins of left lower extremity with inflammation; I35.1 Nonrheumatic aortic (valve) insufficiency; Z79.01 Long term (current) use of anticoagulants; Z95.5 Presence of coronary angioplasty implant and graft; Z87.891 Personal history of nicotine dependence; I25.110 Atherosclerotic heart disease of native coronary artery with unstable angina pectoris | CPT/HCPCS: 93005; 99214 ==

== ENCOUNTER 2024-11-18 06:46 | Oncology outpatient (recurring) (ONCR) | payer MEDICARE, SELFPAY ==
--- NOTE | 2024-11-18 07:00 | USCV_ITS ---
Karina Leija Age: 74 Gender: F : 1950 Exam Date: 11/18/2024 07:07 Ordering Phys: Khushboo Randhawa NP Technologist: [place] [facility] [place]: as BP: 138 / 70 HR: 64 Rhythm: Sinus Technical Quality: Adequate MEASUREMENTS (Male / Female) Normal Values 2D ECHO LV Diastolic Diameter PLAX 4.6 cm 4.2 - 5.9 / 3.9 - 5.3 cm IVS Diastolic Thickness 0.9 cm 0.6 - 1.0 / 0.6 - 0.9 cm IVS Systolic Thickness 1.8 cm LVPW Diastolic Thickness 1.2 cm 0.6 - 1.0 / 0.6 - 0.9 cm LVPW Systolic Thickness 1.4 cm LVOT Diameter 2.0 cm LV Ejection Fraction 2D Teich 71.9 % LV Ejection Fraction MOD 4C 61.1 % LV Ejection Fraction MOD 2C 67.3 % LV Ejection Fraction 2C AL 67.4 % LA Diameter 3.6 cm RA Systolic Volume 4C AL 53.8 ml RA Systolic Volume 4C MOD 47.3 ml Aorta at Sinotubular Diameter 2.7 cm IVC Diameter 1.7 cm M-MODE LA Ao Ratio MM 1.3 AV Cusp Separation MM 1.2 cm DOPPLER AV Peak Velocity 331.8 cm/s AV Area Cont Eq vti 1.5 cm squared AV Area Cont Eq pk 1.2 cm squared MV Peak Velocity 181.0 cm/s MV Area PHT 3.3 cm squared Mitral E to A Ratio 0.8 TV Peak Velocity 276.0 cm/s TR Peak Velocity 334.0 cm/s TR Peak Gradient 44.6 mmHg PV Peak Velocity 130.0 cm/s FINDINGS Left Ventricle Left ankle is normal in size. LV systolic function is normal with EF of 55 to 60%. No regional wall motion normalities are seen. Grade 1 diastolic dysfunction. Right Ventricle Normal in size and function Right Atrium Normal in size Left Atrium Normal in size Mitral Valve Mild mitral annular calcification. Mild mitral regurgitation Aortic Valve Aortic valve is thickened and calcified. Moderate aortic regurgitation. Mild aortic stenosis with aortic valve area of 1.5 cm squared and mean gradient of 15 mmHg. Tricuspid Valve Mild tricuspid regurgitation. RVSP is 40 to 45 mmHg. This is consistent with mild pulmonary hypertension. Pulmonic Valve Not well visualized Pericardium Normal Aorta Normal in size IVC Appears to be normal CONCLUSIONS LV systolic function is normal with EF of 55-60%. Grade 1 diastolic dysfunction. Mild mitral regurgitation. Moderate aortic regurgitation. Mild aortic stenosis Mild tricuspid regurgitation Mild pulmonary hypertension Compared to prior echocardiogram from 2023, no significant changes are seen Dutch Enciso MD (Electronically Signed) Final Date: 04 December 2024 09:36 S
== END 2024-11-25 23:59 | disposition home or self-care (01) ==
LOC: ONCMED 06:47 → RAD 06:47 → ONCMED 09:18
PROVIDERS: PCP Electrodiagnostic Medicine; Visit Provider Internal Medicine Medical Oncology
DX: Z53.9 Procedure and treatment not carried out, unspecified reason (principal); Z08 Encounter for follow-up examination after completed treatment for malignant neoplasm; Z85.3 Personal history of malignant neoplasm of breast; D50.9 Iron deficiency anemia, unspecified; M85.80 Other specified disorders of bone density and structure, unspecified site; Z87.891 Personal history of nicotine dependence; Z92.21 Personal history of antineoplastic chemotherapy; Z90.11 Acquired absence of right breast and nipple; L03.113 Cellulitis of right upper limb; Z79.899 Other long term (current) drug therapy; I73.9 Peripheral vascular disease, unspecified; R10.9 Unspecified abdominal pain; I25.110 Atherosclerotic heart disease of native coronary artery with unstable angina pectoris; I35.1 Nonrheumatic aortic (valve) insufficiency
CPT/HCPCS: 93306

== ENCOUNTER → 2024-12-02 13:39 | Outpatient (BNVA) | payer MEDICARE, SELFPAY | PROVIDERS: PCP Electrodiagnostic Medicine; Visit Provider Nurse Practitioner Family | DX: I25.118 Atherosclerotic heart disease of native coronary artery with other forms of angina pectoris (principal); I35.0 Nonrheumatic aortic (valve) stenosis; I35.1 Nonrheumatic aortic (valve) insufficiency; Z79.01 Long term (current) use of anticoagulants; Z86.73 Personal history of transient ischemic attack (TIA), and cerebral infarction without residual deficits; Z87.891 Personal history of nicotine dependence | CPT/HCPCS: 99214 ==

== ENCOUNTER 2025-03-10 12:00 | Oncology outpatient (recurring) (ONCR) | payer MEDICARE, SELFPAY ==
[2025-03-03 12:01] LABS: Hematocrit 27.5 % (36-47); Hemoglobin 8.60 g/dL (11.27-16.99); Mean Corpuscular HGB Conc 31.3 g/dL (30-55); Mean Corpuscular Hemoglobin 31.5 pg (27-33); Mean Corpuscular Volume 100.7 fl (85-98); Nucleated Red Blood Cells % 0 %; Platelet Count 357 10^3/cmm (157-399); Red Blood Count 2.73 10^6/uL (3.85-5.65); White Blood Count 4.35 10^3/uL (3.29-11.43)
[2025-03-03 12:25] LABS: Alanine Aminotransferase 18 U/L (0-33); Albumin Level 4.1 g/dL (3.5-5.2); Alkaline Phosphatase 122 U/L (35-105); Anion Gap 15.0 (5-19); Aspartate Amino Transferase 22 U/L (0-32); Blood Urea Nitrogen 10 mg/dL (8-23); Calcium 8.8 mg/dL (8.5-10.5); Carbon Dioxide 26 mmol/L (22-29); Chloride 99 mmol/L (98-107); Creatinine Clr Calc Pharmacy 40.6955; Ferritin 57 ng/mL (15-150); Globulin 2.4 g/dL (1.3-4.6); Glucose 99 mg/dL (65-115); Iron 26 ug/dL (37-145); Osmolality Calculated 281 mOsm/kg (285-295); Potassium 4.0 mmol/L (3.5-5.1); Sodium 136 mmol/L (136-145); Total Iron Binding Capacity 258 mcg/dl; Total Protein 6.5 g/dL (6.6-8.7); Unsaturated Iron Binding 232 ug/dL (112-347)
[2025-03-03 12:38] LABS: Vitamin B12 1796 pg/mL (232-1245)
[2025-03-10] MEDS: ferric derisomaltose 1,000 MG in sodium chloride 0.9% (100 ml) 100 ML 330 MG IV (12:23)
[2025-03-10 12:54] VITALS: BP 139/57; PULSE 73; RESP 17; TEMP 36.3; O2SAT 95
== END 2025-03-28 23:59 | disposition home or self-care (01) ==
PROVIDERS: PCP Electrodiagnostic Medicine; Visit Provider Internal Medicine Medical Oncology
DX: Z53.9 Procedure and treatment not carried out, unspecified reason; D50.9 Iron deficiency anemia, unspecified; Z79.899 Other long term (current) drug therapy
CPT/HCPCS: 36415; 80053; 82607; 82728; 82746; 83540; 83550; 85025; 96365; 99214; J1437

== ENCOUNTER 2025-04-21 11:55 | Oncology outpatient (recurring) (ONCR) | payer MEDICARE, SELFPAY ==
[2025-04-21 12:11] LABS: Hematocrit 36.3 % (36-47); Hemoglobin 12.40 g/dL (11.27-16.99); Mean Corpuscular HGB Conc 34.2 g/dL (30-55); Mean Corpuscular Hemoglobin 32.1 pg (27-33); Mean Corpuscular Volume 94.0 fl (85-98); Nucleated Red Blood Cells % 0 %; Platelet Count 304 10^3/cmm (157-399); Red Blood Count 3.86 10^6/uL (3.85-5.65); White Blood Count 7.74 10^3/uL (3.29-11.43)
[2025-04-21 12:32] LABS: Alanine Aminotransferase 24 U/L (0-33); Albumin Level 4.1 g/dL (3.5-5.2); Alkaline Phosphatase 113 U/L (35-105); Anion Gap 12.8 (5-19); Aspartate Amino Transferase 24 U/L (0-32); Blood Urea Nitrogen 15 mg/dL (8-23); Calcium 9.0 mg/dL (8.5-10.5); Carbon Dioxide 27 mmol/L (22-29); Chloride 93 mmol/L (98-107); Ferritin 218 ng/mL (15-150); Globulin 2.5 g/dL (1.3-4.6); Glucose 120 mg/dL (65-115); Iron 60 ug/dL (37-145); Osmolality Calculated 270 mOsm/kg (285-295); Potassium 3.8 mmol/L (3.5-5.1); Sodium 129 mmol/L (136-145); Total Iron Binding Capacity 196 mcg/dl; Total Protein 6.6 g/dL (6.6-8.7); Unsaturated Iron Binding 136 ug/dL (112-347)
[2025-04-21 12:48] LABS: Vitamin B12 1506 pg/mL (232-1245)
== END 2025-04-27 23:59 | disposition home or self-care (01) ==
PROVIDERS: PCP Electrodiagnostic Medicine; Visit Provider Internal Medicine Medical Oncology
DX: Z08 Encounter for follow-up examination after completed treatment for malignant neoplasm (principal); Z85.3 Personal history of malignant neoplasm of breast; D50.9 Iron deficiency anemia, unspecified; R03.0 Elevated blood-pressure reading, without diagnosis of hypertension; Z87.891 Personal history of nicotine dependence; Z92.21 Personal history of antineoplastic chemotherapy; Z90.11 Acquired absence of right breast and nipple
CPT/HCPCS: 36415; 80053; 82607; 82728; 82746; 83540; 83550; 85025; 99213

== ENCOUNTER → 2025-04-28 13:42 | Outpatient (BNVA) | payer MEDICARE, SELFPAY | PROVIDERS: PCP Electrodiagnostic Medicine; Visit Provider Internal Medicine Cardiovascular Disease | DX: I35.0 Nonrheumatic aortic (valve) stenosis (principal); R07.9 Chest pain, unspecified; G89.29 Other chronic pain; Z87.891 Personal history of nicotine dependence | CPT/HCPCS: 99214 ==

== ENCOUNTER 2025-04-30 12:46 | Oncology outpatient (recurring) (ONCR) | payer MEDICARE, SELFPAY ==
--- NOTE | 2025-04-30 12:45 | MM_ITS ---
WS: [id number] LEFT 3D TOMOSYNTHESIS DIGITAL MAMMOGRAPHY WITH CAD CLINICAL INFORMATION: hx of rt breast ca HISTORY: History of RIGHT breast cancer COMPARISON: 2022 TECHNIQUE: 3 views of the left breast were obtained. FINDINGS: The left breast is composed of heterogeneous fibroglandular density tissue, which can limit the detection of small underlying mass lesions. Vascular calcification. Stable nodular densities posterior LEFT breast. No suspicious focal mass, asymmetry, calcifications, or architectural distortion. No evidence of malignancy. A few incidental punctate calcifications. MM/MM diag LT tomosynthesis [id number] IMPRESSION: DENSITY: There are scattered areas of fibroglandular density. BI-RADS: 2 - Benign. FOLLOW UP: 1 Year Follow-up Recommend return to annual diagnostic mammography.
== END 2025-05-28 23:59 | disposition home or self-care (01) ==
PROVIDERS: PCP Electrodiagnostic Medicine; Visit Provider Internal Medicine Medical Oncology
DX: C50.811 Malignant neoplasm of overlapping sites of right female breast (principal); R92.323 Mammographic fibroglandular density, bilateral breasts; I70.90 Unspecified atherosclerosis; R92.1 Mammographic calcification found on diagnostic imaging of breast
CPT/HCPCS: 77061; 77063

== ENCOUNTER 2025-05-06 12:16 | Emergency (ER) | payer MEDICARE, SELFPAY ==
[2025-05-06 12:18] VITALS: BP 119/64; PULSE 74; RESP 16; TEMP 36.8; O2SAT 94; BMI 33.5
--- NOTE | 2025-05-06 12:23 | CT_ITS ---
WS: [id number] CT HEAD NONCONTRAST HISTORY: fall TECHNIQUE: Contiguous axial imaging performed through the brain. Bone and soft tissue windows. Sagittal and coronal reformats reviewed. All CT scans at [facility] use at least one of these dose optimization techniques: automated exposure control; mA and/or kV adjustment per patient size (includes targeted exams where dose is matched to clinical indication); or iterative reconstruction. DLP: 1008.58 mGy.cm COMPARISON: 09/24/2024 No acute intracranial hemorrhage, midline shift or mass effect. Mild atrophy and small vessel changes. No prior infarct. Ventricles: Normal size with no hydrocephalus. Paranasal sinuses: As visualized are clear. Mastoid air cells: Well pneumatized. Calvarium and scalp: Skull is intact with no soft tissue edema or swelling. CT/CT head wo con* [id number] IMPRESSION: 1. No acute intracranial hemorrhage or edema. 2. Stable noncontrast head CT since 09/24/2024.
[2025-05-06 12:24] VITALS: BP 131/66; PULSE 71; O2SAT 95
--- NOTE | 2025-05-06 12:41 | W.ED.FALL ---
HPI - Fall General: Chief Complaint: Fall Stated Complaint: Fall Time Seen by Provider: 05/06/25 12:21 Source: patient and EMS Mode of arrival: EMS Limitations: no limitations History of Present Illness: 75-year-old female states she had had a fall in her bathroom today and was having a hard time getting up. States she did hit her head. Had some increased weakness states she has also upped her dose of Seroquel as well. She denies any vomiting or diarrhea denies any severe pain currently. Related Data Home Medications ?Medication ?Instructions ?Recorded ?Confirmed docusate sodium 100 mg capsule 100 mg PO BID 06/10/19 05/06/25 (Colace) calcium 600 mg (as 1 cap PO DAILY@20 12/16/19 05/06/25 carbonate)-vitamin D3 12.5 mcg (500 unit) capsule (Calcium with Vit D3) metoprolol tartrate 25 mg tablet 12.5 mg PO BID 03/30/21 05/06/25 pantoprazole 40 mg tablet,delayed 40 mg PO QAM 03/30/21 05/06/25 release hydrocodone 5 mg-acetaminophen 325 1 tab PO BID PRN Pain 08/17/22 05/06/25 mg tablet ascorbic acid (vitamin C) 500 mg 250 mg PO DAILY 01/11/24 05/06/25 tablet cholecalciferol (vitamin D3) 25 25 mcg PO DAILY 01/11/24 05/06/25 mcg (1,000 unit) capsule [id number] 4 mg-folic acid 1 tab PO DAILY 01/11/24 05/06/25 200 mcg-vit K 25 mcg-lutein tablet (Centrum Minis Women 50 Plus) sucralfate 1 gram tablet 1 g PO TID PRN Stomach Upset 01/11/24 05/06/25 clopidogrel 75 mg tablet 75 mg PO DAILY 09/24/24 05/06/25 fluticasone fur. 200 mcg-umeclid 1 inh inhalation DAILY 09/24/24 05/06/25 62.5 mcg-vilant 25 mcg inhalat.powder (Trelegy Ellipta) levetiracetam 750 mg tablet 750 mg PO BID 09/24/24 05/06/25 ropinirole 1 mg tablet 1 mg PO QPM 09/24/24 05/06/25 vitamin B complex 1 tab PO DAILY 09/24/24 05/06/25 quetiapine 100 mg tablet (Seroquel) 100 mg PO BID 04/28/25 05/06/25 atorvastatin 80 mg tablet 80 mg PO DAILY 05/06/25 05/06/25 quetiapine 50 mg tablet 50 mg PO BID 05/06/25 05/06/25 Previous Rx's ?Medication ?Instructions ?Recorded nitroglycerin 0.4 mg sublingual 0.4 mg sublingual Q5M PRN chest 09/13/21 tablet pain #30 tabs hydrochlorothiazide 12.5 mg tablet 12.5 mg PO DAILY PRN edema #90 tabs 01/09/23 apixaban 5 mg tablet (Eliquis) 5 mg PO BID #180 tabs 11/06/24 ranolazine 500 mg tablet,extended 500 mg PO BID #180 tabs 11/11/24 release,12 hr ferrous gluconate 324 mg (37.5 mg 324 mg PO DAILY #30 tabs 02/04/25 iron) tablet Allergies Allergy/AdvReac Type Severity Reaction Status Date / Time No Known Allergies Allergy Verified 05/06/25 12:24 [facility] ED PFSH: Medical History (Updated 05/06/25 @ 14:39 by Daren Valdez MD) Malignant neoplasm of overlapping sites of right female breast Varicose vein of leg Obesity HLD (hyperlipidemia) Aortic stenosis, mild Stable Angina pectoris Status post PCI to diagonal branch. No more angina CAD (coronary artery disease), [place] coronary artery Primary osteoarthritis of both hips Surgical History Hx of hysterectomy Hx of appendectomy Hx of right mastectomy History of total hip arthroplasty Family History Grandmother CAD (coronary artery disease) Hypertension Father CAD (coronary artery disease) Cancer Diabetes Hypertension Lung disease Mother Cancer Dementia Diabetes Hypertension Daughter Chronic kidney disease (CKD) eldest Hypertension Daughter Chronic kidney disease (CKD) third child Sister Hyperlipidemia all sisters Hypertension Lung disease Unknown Suicide maternal aunt-GSW- mid 40s Social History Smoking and tobacco/nicotine status: former use of tobacco/nicotine Quit status (tobacco/nicotine): has quit using Year quit tobacco: 2017 Second hand smoke exposure: Yes Alcohol intake: never Substance/Drug Use: never Physical Exam Const: COMMON NORMALS: patient oriented x3 HENMT: COMMON NORMALS: normocephalic and atraumatic HEAD & SCALP: normocephalic and atraumatic Eye: COMMON NORMALS: Equal, round and reactive pupils present and EOMs intact bilaterally PUPIL: Yes Equal, round and reactive pupils present Neck/C-Spine: COMMON NORMALS: full ROM and supple Chest: COMMONS NORMALS: normal inspection of the chest and normal palpation of entire chest wall Resp: COMMON NORMALS: normal respiratory effort, No retractions, No use of accessory muscles and clear to auscultation bilaterally AUSCULTATION: clear to auscultation bilaterally Cardio: COMMON NORMALS: regular rate, regular rhythm and No murmurs present (Cardio) RATE: regular rate RHYTHM: regular rhythm GI: COMMON NORMALS: Normal to inspection, nondistended, normoactive bowel sounds present, Soft to palpation, non-tender and no masses PALPATION: Yes Soft to palpation Extremity: COMMON NORMALS: normal to inspection and full ROM Neuro: COMMON NORMALS: patient oriented x3, moves all extremities and no focal motor deficits Psych: COMMON NORMALS: mental status grossly normal, Normal thought process present and cooperative THOUGHT PROCESS: Normal thought process present Skin: COMMON NORMALS: no rashes or lesions noted and no wounds GENERAL SKIN EXAM: no rashes or lesions noted Course Vital Signs: Vital signs: Vital Signs Temperature 98.2 F 05/06/25 12:18 Pulse Rate 71 05/06/25 12:24 Respiratory Rate 16 05/06/25 12:18 Blood Pressure 131/66 05/06/25 12:24 Pulse Oximetry 95 05/06/25 12:24 Oxygen Delivery Me thod Room Air 05/06/25 12:18 MDM - Fall Medical Decision Making Patient presents here after a fall at home with some generalized weakness. Differential includes anemia, infection, CVA. She has no focal deficits here no signs of stroke head CT here was negative. Blood work here showed no significant abnormalities no signs of anemia her vitals here been normal she was able to ambulate here with a walker does use a walker at home. I feel she is stable for discharge follow-up with PCP return if worsening I went over all her findings with her she understands agrees to plan Medical Records I reviewed the patient's medical records. Lab Data I reviewed the patient's lab results. 05/06/25 12:47 05/06/25 12:[address] 05/06/25 12:23 IMPRESSION: 1. No acute intracranial hemorrhage or edema. 2. Stable noncontrast head CT since 09/24/2024. Chest X-Ray 05/06/25 12:59 IMPRESSION: Stable chest without acute abnormality. Laboratory Results WBC 5.52 10^3/uL (3.29-11.43) 05/06/25 12:47 RBC 3.47 10^6/uL (3.85-5.65) L 05/06/25 12:47 Hgb 10.90 g/dL (11.27-16.99) L 05/06/25 12:47 Hct 33.9 % (36-47) L 05/06/25 12:47 MCV 97.7 fl (85-98) 05/06/25 12:47 MCH 31.4 pg (27-33) 05/06/25 12:47 MCHC 32.2 g/dL (30-55) 05/06/25 12:47 RDW 14.6 % (12.1-15.1) 05/06/25 12:47 Plt Count 259 10^3/cmm (157-399) 05/06/25 12:47 MPV 9.1 fL (7.4-10.4) 05/06/25 12:47 Neut % (Auto) 77.3 % 05/06/25 12:47 Lymph % (Auto) 13.9 % 05/06/25 12:47 [place] % (Auto) 6.3 % 05/06/25 12:47 Eos % (Auto) 1.8 % 05/06/25 12:47 Baso % (Auto) 0.5 % 05/06/25 12:47 Neut # (Auto) 4.26 10^3/uL (1.8-7.7) 05/06/25 12:47 Lymph # (Auto) 0.8 10^3/uL (0.8-4.8) 05/06/25 12:47 [place] # (Auto) 0.4 10^3/uL (0.2-0.9) 05/06/25 12:47 Eos # (Auto) 0.1 10^3/uL (0.0-0.8) 05/06/25 12:47 Baso # (Auto) 0.0 10^3/uL (0.0-0.1) 05/06/25 12:47 Nucleated RBC % (auto) 0 % 05/06/25 12:47 Nucleated RBCs # 0.0 /100WBC 05/06/25 12:47 Sodium 134 mmol/L (136-145) L 05/06/25 12:47 Potassium 3.7 mmol/L (3.5-5.1) 05/06/25 12:47 Chloride 98 mmol/L (98-107) 05/06/25 12:47 Carbon Dioxide 24 mmol/L (22-29) 05/06/25 12:47 Anion Gap 15.7 (5-19) 05/06/25 12:47 BUN 18 mg/dL (8-23) 05/06/25 12:47 Creatinine 1.2 mg/dL (0.5-0.9) H 05/06/25 12:47 GFR Calculation Not Reportable 05/06/25 12:47 Glucose 108 mg/dL (65-115) 05/06/25 12:47 Calculated Osmolality 280 mOsm/kg (285-295) L 05/06/25 12:47 Calcium 9.0 mg/dL (8.5-10.5) 05/06/25 12:47 Total Bilirubin 0.6 mg/dL (0.15-1.2) 05/06/25 12:47 AST 21 U/L (0-32) 05/06/25 12:47 ALT 19 U/L (0-33) 05/06/25 12:47 Alkaline Phosphatase 100 U/L (35-105) 05/06/25 12:47 Total Protein 6.4 g/dL (6.6-8.7) L 05/06/25 12:47 Albumin 3.8 g/dL (3.5-5.2) 05/06/25 12:47 Globulin 2.6 g/dL (1.3-4.6) 05/06/25 12:47 TSH 1.43 uIU/mL (0.27-4.20) 05/06/25 12:47 Urine Color Yellow (Yellow) 05/06/25 13:07 Urine Appearance Clear (CLEAR) 05/06/25 13:07 Urine pH 6.5 (5-7) 05/06/25 13:07 Ur Specific [place] 1.019 (1.005-1.030) 05/06/25 13:07 Urine Protein Negative (Negative) 05/06/25 13:07 Urine Glucose (UA) Negative (Normal) 05/06/25 13:07 Urine Ketones Negative (Negative) 05/06/25 13:07 Urine Blood Negative (Negative) 05/06/25 13:07 Urine Nitrate Negative (Negative) 05/06/25 13:07 Urine Bilirubin Negative (Negative) 05/06/25 13:07 Urine Urobilinogen 1.0 mg/dL (Negative) 05/06/25 13:07 Ur Leukocyte Esterase Trace (Negative) A 05/06/25 13:07 Urine RBC 0-2 /hpf (0-2) 05/06/25 13:07 Urine WBC 0-5 /hpf (0-5) 05/06/25 13:07 Ur Squamous Epith Cells 0-5 /hpf (0-5) 05/06/25 13:07 Amorphous Sediment Not Reportable 05/06/25 13:07 Urine Bacteria None seen /hpf (NONE) 05/06/25 13:07 Hyaline Casts 0.81 /lpf 05/06/25 13:07 All radiology interpretation(s) finalized by discharge Discharge Plan Discharge Patient Disposition: Home Clinical Impression: Fall Condition: Stable Prescriptions: No Action docusate sodium [Colace] 100 mg capsule 100 mg PO BID calcium carbonate-vitamin D3 [Calcium 600 with Vitamin D3] 600 mg(1,500mg) -500 unit capsule 1 cap PO DAILY@20 hydrochlorothiazide 12.5 mg tablet 12.5 mg PO DAILY PRN (Reason: edema) Qty: 90 0RF cholecalciferol (vitamin D3) 25 mcg (1,000 unit) capsule 25 mcg PO DAILY ascorbic acid (vitamin C) 500 mg tablet 250 mg PO DAILY Centrum Minis Women 50 Plus 4 mg iron-200 mcg-25 mcg tablet 1 tab PO DAILY sucralfate 1 gram tablet 1 g PO TID PRN (Reason: Stomach Upset) nitroglycerin 0.4 mg tablet, sublingual 0.4 mg SUBLINGUAL Q5M PRN (Reason: chest pain) Qty: 30 2RF Rx Instructions: until response; do not exceed 3 doses per episode Eliquis 5 mg tablet 5 mg PO BID Qty: 180 3RF ranolazine 500 mg tablet extended release 12 hr 500 mg PO BID Qty: 180 3RF ferrous gluconate 324 mg (37.5 mg iron) tablet 324 mg PO DAILY Qty: 30 6RF metoprolol tartrate 25 mg tablet 12.5 mg PO BID pantoprazole 40 mg tablet,delayed release (DR/EC) 40 mg PO QAM atorvastatin 80 mg tablet 80 mg PO DAILY quetiapine 50 mg tablet 50 mg PO BID Rx Instructions: Take with the !00 mg Quetiapine twice daily . hydrocodone-acetaminophen 5-325 mg tablet 1 tab PO BID PRN (Reason: Pain) quetiapine [Seroquel] 100 mg tablet 100 mg PO BID Rx Instructions: Night and morning ropinirole 1 mg tablet 1 mg PO QPM levetiracetam 750 mg tablet 750 mg PO BID clopidogrel 75 mg tablet 75 mg PO DAILY Trelegy Ellipta 200-62.5-25 mcg blister with device 1 inh INHALATION DAILY vitamin B complex Tablet 1 tab PO DAILY Discharge Orders: Discharge ED (Routine); Ordered 05/06/25 Ordered By: Daren Valdez Referrals: Justin Chapman DO [Primary Care Provider, Family Practice] Discharge Diet: Advance as tolerated Discharge Activity: Resume usual activity Patient Instructions: Fall Prevention (ED) Print Language: Barbadian Coding Level of Care Code ED [employer] for Phillip Flores
[2025-05-06 12:53] LABS: Hematocrit 33.9 % (36-47); Hemoglobin 10.90 g/dL (11.27-16.99); Mean Corpuscular HGB Conc 32.2 g/dL (30-55); Mean Corpuscular Hemoglobin 31.4 pg (27-33); Mean Corpuscular Volume 97.7 fl (85-98); Nucleated Red Blood Cells % 0 %; Platelet Count 259 10^3/cmm (157-399); Red Blood Count 3.47 10^6/uL (3.85-5.65); White Blood Count 5.52 10^3/uL (3.29-11.43)
--- NOTE | 2025-05-06 12:59 | XR_ITS ---
WS: [id number] XR chest 1V portable [id number] REASON FOR EXAM: weakness FINDINGS: Chest is unchanged compared to 09/24/2024. Moderate tortuosity and ectasia of the thoracic aorta. The heart is mildly enlarged. Elevation of the left hemidiaphragm with tenting laterally. Calcified granulomatous disease bilaterally. No acute pulmonary parenchymal or pleural abnormality is identified. XR/XR chest 1V portable [id number] IMPRESSION: Stable chest without acute abnormality.
[2025-05-06 13:10] LABS: Alanine Aminotransferase 19 U/L (0-33); Albumin Level 3.8 g/dL (3.5-5.2); Alkaline Phosphatase 100 U/L (35-105); Anion Gap 15.7 (5-19); Aspartate Amino Transferase 21 U/L (0-32); Blood Urea Nitrogen 18 mg/dL (8-23); Calcium 9.0 mg/dL (8.5-10.5); Carbon Dioxide 24 mmol/L (22-29); Chloride 98 mmol/L (98-107); Globulin 2.6 g/dL (1.3-4.6); Glucose 108 mg/dL (65-115); Osmolality Calculated 280 mOsm/kg (285-295); Potassium 3.7 mmol/L (3.5-5.1); Sodium 134 mmol/L (136-145); Total Protein 6.4 g/dL (6.6-8.7)
[2025-05-06 13:27] LABS: Glucose Urine UA Negative (Normal); Nitrate Urine Negative (Negative); Specific Gravity, Urine 1.019 (1.005-1.030)
[2025-05-06 13:32] LABS: Add Urine Microscopic? YES; Universal Test for UA Present (0)
[2025-05-06 13:38] LABS: Thyroid Stimulating Hormone 1.43 uIU/mL (0.27-4.20)
[2025-05-06 13:47] LABS: UA Slide Review UA Slide Review Perf
[2025-05-06 15:07] VITALS: BP 145/84; PULSE 76; O2SAT 94
== END 2025-05-06 15:08 | disposition home or self-care (01) ==
PROVIDERS: Emergency Provider Emergency Medicine; PCP Electrodiagnostic Medicine
DX: Z04.3 Encounter for examination and observation following other accident (principal); Z79.01 Long term (current) use of anticoagulants; Z79.02 Long term (current) use of antithrombotics/antiplatelets; Z87.891 Personal history of nicotine dependence; E78.5 Hyperlipidemia, unspecified; I25.10 Atherosclerotic heart disease of native coronary artery without angina pectoris; Z85.3 Personal history of malignant neoplasm of breast
CPT/HCPCS: 36415; 70450; 71045; 80053; 81001; 84443; 85025; 99284

== ENCOUNTER 2025-05-18 23:09 | Emergency (ER) | payer MEDICARE, SELFPAY ==
[2025-05-18 23:05] VITALS: BMI 32.9
[2025-05-18 23:07] VITALS: BP 126/53; PULSE 67; RESP 18; TEMP 36.6; O2SAT 96
--- OUTSIDE RECORDS SUMMARY | 2025-05-18 23:25 | XMS_ITS | Encounter Summary ---
Author Organization [facility] Address [address] [place] [address] Care Team Providers Care Parachute Harness Rigger Name Role Phone Non-Staff, Physician Primary Care Provider Unava ilable Reason for Referral * Outpatient Services (Routine) - Closed Specialty Diagnoses / Procedures Referred By Jayden rivera Referred To Contact Radiology Diagnoses Abnormal mammogram Procedures MAMMO POST US/STEREO GUIDED PROCEDURE RT Leanne Ruiz FNP [address] [place] [phone] Phone: tel: fax: [address] [address] Phone: tel: fax: Referral ID Status Reason Start Date Expiration Date Visits Requested Visits Authorized [id number] Closed Performing Department To Schedule (SGF) 07/20/2015 08/19/2016 1 1 ENT GRINDER * Outpatient Services (Routine) - Closed Specialty Diagnoses / Procedures Referred By Jayden rivera Referred To Contact Radiology Diagnoses Abnormal mammogram Procedures MAMMO BREAST US BIOPSY RIGHT Leanne Ruzi FNP [address] [place] [phone] Phone: tel: fax: [address] [phone] Phone: tel: fax: Referral ID Status Reason Start Date Expiration Date Visits Requested Visits Authorized [id number] Closed Performing Department To Schedule (SGF) 07/20/2015 08/19/2016 1 1 ENT GRINDER * Outpatient Services (Routine) - Closed Specialty Diagnoses / Procedures Referred By Contac t Referred To Contact Radiology Diagnoses Abnormal mammogram Procedures MAMMO BREAST US RIGHT LTD Leanne Ruiz FNP [address] [place] [phone] Phone: tel: fax: [facility] [address] [address] Phone: tel: fax: Referral ID Status Reason Start Date Expiration Date Visits Requested Visits Authorized [id number] Closed Performing Department To Schedule (SGF) 07/20/2015 08/19/2016 1 1 ENT GRINDER * Outpatient Services (Routine) - Closed Specialty Diagnoses / Procedures Referred By Contac t Referred To Contact Radiology Diagnoses Abnormal mammogram Procedures MAMMO DIGITAL DIAG UNI RIGHT Leanne Ruiz FNP [address] [place] [phone] Phone: tel: fax: [facility] [address] [address] Phone: tel: fax: Referral ID Status Reason Start Date Expiration Date Visits Requested Visits Authorized [id number] Closed Performing Department To Schedule (SGF) 07/20/2015 08/19/2016 1 1 ENT GRINDER Encounter Details Date Type Department Care Team (Late st Contact Info) Description 07/20/2015 Ancillary Orders [facility] [address] [phone] Leanne Ruiz FNP [address] [place] [phone] Abnormal mammogram (Primary Dx) Social History Tobacco Use Types Packs/Day Years Used Date Smoking Tobacco: Every Day Cigarettes 0.5 40 Smokeless Tobacco: Never Alcohol Use Standard Drinks/Week Comments No 0 (1 standard drink = 0.6 oz pur e alcohol) Comments No Sex and Gender Information Value Date Recorded Sex Assigned at Not on file Legal Sex Female 3:00 AM PIGMENT 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 Awaiting histopathology results. PATHOLOGY RESULTS REVIEWED 08/25/2015: MALIGNANT Findings: - ductal carcinoma in situ, Grade 3, Cribriform, solid with comedo type necrosis - no microcalcifications identified Radiology-pathology correlation is concordant. RECOMMENDATION: Surgical referral. Findings to be discussed with the patient by PAWAN Kebede. [id number] Narrative 08/25/2015 10:13 PM CDT ULTRASOUND GUIDED NEEDLE BIOPSY RIGHT BREAST, TISSUE MARKER CLIP PLACEMENT AND POST CLIP MAMMOGRAM: HISTORY: 65-year-old with highly suspicious mass and large area of suspicious calcifications in the right breast with the mass in the 12 o'clock subareolar position for ultrasound-guided core biopsy. PROCEDURE: Timeout was performed and informed consent was obtained from the patient, including risks of infection and bleeding. The right breast was evaluated sonographically and the mass was identified at the 12 o'clock subareolar position. The breast was prepped and draped in a sterile fashion. Utilizing aseptic technique, local anesthesia was achieved utilizing 5 mL 1% Xylocaine superficially, as well as 10 mL 1% Xylocaine with a 1:100,000 solution of epinephrine deeply. A 3 mm incision was made in the skin. Under sonographic guidance, a coaxial cannula was placed to the mass from a medial approach and 4 cores (1 fragmented) were obtained without difficulty utilizing a 14 gauge spring-loaded biopsy device. An UltraClip coil-shaped biopsy clip was placed. Hemostasis was achieved with direct pressure. No immediate complication. Specimen radiograph demonstrates several calcifications within the biopsy cores. Post-procedural CC and ML images were obtained. The biopsy clip is in the appropriate position, with the sonographic mass never discretely identified on mammogram. Patient confirmed she tolerated the procedure well. Hemostasis was re-confirmed. A Steri-strip, ice pack and pressure dressing were applied. The patient received verbal and written post-biopsy instructions and was released from the [facility] in stable condition. us Leanne VILLALTA MAMMO ORDERABLES Final Result * MAMMO POST US/STEREO GUIDED PROCEDURE RT (08/24/2015 8:41 AM CDT) Anatomical Region Laterality Modality Breast Right Mammography 08/24/2015 8:41 AM CDT Impressions 08/25/2015 10:13 PM CDT IMPRESSION: Successful ultrasound-guided core biopsy right breast 12 o'clock subareolar position highly suspicious mass with calcifications. Awaiting histopathology results. PATHOLOGY RESULTS REVIEWED 08/25/2015: MALIGNANT Findings: - ductal carcinoma in situ, Grade 3, Cribriform, solid with comedo type necrosis - no microcalcifications identified Radiology-pathology correlation is concordant. RECOMMENDATION: Surgical referral. Findings to be discussed with the patient by PAWAN Kebede. [id number] Narrative 08/25/2015 10:13 PM CDT ULTRASOUND GUIDED NEEDLE BIOPSY RIGHT BREAST, TISSUE MARKER CLIP PLACEMENT AND POST CLIP MAMMOGRAM: HISTORY: 65-year-old with highly suspicious mass and large area of suspicious calcifications in the right breast with the mass in the 12 o'clock subareolar position for ultrasound-guided core biopsy. PROCEDURE: Timeout was performed and informed consent was obtained from the patient, including risks of infection and bleeding. The right breast was evaluated sonographically and the mass was identified at the 12 o'clock subareolar position. The breast was prepped and draped in a sterile fashion. Utilizing aseptic technique, local anesthesia was achieved utilizing 5 mL 1% Xylocaine superficially, as well as 10 mL 1% Xylocaine with a 1:100,000 solution of epinephrine deeply. A 3 mm incision was made in the skin. Under sonographic guidance, a coaxial cannula was placed to the mass from a medial approach and 4 cores (1 fragmented) were obtained without difficulty utilizing a 14 gauge spring-loaded biopsy device. An UltraClip coil-shaped biopsy clip was placed. Hemostasis was achieved with direct pressure. No immediate complication. Specimen radiograph demonstrates several calcifications within the biopsy cores. Post-procedural CC and ML images were obtained. The biopsy clip is in the appropriate position, with the sonographic mass never discretely identified on mammogram. Patient confirmed she tolerated the procedure well. Hemostasis was re-confirmed. A Steri-strip, ice pack and pressure dressing were applied. The patient received verbal and written post-biopsy instructions and was released from the Breast Center in stable condition. 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 Since soft tissue density and calcifications are visible on ultrasound, I would recommend ultrasound-guided core biopsy at the 12 o'clock position superior to the areola, of the 20 mm area of soft tissue density and calcifications, with x-ray of the core specimens to assure that calcifications are obtained. Patient is agreeable. The patient was given a result/recommendation letter. [id number] Narrative 08/11/2015 1:49 PM CDT Right Digital Diagnostic Mammogram And Right Breast Ultrasound: Multiple additional images are presented, including magnification images, to evaluate a very large area of very suspicious calcifications centered anteriorly and superiorly on the right on recent screening mammogram 07/13/2015 when compared with the only previous which we have, in 2007. The calcifications are extremely suspicious and should represent high-grade DCIS, and the area is so large, approaching 6 cm, that invasion is very likely. Calcifications extend through the nipple. Ultrasound of the 12 o'clock area shows some soft tissue density up to 20 mm in size, with multiple calcifications suggested in that area and surrounding area. [facility] Final Result * (ABNORMAL) MAMMO BREAST US RIGHT LTD (08/11/2015 1:04 PM CDT) Anatomical Region Laterality Modality Right Ultrasound Impressions 08/11/2015 1:49 PM CDT IMPRESSION: The calcifications are extremely suspicious as noted above, and almost certainly represent high-grade DCIS with or without invasion. Since soft tissue density and calcifications are visible on ultrasound, I would recommend ultrasound-guided core biopsy at the 12 o'clock position superior to the areola, of the 20 mm area of soft tissue density and calcifications, with x-ray of the core specimens to assure that calcifications are obtained. Patient is agreeable. The patient was given a result/recommendation letter. [id number] Narrative 08/11/2015 1:49 PM CDT Right Digital Diagnostic Mammogram And Right Breast Ultrasound: Multiple additional images are presented, including magnification images, to evaluate a very large area of very suspicious calcifications centered anteriorly and superiorly on the right on recent screening mammogram 07/13/2015 when compared with the only previous which we have, in 2007. The calcifications are extremely suspicious and should represent high-grade DCIS, and the area is so large, approaching 6 cm, that invasion is very likely. Calcifications extend through the nipple. Ultrasound of the 12 o'clock area shows some soft tissue density up to 20 mm in size, with multiple calcifications suggested in that area and surrounding area. us Leanne [facility] Sara [employer]PER[employer] MAMMO ORDERABLES Final Result documented in this encounter Visit Diagnoses Diagnosis Abnormal mammogram- Primary Abnormal mammogram, unspecified Abnormal mammogram Abnormal mammogram, unspecified Abnormal mammogram Abnormal mammogram, unspecified Abnormal mammogram Abnormal mammogram, unspecified Abnormal mammogram Abnormal mammogram, unspecified documented in this encounter Additional Health Concerns Assessment Noted Time PHQ-9 Depression Total Score: 3 06/25/19 16 9:00 AM PIGMENT GRINDER documented as of this encounter Care Teams Parachute Harness Rigger Relationship Specialty Start Date End Date Non-Staff, Physician NO ADDRESS ON FILE PCP - General 05/01/18 documented as of this encounter
--- OUTSIDE RECORDS SUMMARY | 2025-05-18 23:25 | XMS_ITS | Encounter Summary ---
Author Organization [facility] Address [address] [place] [address] Care Team Providers Care Health Nurse Name Role Phone Non-Staff, Physician Primary Care Provider Unava ilable Encounter Details Date Type Department Care Team (Late st Contact Info) Description 07/14/2015 Ancillary Orders [facility] [address] [facility] [address] [place] [address] Leanne Ruiz, GAME TESTER [address] [id number] Social History Tobacco Use Types Packs/Day Years Used Date Smoking Tobacco: Every Day Cigarettes 0.5 40 Smokeless Tobacco: Never Alcohol Use Standard Drinks/Week Comments No 0 (1 standard drink = 0.6 oz pur e alcohol) Comments No Sex and Gender Information Value Date Recorded Sex Assigned at Not on file 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 Gender Identity Not on file Sexual Orientation Not on file Occupation Industry Job Start Date Job End Date Not on file Not on file Not on file Not on file documented as of this encounter Plan of Treatment Not on file documented as of this encounter Visit Diagnoses Not on filedocumented in this encounter Additional Health Concerns Assessment Noted Time PHQ-9 Depression Total Score: 3 06/25/19 16 9:00 AM OFFICE AUTOMATION TECHNICIAN documented as of this encounter Care Teams Health Nurse Relationship Specialty Start Date End Date Non-Staff, Physician NO ADDRESS ON FILE PCP - General 05/01/18 documented as of this encounter
--- OUTSIDE RECORDS SUMMARY | 2025-05-18 23:26 | XMS_ITS ---
Author Organization [facility] Address [address] 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 Past Treatment and Therapy Plans No past plan information found. Lifetime Dose Tracking * Chemical Lifetime Dose Automatic Entry Manual Entr y Effective Dose 10.2 mSv 0 mSv 10.2 mSv Total DLP 1,173 DLP 0 DLP 1,173 DLP CTDIvol Max 102.1 mGy 0 mGy 102.1 mGy CTDIvol Min 35.6 mGy 0 mGy 35.6 mGy
--- OUTSIDE RECORDS SUMMARY | 2025-05-18 23:26 | XMS_ITS | Encounter Summary ---
Author Organization [facility] Address [address] [place] [address] Care Team Providers Care Parking Lot Attendant And Cashier Name Role Phone Non-Staff, Physician Primary Care Provider Unava ilable Encounter Details Date Type Department Care Team (Latest Contact Info) Description 12/19/2013 Ancillary Orders [facility] [address] [place] [address] Trudy Lopez, GIANCARLO [address] [place] [address] Knee joint pain, left (Primary Dx); Knee joint pain, right; Lumbago syndrome; Mixed hyperlipidemia; Osteoarthritis; Other convulsions (CMS/HCC) Social History Tobacco Use Types Packs/Day Years Used Date Smoking Tobacco: Every Day Cigarettes 0.5 40 Alcohol Use Standard Drinks/Week Comments No 0 (1 standard drink = 0.6 oz pur e alcohol) Comments No Sex and Gender Information Value Date Recorded Sex Assigned at Not on file 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 Exam: XR THORACIC SPINE 3 VW Date/Time of Exam: Dec 19, 2013 12:43:27 PM Reason For Exam: Pain in joint, lower leg. The thoracic spine shows mild diffuse spondylosis. Disc space heights are well-maintained. No fracture is seen. Paraspinal soft tissues appear normal. No active bone lesions are seen. Impression: Mild spondylosis. Narrative Procedure Note Isaías Vasquez MD - 12/19/2013 IMPRESSION IMPRESSION: See report below. Exam: XR THORACIC SPINE 3 VW Date/Time of Exam: Dec 19, 2013 12:43:27 PM Reason For Exam: Pain in joint, lower leg. The thoracic spine shows mild diffuse spondylosis. Disc space heights are well-maintained. No fracture is seen. Paraspinal soft tissues appear normal. No active bone lesions are seen. Impression: Mild spondylosis. Trudy Lopez NP DIAGNOSTIC IMAGING ORDER DANISH Final Result documented in this encounter Visit Diagnoses Diagnosis Knee joint pain, left Knee joint pain, right Lumbago syndrome Lumbago Mixed hyperlipidemia Osteoarthritis Osteoarthrosis, unspecified whether generalized or localized, unspecified site Other convulsions Knee joint pain, left- Primary Knee joint pain, right Lumbago syndrome Lumbago Mixed hyperlipidemia Osteoarthritis Osteoarthrosis, unspecified whether generalized or localized, unspecified site Other convulsions documented in this encounter Care Teams Parking Lot Attendant And Cashier Relationship Specialty Start Date End Date Non-Staff, Physician NO ADDRESS ON FILE PCP - General 05/01/18 documented as of this encounter
--- OUTSIDE RECORDS SUMMARY | 2025-05-18 23:26 | XMS_ITS | Continuity of Care Document ---
Author Organization [facility], [facility] ([facility]) Address [address] [place] [address] Care Team Providers Care Circulation Assistant Name Role Phone RIAN CHAPMAN Primary Care Provider Unavailabl e Assessment Encounter Date Assessment Date Assessment LastModified by Organization Details LastModified Time 04/28/2025 04/28/2025 Document scribed by Ambrosio Hassan Sewing Machine [employer]er. I was present during interview and exam. I have reviewed and agree with above documentation. Dr. Rian Chapman. A Care Coordination Assessment form was filled out as part of this patient's office visit today. [email or web address] Not available 04/28/2025 14:50:42 Plan of Treatment Reminders Order Date Submit Date Provider Last Modified By Organization Details Last Modified Time Details Appointments RECHECK 10 2024 01:40P Anna Marie Chapman, DO Not available Not available Not available Lab None recorded. Referral None recorded. Procedures None recorded. Surgeries None recorded. Imaging None recorded. Medication Orders quetiapin e 100 mg tablet 2024 025 [email or web address] [facility] [place], [address] [place], [address], 05/07/2025 13:21:46 Patient TargetsNo targets recorded. Patient InstructionsNo instructions recorded. Reason for Referral None Reported. Results Created Date Observation Date Name Description Value Unit Range Abnormal Flag Note LastModifiedBy Organization Detail LastModifiedTime 04/30/20 25 04/30/2025 MAMMO , scree jocelin, digit al, bilat eral No observ ation record ed. [email or web address] [facility] [address] [place], [address], 05/05/2025 17:11:32 Result Notes None recorded. Problems Name Problem SNOMED Code Status Onset Date Resolution Date Notes Provider Name and Address Organization Details Recorded Time Celluliti s of right upper limb 114026853586 24216 Active 2022 Denise cook [facility] 17:05:35 Restless legs syndrome 05849424 Active 2022 Denise cook [facility] 17:05:35 Low back pain 719226100 Active 2022 Denise cook [facility] 17:05:35 Schizoaff ective disorder 64660830 Active 2022 Denise Carrasco [facility] 17:05:35 Mass of left breast 126833563956 70223 Active 2022 Denise Carrasco [facility] 17:05:35 Primary malignant neoplasm of female breast 66948808 Completed 202208/19/2024 Ambrosio Hassan [facility] 5 11:52:49 Pain of breast 70773170 Active 2022 Denise Carrasco [facility] 17:05:35 Chronic obstructi ve pulmonary disease 29114213 Active 2022 Denise Carrasco [facility] 17:05:35 Pain of right shoulder joint 618258121216 96203 Active 2022 Denise cook [facility] 03/17/202 5 17:05:35 Moderate aortic valve stenosis 040101638 Active 2022 Denise Carrasco null, [facility] 5 17:05:35 Pulmonary hypertens ion 49761004 Active 2022 Denise Carrasco null, [facility] 5 17:05:35 Osteoarth ritis of shoulder region 12605859 Active 2022 Denise Carrasco null, [facility] 5 17:05:35 Vasculiti s of the skin 15418778 Active 2023 Denise Carrasco null, [facility] 5 17:05:35 Hyperlipi demia 40971132 Active 2023 Denise Carrasco null, [facility] 5 17:05:35 Depressiv e disorder 65982171 Active 2023 Denise Carrasco null, [facility] 5 17:05:35 Angina pectoris 983589755 Active 2023 Denise Carrasco null, [facility] 5 17:05:35 Essential hypertens ion 39917016 Active 2023 Denise Carrasco null, [facility] 5 17:05:35 Muscle weakness 05378085 Active 2023 Denise Carrasco null, [facility] 5 17:05:35 Obesity 903800589 Active 2023 Denise Carrasco null, [facility] 5 17:05:35 Iron deficienc y anemia 03799890 Active 2023 Denise cook [facility] 5 17:05:35 Neuropath y 440958526 Active 2023 Denise cook [facility] 5 17:05:35 Coronary arteriosc lerosis 90184621 Active 2024 Denise cook [facility] 5 17:05:35 History of malignant neoplasm of breast 582973784 Active 2024 Denise Chue [facility] 5 11:08:51 Seizure 72541851 Active 2024 Ambrosio Hassan joey [facility] 13:27:44 Adult failure to thrive syndrome 928191100 Active 2024 Ambrosio Hassan joey [facility] 13:29:41 Syncope 348374798 Active 2024 Ambrosio Hassan joey [facility] 13:29:43 Problem Notes None recorded. Procedures Surgical History Date Name Laterality Status Provider Name and Address Organization Details Recorded Time 3 Joint Inj Kenalog- Shoulder, Hip, Knee completed Rian Chapman [address], [address], [facility] 02/27/2023 16:33:48 9 total replacement of hip completed [facility] 06/22/2023 11:07:34 9 total replacement of hip completed [facility] 06/22/2023 11:06:[address] [facility] 11:17:32 Imaging Results None recorded. Procedure Notes None recorded. Medical Equipment None Reported. Allergies No known drug allergies Medications Name Sig Start Date Stop Date Status Note LastModified by Organization Details LastModified Time quetiapin e 25 mg tablet TAKE 1 TABLET BY MOUTH AT BEDTIME 01/10 completed Not Available Not Available Not Available atorvasta tin 80 mg tablet TAKE 1 TABLET BY MOUTH EVERY DAY active Not Available Not Available No t Available doxycycli ne hyclate 100 mg capsule Take 1 capsule twice a day by oral route for 10 days. 06/11 completed Not Available Not Available Not Available ropinirol e 1 mg tablet TAKE 1 TABLET BY MOUTH EVERY DAY IN THE EVENING 05/07 completed stopped 05/07/25 d/t wkns. Not Available Not Available Not Available tizanidin e 2 mg tablet TAKE 1 TABLET BY MOUTH EVERY DAY NEEDED FOR back pain active Not Available Not Available No t Available albuterol sulfate 2.5 mg/3 mL (0.083 %) solution for nebulizat ion USE ONE vial PER nebulize r UP TO every FOUR hours NEEDED FOR shortnes s of breath OR wheezing 02/09 completed Not Available Not Available Not Available Stool Softener 100 mg capsule two times daily active Not Available Not Available No t Available azithromy geno 250 mg tablet TAKE 2 TABLETS BY MOUTH TODAY, THEN TAKE 1 TABLET DAILY ON DAYS 2-5 10/30 completed Not Available Not Available Not Available hydrocodo ne 5 mg-acetam inophen 325 mg tablet TAKE 1 TABLET BY MOUTH UP TO TWICE DAILY as needed for severe pain active Not Available Not Available No t Available sucralfat e 100 mg/mL oral suspensio n take 10ml BY MOUTH THREE TIMES DAILY NEEDED FOR nausea/ upset stomach 02/09 completed Not Available Not Available Not Available sucralfat e 1 gram tablet TAKE 1 TABLET BY MOUTH UP TO THREE TIMES DAILY NEEDED FOR nausea or upset stomach active Not Available Not Available No t Available prednison e 20 mg tablet Take 1 tablet every day by oral route in the morning for 7 days. 11/13 completed Not Available Not Available Not Available isosorbid e mononitra te ER 30 mg tablet,ex tended release 24 hr take 1/2 tablet BY MOUTH EVERY DAY. MAY take extra ONE-HALF tablet if BLOOD PRESSURE <140/90 active Not Available Not Available No t Available clopidogr el 75 mg tablet TAKE 1 TABLET BY MOUTH EVERY DAY active Not Available Not Available No t Available dextromet horphan-g uaifenesi n 10 mg-100 mg/5 mL oral syrup take 10ml BY MOUTH THREE TIMES DAILY NEEDED FOR cough 2024 active Not Available Not Available Not Avai lable quetiapin e 100 mg tablet Take 1 tablet twice a day by oral route for 90 days. 05/07 completed stopped d/t dry throat 05/07/25 . Not Available Not Available Not Available acyclovir 800 mg tablet TAKE 1 TABLET BY MOUTH FIVE TIMES A DAY 10/09 completed Not Available Not Available Not Available betametha sone acetate and sodium phos 6 mg/mL suspensio n for injection Take 6 mg by injectio n route. 08/21 completed Not Available Not Available Not Available alprazola m 0.5 mg tablet TAKE ONE TABLET BY MOUTH 30 mins prior TO mri repeat in 30 mins if needed 10/31 completed Not Available Not Available Not Available citalopra m 20 mg tablet TAKE 1 TABLET BY MOUTH EVERY DAY active Not Available Not Available No t Available famciclov ir 500 mg tablet Take 1 tablet every 8 hours by oral route as directed for 7 days. 08/12 completed Not Available Not Available Not Available benzonata te 100 mg capsule TAKE 1 CAPSULE BY MOUTH THREE TIMES DAILY NEEDED FOR COUGH FOR 7 DAYS 04/19 completed Not Available Not Available Not Available cephalexi n 500 mg capsule take 1 capsule BY MOUTH THREE TIMES DAILY FOR 7 DAYS 10/30 completed Not Available Not Available Not Available pantopraz ole 40 mg tablet,de layed release TAKE 1 TABLET BY MOUTH EVERY MORNING FOR stomach active Not Available Not Available No t Available ropinirol e 0.5 mg tablet TAKE 1 TABLET BY MOUTH AT BEDTIME FOR restless legs 10/03 completed Not Available Not Available Not Available hydrochlo rothiazid e 12.5 mg capsule take 1 capsule BY MOUTH EVERY DAY NEEDED FOR edema active Not Available Not Available No t Available nitroglyc liliana 0.4 mg sublingua l tablet place ONE tablet UNDER THE TONGUE every FIVE minutes NEEDED FOR CHEST pain max THREE doses active Not Available Not Available No t Available gabapenti n 300 mg capsule take 1 capsule BY MOUTH TWICE DAILY active Not Available Not Available No t Available levetirac etam 750 mg tablet TAKE 1 TABLET BY MOUTH TWICE DAILY FOR SEIZURE active Not Available Not Available No t Available mupirocin 2 % topical ointment apply a small amount TO affected area THREE TIMES DAILY 04/19 completed Not Available Not Available Not Available methylpre dnisolone 4 mg tablets in a dose pack 06/11 completed Not Available Not Available Not Available albuterol sulfate HFA 90 mcg/actua tion aerosol inhaler INHALE TWO PUFFS UP TO EVERY 4 HOURS NEEDED FOR SHORTNES S OF BREATH active Not Available Not Available No t Available fluoxetin e 20 mg capsule take ONE capsule BY MOUTH EVERY DAY 07/04 completed Not Available Not Available Not Available fluticaso ne propionat e 50 mcg/actua tion nasal spray,mahad pension USE 1 SPRAY IN EACH NOSTRIL TWICE DAILY active Not Available Not Available No t Available doxycycli ne hyclate 100 mg tablet Take 1 tablet twice a day by oral route for 10 days. 02/08 completed Not Available Not Available Not Available amoxicill in 875 mg-potass ium clavulana te 125 mg tablet Take 1 tablet twice a day by oral route for 10 days. 11/16 completed Not Available Not Available Not Available aripipraz ole 10 mg tablet TAKE ONE TABLET BY MOUTH IN THE MORNING FOR mood active Not Available Not Available No t Available Ventolin 90 mcg/actua tion aerosol inhaler up to every 4 hrs as needed for sob 07/04 completed DM/sd; 16906; Recorded 07/20/19 23 9:45AM by Shayla Ivy (Authori patrick through Rian Chapman DO), Office Visit; Refill Quantity : 1; Each; Not Available Not Available Not Available metoprolo l tartrate 25 mg tablet take one-half tablet BY MOUTH TWICE DAILY FOR blood pressure active Not Available Not Available No t Available Spiriva with [employer] r 18 mcg and inhalatio n capsules inhale THE contents of ONE capsule BY MOUTH EVERY DAY (one dose=2 inhalati ons) FOR copd 07/04 completed Not Available Not Available Not Available atorvasta tin daily 01/10 completed DM/sd; 33621; Recorded 05/05/20 22 11:31AM by Lorri Fields (Authori patrick through Rian Chapman , DO), Office Visit; Refill Quantity : 90; Tablet; Not Available Not Available Not Available calcium-m agnesium- zinc daily 01/10 completed 0; Recorded 07/20/19 23 9:45AM by Shayla Ivy, Office Visit; Not Available Not Available Not Available Calcium 600 PM active Not Available Not Available Not Available diazepam 2 times a day as needed for stress/a nxiety/s eizure 01/10 completed Recorded 05/05/20 22 11:31AM by Lorri Fields, Office Visit; Refill Quantity : 45; Tablet; Not Available Not Available Not Available Plavix 01/10 completed 03946; Recorded 11/18/19 22 9:10AM by Jacey Chu (Authori patrick through [employer] , DO), Office Visit; Refill Quantity : 0; Not Available Not Available Not Available Vitamin D3 25mcg daily active Not Available Not Available No t Available benzonata te TID PRN COUGH 01/10 completed Recorded 05/05/20 22 11:31AM by Lorri Fields, Office Visit; Refill Quantity : 0; Not Available Not Available Not Available Low Dose Aspirin daily active Not Available Not Available Not Available Vitamin-C daily active Not Available Not Kim ilable Not Available ranolazin e ER 500 mg tablet,ex tended release,1 2 hr TAKE 1 TABLET BY MOUTH TWICE DAILY active Not Available Not Available No t Available levetirac etam 1,000 mg tablet TAKE ONE TABLET BY MOUTH TWICE DAILY active Not Available Not Available No t Available quetiapin e 50 mg tablet TAKE 1 TABLET BY MOUTH TWICE DAILY 05/07 completed Not Available Not Available Not Available ferrous gluconate 324 mg (38 mg iron) tablet TAKE 1 TABLET BY MOUTH EVERY DAY active Not Available Not Available No t Available hydrochlo rothiazid e 12.5 mg tablet 10/03 completed Not Available Not Available Not Available Eliquis 5 mg tablet TAKE 1 TABLET BY MOUTH TWICE DAILY active Not Available Not Available No t Available Breo Ellipta 100 mcg-25 mcg/dose powder for inhalatio n inhale ONE PUFF EVERY DAY FOR breathin g 07/04 completed Not Available Not Available Not Available Eliquis DVT-PE Treatment 30-Day Starter 5 mg (74 tablets) in dose pack TAKE BY MOUTH PER PACKAGE directio ns 06/11 completed Not Available Not Available Not Available Trelegy Ellipta 200 mcg-62.5 mcg-25 mcg powder for inhalatio n INHALE 1 PUFF BY MOUTH EVERY DAY active Not Available Not Available No t Available Vitals Date Recorded Body height Body mass index (BMI) Body weight Oxygen saturation Heart rate Respiratory rate Systolic And Diastolic Provider Name and Address Organization Details Last Updated DateTime 162.56 cm 32 kg/m2 46459.5 8 g 98 % 91 /min 18 /min 124/60 mm[Hg] Denise Carrasco [facility] 14:02:18 Social History None recorded. Functional Status Question Answer Note LastModified by Organizat ion Details LastModified Time Do you use any illicit or recreational drugs? No [email or web address] Information not available 11/07/2022 Do you or have you ever used any other forms of tobacco or nicotine? No [email or web address] Information not available 11/07/2022 What is your level of alcohol consumption? None [email or web address] Information not available 11/07/2022 Mental Status None recorded. Family History Relationship Description Onset Age of this Age Resolved Age Notes LastModified by Organization Details LastModified Time Father Heart disease [email or web address] Not available 2024 15:22:12 Paternal Grandmother Heart disease [email or web address] Not available 2024 15:22:12 Paternal Aunt Heart disease [email or web address] Not available 2024 15:22:12 Sister Heart disease Not available 2024 15:22:12 Medical History No medical history recorded. Gynecological HistoryNo gynecological history recorded. Obstetrics History GPAL:G 0 P 0 0 0 0 Immunizations Vaccine Type Date Status Note Provider Nam e and Address Organization Details Recorded Time zoster recombinant 5 completed Ro Griffin [facility] 10/09/2024 13:03:31 Influenza, split virus, quadrivalent, preservative 6 completed ANAHI BASSETT [facility] 04/19/2023 12:26:26 Influenza, high-dose, quadrivalent, PF 2 completed ANAHI BASSETT [facility] 04/19/2023 12:26:26 COVID-19, mRNA, LNP-S, PF, 30 mcg/0.3 mL dose 1 completed ANAHI BASSETT [facility] 04/19/2023 12:26:26 COVID-19, mRNA, LNP-S, PF, 30 mcg/0.3 mL dose 1 completed ANAHI BASSETT [facility] 04/19/2023 12:26:26 COVID-19, mRNA, LNP-S, bivalent, PF, 30 mcg/0.3 mL dose 2 completed ANAHI BASSETT [facility] 04/19/2023 12:26:26 pneumococcal polysaccharide PPV23 6 completed ANAHI PAULINA BASSETT [facility] 04/19/2023 12:26:26 COVID-19, mRNA, LNP-S, PF, zion-sucrose, 30 mcg/0.3 mL 3 completed Not Available [facility] 05/12/2025 19:04:01 Influenza, split virus, quadrivalent, PF 3 completed Rian Chapman, [address], [address], [facility] 03/01/2023 17:27:34 RSV, bivalent, protein subunit RSVpreF, diluent reconstituted, 0.5 mL, PF 4 completed SHAYLA cook [facility] 06/22/2023 12:01:11 Past Encounters Encounter ID Performer Location Encounter Start Date Encounter Closed Date Diagnosis/Indication Diagnosis SNOMED-CT Code Diagnosis ICD10 Code Diagnosis IMO Codes Diagnosis Note [id number] Rian Chapman DO [facility] ([facility]) [address] [place] [address] 04/28/2025 13:49:34 04/30/2025 12:29:40 Schizoaffective disorder 51421190 F25.9 04/28/25: Counseled increase Quetiapine from 100mg at hs to 100mg BID, d/t seizure like activity. Seizure 77081305 R56.9 F44.5 F44.6 92116 04/28/25: Has seen Dr. Duncan previously for evaluation of seizure like activity. Pt to increase Quetiapine to BID today, continue Keppra. F/u 3 weeks. Health Concerns Section Related Observation LastModified by Organization Detai ls LastModified Time None Recorded Concern Status LastModified by Organization Details LastModified Time None Recorded Payers Encounter Date Sequence Insurance Name Policy Number Policy Miranda Covered Member ID Miranda Member ID Guarantor Name 04/28/2025 1 MEDICARE [place]: [place] Karina Leija [id number] Karina Leija 04/28/2025 2 [employer] (MEDICARE SUPPLEMENT) Karina Leija [id number] Karina Leija Notes Date Note Type Note Provider Name and Address Organization Details Recorded Time 04/28/2025 text/html ROS as noted in the HPI Pt presents for recheck seizure like activity. She reports seizure like activity 3 days ago, described as passing out for a period and forgetting where she is when she comes to, followed by after effects , from 6am to 1pm, also present again today. Described as numbness and tingling all over the body. She c/o back and head ache that she rates at 8/10 She c/o numbness to her lips, mouth, and tongue for 1 week She is wanting to discuss dose of the Levetiracetam, increasing. She has previously been evaluated by Dr. Duncan Neurology, Pt denies any h/o skin cancer. Rian Chapman, [address], [address], [facility] 04/28/2025 18:33:22 OBGyn Episode No OBEpisode recorded.
--- OUTSIDE RECORDS SUMMARY | 2025-05-18 23:26 | XMS_ITS | Clinical Summary ---
Author Organization [facility] Address [address] [place]: Epic Prelude ADT [place] [address] Care Team Providers Care Autoclave Operator Name Role Phone Non-Staff, Physician Primary Care Provider Unava ilable Allergies No known active allergies Medications levETIRAcetam (KEPPRA) 1,000 mg tabletIndication s:Seizure disorder (CMS/HCC) TAKE 1 TABLET BY MOUTH TWO TIMES A DAY 180 Tablet 1 05/18/2017 Active atorvastatin (LIPITOR) 20 mg tabletIndication s:Hyperlipidemia LDL goal <100 Take 1 Tablet (20 mg) by mouth Daily LATE. 30 Tablet 5 12/19/2015 Active ibuprofen (MOTRIN) 200 mg tablet Take 200 mg by mouth every 6 hours as needed for Pain, Mild. 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 Gastroesophageal reflux disease without esophagi tis 06/25/2015 Right-sided low back pain without sciatica 06/25 Tobacco use 10/14/2014 Seizure disorder 08/03/2008 Fall, accidental 08/01/2008 Overview (09/24/2020): Updating IMO/ICD9 Code and Description Dilantin toxicity 08/01/2008 Dizziness 08/01/2008 Immunizations Immunization Administration Dates Next Due (PNEUMOVAX 23)(50 YRS UP) PN EUMOCOCCAL POLYSACCHARIDE (PPV23) 0.5 ML, IM 06/25/2015 Influenza Vaccine Quad Split 3+ Yrs Im 6 Family History Medical History Relation Name Comments Breast Cancer Maternal Aunt 50's Hypertension Mother Other Mother dementia Respiratory Disease Mother partial r lung Breast Cancer Sister Relation Name Status Comments Father Maternal Aunt Mother Alive Sister Social History Tobacco Use Types Packs/Day Years Used Date Smoking Tobacco: Every Day Cigarettes Smokeless Tobacco: Never Alcohol Use Standard Drinks/Week Comments No 0 (1 standard drink = 0.6 oz pur e alcohol) Comments Unknown Sex and Gender Information Value Date Recorded Sex Assigned at Not on file Legal Sex Female 12:42 PM [employer] [facility] Gender Identity Not on file Sexual Orientation Not on file Last Filed Vital Signs Vital Sign Reading Time Taken Comments Blood Pressure 124/89 06/23/2016 9:00 PM [employer] Pulse 73 03/28/2016 10:06 AM CDT Temperature 36.7 C (98.1 F) 06/23/2016 6:39 PM [employer] [facility] Respiratory Rate 18 06/23/2016 9:00 PM [employer] Oxygen Saturation - - Inhaled Oxygen Concentration - - Weight 52.2 kg (115 lb) 03/28/2016 10:06 AM CDT Height 162.6 cm (5' 4 ) 03/28/2016 10:06 AM CDT Body Mass Index 19.74 03/28/2016 10:06 AM CDT Plan of Treatment Health Maintenance Due Date Last Done Comments DTAP/TDAP/TD VACCINES (1 - Tdap) 02/21/1967 ZOSTER VACCINE (1 of 2) 02/21/1998 OSTEOPOROSIS SCREENING 02/21/2013 PNEUMOCOCCAL VACCINE 50+ YEARS (2 of 2 - PCV) 06/25/19 17 06/25/2015 RSV VACCINE (60+ or ) (1 - 1-dose 75+ series) 02/21/2023 INFLUENZA VACCINE (#1) 2024 06/25/2015 Care Teams Autoclave Operator Relationship Specialty Start Date End Date Non-Staff, Physician NO ADDRESS ON FILE PCP - General 05/01/18
--- OUTSIDE RECORDS SUMMARY | 2025-05-18 23:26 | XMS_ITS | Encounter Summary ---
Author Organization [facility] Address [address] [place] [address] Care Team Providers Care Video And Sound Recorder Name Role Phone Non-Staff, Physician Primary Care Provider Unava ilable Encounter Details Date Type Department Care Team (Latest Contact Info) Description 12/19/2013 Ancillary Orders [facility] Imaging Services [address] [place] [address] Turdy Lopez NP [address] [place] [address] Knee joint pain, left (Primary [...] on file Legal Sex Female 3:00 AM PICKING TECH Gender Identity Not on file Sexual Orientation Not on file Occupation Industry Job Start Date Job End Date Not on file Not on file Not on file Not on file documented as of this encounter Plan of Treatment Not on file documented as of this encounter Results * XR KNEE 1 OR 2 VW BILAT (12/19/2013 12:44 PM CDT) Anatomical Region Laterality Modality Lower Extremity Computed Radiogr aphy 12/19/2013 12:2 4 PM CDT Addenda Addendum by Isaías Vasquez MD on 12/19/2013 1:40 PM CDT Impression: Normal bilateral exam. Impressions 12/19/2013 1:39 PM CDT IMPRESSION: See report below. Exam: XR KNEE 1 OR 2 VW BILAT Date/Time of Exam: Dec 19, 2013 12:44:23 PM Reason For Exam: Pain in joint, lower leg. No fractures, subluxations, or foreign bodies are identified. The bones are essentially normal in appearance. The soft tissues are grossly normal. Impression: Normal exam. Narrative Procedure Note Isaías Vasquez MD - 12/19/2013 IMPRESSION IMPRESSION: See report below. Exam: XR KNEE 1 OR 2 VW BILAT Date/Time of Exam: Dec 19, 2013 12:44:23 PM Reason For Exam: Pain in joint, lower leg. No fractures, subluxations, or foreign bodies are identified. The bones are essentially normal in appearance. The soft tissues are grossly normal. Impression: Normal exam. Trudy Lopez NP DIAGNOSTIC IMAGING ORDER DANISH Edited Result - Final * XR LUMBAR SPINE 2 OR 3 VW (12/19/2013 12:43 PM CDT) Anatomical Region Laterality Modality Spine Computed Radiogr aphy 12/19/2013 12:2 4 PM CDT Impressions 12/19/2013 1:38 PM CDT IMPRESSION: See report below. Exam: XR LUMBAR SPINE 2 OR 3 VW Date/Time of Exam: Dec 19, 2013 12:43:53 PM Reason For Exam: Pain in joint, lower leg. The lumbar spine is normal in sagittal alignment. Mild disc space widening is present at L2-L3. Other disc spaces are normal in height. Mild facet arthrosis is seen in the lower lumbar spine. No fracture is seen. The upper sacrum is grossly intact. Impression: Some facet arthritic changes are seen inferiorly. Apparent mild disc space widening at L2-L3 could reflect old or recent traumatic changes. Narrative Procedure Note Isaías Vasquez MD - 12/19/2013 IMPRESSION IMPRESSION: See report below. Exam: XR LUMBAR SPINE 2 OR 3 VW Date/Time of Exam: Dec 19, 2013 12:43:53 PM Reason For Exam: Pain in joint, lower leg. The lumbar spine is normal in sagittal alignment. Mild disc space widening is present at L2-L3. Other disc spaces are normal in height. Mild facet arthrosis is seen in the lower lumbar spine. No fracture is seen. The upper sacrum is grossly intact. Impression: Some facet arthritic changes are seen inferiorly. Apparent mild disc space widening at L2-L3 could reflect old or recent traumatic changes. Trudy Lopez NP DIAGNOSTIC IMAGING ORDER DANISH Final Result documented in this encounter Visit Diagnoses Diagnosis Knee joint pain, left- Primary Knee joint pain, right Lumbago syndrome Lumbago Mixed hyperlipidemia Osteoarthritis Osteoarthrosis, unspecified whether generalized or localized, unspecified site Other convulsions Knee joint pain, left Knee joint pain, right Lumbago syndrome Lumbago Mixed hyperlipidemia Osteoarthritis Osteoarthrosis, unspecified whether generalized or localized, unspecified site Other convulsions Knee joint pain, left Knee joint pain, right Lumbago syndrome Lumbago Mixed hyperlipidemia Osteoarthritis Osteoarthrosis, unspecified whether generalized or localized, unspecified site Other convulsions documented in this encounter Care Teams Video And Sound Recorder Relationship Specialty Start Date End Date Non-Staff, Physician NO ADDRESS ON FILE PCP - General 05/01/18 documented as of this encounter
--- OUTSIDE RECORDS SUMMARY | 2025-05-18 23:26 | XMS_ITS | Continuity of Care Document ---
Author Organization [facility] Hesham Osullivan [facility], [facility], [facility] ([facility]) Address [address] [address] Care Team Providers Care Auto Suspension And Steering Mechanic Name Role Phone RIAN CHAPMAN Primary Care Provider Unavailabl e Assessment Encounter Date Assessment Date Assessment LastModified by Organization Details LastModified Time 05/07/2025 05/07/2025 Document scribed by Ambrosio Hassan, Hand Mold Maker. I was present during interview and exam. I have reviewed and agree with above documentation . Dr. Rian Chapman. Pt with recurrent episodes of seizure activity and recurrent falls the last 2-3 weeks. she is very weak, unable to ambulate, needing full asist for bathroom. not able to cook, clean. using wheelchair. she is able to transfer. She lives alone. I recommend she be admitted to SNF for rehab until we can get seizure activity to toney and her legs stronger. she and family agree. orders: Admit to SNF, eval for PT, OT regular diet continue current meds per updated med list. bowel protocol per facility. [email or web address] Not available 05/07/2025 13:49:01 Plan of Treatment Reminders Order Date Submit Date Provider Last Modified By Organization Details Last Modified Time Details Appointments RECHECK 10 2024 01:40P Anna Marie Chapman, DO Not available Not available Not available Lab None recorded. Referral None recorded. Procedures None recorded. Surgeries None recorded. Imaging None recorded. Medication Orders aripipraz ole 10 mg tablet 2024 025 [email or web address] 7 [facility] [place], [address] [place], [address], 05/07/2025 17:01:48 levetirac etam 1,000 mg tablet 2024 025 [email or web address] 7 [facility] [place], [address] [place], [address], 05/07/2025 17:01:48 Patient TargetsNo targets recorded. Patient InstructionsNo instructions recorded. Reason for Referral None Reported. Results Created Date Observation Date Name Description Value Unit Range Abnormal Flag Note LastModifiedBy Organization Detail LastModifiedTime 04/30/2004/30/2025 MAMMO , scree jocelin, digit al, bilat eral No observ ation record ed. [email or web address] [facility] [address] [place], [address], 05/05/2025 17:11:32 Result Notes None recorded. Problems Name Problem SNOMED Code Status Onset Date Resolution Date Notes Provider Name and Address Organization Details Recorded Time Celluliti s of right upper limb 823548805975 05210 Active 2022 Denise cook [facility] 5 17:05:35 Restless legs syndrome 52373355 Active 2022 Denise Carrasco [facility] 5 17:05:35 Low back pain 605445646 Active 2022 Denise cook [facility] 5 17:05:35 Schizoaff ective disorder 70078288 Active 2022 Denise cook [facility] 5 17:05:35 Mass of left breast 951280312726 78493 Active 2022 Denise cook [facility] 5 17:05:35 Primary malignant neoplasm of female breast 24039193 Completed 202208/19/2024 Ambrosio cook [facility] 5 11:52:49 Pain of breast 00234775 Active 2022 Deniserolanda Carrasco [facility] 5 17:05:35 Chronic obstructi ve pulmonary disease 18011497 Active 2022 Deniserolanda Chue [facility] 5 17:05:35 Pain of right shoulder joint 826762346881 63589 Active 2022 Deniserolanda Chue [facility] 5 17:05:35 Moderate aortic valve stenosis 351083190 Active 2022 Denise Luna [facility] 5 17:05:35 Pulmonary hypertens ion 40209319 Active 2022 Deniserolanda Carrasco [facility] 5 17:05:35 Osteoarth ritis of shoulder region 31472148 Active 2022 Denise Carrasco [facility] 5 17:05:35 Vasculiti s of the skin 58212788 Active 2023 Denise Luna [facility] 5 17:05:35 Hyperlipi demia 48059499 Active 2023 Denise Carrasco [facility] 5 17:05:35 Depressiv e disorder 86202529 Active 2023 Denise Carrasco [facility] 5 17:05:35 Angina pectoris 967239459 Active 2023 Denise Carrasco [facility] 5 17:05:35 Essential hypertens ion 75600808 Active 2023 Denise cook, [facility] 5 17:05:35 Muscle weakness 62801132 Active 2023 Denise cook, [facility] 5 17:05:35 Obesity 612503696 Active 2023 Denise cook, [facility] 5 17:05:35 Iron deficienc y anemia 58255190 Active 2023 Denise Carrasco [facility] 5 17:05:35 Neuropath y 921086340 Active 2023 Denise Carrasco [facility] 5 17:05:35 Coronary arteriosc lerosis 75824467 Active 2024 Denise Carrasco [facility] 5 17:05:35 History of malignant neoplasm of breast 740344935 Active 2024 Denise Carrasco [facility] 5 11:08:51 Seizure 40077091 Active 2024 Ambrosio Amosnoe [facility] 5 13:27:44 Adult failure to thrive syndrome 163868534 Active 2024 Ambrosio cook [facility] 13:29:41 Syncope 535911162 Active 2024 Ambrosio Hassan joey [facility] 13:29:43 Problem Notes None recorded. Procedures Surgical History Date Name Laterality Status Provider Name and Address Organization Details Recorded Time 3 Joint Inj Kenalog- Shoulder, Hip, Knee completed Rian Chapman [address] [place] [address], [phone], [facility], [facility] 02/27/2023 16:33:48 9 total replacement of hip completed [facility] 06/22/2023 11:07:34 9 total replacement of hip completed [facility] 06/22/2023 11:06:57 [address] [facility] 06/22/2023 11:17:32 Imaging Results None recorded. Procedure [...] as needed for sob 07/04 completed DM/sd; 44092; Recorded 07/20/19 23 9:45AM by Shayla Ivy (Aditya nguyen through Rian Chapman DO), Office Visit; Refill [...] Available atorvasta tin daily 01/10 completed DM/sd; 76618; Recorded 05/05/20 11:31AM by Lorri Fields (Aditya nguyen through Rian Chapman DO), Office Visit; Refill Quantity : 90; [...] Not Available Not Available Plavix 01/10 completed 55183; Recorded 11/18/19 9:10AM by Jacey Chu (Aditya nguyen through Rian Chapman DO), Office Visit; Refill Quantity : 0; [...] t Available Vitals Date Recorded Body height Oxygen saturation Heart rate Respiratory rate Systolic And Diastolic Provider Name and Address Organization Details Last Updated DateTime 5 162.56 cm 95 % 80 /min 18 /min 118/76 mm[Hg] Denise Carrasco [facility], [facility] 5 12:53:04 Social History None recorded. Functional Status Question Answer Note LastModified by Organizat ion Details LastModified Time Do you use any illicit or recreational drugs? No Information not available 11/07/2022 Do you or have you ever used any other forms of tobacco or nicotine? No [email or web address] Information not available 11/07/2022 What is your level of alcohol consumption? None [email or web address] Information not available 11/07/2022 Mental Status None recorded. Family History Relationship Description Onset Age of this Age Resolved Age Notes LastModified by Organization Details LastModified Time Father Heart disease Not available 2024 15:22:12 Paternal Grandmother Heart disease [email or web address] Not available 2024 15:22:12 Paternal Aunt Heart disease Not available 2024 15:22:12 Sister Heart disease [email or web address] Not available 2024 15:22:12 Medical History No medical history recorded. Gynecological HistoryNo gynecological history recorded. Obstetrics History GPAL:G 0 P 0 0 0 0 Immunizations Vaccine Type Date Status Note Provider Nam e and Address Organization Details Recorded Time zoster recombinant 5 [facility]/09[facility]2024 13:03:31 Influenza, split virus, quadrivalent, preservative 6 completed [facility] 04/19/2023 12:26:26 Influenza, high-dose, quadrivalent, PF 2 [facility] 04/19/2023 12:26:26 COVID-19, mRNA, LNP-S, PF, 30 mcg/0.3 mL dose 1 completed [facility] 04/19/2023 12:26:26 COVID-19, mRNA, LNP-S, PF, 30 mcg/0.3 mL dose 1 completed [facility] 04/19/2023 12:26:26 COVID-19, mRNA, LNP-S, bivalent, PF, 30 mcg/0.3 mL dose 2 completed [facility] 04/19/2023 12:26:26 pneumococcal polysaccharide PPV23 6 completed ANAHI cook, [facility] 04/19/2023 12:26:26 COVID-19, mRNA, LNP-S, PF, zion-sucrose, 30 mcg/0.3 mL 3 completed Not Available [facility] 05/12/2025 19:04:01 Influenza, split virus, quadrivalent, PF 3 completed Rian Chapman DO [address] [place] [address], [phone], [facility] 03/01/2023 17:27:34 RSV, bivalent, protein subunit RSVpreF, diluent reconstituted, 0.5 mL, PF 4 completed SHAYLA cook, [facility] 06/22/2023 12:01:11 Past Encounters Encounter ID Performer Location Encounter Start Date Encounter Closed Date Diagnosis/Indication Diagnosis SNOMED-CT Code Diagnosis ICD10 Code Diagnosis IMO Codes Diagnosis Note [id number] Rian Chapman DO [facility] ([facility]) [address] [place] [phone] 04/28/2025 13:49:34 04/30/2025 12:29:40 Schizoaffective disorder 68720010 F25.9 04/28/25: Counseled increase Quetiapine from 100mg at hs to 100mg BID, d/t seizure like activity. Seizure 47616774 R56.9 F44.5 F44.6 37794 04/28/25: Has seen Dr. Duncan previously for evaluation of seizure like activity. Pt to increase Quetiapine to BID today, continue Keppra. F/u 3 weeks. [id number] Rian Chapman DO [facility] ([facility]) [address] [place] [phone] 05/07/2025 10:53:18 05/12/2025 11:17:24 Schizoaffective disorder 87957024 F25.9 05/07/25: Significan t dry throat likely r/t Quetiapine , stop this and start Abilify. Counseled on diagnosis, treatment options including medication s and possible side effects.: Counseled increase Quetiapine from 100mg at hs to 100mg BID, d/t seizure like activity. Restless l egs syndrome 51551003 G25.81 05/07/25: Pt to stop Ropinirole , this could be contributi ng to wkns. Recurrent falls 83987949 2 R29.6 7443856 Continue home exercises and continue with cane. Asthenia 00160250 R53.1 11020 05/05/25: Counseled will order HHC and PT, pt does not drive, she prefers to try PT at home. Seizure 48525951 R56.9 F44.5 F44.6 05/07/25: Increase Keppra from 750mg to 1000mg, stop Quetiapine , counseled. 04/28/25: Has seen Dr. Duncan previously for evaluation of seizure like activity. Pt to increase Quetiapine to BID today, continue Keppra. F/u 3 weeks. Adult fail ure to thrive syndrome 046906711 R62.7 623444 We will contact [facility] regarding need for admission for rehabilita tion. Syncope 663349752 R55 [id number] Health Concerns Section Related Observation LastModified by Organization Detai ls LastModified Time None Recorded Concern Status LastModified by Organization Details LastModified Time None Recorded Payers Encounter Date Sequence Insurance Name Policy Number Policy Miranda Covered Member ID Miranda Member ID Guarantor Name 05/07/2025 1 [place]IC[place]: [place] Karina Leija [id number] Karina Leija 05/07/2025 2 [employer] (MEDICARE SUPPLEMENT) Karina Leija [id number] Karina Leija Notes Date Note Type Note Provider Name and Address Organization Details Recorded Time 05/07/2025 text/html ROS as noted in the HPI Pt presents for ER visit Seen in ER 05/05/25 after taking a fall at home.Medical Decision MakingPatient presents here after a fall at home with some generalized weakness. Differential includes anemia, infection, CVA. She has no focal deficits here no signs of stroke head CT here was negative. Blood work here showed no significant abnormalities no signs of anemia her vitals here been normal she was able to ambulate here with a walker does use a walker at home. I feel she is stable for discharge follow-up with PCP return if worsening I went over all her findings with her she understands agrees to plan.No scripts. Pt sister came in and found her on the floor from 2 falls that she was unable to get up. Her sister called the ambulance. She was evaled at the ER She also admits that she had 2 more falls late last night, went to go to the bathroom and fell twice. She had called the ambulance for them to check her out. She admits that she had a nose bleed and that is why she has blood in her hair. She also admits that she had hit the back of her head during one of these falls. She states that she was unable to get up and she slept on her floor. She is currently on Eliquis and Plavix. Pt is still living alone, open to going to rehab at [facility] temporarily followed by [facility] if possible. She would like [facility] if possible. C/o dry throat. Rian Chapman, DO [address] [place] [address], [phone], [facility] 05/07/2025 13:49:11 OBGyn Episode No OBEpisode recorded.
--- OUTSIDE RECORDS SUMMARY | 2025-05-18 23:26 | XMS_ITS ---
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 Past Treatment and Therapy Plans No past plan information found. Lifetime Dose Tracking * Chemical Lifetime Dose Automatic Entry Manual Entr y Effective Dose 10.2 mSv 10.2 mSv 0 mSv Total DLP 1,173 DLP 1,173 DLP 0 DLP CTDIvol Max 102.1 mGy 102.1 mGy 0 mGy CTDIvol Min 35.6 mGy 35.6 mGy 0 mGy
--- OUTSIDE RECORDS SUMMARY | 2025-05-18 23:26 | XMS_ITS | Encounter Summary ---
Author Organization [facility] Address [address] [place] [address] Care Team Providers Care Friction Paint Machine Tender Name Role Phone Non-Staff, Physician Primary Care Provider Unava ilable Reason for Referral * Outpatient Services (Routine) - Closed Specialty Diagnoses / Procedures Referred By Jayden rivera Referred To Contact Diagnoses Abnormal mammogram Procedures MAMMO BREAST SPECIMEN RT Leanne Ruiz FNP [address] [place] [phone] Phone: tel: fax: Referral ID Status Reason Start Date Expiration Date Visits Re quested Visits Authorized [id number] Closed 08/24/2015 09/23/2016 1 1 Encounter Details Date Type Department Care Team (Late st Contact Info) Description 08/24/2015 Ancillary Orders [facility] [address] [address] Leanne Ruiz FNP [address] [place] [phone] Abnormal mammogram (Primary Dx) Social History Tobacco Use Types Packs/Day Years Used Date Smoking Tobacco: Every Day Cigarettes 0.5 40 Smokeless Tobacco: Never Alcohol Use Standard Drinks/Week Comments No 0 (1 standard drink = 0.6 oz pur e alcohol) Comments No Sex and Gender Information Value Date Recorded Sex Assigned at Not on file Legal Sex Female 3:00 AM [employer] Gender Identity Not on file Sexual Orientation Not on file Occupation Industry Job Start Date Job End Date Not on file Not on file Not on file Not on file documented as of this encounter Plan of Treatment Not on file documented as of this encounter Results * MAMMO BREAST SPECIMEN RT (08/24/2015 8:41 AM CDT) Anatomical Region [...] discussed with the patient by PAWAN Kebede. [id number] Narrative 08/25/2015 10:13 PM CDT ULTRASOUND GUIDED [...] [facility] Center in stable condition. Leanne Ruiz INTERNATIONAL GUEST COORDINATOR MAMMO ORDERABLES Final Result documented in this encounter Visit Diagnoses Diagnosis Abnormal mammogram- Primary Abnormal mammogram, unspecified Abnormal mammogram Abnormal mammogram, unspecified documented in this encounter Additional Health Concerns Assessment Noted Time PHQ-9 Depression Total Score: 3 06/25/19 16 9:00 AM [employer] documented as of this encounter Care Teams Friction Paint Machine Tender Relationship Specialty Start Date End Date Non-Staff, Physician NO ADDRESS ON FILE PCP - General 05/01/18 documented as of this encounter
--- OUTSIDE RECORDS SUMMARY | 2025-05-18 23:26 | XMS_ITS | Data Portability ---
Author Organization [facility] Dahl [facility], [facility] Address [address] [facility] [address] [place] [address] Care Team Providers Care Systems Planner Name Role Phone RIAN COREY Primary Care Provider Unavailabl e Assessment Encounter Date Assessment Date Assessment LastModified by Organization Details LastModified Time 01/22/2025 01/22/2025 Document scribed by Fidel Boucher Scribe. I was present during interview and exam. I have reviewed and agree with above documentation. Dr. Rian Corey. [email or web address] Not available 01/22/2025 12:53:53 04/28/2025 04/28/2025 Document scribed by Fidel Boucher Scribe. I was present during interview and exam. I have reviewed and agree with above documentation. Dr. Rian Corey. A Care Coordination Assessment form was filled out as part of this patient's office visit today. [email or web address] Not available 04/28/2025 14:50:42 05/07/2025 05/07/2025 Document scribed by Fidel Boucher Scribe. I was present during interview and exam. I have reviewed and agree with above documentation. Dr. Rian Corey. Pt with recurrent episodes of seizure activity [...] updated med list. bowel protocol per facility. [email or web address] Not available 05/07/2025 13:49:01 Plan of Treatment Reminders Order Date Submit Date Provider Last Modified By Organization Details Last Modified Time Details Appointments RECHECK 10 2024 01:40P Anna Marie Corey, DO Not available Not available Not available Lab None recorded. Referral None recorded. Procedures None recorded. Surgeries None recorded. Imaging None recorded. Medication Orders aripipraz ole 10 mg tablet 2024 [email or web address] [place] [address], [address] [place] [address], [address], 05/07/2025 17:01:48 levetirac etam 1,000 mg tablet 2024 [email or web address] [place] [address], [address], 05/07/2025 17:01:48 quetiapin e 100 mg tablet 2024 025 dkiest [facility], [address] [place] [address], [address], 05/07/2025 13:21:46 doxycycli ne hyclate 100 mg tablet 2024 025 HARJINDER [facility], [address] [place] [address], [address], 02/08/2025 05:01:48 dextromet horphan-g uaifenesi n 10 mg-100 mg/5 mL oral syrup 2024 [email or web address] [place] [address], [address], 01/22/2025 15:02:20 Patient TargetsNo targets recorded. Patient InstructionsNo instructions recorded. Reason for Referral Home Health Referral for Abn ormal gait [facility] eval and treat with PT. Referring Physician: Rian Corey, Family Medicine, Encounter Date: 05/05/2025 Results Created Date Observation Date Name Description Value Unit Range Abnormal Flag Note LastModifiedBy Organization Detail LastModifiedTime 04/30/2004/30/2025 MAMMO , priscae jocelin, digit al, bilat eral No observ ation record ed. [email or web address] [facility] [address] [place], [address], 05/05/2025 17:11:32 Result Notes None recorded. Problems Name Problem SNOMED Code Status Onset Date Resolution Date Notes Provider Name and Address Organization Details Recorded Time Celluliti s of right upper limb 171688327043 38319 Active 2022 Denise cook [facility] 5 17:05:35 Restless legs syndrome 23931681 Active 2022 Denise cook [facility] 5 17:05:35 Low back pain 772539686 Active 2022 Denise cook [facility] 5 17:05:35 Schizoaff ective disorder 11132471 Active 2022 Denise cook [facility] 5 17:05:35 Mass of left breast 905653335765 26061 Active 2022 Denise cook [facility] 5 17:05:35 Primary malignant neoplasm of female breast 54046328 Completed 202208/19/2024 Ambrosio cook [facility] 5 11:52:49 Pain of breast 86128456 Active 2022 Denise cook [facility] 5 17:05:35 Chronic obstructi ve pulmonary disease 05964381 Active 2022 Denise cook, [facility] 5 17:05:35 Pain of right shoulder joint 007222590163 44847 Active 2022 Deniserolanda Carrasco [facility], [facility] 5 17:05:35 Moderate aortic valve stenosis 768374029 Active 2022 Deniserolanda Chue [facility], [facility] 17:05:35 Pulmonary hypertens ion 82027595 Active 2022 Denise Carrasco [facility] 17:05:35 Osteoarth ritis of shoulder region 86839369 Active 2022 Denise Carrasco [facility] 5 17:05:35 Vasculiti s of the skin 30717775 Active 2023 Deniserolanda Chue [facility], [facility] 5 17:05:35 Hyperlipi demia 19846955 Active 2023 Denise Carrasco [facility] 17:05:35 Depressiv e disorder 89324315 Active 2023 Denise Carrasco [facility] 17:05:35 Angina pectoris 150313251 Active 2023 Denise Carrasco [facility], [facility] 17:05:35 Essential hypertens ion 21650093 Active 2023 Denise Carrasco [facility] 5 17:05:35 Muscle weakness 08844881 Active 2023 Denise Carrasco [facility] 5 17:05:35 Obesity 620210289 Active 2023 Denise Carrasco joey [facility] 5 17:05:35 Iron deficienc y anemia 66258877 Active 2023 Deniserolanda Chue [facility] 5 17:05:35 Neuropath y 496263439 Active 2023 Deniserolanda cook [facility] 5 17:05:35 Coronary arteriosc lerosis 77382417 Active 2024 Denise Luna cook [facility] 5 17:05:35 History of malignant neoplasm of breast 604511011 Active 2024 Denise Carrasco [facility] 11:08:51 Seizure 27853896 Active 2024 Ambrosio cook [facility] 5 13:27:44 Adult failure to thrive syndrome 518099784 Active 2024 Ambrosio cook [facility] 5 13:29:41 Syncope 270978053 Active 2024 Ambrosio Amosnoe [facility] 13:29:43 Problem Notes None recorded. Procedures Surgical History Date Name Laterality Status Provider Name and Address Organization Details Recorded Time 3 Joint Inj Kenalog- Shoulder, Hip, Knee completed Rian Corey DO [address] [place] [address], [phone], [facility] 02/27/2023 16:33:48 9 total replacement of hip completed [facility]al [facility] 11:07:34 9 [facility] 11:06:57 8 [facility]23 11:17:32 Imaging Results None recorded. Procedure [...] as needed for sob 07/04 completed DM/sd; 83582; Recorded 07/20/19 23 9:45AM by Shayla Ivy (Aditya nguyen through Rian Corey DO), Office Visit; Refill Quantity : 1; [...] Available atorvasta tin daily 01/10 completed DM/sd; 77615; Recorded 05/05/20 22 11:31AM by Lorri Fields (Aditya nguyen through Rian Corey DO), Office Visit; Refill Quantity : 90; [...] Not Available Not Available Plavix 01/10 completed 98122; Recorded 11/18/19 22 9:10AM by Jacey Chu (Aditya nguyen through Rian Corey DO), Office Visit; Refill Quantity : 0; [...] weight Oxygen saturation Heart rate Respiratory rate Body temperature Systolic And Diastolic Provider Name and Address Organization Details Last Updated DateTime 5 162.56 cm 31.3 kg/m2 43319.5 1 g 93 % 96 /min 18 /min 98.8 [degF] 130/70 mm[Hg] [facility] 5 12:37:07 Date Recorded Body height Body mass index (BMI) Body weight Oxygen saturation Heart rate Respiratory rate Systolic And Diastolic Provider Name and Address Organization Details Last Updated DateTime 5 162.56 cm 32 kg/m2 75065.5 8 g 98 % 91 /min 18 /min 124/60 mm[Hg] [facility] 5 14:02:18 Date Recorded Body height Body mass index (BMI) Body weight Oxygen saturation Heart rate Respiratory rate Systolic And Diastolic Provider Name and Address Organization Details Last Updated DateTime 5 162.56 cm 31.2 kg/m2 49897.0 2 g 94 % 88 /min 18 /min 130/70 mm[Hg] Denise Carrasco [facility] 5 15:26:45 Date Recorded Body height Oxygen saturation Heart rate Respiratory rate Systolic And Diastolic Provider Name and Address Organization Details Last Updated DateTime 5 162.56 cm 95 % 80 /min 18 /min 118/76 mm[Hg] Denise Carrasco [facility] 5 12:53:04 Social History None recorded. Functional Status Question Answer Note LastModified by Organizat ion Details LastModified Time Do you use any illicit or recreational drugs? No [email or web address] Information not available 11/07/2022 Do you or have you ever used any other forms of tobacco or nicotine? No Information not available 11/07/2022 What is your level of alcohol consumption? None [email or web address] Information not available 11/07/2022 Mental Status None recorded. Family History Relationship Description Onset Age of this Age Resolved Age Notes LastModified by Organization Details LastModified Time Father Heart disease [email or web address] Not available 2024 15:22:12 Paternal Grandmother Heart disease [email or web address] Not available 2024 15:22:12 Paternal Aunt Heart disease Not available 2024 15:22:12 Sister Heart disease [email or web address] Not available 2024 15:22:12 Medical History No medical history recorded. Gynecological HistoryNo gynecological history recorded. Obstetrics History GPAL:G 0 P 0 0 0 0 Immunizations Vaccine Type Date Status Note Provider Nam e and Address Organization Details Recorded Time zoster recombinant 5 completed Ro cook [facility] 10/09/2024 13:03:31 Influenza, split virus, quadrivalent, preservative 6 completed ANAHI cook [facility] 04/19/2023 12:26:26 Influenza, high-dose, quadrivalent, PF 2 completed ANAHI cook [facility] 04/19/2023 12:26:26 COVID-19, mRNA, LNP-S, PF, 30 mcg/0.3 mL dose 1 completed ANAHI cook, [facility] 04/19/2023 12:26:26 COVID-19, mRNA, LNP-S, PF, 30 mcg/0.3 mL dose 1 completed ANAHI cook [facility] 04/19/2023 12:26:26 COVID-19, mRNA, LNP-S, bivalent, PF, 30 mcg/0.3 mL dose 2 completed ANAHI coko [facility] 04/19/2023 12:26:26 pneumococcal polysaccharide PPV23 6 completed ANAHI cook [facility] 04/19/2023 12:26:26 COVID-19, mRNA, LNP-S, PF, zion-sucrose, 30 mcg/0.3 mL 3 completed Not Available [facility] 05/12/2025 19:04:01 Influenza, split virus, quadrivalent, PF 3 completed Rian Corey DO [address] [place] [address], [phone], [facility] 03/01/2023 17:27:34 RSV, bivalent, protein subunit RSVpreF, diluent reconstituted, 0.5 mL, PF 4 [facility] 06/22/2023 12:01:11 Past Encounters Encounter ID Performer Location Encounter Start Date Encounter Closed Date Diagnosis/Indication Diagnosis SNOMED-CT Code Diagnosis ICD10 Code Diagnosis IMO Codes Diagnosis Note [id number] LANEY CONCEPCION PA-C [facility] [address] [place] [address] 09/02/2022 15:56:42 09/11/2022 07:17:36 Acute bronchitis 08753451 J20.9 Idiopathic peripheral neuropathy 99803345 G60.9 wants her TSH and B12 results before seeing neurologis t [id number] Rian Corey DO [facility]) [address] [place] [phone] 09/12/2022 12:00:19 09/17/2022 11:44:14 Chronic pain 37653546 G89.29 Hematochezia 321545243 K 92.1 Internal hemorrhoids 904 95309 K64.8 COVID-19 919720691 U07.1 3 wks ago, recovering , some of her fatigue, shaking, cough and other symptoms are from this, improving, continue ASA . I counseled on expectatio ns, signs and symptoms of concern. [id number] Rian Corey DO [facility]) [address] [place] [phone] 11/07/2022 13:22:43 11/21/2022 12:37:14 COVID-19 509782503 U07.1 recovering well on day 7 on prednisone and doxycyclin e. sytmpoms nearly resolved.n o change in meds. Return to office with no improvemen t or any problems. Go to ER with severe worsening or severe problems. [id number] Rian Corey DO [facility]) [address] [place] [id number] 01/10/2023 11:06:15 01/10/2023 12:47:17 Low back pain 140614837 M54.50 stable. counseled on exercise. Schizoaffe ctive disorder 25244001 F25.9 Stable. Continue Restless l egs syndrome 23309854 G25.81 Not well controlled . We will increase ropinirole to 1 nightly return with problems. Cellulitis of right upper limb 4995119857 6323562 L03.113 Small spot on right upper outer thigh. Topical antibiotic s. Return if worsening. [id number] Rian Corey DO [facility]) [address] [place] [id number] 01/18/2023 08:04:44 01/18/2023 11:31:28 Pain of breast 82236480 N64.4 Worsening. With new nodule palpated today on exam. We will get breast ultrasound . Mass of left breast 1224 234991 6765729 N63.20 With history of right breast cancer 2018 reviewed last ultrasound done in September of this year. Will repeat ultrasound due to new finding. Primary ma lignant neoplasm of female breast 82209598 C50.919 right breast, 2018, s/p right mastectomy . Followed by Dr. Reeder, [facility] oncology [id number] Rian Corey DO [facility]) [address] [place] [id number] 02/20/2023 11:28:42 02/20/2023 19:44:44 Active or passive immunization 197597225 Z23 fluvax given today. Chronic ob structive pulmonary disease 32383075 J44.9 per PFTs 01/2020 with consistent and persistent symptoms. will add trelegy to albuterol. consider repeat PFTs. Return to office with no improvemen t or any problems. Go to ER with severe worsening or severe problems. Pain of ri ght shoulder joint 5159891213 1024809 M25.511 2-3 wks, mod/severe . will get xray, consdier injection. counseled Moderate a ortic valve stenosis 012740275 I35.0 persistent with fu echo on 01/27/23. followed by Dr. Zavaleta, cardiology . counseled on results. Pulmonary hypertension 39311956 I27.20 moderate per ECHO 01/27/2023. continue care with cardiology . Mass of left breast 1224 544927 4982732 N63.20 With history of right breast cancer 2018 reviewed last ultrasound done in September of this year. Will repeat ultrasound due to new finding. WE ordered this on 01/19/23, will f/u and make sure this gets done ANNA. [id number] Rian Corey DO [facility]) [address] [place] [id number] 02/27/2023 15:41:53 02/27/2023 18:33:16 Pain of right shoulder joint 0523044374 7856896 M25.511 With patient she wishes to proceed with injection today. Count her on procedure, risks, expectatio ns, aftercare. Injection given as above. Return with worsening. Osteoarthr itis of shoulder region 70096493 M19.338 [id number] Rian Corey DO [facility]) [address] [place] [id number] 04/19/2023 11:18:29 04/19/2023 14:17:57 Mass of left breast 7976873343 4020498 N63.20 Reviewed and discussed recent Mammo an US, the area of concern is not increasing in size, c/w cyst, will monitor, repeat US in 6 months. Upper resp iratory infection 87030052 J06.9 Counseled will send abx, to start this if symptoms worsening. Injury of head 04101004 S09.90XA CT Head scheduled Monday04/24/23. [id number] Rian Corey DO [facility]) [address] [place] [id number] 5 06/05/2023 14:20:02 06/05/2023 15:43:42 Acute bronchitis 59866213 J20.9 Counseled abx, steroid, continue inhaler and neb. [id number] Rian Corey DO [facility]) [address] [place] [phone] 06/22/2023 10:47:07 06/22/2023 11:36:13 Active or passive immunization 075661924 Z23 RSV vax given today. Vasculitis of the skin 85522142 L95.9 Right lower extremity. Treated in ER with prednisone taper. She still has several days of her taper last and her right leg is much improved. Counseled on diagnosis and concern for recurrence . [id number] Rian Corey DO [facility]) [address] [place] [id number] 07/04/2023 09:09:22 07/05/2023 12:01:56 Fatigue 99671706 R53.83 Low back pain 162136226 M54.50 stable. counseled on exercise. History of malignant neoplasm of breast 457022223 Z85.3 right breast, 2018, s/p right mastectomy . Followed by Dr. Reeder, [facility] oncology Pulmonary hypertension 16906885 I27.20 moderate per ECHO 01/27/2023. continue care with cardiology . Chronic ob structive pulmonary disease 48452431 J44.9 per PFTs 01/2020 with consistent and persistent symptoms. will add trelegy to albuterol. consider repeat PFTs. Return to office with no improvemen t or any problems. Go to ER with severe worsening or severe problems.- continue Trelegy, Breo, Spiriva Hyperlipidemia 71381296 E78.5 Continue Atorvastat in Depressive disorder 3548 9007 F33.0 07/04/23- stable, Citalopram , Seroquel. Angina pectoris 50555315 0 I20.9 Continue Isosorbide . Essential hypertension 70911780 I10 07/04/23- stable, continue Metoprolol , HCTZ Muscle weakness 94906065 R53.1 Continue home exercises and continue with cane. Obesity 075074179 E66.9 Counseled on diet, exercise. [id number] Rian Corey DO [facility]) [address] [place] [id number] 10/04/2023 11:09:03 10/04/2023 14:57:42 Essential hypertension 99274704 I10 stable, continue Metoprolol , HCTZ Mass of left breast 1224 201140 8259511 N63.20 F/u scheduled for 10/16/23. Primary ma lignant neoplasm of female breast 98882835 C50.919 right breast, 2018, s/p right mastectomy . Followed by Dr. Reeder [facility] oncology Allergic rhinitis 268297 04 J30.9 steroid injection, counseled. Depressive disorder 3548 9007 F33.0 stable, Citalopram , Seroquel. Chronic ob structive pulmonary disease 92895069 J44.9 per PFTs 01/2020 with consistent and persistent symptoms. will add trelegy to albuterol. consider repeat PFTs. Return to office with no improvemen t or any problems. Go to ER with severe worsening or severe problems.c ontinue Trelegy, Breo, Spiriva [id number] PAWAN KO [facility] [address] [place] [phone] 5 10/18/2023 13:28:04 10/18/2023 13:53:20 Acute pansinusitis 9688842 J01.40 Discussed use of antibiotic . Take with food.May use Kuldeep's nasal inserts and also apply on chest. Push oral fluids. Consider nasal saline rinses and otc decongesta nt.Use tylenol/mo jared for schroeder. [id number] Rian Corey DO [facility]) [address] [place] [id number] 5 01/08/2024 10:44:50 01/08/2024 11:35:05 Essential hypertension 14628271 I10 stable, continue Metoprolol , HCTZ Depressive disorder 3548 9007 F33.0 stable, Citalopram , Seroquel. Chronic ob structive pulmonary disease 11752710 J44.9 per PFTs 01/2020 with consistent and persistent symptoms. will add trelegy to albuterol. consider repeat PFTs. Return to office with no improvemen t or any problems. Go to ER with severe worsening or severe problems.c ontinue Trelegy, Breo, Spiriva Iron defic iency anemia 71693354 D50.9 History of. Repeat labs today. Not taking iron. Neuropathy 976307154 G62 .9 New symptoms. Mostly bilateral hands. Not consistent with the individual nerve impingemen t will get labs today. Symptoms mild to moderate. If worsening consider nerve conduction study. [id number] Rian Corey DO [facility]) [address] [place] [id number] 03/19/2024 15:15:06 03/31/2024 22:34:21 Cough 87074588 R05.9 03/19/24- Flu/ Covid negative. Will treat with abx and Prednisone . Mass of colon 722524420 R19.09 I have reviewed and discussed colon cancer screening options, including colonoscop y. Discussed risks vs benefits including risk of infection and bleeding, perforatio n, possible need for surgery, reaction to medication s, and sever injury or . We discussed pt requiring sedation and possible general anesthesia . Pt agrees to proceed with Colonoscop y at [facility]. Preliminar y procedure date will be 04/11/24. Seizure 33105123 R56.9 Counseled decrease Keppra from 1000mg to 750mg, no recent seizure activity, having freqent numbness/ weakness. [id number] PAWAN TERRELL [facility] [address] [place] [id number] 5 05/31/2024 12:14:18 05/31/2024 13:54:02 Cough 17599887 R05.9 will send x ray to radiology. Follow up/call clinic if any new or worsening symptoms occur. [id number] Rian Corey DO [facility]) [address] [place] [id number] 5 06/11/2024 11:16:08 06/14/2024 15:41:54 Seizure 19812857 R56.9 Continue Keppra, 750mg. Cough 42889718 R05.9 06/11/24- Covid/ Flu negative. Counseled symptomati c tx. 4- Flu/ Covid negative. Will treat with abx and Prednisone . History of pulmonary embolus 723427757 Z86.711 Dec 2023, Eliquis. Coronary arteriosclerosis 86443670 I25.10 S/p cardiac stenting > 1 year ago. Counseled stop Asa. Continue Eliquis BID, if having bleeding trouble we will consider decreasing Eliquis 1/2 tab BID. [id number] PAWAN KO [facility] [address] [place] [id number] 5 08/02/2024 11:41:54 08/02/2024 14:04:07 Low back pain 050802021 M54.50 Discussed use of prescribed medication s. Pt states her PCP has prescribed hydro in the past for her pain. Will send for refill.Dis cussed use of heating pad for 20 minutes every couple hours and slow stretches to the back. [id number] VERA KOENIG APRN [facility] [address] [place] [address] [id number] 5 08/03/2024 17:37:08 08/03/2024 18:10:44 Herpes zoster 6533142 B02.9 [id number] Rian Corey DO [facility]) [address] [place] [address] [id number] 5 08/12/2024 15:40:59 08/20/2024 13:58:55 Obesity 288635009 E66.9 Counseled on diet, exercise. Low back pain 135998307 M54.50 unclear if this is from shingles pain or MS pain. will give IM steorids today. counseled Essential hypertension 38916206 I10 stable, continue Metoprolol , HCTZ Hyperlipidemia 80212133 E78.5 Continue Atorvastat in Moderate a ortic valve stenosis 511307481 I35.0 persistent with fu echo on 01/27/23. followed by Dr. Zavaleta, cardiology . counseled on results. History of malignant neoplasm of breast 921699980 Z85.3 right breast, 2018, s/p right mastectomy . Followed by Dr. Reeder, [facility] oncology Pulmonary hypertension 41837405 I27.20 moderate per ECHO 01/27/2023. continue care with cardiology . Chronic ob structive pulmonary disease 77997086 J44.9 per PFTs 01/2020 with consistent and persistent symptoms. will add trelegy to albuterol. consider repeat PFTs. Return to office with no improvemen t or any problems. Go to ER with severe worsening or severe problems.Jennifer Antunez Spiriva Depressive disorder 2158 9007 F33.0 stable, Citalopram , Seroquel. Muscle weakness 32698878 R53.1 Continue home exercises and continue with cane. Fatigue 53625989 R53.83 Stable. [id number] Rian Corey DO [facility]) [address] [place] [id number] 5 08/21/2024 14:43:50 08/22/2024 10:47:44 Hyperlipidemia 94502822 E78.5 Continue Atorvastat in, lab today. Essential hypertension 43935022 I10 stable, continue Metoprolol , HCTZ Iron defic iency anemia 57488592 D50.9 History of. Repeat labs today. Not taking iron. [id number] Rian Corey DO [facility]) [address] [place] [address] [id number] 5 09/17/2024 10:39:06 09/17/2024 18:00:51 Numbness [id number] R20.0 [id number] 09/17/24: Reassured pt and family that a stroke won't cause symptoms on both sides at the same time. Counseled take B complex daily, Vit D 4,000 iu daily. Lab today. [id number] Rian Corey DO [facility] ([facility]) [address] [place] [address] [phone] 10/09/2024 11:02:17 10/18/2024 17:33:14 Active immunization [id number] Z23 [id number] Shingrix today. Acute maxi llary sinusitis [id number] J01.00 [id number] 10/09/24: Abx, counseled. Muscle weakness 52011027 R53.1 Continue home exercises and continue with cane. [id number] Rian Corey DO [facility]) [address] [place] [address] [phone] 5 10/30/2024 11:53:26 11/04/2024 14:20:54 Angina pectoris [id number] I20.9 10/30/24: Hold Isosorbide at this time, BP is dropping intermitte ntly. Acute bronchitis 0769091 2 J20.9 [id number] 10/30/24: Prednisone 20mg for 7 days, abx, Flonase. History of malignant neoplasm of breast [id number] Z85.3 right breast, 2018, s/p right mastectomy . Followed by Dr. Reeder, [facility] oncology [id number] Rian Corey DO [facility] ([facility]) [address] [place] [address] [phone] 01/22/2025 11:50:34 02/04/2025 08:31:19 Acute laryngitis 1251715 J04.0 2596 01/22/25: Abx, cough syrup, counseled. [id number] Rian Corey DO [facility] ([facility]) [address] [place] [address] [phone] 04/28/2025 13:49:34 04/30/2025 12:29:40 Schizoaffective disorder [id number] F25.9 04/28/25: Counseled increase Quetiapine from 100mg at hs to 100mg BID, d/t seizure like activity. Seizure [id number] R56.9 F44.5 F44.6 72546 04/28/25: Has seen Dr. Duncan previously for evaluation of seizure like activity. Pt to increase Quetiapine to BID today, continue Keppra. F/u 3 weeks. [id number] Rian Corey DO [facility] ([facility]) [address] [place] [address] [phone] 05/07/2025 10:53:18 05/12/2025 11:17:24 Schizoaffective disorder [id number] F25.9 05/07/25: Significan t dry throat likely r/t Quetiapine , stop this and start Abilify. Counseled on diagnosis, treatment options including medication s and possible side effects.: Counseled increase Quetiapine from 100mg at hs to 100mg BID, d/t seizure like activity. Restless l egs syndrome [id number] G25.81 05/07/25: Pt to stop Ropinirole , this could be contributi ng to wkns. Recurrent falls 81152617 2 R29.6 [id number] Continue home exercises and continue with cane. Asthenia 81286508 R53.1 87595 05/05/25: Counseled will order HHC and PT, pt does not drive, she prefers to try PT at home. Seizure [id number] R56.9 F44.5 F44.6 05/07/25: Increase Keppra from 750mg to 1000mg, stop Quetiapine , counseled. 04/28/25: Has seen Dr. Duncan previously for evaluation of seizure like activity. Pt to increase Quetiapine to BID today, continue Keppra. F/u 3 weeks. Adult fail ure to thrive syndrome 843530455 R62.7 [id number] We will contact [facility] regarding need for admission for rehabilita tion. Syncope [id number] R55 [id number] Health Concerns Section Related Observation LastModified by Organization Detai ls LastModified Time None Recorded Concern Status LastModified by Organization Details LastModified Time None Recorded Advance Directives Directive None Recorded Payers Insurance Date Sequence Insurance Name Policy Number Policy Miranda Covered Member ID Miranda Member ID Guarantor Name 05/16/2025 2 [employer] (MEDICARE SUPPLEMENT) Karina Leija [id number] Karina Wiggins Heladio 04/28/2025 1 MEDICARE [place]: [place] Karina Leija [id number] Karina E Heladio 03/04/2025 [facility] [place] - [place] A - [facility] (MEDICARE) Karina Leija [id number] Karina Leija 04/28/2025 [facility] - [place] - PART A - [facility] (MEDICARE) Karina Leija [id number] Karina Leija Notes Date Note Type Note Provider Name and Address Organization Details Recorded Time 01/22/2025 text/html ROS as noted in the HPI Pt presents for cough She has had the cough for 1 week that has not resolved.She feels like there is something stuck in her throat when she coughs.She has pain in her chest and back when coughing. Both ears feel congested. Rian Corey DO [address] [place] [address], [phone], [facility] 02/04/2025 02:38:54 04/28/2025 text/html ROS as noted in the [...] Pt denies any h/o skin cancer. Rian Corey DO [address] [place] [address], [phone], [facility] 04/28/2025 18:33:22 05/05/2025 text/html ROS as noted in the HPI Pt presents for acute illness She c/o being weak and shaky since this am. It has worsened and she is using her walker today. She is afraid to walk with out her walker. She is unable to stand very long. She reports passing out, shaking in hands and arms, worse if she gets up and walks. We increased Quetiapine to BID on 04/28/25, one week ago, she feels this is helping, she is able to get things done around the house. Not Available Not Available Not Available 05/07/2025 text/html ROS as noted in the [...] alone, open to going to rehab at [facility] temporarily followed by [facility] if possible. She would like [facility] if possible. C/o dry throat. Rian Corey, [address], [phone], [facility] 05/07/2025 13:49:11 OBGyn Episode No OBEpisode recorded.
--- OUTSIDE RECORDS SUMMARY | 2025-05-18 23:26 | XMS_ITS | Clinical Summary ---
Author Organization [facility] Address [address] [place] [address] Phone Care Team Providers Care Wallpaper Hanger Name Role Phone Non-Staff, Physician Primary Care Provider Unava ilable Allergies No known active allergies Medications ibuprofen (MOTRIN) 200 mg tablet Take 200 mg by mouth every 6 hours as needed for Pain, Mild. Active atorvastatin (LIPITOR) 20 mg tabletIndication s:Hyperlipidemia LDL goal <100 Take 1 Tablet (20 mg) by mouth Daily LATE. 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 Gastroesophageal reflux disease without esophagi tis 06/25/2015 Right-sided low back pain without sciatica 06/25 Tobacco use 10/14/2014 Seizure disorder 08/03/2008 Dilantin toxicity 08/01/2008 Fall, accidental 08/01/2008 Overview (06/23/2010): Updating IMO/ICD9 Code and Description Dizziness 08/01/2008 Immunizations Immunization Administration Dates Next [...] on file Legal Sex Female 3:00 AM [facility] Gender Identity Not on file Sexual Orientation Not on file Occupation Industry Job Start Date Job End Date Not on file Not on file Not on file Not on file Last Filed Vital Signs Vital Sign Reading Time Taken Comments Blood Pressure 124/89 06/23/2016 9:00 PM [facility] Pulse 73 03/28/2016 10:06 AM CDT Temperature 36.7 C (98.1 F) 06/23/2016 6:39 PM [facility] Respiratory Rate 18 06/23/2016 9:00 PM [facility] Oxygen Saturation 94% 06/23/2016 9:00 PM [facility] Inhaled Oxygen Concentration - - Weight 52.2 [...] series) 02/21/2023 INFLUENZA VACCINE (#1) 2024 06/25/2015 Insurance MEDICARE PART A AND B AARP SUPP Care Teams Wallpaper Hanger Relationship Specialty Start Date End Date Non-Staff, Physician NO ADDRESS ON FILE PCP - General 05/01/18
--- NOTE | 2025-05-18 23:30 | W.ED.EPISTAX ---
HPI - Epistaxis General: Chief complaint: Epistaxis Stated complaint: NOSE BLEED History of Present Illness: Patient is a 75-year-old female with past medical history of A-fib on Eliquis, HLD, hypertension, seizures who presents to the ED with epistaxis. Started a few hours ago, from the right nostril, no trauma or apparent triggering etiology. She also had a earlier this week. She has never had nasal surgery. She denies any lightheadedness, chest pain, shortness of breath, difficulties breathing. Related Data Home Medications ?Medication ?Instructions ?Recorded ?Confirmed docusate sodium 100 mg capsule 100 mg PO BID 06/10/19 05/06/25 (Colace) calcium 600 mg (as 1 cap PO DAILY@20 12/16/19 05/06/25 carbonate)-vitamin D3 12.5 mcg (500 unit) capsule (Calcium with Vit D3) metoprolol tartrate 25 mg tablet 12.5 mg PO BID 03/30/21 05/06/25 pantoprazole 40 mg tablet,delayed 40 mg PO QAM 03/30/21 05/06/25 release hydrocodone 5 mg-acetaminophen 325 1 tab PO BID PRN Pain 08/17/22 05/06/25 mg tablet ascorbic acid (vitamin C) 500 mg 250 mg PO DAILY 01/11/24 05/06/25 tablet cholecalciferol (vitamin D3) 25 25 mcg PO DAILY 01/11/24 05/06/25 mcg (1,000 unit) capsule [id number] 4 mg-folic acid 1 tab PO DAILY 01/11/24 05/06/25 200 mcg-vit K 25 mcg-lutein tablet (Centrum Minis Women 50 Plus) sucralfate 1 gram tablet 1 g PO TID PRN Stomach Upset 01/11/24 05/06/25 clopidogrel 75 mg tablet 75 mg PO DAILY 09/24/24 05/06/25 fluticasone fur. 200 mcg-umeclid 1 inh inhalation DAILY 09/24/24 05/06/25 62.5 mcg-vilant 25 mcg inhalat.powder (Trelegy Ellipta) levetiracetam 750 mg tablet 750 mg PO BID 09/24/24 05/06/25 ropinirole 1 mg tablet 1 mg PO QPM 09/24/24 05/06/25 vitamin B complex 1 tab PO DAILY 09/24/24 05/06/25 quetiapine 100 mg tablet (Seroquel) 100 mg PO BID 04/28/25 05/06/25 atorvastatin 80 mg tablet 80 mg PO DAILY 05/06/25 05/06/25 quetiapine 50 mg tablet 50 mg PO BID 05/06/25 05/06/25 Previous Rx's ?Medication ?Instructions ?Recorded nitroglycerin 0.4 mg sublingual 0.4 mg sublingual Q5M PRN chest 09/13/21 tablet pain #30 tabs hydrochlorothiazide 12.5 mg tablet 12.5 mg PO DAILY PRN edema #90 tabs 01/09/23 apixaban 5 mg tablet (Eliquis) 5 mg PO BID #180 tabs 11/06/24 ranolazine 500 mg tablet,extended 500 mg PO BID #180 tabs 11/11/24 release,12 hr ferrous gluconate 324 mg (37.5 mg 324 mg PO DAILY #30 tabs 02/04/25 iron) tablet Allergies Allergy/AdvReac Type Severity Reaction Status Date / Time No Known Allergies Allergy Verified 05/06/25 12:24 Review of Systems General: Reports: 10 or more systems reviewed and unremarkable except in HPI and below PFSH ED PFSH: Medical History (Updated 05/19/25 @ 01:03 by Quique Brewer DO) Malignant neoplasm of overlapping sites of right female breast Varicose vein of leg Obesity HLD (hyperlipidemia) Aortic stenosis, mild Stable Angina pectoris Status post PCI to diagonal branch. No more angina CAD (coronary artery disease), [place] coronary artery Primary osteoarthritis of both hips Surgical History Hx of hysterectomy Hx of appendectomy Hx of right mastectomy History of total hip arthroplasty Family History Grandmother CAD (coronary artery disease) Hypertension Father CAD (coronary artery disease) Cancer Diabetes Hypertension Lung disease Mother Cancer Dementia Diabetes Hypertension Daughter Chronic kidney disease (CKD) eldest Hypertension Daughter Chronic kidney disease (CKD) third child Sister Hyperlipidemia all sisters Hypertension Lung disease Unknown Suicide maternal aunt-GSW- mid 40s Social History Smoking and tobacco/nicotine status: former use of tobacco/nicotine Quit status (tobacco/nicotine): has quit using Year quit tobacco: 2017 Second hand smoke exposure: Yes Alcohol intake: never Substance/Drug Use: never Physical Exam Narrative: EXAM NARRATIVE: Well-appearing, afebrile, vital stable on arrival. Packing to right gauze coming in nothing coming from the left nostril, with dressing taken down, no persistent oozing but mild to moderate amount of blood seen in deep nostril, no blood in oropharynx, breathing comfortably on room air, saturating well, no increased work of breathing, no stridor. Abdomen soft, nontender, nondistended, bowel sounds intact. GCS 15, moving all 4 extremities spontaneously and symmetrically. Course Vital Signs: Vital signs: Vital Signs Temperature 97.8 F 05/18/25 23:07 Pulse Rate 70 05/19/25 02:55 Respiratory Rate 16 05/19/25 02:55 Blood Pressure 112/58 05/19/25 02:55 Pulse Oximetry 95 05/19/25 02:55 Oxygen Delivery Me thod Room Air 05/18/25 23:07 MDM - Epistaxis Medical Decision Making -ddx: Anterior versus posterior epistaxis, coagulopathy, dehumidified air, nasal trauma - Patient overall well-appearing, with seemingly controlled bleeding on arrival, mild to moderate amount of blood seen without any active draining from nose and the back, will apply Afrin, reapplied pressure and reevaluate. Today denies any pain or symptoms of symptomatic anemia at this time so we will defer labs unless bleeding persists. - After about an hour with pressure removed, no evidence of rebleeding after given time, vitals remained stable, unchanged respiratory status and so patient discharged with the bottle of Afrin and given clear precautions on how to use this if nosebleeds occur in the future to which she was agreeable with and she was discharged back to her senior living in stable condition. No radiology studies performed this visit Discharge Plan Discharge Patient Disposition: Home Clinical Impression: Epistaxis Condition: Stable Prescriptions: No Action docusate sodium [Colace] 100 mg capsule 100 mg PO BID calcium carbonate-vitamin D3 [Calcium 600 with Vitamin D3] 600 mg(1,500mg) -500 unit capsule 1 cap PO DAILY@20 hydrochlorothiazide 12.5 mg tablet 12.5 mg PO DAILY PRN (Reason: edema) Qty: 90 0RF cholecalciferol (vitamin D3) 25 mcg (1,000 unit) capsule 25 mcg PO DAILY ascorbic acid (vitamin C) 500 mg tablet 250 mg PO DAILY Centrum Minis Women 50 Plus 4 mg iron-200 mcg-25 mcg tablet 1 tab PO DAILY sucralfate 1 gram tablet 1 g PO TID PRN (Reason: Stomach Upset) nitroglycerin 0.4 mg tablet, sublingual 0.4 mg SUBLINGUAL Q5M PRN (Reason: chest pain) Qty: 30 2RF Rx Instructions: until response; do not exceed 3 doses per episode Eliquis 5 mg tablet 5 mg PO BID Qty: 180 3RF ranolazine 500 mg tablet extended release 12 hr 500 mg PO BID Qty: 180 3RF ferrous gluconate 324 mg (37.5 mg iron) tablet 324 mg PO DAILY Qty: 30 6RF metoprolol tartrate 25 mg tablet 12.5 mg PO BID pantoprazole 40 mg tablet,delayed release (DR/EC) 40 mg PO QAM atorvastatin 80 mg tablet 80 mg PO DAILY quetiapine 50 mg tablet 50 mg PO BID Rx Instructions: Take with the !00 mg Quetiapine twice daily . hydrocodone-acetaminophen 5-325 mg tablet 1 tab PO BID PRN (Reason: Pain) quetiapine [Seroquel] 100 mg tablet 100 mg PO BID Rx Instructions: Night and morning ropinirole 1 mg tablet 1 mg PO QPM levetiracetam 750 mg tablet 750 mg PO BID clopidogrel 75 mg tablet 75 mg PO DAILY Trelegy Ellipta 200-62.5-25 mcg blister with device 1 inh INHALATION DAILY vitamin B complex Tablet 1 tab PO DAILY Discharge Orders: Discharge ED (Routine); Ordered 05/19/25 Ordered By: Quique Brewer Referrals: Justin Chapman DO [Primary Care Provider, Family Practice] Discharge Diet: Advance as tolerated and Usual diet Discharge Activity: Resume usual activity Patient Instructions: Opioid Safety, Pain Management, Patient Portal & Alan Instructions Activity Restrictions/Additional Instructions: You were seen for your nosebleed, by the time you got here, it had seemingly decreased on its own but to be safe, Afrin was sprayed and then pressure was applied for a period of time and then when removed, the bleeding had seemingly subsided. In the future if you develop another nosebleed, blow out any clots and then use 2 sprays of Afrin and then bend your head forward and hold pressure for 30 minutes to see if this helps and if not return to the ED for reevaluation. Print Language: Swedish Coding Level of Care Code ED Knuckle Bender for Phillip Flores
--- NOTE | 2025-05-19 00:40 | PC.NURSE ---
while patient is sleeping her oxygen saturation dropped and stayed 88% oxygen applied at 2 liters nasal cannula. doctor notified.
[2025-05-19 01:07] VITALS: BP 112/58; PULSE 73; RESP 17; O2SAT 97
[2025-05-19 02:55] VITALS: BP 112/58; PULSE 70; RESP 16; O2SAT 95
== END 2025-05-19 02:57 | disposition home or self-care (01) ==
PROVIDERS: Emergency Provider Student in an Organized Health Care Education/Training Program; PCP Electrodiagnostic Medicine
DX: R04.0 Epistaxis (principal); Z79.01 Long term (current) use of anticoagulants; Z79.02 Long term (current) use of antithrombotics/antiplatelets; Z87.891 Personal history of nicotine dependence
CPT/HCPCS: 99283; J9999